=== PATIENT | male | born 1945 | race Caucasian/White ===

== ENCOUNTER 2017-03-06 18:10 | Emergency (ER) | payer MEDICARE ==
[2017-03-06 18:16] VITALS: BP 144/70; PULSE 73; RESP 16; TEMP 96.9
--- NOTE | 2017-03-06 18:53 | XR ---
EXAMINATION TYPE: XR lumbar spine 2 or 3V DATE OF EXAM: 03/06/2017 6:44 PM COMPARISON: NONE HISTORY: Low back pain TECHNIQUE: 3 views FINDINGS: Vertebra have normal alignment. There is some osteopenia. There is 10% anterior wedging of T12 vertebra. There is some vascular calcification. Sacroiliac joints are intact. IMPRESSION: Mild compression fracture of T12 is probably old. Osteopenia.
[2017-03-06] MEDS ORDERED: TOPICAL SKIN ADHESIVE 1 EACH AMP TOPICAL ONE (18:56)
--- NOTE | 2017-03-06 18:56 | ED ---
General Adult HPI - General Chief complaint: Back Pain/Injury Stated complaint: sore on back bleeding, on dialysis Time Seen by Provider: 03/06/17 18:19 Source: patient, RN notes reviewed Mode of arrival: wheelchair Limitations: no limitations - History of Present Illness Initial comments: Patient is a 71-year-old male who presents emergency room today with chief complaint of lower back pain and also a spot that is bleeding into his back. Patient does admit that he injured his back today when he was lifting up the [place] with a methodist. He does admit that his lower back has been bothering him with certain movements of events or twists. He states he took Tylenol earlier today which did give him some relief. Patient admits that he was also had a hot shower which also helped. Patient admits that he had a growth removed on the right side of his back several years ago. He states that he believes he scratched history positive bleed. Patient states that at that time stopping the bleeding at home. She is not on any blood thinners. He denies any other complaints or symptoms at this time. Patient denies any recent fever, chills, shortness of breath, chest pain, abdominal pain, nausea or vomiting, numbness or tingling, dysuria or hematuria, constipation or diarrhea, headaches or visual changes, or any other complaints. - Related Data Home Medications Medication Instructions Recorded Confirmed Aspirin EC [Ecotrin Low Dose] 81 mg PO DAILY 03/06/17 03/06/17 Atenolol [Tenormin] 25 mg PO DAILY 03/06/17 03/06/17 Atorvastatin [Lipitor] 40 mg PO HS 03/06/17 03/06/17 Calcium Carb-Mag Carb-Folic 1 tab PO TID-W/MEALS 03/06/17 03/06/17 [Magnebind 400 Rx] Furosemide [Lasix] 80 mg PO BID 03/06/17 03/06/17 Gemfibrozil [Lopid] 600 mg PO W/SUPPER 03/06/17 03/06/17 Lanthanum Carbonate [Fosrenol] 1,000 mg PO TID-W/MEALS 03/06/17 03/06/17 Lisinopril 40 mg PO DAILY 03/06/17 03/06/17 Omeprazole [PriLOSEC] 20 mg PO W/SUPPER 03/06/17 03/06/17 Sevelamer [Renvela] 1,600 mg PO TID-W/MEALS 03/06/17 03/06/17 Tamsulosin HCl [Flomax] 0.4 mg PO DAILY 03/06/17 03/06/17 Previous Rx's Medication Instructions Recorded Cyclobenzaprine [Flexeril] 10 mg PO TID #20 tab 03/06/17 Allergies Allergy/AdvReac Type Severity Reaction Status Date / Time garlic AdvReac Diarrhea Verified 03/06/17 18:38 prednisone AdvReac Increased Verified 03/06/17 18:38 Blood Pressure sour cream AdvReac Diarrhea Uncoded 03/06/17 18:38 Review of Systems ROS Statement: Those systems with pertinent positive or pertinent negative responses have been documented in the HPI. ROS Other: All systems not noted in ROS Statement are negative. Past Medical History Past Medical History: Coronary Artery Disease (CAD), Diabetes Mellitus, Hyperlipidemia, Hypertension, Renal Disease Additional Past Medical History / Comment(s): Hx. cataracts removed bilat 2003 Hx. kidney biopsy 2012 History of Any Multi-Drug Resistant Organisms: None Reported Past Surgical History: Heart Catheterization With Stent Additional Past Surgical History / Comment(s): fistula left arm, Hx. carotid artery surgery 2006 Past Anesthesia/Blood Transfusion Reactions: No Reported Reaction Date of Last Stent Placement:: 2011 Past Psychological History: No Psychological Hx Reported Smoking Status: Never smoker Past Alcohol Use History: None Reported Past Drug Use History: None Reported - Past Family History Father Additional Family Medical History / Comment(s): Hx. father "brights disease" age 47 Mom CHF at 81 General Exam - General Exam Comments Initial Comments: General: The patient is awake and alert, in no distress, and does not appear acutely ill. Eye: Pupils are equal, round and reactive to light, extra-ocular movements are intact. No nystagmus. There is normal conjunctiva bilaterally. No signs of icterus. Ears, nose, mouth and throat: There are moist mucous membranes and no oral lesions. Neck: The neck is supple, there is no tenderness or JVD. Cardiovascular: There is a regular rate and rhythm. No murmur, rub or gallop is appreciated. Respiratory: Lungs are clear to auscultation, respirations are non-labored, breath sounds are equal. No wheezes, stridor, rales, or rhonchi. Musculoskeletal: Normal ROM, no tenderness. Pain reproduced certain movements of turning, twisting, bending in the lower back. Strength 5/5. Sensation intact. Pulses equal bilaterally 2+. Neurological: A&O x 3. CN II-XII intact, There are no obvious motor or sensory deficits. Coordination appears grossly intact. Speech is normal. Skin: Psychiatric: Cooperative, appropriate mood & affect, normal judgment. Limitations: no limitations Course Vital Signs 03/06/17 18:12 Temperature 96.9 F L Pulse Rate 73 Respiratory 16 Rate Blood Pressure 144/70 O2 Sat by Pulse 100 Oximetry Medical Decision Making - Medical Decision Making 71-year-old male presenting to emergency room for multiple complaints. Does admit to a growth on the back that it began bleeding today. Please see scratched it. Also admits to increased lower back pain over the last few days since lifting a piano top. Patient reexamined at this time shows no signs of distress. His x-ray reviewed does show a indeterminate age fracture of T12. Patient does admit to a fall several weeks ago. At this time patient is advised to follow-up with orthopedics. Advised patient not to bend at waist. Wound has been dressed cleaned here in the emergency room and closed with Dermabond. Patient is advised follow-up with family doctor. Advised return to emergency room if any symptoms increase or worsen. Patient will be started on Flexeril for his pain. Advised that it may make him drowsy. Advised return for any other concerns. Disposition Clinical Impression: Vertebral compression fracture Disposition: HOME SELF-CARE Condition: Good Instructions: Acute Low Back Pain (ED) Additional Instructions: Please follow-up with family doctor and orthopedic doctor over the next 1-2 days. Please do not bend at the waist as discussed. Please use Tylenol for pain and Flexeril as a muscle relaxer. Please be aware that muscle laxer may make you drowsy. Please return to emergency room if any symptoms increase worsen or for any other concerns. Prescriptions: Cyclobenzaprine [Flexeril] 10 mg PO TID #20 tab Referrals: Gene Girard MD [Primary Care Provider] - 1-2 days Caitlyn Mon DO [Doctor of Osteopathic Medicine] - 1-2 days Time of Disposition: 19:13
[2017-03-06] MEDS ORDERED: CYCLOBENZAPRINE 10MG STARTER 3 TAB BTL PO STA (19:11)
== END 2017-03-06 19:31 | disposition home or self-care (01) ==
LOC: EC 18:10
DX: S22.089A Unspecified fracture of T11-T12 vertebra, initial encounter for closed fracture (principal); S31.000A Unspecified open wound of lower back and pelvis without penetration into retroperitoneum, initial encounter; M85.88 Other specified disorders of bone density and structure, other site; I25.10 Atherosclerotic heart disease of native coronary artery without angina pectoris; E78.5 Hyperlipidemia, unspecified; I10 Essential (primary) hypertension; N28.9 Disorder of kidney and ureter, unspecified; Z95.5 Presence of coronary angioplasty implant and graft; Z99.2 Dependence on renal dialysis; Z88.8 Allergy status to other drugs, medicaments and biological substances; Z91.018 Allergy to other foods; Z79.82 Long term (current) use of aspirin; Z79.899 Other long term (current) drug therapy; X50.0XXA Overexertion from strenuous movement or load, initial encounter
CPT/HCPCS: 12001; 72100; 99283

== ENCOUNTER 2018-06-02 21:57 | Inpatient (IN) | payer MEDICARE ==
--- NOTE | 2018-06-02 22:24 | ED ---
Weakness HPI - General Chief complaint: Weakness Stated complaint: Hypotensive Time Seen by Provider: 06/02/18 22:07 Source: patient Mode of arrival: ambulatory Limitations: no limitations - History of Present Illness Initial comments: This patient is a 72-year-old man who presents to be evaluated for generalized weakness and fatigue. The patient states the symptoms have been going on for a few weeks, although only 1 prominent over the past couple of days. He states that the symptoms are particularly bad if he tries to exert himself or when he goes from lying or sitting to upright. He states that sometimes he feels like he'll pass out. The patient believes that he is dehydrated. He has had previous problems with hypotension, and states that he tried to treat himself by increasing his Midodrine, and that helped a little no he still does not feel like his usual self. The patient denies feeling like he has any infection going on. He has not noted sinus type symptoms. No sore throat, cough, congestion. No fever or chills. No chest pain or dyspnea. No abdominal pain, vomiting or diarrhea. The patient states that he does make a little urine but has not noticed any change in that. MD Complaint: generalized weakness, lack of energy, difficulty walking Onset/Timin -: week(s) Location: generalized Severity: moderate Consistency: constant Improves with: none Worsens with: none Associated Symptoms: denies other symptoms - Related Data Home Medications Medication Instructions Recorded Confirmed Aspirin EC [Ecotrin Low Dose] 81 mg PO DAILY 03/06/17 07/12/17 Atenolol [Tenormin] 12.5 mg PO QAM 03/06/17 07/12/17 Atorvastatin [Lipitor] 40 mg PO HS 03/06/17 07/12/17 Calcium Carb-Mag Carb-Folic 3 tab PO TID-W/MEALS 03/06/17 07/12/17 [Magnebind 400 Rx] Gemfibrozil [Lopid] 600 mg PO W/SUPPER 03/06/17 07/12/17 Lanthanum Carbonate [Fosrenol] 1,000 mg PO TID-W/MEALS 03/06/17 07/12/17 Omeprazole [PriLOSEC] 20 mg PO W/SUPPER 03/06/17 07/12/17 Sevelamer [Renvela] 1,600 mg PO TID-W/MEALS 03/06/17 07/12/17 Tamsulosin HCl [Flomax] 0.4 mg PO DAILY 03/06/17 07/12/17 Ciprofloxacin HCl [Cipro] 500 mg PO Q12HR 07/12/17 07/12/17 Gabapentin [Neurontin] 100 mg PO Q8H PRN 07/12/17 07/12/17 Hydrocortisone Pr Cream 1 applic RECTAL DAILY PRN 07/12/17 07/12/17 [Proctosol-Hc 2.5%] Midodrine [ProAmatine] 5 mg PO DAILY PRN 07/12/17 07/12/17 Polyethylene Glycol 3350 [Miralax] 1 dose PO DAILY PRN 07/12/17 07/12/17 Renaplex 1 tab PO DAILY 07/12/17 Sodium Bicarbonate Tab 650 mg PO BID 07/12/17 07/12/17 Velphoro 500 mg PO QAM 07/12/17 fentaNYL 12MCG/HR PATCH [Duragesic 1 patch TOPICAL Q72H 07/12/17 07/12/17 12MCG/HR] Allergies Allergy/AdvReac Type Severity Reaction Status Date / Time hydromorphone [From Dilaudid] Allergy Hallucinati Verified 06/02/18 22:03 ons garlic AdvReac Diarrhea Verified 06/02/18 22:03 prednisone AdvReac Increased Verified 06/02/18 22:03 Blood Pressure sour cream AdvReac Diarrhea Uncoded 06/02/18 22:03 Review of Systems ROS Statement: Those systems with pertinent positive or pertinent negative responses have been documented in the HPI. ROS Other: All systems not noted in ROS Statement are negative. Constitutional: Reports: weakness (The last). Denies: fever, chills ENT: Denies: throat pain, congestion Respiratory: Denies: cough, dyspnea Cardiovascular: Denies: chest pain, palpitations, orthopnea, edema, syncope Gastrointestinal: Denies: abdominal pain, vomiting, diarrhea, melena, hematochezia Genitourinary: Denies: dysuria Musculoskeletal: Reports: back pain (Chronic back pain, he states due to compression fractures) Skin: Denies: rash Neurological: Denies: headache, weakness, numbness, confusion Past Medical History Past Medical History: Coronary Artery Disease (CAD), Diabetes Mellitus, Hyperlipidemia, Hypertension, Renal Disease Additional Past Medical History / Comment(s): PERITONEAL DIALYSIS (CAPD).Hx. cataracts removed bilat 2003 Hx. kidney biopsy 2012 History of Any Multi-Drug Resistant Organisms: None Reported Past Surgical History: Heart Catheterization With Stent Additional Past Surgical History / Comment(s): FIstula left arm. Hx. carotid artery surgery 2005 Past Anesthesia/Blood Transfusion Reactions: No Reported Reaction Date of Last Stent Placement:: 2011 Past Psychological History: No Psychological Hx Reported Smoking Status: Never smoker Past Alcohol Use History: None Reported Past Drug Use History: None Reported - Past Family History Father Additional Family Medical History / Comment(s): Hx. father "brights disease" age 47 Mom CHF at 81 Brother(s) Family Medical History: Deep Vein Thrombosis (DVT) General Exam Limitations: no limitations General appearance: alert, in no apparent distress Head exam: Present: atraumatic, normocephalic Eye exam: Present: normal appearance, PERRL, EOMI. Absent: scleral icterus, conjunctival injection ENT exam: Present: mucous membranes dry Neck exam: Present: normal inspection Respiratory exam: Present: normal lung sounds bilaterally. Absent: respiratory distress, wheezes, rales, rhonchi, stridor Cardiovascular Exam: Present: regular rate, normal rhythm, normal heart sounds. Absent: systolic murmur, diastolic murmur, rubs, gallop GI/Abdominal exam: Present: soft. Absent: distended, tenderness, guarding, rebound Extremities exam: Present: normal inspection, normal capillary refill. Absent: pedal edema, calf tenderness Back exam: Present: normal inspection Neurological exam: Present: alert, oriented X3. Absent: motor sensory deficit Skin exam: Present: warm, dry, intact, normal color. Absent: rash Course Vital Signs 06/02/18 06/02/18 06/02/18 21:59 23:03 23:48 Temperature 98 F Pulse Rate 85 83 80 Respiratory 20 20 20 Rate Blood Pressure 118/70 113/68 129/73 O2 Sat by Pulse 97 99 99 Oximetry EKG Findings - EKG Results: EKG: interpreted by LISETD, sinus rhythm (With PAC, rate 77 bpm), normal axis, normal QRS, normal ST/T Medical Decision Making - Lab Data Result diagrams: 06/02/18 22:23 06/02/18 22:23 Lab Results 06/02/18 06/02/18 06/02/18 Range/Units 22:23 22:23 22:23 WBC 9.5 (3.8-10.6) k/uL RBC 3.64 L (4.30-5.90) m/uL Hgb 10.7 L (13.0-17.5) gm/dL Hct 33.2 L (39.0-53.0) % MCV 91.1 (80.0-100.0) fL MCH 29.3 (25.0-35.0) pg MCHC 32.1 (31.0-37.0) g/dL RDW 15.7 H (11.5-15.5) % Plt Count 356 (150-450) k/uL Neutrophils % (Manual) 74 % Lymphocytes % (Manual) 14 % Monocytes % (Manual) 10 % Eosinophils % (Manual) 2 % Neutrophils # (Manual) 7.03 (1.3-7.7) k/uL Lymphocytes # (Manual) 1.33 (1.0-4.8) k/uL Monocytes # (Manual) 0.95 (0-1.0) k/uL Eosinophils # (Manual) 0.19 (0-0.7) k/uL Nucleated RBCs 0 (0-0) /100 WBC Manual Slide Review Performed RBC Morphology Normal PT (9.0-12.0) sec INR (<1.2) APTT (22.0-30.0) sec Sodium 135 L (137-145) mmol/L Potassium 5.0 (3.5-5.1) mmol/L Chloride 92 L (98-107) mmol/L Carbon Dioxide 24 (22-30) mmol/L Anion Gap 19 mmol/L BUN 67 H (9-20) mg/dL Creatinine 10.90 H* (0.66-1.25) mg/dL Est GFR (CKD-EPI)AfAm 5 (>60 ml/min/1.73 sqM) Est GFR (CKD-EPI)NonAf 4 (>60 ml/min/1.73 sqM) Glucose 126 H (74-99) mg/dL Plasma Lactic Acid Zhen (0.7-2.0) mmol/L Calcium 10.1 (8.4-10.2) mg/dL Magnesium 2.9 H (1.6-2.3) mg/dL Total Bilirubin 0.5 (0.2-1.3) mg/dL AST 19 (17-59) U/L ALT 28 (21-72) U/L Alkaline Phosphatase 98 (38-126) U/L Total Creatine Kinase 51 L (55-170) U/L CK-MB (CK-2) 1.7 (0.0-2.4) ng/mL CK-MB (CK-2) Rel Index 3.3 Troponin I <0.012 (0.000-0.034) ng/mL NT-Pro-B Natriuret Pep pg/mL Total Protein 6.5 (6.3-8.2) g/dL Albumin 3.8 (3.5-5.0) g/dL TSH 0.317 L (0.465-4.680) mIU/L 06/02/18 06/02/18 06/02/18 Range/Units 22:23 22:23 22:23 WBC (3.8-10.6) k/uL RBC (4.30-5.90) m/uL Hgb (13.0-17.5) gm/dL Hct (39.0-53.0) % MCV (80.0-100.0) fL MCH (25.0-35.0) pg MCHC (31.0-37.0) g/dL RDW (11.5-15.5) % Plt Count (150-450) k/uL Neutrophils % (Manual) % Lymphocytes % (Manual) % Monocytes % (Manual) % Eosinophils % (Manual) % Neutrophils # (Manual) (1.3-7.7) k/uL Lymphocytes # (Manual) (1.0-4.8) k/uL Monocytes # (Manual) (0-1.0) k/uL Eosinophils # (Manual) (0-0.7) k/uL Nucleated RBCs (0-0) /100 WBC Manual Slide Review RBC Morphology PT 9.6 (9.0-12.0) sec INR 1.0 (<1.2) APTT 22.7 (22.0-30.0) sec Sodium (137-145) mmol/L Potassium (3.5-5.1) mmol/L Chloride (98-107) mmol/L Carbon Dioxide (22-30) mmol/L Anion Gap mmol/L BUN (9-20) mg/dL Creatinine (0.66-1.25) mg/dL Est GFR (CKD-EPI)AfAm (>60 ml/min/1.73 sqM) Est GFR (CKD-EPI)NonAf (>60 ml/min/1.73 sqM) Glucose (74-99) mg/dL Plasma Lactic Acid Zhen 1.0 (0.7-2.0) mmol/L Calcium (8.4-10.2) mg/dL Magnesium (1.6-2.3) mg/dL Total Bilirubin (0.2-1.3) mg/dL AST (17-59) U/L ALT (21-72) U/L Alkaline Phosphatase (38-126) U/L Total Creatine Kinase (55-170) U/L CK-MB (CK-2) (0.0-2.4) ng/mL CK-MB (CK-2) Rel Index Troponin I (0.000-0.034) ng/mL NT-Pro-B Natriuret Pep 8570 pg/mL Total Protein (6.3-8.2) g/dL Albumin (3.5-5.0) g/dL TSH (0.465-4.680) mIU/L Disposition Clinical Impression: Hypotension, Acute on chronic renal failure Disposition: ADMITTED IP TO THIS HOSP Condition: Poor Referrals: Gene Girard MD [Primary Care Provider] - 1-2 days
[2018-06-02 22:44] LABS: HCT 33.2 % (39.0-53.0); HGB 10.7 gm/dL (13.0-17.5); MCH 29.3 pg (25.0-35.0); MCHC 32.1 g/dL (31.0-37.0); MCV 91.1 fL (80.0-100.0); Mean Platelet Volume 7.5; Platelet Count 356 k/uL (150-450); RBC 3.64 m/uL (4.30-5.90); RDW 15.7 % (11.5-15.5); WBC 9.5 k/uL (3.8-10.6)
[2018-06-02 22:56] LABS: Albumin 3.8 g/dL (3.5-5.0); Calcium 10.1 mg/dL (8.4-10.2); Magnesium 2.9 mg/dL (1.6-2.3); Total Bilirubin 0.5 mg/dL (0.2-1.3); Total Protein 6.5 g/dL (6.3-8.2)
[2018-06-02 22:57] LABS: Eosinophils # (M) 0.19 k/uL (0-0.7); Lymphocytes # (M) 1.33 k/uL (1.0-4.8); Monocytes # (M) 0.95 k/uL (0-1.0); Neutrophils # (M) 7.03 k/uL (1.3-7.7); Neutrophils % (M) 74 %; Nucleated Red Blood Cells 0 /100 WBC (0-0); Total Cells Counted 100
[2018-06-02 22:59] LABS: Partial Thromboplastin Time 22.7 sec (22.0-30.0); Prothrombin Time 9.6 sec (9.0-12.0)
[2018-06-02 23:03] LABS: Creatine Kinase 51 U/L (55-170)
[2018-06-02] MEDS ORDERED: SODIUM CHLORIDE 0.9% 500 ML IV STA (23:04)
[2018-06-02 23:16] LABS: Creatine Kinase MB 1.7 ng/mL (0.0-2.4); Troponin I <0.012 ng/mL (0.000-0.034)
--- NOTE | 2018-06-03 00:09 | XR ---
EXAMINATION TYPE: XR chest 1V portable DATE OF EXAM: 06/02/2018 COMPARISON: NONE HISTORY: Weakness TECHNIQUE: Single frontal view of the chest is obtained. FINDINGS: There is no heart failure nor confluent pneumonic infiltrate. Thoracic aorta is atheromato us. Costophrenic angles are clear. There are chest leads. IMPRESSION: No active cardiopulmonary disease. Atheromatous aorta. There is probably old healed post erior right rib fracture.
[2018-06-03] MEDS ORDERED: ACETAMINOPHEN TAB 325 MG TAB PO PRN (01:14)
[2018-06-03] MEDS ORDERED: NALOXONE 0.4 MG/ML 1 ML VIAL IV PRN (01:14)
[2018-06-03] MEDS ORDERED: HYDROCORTISONE 2.5% RECTAL CREAM 30 GM TUBE RECTAL PRN (01:16)
[2018-06-03] MEDS ORDERED: MIDODRINE 5 MG TAB PO PRN (01:16)
[2018-06-03] MEDS ORDERED: GABAPENTIN 100 MG CAP PO PRN (01:16)
[2018-06-03] MEDS ORDERED: SEVELAMER 800 MG TAB PO SCH (07:30)
[2018-06-03 07:50] LABS: Glucose,Whole Blood 93 mg/dL (75-99)
[2018-06-03] MEDS: CALCIUM CARB-MAG CARB-FOLIC 1 EACH TAB PO SCH ×3 (08:37→17:35)
[2018-06-03] MEDS: ATENOLOL 12.5 MG TAB PO SCH (08:38)
[2018-06-03] MEDS: SEVELAMER 800 MG TAB PO SCH ×3 (08:38→17:36)
[2018-06-03] MEDS: ASPIRIN 81 MG PO SCH (08:38)
[2018-06-03] MEDS: TAMSULOSIN 0.4 MG CAP.ER.24H PO SCH (08:39)
[2018-06-03] MEDS: SODIUM BICARBONATE TAB 650 MG TAB PO SCH ×2 (08:39→20:45)
[2018-06-03] MEDS: HEPARIN SODIUM,PORCINE 5,000 UNIT/ML 1 ML VIAL SQ SCH ×2 (08:39→20:44)
[2018-06-03] MEDS: DIALYSIS (PERIT 1.5%) 2,500 ML 37.5 G/2,500 ML BAG INTRAPERIT SCH ×3 (10:38→23:33)
[2018-06-03] MEDS: HYDROcodone/APAP 7.5-325MG 1 EACH TAB PO PRN (11:36)
[2018-06-03 11:55] LABS: Glucose,Whole Blood 117 mg/dL (75-99)
[2018-06-03] MEDS: FOLIC ACID-VIT B COMPLEX-VIT C 1 CAP PO SCH (13:11)
[2018-06-03] MEDS ORDERED: HYDROcodone/APAP 7.5-325MG 1 EACH TAB PO PRN (13:34)
[2018-06-03] MEDS ORDERED: POLYETHYLENE GLYCOL 3350 17 GM POWD.PACK PO PRN (13:34)
[2018-06-03] MEDS ORDERED: DARBEPOETIN ALFA 40 MCG/0.4 ML SYRINGE SQ SCH (14:30)
--- NOTE | 2018-06-03 15:07 | CONS ---
CONSULTATION REASON FOR CONSULT: End-stage renal disease. HISTORY OF PRESENT ILLNESS: The patient is a 72-year-old male with end-stage renal disease, on peritoneal dialysis. He was admitted to the hospital with complaints of increasing weakness over the past few days. The patient stated he had been feeling dizzy as well. He denied any chest pains. He did have some nausea. He did not have any abdominal pain. His fluid has been clear. Blood pressure was low, but his systolic was above 100. The patient was 113/68 when he came in. The patient states blood pressure had been running much lower as outpatient. His hemoglobin was at 10.7. Cardiac enzymes were negative. PAST MEDICAL HISTORY: End-stage renal disease, CKD mineral bone disorder, hypertension, anemia of chronic disease, gastroesophageal reflux disease, dyslipidemia, hypertension. ALLERGIES: INCLUDE PREDNISONE, GARLIC, DILAUDID. REVIEW OF SYSTEMS: As per HPI. Other systems negative. PAST SURGICAL HISTORY: CAPD catheter placement, cataract surgery, kidney biopsy, cardiac catheterization with coronary stent placement, left arm AV fistula. Carotid endarterectomy. SOCIAL HISTORY: Negative for smoking, drug abuse or alcohol abuse. EXAMINATION: Patient is comfortable, awake, alert, oriented x3. He is not in any acute distress. Blood pressure was 133/70, heart rate 88 per minute. Patient is afebrile. Examination of the heart S1, S2. Examination lungs bilateral breath sounds are heard. Abdomen is soft, nontender. Examination lower extremities shows no evidence of edema. G[employer] O[employer]ATOR exam is grossly intact. LAB: Show sodium 135, potassium 5.0, phosphorus was 8.0, hemoglobin 10.7 g/dL. ASSESSMENT: 1. End-stage renal disease, on peritoneal dialysis. We will continue to maintain patient on PD. We will maintain him on 1.5% exchanges. Blood pressure is not significantly low in the hospital. I do not see an obvious source of infection. We will continue to monitor for now. 2. 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 The patient is advised to continue his home phosphate binders. 3. Anemia of chronic disease. We will maintain patient on Aranesp. 4. History of hypertension, maintained on small dose of Tenormin and Norvasc. PLAN: Maintain 1.5% solution q.6 hours for now. Repeat labs in a.m. Maintain patient on Aranesp. Thank you for this consultation. We will continue to follow the patient with you during his hospitalization. OTTO / WIL[place]: [id number] /
[2018-06-03] MEDS: PANTOPRAZOLE 40 MG TABLET PO SCH (15:31)
[2018-06-03 15:48] LABS: Amorphous Sediment,Urine Rare /hpf; Appearance,Urine Clear (Clear); Bilirubin,Urine Negative (Negative); Blood,Urine Negative (Negative); Color,Urine Light Yellow; Glucose,Urine (UA) 2+ (Negative); Hyaline Casts,Urine 1 /lpf (0-2); Ketones,Urine Negative (Negative); Leukocyte Esterase,Urine Negative (Negative); Mucus,Urine Rare /hpf; Nitrite,Urine Negative (Negative); PH, Urine 8.5 (5.0-8.0); Protein,Urine 2+ (Negative); RBC,Urine 1 /hpf (0-5); Specific Gravity,Urine 1.007 (1.001-1.035); Urobilinogen,Urine <2.0 mg/dL (<2.0); WBC,Urine 15 /hpf (0-5)
[2018-06-03] MEDS: MAGNEBIND PO SCH ×2 (17:15→20:41)
[2018-06-03 17:24] LABS: Glucose,Whole Blood 114 mg/dL (75-99)
[2018-06-03] MEDS ORDERED: PANTOPRAZOLE 40 MG TABLET PO SCH (17:30)
[2018-06-03] MEDS: CALCIUM ACETATE 667 MG CAP PO SCH (17:35)
--- NOTE | 2018-06-03 19:58 | HP ---
HISTORY AND PHYSICAL DATE OF SERVICE: June 03, 2018 PRESENTING COMPLAINT: Weak and tired. HISTORY OF PRESENTING COMPLAINT: This is a very pleasant 72-year-old patient of Dr. Gene Girard. Chronic stable medical conditions include coronary artery disease with history of stent, diabetes, hypertension, hyperlipidemia. The patient has end-stage renal failure on peritoneal dialysis. The patient does nocturnal dialysis, does not make any urine. The patient has been followed by a per diem rn Dr. Chun. The patient presents with a few days of feeling weak and tired. Denies any edema. No fever, chills. No cough. Appetite is okay. He has been having bowel movements. Just feels very run down. The patient in the ER was found to have a creatinine of 10.9 and a phosphorus of 8, magnesium of 2.9. REVIEW OF SYSTEMS: CONSTITUTIONAL: Weak and tired. HEENT none. RESPIRATORY: None. CARDIOVASCULAR: No chest pain. No short of breath. GASTROINTESTINAL: None. GENITOURINARY: Does not make any urine. MUSCULOSKELETAL: Chronic low back pain. DERMATOLOGICAL, HEMATOLOGIC, LYMPHATIC: none. PSYCHIATRY none. NEUROLOGICAL none. PAST MEDICAL HISTORY: Coronary artery disease, diabetes, hyperlipidemia, hypertension, end-stage kidney disease on peritoneal dialysis, cataracts. PAST SURGICAL HISTORY: Cardiac cath with stent, fistula, left arm, carotid artery surgery. SOCIAL HISTORY: No smoking. No alcohol. Lives by himself. FAMILY HISTORY: DVT. Father had Bright's disease age 47. Mother had congestive heart failure. HOME MEDICATIONS: 1. Norvasc 2.5 mg p.o. daily. 2. Sodium bicarb 650 mg p.o. daily. 3. [place] Plex 1 tablet p.o. daily. 4. MiraLAX 17 g p.o. daily p.r.n. 5. Protonix 40 mg p.o. daily. 6. Midodrine 5 mg p.o. daily p.r.n. 7. MagneBind 3 tablets p.o. t.i.d. 8. [place] 7.5 one tab p.o. q.6h p.r.n. 9. Lopid 600 mg p.o. daily. 10.Neurontin 100 mg p.o. t.i.d. 11.Lasix 80 mg p.o. daily. 12.PhosLo 30/34 mg p.o. t.i.d. 13.Calcitriol 0.5 mcg Monday, Monday, Monday, , Monday. 14.Lipitor 40 mg p.o. daily. 15.Tenormin 12.5 p.o. daily. 16.Aspirin 81 mg p.o. daily. ALLERGY: TO DILAUDID, GARLIC, PREDNISONE, SOUR CREAM. PHYSICAL EXAMINATION: VITAL SIGNS: Vital signs on presentation, temperature 98, pulse 85, respiratory rate 20, blood pressure 108/74, pulse ox 97% on room air. GENERAL APPEARANCE: Average built, sitting up, tired appearing. EYES: Pupils are equal. Conjunctivae normal. HEENT: External appearance of nose and ears normal. Oral cavity normal. NECK: JVD not raised. Mass not palpable. RESPIRATORY: Effort normal. Lungs fair entry. CARDIOVASCULAR: 1st and 2nd sounds normal. No edema. ABDOMEN: Soft, nontender. Liver and spleen not palpable. Dialysis catheter in place. LYMPHATICS: No lymph nodes palpable in the neck and axilla. PSYCHIATRY: Alert and oriented x3. Mood and affect normal. NEUROLOGICAL: Pupils equal. Cranial nerves grossly intact. Power and sensation grossly intact. INVESTIGATIONS: White count 9.5, hemoglobin 10.7, potassium 5, BUN 16, creatinine 10.9, phosphorus 8, magnesium 2.9, 0.3 UA negative for leukoesterase or nitrite. Chest x-ray film interpreted by me shows questionable is a portable film. Lungs carnes apparently clear. EKG tracing interpreted by me shows normal sinus rhythm, poor R-wave progression. ASSESSMENT: 1. This is a patient presents with weak, tired, run down. The symptoms could be from incomplete peritoneal dialysis given that creatinine significantly elevated. At the same time, cannot rule out silent cardiac ischemia. The patient has not had a stress test for a while. 2. Coronary artery disease with prior history of stent. 3. Hyperlipidemia. 4. Essential hypertension. 5. Chronic low back pain, cause undetermined. 6. 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 7. Normocytic anemia secondary to chronic kidney disease. 8. Hyperphosphatemia secondary to mineral bone disease and renal failure. PLAN: Nephrology was consulted. They will adjust patient's peritoneal dialysate. At the same time, we will get a cardiology opinion to get a stress test to make sure there is no underlying silent ischemia. The patient is already on aspirin and beta lamont. Care was discussed with the patient. Questions were answered. Copy to Dr. Girard. MMJUANL / IJN: [id number] /
[2018-06-03 20:36] LABS: Glucose,Whole Blood 128 mg/dL (75-99)
[2018-06-03] MEDS: ATORVASTATIN 40 MG TAB PO SCH (20:45)
[2018-06-04] MEDS: DIALYSIS (PERIT 1.5%) 2,500 ML 37.5 G/2,500 ML BAG INTRAPERIT SCH ×3 (05:50→18:31)
[2018-06-04 07:08] LABS: Glucose,Whole Blood 115 mg/dL (75-99)
[2018-06-04] MEDS: MAGNEBIND PO SCH ×3 (08:41→20:28)
[2018-06-04] MEDS: PANTOPRAZOLE 40 MG TABLET PO SCH (08:41)
[2018-06-04] MEDS: CALCIUM CARB-MAG CARB-FOLIC 1 EACH TAB PO SCH ×3 (08:41→17:54)
[2018-06-04] MEDS: CALCIUM ACETATE 667 MG CAP PO SCH ×3 (08:41→17:40)
[2018-06-04] MEDS: SEVELAMER 800 MG TAB PO SCH ×3 (08:42→17:41)
[2018-06-04] MEDS: FUROSEMIDE 80 MG TAB PO SCH (08:42)
[2018-06-04] MEDS: ASPIRIN 81 MG PO SCH (08:42)
[2018-06-04] MEDS: amLODIPine 2.5 MG TAB PO SCH (08:42)
[2018-06-04] MEDS: GEMFIBROZIL 600 MG TAB PO SCH (08:43)
[2018-06-04] MEDS: ATENOLOL 12.5 MG TAB PO SCH (08:43)
[2018-06-04] MEDS: SODIUM BICARBONATE TAB 650 MG TAB PO SCH ×2 (08:44→20:31)
[2018-06-04] MEDS: TAMSULOSIN 0.4 MG CAP.ER.24H PO SCH (08:44)
[2018-06-04] MEDS: HEPARIN SODIUM,PORCINE 5,000 UNIT/ML 1 ML VIAL SQ SCH ×2 (08:44→20:31)
[2018-06-04] MEDS: HYDROcodone/APAP 7.5-325MG 1 EACH TAB PO PRN ×2 (08:53→20:36)
[2018-06-04 09:48] LABS: Anisocytosis Slight; HCT 34.7 % (39.0-53.0); HGB 11.3 gm/dL (13.0-17.5); MCH 30.2 pg (25.0-35.0); MCHC 32.6 g/dL (31.0-37.0); MCV 92.6 fL (80.0-100.0); Mean Platelet Volume 7.1; Platelet Count 355 k/uL (150-450); RBC 3.75 m/uL (4.30-5.90); WBC 11.7 k/uL (3.8-10.6)
[2018-06-04 09:55] LABS: Calcium 9.6 mg/dL (8.4-10.2)
--- NOTE | 2018-06-04 10:15 | P.CRDCN ---
History of Present Illness Consult date: 06/04/18 Chief complaint: Fatigue and weakness History of present illness: This is a pleasant 72-year-old gentleman with a past medical history significant for coronary artery disease and prior stenting with unknown details at this point, the patient stated that he does follow with Dr. Goldman in the office as an outpatient, as well as history of end-stage renal disease on peritoneal dialysis, presented to the hospital because he was not feeling well. The patient denies any specific symptoms of chest pain or chest discomfort or any shortness of breath or dizziness or lightheadedness but he states overall he was feeling weak and tired. No dizziness or lightheadedness and no syncope. He has been checking the blood pressure at home and it has been low according to what he is saying. The blood pressure in the hospital has been reasonably within normal limits. He underwent one set of enzymes that came in to be unremarkable as well. I am in process of obtaining 2 more sets of serial cardiac enzymes. The EKG did show sinus rhythm with nonspecific changes only. No ischemic ST or T-wave abnormalities noted. The patient currently is on aspirin, statin, and he is also on beta lamont with atenolol. I am going to obtain 2 more sets of serial cardiac enzymes to rule out any acute coronary event. Obtain an echocardiogram was Doppler to evaluate left ventricular systolic function. We'll continue following up with him. Past Medical History Past Medical History: Coronary Artery Disease (CAD), Diabetes Mellitus, Hyperlipidemia, Hypertension, Renal Disease Additional Past Medical History / Comment(s): PERITONEAL DIALYSIS (CAPD).Hx. cataracts removed bilat 2003 Hx. kidney biopsy 2012 History of Any Multi-Drug Resistant Organisms: None Reported Past Surgical History: Heart Catheterization With Stent Additional Past Surgical History / Comment(s): FIstula left arm. Hx. carotid artery surgery 2005 Past Anesthesia/Blood Transfusion Reactions: No Reported Reaction Date of Last Stent Placement:: 2011 Past Psychological History: No Psychological Hx Reported Smoking Status: Never smoker Past Alcohol Use History: None Reported Past Drug Use History: None Reported - Past Family History Father Additional Family Medical History / Comment(s): Hx. father "brights disease" age 47 Mom CHF at 81 Brother(s) Family Medical History: Deep Vein Thrombosis (DVT) Medications and Allergies Home Medications Medication Instructions Recorded Confirmed Type Aspirin EC [Ecotrin Low Dose] 81 mg PO DAILY 03/06/17 06/03/18 History Atenolol [Tenormin] 12.5 mg PO QAM 03/06/17 06/03/18 History Atorvastatin [Lipitor] 40 mg PO DAILY 03/06/17 06/03/18 History Gemfibrozil [Lopid] 600 mg PO DAILY 03/06/17 06/03/18 History Gabapentin [Neurontin] 100 mg PO TID 07/12/17 06/03/18 History Midodrine [ProAmatine] 5 mg PO DAILY PRN 07/12/17 06/03/18 History Polyethylene Glycol 3350 [Miralax] 17 gm PO DAILY PRN 07/12/17 06/03/18 History Renaplex 1 tab PO DAILY 07/12/17 06/03/18 History Sodium Bicarbonate Tab 650 mg PO DAILY 07/12/17 06/03/18 History Calcitriol 0.5 mcg PO MOTUWETHFR 06/03/18 06/03/18 History Calcium Acetate [Phoslo] 1,334 mg PO TID 06/03/18 06/03/18 History Furosemide [Lasix] 80 mg PO DAILY 06/03/18 06/03/18 History HYDROcodone/APAP 7.5-325MG [[place] 1 tab PO Q6HR PRN 06/03/18 06/03/18 History 7.5-325] Magnebind 300mg 3 tab PO TID 06/03/18 06/03/18 History Pantoprazole Sodium [Protonix] 40 mg PO DAILY 06/03/18 06/03/18 History amLODIPine [Norvasc] 2.5 mg PO DAILY 06/03/18 06/03/18 History Allergies Allergy/AdvReac Type Severity Reaction Status Date / Time hydromorphone [From Dilaudid] Allergy Hallucinati Verified 06/03/18 13:06 ons garlic AdvReac Diarrhea Verified 06/03/18 13:06 prednisone AdvReac Increased Verified 06/03/18 13:06 Blood Pressure sour cream AdvReac Diarrhea Uncoded 06/02/18 22:03 Physical Exam Vitals: Vital Signs Temp Pulse Pulse Resp BP BP Pulse Ox 06/04/18 07:00 97.5 F L 76 18 130/69 94 L 06/03/18 23:00 98.6 F 79 18 148/80 94 L 06/03/18 15:00 97.5 F L 84 20 101/62 94 L 06/03/18 10:39 97.9 F 83 20 151/75 94 L Intake and Output 06/03/18 06/04/18 06/04/18 22:59 06:59 14:59 Intake Total 300 350 Balance 300 350 Intake: Oral 300 350 Other: Voiding Method CAPD # Voids 0 # Bowel Movements 1 - Constitutional General appearance: no acute distress - Respiratory Respiratory: bilateral: CTA - Cardiovascular Rhythm: regular Heart sounds: normal: S1, S2 Results 06/04/18 09:20 06/04/18 09:20 CBC 06/04/18 Range/Units 09:20 WBC 11.7 H (3.8-10.6) k/uL RBC 3.75 L (4.30-5.90) m/uL Hgb 11.3 L (13.0-17.5) gm/dL Hct 34.7 L (39.0-53.0) % Plt Count 355 (150-450) k/uL Comprehensive Metabolic Panel 06/04/18 Range/Units 09:20 Sodium 135 L (137-145) mmol/L Potassium 5.0 (3.5-5.1) mmol/L Chloride 91 L (98-107) mmol/L Carbon Dioxide 29 (22-30) mmol/L BUN 69 H (9-20) mg/dL Creatinine 11.47 H* (0.66-1.25) mg/dL Glucose 101 H (74-99) mg/dL Calcium 9.6 (8.4-10.2) mg/dL Current Medications Generic Name Dose Route Start Last Admin Trade Name Freq PRN Reason Stop Dose Admin Acetaminophen 650 mg 06/03/18 01:14 Tylenol Tab PO Q6HR PRN Mild Pain or Fever > 100.5 Hydrocodone Bitart/Acetaminophen 1 each 06/03/18 11:19 06/04/18 08:53 [place] 7.5-325 PO 1 each Q6H PRN Administration Pain Hydrocodone Bitart/Acetaminophen 1 each 06/03/18 13:34 [place] 7.5-325 PO Q6HR PRN Pain Amlodipine Besylate 2.5 mg 06/04/18 09:00 06/04/18 08:42 Norvasc PO 2.5 mg DAILY LULA Administration Aspirin 81 mg 06/03/18 09:00 06/04/18 08:42 Aspirin PO 81 mg DAILY LULA Administration Atenolol 12.5 mg 06/03/18 09:00 06/04/18 08:43 Tenormin PO 12.5 mg QAM LULA Administration Atorvastatin Calcium 40 mg 06/03/18 21:00 06/03/18 20:45 Lipitor PO 40 mg HS LULA Administration Ca Carbonate/Folic Ac/Mg Carbonate 3 each 06/03/18 07:30 06/04/18 08:41 Magnebind 400 PO 3 each TID-W/MEALS LULA Administration Calcitriol 0.5 mcg 06/04/18 12:00 Rocaltrol PO MOTUWETHFR LULA Calcium Acetate 1,334 mg 06/03/18 17:30 06/04/18 08:41 Phoslo PO 1,334 mg TID-W/MEALS LULA Administration Darbepoetin Kenan 40 mcg 06/03/18 14:30 06/03/18 17:34 Aranesp SQ 40 mcg Q7D LULA Administration Furosemide 80 mg 06/04/18 09:00 06/04/18 08:42 Lasix PO 80 mg DAILY LULA Administration Gabapentin 100 mg 06/03/18 01:16 Neurontin PO Q8H PRN Itching Gemfibrozil 600 mg 06/04/18 07:30 06/04/18 08:43 Lopid PO 600 mg AC-BRKFST LULA Administration Heparin Sodium (Porcine) 5,000 unit 06/03/18 09:00 06/04/18 08:44 Heparin SQ 5,000 unit Q12HR LULA Administration Hydrocortisone 1 applic 06/03/18 01:16 Proctosol-Hc 2.5% RECTAL DAILY PRN Hemorrhoids Peritoneal Dialysis Solution 37.5 g in 2,500 mls @ 0 mls/hr 06/03/18 12:00 05:50 Delflex With 1.5% Dextrose (2,500 Ml) INTRAPERIT 2,000 mls/hr Q6HR LULA Administration Protocol As Directed Midodrine 5 mg 06/03/18 01:16 Proamatine PO DAILY PRN BP BELOW 120/60 Multivit/Ca Carb/B Cmplx/FA/Prenat 1 each 06/03/18 12:00 06/03/18 13:11 Nephrocaps PO 1 each DAILY@1200 LULA Administration Naloxone HCl 0.2 mg 06/03/18 01:14 Narcan IV Q2M PRN Opioid Reversal Magnebind 300 3 tab 06/03/18 16:00 06/04/18 08:41 PO Not Given TID LULA Pantoprazole Sodium 40 mg 06/03/18 13:45 06/04/18 08:41 Protonix PO 40 mg AC-BRKFST LULA Administration Polyethylene Glycol 17 gm 06/03/18 13:34 Miralax PO DAILY PRN Constipation Sevelamer Carbonate 1,600 mg 06/03/18 07:30 06/04/18 08:42 Renvela PO 1,600 mg TID-W/MEALS LULA Administration Sodium Bicarbonate 650 mg 06/03/18 09:00 06/04/18 08:44 Sodium Bicarbonate Tab PO 650 mg BID LULA Administration Tamsulosin HCl 0.4 mg 06/03/18 09:00 06/04/18 08:44 Flomax PO 0.4 mg DAILY LULA Administration Intake and Output 06/03/18 06/04/18 06/04/18 22:59 06:59 14:59 Intake Total 300 350 Balance 300 350 Intake: Oral 300 350 Other: Voiding Method CAPD # Voids 0 # Bowel Movements 1 06/04/18 09:20 06/04/18 09:20 Assessment and Plan Assessment: Assessment #1 fatigue and weakness #2 end stage renal disease on peritoneal dialysis #3 coronary artery disease and status post PCI #4 dyslipidemia Plan #1 acute coronary event to be ruled out. #2 follow-up with the serial cardiac enzymes #3 the EKG did not show any significant ST or T-wave abnormalities #4 follow-up with the echo as well. Thank you for allowing us participate in his care and we will continue following up with the patient
[2018-06-04 10:44] LABS: Hemoglobin A1C 5.7 % (4.0-6.0)
[2018-06-04 10:44] LABS: Band Neutrophils % 2 %; Basophils # (M) 0.12 k/uL (0-0.2); Eosinophils # (M) 0.82 k/uL (0-0.7); Lymphocytes # (M) 1.76 k/uL (1.0-4.8); Metamyelocytes # (M) 0.12 k/uL (0); Metamyelocytes % 1 %; Monocytes # (M) 1.05 k/uL (0-1.0); Myelocytes # (M) 0.35 k/uL (0); Myelocytes % 3 %; Neutrophils % (M) 65 %; Nucleated Red Blood Cells 0 /100 WBC (0-0); Total Cells Counted 200
[2018-06-04 12:12] LABS: Glucose,Whole Blood 109 mg/dL (75-99)
[2018-06-04] MEDS: CALCITRIOL 0.25 MCG CAP PO SCH ×2 (12:30→13:05)
[2018-06-04] MEDS: FOLIC ACID-VIT B COMPLEX-VIT C 1 CAP PO SCH (12:31)
--- NOTE | 2018-06-04 12:49 | ECHOF ---
Referral Reason:cad MEASUREMENTS -------- HEIGHT: 172.7 cm WEIGHT: 66.7 kg BP: 148/80 IVSd: 1.1 cm (0.6 - 1.1) LVIDd: 4.3 cm (3.9 - 5.3) LVPWd: 1.3 cm (0.6 - 1.1) IVSs: 1.1 cm LVIDs: 3.8 cm LVPWs: 1.6 cm LAESV Index (A-L): 27.47 ml/m Ao Diam: 3.1 cm (2.0 - 3.7) AV Cusp: 1.8 cm (1.5 - 2.6) LA Diam: 2.9 cm (2.7 - 3.8) MV EXCURSION: 10.065 mm (> 18.000) MV EF SLOPE: 45 mm/s (70 - 150) EPSS: 1.2 cm MV E Michael: 0.88 m/s MV DecT: 180 ms MV A Michael: 1.39 m/s MV E/A Ratio: 0.63 RAP: 5.00 mmHg RVSP: 25.51 mmHg FINDINGS -------- This was a technically good study. The left ventricular size is normal. There is mild concentric left ventricular hypertrophy. Overa ll left ventricular systolic function is mildly impaired with, an EF between 45 - 50 %. Basal infer oseptal LV wall motion is hypokinetic. Mid inferoseptal LV wall motion is hypokinetic. The right ventricle is normal in size and function. The left atrial size is normal. The right atrium is normal in size. Aortic valve is trileaflet and is mildly thickened. The mitral valve leaflets are mildly thickened. Mild mitral annular calcification present. Mild m itral regurgitation is present. Mild tricuspid regurgitation present. The right ventricular systolic pressure, as measured by Doppl er, is 25.51mmHg. Pulmonic valve appears structurally normal. The aortic root size is normal. Normal inferior vena cava with normal inspiratory collapse consistent with estimated right atrial pre ssure of 5 mmHg. There is a trivial pericardial effusion present. CONCLUSIONS -------- 1. This was a technically good study. 2. The left ventricular size is normal. 3. There is mild concentric left ventricular hypertrophy. 4. Overall left ventricular systolic function is mildly impaired with, an EF between 45 - 50 %. 5. Basal inferoseptal LV wall motion is hypokinetic. 6. Mid inferoseptal LV wall motion is hypokinetic. 7. The right ventricle is normal in size and function. 8. The left atrial size is normal. 9. The right atrium is normal in size. 10. Aortic valve is trileaflet and is mildly thickened. 11. The mitral valve leaflets are mildly thickened. 12. Mild mitral annular calcification present. 13. Mild mitral regurgitation is present. 14. Mild tricuspid regurgitation present. 15. The right ventricular systolic pressure, as measured by Doppler, is 25.51mmHg. 16. Pulmonic valve appears structurally normal. 17. The aortic root size is normal. 18. Normal inferior vena cava with normal inspiratory collapse consistent with estimated right atrial pressure of 5 mmHg. 19. There is a trivial pericardial effusion present. [employer] SUPERVISOR: Edita James RDCS
[2018-06-04 17:25] LABS: Glucose,Whole Blood 110 mg/dL (75-99)
[2018-06-04] MEDS ORDERED: CALCIUM CARB-MAG CARB-FOLIC 1 EACH TAB PO ONE (18:00)
--- NOTE | 2018-06-04 18:02 | PN ---
PROGRESS NOTE DATE OF SERVICE: 06/04/2018 PRESENTING COMPLAINT: Blood in stool. INTERVAL HISTORY: This patient presented weak and tired. Informed me today he is having some blood clots in the stool, feeling weak and tired. Also on hemodialysis. Seen by Cardiology; not for any further testing. Two-D echocardiogram did show wall motion abnormalities. The patient denies any abdominal pain. No dizziness. No lightheadedness. No fever or chills. REVIEW OF SYSTEMS: Done for constitutional, cardiovascular, GI, pulmonary; relevant findings as above. CURRENT MEDICATIONS: Reviewed. PHYSICAL EXAMINATION: Temperature 97.1, pulse 75, respiration 18, blood pressure 130/75, pulse ox 97% on room air. GENERAL APPEARANCE: Sitting up on bed, tired-appearing. EYES: Pupils equal. Conjunctivae normal. HEENT: External appearance of nose and ears normal. Oral cavity normal. NECK: JVD not raised. Mass not palpable. RESPIRATORY: Effort normal. Lungs are clear. CARDIOVASCULAR: First and second sounds normal. No edema. ABDOMEN: Soft, non-tender. Liver and spleen not palpable. PSYCHIATRY: Alert and oriented x3. Mood and affect normal. INVESTIGATIONS: White count 11.7, hemoglobin 11.3, potassium 5, BUN 69, creatinine 11.47. ASSESSMENT: 1. Acute gastrointestinal bleed. The patient has been noticing blood clots; it looks like for over 2 days. 2. Coronary artery disease with prior history of stent. Two-D echocardiogram showing wall motion abnormalities. No further intervention per Cardiology at the present time. 3. Hyperlipidemia. 4. Essential hypertension. 5. Chronic low back pain. 6. 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 7. Normocytic anemia secondary to chronic kidney disease. 8. Hyperphosphatemia secondary to mineral bone disease and renal failure. 9. Hypercalcemia per calcium reported from Dr. Wilkinson's office. PLAN: Spoke to Dr. Wilkinson. Will stop patient's Calcitriol for right now. GI has been consulted. Will speak to Dr. Wilkinson to see which oral capsule calcium supplementations can be taken on for right now. Patient will be switched over to a clear liquid diet. MMODL / IJN: [id number] /
[2018-06-04] MEDS: ATORVASTATIN 40 MG TAB PO SCH (20:31)
[2018-06-04 22:09] LABS: Glucose,Whole Blood 117 mg/dL (75-99)
--- NOTE | 2018-06-04 22:17 | PN ---
PROGRESS NOTE Patient is seen for followup for end-stage renal disease. He is currently sitting up in bed. The patient states she is feeling better. He is not as weak. PHYSICAL EXAMINATION: On examination, the blood pressure was 130/69, heart rate of 75 per minute. He is afebrile. Examination of the heart S1, S2. Examination of the lungs bilateral breath sounds are heard. Abdomen is soft, nontender. Examination of lower extremity shows no evidence of edema. TYPISTS SUPERVISOR exam is grossly intact. LAB: Show sodium of 135, potassium 5.0, serum creatinine 11.4, calcium was 9.6, stool for occult blood was positive and hemoglobin was 11.3 g/dL. ASSESSMENT: 1. End-stage renal disease, on peritoneal dialysis, maintained on 1.5% solution exchanges. I will increase the dialysis to q.4 hours given the elevated creatinine. We will continue with the 1.4% solution. 2. Possible gastroenteritis. The patient has been having diarrhea, however, he states it is better. 3. Hypertension, currently controlled. 4. CKD mineral bone disorder. PTH was low as outpatient and calcitriol will be held. His calcium is currently not elevated. Patient is maintained on non calcium binders. Continue with the MagneBind and Renvela. PLAN: Increase CAPD exchanges to q.4 hours. Continue with the 1.5% solutions and hold off on Rocaltrol for now. MMODL / IJN: [id number] /
[2018-06-05] MEDS: DIALYSIS (PERIT 1.5%) 2,500 ML 37.5 G/2,500 ML BAG INTRAPERIT SCH ×5 (00:15→20:54)
[2018-06-05] MEDS: HYDROcodone/APAP 7.5-325MG 1 EACH TAB PO PRN ×2 (06:18→17:32)
[2018-06-05 07:15] LABS: Glucose,Whole Blood 99 mg/dL (75-99)
[2018-06-05] MEDS: SEVELAMER 800 MG TAB PO SCH ×3 (08:35→17:34)
[2018-06-05] MEDS: PANTOPRAZOLE 40 MG TABLET PO SCH (08:35)
[2018-06-05] MEDS: CALCIUM ACETATE 667 MG CAP PO SCH ×3 (08:35→17:34)
[2018-06-05] MEDS: FUROSEMIDE 80 MG TAB PO SCH (08:36)
[2018-06-05] MEDS: amLODIPine 2.5 MG TAB PO SCH (08:36)
[2018-06-05] MEDS: GEMFIBROZIL 600 MG TAB PO SCH (08:36)
[2018-06-05] MEDS: ATENOLOL 12.5 MG TAB PO SCH (08:36)
[2018-06-05] MEDS: ASPIRIN 81 MG PO SCH (08:37)
[2018-06-05] MEDS: HEPARIN SODIUM,PORCINE 5,000 UNIT/ML 1 ML VIAL SQ SCH ×2 (08:37→22:11)
[2018-06-05] MEDS: TAMSULOSIN 0.4 MG CAP.ER.24H PO SCH (08:38)
[2018-06-05] MEDS: MAGNEBIND PO SCH ×3 (08:38→22:17)
[2018-06-05 09:36] VITALS: BMI 21.6
--- NOTE | 2018-06-05 10:10 | P.CONS ---
History of Present Illness - Reason for Consult Consult date: 06/05/18 Rectal bleeding Requesting physician: Arsen Feng - History of Present Illness 72-year-old gentleman with a past medical history of end-stage renal disease peritoneal dialysis, chronic back pain, CAD prior stenting, admitted with multiple complaints of fatigue weakness "not feeling well". Patient states prior to admission for about a week he was having increased loose bowel movements as well as nausea vomiting thought he was dehydrated. He did notice some blood tinged bowel movements at that time. Presently he is passing nonbloody bowel movements reports slight constipation. Last colonoscopy was in September 2013 evidence of scattered sigmoid diverticulosis. No history of peptic ulcer disease. Normal EGD 2015 [facility] for evaluation of iron deficiency anemia. Denies fever chills or weight loss. Abdominal pain was diffuse across the midabdomen when he was experiencing the loose bowel movements however presently he is without abdominal pain. Requesting discharge. Stool occult blood positive. Denies excessive usage of aspirin or NSAIDs. Admission hemoglobin 10.4 currently 11.3. INR 1.0. Admission BUN 67. Creatinine 10.9 presently BUN is 69. Creatinine 11.4. Review of Systems Constitutional: Denies fever, chills, sweats, weight gain, or loss. Fatigue weakness. HEENT: Negative for migraines, blurred vision or loss, earaches, drainage, tinnitus, oral mucosal lesions, dysphagia, or odynophagia. Cardiac: Negative for chest pain, arrhythmias, or palpitation. Respiratory: Negative for shortness of breath, hemoptysis, cough, or sputum production. Gastrointestinal: See HPI for pertinent findings. Genitourinary: Negative for hematuria, urgency, frequency, polyuria, dysuria, or penile discharge. Musculoskeletal: Negative for muscle aches, swelling, arthritis, and arthralgias. Neurologic: Negative for stroke or TIA. Endocrine: Negative for thyroid problems. Skin: Negative for rash or itching. Psychiatric: Negative history for depression and anxiety Past Medical History Past Medical History: Coronary Artery Disease (CAD), Diabetes Mellitus, Hyperlipidemia, Hypertension, Renal Disease Additional Past Medical History / Comment(s): PERITONEAL DIALYSIS (CAPD).Hx. cataracts removed bilat 2003 Hx. kidney biopsy 2012 History of Any Multi-Drug Resistant Organisms: None Reported Past Surgical History: Heart Catheterization With Stent Additional Past Surgical History / Comment(s): FIstula left arm. Hx. carotid artery surgery 2005 Past Anesthesia/Blood Transfusion Reactions: No Reported Reaction Date of Last Stent Placement:: 2011 Past Psychological History: No Psychological Hx Reported Smoking Status: Never smoker Past Alcohol Use History: None Reported Past Drug Use History: None Reported - Past Family History Father Additional Family Medical History / Comment(s): Hx. father "brights disease" age 47 Mom CHF at 81 Brother(s) Family Medical History: Deep Vein Thrombosis (DVT) Medications and Allergies Home Medications Medication Instructions Recorded Confirmed Type Aspirin EC [Ecotrin Low Dose] 81 mg PO DAILY 03/06/17 06/03/18 History Atenolol [Tenormin] 12.5 mg PO QAM 03/06/17 06/03/18 History Atorvastatin [Lipitor] 40 mg PO DAILY 03/06/17 06/03/18 History Gemfibrozil [Lopid] 600 mg PO DAILY 03/06/17 06/03/18 History Gabapentin [Neurontin] 100 mg PO TID 07/12/17 06/03/18 History Midodrine [ProAmatine] 5 mg PO DAILY PRN 07/12/17 06/03/18 History Polyethylene Glycol 3350 [Miralax] 17 gm PO DAILY PRN 07/12/17 06/03/18 History Renaplex 1 tab PO DAILY 07/12/17 06/03/18 History Sodium Bicarbonate Tab 650 mg PO DAILY 07/12/17 06/03/18 History Calcitriol 0.5 mcg PO MOTUWETHFR 06/03/18 06/03/18 History Calcium Acetate [Phoslo] 1,334 mg PO TID 06/03/18 06/03/18 History Furosemide [Lasix] 80 mg PO DAILY 06/03/18 06/03/18 History HYDROcodone/APAP 7.5-325MG [[place] 1 tab PO Q6HR PRN 06/03/18 06/03/18 History 7.5-325] Magnebind 300mg 3 tab PO TID 06/03/18 06/03/18 History Pantoprazole Sodium [Protonix] 40 mg PO DAILY 06/03/18 06/03/18 History amLODIPine [Norvasc] 2.5 mg PO DAILY 06/03/18 06/03/18 History Allergies Allergy/AdvReac Type Severity Reaction Status Date / Time hydromorphone [From Dilaudid] Allergy Hallucinati Verified 06/03/18 13:06 ons garlic AdvReac Diarrhea Verified 06/03/18 13:06 prednisone AdvReac Increased Verified 06/03/18 13:06 Blood Pressure sour cream AdvReac Diarrhea Uncoded 06/02/18 22:03 Physical Exam Vitals: Vital Signs Temp Pulse Pulse Resp BP BP Pulse Ox 06/05/18 06:00 98.0 F 80 80 16 155/86 155/86 95 06/05/18 00:00 98.0 F 84 20 147/83 95 06/04/18 23:50 98 F 84 20 147/83 95 06/04/18 18:41 97.1 F L 75 18 130/75 97 06/04/18 15:00 97.1 F L 75 18 130/75 97 06/04/18 12:15 97.5 F L 76 18 130/69 95 Intake and Output 06/04/18 06/05/18 06/05/18 22:59 06:59 14:59 Intake Total 100 100 Balance 100 100 Intake: Oral 100 100 Other: Voiding Method CAPD # Voids 0 Weight 67 kg 64.5 kg General appearance: The patient is alert, oriented, in no acute distress. HET: Head is normocephalic and atraumatic. Pupils are equal and reactive. Oropharynx is clear without lesions. Neck: Supple without lymphadenopathy. Trachea midline. Heart: S1 S2. Regular rate and rhythm. Lungs: No crackles or wheezes are heard. Abdomen: Soft, nontender, nondistended with bowel sounds. Peritoneal catheter without erythema or drainage. No peritoneal signs. No palpable organomegaly or masses. Extremities: Normal skin color and turgor. No cyanosis, rash, ulceration, clubbing, or edema. Radial and pedal pulses are 2/4 bilaterally. Neurological: No focal deficits. Strength and sensation are grossly intact. Results CBC & Chem 7: 06/04/18 09:20 06/04/18 09:20 Labs: Abnormal Lab Results - Last 24 Hours (Table) 06/04/18 06/04/18 06/04/18 Range/Units 09:20 09:20 12:10 WBC 11.7 H (3.8-10.6) k/uL RBC 3.75 L (4.30-5.90) m/uL Hgb 11.3 L (13.0-17.5) gm/dL Hct 34.7 L (39.0-53.0) % RDW 16.0 H (11.5-15.5) % Neutrophils # (Manual) 7.80 H (1.3-7.7) k/uL Monocytes # (Manual) 1.05 H (0-1.0) k/uL Eosinophils # (Manual) 0.82 H (0-0.7) k/uL Metamyelocytes # (Man) 0.12 H (0) k/uL Myelocytes # (Manual) 0.35 H (0) k/uL Sodium 135 L (137-145) mmol/L Chloride 91 L (98-107) mmol/L BUN 69 H (9-20) mg/dL Creatinine 11.47 H* (0.66-1.25) mg/dL Glucose 101 H (74-99) mg/dL POC Glucose (mg/dL) 109 H (75-99) mg/dL Ionized Calcium Jared (4.5-5.3) mg/dL 06/04/18 06/04/18 06/05/18 Range/Units 17:18 22:02 07:23 WBC (3.8-10.6) k/uL RBC (4.30-5.90) m/uL Hgb (13.0-17.5) gm/dL Hct (39.0-53.0) % RDW (11.5-15.5) % Neutrophils # (Manual) (1.3-7.7) k/uL Monocytes # (Manual) (0-1.0) k/uL Eosinophils # (Manual) (0-0.7) k/uL Metamyelocytes # (Man) (0) k/uL Myelocytes # (Manual) (0) k/uL Sodium (137-145) mmol/L Chloride (98-107) mmol/L BUN (9-20) mg/dL Creatinine (0.66-1.25) mg/dL Glucose (74-99) mg/dL POC Glucose (mg/dL) 110 H 117 H (75-99) mg/dL Ionized Calcium Jared 4.4 L (4.5-5.3) mg/dL Microbiology - Last 24 Hours (Table) 06/02/18 22:23 Blood Culture - Preliminary Blood No Growth after 48 hours Assessment and Plan (1) Rectal bleeding Narrative/Plan: Suspect colonic diverticular in origin however other pathology cannot be excluded. Current Visit: Yes Status: Acute Code(s): K62.5 - HEMORRHAGE OF ANUS AND RECTUM SNOMED Code(s): 92933422 (2) Fatigue Current Visit: Yes Status: Acute Code(s): R53.83 - OTHER FATIGUE SNOMED Code(s): 86320525 (3) End stage renal disease Current Visit: Yes Status: Acute Code(s): N18.6 - END STAGE RENAL DISEASE SNOMED Code(s): 52036696 (4) Dependence on peritoneal dialysis Current Visit: Yes Status: Acute Code(s): Z99.2 - DEPENDENCE ON RENAL DIALYSIS SNOMED Code(s): 452204402 (5) Colon, diverticulosis Current Visit: Yes Status: Acute Code(s): K57.30 - DVRTCLOS OF LG INT W/O PERFORATION OR ABSCESS W/O BLEEDING SNOMED Code(s): 002885702 (6) CAD (coronary artery disease) Current Visit: Yes Status: Acute Code(s): I25.10 - ATHSCL HEART DISEASE OF [place] CORONARY ARTERY W/O ANG PCTRS SNOMED Code(s): 33561391 (7) Chronic back pain Current Visit: Yes Status: Acute Code(s): M54.9 - DORSALGIA, UNSPECIFIED; G89.29 - OTHER CHRONIC PAIN SNOMED Code(s): 565349748 Plan: 1. Inpatient endoscopy was discussed however patient would like to proceed with endoscopy as an outpatient. Presently he has passing nonbloody bowel movements without abdominal pain. Advised patient to follow up in the [place] office next week with Dr. Huerta 06/13 for reevaluation and discussion of outpatient endoscopy. Patient is agreeable with this plan a care. If patient has recurrent bleeding inpatient endoscopy will be advised. Discharge per medicine. 2. Stool softeners avoid constipation. Senokot-S 2 tabs BID. Thank you for this kind referral and the opportunity to participate in the care of your patient. This consultation was discussed with Dr. Sanchez. The impression and plan of care have been directed as dictated.
[2018-06-05] MEDS: SENNOSIDES-DOCUSATE SODIUM 1 EACH TAB PO SCH ×2 (11:43→22:13)
[2018-06-05] MEDS: FOLIC ACID-VIT B COMPLEX-VIT C 1 CAP PO SCH (11:44)
[2018-06-05 11:55] LABS: HCT 31.3 % (39.0-53.0); HGB 10.3 gm/dL (13.0-17.5); MCH 30.7 pg (25.0-35.0); MCHC 32.9 g/dL (31.0-37.0); MCV 93.2 fL (80.0-100.0); Mean Platelet Volume 8.1; Platelet Count 300 k/uL (150-450); RBC 3.36 m/uL (4.30-5.90); RDW 15.9 % (11.5-15.5); WBC 7.7 k/uL (3.8-10.6)
--- NOTE | 2018-06-05 12:00 | P.PN ---
Subjective Mr. Quintanilla is seen and examined resting comfortably in bed in no acute distress. HEENT denies symptoms of chest pain, shortness of breath, dizziness, palpitations or diaphoresis. Echocardiogram obtained reveals mildly impaired left ventricular systolic function with ejection fraction 45-50%. This is consistent with previous echocardiogram obtained in the office. Cardiac enzymes negative 3. Blood pressure 155/86 heart rate 80 afebrile maintaining oxygen saturation on room air. Objective - Vital Signs Vital signs: Vital Signs Temp 98.0 F 06/05/18 06:00 Pulse 80 06/05/18 06:00 Resp 16 06/05/18 06:00 BP 155/86 06/05/18 06:00 Pulse Ox 95 06/05/18 06:00 Intake & Output 06/04/18 06/05/18 06/05/18 18:59 06:59 18:59 Intake Total 200 Balance 200 Weight 67 kg 64.5 kg 64.5 kg Intake: Oral 200 Other: Voiding Method CAPD CAPD # Voids 2 0 # Bowel Movements 1 - Exam GENERAL: Well-appearing, well-nourished and in no acute distress. NECK: Supple without JVD or thyromegaly. LUNGS: Breath sounds clear to auscultation bilaterally. Respiration equal and unlabored. No wheezes, rales or rhonchi. HEART: Regular rate and rhythm without murmurs, rubs or gallops. S1 and S2 heard. EXTREMITIES: Normal range of motion, no edema. No clubbing or cyanosis. Peripheral pulses intact. - Labs CBC & Chem 7: 06/04/18 09:20 06/04/18 09:20 Labs: Abnormal Lab Results - Last 24 Hours (Table) 06/04/18 06/04/18 06/04/18 Range/Units 12:10 17:18 22:02 POC Glucose (mg/dL) 109 H 110 H 117 H (75-99) mg/dL Ionized Calcium Jared (4.5-5.3) mg/dL 06/05/18 Range/Units 07:23 POC Glucose (mg/dL) (75-99) mg/dL Ionized Calcium Jared 4.4 L (4.5-5.3) mg/dL Microbiology - Last 24 Hours (Table) 06/02/18 22:23 Blood Culture - Preliminary Blood No Growth after 48 hours Assessment and Plan Assessment: ASSESSMENT Weakness and fatigue End-stage renal disease on peritoneal dialysis Coronary artery disease status post angioplasty Dyslipidemia PLAN An acute coronary event has been ruled out. Echocardiogram has been obtained and reviewed and reveals no evidence of acute changes. Stable from a cardiac perspective. Ongoing medical management. Follow-up with Dr. Huerta upon discharge. Nurse Practitioner note has been reviewed, I agree with a documented findings and plan of care. Patient was seen and examined.
[2018-06-05 12:02] LABS: Calcium 8.5 mg/dL (8.4-10.2); Potassium 4.7 mmol/L (3.5-5.1)
[2018-06-05 12:18] LABS: Band Neutrophils % 1 %; Basophils # (M) 0.08 k/uL (0-0.2); Eosinophils # (M) 1.23 k/uL (0-0.7); Lymphocytes # (M) 1.16 k/uL (1.0-4.8); Metamyelocytes # (M) 0.08 k/uL (0); Metamyelocytes % 1 %; Monocytes # (M) 1.08 k/uL (0-1.0); Myelocytes # (M) 0.31 k/uL (0); Myelocytes % 4 %; Neutrophils % (M) 51 %; Nucleated Red Blood Cells 0 /100 WBC (0-0); Total Cells Counted 200
[2018-06-05 12:55] LABS: Glucose,Whole Blood 126 mg/dL (75-99)
[2018-06-05 15:19] LABS: Appearance,BF Clear; Color,BF Colorless; Nucleated Cells, Body Fluid 0 /uL; RBC, Body Fluid 0 /uL
[2018-06-05 17:01] LABS: Glucose,Whole Blood 122 mg/dL (75-99)
[2018-06-05] MEDS: ATORVASTATIN 40 MG TAB PO SCH (22:11)
[2018-06-05 22:17] LABS: Glucose,Whole Blood 126 mg/dL (75-99)
--- NOTE | 2018-06-05 23:06 | PN ---
PROGRESS NOTE Patient is seen for followup for end-stage renal disease. He was admitted to the hospital with weakness. He also had a positive stool for occult blood and was evaluated by GI. Hemoglobin has been fairly stable. The patient was being considered for colonoscopy down the road as outpatient. His creatinine was elevated at 11.3; therefore, his PD fluid exchanges were increased to q.4 hours this morning. EXAMINATION: Blood pressure was 155/86, heart rate of 80 per minute. Patient is afebrile. HEART: S1, S2. LUNGS: Bilateral breath sounds are heard. Abdomen is soft, nontender. Lower extremities show no evidence of edema. SCALE CLERK is grossly intact. LABS: Show sodium 132, potassium 4.7. Hemoglobin 10.3. ASSESSMENT: 1. End-stage renal disease, on hemodialysis on a Monday, , Monday schedule. 2. Gastrointestinal bleed with stool for occult blood being positive. Plan is for possible colonoscopy down the road. 3. Anemia of chronic disease. 4. Chronic kidney disease mineral bone disorder. Continue current phosphate binders. Patient was on calcitriol. His PTH had dropped significantly as outpatient and therefore the calcitriol is currently on hold. PLAN: Maintain frequent peritoneal dialysis exchanges. Follow up with GI as outpatient. MMODL / IJN: [id number] /
[2018-06-06] MEDS: DIALYSIS (PERIT 1.5%) 2,500 ML 37.5 G/2,500 ML BAG INTRAPERIT SCH ×6 (00:49→20:40)
[2018-06-06] MEDS: HYDROcodone/APAP 7.5-325MG 1 EACH TAB PO PRN (05:38)
--- NOTE | 2018-06-06 06:58 | PN ---
PROGRESS NOTE DATE OF SERVICE: June 05, 2018. PRESENTING COMPLAINT: Tired. INTERVAL HISTORY: This patient presented weak and tired. No further bleeding. Getting peritoneal dialysis. Did tolerate some diet. Abdomen feels a little bit bloated. REVIEW OF SYSTEMS: Done for constitutional, cardiovascular, GI, pulmonary; relevant findings as above. CURRENT MEDICATIONS: Reviewed. PHYSICAL EXAMINATION: VITAL SIGNS: Temperature 97.3, pulse 80, respiratory 18, blood pressure 169/73, pulse ox 94%. GENERAL APPEARANCE: Sitting on bed, awake, tired. EYES: Pupils equal. Conjunctivae normal. HEENT: External appearance of nose and ears normal. Oral cavity normal. NECK: JVD not raised. Mass not palpable. RESPIRATORY: Effort normal. LUNGS: Clear. CARDIOVASCULAR: 1st and 2nd sounds normal. No edema. ABDOMEN: Soft, nontender. Liver and spleen not palpable. PSYCHIATRY: Alert and oriented x3. Mood and affect normal. INVESTIGATIONS: Hemoglobin 10.3, potassium 4.7. Accu-Cheks are noted. ASSESSMENT: 1. Acute gastrointestinal bleed. The patient noted blood clots for now over 3-4 days intermittent. 2. Coronary artery disease with prior history of stent. 3. Hyperlipidemia. 4. Essential hypertension. 5. Chronic low back pain. 6. 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 7. Normocytic anemia secondary to chronic kidney disease. 8. Hyperphosphatemia secondary to mineral bone disease and renal failure. 9. Hypercalcemia from Dr. Wilkinson's office. PLAN: Discussed with Dr. Wilkinson, from her standpoint, patient is stable. Did speak to the patient. He will like to get endoscopy while he is still hear. Did tell the nurse to get hold of Gastroenterology service and schedule colonoscopy for tomorrow. MMODL / IJN: [id number] /
[2018-06-06 07:46] LABS: Glucose,Whole Blood 89 mg/dL (75-99)
[2018-06-06] MEDS: SEVELAMER 800 MG TAB PO SCH ×3 (08:39→17:53)
[2018-06-06] MEDS: CALCIUM ACETATE 667 MG CAP PO SCH ×3 (08:39→17:53)
[2018-06-06] MEDS: ASPIRIN 81 MG PO SCH (08:40)
[2018-06-06] MEDS: amLODIPine 2.5 MG TAB PO SCH (08:40)
[2018-06-06] MEDS: ATENOLOL 12.5 MG TAB PO SCH (08:40)
[2018-06-06] MEDS: FUROSEMIDE 80 MG TAB PO SCH (08:40)
[2018-06-06] MEDS: HEPARIN SODIUM,PORCINE 5,000 UNIT/ML 1 ML VIAL SQ SCH ×2 (08:40→21:11)
[2018-06-06] MEDS: PANTOPRAZOLE 40 MG TABLET PO SCH (08:40)
[2018-06-06] MEDS: GEMFIBROZIL 600 MG TAB PO SCH (08:40)
[2018-06-06] MEDS: SENNOSIDES-DOCUSATE SODIUM 1 EACH TAB PO SCH ×2 (08:41→21:11)
[2018-06-06] MEDS: TAMSULOSIN 0.4 MG CAP.ER.24H PO SCH (08:41)
[2018-06-06] MEDS: MAGNEBIND PO SCH ×3 (08:50→21:12)
--- NOTE | 2018-06-06 09:44 | P.PN ---
Subjective Progress Note Date: 06/06/18 Principal diagnosis: Rectal bleeding No bleeding. Reports constipation. Patient decided to proceed with inpatient endoscopy. Objective - Vital Signs Vital signs: Vital Signs Temp 97.6 F 06/06/18 08:21 Pulse 85 06/06/18 08:21 Resp 18 06/06/18 08:21 BP 146/89 06/06/18 08:21 Pulse Ox 95 06/06/18 08:21 Intake & Output 06/05/18 06/06/18 06/06/18 18:59 06:59 18:59 Intake Total 120 100 Output Total 10 Balance 110 100 Weight 64.5 kg 64.5 kg 64.5 kg Intake: Oral 120 100 Output: Urine 10 Other: Voiding Method CAPD CAPD CAPD # Voids 0 1 - Exam General appearance: The patient is alert, oriented, in no acute distress. HET: Head is normocephalic and atraumatic. Pupils are equal and reactive. Oropharynx is clear without lesions. Neck: Supple without lymphadenopathy. Trachea midline. Heart: S1 S2. Regular rate and rhythm. Lungs: No crackles or wheezes are heard. Abdomen: Soft, nontender, nondistended with bowel sounds. Dialysis catheter without erythema or drainage. No peritoneal signs. No palpable organomegaly or masses. Extremities: Normal skin color and turgor. No cyanosis, rash, ulceration, clubbing, or edema. Radial and pedal pulses are 2/4 bilaterally. Neurological: No focal deficits. Strength and sensation are grossly intact. - Labs CBC & Chem 7: 06/05/18 07:23 06/05/18 07:23 Labs: Abnormal Lab Results - Last 24 Hours (Table) 06/05/18 06/05/18 06/05/18 Range/Units 07:23 07:23 12:49 RBC 3.36 L (4.30-5.90) m/uL Hgb 10.3 L (13.0-17.5) gm/dL Hct 31.3 L (39.0-53.0) % RDW 15.9 H (11.5-15.5) % Monocytes # (Manual) 1.08 H (0-1.0) k/uL Eosinophils # (Manual) 1.23 H (0-0.7) k/uL Metamyelocytes # (Man) 0.08 H (0) k/uL Myelocytes # (Manual) 0.31 H (0) k/uL Sodium 132 L (137-145) mmol/L Chloride 91 L (98-107) mmol/L BUN 70 H (9-20) mg/dL Creatinine 11.30 H* (0.66-1.25) mg/dL POC Glucose (mg/dL) 126 H (75-99) mg/dL 06/05/18 06/05/18 Range/Units 16:59 21:57 RBC (4.30-5.90) m/uL Hgb (13.0-17.5) gm/dL Hct (39.0-53.0) % RDW (11.5-15.5) % Monocytes # (Manual) (0-1.0) k/uL Eosinophils # (Manual) (0-0.7) k/uL Metamyelocytes # (Man) (0) k/uL Myelocytes # (Manual) (0) k/uL Sodium (137-145) mmol/L Chloride (98-107) mmol/L BUN (9-20) mg/dL Creatinine (0.66-1.25) mg/dL POC Glucose (mg/dL) 122 H 126 H (75-99) mg/dL Microbiology - Last 24 Hours (Table) 06/02/18 22:23 Blood Culture - Preliminary Blood No Growth after 72 hours Assessment and Plan (1) Rectal bleeding Narrative/Plan: Suspect colonic diverticular in origin however other pathology cannot be excluded. Current Visit: Yes Status: Acute Code(s): K62.5 - HEMORRHAGE OF ANUS AND RECTUM SNOMED Code(s): 72114217 (2) Fatigue Current Visit: Yes Status: Acute Code(s): R53.83 - OTHER FATIGUE SNOMED Code(s): 90255313 (3) End stage renal disease Current Visit: Yes Status: Acute Code(s): N18.6 - END STAGE RENAL DISEASE SNOMED Code(s): 44973258 (4) Dependence on peritoneal dialysis Current Visit: Yes Status: Acute Code(s): Z99.2 - DEPENDENCE ON RENAL DIALYSIS SNOMED Code(s): 429168930 (5) Colon, diverticulosis Current Visit: Yes Status: Acute Code(s): K57.30 - DVRTCLOS OF LG INT W/O PERFORATION OR ABSCESS W/O BLEEDING SNOMED Code(s): 274357411 (6) CAD (coronary artery disease) Current Visit: Yes Status: Acute Code(s): I25.10 - ATHSCL HEART DISEASE OF [place] CORONARY ARTERY W/O ANG PCTRS SNOMED Code(s): 23752070 (7) Chronic back pain Current Visit: Yes Status: Acute Code(s): M54.9 - DORSALGIA, UNSPECIFIED; G89.29 - OTHER CHRONIC PAIN SNOMED Code(s): 227710800 Plan: 1. Clear liquid diet. Nothing by mouth after midnight. 2. GoLYTELY started 1500 today. 3. CBC monitoring. Continue GI prophylaxis. The data warehouse architect has discussed the risks, benefits and alternative therapies for the above-mentioned procedure and for both sedation/analgesia as well as necessary blood product administration, if indicated, as they pertain to this patient. The patient has indicated understanding and acceptance of the risks and procedures discussed. Assessment and plan a care discussed with Dr. Sanchez
[2018-06-06] MEDS: FOLIC ACID-VIT B COMPLEX-VIT C 1 CAP PO SCH (12:16)
[2018-06-06 12:18] LABS: HCT 29.8 % (39.0-53.0); HGB 10.1 gm/dL (13.0-17.5); MCH 31.2 pg (25.0-35.0); MCV 91.7 fL (80.0-100.0); Mean Platelet Volume 6.7; Platelet Count 268 k/uL (150-450); RBC 3.25 m/uL (4.30-5.90); RDW 15.8 % (11.5-15.5); WBC 8.2 k/uL (3.8-10.6)
[2018-06-06 12:29] LABS: Calcium 8.4 mg/dL (8.4-10.2); Potassium 4.7 mmol/L (3.5-5.1)
[2018-06-06 12:52] LABS: Glucose,Whole Blood 104 mg/dL (75-99)
[2018-06-06 13:01] LABS: Band Neutrophils % 1 %; Eosinophils # (M) 0.66 k/uL (0-0.7); Lymphocytes # (M) 1.07 k/uL (1.0-4.8); Metamyelocytes # (M) 0.16 k/uL (0); Metamyelocytes % 2 %; Monocytes # (M) 1.15 k/uL (0-1.0); Myelocytes # (M) 0.25 k/uL (0); Myelocytes % 3 %; Neutrophils % (M) 61 %; Nucleated Red Blood Cells 0 /100 WBC (0-0); Promyelocytes # (M) 0.08 k/uL (0); Promyelocytes % 1 %; Total Cells Counted 200
[2018-06-06 13:02] LABS: Anisocytosis (M) Present; Poikilocytosis (M) Present; Toxic Granulation Present
[2018-06-06] MEDS ORDERED: PEG 3350-NA SULF,BICARB,CL/KCL 4,000 ML BOTTLE PO ONE (15:00)
[2018-06-06 16:57] LABS: Glucose,Whole Blood 94 mg/dL (75-99)
[2018-06-06] MEDS: ATORVASTATIN 40 MG TAB PO SCH (21:12)
[2018-06-06 21:25] LABS: Glucose,Whole Blood 96 mg/dL (75-99)
--- NOTE | 2018-06-06 23:22 | PN ---
PROGRESS NOTE DATE OF SERVICE: 06/06/2018 PRESENTING COMPLAINT: Tired. INTERVAL HISTORY: This patient presented feeling weak and tired. He has been having GI bleed. Pending endoscopy. Getting peritoneal dialysis. No new issues. Family is present. REVIEW OF SYSTEMS: Done for constitutional, cardiovascular, GI, pulmonary; relevant findings as above. Did have small amount of bleeding earlier. CURRENT MEDICATIONS: Reviewed. PHYSICAL EXAMINATION: Temperature 97.4, pulse 78, respiration 18, blood pressure 141/73, pulse ox 99% on room air. GENERAL APPEARANCE: Lying in bed, awake. EYES: Pupils equal. Conjunctivae normal. HEENT: External appearance of nose and ears normal. Oral cavity normal. NECK: JVD not raised. Mass not palpable. RESPIRATORY: Effort normal. Lungs are clear. CARDIOVASCULAR: First and second sounds normal. No edema. ABDOMEN: Distended, soft. Liver and spleen not palpable. PSYCHIATRY: Alert and oriented x3. Mood and affect normal. INVESTIGATIONS: White count 8.2, hemoglobin 10.1, potassium 4.7. BUN 65, creatinine 11. ASSESSMENT: 1. Acute gastrointestinal bleed for the last 3 to 4 days, pending endoscopy. 2. Coronary artery disease with prior history of stent. 3. Hyperlipidemia. 4. Essential hypertension. 5. Chronic low back pain. 6. 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 7. Normocytic anemia secondary to chronic kidney disease. 8. Hyperphosphatemia secondary to mineral bone disease and renal failure. 9. Hypercalcemia from Dr. Wilkinson's office. PLAN: Continue current medication and treatment plan. Awaiting endoscopy. Care was discussed with the patient. MMODL / IJN: [id number] /
[2018-06-07] MEDS: HYDROcodone/APAP 7.5-325MG 1 EACH TAB PO PRN ×3 (00:13→13:45)
[2018-06-07] MEDS: DIALYSIS (PERIT 1.5%) 2,500 ML 37.5 G/2,500 ML BAG INTRAPERIT SCH ×5 (00:55→16:48)
[2018-06-07 07:24] LABS: Glucose,Whole Blood 93 mg/dL (75-99)
[2018-06-07] MEDS: GEMFIBROZIL 600 MG TAB PO SCH (07:50)
[2018-06-07] MEDS: SEVELAMER 800 MG TAB PO SCH ×3 (07:50→17:38)
[2018-06-07] MEDS: CALCIUM ACETATE 667 MG CAP PO SCH ×3 (07:50→17:37)
[2018-06-07] MEDS: PANTOPRAZOLE 40 MG TABLET PO SCH (07:52)
[2018-06-07] MEDS: amLODIPine 2.5 MG TAB PO SCH (07:52)
[2018-06-07] MEDS: ASPIRIN 81 MG PO SCH (07:53)
[2018-06-07] MEDS: ATENOLOL 12.5 MG TAB PO SCH (07:53)
[2018-06-07] MEDS: FUROSEMIDE 80 MG TAB PO SCH (07:53)
[2018-06-07] MEDS: HEPARIN SODIUM,PORCINE 5,000 UNIT/ML 1 ML VIAL SQ SCH (07:53)
[2018-06-07] MEDS: TAMSULOSIN 0.4 MG CAP.ER.24H PO SCH (07:54)
[2018-06-07] MEDS: MAGNEBIND PO SCH ×2 (07:54→17:37)
[2018-06-07] MEDS: SENNOSIDES-DOCUSATE SODIUM 1 EACH TAB PO SCH (07:54)
[2018-06-07 11:12] LABS: HCT 32.6 % (39.0-53.0); HGB 11.1 gm/dL (13.0-17.5); MCH 30.9 pg (25.0-35.0); MCHC 34.1 g/dL (31.0-37.0); MCV 90.5 fL (80.0-100.0); Platelet Count 313 k/uL (150-450); RDW 15.5 % (11.5-15.5); WBC 10.4 k/uL (3.8-10.6)
[2018-06-07 11:26] LABS: Calcium 8.5 mg/dL (8.4-10.2); Potassium 4.4 mmol/L (3.5-5.1)
[2018-06-07 12:17] LABS: Glucose,Whole Blood 91 mg/dL (75-99)
[2018-06-07] MEDS: FOLIC ACID-VIT B COMPLEX-VIT C 1 CAP PO SCH (12:18)
[2018-06-07] MEDS ORDERED: PROPOFOL 10 MG/ML 20 ML VIAL IV ONE (15:25)
[2018-06-07] MEDS ORDERED: SODIUM CHLORIDE 0.9% 500 ML IV ONE (15:35)
--- NOTE | 2018-06-07 16:09 | P.PCN ---
Date of Procedure: 06/07/18 Procedure(s) Performed: Procedures: 1. Esophagogastroduodenoscopy. 2. Total colonoscopy. Preoperative diagnosis: Anemia and GI bleeding. Postoperative diagnosis: 1. Very small sliding hiatal hernia with no obvious esophagitis or complicated reflux disease. 2. No obvious abnormalities in the stomach and duodenum. 3. Sigmoid diverticulosis with no evidence of acute diverticulitis or strictures. 4. No polyps, tumors or evidence of colitis or active bleeding at the time of this exam. Preparation: GoLYTELY prep. Sedation: Was provided by anesthesia. Brief clinical history: The patient is a 72-year-old male with a past medical history of end-stage renal disease on peritoneal dialysis, chronic back pain, CAD prior stenting, admitted with multiple complaints of fatigue, weakness and "not feeling well". Patient states that for about a week prior to admission he was having increased loose bowel movements as well as nausea, vomiting and he thought he was dehydrated. He did notice some blood tinged bowel movements at that time. Presently he is passing nonbloody bowel movements reports slight constipation. Last colonoscopy was in September 2013 evidence of scattered sigmoid diverticulosis. No history of peptic ulcer disease. Normal EGD 2016 [facility] for evaluation of iron deficiency anemia. Other details are summarized in the history and physical and dictated consultations and progress notes. This evaluation is to assess for a source of GI bleeding and anemia. Procedure: With the patient on his left lateral decubitus position and after informed consent and adequate sedation, I passed the Olympus-GIF 160 video upper endoscope through the cricopharyngeus down the esophagus. GE junction was around 40-41 cm from the incisors and there was a very small sliding hiatal hernia. The esophagus did not show any obvious esophagitis or complicated reflux disease. The endoscope was then passed into the stomach which was insufflated with air and inspected in detail including the retroflex view in the cardia. No obvious abnormalities were noted in the stomach. Pyloric channel, duodenal bulb, post bulbar area and descending duodenum appeared within normal limits. No biopsies were indicated then the endoscope was withdrawn and I proceeded with the colonoscopy. Perianal area did not show any fissures or fistulas. There were no masses felt on digital rectal examination. The Olympus CFQ 160L video colonoscope was then inserted in the rectum in the usual fashion and advanced to the cecum. There were several diverticular orifices seen scattered in the sigmoid but I saw no evidence of acute diverticulitis or strictures. No polyps or tumors were seen or any angiodysplasia or spontaneous bleeding. I retroflexed the endoscope in the rectum before the endoscope was withdrawn. Low-grade internal hemorrhoids were noted but there was no bleeding. The patient tolerated the procedure well. Plan: The patient was reassured. Will allow diet as tolerated. Further plans based on his course. I will discuss with you and follow with you with interest.
[2018-06-07 16:43] VITALS: BP 141/78; PULSE 74; RESP 18; TEMP 98.8
--- NOTE | 2018-06-07 18:29 | PN ---
PROGRESS NOTE Patient is seen for followup for end-stage renal disease. He is maintained on peritoneal dialysis q.4 hours. The patient is scheduled for colonoscopy today. He denies any significant complaints except for loose bowel movements secondary to prep. PHYSICAL EXAMINATION: Blood pressure this morning was 141/78, heart rate 74 per minute. Patient is afebrile. Examination of the heart: S1, S2. Examination of the lungs: Bilateral breath sounds are heard. Abdomen is soft, nontender. Examination lower extremities shows no evidence of edema. SCREENING UNIT REGISTERED NURSE exam is grossly intact. LAB: Show sodium 133, potassium 4.4, BUN 58, serum creatinine 10.2, hemoglobin 11.1 g/dL. ASSESSMENT: 1. End-stage renal disease, on hemodialysis on peritoneal dialysis. Currently receiving q.4 hours exchanges secondary to elevated creatinine, which has improved. 2. GI bleed with positive stool for occult blood scheduled for colonoscopy today. There has not been any significant drop in his hemoglobin. No active bleeding has been noted during the hospitalization. 3. CKD mineral bone disorder, currently off of Rocaltrol secondary to elevated calcium and significantly decreased PTH as outpatient. PLAN: Continue with current exchanges. Patient should go empty for colonoscopy. MMODL / IJN: [id number] /
--- NOTE | 2018-06-07 23:41 | DS ---
DISCHARGE SUMMARY DATE OF ADMISSION: 06/03/2018 DATE OF DISCHARGE: 06/07/2018 FINAL DIAGNOSES: 1. Acute gastrointestinal bleed felt to be colonic diverticulosis. 2. Coronary artery disease prior history of stent. 3. Hyperlipidemia. 4. Essential hypertension. 5. Chronic low back pain from arthritis. 6. 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 7. Normocytic anemia secondary to chronic kidney disease and gastrointestinal bleed. 8. Hyperphosphatemia secondary to renal bone disease and renal failure. 9. Hypercalcemia. HOSPITAL COURSE: This patient presented weak, tired, run down, the patient having blood in his stools for the last 3-4 days. The patient did undergo colonoscopy earlier today, found to have diverticulosis. The patient's peritoneal dialysis was also adjusted and did come back from Dr. Wilkinson office the calcium was elevated, but ionized calcium done here actually was a bit on the lower side. Hence a Calcitriol has been resumed. Per Cardiology. No further intervention. EXAMINATION: Afebrile, pulse 74, respirations 18, blood pressure 141/78, pulse ox 97% on room air. The patient's potassium 4.7, BUN 65, creatinine 11.0. ABDOMEN: Distended, soft. LUNGS: Fair air entry. CONSULTATIONS: Dr. Sanchez from GI, Dr. Wilkinson from nephrology, Dr. Stephens from cardiology. Additionally, patient did have a 2D echocardiogram, showed an EF of 45%-50% and some wall motion abnormality. DISCHARGE MEDICATIONS: 1. Aspirin 81 mg a day. 2. Tenormin 12.5 p.o. daily. 3. Lipitor 40 mg daily. 4. Lopid 600 mg p.o. daily. 5. Neurontin 100 mg t.i.d. 6. Midodrine 5 mg p.o. daily p.r.n. 7. MiraLAX 17 g p.o. daily p.r.n. 8. Zanaflex 1 tablet p.o. daily. 9. Sodium bicarb 60 mg p.o. daily. 10.Calcitriol 0.5 mcg Monday, Monday, , Monday. 11.PhosLo 1334 mg p.o. t.i.d. 12.Lasix 80 mg p.o. daily. 13.[facility] 7.5 one tab every 6 hours p.r.n. 14. 300 mg 3 tablets p.o. t.i.d. 15.Protonix 40 mg a day. 16.Norvasc 2.5 mg a day. 17.Ancef 40 mcg subcu every 7 days. 18.Senokot-S 2 tablets p.o. b.i.d. 19.Renvela 1600 mg p.o. t.i.d. with meals. FOLLOWUP: With Dr. Gene Girard on 06/11/2018, Dr. Peggy Huerta on 06/12/2018, Dr. Dominick Huerta in 2 weeks. Renal diet. EXAM: LUNGS: Decreased breath sounds. CARDIOVASCULAR: First and second sounds normal. ABDOMEN: Slightly distended, soft. DISCUSSION AND DISCHARGE PLANNING: More than 35 minutes. MMODL / IJN: [id number] /
== END 2018-06-07 18:20 | disposition home or self-care (01) | DRG 377 ==
LOC: EC 21:57 → 4MS4W 06-03 01:16
PROVIDERS: ADMIT Hospitalist; ATTEND Hospitalist
PROC: 0DJD8ZZ Inspection of Lower Intestinal Tract, Via Natural or Artificial Opening Endoscopic (ICD-10-PCS; principal; 2018-06-07 14:10)
PROC: 0DJ08ZZ Inspection of Upper Intestinal Tract, Via Natural or Artificial Opening Endoscopic (ICD-10-PCS; principal; 2018-06-07 14:10)
DX: K57.31 Diverticulosis of large intestine without perforation or abscess with bleeding (principal); N18.6 End stage renal disease; I12.0 Hypertensive chronic kidney disease with stage 5 chronic kidney disease or end stage renal disease; N17.9 Acute kidney failure, unspecified; D63.1 Anemia in chronic kidney disease; E11.22 Type 2 diabetes mellitus with diabetic chronic kidney disease; E78.5 Hyperlipidemia, unspecified; E83.39 Other disorders of phosphorus metabolism; E83.52 Hypercalcemia; G89.29 Other chronic pain; I25.10 Atherosclerotic heart disease of native coronary artery without angina pectoris; K21.9 Gastro-esophageal reflux disease without esophagitis; K44.9 Diaphragmatic hernia without obstruction or gangrene; K59.00 Constipation, unspecified; K64.8 Other hemorrhoids; M19.90 Unspecified osteoarthritis, unspecified site; M89.9 Disorder of bone, unspecified; Z79.82 Long term (current) use of aspirin; Z79.899 Other long term (current) drug therapy; Z82.49 Family history of ischemic heart disease and other diseases of the circulatory system; Z95.5 Presence of coronary angioplasty implant and graft; Z99.2 Dependence on renal dialysis; Z79.891 Long term (current) use of opiate analgesic; Z88.5 Allergy status to narcotic agent; Z88.8 Allergy status to other drugs, medicaments and biological substances; Z91.018 Allergy to other foods
CPT/HCPCS: 36415; 43235; 45378; 71045; 80048; 80053; 81001; 82272; 82330; 82550; 82553; 83036; 83605; 83735; 83880; 84100; 84443; 84484; 85025; 85027; 85610; 85730; 87040; 89050; 93005; 93306; 96360; 99285

== ENCOUNTER 2018-11-18 17:23 | Inpatient (IN) | payer MEDICARE ==
[2018-11-18] MEDS ORDERED: MORPHINE SULFATE 4 MG/ML SYRINGE IVP PRN (17:51)
[2018-11-18 18:13] LABS: Anisocytosis Slight; Basophils % (A) 0 %; Eosinophils # (A) 0.2 k/uL (0-0.7); Eosinophils % (A) 2 %; HCT 30.7 % (39.0-53.0); Lymphocytes # (A) 0.5 k/uL (1.0-4.8); Lymphocytes % (A) 4 %; MCH 31.6 pg (25.0-35.0); MCHC 32.4 g/dL (31.0-37.0); MCV 97.6 fL (80.0-100.0); Macrocytosis Slight; Mean Platelet Volume 7.3; Monocytes # (A) 0.8 k/uL (0-1.0); Monocytes % (A) 6 %; Neutrophils # (A) 11.1 k/uL (1.3-7.7); Neutrophils % (A) 86 %; Platelet Count 277 k/uL (150-450); RBC 3.15 m/uL (4.30-5.90); RDW 17.4 % (11.5-15.5)
[2018-11-18 18:22] LABS: Albumin 3.4 g/dL (3.5-5.0); Calcium 8.9 mg/dL (8.4-10.2); Potassium 4.2 mmol/L (3.5-5.1); Total Bilirubin 0.5 mg/dL (0.2-1.3)
[2018-11-18 18:25] LABS: INR 0.9 (<1.2); Partial Thromboplastin Time 23.5 sec (22.0-30.0); Prothrombin Time 9.9 sec (9.0-12.0)
--- NOTE | 2018-11-18 18:54 | ED ---
Lower Extremity Injury HPI - General Chief Complaint: Extremity Injury, Lower Stated Complaint: Hip Fracture Source: patient, RN/MD, EMS Limitations: no limitations - History of Present Illness Initial Comments: 72-year-old male past medical history of renal failure on peritoneal dialysis, HTN, CAD, HLD, and DMII presenting as transfer from [facility] for right-sided intertrochanter femur fracture. Patient states that at 12:30 PM this afternoon he went to his mailbox to grab the male with a letter fell to the ground, he states he bent over on forward onto his right knee and side. He denies head injury, loss of consciousness. Pt denies chest pain dizziness or any other symptoms prior to falling, he states he simply lost his balance. Patient was not able to ambulate following the fall, nursing pain in the right hip. Patient denies any neck pain, low back pain, headache visual changes diplopia, left lower extremity pain, pain in the upper extremities. Pt was brought to [facility] for evaluation, where xrays obtained revealed a intertrochanter fracture of the right femur. He was then transported to [facility] for further Orthopedic evaluation. Upon arrival pt right hip externally rotated and shortened. VS within acceptable limits. Remaining ROS (-) , patient denies any recent fever, chills, shortness of breath, chest pain, back pain, abdominal pain, nausea or vomiting, numbness or tingling, dysuria or hematuria, constipation or diarrhea, or any other complaints. - Related Data Home Medications Medication Instructions Recorded Confirmed Aspirin EC [Ecotrin Low Dose] 81 mg PO DAILY 03/06/17 11/18/18 Atenolol [Tenormin] 12.5 mg PO QAM 03/06/17 11/18/18 Atorvastatin [Lipitor] 40 mg PO DAILY 03/06/17 11/18/18 Gemfibrozil [Lopid] 600 mg PO DAILY 03/06/17 11/18/18 Gabapentin [Neurontin] 100 mg PO TID 07/12/17 11/18/18 Midodrine [ProAmatine] 5 mg PO TID 07/12/17 11/18/18 Polyethylene Glycol 3350 [Miralax] 17 gm PO DAILY PRN 07/12/17 11/18/18 Sodium Bicarbonate Tab 650 mg PO BID 07/12/17 11/18/18 HYDROcodone/APAP 7.5-325MG [Chidester 1 tab PO BID 06/03/18 11/18/18 7.5-325] Lanthanum Carbonate 1,000 mg PO TID-W/MEALS 11/18/18 11/18/18 Methocarbamol [Robaxin] 750 mg PO TID PRN 11/18/18 11/18/18 Multivitamins, Thera [Multivitamin 1 tab PO DAILY 11/18/18 11/18/18 (formulary)] Omeprazole [PriLOSEC] 20 mg PO DAILY 11/18/18 11/18/18 Sertraline [Zoloft] 25 mg PO DAILY 11/18/18 11/18/18 Sevelamer [Renvela] 800 mg PO BID 11/18/18 11/18/18 Tamsulosin [Flomax] 0.4 mg PO DAILY 11/18/18 11/18/18 Velphpro 2500mg (500mg Elemental 1 tab PO DAILY 11/18/18 11/18/18 Iron) Tablet Allergies Allergy/AdvReac Type Severity Reaction Status Date / Time hydromorphone [From Dilaudid] Allergy Hallucinati Verified 11/18/18 18:24 ons garlic AdvReac Diarrhea Verified 11/18/18 18:24 prednisone AdvReac Increased Verified 11/18/18 18:24 Blood Pressure sour cream AdvReac Diarrhea Uncoded 11/18/18 17:35 Review of Systems ROS Statement: Those systems with pertinent positive or pertinent negative responses have been documented in the HPI. ROS Other: All systems not noted in ROS Statement are negative. Past Medical History Past Medical History: Coronary Artery Disease (CAD), Diabetes Mellitus, Hyperlipidemia, Hypertension, Renal Disease Additional Past Medical History / Comment(s): PERITONEAL DIALYSIS (CAPD).Hx. cataracts removed bilat 2003 Hx. kidney biopsy 2012 History of Any Multi-Drug Resistant Organisms: None Reported Past Surgical History: Heart Catheterization With Stent Additional Past Surgical History / Comment(s): FIstula left arm. Hx. carotid artery surgery 2005 Past Anesthesia/Blood Transfusion Reactions: No Reported Reaction Date of Last Stent Placement:: 2011 Past Psychological History: No Psychological Hx Reported Smoking Status: Never smoker Past Alcohol Use History: None Reported Past Drug Use History: None Reported - Past Family History Father Additional Family Medical History / Comment(s): Hx. father "brights disease" age 47 Mom CHF at 81 Brother(s) Family Medical History: Deep Vein Thrombosis (DVT) General Exam - General Exam Comments Initial Comments: General: The patient is awake and alert, in no distress, and does not appear acutely ill. Eye: +2 mm pupils are equal, round and reactive to light, extra-ocular movements are intact. No nystagmus. There is normal conjunctiva bilaterally. No signs of icterus. Ears, nose, mouth and throat: There are moist mucous membranes and no oral lesions. Neck: The neck is supple, there is no tenderness or JVD. Cardiovascular: There is a regular rate and rhythm. No murmur, rub or gallop is appreciated. Respiratory: Lungs are clear to auscultation, respirations are non-labored, breath sounds are equal. No wheezes, stridor, rales, or rhonchi. Gastrointestinal: Soft, non-distended, non-tender abdomen without masses or organomegaly noted. There is no rebound or guarding present. Bowel sounds are unremarkable. Musculoskeletal: Patient is unable to range the right hip, full range of motion of the left hip. Patient has externally rotated and shortened right leg. Compartments are soft and compressible. Patient tender to palpation over femur no tenderness to palpation over any or ankle of the right lower extremity. Strength 5/5 of the left LE and UE. Sensation intact both proximal and distal to the injury equal and comparison with unaffected extremity. DP pulses equal bilaterally 2+. Patient has no midline tenderness to palpation of the cervical spine, patient able to fully range the cervical spine without any complaints of pain including rotation, lateral flexion, forward flexion, extension. No pain to palpation of the UE joints. Capillary refill < 2 seconds of LE. Neurological: A&O x 3. CN II-XII intact, There are no obvious motor or sensory deficits. Coordination appears grossly intact. Speech is normal. Skin: Skin is warm and dry and no rashes or lesions are noted. Psychiatric: Cooperative, appropriate mood & affect, normal judgment. Limitations: no limitations Course Vital Signs 11/18/18 11/18/18 17:33 18:05 Temperature 97.0 F L Pulse Rate 70 78 Respiratory 20 15 Rate Blood Pressure 136/70 132/77 O2 Sat by Pulse 93 L 93 L Oximetry Medical Decision Making - Medical Decision Making 72-year-old male intertrochanter right femur fracture. Patient neurovascularly intact. Physical exam revealed a shortened and externally rotated right leg. + 2 dorsalis pedis pulses with full sensation, no pallor. Patient denies any head or neck injury. Patient denies any back pain. I contacted orthopedic surgery, I spoke directly with physician learning support assistant Han cruz covering for attending physician Dr. Girard. He accepted admission with medicine on consult for surgical clearance. I did put nephrology on consult as patient does nightly peritoneal dialysis. Pt labs revealed anemia (mild, and chronic upon chart review), as well as expected Cr and BUN with renal failure. Pt electrolytes within acceptable limits. Pt given morphine for pain mgmt, although he denies pain unless there is movement in the leg. Dr. Feng accepted medicine consult, aware of patient and need for surgical clearance. Dr. Hayward attending provider agreed with impression and plan today. Pt will be admitted NPO to medical surgical floor, with surgery scheduled for tmrw pending surgical clearance. - Lab Data Result diagrams: 11/18/18 17:53 11/18/18 17:53 Lab Results 11/18/18 11/18/18 11/18/18 Range/Units 17:53 17:53 17:53 WBC 13.0 H (3.8-10.6) k/uL RBC 3.15 L (4.30-5.90) m/uL Hgb 10.0 L (13.0-17.5) gm/dL Hct 30.7 L (39.0-53.0) % MCV 97.6 (80.0-100.0) fL MCH 31.6 (25.0-35.0) pg MCHC 32.4 (31.0-37.0) g/dL RDW 17.4 H (11.5-15.5) % Plt Count 277 (150-450) k/uL Neutrophils % 86 % Lymphocytes % 4 % Monocytes % 6 % Eosinophils % 2 % Basophils % 0 % Neutrophils # 11.1 H (1.3-7.7) k/uL Lymphocytes # 0.5 L (1.0-4.8) k/uL Monocytes # 0.8 (0-1.0) k/uL Eosinophils # 0.2 (0-0.7) k/uL Basophils # 0.0 (0-0.2) k/uL Anisocytosis Slight Macrocytosis Slight PT (9.0-12.0) sec INR (<1.2) APTT (22.0-30.0) sec Sodium 139 (137-145) mmol/L Potassium 4.2 (3.5-5.1) mmol/L Chloride 99 (98-107) mmol/L Carbon Dioxide 25 (22-30) mmol/L Anion Gap 15 mmol/L BUN 75 H (9-20) mg/dL Creatinine 9.78 H* (0.66-1.25) mg/dL Est GFR (CKD-EPI)AfAm 5 (>60 ml/min/1.73 sqM) Est GFR (CKD-EPI)NonAf 5 (>60 ml/min/1.73 sqM) Glucose 98 (74-99) mg/dL Calcium 8.9 (8.4-10.2) mg/dL Total Bilirubin 0.5 (0.2-1.3) mg/dL AST 17 (17-59) U/L ALT 34 (21-72) U/L Alkaline Phosphatase 92 (38-126) U/L Total Protein 6.0 L (6.3-8.2) g/dL Albumin 3.4 L (3.5-5.0) g/dL Blood Type A Negative Blood Type Recheck CABO Indicated Antibody Screen NEGATIVE Spec Expiration Date 11/21/2018 - 235211/18/18 Range/Units 17:53 WBC (3.8-10.6) k/uL RBC (4.30-5.90) m/uL Hgb (13.0-17.5) gm/dL Hct (39.0-53.0) % MCV (80.0-100.0) fL MCH (25.0-35.0) pg MCHC (31.0-37.0) g/dL RDW (11.5-15.5) % Plt Count (150-450) k/uL Neutrophils % % Lymphocytes % % Monocytes % % Eosinophils % % Basophils % % Neutrophils # (1.3-7.7) k/uL Lymphocytes # (1.0-4.8) k/uL Monocytes # (0-1.0) k/uL Eosinophils # (0-0.7) k/uL Basophils # (0-0.2) k/uL Anisocytosis Macrocytosis PT 9.9 (9.0-12.0) sec INR 0.9 (<1.2) APTT 23.5 (22.0-30.0) sec Sodium (137-145) mmol/L Potassium (3.5-5.1) mmol/L Chloride (98-107) mmol/L Carbon Dioxide (22-30) mmol/L Anion Gap mmol/L BUN (9-20) mg/dL Creatinine (0.66-1.25) mg/dL Est GFR (CKD-EPI)AfAm (>60 ml/min/1.73 sqM) Est GFR (CKD-EPI)NonAf (>60 ml/min/1.73 sqM) Glucose (74-99) mg/dL Calcium (8.4-10.2) mg/dL Total Bilirubin (0.2-1.3) mg/dL AST (17-59) U/L ALT (21-72) U/L Alkaline Phosphatase (38-126) U/L Total Protein (6.3-8.2) g/dL Albumin (3.5-5.0) g/dL Blood Type Blood Type Recheck Antibody Screen Spec Expiration Date Disposition Clinical Impression: Fracture, intertrochanteric, right femur Disposition: ADMITTED IP TO THIS [facility] Condition: Stable Is patient prescribed a controlled substance at d/c from ED?: No Referrals: Gene Girard MD [Primary Care Provider] - 1-2 days Time of Disposition: 18:54
[2018-11-18] MEDS ORDERED: METHOCARBAMOL 750 MG TAB PO PRN (21:49)
[2018-11-18] MEDS ORDERED: POLYETHYLENE GLYCOL 3350 17 GM POWD.PACK PO PRN (21:49)
[2018-11-18] MEDS ORDERED: HYDROcodone/APAP 7.5-325MG 1 EACH TAB PO PRN (22:00)
--- NOTE | 2018-11-19 00:25 | CONS ---
CONSULTATION DATE OF CONSULTATION: 11/18/2018 REASON FOR CONSULTATION: Medical management requested by Dr. Girard. CONSULTATION: This is a pleasant 72-year-old patient of Dr. Erik Girard. History is obtained by the nephew and the brother at the bedside as patient is rather sedated after getting IV pain medication. The patient went to take his mail today and coming back he fell, fracturing the right femur. The patient was transferred to [facility] from where he was transferred here. Chronic stable medical conditions include coronary artery disease with stent, close to 8-10 years ago, diabetes, hypertension, hyperlipidemia, and also was on peritoneal dialysis, anxiety. According to the nephew, the patient recently just walked about half an hour, has had not any symptoms of chest pain or shortness of breath. The patient gets peritoneal dialysis twice a day, once in the afternoon and once at night. Because of the fall, patient missed his afternoon dialysis and also did not get his dialysis tonight. Unable to obtain other history at this point because the patient is rather sedated. REVIEW OF SYSTEMS: Cannot be obtained as patient is rather sedated. Otherwise, relevant findings as above. PAST MEDICAL HISTORY: Coronary artery disease with stent, diabetes, hypertension, hyperlipidemia, CAPD, anxiety, mineral bone disease. PAST SURGICAL HISTORY: Cardiac cath with stent, fistula left arm, carotid artery surgery 2005. SOCIAL HISTORY: No smoking. No alcohol. Lives by himself. FAMILY HISTORY: DVT, congestive heart failure. Father had disease. HOME MEDICATIONS: 1. Zoloft 25 mg a day. 2. Robaxin 750 mg p.o. t.i.d. p.r.n. 3. Montrose 7.5 one tab p.o. b.i.d. 4. Sodium bicarb 650 mg b.i.d. 5. MiraLAX 17 grams p.o. daily p.r.n. 6. Midodrine 5 mg p.o. t.i.d. 7. Neurontin 100 mg p.o. t.i.d. 8. Elemental iron 1 tablet p.o. daily. 9. Renvela 800 mg p.o. b.i.d. 10.Prilosec 20 mg p.o. daily. 11.Lanthanum 1000 mg p.o. t.i.d. with meals. 12.Multivitamin 1 tablet p.o. daily. 13.Lipitor 40 mg p.o. daily. 14.Aspirin 81 mg p.o. daily. 15.Flomax 0.4 mg p.o. daily. 16.Lopid 600 mg p.o. daily. 17.Tenormin 12.5 p.o. daily. ALLERGIES: To DILAUDID, GARLIC, PREDNISONE and SOUR CREAM. PHYSICAL EXAMINATION: VITAL SIGNS: Temperature 96.8, pulse 96, respirations 15, blood pressure 120/89, pulse ox 93 percent on room air. GENERAL APPEARANCE: Average build, lying in bed, somnolent. EYES: Pupils equal. Conjunctivae normal. HEENT: External appearance of nose and ears normal. Oral cavity appears dry. NECK: JVD unable to assess. Mass not palpable. RESPIRATORY: Effort normal. LUNGS: Fair air entry. CARDIOVASCULAR: First and second sounds normal. No edema. ABDOMEN: Soft, nontender. Liver and spleen not palpable. PD catheter in place. LYMPHATICS: No lymph nodes palpable in the neck and axilla. PSYCHIATRY: Unable to assess. NEUROLOGICAL: Unable to assess. Patient is sedated. INVESTIGATIONS: White count 13, hemoglobin 10, platelets 277. Potassium 4.2, BUN 75, creatinine 9.78. ASSESSMENT: 1. Right femur intertrochanteric fracture secondary to fall. 2. Coronary artery disease with prior history of stent many years ago with currently no cardiac symptoms as reported. 3. Hyperlipidemia. 4. Hypertension. 5. 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 6. End stage kidney disease on CAPD. 7. Benign prostatic hypertrophy. 8. Anxiety not otherwise specified. 9. Primary osteoarthritis. PLAN: Patient has missed two dialysis today. We will want the surgical intervention to be postponed for at least 24 hours so that we can get the patient back on dialysis schedule. Also, will get an EKG and get a cardiology opinion. The patient may have seen Dr. Huerta. It is unclear when he did last see the patient. From a medical standpoint otherwise, given his comorbidities, patient is a [id number] risk for surgery. Care was discussed with the family members at the bedside. We will re- evaluate tomorrow when patient is more awake. In the meantime, patient's surgery should be at least postponed for 24 hours pending cardiology and Nephrology evaluation. Thank you Dr. Girard. Copy to Dr. Huerta. Copy to Dr. Gene Girard. MMODL / IJN: [id number] /
[2018-11-19] MEDS: SODIUM BICARBONATE TAB 650 MG TAB PO SCH ×3 (01:01→22:45)
[2018-11-19] MEDS: GABAPENTIN 100 MG CAP PO SCH ×5 (01:01→23:37)
[2018-11-19] MEDS ORDERED: LANTHANUM CARBONATE 1000 MG PO SCH (07:30)
[2018-11-19] MEDS: SODIUM CHLORIDE 0.9% 1,000 ML IV SCH ×3 (08:15→22:45)
[2018-11-19] MEDS ORDERED: SEVELAMER 800 MG TAB PO SCH (09:00)
[2018-11-19] MEDS ORDERED: DIALYSIS (PERIT 1.5%) 2,000 ML 30 G/2,000 ML BAG INTRAPERIT ONE (10:00)
[2018-11-19] MEDS: MULTIVITAMINS, THERA 1 EACH TAB PO SCH (10:13)
--- NOTE | 2018-11-19 10:37 | P.HPOR ---
History of Present Illness H&P Date: 11/19/18 Chief Complaint: Right intertrochanteric femur fracture Patient is a 72-year-old male who was transferred from [facility] to [facility] yesterday late afternoon. Patient was out getting is male, he slipped and fell on his right hip. He was unable weight- bear, he was brought to the hospital by emergency room services. It was determined after imaging studies patient had a right intertrochanteric hip fracture. He was transferred to [facility] for orthopedic care. I discussed the case with the emergency room physician staff physical therapy assistant, I also discussed the case in my attending physician Dr. Girard. Patient was admitted under our care with likely plan for surgical intervention. Patient evaluated today at bedside, his family with him. He is resting comfortably, pain with movement involving the right hip. He denies any previous orthopedic surgery involving the bilateral lower extremities. Patient is a history of a compression fracture in the lumbar spine about 2 years ago. Patient has chronic kidney disease, he is a dialysis patient. Currently patient denies any other orthopedic problems. Review of Systems Constitutional: Reports as per HPI Past Medical History Past Medical History: Atrial Fibrillation, Coronary Artery Disease (CAD), Diabetes Mellitus, Dialysis, Hyperlipidemia, Hypertension, Renal Disease, Thyroid Disorder Additional Past Medical History / Comment(s): PERITONEAL DIALYSIS (CAPD).Hx. cataracts removed bilat 2003 Hx. kidney biopsy 2012 History of Any Multi-Drug Resistant Organisms: None Reported Past Surgical History: Heart Catheterization With Stent Additional Past Surgical History / Comment(s): FIstula left arm. Hx. carotid artery surgery 2005; left carotid endarterectomy Past Anesthesia/Blood Transfusion Reactions: No Reported Reaction Date of Last Stent Placement:: 2011 Past Psychological History: No Psychological Hx Reported Smoking Status: Never smoker Past Alcohol Use History: None Reported Past Drug Use History: None Reported - Past Family History Father Additional Family Medical History / Comment(s): Hx. father "brights disease" age 47 Mom CHF at 81 Brother(s) Family Medical History: Deep Vein Thrombosis (DVT) Medications and Allergies Home Medications Medication Instructions Recorded Confirmed Type Aspirin EC [Ecotrin Low Dose] 81 mg PO DAILY 03/06/17 11/18/18 History Atenolol [Tenormin] 12.5 mg PO QAM 03/06/17 11/18/18 History Atorvastatin [Lipitor] 40 mg PO DAILY 03/06/17 11/18/18 History Gemfibrozil [Lopid] 600 mg PO DAILY 03/06/17 11/18/18 History Gabapentin [Neurontin] 100 mg PO TID 07/12/17 11/18/18 History Midodrine [ProAmatine] 5 mg PO TID 07/12/17 11/18/18 History Polyethylene Glycol 3350 [Miralax] 17 gm PO DAILY PRN 07/12/17 11/18/18 History Sodium Bicarbonate Tab 650 mg PO BID 07/12/17 11/18/18 History HYDROcodone/APAP 7.5-325MG [Vincent 1 tab PO BID 06/03/18 11/18/18 History 7.5-325] Lanthanum Carbonate 1,000 mg PO TID-W/MEALS 11/18/18 11/18/18 History Methocarbamol [Robaxin] 750 mg PO TID PRN 11/18/18 11/18/18 History Multivitamins, Thera [Multivitamin 1 tab PO DAILY 11/18/18 11/18/18 History (formulary)] Omeprazole [PriLOSEC] 20 mg PO DAILY 11/18/18 11/18/18 History Sertraline [Zoloft] 25 mg PO DAILY 11/18/18 11/18/18 History Sevelamer [Renvela] 800 mg PO BID 11/18/18 11/18/18 History Tamsulosin [Flomax] 0.4 mg PO DAILY 11/18/18 11/18/18 History Velphpro 2500mg (500mg Elemental 1 tab PO DAILY 11/18/18 11/18/18 History Iron) Tablet Allergies Allergy/AdvReac Type Severity Reaction Status Date / Time hydromorphone [From Dilaudid] Allergy Hallucinati Verified 11/18/18 18:24 ons garlic AdvReac Diarrhea Verified 11/18/18 18:24 prednisone AdvReac Increased Verified 11/18/18 18:24 Blood Pressure sour cream AdvReac Diarrhea Uncoded 11/18/18 17:35 Physical Examination Right lower extremity: No open lesions or sores visualized throughout the lower extremity, obvious shortening and external rotation of the leg is noted compared to contralateral side. Range of motion of the hip reproduces significant pain, he is unable to straight leg raise. No tenderness with palpation surrounding the foot or ankle or knee Calf is soft, no tenderness with palpation. Plantar flexion, dorsiflexion, EHL, FHL are intact. Dorsal pedis pulses 2+ Sensory deficit to light touch noted throughout the bilateral lower extremities from the knee down, patient has history of neuropathy Results - Labs Labs: Abnormal Lab Results - Last 24 Hours (Table) 11/18/18 11/18/18 Range/Units 17:53 17:53 WBC 13.0 H (3.8-10.6) k/uL RBC 3.15 L (4.30-5.90) m/uL Hgb 10.0 L (13.0-17.5) gm/dL Hct 30.7 L (39.0-53.0) % RDW 17.4 H (11.5-15.5) % Neutrophils # 11.1 H (1.3-7.7) k/uL Lymphocytes # 0.5 L (1.0-4.8) k/uL BUN 75 H (9-20) mg/dL Creatinine 9.78 H* (0.66-1.25) mg/dL Total Protein 6.0 L (6.3-8.2) g/dL Albumin 3.4 L (3.5-5.0) g/dL H & H 11/18/18 Range/Units 17:53 Hgb 10.0 L (13.0-17.5) gm/dL Hct 30.7 L (39.0-53.0) % Coagulation 11/18/18 Range/Units 17:53 INR 0.9 (<1.2) Result Diagrams: 11/18/18 17:53 11/18/18 17:53 - Diagnostic results Hip x-ray: report reviewed, image reviewed Assessment and Plan Plan: Imaging: Multiple views were obtained on the CRAZE system. Images demonstrated a right intertrochanteric hip fracture Assessment: 1. Right intertrochanteric femur fracture 2. Status post fall from standing 3. Multiple medical comorbidities Plan: After discussion with attending Dr. Girard, we plan for surgical intervention on 11/19/2018. We will to proceed with an intramedullary nailing of the right femur. Patient was made nothing by mouth last night Patient is being followed by internal medicine, they recommended cardiac and nephrology consultations Nonweightbearing right lower extremity at this time Nothing by mouth diet Pain control GI and DVT prophylaxis, subcu medication after surgery Further recommendations to follow Time with Patient: Less than 30
[2018-11-19] MEDS: PANTOPRAZOLE 40 MG TABLET PO SCH (10:51)
[2018-11-19] MEDS: FENOFIBRATE 160 MG TAB PO SCH (10:51)
[2018-11-19] MEDS: ATORVASTATIN 40 MG TAB PO SCH ×3 (10:51→23:37)
[2018-11-19] MEDS: TAMSULOSIN 0.4 MG CAP.ER.24H PO SCH (10:51)
[2018-11-19] MEDS: ATENOLOL 25 MG TAB PO SCH (10:51)
[2018-11-19] MEDS: MIDODRINE 5 MG TAB PO SCH ×3 (10:51→23:37)
[2018-11-19] MEDS: SERTRALINE 25 MG TAB PO SCH (10:51)
--- NOTE | 2018-11-19 10:59 | P.NPCON ---
History of Present Illness - Reason for Consult end stage renal disease - History of Present Illness Reason for consultation: End-stage renal disease History of present illness: Patient is a 72-year-old male seen in renal consultation for end-stage renal disease. He is maintained on peritoneal dialysis. Patient denies any problems with peritoneal dialysis. Dialysate has been clear. Patient presented to the hospital after he sustained a fall. Patient states he was getting his mail and slipped and fell on his right leg. He was noted to have a right intertrochanteric hip fracture. He scheduled for surgical correction later this afternoon. Hemodynamically stable. Denies any active pain. No vomiting or diarrhea. No fever or chills. Vital signs are stable. General: The patient appeared well nourished and normally developed. HEENT: Head exam is unremarkable. Neck is without jugular venous distension. LUNGS: Lungs are clear to auscultation and percussion. Breath sounds decreased. HEART: Rate and Rhythm are regular. First and second heart sounds normal. No murmurs, rubs or gallops. ABDOMEN: Abdominal exam reveals normal bowel sounds. Non-tender and non- distended. No evidence of peritonitis. EXTREMITITES: No clubbing, cyanosis, or edema. Past Medical History Past Medical History: Atrial Fibrillation, Coronary Artery Disease (CAD), Diabetes Mellitus, Dialysis, Hyperlipidemia, Hypertension, Renal Disease, Thyroid Disorder Additional Past Medical History / Comment(s): PERITONEAL DIALYSIS (CAPD).Hx. cataracts removed bilat 2003 Hx. kidney biopsy 2012 History of Any Multi-Drug Resistant Organisms: None Reported Past Surgical History: Heart Catheterization With Stent Additional Past Surgical History / Comment(s): FIstula left arm. Hx. carotid artery surgery 2005; left carotid endarterectomy Past Anesthesia/Blood Transfusion Reactions: No Reported Reaction Date of Last Stent Placement:: 2011 Past Psychological History: No Psychological Hx Reported Smoking Status: Never smoker Past Alcohol Use History: None Reported Past Drug Use History: None Reported - Past Family History Father Additional Family Medical History / Comment(s): Hx. father "brights disease" age 47 Mom CHF at 81 Brother(s) Family Medical History: Deep Vein Thrombosis (DVT) Medications and Allergies Home Medications Medication Instructions Recorded Confirmed Type Aspirin EC [Ecotrin Low Dose] 81 mg PO DAILY 03/06/17 11/18/18 History Atenolol [Tenormin] 12.5 mg PO QAM 03/06/17 11/18/18 History Atorvastatin [Lipitor] 40 mg PO DAILY 03/06/17 11/18/18 History Gemfibrozil [Lopid] 600 mg PO DAILY 03/06/17 11/18/18 History Gabapentin [Neurontin] 100 mg PO TID 07/12/17 11/18/18 History Midodrine [ProAmatine] 5 mg PO TID 07/12/17 11/18/18 History Polyethylene Glycol 3350 [Miralax] 17 gm PO DAILY PRN 07/12/17 11/18/18 History Sodium Bicarbonate Tab 650 mg PO BID 07/12/17 11/18/18 History HYDROcodone/APAP 7.5-325MG [[place] 1 tab PO BID 06/03/18 11/18/18 History 7.5-325] Lanthanum Carbonate 1,000 mg PO TID-W/MEALS 11/18/18 11/18/18 History Methocarbamol [Robaxin] 750 mg PO TID PRN 11/18/18 11/18/18 History Multivitamins, Thera [Multivitamin 1 tab PO DAILY 11/18/18 11/18/18 History (formulary)] Omeprazole [PriLOSEC] 20 mg PO DAILY 11/18/18 11/18/18 History Sertraline [Zoloft] 25 mg PO DAILY 11/18/18 11/18/18 History Sevelamer [Renvela] 800 mg PO BID 11/18/18 11/18/18 History Tamsulosin [Flomax] 0.4 mg PO DAILY 11/18/18 11/18/18 History Velphpro 2500mg (500mg Elemental 1 tab PO DAILY 11/18/18 11/18/18 History Iron) Tablet Allergies Allergy/AdvReac Type Severity Reaction Status Date / Time hydromorphone [From Dilaudid] Allergy Hallucinati Verified 11/18/18 18:24 ons garlic AdvReac Diarrhea Verified 11/18/18 18:24 prednisone AdvReac Increased Verified 11/18/18 18:24 Blood Pressure sour cream AdvReac Diarrhea Uncoded 11/18/18 17:35 Physical Exam Vitals: Vital Signs Temp Pulse Pulse Resp BP BP Pulse Ox 11/19/18 08:10 98.7 F 81 18 103/65 94 L 11/19/18 07:46 94 L 11/19/18 01:10 96 11/19/18 00:50 97.9 F 83 16 124/76 92 L 11/19/18 00:00 83 11/18/18 20:30 96.7 F L 81 16 147/77 95 11/18/18 20:04 96.8 F L 76 15 128/89 93 L 11/18/18 18:05 78 15 132/77 93 L 11/18/18 17:33 97.0 F L 70 20 136/70 93 L Intake and Output 11/18/18 11/19/18 11/19/18 22:59 06:59 14:59 Other: Voiding Method CAPD Weight 66.224 kg Results - Lab Results Most recent lab results Calcium 8.9 mg/dL (8.4-10.2) 11/18/18 17:53 11/18/18 17:53 11/18/18 17:53 Assessment and Plan Plan: Assessment: 1. End-stage renal disease maintained on peritoneal dialysis. 2. Right intertrochanteric hip fracture secondary to fall. 3. Chronic hypotension maintained on midodrine. 4. Chronic kidney disease mineral bone disease maintained on Renvela. 5. Anemia of chronic kidney disease. Plan: Resume PD - 2 L exchanges every 6 hours with 1.5% solution. Add Aranesp. Cleared for intramedullary nailing of the right femur today from nephrology standpoint. Thank you for the consultation. I will continue to follow the patient with you during his hospital stay.
--- NOTE | 2018-11-19 11:52 | P.CRDCN ---
History of Present Illness History of present illness: This is a pleasant 72-year-old male past medical history significant for chronic kidney disease on peritoneal dialysis, coronary artery disease status post stent placement, hypertension, dyslipidemia, carotid stenosis status post left endarterectomy and mitral insufficiency. He follows with Dr. Huerta in the office. We have been asked to see him in consultation secondary to cardiac evaluation prior to hip surgery. He presented to the hospital last evening after suffering a fall while getting his male. He states he was bending over to pear picker his mail and simply fell forward. He denies symptoms of chest pain, dizziness, shortness of breath or palpitations prior to falling. Imaging studies revealed right intertrochanteric hip fracture. He is scheduled for surgical intervention for intermittent biliary nailing of right femur with Dr. Girard this afternoon. He is seen and examined resting comfortably in bed in no acute distress. He denies symptoms of chest discomfort , shortness of breath, dizziness, palpitations, PND or orthopnea. Cardiac catheterization performed in 2011 is been reviewed and reveals significant stenosis in the mid RCA and first diagonal branch. At that time he underwent successful stenting of the mid RCA as well as diagonal branch. Most recent echocardiogram obtained May 2018 reveals mildly impaired left ventricular systolic function with ejection fraction 45-50%, basal inferior septal and mid inferoseptal wall motion hypokinesia, mild MR and mild TR. Most recent stress test performed in the office with a Lexiscan stress test in 2015 which revealed a fixed inferior wall defect with mild LV dysfunction and ejection fraction 45% with no evidence of reversible cardiac ischemia. When compared to most recent echocardiogram obtained in the office April 2017 this is consistent. EKG obtained reveals sinus mechanism heart rate 84 with evidence of anterior infarct in the past with poor R-wave progression. This is consistent with previous EKG. Laboratory data reviewed, WBC 13, hemoglobin 10, platelets 277, sodium 139, potassium 4.2, creatinine 9.78, GFR 5. Current cardiac medications include atenolol 12.5 mg daily, Lopid 600 mg daily, aspirin 81 mg daily, atorvastatin 40 mg daily, Midodrine 5 mg 3 times a day. At the time of my exam: CONSTITUTIONAL: Denies fever. Denies chills. EYES: Denies blurred vision. Denies vision changes. Denies eye pain. EARS, NOSE, MOUTH & THROAT: Denies headache. Denies sore throat. Denies ear pain. CARDIOVASCULAR: Denies chest pain. Denies shortness of breath. Denies orthopnea. Denies PND. Denies palpitations. RESPIRATORY: Denies cough. GASTROINTESTINAL: Denies abdominal pain. Denies diarrhea. Denies constipation. Denies nausea. Denies vomiting. MUSCULOSKELETAL: Complains of right hip discomfort. INTEGUMENTARY: Denies pruitis. Denies rash. NEUROLOGIC: Denies numbness. Denies tingling. Denies weakness. PSYCHIATRIC: Denies anxiety. Denies depression. ENDOCRINE: Denies fatigue. Denies weight change. Denies polydipsia. Denies polyurina. GENITOURINARY: Denies burning, hematuria or urgency with micturation. HEMATOLOGIC: Denies history of anemia. Denies bleeding. Blood pressure 103/65 heart rate 81 afebrile maintaining oxygen saturation on room air. GENERAL: This is a 72-year-old male in no apparent distress at the time of my examination. HEENT: Head is atraumatic, normocephalic. Pupils are equal, round. Sclerae anicteric. Conjunctivae are clear. Mucous membranes of the mouth are moist. Neck is supple. There is no jugular venous distention. No carotid bruit is heard. LUNGS: Clear to auscultation no wheezes, rales or rhonchi. No chest wall tenderness is noted on palpation or with deep breathing. HEART: Regular rate and rhythm without murmurs, rubs or gallops. S1 and S2 heard. ABDOMEN: Soft, nontender. Bowel sounds are heard. No organomegaly noted. EXTREMITIES: No evidence of peripheral edema and no calf tenderness noted. VASCULAR: Radial and dorsalis pedis pulses palpated, no evidence of clubbing. NEUROLOGIC: Patient is awake, alert and oriented x3. ASSESSMENT Mechanical fall causing right interotrochanteric femur fracture History of coronary artery disease s/p stent placement 2011 Hypertension Dyslipidemia Chronic kidney disease on peritoneal dialysis History of carotid artery disease s/p left endartectomy PLAN EKG requested this morning and echocardiogram from May have been reviewed. He has no symptoms suggestive of angina or heart failure. No acute contraindications to surgical intervention. Recommend optimal blood pressure control and cautious fluid administration intra -operatively. Continue atorvastatin and atenolol throughout hospital stay. Follow up with Dr. Huerta upon discharge. Nurse Practitioner note has been reviewed, I agree with a documented findings and plan of care. Patient was seen and examined. Past Medical History Past Medical History: Atrial Fibrillation, Coronary Artery Disease (CAD), Diabetes Mellitus, Dialysis, Hyperlipidemia, Hypertension, Renal Disease, Thyroid Disorder Additional Past Medical History / Comment(s): PERITONEAL DIALYSIS (CAPD).Hx. cataracts removed bilat 2003 Hx. kidney biopsy 2012 History of Any Multi-Drug Resistant Organisms: None Reported Past Surgical History: Heart Catheterization With Stent Additional Past Surgical History / Comment(s): FIstula left arm. Hx. carotid artery surgery 2005; left carotid endarterectomy Past Anesthesia/Blood Transfusion Reactions: No Reported Reaction Date of Last Stent Placement:: 2011 Past Psychological History: No Psychological Hx Reported Smoking Status: Never smoker Past Alcohol Use History: None Reported Past Drug Use History: None Reported - Past Family History Father Additional Family Medical History / Comment(s): Hx. father "brights disease" age 47 Mom CHF at 81 Brother(s) Family Medical History: Deep Vein Thrombosis (DVT) Medications and Allergies Home Medications Medication Instructions Recorded Confirmed Type Aspirin EC [Ecotrin Low Dose] 81 mg PO DAILY 03/06/17 11/18/18 History Atenolol [Tenormin] 12.5 mg PO QAM 03/06/17 11/18/18 History Atorvastatin [Lipitor] 40 mg PO DAILY 03/06/17 11/18/18 History Gemfibrozil [Lopid] 600 mg PO DAILY 03/06/17 11/18/18 History Gabapentin [Neurontin] 100 mg PO TID 07/12/17 11/18/18 History Midodrine [ProAmatine] 5 mg PO TID 07/12/17 11/18/18 History Polyethylene Glycol 3350 [Miralax] 17 gm PO DAILY PRN 07/12/17 11/18/18 History Sodium Bicarbonate Tab 650 mg PO BID 07/12/17 11/18/18 History HYDROcodone/APAP 7.5-325MG [[place] 1 tab PO BID 06/03/18 11/18/18 History 7.5-325] Lanthanum Carbonate 1,000 mg PO TID-W/MEALS 11/18/18 11/18/18 History Methocarbamol [Robaxin] 750 mg PO TID PRN 11/18/18 11/18/18 History Multivitamins, Thera [Multivitamin 1 tab PO DAILY 11/18/18 11/18/18 History (formulary)] Omeprazole [PriLOSEC] 20 mg PO DAILY 11/18/18 11/18/18 History Sertraline [Zoloft] 25 mg PO DAILY 11/18/18 11/18/18 History Sevelamer [Renvela] 800 mg PO BID 11/18/18 11/18/18 History Tamsulosin [Flomax] 0.4 mg PO DAILY 11/18/18 11/18/18 History Velphpro 2500mg (500mg Elemental 1 tab PO DAILY 11/18/18 11/18/18 History Iron) Tablet Allergies Allergy/AdvReac Type Severity Reaction Status Date / Time hydromorphone [From Dilaudid] Allergy Hallucinati Verified 11/18/18 18:24 ons garlic AdvReac Diarrhea Verified 11/18/18 18:24 prednisone AdvReac Increased Verified 11/18/18 18:24 Blood Pressure sour cream AdvReac Diarrhea Uncoded 11/18/18 17:35 Physical Exam Vitals: Vital Signs Temp Pulse Pulse Resp BP BP Pulse Ox 11/19/18 08:10 98.7 F 81 18 103/65 94 L 11/19/18 07:46 94 L 11/19/18 01:10 96 11/19/18 00:50 97.9 F 83 16 124/76 92 L 11/19/18 00:00 83 11/18/18 20:30 96.7 F L 81 16 147/77 95 11/18/18 20:04 96.8 F L 76 15 128/89 93 L 11/18/18 18:05 78 15 132/77 93 L 11/18/18 17:33 97.0 F L 70 20 136/70 93 L Intake and Output 11/18/18 11/19/18 11/19/18 22:59 06:59 14:59 Other: Voiding Method CAPD Weight 66.224 kg Results 11/18/18 17:53 11/18/18 17:53 Cardiac Enzymes 11/18/18 Range/Units 17:53 AST 17 (17-59) U/L Coagulation 11/18/18 Range/Units 17:53 PT 9.9 (9.0-12.0) sec APTT 23.5 (22.0-30.0) sec CBC 11/18/18 Range/Units 17:53 WBC 13.0 H (3.8-10.6) k/uL RBC 3.15 L (4.30-5.90) m/uL Hgb 10.0 L (13.0-17.5) gm/dL Hct 30.7 L (39.0-53.0) % Plt Count 277 (150-450) k/uL Comprehensive Metabolic Panel 11/18/18 Range/Units 17:53 Sodium 139 (137-145) mmol/L Potassium 4.2 (3.5-5.1) mmol/L Chloride 99 (98-107) mmol/L Carbon Dioxide 25 (22-30) mmol/L BUN 75 H (9-20) mg/dL Creatinine 9.78 H* (0.66-1.25) mg/dL Glucose 98 (74-99) mg/dL Calcium 8.9 (8.4-10.2) mg/dL AST 17 (17-59) U/L ALT 34 (21-72) U/L Alkaline Phosphatase 92 (38-126) U/L Total Protein 6.0 L (6.3-8.2) g/dL Albumin 3.4 L (3.5-5.0) g/dL Current Medications Generic Name Dose Route Start Last Admin Trade Name Freq PRN Reason Stop Dose Admin Hydrocodone Bitart/Acetaminophen 1 each 11/18/18 22:00 [place] 7.5-325 PO BID PRN Pain Atenolol 12.5 mg 11/19/18 09:00 11/19/18 10:51 Tenormin PO 12.5 mg QAM LULA Administration Atorvastatin Calcium 40 mg 11/19/18 11:12 Lipitor PO HS LULA Darbepoetin Kenan 40 mcg 11/19/18 12:00 Aranesp SQ Q7D [facility] Enoxaparin Sodium 40 mg 11/19/18 09:00 Lovenox SQ DAILY L[facility]A Fenofibrate 160 mg 11/19/18 09:00 11/19/18 10:51 Lofibra PO 160 mg DAILY LULA Administration Gabapentin 100 mg 11/18/18 22:00 11/19/18 10:58 Neurontin PO Not Given TID LULA Sodium Chloride 1,000 mls @ 75 mls/hr 11/18/18 18:45 11/19/18 08:15 Saline 0.9% IV Not Given .[id number] [facility] Peritoneal Dialysis Solution 30 g in 2,000 mls @ 0 mls/hr 11/19/18 21:00 Delflex With 1.5% Dextrose (2,000 Ml) INTRAPERIT Q6H [facility] Protocol As Directed Methocarbamol 750 mg 11/18/18 21:49 Robaxin PO TID PRN Pain Midodrine 5 mg 11/19/18 09:00 11/19/18 10:51 Proamatine PO 5 mg TID LULA Administration Morphine Sulfate 4 mg 11/18/18 17:51 11/18/18 20:52 Morphine Sulfate (Inj) IVP 4 mg Q4HR PRN Administration Pain Multivitamins 1 each 11/19/18 12:00 11/19/18 10:13 Theragran PO Not Given DAILY@1200 [facility] Naloxone HCl 0.2 mg 11/18/18 18:45 Narcan IV Q2M PRN Opioid Reversal Non-Formulary Medication 1,000 mg 11/19/18 07:30 Lanthanum Carbonate [Lanthanum Carbonate] PO TID-W/MEALS [facility] Pantoprazole Sodium 40 mg 11/19/18 07:30 11/19/18 10:51 Protonix PO 40 mg DAILY@0730 [facility] Administration Polyethylene Glycol 17 gm 11/18/18 21:49 Miralax PO DAILY PRN Constipation Sertraline HCl 25 mg 11/19/18 09:00 11/19/18 10:51 Zoloft PO 25 mg DAILY [facility] Administration Sevelamer Carbonate 1,600 mg 11/19/18 12:30 Renvela PO TID-W/MEALS [facility] Sodium Bicarbonate 650 mg 11/18/18 22:00 11/19/18 10:50 Sodium Bicarbonate Tab PO 650 mg BID [facility] Administration Tamsulosin HCl 0.4 mg 11/19/18 09:00 11/19/18 10:51 Flomax PO 0.4 mg DAILY [facility] Administration Intake and Output 11/18/18 11/19/18 11/19/18 22:59 06:59 14:59 Other: Voiding Method CAPD Weight 66.224 kg 11/18/18 17:53 11/18/18 17:53
[2018-11-19] MEDS: SEVELAMER 800 MG TAB PO SCH ×2 (14:10→22:21)
[2018-11-19] MEDS: DARBEPOETIN ALFA 40 MCG/0.4 ML SYRINGE SQ SCH (17:14)
[2018-11-19] MEDS ORDERED: SODIUM CHLORIDE 0.9% 500 ML 500 ML IV ONE (19:01)
[2018-11-19] MEDS ORDERED: PHENYLEPHRINE-0.9% NACL SYG 1 MG/10 ML SYRINGE ONE (19:05)
[2018-11-19] MEDS ORDERED: KETAMINE 10 MG/ML 20 ML VIAL ONE (19:05)
[2018-11-19] MEDS ORDERED: MIDAZOLAM 2 MG/2 ML VIAL ONE (19:05)
[2018-11-19] MEDS ORDERED: SODIUM CHLORIDE 0.9% 50 ML with ceFAZolin 2,000 MG IV ONE ×2 (19:06)
[2018-11-19] MEDS ORDERED: ONDANSETRON 4 MG/2 ML VIAL IVP PRN (20:24)
[2018-11-19] MEDS ORDERED: MAGNESIUM HYDROXIDE 2,400 MG/10 ML CUP PO PRN (20:24)
[2018-11-19] MEDS ORDERED: HYDROcodone/APAP 7.5-325MG 1 EACH TAB PO PRN (20:26)
--- NOTE | 2018-11-19 20:26 | P.OP ---
Date of Procedure: 11/19/18 Preoperative Diagnosis: Displaced right intertrochanteric femur fracture Postoperative Diagnosis: Same Procedure(s) Performed: Trochanteric intramedullary nailing right intertrochanteric femur fracture Implants: Carley 13 mm short trochanteric [id number], 95 mm compression screw Anesthesia: spinal Surgeon: Vitor Girard Asset Protection Assistant #1: Scottie Zuniga Estimated Blood Loss (ml): 30 Pathology: none sent Condition: stable Disposition: PACU Indications for Procedure: The patient is a 72-year-old community ambulator presents after falling injuring his right hip. Upon evaluation he was noted of evidence of a displaced right intertrochanteric femur fracture. A discussion of the risks and benefits of operative intervention was made with patient and his family. He opted to proceed. Operative risks to include infection, neurovascular injury , development of blood clots, possible development nonunion/malunion, and possible need for subsequent procedures was discussed. Informed consent was obtained. Operative Findings: As below Description of Procedure: The patient was brought to the operating room, and after induction of spinal anesthesia was placed supine on the fracture table. The fracture was reduced with longitudinal traction and internal rotation of the right lower external he. This is verified on AP and lateral views of fluoroscopy. The right lower extremity was prepped and draped in normal fashion. A 10 cm incision was then made proximal to greater trochanter. Skin and subcutaneous tissues were divided sharply. Electrocautery was used for hemostasis. The gluteus roberth fascia was split in line with skin incision. Blunt dissection was then made down to the tip of the greater trochanter. A starting awl was then utilized in the tip of the greater trochanter and this was verified with fluoroscopy. A ball-tipped guidewire was inserted. The proximal portion was reamed with the trochanteric reamer to the level of the lesser trochanter. The distal shaft was reamed up to 14 mm. A 13 mm short trochanteric nail was then gently inserted over the guidewire. The guidewire was then removed. The appropriate guide was used for placement of the compression screw. A triple reamer was used to a 95 mm depth. A 95 mm compression screw was inserted to within 5 mm of the articular surface on the AP and lateral views. Good purchase was obtained. The set screw was placed. The static distal locking screw was placed utilizing the appropriate guide. Final fluoroscopic view showed adequate reduction of the fracture and placement of the implant. This was verified on the AP and lateral views. The wounds were irrigated with normal saline. The fascia was closed with running 0 Vicryl suture. The subcu tissues were reapproximated interrupted 2-0 Vicryl sutures. The skin was reapproximated with ana. A sterile dressing was applied. The patient was awoken from sedation and transferred to recovery room in fair condition. Blood loss was estimated 30 mL. No complications were incurred. Sponge and needle counts were correct in the case.
[2018-11-19 21:57] LABS: Anisocytosis Slight; HCT 32.6 % (39.0-53.0); HGB 10.2 gm/dL (13.0-17.5); Hypochromasia Moderate; MCHC 31.4 g/dL (31.0-37.0); Macrocytosis Moderate; Mean Platelet Volume 7.3; Platelet Count 260 k/uL (150-450); RBC 3.19 m/uL (4.30-5.90); RDW 17.4 % (11.5-15.5); WBC 15.7 k/uL (3.8-10.6)
[2018-11-19] MEDS: DIALYSIS (PERIT 1.5%) 2,000 ML 30 G/2,000 ML BAG INTRAPERIT SCH (22:18)
[2018-11-19 22:20] LABS: Eosinophils # (M) 0.31 k/uL (0-0.7); Lymphocytes # (M) 2.04 k/uL (1.0-4.8); Monocytes # (M) 0.94 k/uL (0-1.0); Neutrophils % (M) 79 %; Nucleated Red Blood Cells 0 /100 WBC (0-0); Total Cells Counted 100
--- NOTE | 2018-11-19 22:59 | FL ---
EXAMINATION TYPE: FL guidance operating room, XR Hip Complete RT DATE OF EXAM: 11/19/2018 CLINICAL HISTORY: Right hip fracture. TECHNIQUE: Fluoroscopy. Intraoperative 2 views right hip. COMPARISON: Outside right hip x-ray from yesterday. FINDINGS: Fluoroscopic guidance was provided during open reduction internal fixation procedure perfo rmed by Dr. Girard. A total of 1.27 minutes of fluoroscopic time was utilized during the procedure an d 4 spot fluoroscopic intraoperative images are acquired. Images acquired show placement of intramedullary jean-paul with distal transverse fixating screw in larger femoral neck fixating screw through subcapital fracture right proximal femur. Alignment appears satis factory on the intraoperative images provided. IMPRESSION: As Above.
[2018-11-19] MEDS: SENNOSIDES-DOCUSATE SODIUM 1 EACH TAB PO SCH (23:37)
[2018-11-20] MEDS: ceFAZolin IN SWFI 2 GM/20 ML SYRINGE IVP SCH ×2 (03:08→11:44)
[2018-11-20] MEDS: DIALYSIS (PERIT 1.5%) 2,000 ML 30 G/2,000 ML BAG INTRAPERIT SCH ×4 (03:36→21:46)
[2018-11-20] MEDS: TAMSULOSIN 0.4 MG CAP.ER.24H PO SCH (07:06)
[2018-11-20] MEDS: MIDODRINE 5 MG TAB PO SCH ×3 (07:06→21:58)
[2018-11-20] MEDS: FENOFIBRATE 160 MG TAB PO SCH (07:06)
[2018-11-20] MEDS: SODIUM BICARBONATE TAB 650 MG TAB PO SCH ×2 (07:06→21:59)
[2018-11-20] MEDS: ATENOLOL 25 MG TAB PO SCH (07:07)
[2018-11-20] MEDS: PANTOPRAZOLE 40 MG TABLET PO SCH (07:07)
[2018-11-20] MEDS: GABAPENTIN 100 MG CAP PO SCH ×3 (07:07→21:59)
[2018-11-20] MEDS: SEVELAMER 800 MG TAB PO SCH ×3 (07:08→16:43)
[2018-11-20] MEDS: SERTRALINE 25 MG TAB PO SCH (07:08)
--- NOTE | 2018-11-20 07:15 | PN ---
PROGRESS NOTE DATE OF SERVICE: 11/19/2018 PRESENTING COMPLAINT: Right femur intertrochanteric fracture. INTERVAL HISTORY: This patient is seen by me yesterday. Just prior to going down for surgery, patient had a full session of peritoneal dialysis. Patient is lying in bed, comfortable. Patient was cleared by Cardiology, otherwise stable. Patient's family at the bedside including his nephew and brother. REVIEW OF SYSTEMS: Done for constitutional, cardiovascular, GI, pulmonary; relevant findings as above. CURRENT MEDICATIONS: Reviewed. PHYSICAL EXAMINATION: Temperature 98, pulse 85, respiration 16, blood pressure 147/77, pulse ox 94% on room air. GENERAL APPEARANCE: Lying in bed, awake. EYES: Pupils, equal, conjunctivae normal. NECK: JVD not raised. Mass not palpable. RESPIRATORY: Effort normal. Lungs are clear. CARDIOVASCULAR: First and second sounds are noted, no edema. ABDOMEN: Soft, nontender. Liver and spleen not palpable. PD catheter in place. PSYCHIATRY: Alert and orient x3. Mood and affect was normal. INVESTIGATIONS: White count 15.7, hemoglobin 10.2. ASSESSMENT: 1. Right femur intertrochanteric fracture secondary to fall. Later in the day, patient did have a IM nailing placed. 2. Coronary artery, prior history of stent, stable. 3. Hyperlipidemia. 4. Essential hypertension. 5. 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 6. End-stage kidney disease on CAPD. 7. Benign prostatic hypertrophy. 8. Anxiety, not otherwise specified. 9. Primary osteoarthritis. PLAN: Continue current medication and treatment plan. Later in the day, patient did undergo surgery, otherwise had been stable. MMODL / IJN: [id number] /
[2018-11-20] MEDS: ENOXAPARIN 30 MG/0.3 ML SYRINGE SQ SCH ×2 (09:49→09:50)
[2018-11-20] MEDS: SODIUM CHLORIDE 0.9% 1,000 ML IV SCH (09:50)
--- NOTE | 2018-11-20 10:32 | P.PN ---
Subjective Patient is seen in follow-up for end-stage renal disease. He is maintained on peritoneal dialysis. He underwent intramedullary nailing of right intertrochanteric femur fracture on November 19. Currently resting in bed. Denies chest pain or shortness of breath. No problems with peritoneal dialysis. Vital signs are stable. General: The patient appeared well nourished and normally developed. HEENT: Head exam is unremarkable. Neck is without jugular venous distension. LUNGS: Lungs are clear to auscultation and percussion. Breath sounds decreased. HEART: Rate and Rhythm are regular. First and second heart sounds normal. No murmurs, rubs or gallops. ABDOMEN: Abdominal exam reveals normal bowel sounds. Non-tender and non- distended. No evidence of peritonitis. EXTREMITITES: No clubbing, cyanosis, or edema. Objective - Vital Signs Vital signs: Vital Signs Temp 98.8 F 11/20/18 07:01 Pulse 72 11/20/18 07:01 Resp 16 11/20/18 07:01 BP 90/54 11/20/18 07:01 Pulse Ox 85 L 11/20/18 08:48 Intake & Output 11/19/18 11/20/18 11/20/18 18:59 06:59 18:59 Intake Total 0 1162.5 Output Total 20 Balance 0 1142.5 Intake: IV 450 Intake, IV Titration 712.5 Amount Sodium Chloride 0.9% 1, 712.5 000 ml @ 75 mls/hr IV . [id number] LULA Rx#:[id number] Oral 0 Output: Estimated Blood Loss 20 Other: Voiding Method CAPD CAPD - Labs CBC & Chem 7: 11/19/18 21:24 11/18/18 17:53 Labs: Abnormal Lab Results - Last 24 Hours (Table) 11/19/18 Range/Units 21:24 WBC 15.7 H (3.8-10.6) k/uL RBC 3.19 L (4.30-5.90) m/uL Hgb 10.2 L (13.0-17.5) gm/dL Hct 32.6 L (39.0-53.0) % MCV 102.0 H (80.0-100.0) fL RDW 17.4 H (11.5-15.5) % Neutrophils # (Manual) 12.40 H (1.3-7.7) k/uL Assessment and Plan Plan: Assessment: 1. End-stage renal disease maintained on peritoneal dialysis. 2. Right intertrochanteric hip fracture secondary to fall status post intramedullary nailing on November 19. 3. Chronic hypotension maintained on midodrine. 4. Chronic kidney disease mineral bone disease maintained on Renvela. 5. Anemia of chronic kidney disease Maintained on Aranesp. Plan: Maintain PD - 2 L exchanges every 6 hours with 1.5% solution.
[2018-11-20] MEDS: MULTIVITAMINS, THERA 1 EACH TAB PO SCH (11:39)
[2018-11-20] MEDS: NALOXONE 0.4 MG/ML 1 ML VIAL IV PRN (11:46)
[2018-11-20] MEDS: ACETAMINOPHEN TAB 325 MG TAB PO PRN ×2 (12:11→17:46)
--- NOTE | 2018-11-20 14:06 | P.PN ---
Subjective This is a pleasant 72-year-old male past medical history significant for chronic kidney disease on peritoneal dialysis, coronary artery disease status post stent placement, hypertension, dyslipidemia, carotid stenosis status post left endarterectomy and mitral insufficiency. He follows with Dr. Huerta in the office. He is postoperative day #1 for trochanteric IM nailing of the right intertrochanteric femur fracture. He is seen and examined resting comfortably in bed in no acute distress. He has been quite lethargic all day per nursing staff and family members. He has undergone peritoneal dialysis twice since surgery. He does wake up to painful stimuli. She denies symptoms of chest discomfort, shortness of breath, dizziness or palpitations. Blood pressure 117/73 heart rate 67 afebrile maintaining oxygen saturation on nasal cannula. Earlier this morning around 845 he was found to be hypoxic with an O2 saturation of 85%. GENERAL: This is a 72-year-old male in no apparent distress at the time of my examination. HEENT: Head is atraumatic, normocephalic. Pupils are equal, round. Sclerae anicteric. Conjunctivae are clear. Mucous membranes of the mouth are moist. Neck is supple. There is no jugular venous distention. No carotid bruit is heard. LUNGS: Clear to auscultation no wheezes, rales or rhonchi. No chest wall tenderness is noted on palpation or with deep breathing. HEART: Regular rate and rhythm without murmurs, rubs or gallops. S1 and S2 heard. EXTREMITIES: No evidence of peripheral edema and no calf tenderness noted. ASSESSMENT Mechanical fall causing right interotrochanteric femur fracture Postoperative day #1 IM nailing of the right femur Hypoxia History of coronary artery disease s/p stent placement 2011 Hypertension Dyslipidemia Chronic kidney disease on peritoneal dialysis History of carotid artery disease s/p left endartectomy PLAN No evidence of angina or heart failure. Ongoing medical management. Follow-up with Dr. Huerta upon discharge. Nurse Practitioner note has been reviewed, I agree with a documented findings and plan of care. Patient was seen and examined. Objective - Vital Signs Vital signs: Vital Signs Temp 98.8 F 11/20/18 07:01 Pulse 67 11/20/18 11:38 Resp 16 11/20/18 11:46 BP 117/73 11/20/18 11:38 Pulse Ox 97 11/20/18 11:38 Intake & Output 11/19/18 11/20/18 11/20/18 18:59 06:59 18:59 Intake Total 0 1162.5 Output Total 20 Balance 0 1142.5 Intake: IV 450 Intake, IV Titration 712.5 Amount Sodium Chloride 0.9% 1, 712.5 000 ml @ 75 mls/hr IV . [id number] [facility] Rx#:[id number] Oral 0 Output: Estimated Blood Loss 20 Other: Voiding Method CAPD CAPD - Labs CBC & Chem 7: 11/19/18 21:24 11/18/18 17:53 Labs: Abnormal Lab Results - Last 24 Hours (Table) 11/19/18 Range/Units 21:24 WBC 15.7 H (3.8-10.6) k/uL RBC 3.19 L (4.30-5.90) m/uL Hgb 10.2 L (13.0-17.5) gm/dL Hct 32.6 L (39.0-53.0) % MCV 102.0 H (80.0-100.0) fL RDW 17.4 H (11.5-15.5) % Neutrophils # (Manual) 12.40 H (1.3-7.7) k/uL
[2018-11-20] MEDS: ATORVASTATIN 40 MG TAB PO SCH (21:59)
[2018-11-20] MEDS: SENNOSIDES-DOCUSATE SODIUM 1 EACH TAB PO SCH (21:59)
--- NOTE | 2018-11-20 23:30 | CT ---
EXAMINATION TYPE: CT brain wo con DATE OF EXAM: 11/20/2018 COMPARISON: None HISTORY: LETHARGIC CT DLP: 1176.4 mGycm Automated exposure control for dose reduction was used. FINDINGS: There is cerebral cortical atrophy. There is some hypodensity in the periventricular white matter. Ca lvarium is intact. There is mucosal thickening in the right maxillary sinus which is deformed. There is no midline shift. There is no sign of intracranial hemorrhage. IMPRESSION: CEREBRAL ATROPHY AND CHRONIC SMALL VESSEL ISCHEMIA. HYPOPLASTIC RIGHT MAXILLARY SINUS.
--- NOTE | 2018-11-21 00:01 | PN ---
PROGRESS NOTE DATE OF SERVICE: November 20, 2018. PRESENTING COMPLAINT: Right femur fracture. INTERVAL HISTORY: Patient is status post surgery for the right femur. I saw this patient this afternoon. Patient is rather lethargic. I ordered Narcan to which he did respond. I think the presentation is metabolic. The patient is able to answer some questions. The patient did get a Hayti in the early hours of the morning. Family is present at the bedside. The patient is moving limbs. REVIEW OF SYSTEMS: Attempted for constitutional, cardiovascular, GI, pulmonary and relevant findings as above. CURRENT MEDICATIONS: Reviewed that include: 1. Neurontin 100 mg 3 times a day. 2. Hayti p.r.n. 3. Morphine. 4. Zoloft. 5. IV fluids. PHYSICAL EXAMINATION: VITAL SIGNS: Temperature 97.8, pulse 57, respirations 16, blood pressure 83/51, pulse ox 95 percent on 3 L. GENERAL APPEARANCE: Lying in bed, lethargic but arousable. EYES: Pupils equal. Conjunctivae normal. NECK: JVD not raised. Mass not palpable. RESPIRATORY: Effort. LUNGS are clear. CARDIOVASCULAR: 1st and 2nd sounds normal. No edema. ABDOMEN: Soft, nontender. Liver and spleen not palpable. PD catheter in place. PSYCHIATRY: Lethargic but arousable. INVESTIGATIONS: White count 15.7, hemoglobin 10.2. ASSESSMENT: 1. Acute metabolic encephalopathy could be from pain medications including Hayti. Also patient is on Neurontin and that could have accumulated in the setting of renal failure. The patient will need to get a partial dialysis yesterday. 2. Right femur IT fracture secondary to fall. 3. Coronary artery disease, prior history of stent. 4. Hyperlipidemia. 5. Essential hypertension. 6. 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 7. End-stage kidney disease on CAPD. 8. Benign prostatic hypertrophy. 9. Anxiety not otherwise specified. 10.Primary osteoarthritis. PLAN: I saw the patient in the evening. He is still lethargic. We will stop patient's Neurontin now. We will also get a CT scan without contrast, though extremely highly unlikely since there are no other focal symptoms. Follow closely. MMODL / IJN: [id number] /
[2018-11-21] MEDS: SODIUM CHLORIDE 0.9% 1,000 ML IV SCH ×2 (01:37→10:25)
[2018-11-21] MEDS: DIALYSIS (PERIT 1.5%) 2,000 ML 30 G/2,000 ML BAG INTRAPERIT SCH ×4 (03:54→17:21)
[2018-11-21 08:02] LABS: Calcium 8.1 mg/dL (8.4-10.2); Potassium 4.7 mmol/L (3.5-5.1)
[2018-11-21 08:26] LABS: Anisocytosis Slight; Basophils % (A) 0 %; Eosinophils # (A) 0.4 k/uL (0-0.7); Eosinophils % (A) 3 %; HCT 25.2 % (39.0-53.0); Hypochromasia Slight; Lymphocytes # (A) 0.6 k/uL (1.0-4.8); Lymphocytes % (A) 5 %; MCHC 31.3 g/dL (31.0-37.0); MCV 99.1 fL (80.0-100.0); Macrocytosis Slight; Mean Platelet Volume 7.6; Monocytes # (A) 1.2 k/uL (0-1.0); Monocytes % (A) 9 %; Neutrophils # (A) 10.5 k/uL (1.3-7.7); Neutrophils % (A) 80 %; Platelet Count 213 k/uL (150-450); RBC 2.55 m/uL (4.30-5.90); RDW 17.3 % (11.5-15.5); WBC 13.2 k/uL (3.8-10.6)
[2018-11-21] MEDS: ENOXAPARIN 30 MG/0.3 ML SYRINGE SQ SCH (08:30)
[2018-11-21] MEDS: SODIUM BICARBONATE TAB 650 MG TAB PO SCH ×2 (08:31→21:22)
[2018-11-21] MEDS: MIDODRINE 5 MG TAB PO SCH ×2 (08:31→17:09)
[2018-11-21] MEDS: TAMSULOSIN 0.4 MG CAP.ER.24H PO SCH (08:32)
[2018-11-21] MEDS: ATENOLOL 25 MG TAB PO SCH (08:32)
[2018-11-21] MEDS: FENOFIBRATE 160 MG TAB PO SCH (08:32)
[2018-11-21] MEDS: PANTOPRAZOLE 40 MG TABLET PO SCH (08:32)
[2018-11-21] MEDS: SERTRALINE 25 MG TAB PO SCH (08:33)
[2018-11-21] MEDS: SEVELAMER 800 MG TAB PO SCH ×3 (08:33→18:33)
[2018-11-21 08:34] LABS: HGB 7.9 gm/dL (13.0-17.5)
[2018-11-21] MEDS: ACETAMINOPHEN TAB 325 MG TAB PO PRN (08:46)
[2018-11-21] MEDS ORDERED: NALOXONE 0.4 MG/ML 1 ML VIAL IV STA (09:27)
[2018-11-21] MEDS ORDERED: NALOXONE 0.4 MG/ML 1 ML VIAL ONE (10:18)
[2018-11-21] MEDS: KETOROLAC 30 MG/ML 1 ML VIAL IVP SCH ×2 (10:36→17:09)
--- NOTE | 2018-11-21 10:47 | P.PN ---
Subjective Patient is seen in follow-up for end-stage renal disease. He is maintained on peritoneal dialysis. He underwent intramedullary nailing of right intertrochanteric femur fracture on November 19. Currently resting in bed. Patient is more lethargic today. He's been receiving for pain. No problems with peritoneal dialysis. Vital signs are stable. General: The patient appeared well nourished and normally developed. HEENT: Head exam is unremarkable. Neck is without jugular venous distension. LUNGS: Lungs are clear to auscultation and percussion. Breath sounds decreased. HEART: Rate and Rhythm are regular. First and second heart sounds normal. No murmurs, rubs or gallops. ABDOMEN: Abdominal exam reveals normal bowel sounds. Non-tender and non- distended. No evidence of peritonitis. EXTREMITITES: No clubbing, cyanosis, or edema. Objective - Vital Signs Vital signs: Vital Signs Temp 97.6 F 11/21/18 06:56 Pulse 83 11/21/18 10:32 Resp 16 11/21/18 10:32 BP 117/62 11/21/18 10:32 Pulse Ox 100 11/21/18 10:32 Intake & Output 11/20/18 11/21/18 11/21/18 18:59 06:59 18:59 Intake Total 1300 Output Total 4600 Balance -3300 Intake: Intake, IV Titration 1200 Amount Sodium Chloride 0.9% 1, 1200 000 ml @ 75 mls/hr IV . [id number] [facility] Rx#:[id number] Oral 100 Output: Drainage 4600 Abdomen 4600 Other: Voiding Method CAPD CAPD # Voids 0 - Labs CBC & Chem 7: 11/21/18 06:31 11/21/18 06:31 Labs: Abnormal Lab Results - Last 24 Hours (Table) 11/21/18 11/21/18 Range/Units 06:31 06:31 WBC 13.2 H (3.8-10.6) k/uL RBC 2.55 L (4.30-5.90) m/uL Hgb 7.9 L D (13.0-17.5) gm/dL Hct 25.2 L (39.0-53.0) % RDW 17.3 H (11.5-15.5) % Neutrophils # 10.5 H (1.3-7.7) k/uL Lymphocytes # 0.6 L (1.0-4.8) k/uL Monocytes # 1.2 H (0-1.0) k/uL BUN 88 H (9-20) mg/dL Creatinine 10.89 H* (0.66-1.25) mg/dL Glucose 145 H (74-99) mg/dL Calcium 8.1 L (8.4-10.2) mg/dL Assessment and Plan Plan: Assessment: 1. End-stage renal disease maintained on peritoneal dialysis. 2. Right intertrochanteric hip fracture secondary to fall status post intramedullary nailing on November 19. 3. Chronic hypotension maintained on midodrine. 4. Chronic kidney disease mineral bone disease maintained on Renvela. 5. Anemia of chronic kidney disease Maintained on Aranesp. 6. Lethargy related to opioids and hypotension. Plan: Maintain PD - 2 L exchanges every 6 hours with 1.5% solution. Increase midodrine to 10 mg 3 times daily. Discontinue opioids. Okay to use Toradol and Tylenol for pain. Decrease rate of normal saline at 50 mL an hour.
[2018-11-21] MEDS: MULTIVITAMINS, THERA 1 EACH TAB PO SCH (11:16)
[2018-11-21] MEDS ORDERED: METHOCARBAMOL 500 MG TAB PO PRN (11:36)
[2018-11-21] MEDS ORDERED: ACETAMINOPHEN TAB 325 MG TAB PO SCH (12:00)
[2018-11-21] MEDS ORDERED: traMADol 50 MG TAB PO PRN (12:12)
--- NOTE | 2018-11-21 12:32 | P.PN ---
Subjective Progress Note Date: 11/21/18 Principal diagnosis: Status post IM nail right hip Patient evaluated to bedside today. Patient is more with her today, that he is Narcan on him a few different times. Narcotic medication has been halted. Objective - Vital Signs Vital signs: Vital Signs Temp 97.7 F 11/21/18 10:55 Pulse 81 11/21/18 10:55 Resp 17 11/21/18 10:55 BP 115/59 11/21/18 10:55 Pulse Ox 100 11/21/18 10:55 Intake & Output 11/20/18 11/21/18 11/21/18 18:59 06:59 18:59 Intake Total 1300 Output Total 4600 Balance -3300 Intake: Intake, IV Titration 1200 Amount Sodium Chloride 0.9% 1, 1200 000 ml @ 75 mls/hr IV . [id number] [facility] Rx#:[id number] Oral 100 Output: Drainage 4600 Abdomen 4600 Other: Voiding Method CAPD CAPD # Voids 0 - Exam Right lower extremity: Incisions are clean, dry and intact. Minimal soft tissue swelling present. Distal neurovascular exam is intact. - Labs CBC & Chem 7: 11/21/18 06:31 11/21/18 06:31 Labs: Abnormal Lab Results - Last 24 Hours (Table) 11/21/18 11/21/18 Range/Units 06:31 06:31 WBC 13.2 H (3.8-10.6) k/uL RBC 2.55 L (4.30-5.90) m/uL Hgb 7.9 L D (13.0-17.5) gm/dL Hct 25.2 L (39.0-53.0) % RDW 17.3 H (11.5-15.5) % Neutrophils # 10.5 H (1.3-7.7) k/uL Lymphocytes # 0.6 L (1.0-4.8) k/uL Monocytes # 1.2 H (0-1.0) k/uL BUN 88 H (9-20) mg/dL Creatinine 10.89 H* (0.66-1.25) mg/dL Glucose 145 H (74-99) mg/dL Calcium 8.1 L (8.4-10.2) mg/dL Assessment and Plan Plan: Assessment: Status post right intramedullary nail intertrochanteric femur fracture Plan: Continue weight-bear as tolerated with a history Pain control, hold narcotics GI and DVT prophylaxis Other medical specialty recommendations Discharge planning: Plan for discharge to rehab when stable Time with Patient: Less than 30
[2018-11-21] MEDS: NALOXONE 0.4 MG/ML 1 ML VIAL IV PRN ×2 (14:30→19:48)
[2018-11-21 14:31] LABS: ABG Base Excess -1.5 mmol/L; ABG HCO3 24 mmol/L (21-25); ABG PCO2 45 mmHg (35-45); ABG PH 7.34 (7.35-7.45); ABG PO2 85 mmHg (83-108); ABG TCO2 26 mmol/L (19-24)
[2018-11-21] MEDS: ACETAMINOPHEN TAB 325 MG TAB PO SCH ×2 (15:04→22:04)
[2018-11-21] MEDS: LACTATED RINGERS 500 ML IV SCH ×3 (15:07→17:21)
[2018-11-21] MEDS ORDERED: SODIUM CHLORIDE 0.9% 500 ML 500 ML IV ONE (19:51)
[2018-11-21 19:53] LABS: Glucose,Whole Blood 176 mg/dL (75-99)
[2018-11-21 20:11] LABS: Anisocytosis Slight; Basophils % (A) 0 %; Eosinophils # (A) 0.3 k/uL (0-0.7); Eosinophils % (A) 2 %; HCT 24.6 % (39.0-53.0); HGB 8.1 gm/dL (13.0-17.5); Hypochromasia Moderate; Lymphocytes # (A) 0.5 k/uL (1.0-4.8); Lymphocytes % (A) 4 %; MCH 32.6 pg (25.0-35.0); MCV 98.8 fL (80.0-100.0); Macrocytosis Slight; Mean Platelet Volume 7.6; Monocytes # (A) 0.9 k/uL (0-1.0); Monocytes % (A) 8 %; Neutrophils # (A) 10.1 k/uL (1.3-7.7); Neutrophils % (A) 84 %; Platelet Count 185 k/uL (150-450); RBC 2.49 m/uL (4.30-5.90); RDW 17.6 % (11.5-15.5); WBC 12.1 k/uL (3.8-10.6)
[2018-11-21 20:31] LABS: Albumin 2.5 g/dL (3.5-5.0); Calcium 7.8 mg/dL (8.4-10.2); Magnesium 2.2 mg/dL (1.6-2.3); Potassium 4.1 mmol/L (3.5-5.1); Total Bilirubin 0.5 mg/dL (0.2-1.3); Total Protein 4.8 g/dL (6.3-8.2)
[2018-11-21] MEDS: ATORVASTATIN 40 MG TAB PO SCH (21:22)
[2018-11-21] MEDS: SENNOSIDES-DOCUSATE SODIUM 1 EACH TAB PO SCH (21:22)
[2018-11-21 23:11] LABS: Glucose,Whole Blood 133 mg/dL (75-99)
[2018-11-22] MEDS: DIALYSIS (PERIT 1.5%) 2,000 ML 30 G/2,000 ML BAG INTRAPERIT SCH ×5 (01:10→23:31)
--- NOTE | 2018-11-22 01:44 | PN ---
PROGRESS NOTE DATE OF SERVICE: November 21, 2018. PRESENTING COMPLAINT: Low blood pressure. INTERVAL HISTORY: Patient is status post right femur. The patient is more awake from yesterday. Earlier did get a dose of Robaxin for muscle spasms. The patient's blood pressure dropped down to the 70s. Patient was not tachycardic. I gave a fluid bolus over the course of the evening. The patient kept having episodes of hypotension. Give the patient no further bolus. Increased IV fluids. The patient also got had peritoneal dialysis today. Later towards the evening, the patient again dropped his blood pressure. Assess the situation and the patient and decided to transfer the patient to the ICU with critical care. Patient may need Levophed support. Earlier spoke to the family at the bedside. REVIEW OF SYSTEMS: Done for constitutional, cardiovascular, GI, pulmonary, musculoskeletal and relevant findings as above. CURRENT MEDICATIONS: Reviewed. PHYSICAL EXAMINATION: VITAL SIGNS: Vital signs this evening: Temperature 97.5, pulse 65 and respiratory rate 16, blood pressure down to 72/47. GENERAL APPEARANCE: Lying in bed, tired-appearing. EYES: Conjunctivae pale. NECK: JVD unable to assess. Mass not palpable. RESPIRATORY: Effort normal. LUNGS are clear. CARDIOVASCULAR: 1st and 2nd sounds normal. No edema. Peritoneal catheter in place. PSYCHIATRY: Lethargic, but does answer questions more arousable than yesterday. INVESTIGATIONS: White count 12.1, hemoglobin 8.1. The patient's hemoglobin earlier was 7.9, potassium 4.1, BUN 84, creatinine 10.18. ASSESSMENT: 1. Acute hypotension. The patient's hemoglobin was 7.9. Given the acute hypertension, I did order a unit of blood to be given quicker. Still even after given the unit of blood, patient's blood pressure was low. Hence gave the patient two fluid boluses. Hence patient did not respond. Decided the patient be transferred to the ICU with critical care seasoning mixer with consultation. 2. Right femur IT fracture secondary to fall. 3. Coronary artery disease prior history of stent. 4. Hyperlipidemia. 5. Essential hypertension. 6. 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 7. End-stage kidney disease on CAPD. 8. Benign prostatic hypertrophy. 9. Anxiety not otherwise specified. 10.Primary osteoarthritis. 11.Acute metabolic encephalopathy, likely from patient being on Neurontin that was discontinued yesterday. PLAN: The patient transferred to the ICU, multiple boluses given a unit of blood given. Total critical care time and flow times today 60 minutes. YVONNEL / WILBERTON: [id number] /
[2018-11-22] MEDS: KETOROLAC 30 MG/ML 1 ML VIAL IVP SCH ×4 (02:14→17:33)
[2018-11-22 04:30] LABS: Hemoglobin A1C 5.4 % (4.0-6.0)
[2018-11-22] MEDS: ACETAMINOPHEN TAB 325 MG TAB PO SCH ×4 (04:45→20:36)
[2018-11-22 05:13] LABS: Anisocytosis Slight; Basophils % (A) 0 %; Eosinophils # (A) 0.5 k/uL (0-0.7); Eosinophils % (A) 5 %; HCT 27.6 % (39.0-53.0); HGB 8.8 gm/dL (13.0-17.5); Lymphocytes # (A) 0.5 k/uL (1.0-4.8); Lymphocytes % (A) 5 %; MCH 30.6 pg (25.0-35.0); MCHC 31.8 g/dL (31.0-37.0); MCV 96.4 fL (80.0-100.0); Macrocytosis Slight; Mean Platelet Volume 7.5; Monocytes % (A) 9 %; Neutrophils # (A) 8.8 k/uL (1.3-7.7); Neutrophils % (A) 79 %; Platelet Count 191 k/uL (150-450); RBC 2.86 m/uL (4.30-5.90); RDW 17.8 % (11.5-15.5); WBC 11.2 k/uL (3.8-10.6)
[2018-11-22 05:27] LABS: Calcium 8.2 mg/dL (8.4-10.2); Magnesium 2.3 mg/dL (1.6-2.3); Potassium 4.6 mmol/L (3.5-5.1)
[2018-11-22 06:17] LABS: Phosphorus 9.4 mg/dL (2.5-4.5)
[2018-11-22 08:29] LABS: Glucose,Whole Blood 113 mg/dL (75-99)
[2018-11-22] MEDS: INSULIN ASPART 100 UNIT/ML 1 ML 10 ML VIAL SQ SCH ×4 (08:31→20:32)
--- NOTE | 2018-11-22 08:34 | XR ---
EXAMINATION TYPE: XR chest 1V portable DATE OF EXAM: 11/22/2018 COMPARISON: 06/02/2018 INDICATION: Short of breath TECHNIQUE: Single frontal view of the chest is obtained. Patient is rotated to the right. FINDINGS: The heart size is normal. The pulmonary vasculature is prominent. The lungs are clear. IMPRESSION: 1. Some prominence of pulmonary vascular markings. Mild volume overload could be considered. Follow-u p as clinically indicated.
[2018-11-22] MEDS: PANTOPRAZOLE 40 MG TABLET PO SCH (08:38)
[2018-11-22] MEDS: SEVELAMER 800 MG TAB PO SCH ×3 (08:38→17:33)
[2018-11-22] MEDS: MIDODRINE 5 MG TAB PO SCH ×3 (08:38→17:33)
[2018-11-22] MEDS: MULTIVITAMINS, THERA 1 EACH TAB PO SCH (08:39)
[2018-11-22] MEDS: SODIUM BICARBONATE TAB 650 MG TAB PO SCH ×2 (08:39→20:23)
[2018-11-22] MEDS: TAMSULOSIN 0.4 MG CAP.ER.24H PO SCH (08:39)
[2018-11-22] MEDS: ENOXAPARIN 30 MG/0.3 ML SYRINGE SQ SCH (08:40)
[2018-11-22] MEDS: SERTRALINE 25 MG TAB PO SCH (08:42)
[2018-11-22] MEDS: ATENOLOL 25 MG TAB PO SCH (08:50)
--- NOTE | 2018-11-22 10:14 | P.PN ---
Subjective Patient is seen in follow-up for end-stage renal disease. He is maintained on peritoneal dialysis. He underwent intramedullary nailing of right intertrochanteric femur fracture on November 19. Currently resting in bed. He was transferred to the ICU yesterday due to hypotension. Blood pressure better today. He is more awake and alert. No issues with peritoneal dialysis. Vital signs are stable. General: The patient appeared well nourished and normally developed. HEENT: Head exam is unremarkable. Neck is without jugular venous distension. LUNGS: Lungs are clear to auscultation and percussion. Breath sounds decreased. HEART: Rate and Rhythm are regular. First and second heart sounds normal. No murmurs, rubs or gallops. ABDOMEN: Abdominal exam reveals normal bowel sounds. Non-tender and non- distended. No evidence of peritonitis. EXTREMITITES: No clubbing, cyanosis, or edema. Objective - Vital Signs Vital signs: Vital Signs Temp 97.4 F L 11/22/18 08:00 Pulse 56 L 11/22/18 08:00 Resp 10 L 11/22/18 08:00 BP 89/49 11/22/18 08:00 Pulse Ox 97 11/22/18 08:00 Intake & Output 11/21/18 11/22/18 11/22/18 18:59 06:59 18:59 Intake Total 1620 660 100 Output Total 0 2100 Balance 1620 660 -2000 Intake: IV 20 450 100 Invasive Line 4 20 Sodium Chloride 0.9% 1, 450 100 000 ml @ 50 mls/hr IV . Q20H [facility] Rx#:[id number] Intake, IV Titration 1000 200 Amount Lactated Ringers 500 ml @ 500 999 mls/hr IV .Q31M [facility] Rx#:[id number] Sodium Chloride 0.9% 1, 500 200 000 ml @ 50 mls/hr IV . Q20H [facility] Rx#:[id number] Oral 240 10 Blood Product 310 Rc As-1 Unit 310 [id number] Other 50 Rc As-1 Unit 50 [id number] Output: Drainage 2100 Abdomen 2100 Urine 0 0 Other: Voiding Method CAPD CAPD CAPD - Labs CBC & Chem 7: 11/22/18 04:35 11/22/18 04:35 Labs: Abnormal Lab Results - Last 24 Hours (Table) 01/11/21/18 11/21/18 Range/Units 17:53 14:28 19:42 WBC 12.1 H (3.8-10.6) k/uL RBC 2.49 L (4.30-5.90) m/uL Hgb 8.1 L (13.0-17.5) gm/dL Hct 24.6 L (39.0-53.0) % RDW 17.6 H (11.5-15.5) % Neutrophils # 10.1 H (1.3-7.7) k/uL Lymphocytes # 0.5 L (1.0-4.8) k/uL ABG pH 7.34 L (7.35-7.45) ABG Total CO2 26 H (19-24) mmol/L Sodium (137-145) mmol/L Chloride (98-107) mmol/L Carbon Dioxide (22-30) mmol/L BUN (9-20) mg/dL Creatinine (0.66-1.25) mg/dL Glucose (74-99) mg/dL POC Glucose (mg/dL) (75-99) mg/dL Calcium (8.4-10.2) mg/dL Phosphorus (2.5-4.5) mg/dL ALT (21-72) U/L Total Protein (6.3-8.2) g/dL Albumin (3.5-5.0) g/dL Crossmatch See Detail 11/21/18 11/21/18 11/21/18 Range/Units 19:42 19:51 23:08 WBC (3.8-10.6) k/uL RBC (4.30-5.90) m/uL Hgb (13.0-17.5) gm/dL Hct (39.0-53.0) % RDW (11.5-15.5) % Neutrophils # (1.3-7.7) k/uL Lymphocytes # (1.0-4.8) k/uL ABG pH (7.35-7.45) ABG Total CO2 (19-24) mmol/L Sodium 133 L (137-145) mmol/L Chloride 97 L (98-107) mmol/L Carbon Dioxide 21 L (22-30) mmol/L BUN 84 H (9-20) mg/dL Creatinine 10.18 H* (0.66-1.25) mg/dL Glucose 154 H (74-99) mg/dL POC Glucose (mg/dL) 176 H 133 H (75-99) mg/dL Calcium 7.8 L (8.4-10.2) mg/dL Phosphorus (2.5-4.5) mg/dL ALT 20 L (21-72) U/L Total Protein 4.8 L (6.3-8.2) g/dL Albumin 2.5 L (3.5-5.0) g/dL Crossmatch 11/22/18 11/22/18 11/22/18 Range/Units 04:35 04:35 08:28 WBC 11.2 H (3.8-10.6) k/uL RBC 2.86 L (4.30-5.90) m/uL Hgb 8.8 L (13.0-17.5) gm/dL Hct 27.6 L (39.0-53.0) % RDW 17.8 H (11.5-15.5) % Neutrophils # 8.8 H (1.3-7.7) k/uL Lymphocytes # 0.5 L (1.0-4.8) k/uL ABG pH (7.35-7.45) ABG Total CO2 (19-24) mmol/L Sodium 135 L (137-145) mmol/L Chloride 96 L (98-107) mmol/L Carbon Dioxide (22-30) mmol/L BUN 86 H (9-20) mg/dL Creatinine 10.18 H* (0.66-1.25) mg/dL Glucose 104 H (74-99) mg/dL POC Glucose (mg/dL) 113 H (75-99) mg/dL Calcium 8.2 L (8.4-10.2) mg/dL Phosphorus 9.4 H* (2.5-4.5) mg/dL ALT (21-72) U/L Total Protein (6.3-8.2) g/dL Albumin (3.5-5.0) g/dL Crossmatch Assessment and Plan Plan: Assessment: 1. End-stage renal disease maintained on peritoneal dialysis. 2. Right intertrochanteric hip fracture secondary to fall status post intramedullary nailing on November 19. 3. Chronic hypotension maintained on midodrine. Better. 4. Chronic kidney disease mineral bone disease maintained on Renvela. 5. Anemia of chronic kidney disease Maintained on Aranesp. 6. Lethargy related to opioids and hypotension. Better. Plan: Maintain PD - 2 L exchanges every 6 hours with 1.5% solution. Avoid opioids. Okay to use Toradol and Tylenol for pain. Maintain normal saline at 50 mL an hour. I will increase the dose of Renvela.
--- NOTE | 2018-11-22 10:24 | P.CNPUL ---
History of Present Illness Consult date: 11/22/18 Requesting physician: Arsen Feng Reason for consult: other Chief complaint: Hypotension, blood loss anemia History of present illness: This is a 72-year-old white male patient of Dr. Girard, who was transferred from [facility] on 11/18/2018 after sustaining a fall in his driveway going out for mail, and patient sustained right hip fracture. On 11/19/2018 patient underwent trochanteric intramedullary nailing of the right intratrochanteric femur fracture. Past medical history is positive for hypertension, hyperlipidemia, coronary artery disease with previous stenting, mild ischemic cardiomyopathy, end-stage renal disease on peritoneal dialysis, carotid artery stenosis status post left endarterectomy, and mitral insufficiency. He did not lose consciousness, did not have dizziness or lightheadedness prior to the fall, and this was a mechanical fall. Postoperative. Patient was noted to be lethargic, and hypoxemic with a pulse ox of 85% on room air. Brain CT showed cerebral atrophy and chronic small vessel ischemia, no acute process. Last night on 11/21/2018 patient was also noted to be hypotensive, she was given IV fluid bolus of 0.9 normal saline of 500 mL, and a unit of blood for a hemoglobin of 7.9. Stat blood gas was done, and hypercapnic respiratory failure was ruled out. Patient did receive a dose of Narcan, narcotic pain medications were discontinued. This morning he seen in the intensive care unit, still somnolent, but more arousable, and he is starting to respond verbally, he denies any distress, she did not require vasopressor support overnight. This morning's labs were reviewed, showed WBC of 11.2, hemoglobin of 8.8, sodium of 135, potassium is 4.6, chloride is 96, B1 of 86 and creatinine of 10.18. Patient is receiving his peritoneal dialysis, 4 times a day. No fever or chills, lactic acid was normal limits at 1.0. Chest x -ray this morning showed some prominence of pulmonary vascular markings, however this was a rotated film, and patient takes shallow breaths. He is in no distress, he is on 2 L of oxygen per nasal cannula with a pulse ox of 97%, afebrile, in sinus mechanism at a rate of 56 BPM. He was started on Midrin at 10 mg 3 times a day per nephrology. Stat blood culture was sent, will obtain a urine and peritoneal fluid culture as well. Her pulmonary symptoms, no cough or congestion, no shortness of breath, no chest pain, no abdominal pain, no nausea or vomiting. Review of Systems All systems: negative Constitutional: Reports lethargy, Reports weakness, Denies chills, Denies fever Eyes: denies blurred vision, denies pain Ears, nose, mouth and throat: Denies headache, Denies sore throat Cardiovascular: Denies chest pain, Denies shortness of breath Respiratory: Denies cough Gastrointestinal: Denies abdominal pain, Denies diarrhea, Denies nausea, Denies vomiting Musculoskeletal: Denies myalgias Integumentary: Denies pruritus, Denies rash Neurological: Denies numbness, Denies weakness Psychiatric: Denies anxiety, Denies depression Endocrine: Denies fatigue, Denies weight change Past Medical History Past Medical History: Atrial Fibrillation, Coronary Artery Disease (CAD), Diabetes Mellitus, Dialysis, Hyperlipidemia, Hypertension, Renal Disease, Thyroid Disorder Additional Past Medical History / Comment(s): PERITONEAL DIALYSIS (CAPD).Hx. cataracts removed bilat 2003 Hx. kidney biopsy 2012 History of Any Multi-Drug Resistant Organisms: None Reported Past Surgical History: Heart Catheterization With Stent Additional Past Surgical History / Comment(s): FIstula left arm. Hx. carotid artery surgery 2005; left carotid endarterectomy Past Anesthesia/Blood Transfusion Reactions: No Reported Reaction Date of Last Stent Placement:: 2011 Past Psychological History: No Psychological Hx Reported Smoking Status: Never smoker Past Alcohol Use History: None Reported Past Drug Use History: None Reported - Past Family History Father Additional Family Medical History / Comment(s): Hx. father "brights disease" age 47 Mom CHF at 81 Brother(s) Family Medical History: Deep Vein Thrombosis (DVT) Medications and Allergies Home Medications Medication Instructions Recorded Confirmed Type Aspirin EC [Ecotrin Low Dose] 81 mg PO DAILY 03/06/17 11/18/18 History Atenolol [Tenormin] 12.5 mg PO QAM 03/06/17 11/18/18 History Atorvastatin [Lipitor] 40 mg PO DAILY 03/06/17 11/18/18 History Gemfibrozil [Lopid] 600 mg PO DAILY 03/06/17 11/18/18 History Gabapentin [Neurontin] 100 mg PO TID 07/12/17 11/18/18 History Midodrine [ProAmatine] 5 mg PO TID 07/12/17 11/18/18 History Polyethylene Glycol 3350 [Miralax] 17 gm PO DAILY PRN 07/12/17 11/18/18 History Sodium Bicarbonate Tab 650 mg PO BID 07/12/17 11/18/18 History HYDROcodone/APAP 7.5-325MG [[place] 1 tab PO BID 06/03/18 11/18/18 History 7.5-325] Lanthanum Carbonate 1,000 mg PO TID-W/MEALS 11/18/18 11/18/18 History Methocarbamol [Robaxin] 750 mg PO TID PRN 11/18/18 11/18/18 History Multivitamins, Thera [Multivitamin 1 tab PO DAILY 11/18/18 11/18/18 History (formulary)] Omeprazole [PriLOSEC] 20 mg PO DAILY 11/18/18 11/18/18 History Sertraline [Zoloft] 25 mg PO DAILY 11/18/18 11/18/18 History Sevelamer [Renvela] 800 mg PO BID 11/18/18 11/18/18 History Tamsulosin [Flomax] 0.4 mg PO DAILY 11/18/18 11/18/18 History Velphpro 2500mg (500mg Elemental 1 tab PO DAILY 11/18/18 11/18/18 History Iron) Tablet Allergies Allergy/AdvReac Type Severity Reaction Status Date / Time hydromorphone [From Dilaudid] Allergy Hallucinati Verified 11/18/18 18:24 ons garlic AdvReac Diarrhea Verified 11/18/18 18:24 prednisone AdvReac Increased Verified 11/18/18 18:24 Blood Pressure sour cream AdvReac Diarrhea Uncoded 11/18/18 17:35 Physical Exam Vitals: Vital Signs Temp Pulse Pulse Resp BP BP Pulse Ox 11/22/18 08:00 97.4 F L 56 L 10 L 89/49 97 11/22/18 07:30 57 L 22 96/56 98 11/22/18 07:00 62 12 98/55 98 11/22/18 06:32 97.8 F 64 17 101/55 97 11/22/18 06:30 61 9 L 101/55 98 11/22/18 06:00 63 14 99/50 97 11/22/18 05:30 61 10 L 105/62 97 11/22/18 05:00 61 7 L 104/60 96 11/22/18 04:30 66 16 101/68 97 11/22/18 04:00 97.0 F L 57 L 14 83/57 94 L 11/22/18 03:53 16 11/22/18 03:30 60 12 84/52 94 L 11/22/18 03:00 57 L 11 L 81/58 97 11/22/18 02:30 58 L 11 L 84/66 96 11/22/18 02:00 61 16 86/53 97 11/22/18 01:30 98.1 F 65 11 L 103/56 100 11/22/18 01:00 66 12 108/64 98 11/22/18 00:00 67 16 108/71 98 11/21/18 23:30 16 11/21/18 23:23 97.6 F 65 10 L 106/67 98 11/21/18 22:47 69/44 11/21/18 22:41 67/42 11/21/18 22:37 75/46 11/21/18 22:27 70/43 11/21/18 22:16 81/48 11/21/18 22:03 96/56 11/21/18 21:33 97.3 F L 68 14 103/66 11/21/18 20:19 116/70 11/21/18 20:16 108/66 11/21/18 20:09 98 11/21/18 19:48 10 L 11/21/18 19:42 72/32 11/21/18 19:33 67/44 11/21/18 19:23 68/43 11/21/18 19:14 72/47 11/21/18 19:03 83/48 11/21/18 18:41 97.5 F L 65 16 92/59 11/21/18 17:43 97.8 F 65 16 89/50 97 11/21/18 17:41 97.8 F 63 16 89/50 98 11/21/18 17:13 97.9 F 14 93/56 11/21/18 17:03 98.0 F 63 12 91/52 100 11/21/18 16:59 98.0 F 65 12 91/52 100 11/21/18 15:07 70 105/52 11/21/18 14:41 69 101/67 11/21/18 14:30 12 11/21/18 14:27 63 91/47 11/21/18 14:16 59 L 79/46 11/21/18 14:11 97.6 F 65 12 85/46 96 11/21/18 14:00 98.2 F 68 17 79/48 98 11/21/18 10:55 97.7 F 81 17 115/59 100 11/21/18 10:51 81 115/59 11/21/18 10:32 83 16 117/62 100 11/21/18 10:26 78 12 96/55 100 11/21/18 10:18 12 Intake and Output 11/21/18 11/22/18 11/22/18 22:59 06:59 14:59 Intake Total 1580 450 100 Output Total 0 0 Balance 1580 450 100 Intake: IV 10 450 100 Invasive Line 4 10 Sodium Chloride 0.9% 1, 450 100 000 ml @ 50 mls/hr IV . Q20H [facility] Rx#:[id number] Intake, IV Titration 1200 Amount Lactated Ringers 500 ml @ 500 999 mls/hr IV .Q31M [facility] Rx#:[id number] Sodium Chloride 0.9% 1, 700 000 ml @ 50 mls/hr IV . Q20H [facility] Rx#:[id number] Oral 10 Blood Product 310 Rc As-1 Unit 310 [id number] Other 50 Rc As-1 Unit 50 [id number] Output: Urine 0 0 Other: Voiding Method CAPD CAPD GENERAL EXAM: Somnolent, but arousable and comfortable 72-year-old white male patient currently on 2 L of oxygen per nasal cannula with a pulse ox of 97%, comfortable in no apparent distress. HEAD: Normocephalic/atraumatic. EYES: Normal reaction of pupils, equal size. Conjunctiva pink, sclera white. NOSE: Clear with pink turbinates. THROAT: No erythema or exudates. NECK: No masses, no JVD, no thyroid enlargement, no adenopathy. CHEST: No chest wall deformity. Symmetrical expansion. LUNGS: Equal air entry with no crackles, wheeze, rhonchi or dullness. CVS: Regular rate and rhythm, normal S1 and S2, no gallops, no murmurs, no rubs ABDOMEN: Soft, nontender. No hepatosplenomegaly, normal bowel sounds, no guarding or rigidity. EXTREMITIES: No clubbing, no edema, no cyanosis, 2+ pulses and upper and lower extremities. Right hip incision is covered with surgical dressing, clean dry and intact, no calf tenderness, no numbness or tingling MUSCULOSKELETAL: Muscle strength and tone normal. SPINE: No scoliosis or deformity SKIN: No rashes CENTRAL NERVOUS SYSTEM: Somnolent, but arousable, oriented 2, to person and place. No focal deficits, tone is normal in all 4 extremities. Results - Laboratory Findings CBC and BMP: 11/22/18 04:35 11/22/18 04:35 ABG ABG pH 7.34 (7.35-7.45) L 11/21/18 14:28 ABG pCO2 45 mmHg (35-45) 11/21/18 14:28 ABG pO2 85 mmHg (83-108) 11/21/18 14:28 ABG O2 Saturation 96.0 % (94-97) 11/21/18 14:28 PT/INR, D-dimer PT 9.9 sec (9.0-12.0) 11/18/18 17:53 INR 0.9 (<1.2) 11/18/18 17:53 Abnormal lab findings: Abnormal Labs 11/18/18 11/18/18 11/18/18 17:53 17:53 17:53 WBC 13.0 H RBC 3.15 L Hgb 10.0 L Hct 30.7 L MCV RDW 17.4 H Neutrophils # 11.1 H Neutrophils # (Manual) Lymphocytes # 0.5 L Monocytes # ABG pH ABG Total CO2 Sodium Chloride Carbon Dioxide BUN 75 H Creatinine 9.78 H* Glucose POC Glucose (mg/dL) Calcium Phosphorus ALT Total Protein 6.0 L Albumin 3.4 L Crossmatch See Detail 11/19/18 11/21/18 11/21/18 21:24 06:31 06:31 WBC 15.7 H 13.2 H RBC 3.19 L 2.55 L Hgb 10.2 L 7.9 L D Hct 32.6 L 25.2 L MCV 102.0 H RDW 17.4 H 17.3 H Neutrophils # 10.5 H Neutrophils # (Manual) 12.40 H Lymphocytes # 0.6 L Monocytes # 1.2 H ABG pH ABG Total CO2 Sodium Chloride Carbon Dioxide BUN 88 H Creatinine 10.89 H* Glucose 145 H POC Glucose (mg/dL) Calcium 8.1 L Phosphorus ALT Total Protein Albumin Crossmatch 11/21/18 11/21/18 11/21/18 14:28 19:42 19:42 WBC 12.1 H RBC 2.49 L Hgb 8.1 L Hct 24.6 L MCV RDW 17.6 H Neutrophils # 10.1 H Neutrophils # (Manual) Lymphocytes # 0.5 L Monocytes # ABG pH 7.34 L ABG Total CO2 26 H Sodium 133 L Chloride 97 L Carbon Dioxide 21 L BUN 84 H Creatinine 10.18 H* Glucose 154 H POC Glucose (mg/dL) Calcium 7.8 L Phosphorus ALT 20 L Total Protein 4.8 L Albumin 2.5 L Crossmatch 11/21/18 11/21/18 11/22/18 19:51 23:08 04:35 WBC RBC Hgb Hct MCV RDW Neutrophils # Neutrophils # (Manual) Lymphocytes # Monocytes # ABG pH ABG Total CO2 Sodium 135 L Chloride 96 L Carbon Dioxide BUN 86 H Creatinine 10.18 H* Glucose 104 H POC Glucose (mg/dL) 176 H 133 H Calcium 8.2 L Phosphorus 9.4 H* ALT Total Protein Albumin Crossmatch 11/22/18 11/22/18 04:35 08:28 WBC 11.2 H RBC 2.86 L Hgb 8.8 L Hct 27.6 L MCV RDW 17.8 H Neutrophils # 8.8 H Neutrophils # (Manual) Lymphocytes # 0.5 L Monocytes # ABG pH ABG Total CO2 Sodium Chloride Carbon Dioxide BUN Creatinine Glucose POC Glucose (mg/dL) 113 H Calcium Phosphorus ALT Total Protein Albumin Crossmatch - Diagnostic Findings Chest x-ray: report reviewed, image reviewed Additional studies: CT brain results reviewed Assessment and Plan Plan: Assessment: #1. Hypotension, possibly related to narcotic analgesics, and hypovolemia, rule out sepsis. Patient was given 500 mL fluid bolus, a dose of Narcan, and a unit of packed red blood cells. Blood cultures were sent to #2. Acute postoperative blood loss anemia, an expected outcome of surgery. Hemoglobin is 7.9, symptomatic, transfused with 1 unit of PRBC #3. Lethargy, likely related to hypotension, and narcotic analgesics, improved #4. Rule out sepsis #5. Right hip intratrochanteric fracture, after a mechanical fall, status post right IT hip repair, postop day 3 #6. End-stage renal disease, on peritoneal dialysis #7. History of coronary artery disease with previous stenting #8. History of mild ischemic cardiomyopathy with the EF of 45-50%, and mitral valve insufficiency #9. History of hypertension, hyperlipidemia #10. Diabetes mellitus type 2 #11. History of carotid artery stenosis status post left endarterectomy Plan: Patient has been fluid resuscitated, was given a unit of packed red blood cells , this morning's hemoglobin is 8.8, patient is more arousable and is starting to verbally respond. No difficulty breathing, no cough or congestion, today's chest x-ray shows mild prominence of pulmonary vascular markings suggestive of mild fluid overload, medically patient is maintaining good oxygenation, denies any pulmonary symptoms, we'll continue to follow, encourage deep breathing and coughing, senna spirometer use, narcotics have been discontinued, pain is reasonably well controlled at this time, we will send blood cultures, peritoneal fluid culture, and urine culture to rule out sepsis, we will place the patient on empiric antibiotics in the form of Zosyn. Continue to monitor in the ICU, we'll possibly transfer the patient out to the floor this afternoon if he continues to do well and becomes more awake. I performed a history & physical examination of the patient and discussed their management with my nurse practitioner, Giovanna Banuelos. I reviewed the nurse practitioner's note and agree with the documented findings and plan of care. Lung sounds are positive for clear breath sounds. The findings and the impression was discussed with the patient. I attest to the documentation by the nurse practitioner. Time with Patient: Greater than 30
[2018-11-22] MEDS: PIPERACILLIN-TAZOBACTAM 3.375 GM in SODIUM CHLORIDE 0.9% 100 ML IVPB SCH ×2 (11:57→20:32)
[2018-11-22] MEDS: FENOFIBRATE 160 MG TAB PO SCH (11:57)
[2018-11-22 12:18] LABS: Glucose,Whole Blood 111 mg/dL (75-99)
[2018-11-22] MEDS: SODIUM CHLORIDE 0.9% 1,000 ML IV SCH (15:57)
--- NOTE | 2018-11-22 16:10 | P.PN ---
Subjective Progress Note Date: 11/22/18 Principal diagnosis: Status post IM nail right hip Patient evaluated to bedside today. Patient continues to be more alert. Narcotic medication has been halted. Objective - Vital Signs Vital signs: Vital Signs Temp 97.7 F 11/22/18 11:30 Pulse 62 11/22/18 14:00 Resp 6 L 11/22/18 14:00 BP 100/67 11/22/18 14:00 Pulse Ox 89 L 11/22/18 14:00 Intake & Output 11/21/18 11/22/18 11/22/18 18:59 06:59 18:59 Intake Total 1620 660 350 Output Total 0 2100 Balance 1620 660 -1750 Intake: IV 20 450 350 Invasive Line 4 20 Sodium Chloride 0.9% 1, 450 350 000 ml @ 50 mls/hr IV . Q20H [facility] Rx#:[id number] Intake, IV Titration 1000 200 Amount Lactated Ringers 500 ml @ 500 999 mls/hr IV .Q31M [facility] Rx#:[id number] Sodium Chloride 0.9% 1, 500 200 000 ml @ 50 mls/hr IV . Q20H [facility] Rx#:[id number] Oral 240 10 Blood Product 310 Rc As-1 Unit 310 [id number] Other 50 Rc As-1 Unit 50 [id number] Output: Drainage 2100 Abdomen 2100 Urine 0 0 Other: Voiding Method CAPD CAPD CAPD - Exam Right lower extremity: Incisions are clean, dry and intact. Minimal soft tissue swelling present. Distal neurovascular exam is intact. - Labs CBC & Chem 7: 11/22/18 04:35 11/22/18 04:35 Labs: Abnormal Lab Results - Last 24 Hours (Table) 11/18/18 11/21/18 11/21/18 Range/Units 17:53 19:42 19:42 WBC 12.1 H (3.8-10.6) k/uL RBC 2.49 L (4.30-5.90) m/uL Hgb 8.1 L (13.0-17.5) gm/dL Hct 24.6 L (39.0-53.0) % RDW 17.6 H (11.5-15.5) % Neutrophils # 10.1 H (1.3-7.7) k/uL Lymphocytes # 0.5 L (1.0-4.8) k/uL Sodium 133 L (137-145) mmol/L Chloride 97 L (98-107) mmol/L Carbon Dioxide 21 L (22-30) mmol/L BUN 84 H (9-20) mg/dL Creatinine 10.18 H* (0.66-1.25) mg/dL Glucose 154 H (74-99) mg/dL POC Glucose (mg/dL) (75-99) mg/dL Calcium 7.8 L (8.4-10.2) mg/dL Phosphorus (2.5-4.5) mg/dL ALT 20 L (21-72) U/L Total Protein 4.8 L (6.3-8.2) g/dL Albumin 2.5 L (3.5-5.0) g/dL Crossmatch See Detail 11/21/18 11/21/18 11/22/18 Range/Units 19:51 23:08 04:35 WBC (3.8-10.6) k/uL RBC (4.30-5.90) m/uL Hgb (13.0-17.5) gm/dL Hct (39.0-53.0) % RDW (11.5-15.5) % Neutrophils # (1.3-7.7) k/uL Lymphocytes # (1.0-4.8) k/uL Sodium 135 L (137-145) mmol/L Chloride 96 L (98-107) mmol/L Carbon Dioxide (22-30) mmol/L BUN 86 H (9-20) mg/dL Creatinine 10.18 H* (0.66-1.25) mg/dL Glucose 104 H (74-99) mg/dL POC Glucose (mg/dL) 176 H 133 H (75-99) mg/dL Calcium 8.2 L (8.4-10.2) mg/dL Phosphorus 9.4 H* (2.5-4.5) mg/dL ALT (21-72) U/L Total Protein (6.3-8.2) g/dL Albumin (3.5-5.0) g/dL Crossmatch 11/22/18 11/22/18 11/22/18 Range/Units 04:35 08:28 12:16 WBC 11.2 H (3.8-10.6) k/uL RBC 2.86 L (4.30-5.90) m/uL Hgb 8.8 L (13.0-17.5) gm/dL Hct 27.6 L (39.0-53.0) % RDW 17.8 H (11.5-15.5) % Neutrophils # 8.8 H (1.3-7.7) k/uL Lymphocytes # 0.5 L (1.0-4.8) k/uL Sodium (137-145) mmol/L Chloride (98-107) mmol/L Carbon Dioxide (22-30) mmol/L BUN (9-20) mg/dL Creatinine (0.66-1.25) mg/dL Glucose (74-99) mg/dL POC Glucose (mg/dL) 113 H 111 H (75-99) mg/dL Calcium (8.4-10.2) mg/dL Phosphorus (2.5-4.5) mg/dL ALT (21-72) U/L Total Protein (6.3-8.2) g/dL Albumin (3.5-5.0) g/dL Crossmatch Assessment and Plan Plan: Assessment: Status post right intramedullary nail intertrochanteric femur fracture Plan: Continue weight-bear as tolerated with a history Pain control, hold narcotics GI and DVT prophylaxis Other medical specialty recommendations Discharge planning: Plan for discharge to rehab when stable Time with Patient: Less than 30
[2018-11-22 17:19] LABS: Glucose,Whole Blood 147 mg/dL (75-99)
[2018-11-22 20:14] LABS: Glucose,Whole Blood 169 mg/dL (75-99)
[2018-11-22] MEDS: SENNOSIDES-DOCUSATE SODIUM 1 EACH TAB PO SCH (20:23)
[2018-11-22] MEDS: ATORVASTATIN 40 MG TAB PO SCH (20:24)
[2018-11-23] MEDS: KETOROLAC 30 MG/ML 1 ML VIAL IVP SCH ×4 (00:36→17:50)
[2018-11-23] MEDS: ACETAMINOPHEN TAB 325 MG TAB PO SCH ×4 (03:06→20:23)
[2018-11-23 05:10] LABS: Anisocytosis Slight; Basophils % (A) 0 %; Eosinophils # (A) 0.5 k/uL (0-0.7); Eosinophils % (A) 4 %; HCT 25.4 % (39.0-53.0); HGB 8.1 gm/dL (13.0-17.5); Hypochromasia Slight; Lymphocytes # (A) 0.3 k/uL (1.0-4.8); Lymphocytes % (A) 3 %; MCH 31.4 pg (25.0-35.0); MCV 97.9 fL (80.0-100.0); Macrocytosis Slight; Mean Platelet Volume 7.7; Monocytes # (A) 0.7 k/uL (0-1.0); Monocytes % (A) 6 %; Neutrophils # (A) 9.9 k/uL (1.3-7.7); Neutrophils % (A) 84 %; Platelet Count 198 k/uL (150-450); RBC 2.59 m/uL (4.30-5.90); WBC 11.8 k/uL (3.8-10.6)
[2018-11-23] MEDS: DIALYSIS (PERIT 1.5%) 2,000 ML 30 G/2,000 ML BAG INTRAPERIT SCH ×4 (05:21→21:21)
[2018-11-23] MEDS: SODIUM CHLORIDE 0.9% 1,000 ML IV SCH (05:21)
[2018-11-23 05:41] LABS: Calcium 7.9 mg/dL (8.4-10.2); Magnesium 2.3 mg/dL (1.6-2.3); Phosphorus 8.7 mg/dL (2.5-4.5); Potassium 4.6 mmol/L (3.5-5.1)
[2018-11-23 07:00] LABS: Glucose,Whole Blood 139 mg/dL (75-99)
[2018-11-23] MEDS: INSULIN ASPART 100 UNIT/ML 1 ML 10 ML VIAL SQ SCH ×4 (07:06→21:05)
[2018-11-23] MEDS: ATENOLOL 25 MG TAB PO SCH (07:47)
--- NOTE | 2018-11-23 07:48 | P.PN ---
Subjective Patient is seen in follow-up for end-stage renal disease. He is maintained on peritoneal dialysis. He underwent intramedullary nailing of right intertrochanteric femur fracture on November 19. Currently resting in bed. He was transferred to the ICU on November 21 due to hypotension. Blood pressure is stable. Patient's blood pressure tends to run low in the systolic 90s to low 100s as outpatient. No issues with peritoneal dialysis. Vital signs are stable. General: The patient appeared well nourished and normally developed. HEENT: Head exam is unremarkable. Neck is without jugular venous distension. LUNGS: Lungs are clear to auscultation and percussion. Breath sounds decreased. HEART: Rate and Rhythm are regular. First and second heart sounds normal. No murmurs, rubs or gallops. ABDOMEN: Abdominal exam reveals normal bowel sounds. Non-tender and non- distended. No evidence of peritonitis. EXTREMITITES: No clubbing, cyanosis, or edema. Objective - Vital Signs Vital signs: Vital Signs Temp 98.4 F 11/23/18 05:37 Pulse 69 11/23/18 07:00 Resp 12 11/23/18 07:00 BP 84/51 11/23/18 07:00 Pulse Ox 93 L 11/23/18 07:03 Intake & Output 11/22/18 11/23/18 11/23/18 18:59 06:59 18:59 Intake Total 600 650 50 Output Total 2100 0 0 Balance -1500 650 50 Weight 78.5 kg Intake: IV 600 650 50 Piperacillin-Tazobactam 3 100 .375 gm In Sodium Chloride 0.9% 100 ml @ 25 mls/hr IVPB Q12HR [facility] Rx #:[id number] Sodium Chloride 0.9% 1, 600 550 50 000 ml @ 50 mls/hr IV . Q20H [facility] Rx#:[id number] Output: Drainage 2100 Abdomen 2100 Urine 0 0 0 Other: Voiding Method CAPD CAPD # Voids 0 0 - Labs CBC & Chem 7: 11/23/18 04:13 11/23/18 04:13 Labs: Abnormal Lab Results - Last 24 Hours (Table) 11/22/18 11/22/18 11/22/18 Range/Units 08:28 12:16 17:17 WBC (3.8-10.6) k/uL RBC (4.30-5.90) m/uL Hgb (13.0-17.5) gm/dL Hct (39.0-53.0) % RDW (11.5-15.5) % Neutrophils # (1.3-7.7) k/uL Lymphocytes # (1.0-4.8) k/uL Sodium (137-145) mmol/L Chloride (98-107) mmol/L BUN (9-20) mg/dL Creatinine (0.66-1.25) mg/dL Glucose (74-99) mg/dL POC Glucose (mg/dL) 113 H 111 H 147 H (75-99) mg/dL Calcium (8.4-10.2) mg/dL Phosphorus (2.5-4.5) mg/dL 11/22/18 11/23/18 11/23/18 Range/Units 20:13 04:13 04:13 WBC 11.8 H (3.8-10.6) k/uL RBC 2.59 L (4.30-5.90) m/uL Hgb 8.1 L (13.0-17.5) gm/dL Hct 25.4 L (39.0-53.0) % RDW 18.0 H (11.5-15.5) % Neutrophils # 9.9 H (1.3-7.7) k/uL Lymphocytes # 0.3 L (1.0-4.8) k/uL Sodium 132 L (137-145) mmol/L Chloride 95 L (98-107) mmol/L BUN 79 H (9-20) mg/dL Creatinine 9.61 H* (0.66-1.25) mg/dL Glucose 112 H (74-99) mg/dL POC Glucose (mg/dL) 169 H (75-99) mg/dL Calcium 7.9 L (8.4-10.2) mg/dL Phosphorus 8.7 H (2.5-4.5) mg/dL 11/23/18 Range/Units 06:59 WBC (3.8-10.6) k/uL RBC (4.30-5.90) m/uL Hgb (13.0-17.5) gm/dL Hct (39.0-53.0) % RDW (11.5-15.5) % Neutrophils # (1.3-7.7) k/uL Lymphocytes # (1.0-4.8) k/uL Sodium (137-145) mmol/L Chloride (98-107) mmol/L BUN (9-20) mg/dL Creatinine (0.66-1.25) mg/dL Glucose (74-99) mg/dL POC Glucose (mg/dL) 139 H (75-99) mg/dL Calcium (8.4-10.2) mg/dL Phosphorus (2.5-4.5) mg/dL Microbiology - Last 24 Hours (Table) 11/22/18 14:00 Gram Stain - Preliminary Peritoneal Fluid Body Fluid Culture - Preliminary Assessment and Plan Plan: Assessment: 1. End-stage renal disease maintained on peritoneal dialysis. 2. Right intertrochanteric hip fracture secondary to fall status post intramedullary nailing on November 19. 3. Chronic hypotension maintained on midodrine. Stable. 4. Chronic kidney disease mineral bone disease maintained on Renvela. 5. Anemia of chronic kidney disease Maintained on Aranesp. 6. Lethargy related to opioids and hypotension. Better. Plan: Maintain PD - 2 L exchanges every 6 hours with 1.5% solution. Avoid opioids. Okay to use Toradol and Tylenol for pain. Maintain normal saline at 50 mL an hour. Dose of Renvela increased on November 22. Phosphorus trending down.
[2018-11-23] MEDS: SODIUM BICARBONATE TAB 650 MG TAB PO SCH ×3 (08:03→20:29)
[2018-11-23] MEDS: PIPERACILLIN-TAZOBACTAM 3.375 GM in SODIUM CHLORIDE 0.9% 100 ML IVPB SCH ×2 (08:03→20:27)
[2018-11-23] MEDS: ENOXAPARIN 30 MG/0.3 ML SYRINGE SQ SCH (08:03)
[2018-11-23] MEDS: SEVELAMER 800 MG TAB PO SCH ×4 (08:04→17:36)
[2018-11-23] MEDS: TAMSULOSIN 0.4 MG CAP.ER.24H PO SCH ×2 (08:04→09:28)
[2018-11-23] MEDS: PANTOPRAZOLE 40 MG TABLET PO SCH ×2 (08:04→09:27)
[2018-11-23] MEDS: MIDODRINE 5 MG TAB PO SCH ×4 (08:04→17:50)
[2018-11-23] MEDS: MULTIVITAMINS, THERA 1 EACH TAB PO SCH ×2 (08:04→13:33)
[2018-11-23] MEDS: SERTRALINE 25 MG TAB PO SCH ×2 (08:07→09:28)
[2018-11-23] MEDS: FENOFIBRATE 160 MG TAB PO SCH ×2 (08:07→09:28)
[2018-11-23 10:08] LABS: ABG Base Excess -0.2 mmol/L; ABG HCO3 26 mmol/L (21-25); ABG Oxygen Saturation 97.8 % (94-97); ABG PCO2 49 mmHg (35-45); ABG PH 7.33 (7.35-7.45); ABG PO2 98 mmHg (83-108); ABG TCO2 27 mmol/L (19-24)
--- NOTE | 2018-11-23 11:31 | CT ---
EXAMINATION TYPE: CT brain wo con DATE OF EXAM: 11/23/2018 COMPARISON: 11/20/2018 INDICATION: altered mental status DLP: 1095.4 mGycm, Automated exposure control for dose reduction was used. CONTRAST: None CT of the brain is performed utilizing 3 mm thick sections through the posterior fossa and 3 mm thick sections through the remaining calvarium. Study is not performed within 24 hours of arrival to the hospital. No abnormal hyperdensity is present to suggest an acute intracranial hemorrhage. No mass lesion is evident. No acute infarcts are evident. Mild periventricular white matter hypodensity is present, likely on th e basis of chronic white matter ischemic change. Ventricles and sulci are slightly prominent for the patient age. Paranasal sinuses and mastoid air cells within the [id number] are clear. IMPRESSIONS: 1. Mild age-related atrophy with chronic appearing periventricular white matter ischemic type pardo es. Exam appears stable from comparison.
[2018-11-23 12:03] LABS: Glucose,Whole Blood 118 mg/dL (75-99)
--- NOTE | 2018-11-23 12:37 | P.PN ---
Subjective Progress Note Date: 11/23/18 Principal diagnosis: Hypotension secondary to narcotics, analgesics, hypovolemia, possible sepsis. This is a 72-year-old white male patient of Dr. Girard, who was transferred from [facility] on 11/18/2018 after sustaining a fall in his driveway going out for mail, and patient sustained right hip fracture. On 11/19 patient underwent trochanteric intramedullary nailing of the right intratrochanteric femur fracture. Past medical history is positive for hypertension, hyperlipidemia, coronary artery disease with previous stenting, mild ischemic cardiomyopathy, end-stage renal disease on peritoneal dialysis, carotid artery stenosis status post left endarterectomy, and mitral insufficiency. He did not lose consciousness, did not have dizziness or lightheadedness prior to the fall, and this was a mechanical fall. Postoperative. Patient was noted to be lethargic, and hypoxemic with a pulse ox of 85% on room air. Brain CT showed cerebral atrophy and chronic small vessel ischemia, no acute process. Last night on 11/21/2018 patient was also noted to be hypotensive, she was given IV fluid bolus of 0.9 normal saline of 500 mL, and a unit of blood for a hemoglobin of 7.9. Stat blood gas was done, and hypercapnic respiratory failure was ruled out. Patient did receive a dose of Narcan, narcotic pain medications were discontinued. This morning he seen in the intensive care unit, still somnolent, but more arousable, and he is starting to respond verbally, he denies any distress, she did not require vasopressor support overnight. This morning's labs were reviewed, showed WBC of 11.2, hemoglobin of 8.8, sodium of 135, potassium is 4.6, chloride is 96, B1 of 86 and creatinine of 10.18. Patient is receiving his peritoneal dialysis, 4 times a day. No fever or chills, lactic acid was normal limits at 1.0. Chest x -ray this morning showed some prominence of pulmonary vascular markings, however this was a rotated film, and patient takes shallow breaths. He is in no distress, he is on 2 L of oxygen per nasal cannula with a pulse ox of 97%, afebrile, in sinus mechanism at a rate of 56 BPM. He was started on Midrin at 10 mg 3 times a day per nephrology. Stat blood culture was sent, will obtain a urine and peritoneal fluid culture as well. Her pulmonary symptoms, no cough or congestion, no shortness of breath, no chest pain, no abdominal pain, no nausea or vomiting. Patient was reevaluated today on 11/23/2018, remains in the ICU, he is hemodynamically stable, not in any form of respiratory distress, however he seems to be quite lethargic, and confused. ABG is nondiagnostic. Ammonia level is relatively within the normal range. Sugars are normal. All his labs are normal except renal profile which is chronic finding. CT of the brain was ordered. It showed no evidence of CVA, mostly atrophy changes, and nothing acute. ABG showed a pO2 of 98 pCO2 of 49 pH of 7.33. His basic metabolic profile is relatively normal. CBC showed a WBC count of 11.8 hemoglobin of 8.1. Peritoneal fluid Gram stain is negative. Cultures are pending. Considering the lethargy noted, and considering the patient is encephalopathic, hence I will keep the patient in the ICU today, no clear-cut explanation to his mental status change except for the fact that the patient have what looks like a metabolic encephalopathy. Some of the medications will be discontinued including narcotics, and I will discontinue his Zoloft. Objective - Vital Signs Vital signs: Vital Signs Temp 98 F 11/23/18 08:00 Pulse 64 11/23/18 11:30 Resp 17 11/23/18 11:30 BP 85/56 11/23/18 11:30 Pulse Ox 95 11/23/18 11:30 Intake & Output 11/22/18 11/23/18 11/23/18 18:59 06:59 18:59 Intake Total 600 650 150 Output Total 2100 0 0 Balance -1500 650 150 Weight 78.5 kg Intake: IV 600 650 150 Piperacillin-Tazobactam 3 100 100 .375 gm In Sodium Chloride 0.9% 100 ml @ 25 mls/hr IVPB Q12HR [facility] Rx #:[id number] Sodium Chloride 0.9% 1, 600 550 50 000 ml @ 50 mls/hr IV . Q20H [facility] Rx#:[id number] Output: Drainage 2100 Abdomen 2100 Urine 0 0 0 Other: Voiding Method CAPD CAPD CAPD # Voids 0 0 - Exam Physical Exam: Revealed a 72-year-old white male, frail looking, chronically ill , weak, in no form of respiratory distress. Head: Atraumatic, normocephalic. HEENT:[Neck is supple.] [No neck masses.] [No thyromegaly.] [No JVD.] Chest: [Clear throughout, no crackles, no rhonchi, no wheezes.] Cardiac Exam: [Normal S1 and S2, no S3 gallop, no murmur.] Abdomen: [Soft, nontender, no megaly, no rebound, no guarding, normal bowel sounds.] Extremities: [No clubbing, no edema, no cyanosis.] Right hip incision is covered with surgical dressing, clean and dry. No tenderness. Neurological Exam: Lethargic, arousable, follows simple instructions, but confused. Generally weak. - Labs CBC & Chem 7: 11/23/18 04:13 11/23/18 04:13 Labs: Abnormal Lab Results - Last 24 Hours (Table) 11/22/18 11/22/18 11/23/18 Range/Units 17:17 20:13 04:13 WBC (3.8-10.6) k/uL RBC (4.30-5.90) m/uL Hgb (13.0-17.5) gm/dL Hct (39.0-53.0) % RDW (11.5-15.5) % Neutrophils # (1.3-7.7) k/uL Lymphocytes # (1.0-4.8) k/uL ABG pH (7.35-7.45) ABG pCO2 (35-45) mmHg ABG HCO3 (21-25) mmol/L ABG Total CO2 (19-24) mmol/L ABG O2 Saturation (94-97) % Sodium 132 L (137-145) mmol/L Chloride 95 L (98-107) mmol/L BUN 79 H (9-20) mg/dL Creatinine 9.61 H* (0.66-1.25) mg/dL Glucose 112 H (74-99) mg/dL POC Glucose (mg/dL) 147 H 169 H (75-99) mg/dL Calcium 7.9 L (8.4-10.2) mg/dL Phosphorus 8.7 H (2.5-4.5) mg/dL Ammonia (<30) umol/L 11/23/18 11/23/18 11/23/18 Range/Units 04:13 06:59 10:05 WBC 11.8 H (3.8-10.6) k/uL RBC 2.59 L (4.30-5.90) m/uL Hgb 8.1 L (13.0-17.5) gm/dL Hct 25.4 L (39.0-53.0) % RDW 18.0 H (11.5-15.5) % Neutrophils # 9.9 H (1.3-7.7) k/uL Lymphocytes # 0.3 L (1.0-4.8) k/uL ABG pH 7.33 L (7.35-7.45) ABG pCO2 49 H (35-45) mmHg ABG HCO3 26 H (21-25) mmol/L ABG Total CO2 27 H (19-24) mmol/L ABG O2 Saturation 97.8 H (94-97) % Sodium (137-145) mmol/L Chloride (98-107) mmol/L BUN (9-20) mg/dL Creatinine (0.66-1.25) mg/dL Glucose (74-99) mg/dL POC Glucose (mg/dL) 139 H (75-99) mg/dL Calcium (8.4-10.2) mg/dL Phosphorus (2.5-4.5) mg/dL Ammonia (<30) umol/L 11/23/18 11/23/18 Range/Units 10:06 11:52 WBC (3.8-10.6) k/uL RBC (4.30-5.90) m/uL Hgb (13.0-17.5) gm/dL Hct (39.0-53.0) % RDW (11.5-15.5) % Neutrophils # (1.3-7.7) k/uL Lymphocytes # (1.0-4.8) k/uL ABG pH (7.35-7.45) ABG pCO2 (35-45) mmHg ABG HCO3 (21-25) mmol/L ABG Total CO2 (19-24) mmol/L ABG O2 Saturation (94-97) % Sodium (137-145) mmol/L Chloride (98-107) mmol/L BUN (9-20) mg/dL Creatinine (0.66-1.25) mg/dL Glucose (74-99) mg/dL POC Glucose (mg/dL) 118 H (75-99) mg/dL Calcium (8.4-10.2) mg/dL Phosphorus (2.5-4.5) mg/dL Ammonia 33 H (<30) umol/L Microbiology - Last 24 Hours (Table) 11/22/18 14:00 Gram Stain - Preliminary Peritoneal Fluid Body Fluid Culture - Preliminary Assessment and Plan Assessment: #1. Hypotension, possibly related to narcotic analgesics, and hypovolemia, rule out sepsis. Responded fairly well to fluids and Narcan. Presently the patient's blood pressure is stable. However his mental status is abnormal today. And the patient seems to be lethargic, encephalopathic, hence I recommended workup to address his encephalopathy and confusion. #2. Acute postoperative blood loss anemia, an expected outcome of surgery. Hemoglobin is 7.9, symptomatic, transfused with 1 unit of PRBC #3. Lethargy, likely related to hypotension, and narcotic analgesics, will discontinue his Ultram, we'll discontinue the Zoloft, and CT of the brain is nondiagnostic. #4. Rule out sepsis, cultures are pending, however the Gram stain from the peritoneal fluid is negative so far. #5. Right hip intratrochanteric fracture, after a mechanical fall, status post right IT hip repair, postop day 4 #6. End-stage renal disease, on peritoneal dialysis #7. History of coronary artery disease with previous stenting #8. History of mild ischemic cardiomyopathy with the EF of 45-50%, and mitral valve insufficiency #9. History of hypertension, hyperlipidemia #10. Diabetes mellitus type 2 #11. History of carotid artery stenosis status post left endarterectomy Plan: Continue to monitor the patient in the ICU, reviewed the ABG, ammonia level, CT of the brain, reviewed all the metabolic workup that he had so far, cannot pinpoint the exact clear-cut etiology of his lethargy and mental status change, patient will lead to be closely monitored, discussed his condition with his son at bedside, serum cortisol level was ordered today, continue peritoneal dialysis, await the final culture from the peritoneal fluid. Prognosis remains guarded, we'll continue to follow. Time with Patient: Less than 30
[2018-11-23] MEDS ORDERED: ARTIFICIAL TEARS-HYPROMELLOSE DROPS 15 ML BTL BOTH EYES PRN (16:56)
[2018-11-23 17:06] LABS: Glucose,Whole Blood 128 mg/dL (75-99)
--- NOTE | 2018-11-23 19:28 | PN ---
PROGRESS NOTE DATE OF SERVICE: 11/22/2018 PRESENTING COMPLAINT: Tired. INTERVAL HISTORY: This patient was seen by me yesterday afternoon in the ICU. Patient is status post right femur fracture and repair. Patient was transferred to the ICU because of hypotension. Blood pressure after fluid bolus has remained stable, close to 100s; did not require any pressors. Patient was somewhat tired earlier in the day, but late by afternoon patient actually ate some food. Pretty much in bed. Family at the bedside. He has pain at the operative site. REVIEW OF SYSTEMS: Done for constitutional, cardiovascular, GI, pulmonary, musculoskeletal; relevant findings as above. No focal weakness. Getting peritoneal dialysis. CURRENT MEDICATIONS: Reviewed. PHYSICAL EXAMINATION: Temperature 97.8, pulse 68, respiration 14, blood pressure 96/57, pulse ox 96% on 2 L. GENERAL APPEARANCE: Lying in bed, tired. Awake. EYES: Pupils equal. Conjunctivae pale. NECK: JVD not raised. Mass not palpable. RESPIRATORY: Effort normal. Lungs are clear. CARDIOVASCULAR: First and second sounds normal. No edema. ABDOMEN: Soft, non-tender. Liver and spleen not palpable. Peritoneal catheter in place. PSYCHIATRY: Able to answer simple questions. Arousable. INVESTIGATIONS: White count 11.2, hemoglobin 8.8, potassium 4.6, BUN 86, creatinine 10.18, phosphorus 9.4. ASSESSMENT: 1. Acute hypotension. Patient has been given fluids and a unit of blood. 2. Right femur intertrochanteric fracture secondary to fall followed by surgical intervention. 3. Coronary artery disease with prior history of stent. 4. Hyperlipidemia. 5. Essential hypertension. 6. 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 7. End-stage kidney disease, on CAPD. 8. Benign prostatic hypertrophy. 9. Anxiety not otherwise specified. 10.Primary osteoarthritis. 11.Acute metabolic encephalopathy. Patient's Neurontin was discontinued. Pain medications have been scaled back. PLAN: Continue with IV fluids, other medication and treatment plan. I expect the patient to perk up. Blood pressure is more respectable. MMODL / IJN: [id number] /
--- NOTE | 2018-11-23 19:55 | PN ---
PROGRESS NOTE DATE OF SERVICE: 11/23/2018 PRESENTING COMPLAINT: Lethargic. INTERVAL HISTORY: Patient is status post right femur fracture followed by repair. Subsequently patient became hypotensive and lethargic/encephalopathic. Patient remains in the ICU. I spoke to patient's nephew and brother at the bedside. The patient had a fairly decent lunch yesterday and fairly decent supper yesterday. Again patient has been lethargic. The patient has not really received any sedative pain medications and is off any motor or muscle relaxants, too. I did speak at length with the patient's grandson. 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 REVIEW OF SYSTEMS: Review of systems could not be done, as patient is rather lethargic but just about arousable. CURRENT MEDICATIONS: Reviewed. They include: 1. Aranesp. 2. Lovenox. 3. NovoLog. 4. Toradol. 5. Midodrine. 6. Protonix. 7. IV Zosyn. 8. Renvela. PHYSICAL EXAMINATION: Temperature 97.6, pulse 68, respiration 9, blood pressure 102/57, pulse ox 98% on 2 L. GENERAL APPEARANCE: Lying in bed, somewhat lethargic. EYES: Pupils equal. Conjunctivae pale. NECK: JVD unable to assess. Mass not palpable. RESPIRATORY: Effort normal. Lungs are clear. CARDIOVASCULAR: First and second sounds normal. No edema. ABDOMEN: Soft, non-tender. Liver and spleen not palpable. Peritoneal catheter in place. PSYCHIATRY: Lethargic. Just about arousable. INVESTIGATIONS: White count 11.8, hemoglobin 8.1, potassium 4.6, BUN 79, creatinine 9.61, phosphorus 8.7, cortisol 20. CT scan of the brain shows some age-related atrophy, mild. ASSESSMENT: 1. Acute metabolic encephalopathy. At this point patient is not on any sedatives. Neurontin also was held. No Robaxin. Barely any pain medications. It is possible that the patient is not being hemodialyzed enough through peritoneal dialysis. We will discuss with Dr. Chun to see if we can be more aggressive about the same. That may be the other cause. Patient did have a CT scan of the brain that was negative. Patient has no focal features. 2. Right femur intertrochanteric fracture secondary to fall followed by surgery. 3. Coronary artery disease with prior history of stent. 4. Hyperlipidemia. 5. Essential hypertension. 6. 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 7. End-stage kidney disease, on CAPD. 8. Benign prostatic hypertrophy. 9. Anxiety not otherwise specified. 10.Primary osteoarthritis. PLAN: I spoke at length to the patient's brother and son at the bedside. Later I spoke to Dr. Chun from Nephrology, wondering if the patient was not getting adequately dialyzed with the peritoneal and maybe should be more aggressive with the same if that is the reason for his metabolic encephalopathy not improving. He will make some changes to the peritoneal dialysis starting today, and we will see if that makes a change in patient's mental status in the next 24 hours and go from there. MMODL / IJN: [id number] /
[2018-11-23] MEDS: ATORVASTATIN 40 MG TAB PO SCH (20:26)
[2018-11-23] MEDS: SENNOSIDES-DOCUSATE SODIUM 1 EACH TAB PO SCH (20:28)
[2018-11-23 21:02] LABS: Glucose,Whole Blood 142 mg/dL (75-99)
[2018-11-24] MEDS: KETOROLAC 30 MG/ML 1 ML VIAL IVP SCH ×4 (00:07→23:23)
[2018-11-24] MEDS: DIALYSIS (PERIT 1.5%) 2,000 ML 30 G/2,000 ML BAG INTRAPERIT SCH ×5 (00:09→21:16)
[2018-11-24] MEDS: SODIUM CHLORIDE 0.9% 1,000 ML IV SCH ×2 (01:00→21:19)
[2018-11-24] MEDS: ACETAMINOPHEN TAB 325 MG TAB PO SCH ×3 (02:40→21:13)
[2018-11-24 05:34] LABS: Anisocytosis Slight; Basophils % (A) 0 %; Eosinophils # (A) 0.7 k/uL (0-0.7); Eosinophils % (A) 5 %; HCT 25.1 % (39.0-53.0); HGB 8.1 gm/dL (13.0-17.5); Lymphocytes # (A) 0.7 k/uL (1.0-4.8); Lymphocytes % (A) 5 %; MCH 31.1 pg (25.0-35.0); MCHC 32.1 g/dL (31.0-37.0); MCV 96.7 fL (80.0-100.0); Macrocytosis Slight; Monocytes % (A) 7 %; Neutrophils # (A) 11.6 k/uL (1.3-7.7); Neutrophils % (A) 79 %; Platelet Count 225 k/uL (150-450); RDW 18.4 % (11.5-15.5); WBC 14.6 k/uL (3.8-10.6)
[2018-11-24 07:03] LABS: Glucose,Whole Blood 107 mg/dL (75-99)
[2018-11-24 07:45] LABS: Calcium 8.5 mg/dL (8.4-10.2)
[2018-11-24 07:52] LABS: Phosphorus 8.3 mg/dL (2.5-4.5); Potassium 4.7 mmol/L (3.5-5.1)
[2018-11-24 07:53] LABS: Magnesium 2.4 mg/dL (1.6-2.3)
[2018-11-24] MEDS: INSULIN ASPART 100 UNIT/ML 1 ML 10 ML VIAL SQ SCH ×4 (08:12→21:17)
[2018-11-24] MEDS: ATENOLOL 25 MG TAB PO SCH (08:16)
[2018-11-24] MEDS: SEVELAMER 800 MG TAB PO SCH ×2 (08:16→21:12)
[2018-11-24] MEDS: PIPERACILLIN-TAZOBACTAM 3.375 GM in SODIUM CHLORIDE 0.9% 100 ML IVPB SCH ×2 (08:20→21:19)
[2018-11-24] MEDS: ENOXAPARIN 30 MG/0.3 ML SYRINGE SQ SCH (08:21)
[2018-11-24] MEDS: MIDODRINE 5 MG TAB PO SCH ×2 (08:21→21:12)
[2018-11-24] MEDS: PANTOPRAZOLE 40 MG TABLET PO SCH (08:31)
[2018-11-24] MEDS: SODIUM BICARBONATE TAB 650 MG TAB PO SCH ×2 (08:31→21:19)
[2018-11-24] MEDS: TAMSULOSIN 0.4 MG CAP.ER.24H PO SCH (08:31)
[2018-11-24] MEDS: FENOFIBRATE 160 MG TAB PO SCH (09:28)
[2018-11-24 11:28] LABS: Glucose,Whole Blood 129 mg/dL (75-99)
--- NOTE | 2018-11-24 11:53 | P.PN ---
Subjective Progress Note Date: 11/24/18 Seen and examined for the follow-up of ESRD. Still foggy very slow to react. Tolerating dialysis well. Currently on 1.5% dialysate 2 L every 4 hourly. Objective - Vital Signs Vital signs: Vital Signs Temp 97.6 F 11/24/18 08:00 Pulse 78 11/24/18 09:00 Resp 20 11/24/18 09:00 BP 96/55 11/24/18 09:00 Pulse Ox 97 11/24/18 09:00 Intake & Output 11/23/18 11/24/18 11/24/18 18:59 06:59 18:59 Intake Total 500 700 318 Output Total 0 4500 0 Balance 500 -3800 318 Weight 78.5 kg 72.9 kg Intake: IV 350 700 200 Piperacillin-Tazobactam 3 100 100 50 .375 gm In Sodium Chloride 0.9% 100 ml @ 25 mls/hr IVPB Q12HR [facility] Rx #:[id number] Sodium Chloride 0.9% 1, 250 600 150 000 ml @ 50 mls/hr IV . Q20H [facility] Rx#:[id number] Intake, IV Titration 150 Amount Sodium Chloride 0.9% 50 150 ml @ 0 mls/hr IV .STK-MED ONE with ceFAZolin 2,000 mg Rx#:[id number] Oral 118 Output: Drainage 4500 Abdomen 4500 Urine 0 0 0 Other: Voiding Method CAPD CAPD # Voids 0 - Exam Lying in bed no acute distress S1-S2 heard Lungs clear No edema PD catheter - Labs CBC & Chem 7: 11/24/18 04:33 11/24/18 04:33 Labs: Abnormal Lab Results - Last 24 Hours (Table) 11/23/18 11/23/18 11/23/18 Range/Units 10:05 10:06 11:52 WBC (3.8-10.6) k/uL RBC (4.30-5.90) m/uL Hgb (13.0-17.5) gm/dL Hct (39.0-53.0) % RDW (11.5-15.5) % Neutrophils # (1.3-7.7) k/uL Lymphocytes # (1.0-4.8) k/uL ABG pH 7.33 L (7.35-7.45) ABG pCO2 49 H (35-45) mmHg ABG HCO3 26 H (21-25) mmol/L ABG Total CO2 27 H (19-24) mmol/L ABG O2 Saturation 97.8 H (94-97) % Sodium (137-145) mmol/L Carbon Dioxide (22-30) mmol/L BUN (9-20) mg/dL Creatinine (0.66-1.25) mg/dL Glucose (74-99) mg/dL POC Glucose (mg/dL) 118 H (75-99) mg/dL Phosphorus (2.5-4.5) mg/dL Magnesium (1.6-2.3) mg/dL Ammonia 33 H (<30) umol/L 11/23/18 11/23/18 11/24/18 Range/Units 17:04 21:01 04:33 WBC (3.8-10.6) k/uL RBC (4.30-5.90) m/uL Hgb (13.0-17.5) gm/dL Hct (39.0-53.0) % RDW (11.5-15.5) % Neutrophils # (1.3-7.7) k/uL Lymphocytes # (1.0-4.8) k/uL ABG pH (7.35-7.45) ABG pCO2 (35-45) mmHg ABG HCO3 (21-25) mmol/L ABG Total CO2 (19-24) mmol/L ABG O2 Saturation (94-97) % Sodium 132 L (137-145) mmol/L Carbon Dioxide 19 L (22-30) mmol/L BUN 77 H (9-20) mg/dL Creatinine 9.22 H* (0.66-1.25) mg/dL Glucose 102 H (74-99) mg/dL POC Glucose (mg/dL) 128 H 142 H (75-99) mg/dL Phosphorus 8.3 H (2.5-4.5) mg/dL Magnesium 2.4 H (1.6-2.3) mg/dL Ammonia (<30) umol/L 11/24/18 11/24/18 Range/Units 04:33 07:01 WBC 14.6 H (3.8-10.6) k/uL RBC 2.60 L (4.30-5.90) m/uL Hgb 8.1 L (13.0-17.5) gm/dL Hct 25.1 L (39.0-53.0) % RDW 18.4 H (11.5-15.5) % Neutrophils # 11.6 H (1.3-7.7) k/uL Lymphocytes # 0.7 L (1.0-4.8) k/uL ABG pH (7.35-7.45) ABG pCO2 (35-45) mmHg ABG HCO3 (21-25) mmol/L ABG Total CO2 (19-24) mmol/L ABG O2 Saturation (94-97) % Sodium (137-145) mmol/L Carbon Dioxide (22-30) mmol/L BUN (9-20) mg/dL Creatinine (0.66-1.25) mg/dL Glucose (74-99) mg/dL POC Glucose (mg/dL) 107 H (75-99) mg/dL Phosphorus (2.5-4.5) mg/dL Magnesium (1.6-2.3) mg/dL Ammonia (<30) umol/L Microbiology - Last 24 Hours (Table) 11/22/18 14:00 Gram Stain - Preliminary Peritoneal Fluid Body Fluid Culture - Preliminary 11/22/18 11:10 Blood Culture - Preliminary Blood No Growth after 24 hours Assessment and Plan Assessment: #1 fracture secondary to fall status post intramedullary nailing. #2 mild encephalopathy suspect pain medications. Doubt secondary to under dialysis. #3 ESRD on peritoneal dialysis under the care of Dr. Chun #4 hypotension on midodrine. #5 anemia multifactorial #6 metabolic bone disease. #7 metabolic acidosis Plan: #1 continue with peritoneal dialysis. #2 continue with Toradol for pain control avoid narcotics. #3 continue with sodium bicarbonate for metabolic acidosis.
--- NOTE | 2018-11-24 11:54 | P.PN ---
Subjective Progress Note Date: 11/24/18 Principal diagnosis: Hypotension secondary to narcotics, analgesics, hypovolemia, possible sepsis. This is a 72-year-old white male patient of Dr. Girard, who was transferred from [facility] on 11/18/2018 after sustaining a fall in his driveway going out for mail, and patient sustained right hip fracture. On 11/19 patient underwent trochanteric intramedullary nailing of the right intratrochanteric femur fracture. Past medical history is positive for hypertension, hyperlipidemia, coronary artery disease with previous stenting, mild ischemic cardiomyopathy, end-stage renal disease on peritoneal dialysis, carotid artery stenosis status post left endarterectomy, and mitral insufficiency. He did not lose consciousness, did not have dizziness or lightheadedness prior to the fall, and this was a mechanical fall. Postoperative. Patient was noted to be lethargic, and hypoxemic with a pulse ox of 85% on room air. Brain CT showed cerebral atrophy and chronic small vessel ischemia, no acute process. Last night on 11/21/2018 patient was also noted to be hypotensive, she was given IV fluid bolus of 0.9 normal saline of 500 mL, and a unit of blood for a hemoglobin of 7.9. Stat blood gas was done, and hypercapnic respiratory failure was ruled out. Patient did receive a dose of Narcan, narcotic pain medications were discontinued. This morning he seen in the intensive care unit, still somnolent, but more arousable, and he is starting to respond verbally, he denies any distress, she did not require vasopressor support overnight. This morning's labs were reviewed, showed WBC of 11.2, hemoglobin of 8.8, sodium of 135, potassium is 4.6, chloride is 96, B1 of 86 and creatinine of 10.18. Patient is receiving his peritoneal dialysis, 4 times a day. No fever or chills, lactic acid was normal limits at 1.0. Chest x -ray this morning showed some prominence of pulmonary vascular markings, however this was a rotated film, and patient takes shallow breaths. He is in no distress, he is on 2 L of oxygen per nasal cannula with a pulse ox of 97%, afebrile, in sinus mechanism at a rate of 56 BPM. He was started on Midrin at 10 mg 3 times a day per nephrology. Stat blood culture was sent, will obtain a urine and peritoneal fluid culture as well. Her pulmonary symptoms, no cough or congestion, no shortness of breath, no chest pain, no abdominal pain, no nausea or vomiting. Patient was reevaluated today on 11/23/2018, remains in the ICU, he is hemodynamically stable, not in any form of respiratory distress, however he seems to be quite lethargic, and confused. ABG is nondiagnostic. Ammonia level is relatively within the normal range. Sugars are normal. All his labs are normal except renal profile which is chronic finding. CT of the brain was ordered. It showed no evidence of CVA, mostly atrophy changes, and nothing acute. ABG showed a pO2 of 98 pCO2 of 49 pH of 7.33. His basic metabolic profile is relatively normal. CBC showed a WBC count of 11.8 hemoglobin of 8.1. Peritoneal fluid Gram stain is negative. Cultures are pending. Considering the lethargy noted, and considering the patient is encephalopathic, hence I will keep the patient in the ICU today, no clear-cut explanation to his mental status change except for the fact that the patient have what looks like a metabolic encephalopathy. Some of the medications will be discontinued including narcotics, and I will discontinue his Zoloft. Patient was reevaluated today on 11/24/2018, he seems to be improving, his mental status is much better compared to yesterday. Patient is alert, oriented to person and place. Denies any shortness of breath, no cough no wheezing, according to the nurses has been intermittently lethargic overnight, but this morning he seems to be much better, and definitely less lethargic. All labs were reviewed, WBC count is 14.6 and global was 8.1. Electrodes are normal BUN is 77 creatinine is 9.22. Patient is a peritoneal dialysis patient Objective - Vital Signs Vital signs: Vital Signs Temp 97.6 F 11/24/18 08:00 Pulse 78 11/24/18 09:00 Resp 20 11/24/18 09:00 BP 96/55 11/24/18 09:00 Pulse Ox 97 11/24/18 09:00 Intake & Output 11/23/18 11/24/18 11/24/18 18:59 06:59 18:59 Intake Total 500 700 318 Output Total 0 4500 0 Balance 500 -3800 318 Weight 78.5 kg 72.9 kg Intake: IV 350 700 200 Piperacillin-Tazobactam 3 100 100 50 .375 gm In Sodium Chloride 0.9% 100 ml @ 25 mls/hr IVPB Q12HR [facility] Rx #:[id number] Sodium Chloride 0.9% 1, 250 600 150 000 ml @ 50 mls/hr IV . Q20H [facility] Rx#:[id number] Intake, IV Titration 150 Amount Sodium Chloride 0.9% 50 150 ml @ 0 mls/hr IV .STK-MED ONE with ceFAZolin 2,000 mg Rx#:[id number] Oral 118 Output: Drainage 4500 Abdomen 4500 Urine 0 0 0 Other: Voiding Method CAPD CAPD CAPD # Voids 0 - Exam Physical Exam: Revealed a 72-year-old white male, frail looking, chronically ill , more awake, less lethargic, in no distress. Head: Atraumatic, normocephalic. HEENT:[Neck is supple.] [No neck masses.] [No thyromegaly.] [No JVD.] Chest: [Clear throughout, no crackles, no rhonchi, no wheezes.] Cardiac Exam: [Normal S1 and S2, no S3 gallop, no murmur.] Abdomen: [Soft, nontender, no megaly, no rebound, no guarding, normal bowel sounds.] Extremities: [No clubbing, no edema, no cyanosis.] Right hip incision is covered with surgical dressing, clean and dry. No tenderness. Neurological Exam: Less Lethargic, arousable, follows simple instructions, Skin: No rashes. Lymphatic: No lymphadenopathy. - Labs CBC & Chem 7: 11/24/18 04:33 11/24/18 04:33 Labs: Abnormal Lab Results - Last 24 Hours (Table) 11/23/18 11/23/18 11/23/18 Range/Units 10:05 10:06 11:52 WBC (3.8-10.6) k/uL RBC (4.30-5.90) m/uL Hgb (13.0-17.5) gm/dL Hct (39.0-53.0) % RDW (11.5-15.5) % Neutrophils # (1.3-7.7) k/uL Lymphocytes # (1.0-4.8) k/uL ABG pH 7.33 L (7.35-7.45) ABG pCO2 49 H (35-45) mmHg ABG HCO3 26 H (21-25) mmol/L ABG Total CO2 27 H (19-24) mmol/L ABG O2 Saturation 97.8 H (94-97) % Sodium (137-145) mmol/L Carbon Dioxide (22-30) mmol/L BUN (9-20) mg/dL Creatinine (0.66-1.25) mg/dL Glucose (74-99) mg/dL POC Glucose (mg/dL) 118 H (75-99) mg/dL Phosphorus (2.5-4.5) mg/dL Magnesium (1.6-2.3) mg/dL Ammonia 33 H (<30) umol/L 11/23/18 11/23/18 11/24/18 Range/Units 17:04 21:01 04:33 WBC (3.8-10.6) k/uL RBC (4.30-5.90) m/uL Hgb (13.0-17.5) gm/dL Hct (39.0-53.0) % RDW (11.5-15.5) % Neutrophils # (1.3-7.7) k/uL Lymphocytes # (1.0-4.8) k/uL ABG pH (7.35-7.45) ABG pCO2 (35-45) mmHg ABG HCO3 (21-25) mmol/L ABG Total CO2 (19-24) mmol/L ABG O2 Saturation (94-97) % Sodium 132 L (137-145) mmol/L Carbon Dioxide 19 L (22-30) mmol/L BUN 77 H (9-20) mg/dL Creatinine 9.22 H* (0.66-1.25) mg/dL Glucose 102 H (74-99) mg/dL POC Glucose (mg/dL) 128 H 142 H (75-99) mg/dL Phosphorus 8.3 H (2.5-4.5) mg/dL Magnesium 2.4 H (1.6-2.3) mg/dL Ammonia (<30) umol/L 11/24/18 11/24/18 Range/Units 04:33 07:01 WBC 14.6 H (3.8-10.6) k/uL RBC 2.60 L (4.30-5.90) m/uL Hgb 8.1 L (13.0-17.5) gm/dL Hct 25.1 L (39.0-53.0) % RDW 18.4 H (11.5-15.5) % Neutrophils # 11.6 H (1.3-7.7) k/uL Lymphocytes # 0.7 L (1.0-4.8) k/uL ABG pH (7.35-7.45) ABG pCO2 (35-45) mmHg ABG HCO3 (21-25) mmol/L ABG Total CO2 (19-24) mmol/L ABG O2 Saturation (94-97) % Sodium (137-145) mmol/L Carbon Dioxide (22-30) mmol/L BUN (9-20) mg/dL Creatinine (0.66-1.25) mg/dL Glucose (74-99) mg/dL POC Glucose (mg/dL) 107 H (75-99) mg/dL Phosphorus (2.5-4.5) mg/dL Magnesium (1.6-2.3) mg/dL Ammonia (<30) umol/L Microbiology - Last 24 Hours (Table) 11/22/18 14:00 Gram Stain - Preliminary Peritoneal Fluid Body Fluid Culture - Preliminary 11/22/18 11:10 Blood Culture - Preliminary Blood No Growth after 24 hours Assessment and Plan Assessment: #1. Hypotension, possibly related to narcotic analgesics, and hypovolemia, rule out sepsis. Responded fairly well to fluids and Narcan. Mental status seems to wax and waning, but seems to be much better today. #2. Acute postoperative blood loss anemia, an expected outcome of surgery. Hemoglobin is 8.1 today. #3. Lethargy, likely related to hypotension, and narcotic analgesics, will discontinue his Ultram, we'll discontinue the Zoloft, and CT of the brain is nondiagnostic. Continue to hold analgesics and narcotics. As well as Zoloft. #4. Rule out sepsis, cultures are pending, however the Gram stain from the peritoneal fluid is negative so far. #5. Right hip intratrochanteric fracture, after a mechanical fall, status post right IT hip repair, postop day 5 #6. End-stage renal disease, on peritoneal dialysis #7. History of coronary artery disease with previous stenting #8. History of mild ischemic cardiomyopathy with the EF of 45-50%, and mitral valve insufficiency #9. History of hypertension, hyperlipidemia #10. Diabetes mellitus type 2 #11. History of carotid artery stenosis status post left endarterectomy Plan: Continue present supportive care measures, continue to monitor in the ICU , patient mental status is improving but not back to baseline completely yet. All his labs were reviewed, all his medications were reviewed, discussed his condition with his family members at bedside. We will continue to follow. Prognosis remains guarded considering all the issues listed above. Time with Patient: Less than 30
[2018-11-24 18:46] LABS: Glucose,Whole Blood 161 mg/dL (75-99)
--- NOTE | 2018-11-24 19:56 | PN ---
PROGRESS NOTE DATE OF SERVICE: November 24, 2018. PRESENTING COMPLAINT: Tired. INTERVAL HISTORY: The patient with right femur fracture followed by repair subsequently became hypertensive, lethargic, and encephalopathy. All pain medications were discontinued including the patient's Neurontin. I spoke to Dr. Chun last night to change the dialysate and do some extra most likely his mental status changes are from his being uremic at this point. The patient is a bit more awake today, did actually eat a bit. Answering questions though still lethargic but definitely more awake. I spoke to patient's nephew and brother. REVIEW OF SYSTEMS: Done for constitutional, cardiovascular, GI, pulmonary relevant findings as above. The patient remains in bed. CURRENT MEDICATIONS: Reviewed that include IV Zosyn. PHYSICAL EXAMINATION: VITAL SIGNS: Temperature 97.6, pulse 67, respiration 14, blood pressure 78/53, pulse ox 98% on 2 L. GENERAL APPEARANCE: Lying in bed, more awake, though still a bit lethargic. EYES: Pupils equal. Conjunctivae pale. NECK: JVD unable to assess. Mass not palpable. RESPIRATORY: Effort normal. LUNGS are clear. CARDIOVASCULAR: 1st and 2nd sounds normal. No edema. ABDOMEN: Soft, nontender. Liver and spleen not palpable. PD catheter in place. PSYCHIATRY: Answering questions though still a bit lethargic. INVESTIGATIONS: White count 14.6, hemoglobin 8.1, potassium 4.7. BUN 77, creatinine 9.22, phosphorus 8.3. ASSESSMENT: 1. Acute metabolic encephalopathy could be from uremia. We will see more aggressive peripheral dialysis, helps to wake him up a bit more. 2. Right femur, right knee fracture secondary to fall followed by surgery. 3. Coronary artery disease, prior history of stent. 4. Hyperlipidemia. 5. Essential hypertension. 6. 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 7. End-stage kidney disease on CAPD. 8. Benign prostatic hypertrophy. 9. Anxiety not otherwise specified. 10.Primary osteoarthritis. Continue current medication and treatment plan. I do not see any obvious source of infections. I spoke to the patient's family. Follow. MMODL / IJN: [id number] /
[2018-11-24 21:00] LABS: Glucose,Whole Blood 149 mg/dL (75-99)
[2018-11-24] MEDS: MULTIVITAMINS, THERA 1 EACH TAB PO SCH (21:11)
[2018-11-24] MEDS: ATORVASTATIN 40 MG TAB PO SCH (21:19)
[2018-11-24] MEDS: SENNOSIDES-DOCUSATE SODIUM 1 EACH TAB PO SCH (21:19)
[2018-11-25] MEDS: DIALYSIS (PERIT 1.5%) 2,000 ML 30 G/2,000 ML BAG INTRAPERIT SCH ×6 (01:35→21:20)
[2018-11-25] MEDS: ACETAMINOPHEN TAB 325 MG TAB PO SCH ×5 (02:15→21:18)
[2018-11-25 05:25] LABS: Anisocytosis Slight; Basophils % (A) 0 %; Eosinophils # (A) 0.8 k/uL (0-0.7); Eosinophils % (A) 4 %; HCT 24.1 % (39.0-53.0); HGB 7.7 gm/dL (13.0-17.5); Lymphocytes # (A) 0.4 k/uL (1.0-4.8); Lymphocytes % (A) 2 %; MCH 30.8 pg (25.0-35.0); MCHC 31.9 g/dL (31.0-37.0); MCV 96.4 fL (80.0-100.0); Macrocytosis Slight; Mean Platelet Volume 6.8; Monocytes # (A) 0.9 k/uL (0-1.0); Monocytes % (A) 5 %; Neutrophils # (A) 17.7 k/uL (1.3-7.7); Neutrophils % (A) 87 %; Platelet Count 223 k/uL (150-450); RDW 18.2 % (11.5-15.5); WBC 20.2 k/uL (3.8-10.6)
[2018-11-25 05:50] LABS: Calcium 8.2 mg/dL (8.4-10.2); Magnesium 2.2 mg/dL (1.6-2.3); Phosphorus 7.7 mg/dL (2.5-4.5); Potassium 3.9 mmol/L (3.5-5.1)
[2018-11-25] MEDS: SODIUM CHLORIDE 0.9% 1,000 ML IV SCH (06:28)
[2018-11-25] MEDS: KETOROLAC 30 MG/ML 1 ML VIAL IVP SCH (06:29)
[2018-11-25 07:12] LABS: Glucose,Whole Blood 130 mg/dL (75-99)
[2018-11-25] MEDS: INSULIN ASPART 100 UNIT/ML 1 ML 10 ML VIAL SQ SCH ×4 (07:37→21:19)
[2018-11-25] MEDS: SEVELAMER 800 MG TAB PO SCH ×3 (07:45→17:49)
[2018-11-25] MEDS: MIDODRINE 5 MG TAB PO SCH ×3 (07:45→17:47)
[2018-11-25] MEDS: PANTOPRAZOLE 40 MG TABLET PO SCH (07:46)
[2018-11-25] MEDS: PIPERACILLIN-TAZOBACTAM 3.375 GM in SODIUM CHLORIDE 0.9% 100 ML IVPB SCH ×2 (08:03→21:39)
[2018-11-25] MEDS: ENOXAPARIN 30 MG/0.3 ML SYRINGE SQ SCH (08:03)
[2018-11-25] MEDS: SODIUM BICARBONATE TAB 650 MG TAB PO SCH ×2 (08:03→21:39)
[2018-11-25] MEDS: ATENOLOL 25 MG TAB PO SCH (08:04)
[2018-11-25] MEDS: FENOFIBRATE 160 MG TAB PO SCH (08:04)
[2018-11-25] MEDS: TAMSULOSIN 0.4 MG CAP.ER.24H PO SCH (08:27)
--- NOTE | 2018-11-25 09:40 | P.PN ---
Subjective Progress Note Date: 11/25/18 Principal diagnosis: Hypotension secondary to narcotics, analgesics, hypovolemia, possible sepsis. This is a 72-year-old white male patient of Dr. Girard, who was transferred from [facility] on 11/18/2018 after sustaining a fall in his driveway going out for mail, and patient sustained right hip fracture. On 11/19 patient underwent trochanteric intramedullary nailing of the right intratrochanteric femur fracture. Past medical history is positive for hypertension, hyperlipidemia, coronary artery disease with previous stenting, mild ischemic cardiomyopathy, end-stage renal disease on peritoneal dialysis, carotid artery stenosis status post left endarterectomy, and mitral insufficiency. He did not lose consciousness, did not have dizziness or lightheadedness prior to the fall, and this was a mechanical fall. Postoperative. Patient was noted to be lethargic, and hypoxemic with a pulse ox of 85% on room air. Brain CT showed cerebral atrophy and chronic small vessel ischemia, no acute process. Last night on 11/21/2018 patient was also noted to be hypotensive, she was given IV fluid bolus of 0.9 normal saline of 500 mL, and a unit of blood for a hemoglobin of 7.9. Stat blood gas was done, and hypercapnic respiratory failure was ruled out. Patient did receive a dose of Narcan, narcotic pain medications were discontinued. This morning he seen in the intensive care unit, still somnolent, but more arousable, and he is starting to respond verbally, he denies any distress, she did not require vasopressor support overnight. This morning's labs were reviewed, showed WBC of 11.2, hemoglobin of 8.8, sodium of 135, potassium is 4.6, chloride is 96, B1 of 86 and creatinine of 10.18. Patient is receiving his peritoneal dialysis, 4 times a day. No fever or chills, lactic acid was normal limits at 1.0. Chest x -ray this morning showed some prominence of pulmonary vascular markings, however this was a rotated film, and patient takes shallow breaths. He is in no distress, he is on 2 L of oxygen per nasal cannula with a pulse ox of 97%, afebrile, in sinus mechanism at a rate of 56 BPM. He was started on Midrin at 10 mg 3 times a day per nephrology. Stat blood culture was sent, will obtain a urine and peritoneal fluid culture as well. Her pulmonary symptoms, no cough or congestion, no shortness of breath, no chest pain, no abdominal pain, no nausea or vomiting. Patient was reevaluated today on 11/23/2018, remains in the ICU, he is hemodynamically stable, not in any form of respiratory distress, however he seems to be quite lethargic, and confused. ABG is nondiagnostic. Ammonia level is relatively within the normal range. Sugars are normal. All his labs are normal except renal profile which is chronic finding. CT of the brain was ordered. It showed no evidence of CVA, mostly atrophy changes, and nothing acute. ABG showed a pO2 of 98 pCO2 of 49 pH of 7.33. His basic metabolic profile is relatively normal. CBC showed a WBC count of 11.8 hemoglobin of 8.1. Peritoneal fluid Gram stain is negative. Cultures are pending. Considering the lethargy noted, and considering the patient is encephalopathic, hence I will keep the patient in the ICU today, no clear-cut explanation to his mental status change except for the fact that the patient have what looks like a metabolic encephalopathy. Some of the medications will be discontinued including narcotics, and I will discontinue his Zoloft. Patient was reevaluated today on 11/24/2018, he seems to be improving, his mental status is much better compared to yesterday. Patient is alert, oriented to person and place. Denies any shortness of breath, no cough no wheezing, according to the nurses has been intermittently lethargic overnight, but this morning he seems to be much better, and definitely less lethargic. All labs were reviewed, WBC count is 14.6 and global was 8.1. Electrodes are normal BUN is 77 creatinine is 9.22. Patient is a peritoneal dialysis patient Patient was reevaluated today on 11/25/2018, his mental status seems to be waxing and waning, today he is awake, but a bit more lethargic compared to yesterday. Does not seem to be oriented as much as he was yesterday. Patient is frail, weak, ill looking, but in no form of respiratory distress. Again according to the nurse taking care of him, his mental status seems to improve at times, and sometimes he is quite confused. His labs were reviewed, and his WBC count is 20.2, hemoglobin is 7.7. There has been a definite rise in his WBC count, however his cultures are negative, his urine cultures are negative, blood cultures are negative, and there is now a concern about some serous drainage from the surgical site, and I instructed the nurses to culture that area of the wound, and we'll address accordingly. In the meantime, the patient is on Zosyn empirically. Hemodynamically, the patient is relatively stable, and he is not on any narcotics. His Zoloft and his Ultram have been discontinued. Objective - Vital Signs Vital signs: Vital Signs Temp 97.8 F 11/25/18 08:00 Pulse 81 11/25/18 08:00 Resp 16 11/25/18 08:00 BP 85/50 11/25/18 08:00 Pulse Ox 98 11/25/18 08:02 Intake & Output 11/24/18 11/25/18 11/25/18 18:59 06:59 18:59 Intake Total 818 700 125 Output Total 0 2300 Balance 818 -1600 125 Weight 72.7 kg Intake: IV 700 700 125 Piperacillin-Tazobactam 3 100 100 25 .375 gm In Sodium Chloride 0.9% 100 ml @ 25 mls/hr IVPB Q12HR [facility] Rx #:[id number] Sodium Chloride 0.9% 1, 600 600 100 000 ml @ 50 mls/hr IV . Q20H [facility] Rx#:[id number] Oral 118 Output: Drainage 2300 Abdomen 2300 Urine 0 0 Other: Voiding Method CAPD CAPD CAPD # Voids 0 - Exam Physical Exam: Revealed a 72-year-old white male, frail looking, chronically ill , more awake, and bit more lethargic today compared to yesterday.. Head: Atraumatic, normocephalic. HEENT:[Neck is supple.] [No neck masses.] [No thyromegaly.] [No JVD.] Chest: [Clear throughout, no crackles, no rhonchi, no wheezes.] Cardiac Exam: [Normal S1 and S2, no S3 gallop, no murmur.] Abdomen: [Soft, nontender, no megaly, no rebound, no guarding, normal bowel sounds.] Extremities: [No clubbing, no edema, no cyanosis.] Right hip incision is covered with surgical dressing, nurse has been noticing some serous drainage, but looks clean and dry to me today. Neurological Exam: Less Lethargic, arousable, follows simple instructions, Skin: No rashes. Lymphatic: No lymphadenopathy. - Labs CBC & Chem 7: 11/25/18 04:36 11/25/18 04:36 Labs: Abnormal Lab Results - Last 24 Hours (Table) 11/24/18 11/24/18 11/24/18 Range/Units 11:26 16:39 20:58 WBC (3.8-10.6) k/uL RBC (4.30-5.90) m/uL Hgb (13.0-17.5) gm/dL Hct (39.0-53.0) % RDW (11.5-15.5) % Neutrophils # (1.3-7.7) k/uL Lymphocytes # (1.0-4.8) k/uL Eosinophils # (0-0.7) k/uL Sodium (137-145) mmol/L Chloride (98-107) mmol/L BUN (9-20) mg/dL Creatinine (0.66-1.25) mg/dL Glucose (74-99) mg/dL POC Glucose (mg/dL) 129 H 161 H 149 H (75-99) mg/dL Calcium (8.4-10.2) mg/dL Phosphorus (2.5-4.5) mg/dL 11/25/18 11/25/18 11/25/18 Range/Units 04:36 04:36 07:10 WBC 20.2 H (3.8-10.6) k/uL RBC 2.50 L (4.30-5.90) m/uL Hgb 7.7 L (13.0-17.5) gm/dL Hct 24.1 L (39.0-53.0) % RDW 18.2 H (11.5-15.5) % Neutrophils # 17.7 H (1.3-7.7) k/uL Lymphocytes # 0.4 L (1.0-4.8) k/uL Eosinophils # 0.8 H (0-0.7) k/uL Sodium 134 L (137-145) mmol/L Chloride 95 L (98-107) mmol/L BUN 72 H (9-20) mg/dL Creatinine 8.75 H* (0.66-1.25) mg/dL Glucose 123 H (74-99) mg/dL POC Glucose (mg/dL) 130 H (75-99) mg/dL Calcium 8.2 L (8.4-10.2) mg/dL Phosphorus 7.7 H (2.5-4.5) mg/dL Microbiology - Last 24 Hours (Table) 11/22/18 11:10 Blood Culture - Preliminary Blood No Growth after 48 hours Assessment and Plan Assessment: #1. Hypotension, possibly related to narcotic analgesics, and hypovolemia, rule out sepsis. Responded fairly well to fluids and Narcan. Mental status seems to wax and waning, this is felt to be metabolic encephalopathy. #2. Acute postoperative blood loss anemia, an expected outcome of surgery. Hemoglobin is 8.1 today. #3. Lethargy, likely related to hypotension, and narcotic analgesics, /have been discontinued. #4. Rule out sepsis, cultures are pending, however the Gram stain from the peritoneal fluid is negative so far. We'll go ahead and culture the citrus drainage from the right surgical site.. #5. Right hip intratrochanteric fracture, after a mechanical fall, status post right IT hip repair, postop day 6 #6. End-stage renal disease, on peritoneal dialysis #7. History of coronary artery disease with previous stenting #8. History of mild ischemic cardiomyopathy with the EF of 45-50%, and mitral valve insufficiency #9. History of hypertension, hyperlipidemia #10. Diabetes mellitus type 2 #11. History of carotid artery stenosis status post left endarterectomy Plan: Still concerned about his mental status, still concerned about his encephalopathy picture, hence I plan to keep the patient in the ICU today. We' ll culture the surgical site on the right hip, will continue Zosyn empirically, all his meds were reviewed, all his labs were reviewed, we'll discuss his condition with his son later on today. Patient remains quite ill, but relatively stable. And he continues to have multiple complex medical problems as noted above. Prognosis is definitely guarded. Time with Patient: Less than 30
--- NOTE | 2018-11-25 10:09 | P.PN ---
Subjective Progress Note Date: 11/25/18 Seen and examined for the follow-up of ESRD. Still foggy very slow to react but answering questions appropriately. Tolerating dialysis well. Currently on 1.5% dialysate 2 L every 4 hourly. No diarrhea. Right hip surgical scar has some drainage. Peritoneal Dialysis fluid looks clear. Objective - Vital Signs Vital signs: Vital Signs Temp 97.8 F 11/25/18 09:00 Pulse 81 11/25/18 09:00 Resp 18 11/25/18 09:00 BP 104/55 11/25/18 09:00 Pulse Ox 97 11/25/18 09:00 Intake & Output 11/24/18 11/25/18 11/25/18 18:59 06:59 18:59 Intake Total 818 700 200 Output Total 0 2300 Balance 818 -1600 200 Weight 72.7 kg Intake: IV 700 700 200 Piperacillin-Tazobactam 3 100 100 50 .375 gm In Sodium Chloride 0.9% 100 ml @ 25 mls/hr IVPB Q12HR [facility] Rx #:[id number] Sodium Chloride 0.9% 1, 600 600 150 000 ml @ 50 mls/hr IV . Q20H [facility] Rx#:[id number] Oral 118 Output: Drainage 2300 Abdomen 2300 Urine 0 0 Other: Voiding Method CAPD CAPD CAPD # Voids 0 - Exam Lying in bed no acute distress S1-S2 heard Lungs clear No edema PD catheter - Labs CBC & Chem 7: 11/25/18 04:36 11/25/18 04:36 Labs: Abnormal Lab Results - Last 24 Hours (Table) 11/24/18 11/24/18 11/24/18 Range/Units 11:26 16:39 20:58 WBC (3.8-10.6) k/uL RBC (4.30-5.90) m/uL Hgb (13.0-17.5) gm/dL Hct (39.0-53.0) % RDW (11.5-15.5) % Neutrophils # (1.3-7.7) k/uL Lymphocytes # (1.0-4.8) k/uL Eosinophils # (0-0.7) k/uL Sodium (137-145) mmol/L Chloride (98-107) mmol/L BUN (9-20) mg/dL Creatinine (0.66-1.25) mg/dL Glucose (74-99) mg/dL POC Glucose (mg/dL) 129 H 161 H 149 H (75-99) mg/dL Calcium (8.4-10.2) mg/dL Phosphorus (2.5-4.5) mg/dL 11/25/18 11/25/18 11/25/18 Range/Units 04:36 04:36 07:10 WBC 20.2 H (3.8-10.6) k/uL RBC 2.50 L (4.30-5.90) m/uL Hgb 7.7 L (13.0-17.5) gm/dL Hct 24.1 L (39.0-53.0) % RDW 18.2 H (11.5-15.5) % Neutrophils # 17.7 H (1.3-7.7) k/uL Lymphocytes # 0.4 L (1.0-4.8) k/uL Eosinophils # 0.8 H (0-0.7) k/uL Sodium 134 L (137-145) mmol/L Chloride 95 L (98-107) mmol/L BUN 72 H (9-20) mg/dL Creatinine 8.75 H* (0.66-1.25) mg/dL Glucose 123 H (74-99) mg/dL POC Glucose (mg/dL) 130 H (75-99) mg/dL Calcium 8.2 L (8.4-10.2) mg/dL Phosphorus 7.7 H (2.5-4.5) mg/dL Microbiology - Last 24 Hours (Table) 11/22/18 11:10 Blood Culture - Preliminary Blood No Growth after 48 hours Assessment and Plan Assessment: #1 fracture secondary to fall status post intramedullary nailing. #2 mild encephalopathy suspect pain medications and suspected infection. Doubt secondary to under dialysis. #3 ESRD on peritoneal dialysis under the care of Dr. Chun #4 hypotension on midodrine. #5 anemia multifactorial #6 metabolic bone disease. #7 metabolic acidosis Plan: #1 continue with peritoneal dialysis. No clinical signs and symptoms of peritonitis. #2 on Toradol for pain control avoid narcotics. #3 continue with sodium bicarbonate for metabolic acidosis. #4 cultures from the surgical site being sent by the nursing staff. Currently on Zosyn.
[2018-11-25 11:35] LABS: Glucose,Whole Blood 159 mg/dL (75-99)
[2018-11-25] MEDS: MULTIVITAMINS, THERA 1 EACH TAB PO SCH (12:29)
[2018-11-25 16:56] LABS: Glucose,Whole Blood 123 mg/dL (75-99)
[2018-11-25 21:01] LABS: Glucose,Whole Blood 137 mg/dL (75-99)
[2018-11-25] MEDS: ATORVASTATIN 40 MG TAB PO SCH (21:39)
[2018-11-25] MEDS: SENNOSIDES-DOCUSATE SODIUM 1 EACH TAB PO SCH (21:45)
--- NOTE | 2018-11-26 00:51 | PN ---
PROGRESS NOTE DATE OF SERVICE: November 25, 2018. PRESENTING COMPLAINT: Tired. INTERVAL HISTORY: This patient with right femur fracture followed by repair, subsequently became hypotensive, lethargic, encephalopathic. All pain medications were discontinued including Neurontin and the patient's dialysate was changed. The patient's nephew said the patient ate well lunch yesterday and supper. Again patient today is lethargic. CT scan has also been negative. The patient does not have any central acting drugs. REVIEW OF SYSTEMS: Difficult to assess. As patient is lethargic again. CURRENT MEDICATIONS: Reviewed that include IV Zosyn. PHYSICAL EXAMINATION: VITAL SIGNS: Temperature 98.3, pulse 86, respiration 17, blood pressure 109/61, pulse ox 99 percent on 2 L. GENERAL APPEARANCE: Lethargic, just about arousable. EYES: Pupils equal. Conjunctivae pale. NECK: JVD not raised. Mass not palpable. RESPIRATORY: Effort normal. LUNGS: Clear. CARDIOVASCULAR: 1st and 2nd sounds normal. No edema. ABDOMEN: Soft, nontender. Liver and spleen palpable. PD catheter in place. PSYCHIATRY: Lethargic, just barely arousable. INVESTIGATIONS: White count 20.2, hemoglobin 7.7, potassium 3.9, BUN 32, creatinine 8.75, phosphorus 7.7. ASSESSMENT: 1. Acute metabolic encephalopathy, fluctuating. Could be from uremia otherwise unclear. 2. Right femur fracture secondary to fall followed by IM screw. 3. Coronary artery disease with prior history of stent. 4. Hyperlipidemia. 5. Essential hypertension. 6. 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 7. End-stage kidney disease on CAPD. 8. Benign prostatic hypertrophy. 9. Anxiety not otherwise specified. 10.Primary osteoarthritis. PLAN: We will order EEG in the morning. Talked to the family at the bedside. The patient is off all sedative drugs. Empirically, he is on antibiotics. MMODL / IJN: [id number] /
[2018-11-26] MEDS: DIALYSIS (PERIT 1.5%) 2,000 ML 30 G/2,000 ML BAG INTRAPERIT SCH ×5 (00:53→17:53)
[2018-11-26] MEDS: ACETAMINOPHEN TAB 325 MG TAB PO SCH ×3 (04:29→16:27)
[2018-11-26 04:54] LABS: Anisocytosis Slight; Basophils # (A) 0.1 k/uL (0-0.2); Basophils % (A) 0 %; Eosinophils # (A) 0.3 k/uL (0-0.7); Eosinophils % (A) 1 %; HCT 23.8 % (39.0-53.0); HGB 7.6 gm/dL (13.0-17.5); Hypochromasia Slight; Lymphocytes # (A) 0.7 k/uL (1.0-4.8); Lymphocytes % (A) 3 %; MCHC 31.8 g/dL (31.0-37.0); MCV 97.6 fL (80.0-100.0); Macrocytosis Slight; Mean Platelet Volume 7.1; Monocytes % (A) 4 %; Neutrophils # (A) 21.1 k/uL (1.3-7.7); Neutrophils % (A) 88 %; Platelet Count 218 k/uL (150-450); RBC 2.44 m/uL (4.30-5.90); RDW 18.2 % (11.5-15.5); WBC 24.1 k/uL (3.8-10.6)
[2018-11-26 05:10] LABS: Calcium 8.6 mg/dL (8.4-10.2); Magnesium 2.2 mg/dL (1.6-2.3); Phosphorus 6.9 mg/dL (2.5-4.5)
[2018-11-26 07:04] LABS: Glucose,Whole Blood 160 mg/dL (75-99)
--- NOTE | 2018-11-26 09:08 | P.PN ---
Subjective Progress Note Date: 11/26/18 Principal diagnosis: Hypotension, hypovolemia, metabolic encephalopathy, possible sepsis This is a 72-year-old white male patient of Dr. Girard, who was transferred from [facility] on 11/18/2018 after sustaining a fall in his driveway going out for mail, and patient sustained right hip fracture. On 11/19 patient underwent trochanteric intramedullary nailing of the right intratrochanteric femur fracture. Past medical history is positive for hypertension, hyperlipidemia, coronary artery disease with previous stenting, mild ischemic cardiomyopathy, end-stage renal disease on peritoneal dialysis, carotid artery stenosis status post left endarterectomy, and mitral insufficiency. He did not lose consciousness, did not have dizziness or lightheadedness prior to the fall, and this was a mechanical fall. Postoperative. Patient was noted to be lethargic, and hypoxemic with a pulse ox of 85% on room air. Brain CT showed cerebral atrophy and chronic small vessel ischemia, no acute process. Last night on 11/21/2018 patient was also noted to be hypotensive, she was given IV fluid bolus of 0.9 normal saline of 500 mL, and a unit of blood for a hemoglobin of 7.9. Stat blood gas was done, and hypercapnic respiratory failure was ruled out. Patient did receive a dose of Narcan, narcotic pain medications were discontinued. This morning he seen in the intensive care unit, still somnolent, but more arousable, and he is starting to respond verbally, he denies any distress, she did not require vasopressor support overnight. This morning's labs were reviewed, showed WBC of 11.2, hemoglobin of 8.8, sodium of 135, potassium is 4.6, chloride is 96, B1 of 86 and creatinine of 10.18. Patient is receiving his peritoneal dialysis, 4 times a day. No fever or chills, lactic acid was normal limits at 1.0. Chest x -ray this morning showed some prominence of pulmonary vascular markings, however this was a rotated film, and patient takes shallow breaths. He is in no distress, he is on 2 L of oxygen per nasal cannula with a pulse ox of 97%, afebrile, in sinus mechanism at a rate of 56 BPM. He was started on Midrin at 10 mg 3 times a day per nephrology. Stat blood culture was sent, will obtain a urine and peritoneal fluid culture as well. Her pulmonary symptoms, no cough or congestion, no shortness of breath, no chest pain, no abdominal pain, no nausea or vomiting. Patient was reevaluated today on 11/23/2018, remains in the ICU, he is hemodynamically stable, not in any form of respiratory distress, however he seems to be quite lethargic, and confused. ABG is nondiagnostic. Ammonia level is relatively within the normal range. Sugars are normal. All his labs are normal except renal profile which is chronic finding. CT of the brain was ordered. It showed no evidence of CVA, mostly atrophy changes, and nothing acute. ABG showed a pO2 of 98 pCO2 of 49 pH of 7.33. His basic metabolic profile is relatively normal. CBC showed a WBC count of 11.8 hemoglobin of 8.1. Peritoneal fluid Gram stain is negative. Cultures are pending. Considering the lethargy noted, and considering the patient is encephalopathic, hence I will keep the patient in the ICU today, no clear-cut explanation to his mental status change except for the fact that the patient have what looks like a metabolic encephalopathy. Some of the medications will be discontinued including narcotics, and I will discontinue his Zoloft. Patient was reevaluated today on 11/24/2018, he seems to be improving, his mental status is much better compared to yesterday. Patient is alert, oriented to person and place. Denies any shortness of breath, no cough no wheezing, according to the nurses has been intermittently lethargic overnight, but this morning he seems to be much better, and definitely less lethargic. All labs were reviewed, WBC count is 14.6 and global was 8.1. Electrodes are normal BUN is 77 creatinine is 9.22. Patient is a peritoneal dialysis patient Patient was reevaluated today on 11/25/2018, his mental status seems to be waxing and waning, today he is awake, but a bit more lethargic compared to yesterday. Does not seem to be oriented as much as he was yesterday. Patient is frail, weak, ill looking, but in no form of respiratory distress. Again according to the nurse taking care of him, his mental status seems to improve at times, and sometimes he is quite confused. His labs were reviewed, and his WBC count is 20.2, hemoglobin is 7.7. There has been a definite rise in his WBC count, however his cultures are negative, his urine cultures are negative, blood cultures are negative, and there is now a concern about some serous drainage from the surgical site, and I instructed the nurses to culture that area of the wound, and we'll address accordingly. In the meantime, the patient is on Zosyn empirically. Hemodynamically, the patient is relatively stable, and he is not on any narcotics. His Zoloft and his Ultram have been discontinued. On a 11/26/2018 patient seen in follow-up in the intensive care unit. Patient moans, but does not respond verbally, he follows command, and his lethargic. Room air pulse ox is 93%, patient is afebrile, hemodynamically stable, 0.9 normal saline at a rate of 50 ML per hour. Patient had 2 CTs of the brain and both were negative for any acute findings. His lab work has been reviewed, and white blood cell count is 24.1, hemoglobin is 7.6, sodium is 133, potassium is 4.0, chloride was 95, B1 was 70 and creatinine was 8.24. Patient gets peritoneal dialysis exchanges 4 times daily. He is in -782 mL fluid balance in the last 24 hours. His mentation really has not improved since his admission to the intensive care unit. Peritoneal fluid cultures were negative, blood cultures were negative. No fever or chills. Last chest x-ray on 11/22/2018 shows some prominence of pulmonary vascular markings. Clinically patient does not have any signs of respiratory distress, no use of accessory muscles of breathing. She is maintaining good oxygenation on room air. Lung sounds are clear to auscultation. all narcotics have been discontinued. Patient remains on empiric antibiotics in the form of Zosyn. His Zoloft and Ultram have been discontinued. Objective - Vital Signs Vital signs: Vital Signs Temp 98.6 F 11/26/18 08:00 Pulse 93 11/26/18 08:00 Resp 18 11/26/18 08:00 BP 119/68 11/26/18 08:00 Pulse Ox 93 L 11/26/18 08:00 Intake & Output 11/25/18 11/26/18 11/26/18 18:59 06:59 18:59 Intake Total 750 450 100 Balance 750 450 100 Weight 73.1 kg Intake: IV 750 425 100 Piperacillin-Tazobactam 3 100 75 .375 gm In Sodium Chloride 0.9% 100 ml @ 25 mls/hr IVPB Q12HR [facility] Rx #:[id number] Sodium Chloride 0.9% 1, 650 350 100 000 ml @ 50 mls/hr IV . Q20H [facility] Rx#:[id number] Lipid 25 Piperacillin-Tazobactam 3 25 .375 gm In Sodium Chloride 0.9% 100 ml @ 25 mls/hr IVPB Q12HR [facility] Rx #:[id number] Other: Voiding Method CAPD CAPD - Exam GENERAL EXAM: Somnolent, but arousable and comfortable 72-year-old white male patient currently on room air with a pulse ox of 97%, comfortable in no apparent distress. HEAD: Normocephalic/atraumatic. EYES: Normal reaction of pupils, equal size. Conjunctiva pink, sclera white. NOSE: Clear with pink turbinates. THROAT: No erythema or exudates. NECK: No masses, no JVD, no thyroid enlargement, no adenopathy. CHEST: No chest wall deformity. Symmetrical expansion. LUNGS: Equal air entry with no crackles, wheeze, rhonchi or dullness. CVS: Regular rate and rhythm, normal S1 and S2, no gallops, no murmurs, no rubs ABDOMEN: Soft, nontender. No hepatosplenomegaly, normal bowel sounds, no guarding or rigidity. EXTREMITIES: No clubbing, no edema, no cyanosis, 2+ pulses and upper and lower extremities. Right hip incision is covered with surgical dressing, clean dry and intact, no calf tenderness, no numbness or tingling MUSCULOSKELETAL: Muscle strength and tone normal. SPINE: No scoliosis or deformity SKIN: No rashes CENTRAL NERVOUS SYSTEM: Somnolent, but arousable, follows some simple commands but not consistently, orientation is difficult to assess, patient moans, but does not verbally respond. No focal deficits, tone is normal in all 4 extremities. - Labs CBC & Chem 7: 11/26/18 04:13 11/26/18 04:13 Labs: Abnormal Lab Results - Last 24 Hours (Table) 11/25/18 11/25/18 11/25/18 Range/Units 11:34 16:54 20:59 WBC (3.8-10.6) k/uL RBC (4.30-5.90) m/uL Hgb (13.0-17.5) gm/dL Hct (39.0-53.0) % RDW (11.5-15.5) % Neutrophils # (1.3-7.7) k/uL Lymphocytes # (1.0-4.8) k/uL Sodium (137-145) mmol/L Chloride (98-107) mmol/L BUN (9-20) mg/dL Creatinine (0.66-1.25) mg/dL Glucose (74-99) mg/dL POC Glucose (mg/dL) 159 H 123 H 137 H (75-99) mg/dL Phosphorus (2.5-4.5) mg/dL 11/26/18 11/26/18 11/26/18 Range/Units 04:13 04:13 07:03 WBC 24.1 H (3.8-10.6) k/uL RBC 2.44 L (4.30-5.90) m/uL Hgb 7.6 L (13.0-17.5) gm/dL Hct 23.8 L (39.0-53.0) % RDW 18.2 H (11.5-15.5) % Neutrophils # 21.1 H (1.3-7.7) k/uL Lymphocytes # 0.7 L (1.0-4.8) k/uL Sodium 133 L (137-145) mmol/L Chloride 95 L (98-107) mmol/L BUN 70 H (9-20) mg/dL Creatinine 8.24 H* (0.66-1.25) mg/dL Glucose 117 H (74-99) mg/dL POC Glucose (mg/dL) 160 H (75-99) mg/dL Phosphorus 6.9 H (2.5-4.5) mg/dL Microbiology - Last 24 Hours (Table) 11/25/18 12:15 Gram Stain - Preliminary Hip - Right Wound Culture - Preliminary 11/25/18 12:15 Anaerobic Culture - Preliminary Hip - Right 11/22/18 14:00 Gram Stain - Preliminary Peritoneal Fluid Body Fluid Culture - Preliminary 11/22/18 11:10 Blood Culture - Preliminary Blood No Growth after 72 hours Assessment and Plan Plan: Assessment: #1. Hypotension, possibly related to narcotic analgesics, and hypovolemia, rule out sepsis. Responded fairly well to fluids and Narcan. Mental status seems to wax and waning, this is felt to be metabolic encephalopathy. #2. Acute postoperative blood loss anemia, an expected outcome of surgery. Hemoglobin is 8.1 today. #3. Lethargy, likely related to hypotension, and narcotic analgesics, /have been discontinued. #4. Rule out sepsis, cultures are pending, however the Gram stain from the peritoneal fluid is negative so far. We'll go ahead and culture the citrus drainage from the right surgical site.. #5. Right hip intratrochanteric fracture, after a mechanical fall, status post right IT hip repair, postop day 6 #6. End-stage renal disease, on peritoneal dialysis #7. History of coronary artery disease with previous stenting #8. History of mild ischemic cardiomyopathy with the EF of 45-50%, and mitral valve insufficiency #9. History of hypertension, hyperlipidemia #10. Diabetes mellitus type 2 #11. History of carotid artery stenosis status post left endarterectomy Plan: Patient is hemodynamically stable, no difficulty breathing, no use of accessory muscles of breathing, he is maintaining good saturations on room air, however his mentation continues to be of concern, patient is somnolent, follows command inconsistently, moans, but does not verbally respond. 2 CTs of the brain were negative, patient did have increase in his white blood cell count, blood cultures remain negative thus far, he remains on empiric coverage in the form of Zosyn. Afebrile. Lung Sounds are clear. Renal profile seems to be stable, he is getting his peritoneal exchanges 4 times a day. The plan is to arrange a transfer to [facility] for neurologic evaluation today. I performed a history & physical examination of the patient and discussed their management with my nurse practitioner, Giovanna Banuelos. I reviewed the nurse practitioner's note and agree with the documented findings and plan of care. Lung sounds are positive for clear breath sounds. The findings and the impression was discussed with the patient. I attest to the documentation by the nurse practitioner. Time with Patient: Less than 30
[2018-11-26] MEDS: INSULIN ASPART 100 UNIT/ML 1 ML 10 ML VIAL SQ SCH ×3 (09:55→17:54)
[2018-11-26] MEDS: ENOXAPARIN 30 MG/0.3 ML SYRINGE SQ SCH (09:56)
[2018-11-26] MEDS: PIPERACILLIN-TAZOBACTAM 3.375 GM in SODIUM CHLORIDE 0.9% 100 ML IVPB SCH (09:56)
[2018-11-26] MEDS: PANTOPRAZOLE 40 MG TABLET PO SCH (09:58)
[2018-11-26] MEDS: FENOFIBRATE 160 MG TAB PO SCH (09:58)
[2018-11-26] MEDS: MIDODRINE 5 MG TAB PO SCH ×3 (09:58→17:54)
[2018-11-26] MEDS: SEVELAMER 800 MG TAB PO SCH ×3 (09:58→17:54)
[2018-11-26] MEDS: ATENOLOL 25 MG TAB PO SCH (09:59)
[2018-11-26] MEDS: SODIUM BICARBONATE TAB 650 MG TAB PO SCH (09:59)
[2018-11-26] MEDS: TAMSULOSIN 0.4 MG CAP.ER.24H PO SCH (09:59)
--- NOTE | 2018-11-26 10:23 | P.PN ---
Subjective Patient is seen in follow-up for end-stage renal disease. He is maintained on peritoneal dialysis. He underwent intramedullary nailing of right intertrochanteric femur fracture on November 19. Currently resting in bed. He was transferred to the ICU on November 21 due to hypotension. Blood pressure is stable. Patient's blood pressure tends to run low in the systolic 90s to low 100s as outpatient. No issues with peritoneal dialysis. He is currently receiving exchanges every 4 hours. Yesterday he was more awake and alert. Today a little bit more lethargic. Vital signs are stable. General: The patient appeared well nourished and normally developed. HEENT: Head exam is unremarkable. Neck is without jugular venous distension. LUNGS: Lungs are clear to auscultation and percussion. Breath sounds decreased. HEART: Rate and Rhythm are regular. First and second heart sounds normal. No murmurs, rubs or gallops. ABDOMEN: Abdominal exam reveals normal bowel sounds. Non-tender and non- distended. No evidence of peritonitis. EXTREMITITES: No clubbing, cyanosis, or edema. Objective - Vital Signs Vital signs: Vital Signs Temp 98.6 F 11/26/18 08:00 Pulse 92 11/26/18 10:00 Resp 34 H 11/26/18 10:00 BP 126/66 11/26/18 10:00 Pulse Ox 93 L 11/26/18 08:00 Intake & Output 11/25/18 11/26/18 11/26/18 18:59 06:59 18:59 Intake Total 750 450 300 Balance 750 450 300 Weight 73.1 kg Intake: IV 750 425 200 Piperacillin-Tazobactam 3 100 75 .375 gm In Sodium Chloride 0.9% 100 ml @ 25 mls/hr IVPB Q12HR [facility] Rx #:[id number] Sodium Chloride 0.9% 1, 650 350 200 000 ml @ 50 mls/hr IV . Q20H [facility] Rx#:[id number] Intake, IV Titration 100 Amount Piperacillin-Tazobactam 3 100 .375 gm In Sodium Chloride 0.9% 100 ml @ 25 mls/hr IVPB Q12HR [facility] Rx #:[id number] Lipid 25 Piperacillin-Tazobactam 3 25 .375 gm In Sodium Chloride 0.9% 100 ml @ 25 mls/hr IVPB Q12HR [facility] Rx #:[id number] Other: Voiding Method CAPD CAPD - Labs CBC & Chem 7: 11/26/18 04:13 11/26/18 04:13 Labs: Abnormal Lab Results - Last 24 Hours (Table) 11/25/18 11/25/18 11/25/18 Range/Units 11:34 16:54 20:59 WBC (3.8-10.6) k/uL RBC (4.30-5.90) m/uL Hgb (13.0-17.5) gm/dL Hct (39.0-53.0) % RDW (11.5-15.5) % Neutrophils # (1.3-7.7) k/uL Lymphocytes # (1.0-4.8) k/uL Sodium (137-145) mmol/L Chloride (98-107) mmol/L BUN (9-20) mg/dL Creatinine (0.66-1.25) mg/dL Glucose (74-99) mg/dL POC Glucose (mg/dL) 159 H 123 H 137 H (75-99) mg/dL Phosphorus (2.5-4.5) mg/dL 11/26/18 11/26/18 11/26/18 Range/Units 04:13 04:13 07:03 WBC 24.1 H (3.8-10.6) k/uL RBC 2.44 L (4.30-5.90) m/uL Hgb 7.6 L (13.0-17.5) gm/dL Hct 23.8 L (39.0-53.0) % RDW 18.2 H (11.5-15.5) % Neutrophils # 21.1 H (1.3-7.7) k/uL Lymphocytes # 0.7 L (1.0-4.8) k/uL Sodium 133 L (137-145) mmol/L Chloride 95 L (98-107) mmol/L BUN 70 H (9-20) mg/dL Creatinine 8.24 H* (0.66-1.25) mg/dL Glucose 117 H (74-99) mg/dL POC Glucose (mg/dL) 160 H (75-99) mg/dL Phosphorus 6.9 H (2.5-4.5) mg/dL Microbiology - Last 24 Hours (Table) 11/25/18 12:15 Gram Stain - Preliminary Hip - Right Wound Culture - Preliminary 11/25/18 12:15 Anaerobic Culture - Preliminary Hip - Right 11/22/18 14:00 Gram Stain - Preliminary Peritoneal Fluid Body Fluid Culture - Preliminary 11/22/18 11:10 Blood Culture - Preliminary Blood No Growth after 72 hours Assessment and Plan Plan: Assessment: 1. End-stage renal disease maintained on peritoneal dialysis. 2. Right intertrochanteric hip fracture secondary to fall status post intramedullary nailing on November 19. 3. Chronic hypotension maintained on midodrine. Stable. 4. Chronic kidney disease mineral bone disease maintained on Renvela. Phosphorus level trending down. 5. Anemia of chronic kidney disease Maintained on Aranesp. 6. Lethargy related to opioids and hypotension. Better. Plan: Maintain PD - 2 L exchanges every 4 hours with 1.5% solution. Avoid opioids. Okay to use Toradol and Tylenol for pain. Maintain normal saline at 50 mL an hour. Potential transfer to another facility for neurologic workup.
[2018-11-26 11:45] LABS: Glucose,Whole Blood 109 mg/dL (75-99)
[2018-11-26 12:02] VITALS: BMI 24.5
[2018-11-26] MEDS: MULTIVITAMINS, THERA 1 EACH TAB PO SCH (12:11)
[2018-11-26] MEDS: DARBEPOETIN ALFA 40 MCG/0.4 ML SYRINGE SQ SCH (12:14)
[2018-11-26] MEDS: SODIUM CHLORIDE 0.9% 1,000 ML IV SCH (16:35)
[2018-11-26 16:42] VITALS: RESP 24; TEMP 97.8
[2018-11-26 17:27] LABS: Glucose,Whole Blood 136 mg/dL (75-99)
[2018-11-26 17:41] VITALS: BP 119/81; PULSE 90
--- NOTE | 2018-11-28 13:22 | DS ---
DISCHARGE SUMMARY DATE OF ADMISSION: 11/18/2018 DATE OF TRANSFER: 11/26/2018 FINAL DIAGNOSES: 1. Right femur IT fracture secondary to fall, POA. 2. Coronary artery disease, prior history of stent. 3. Hyperlipidemia. 4. Essential hypertension. 5. 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 6. End-stage kidney disease on CAPD. 7. Benign prostatic hypertrophy. 8. Anxiety, not otherwise specified. 9. Primary osteoarthritis. PROCEDURE: Right femur fracture with intramedullary nailing. CONSULTATIONS: Dr. Chun from Nephrology; Dr. Smallwood/Dr. Cunha from Critical Care; Dr. Girard from General Surgery. HOSPITAL COURSE: This patient was initially admitted to Dr. Girard then service was changed over to me. Patient presented with right femur fracture. Intramedullary nail was done. Post procedure, patient remained rather lethargic and patient's pain medications were discontinued. Neurontin was discontinued. Zoloft was discontinued. Patient remained to be rather lethargic, but his mentation fluctuated. CT scan of the brain was done x2. No evidence of stroke was found. There were no clinical focal symptoms were present, even the peritoneal dialysate was changed. The patient would wake up for some meals, other times he would remain lethargic. EEG was done that showed metabolic encephalopathy. No seizure activity was reported. On the day of transfer, I discussed with the patient's brother and nephew that we will send the patient down to a higher level of care because we do not have continuous EEG monitoring. There was also some serous leakage from the incision wound that was seen by the orthopedic team on the day of transfer. They did not feel it was infected. The patient had been empirically given Zosyn before. I did give a dose of vancomycin just to make sure as patient's white count had climbed up. I did give a report to the ICU fellow at [facility]. I did tell her why I had given the vancomycin and Zosyn and also did have a neurological workup done there, including a continuous EEG monitoring. Discussion and discharge planning more than 35 minutes. PHYSICAL EXAMINATION: Temperature 98, pulse 83, respiration 24, blood pressure 130/73, pulse ox 93% on 2 L. The patient is lethargic but arousable. Does answer some questions. INVESTIGATIONS: White count 24.1, hemoglobin 7.6, potassium 4, BUN 70, creatinine 8.24. The patient's phosphorus us 6.9. Patient's EEG report is formally not in the chart, but this was read from [facility]ardo Heredia neurologist. CURRENT MEDICATIONS: 1. Dilaudid 12.5 p.o. daily. 2. Lipitor 40 mg p.o. daily. 3. Lopid 600 mg p.o. daily. 4. Midodrine 5 mg p.o. t.i.d. 5. MiraLAX 17 g p.o. daily p.r.n. 6. Sodium bicarb 60 mg p.o. b.i.d. 7. Multivitamin 1 tablet p.o. daily. 8. Prilosec 20 mg p.o. daily. 9. Flomax 0.4 mg p.o. daily. 10.Elemental iron 1 tablet p.o. daily. 11.Tylenol 650 mg q.6. 12.Artificial Tears 1 drop both eyes q.i.d. p.r.n. 13.Aranesp 40 mcg every 7 days. 14.Lovenox 30 mg subcu daily. 15.IV Zosyn 3.375 g IV piggyback q.12. 16.Renvela 24 mg p.o. b.i.d. 17.1 dose of vancomycin given today. DISPOSITION: [facility] Heredia, accepting physician Dr. Murray, telephone #[phone]. [place] / [place]: [id number] /
== END 2018-11-26 18:24 | disposition short-term general hospital (02) | DRG 480 ==
LOC: EC 17:23 → 4SSUR 18:54 → 2SICU 11-21 23:34
PROVIDERS: ADMIT Hospitalist; ATTEND Hospitalist
PROC: 0QH606Z Insertion of Intramedullary Internal Fixation Device into Right Upper Femur, Open Approach (ICD-10-PCS; 2018-11-19)
PROC: 0QS6XZZ Reposition Right Upper Femur, External Approach (ICD-10-PCS; principal; 2018-11-19 18:55)
DX: S72.141A Displaced intertrochanteric fracture of right femur, initial encounter for closed fracture (principal); N18.6 End stage renal disease; G92 Toxic encephalopathy; D62 Acute posthemorrhagic anemia; E87.2 Acidosis; I12.0 Hypertensive chronic kidney disease with stage 5 chronic kidney disease or end stage renal disease; W01.0XXA Fall on same level from slipping, tripping and stumbling without subsequent striking against object, initial encounter; D63.1 Anemia in chronic kidney disease; E11.22 Type 2 diabetes mellitus with diabetic chronic kidney disease; E78.5 Hyperlipidemia, unspecified; E86.1 Hypovolemia; F41.9 Anxiety disorder, unspecified; T40.605A Adverse effect of unspecified narcotics, initial encounter; I25.10 Atherosclerotic heart disease of native coronary artery without angina pectoris; I25.5 Ischemic cardiomyopathy; I34.0 Nonrheumatic mitral (valve) insufficiency; I48.91 Unspecified atrial fibrillation; I95.89 Other hypotension; M19.90 Unspecified osteoarthritis, unspecified site; N40.0 Benign prostatic hyperplasia without lower urinary tract symptoms; R09.02 Hypoxemia; Z79.82 Long term (current) use of aspirin; Z79.899 Other long term (current) drug therapy; Z82.49 Family history of ischemic heart disease and other diseases of the circulatory system; Z95.5 Presence of coronary angioplasty implant and graft; Z99.2 Dependence on renal dialysis; E83.9 Disorder of mineral metabolism, unspecified; Z83.2 Family history of diseases of the blood and blood-forming organs and certain disorders involving the immune mechanism; Z88.5 Allergy status to narcotic agent
CPT/HCPCS: 36415; 36600; 70450; 71045; 73502; 80048; 80053; 82140; 82533; 82805; 83036; 83605; 83735; 84100; 85025; 85610; 85730; 86850; 86900; 86901; 86920; 87040; 87070; 87075; 87205; 93005; 94660; 94760; 99285

== ENCOUNTER 2018-12-18 01:26 | Inpatient (IN) | payer MEDICARE ==
[2018-12-18] MEDS ORDERED: ALBUTEROL NEBULIZED 2.5 MG/3 ML INHALATION STA (02:01)
[2018-12-18] MEDS ORDERED: IPRATROPIUM 0.5 MG/2.5 ML NEBU INHALATION STA (02:01)
[2018-12-18] MEDS ORDERED: methylPREDNISolone SOD SUCCI 125 MG/2 ML VIAL IV STA (02:01)
[2018-12-18] MEDS ORDERED: ONDANSETRON 4 MG/2 ML VIAL IVP STA (02:02)
[2018-12-18 02:21] LABS: Anisocytosis Slight; Basophils % (A) 0 %; Eosinophils % (A) 0 %; HGB 11.4 gm/dL (13.0-17.5); Hypochromasia Moderate; Lymphocytes # (A) 0.8 k/uL (1.0-4.8); Lymphocytes % (A) 4 %; MCH 28.6 pg (25.0-35.0); MCHC 30.7 g/dL (31.0-37.0); MCV 93.2 fL (80.0-100.0); Mean Platelet Volume 6.3; Monocytes # (A) 0.8 k/uL (0-1.0); Monocytes % (A) 4 %; Neutrophils # (A) 16.2 k/uL (1.3-7.7); Neutrophils % (A) 90 %; Platelet Count 313 k/uL (150-450); RBC 3.97 m/uL (4.30-5.90); WBC 17.9 k/uL (3.8-10.6)
[2018-12-18 02:30] LABS: INR 0.8 (<1.2); Partial Thromboplastin Time 23.3 sec (22.0-30.0); Prothrombin Time 9.3 sec (9.0-12.0)
[2018-12-18 02:32] LABS: Albumin 3.1 g/dL (3.5-5.0); Calcium 8.5 mg/dL (8.4-10.2); Potassium 5.2 mmol/L (3.5-5.1); Total Bilirubin 0.8 mg/dL (0.2-1.3); Total Protein 6.1 g/dL (6.3-8.2)
--- NOTE | 2018-12-18 02:38 | XR ---
EXAM: XR Chest, 2 Views CLINICAL HISTORY: ITS.REASON XR Reason: difficulty breathing TECHNIQUE: Frontal and lateral views of the chest. COMPARISON: 11/22/18. FINDINGS: Lungs: Low lung volumes with prominent interstitial and airspace opacities. Pleural space: Trace pleural effusions not excluded. No pneumothorax. Heart: Enlarged cardiomediastinal silhouette. Mediastinum: See above. Bones/joints: Age-indeterminate spinal compression deformities. IMPRESSION: 1. Low lung volumes with prominent interstitial and airspace opacities. Correlate clinically for edema or infection. 2. Trace pleural effusions not excluded. 3. Enlarged cardiomediastinal silhouette.
[2018-12-18 02:47] LABS: Creatine Kinase MB 2.6 ng/mL (0.0-2.4)
[2018-12-18 03:10] LABS: Troponin I 0.068 ng/mL (0.000-0.034)
--- NOTE | 2018-12-18 03:30 | ED ---
SOB HPI - General Source: EMS Mode of arrival: EMS Limitations: no limitations <Misty Florence - Last Filed: 12/18/18 18:55> <Nasir Pressley - Last Filed: 12/20/18 08:59> - General Chief Complaint: Shortness of Breath Stated Complaint: DARRIN Time Seen by Provider: 12/18/18 01:44 - History of Present Illness Initial Comments: 73-year-old male patient with multiple complex medical issues, presents to the emergency department today for evaluation of cough and shortness of breath. Patient states his been having symptoms since last Monday. This is a symptoms have been worsening progressively since. Patient states he was initially coughing up sputum however states that has resolved. He denies any fevers or chills with this. States he does have sore throat and mild ear pain. States he is having nasal congestion. Patient denies any recent rash, shortness breath, chest pain, abdominal pain, nausea, vomiting, diarrhea, constipation, back pain, numbness, tingling, dizziness, weakness, headache, visual changes, or any other complaints. (Misty Florence) - Related Data Home Medications Medication Instructions Recorded Confirmed Gemfibrozil [Lopid] 600 mg PO DAILY 03/06/17 12/18/18 Polyethylene Glycol 3350 [Miralax] 17 gm PO DAILY 07/12/17 12/18/18 Acetaminophen [Tylenol] 975 mg PO Q6H PRN 12/18/18 12/18/18 Acetaminophen-Codeine 300-30mg 1 tab PO Q4H PRN 12/18/18 12/18/18 [Tylenol w/codeine #3] Acetaminophen-Codeine 300-30mg 1 tab PO Q6H PRN 12/18/18 12/18/18 [Tylenol w/codeine #3] Amiodarone [Cordarone] 200 mg PO BID 12/18/18 12/18/18 Biotene Dry Mouth Liquid 15 ml PO DAILY 12/18/18 12/18/18 Bisacodyl [Dulcolax] 10 mg RECTAL DAILY PRN 12/18/18 12/18/18 Calcium Carb-Mag Carb-Folic 1 tab PO AC-TID 12/18/18 12/18/18 [Magnebind 400 Rx] Darbepoetin Kenan [Aranesp] 40 mcg SQ FR@1700 12/18/18 12/18/18 Gentamicin 0.1% Cream 1 applic TOPICAL DAILY 12/18/18 12/18/18 Louann-Tussin 10 ml PO Q4H PRN 12/18/18 12/18/18 INSULIN ASPART (NovoLOG) [NovoLOG See Protocol SQ AC-TID 12/18/18 12/18/18 (formulary)] Insulin Aspart [NovoLOG] See Protocol SQ HS 12/18/18 12/18/18 Lanthanum Carbonate 1,000 mg PO AC-TID 12/18/18 12/18/18 Lidocaine 5% Patch [Lidoderm] 1 patch TOPICAL DAILY 12/18/18 12/18/18 Na Phos,M-B/Na Phos,Di-Ba [Fleet 133 ml RECTAL DAILY PRN 12/18/18 12/18/18 Adult] Nepho Supplement 240 ml PO HS 12/18/18 12/18/18 Ondansetron HCl [Zofran] 4 mg PO Q6H PRN 12/18/18 12/18/18 Pantoprazole Sodium [Protonix] 40 mg PO DAILY@0600 12/18/18 12/18/18 Sevelamer [Renvela] 800 mg PO AC-TID 12/18/18 12/18/18 Velphoro Tablet 500 Mg 500 mg PO DAILY 12/18/18 12/18/18 Vit B Complx C/Folic Acid/Zinc 1 tab PO DAILY@1700 12/18/18 12/18/18 [Renaplex Tablet] predniSONE 20 mg PO DAILY 12/18/18 12/18/18 traMADol HCl [Ultram] 50 mg PO Q6HR PRN 12/18/18 12/18/18 Allergies Allergy/AdvReac Type Severity Reaction Status Date / Time hydromorphone [From Dilaudid] Allergy Hallucinati Verified 12/18/18 09:14 ons garlic AdvReac Diarrhea Verified 12/18/18 09:14 prednisone AdvReac Increased Verified 12/18/18 09:14 Blood Pressure sour cream AdvReac Diarrhea Uncoded 11/18/18 17:35 Review of Systems ROS Other: All systems not noted in ROS Statement are negative. <Misty Florence M - Last Filed: 12/18/18 18:55> ROS Other: All systems not noted in ROS Statement are negative. <LeonilajovanNasir - Last Filed: 12/20/18 08:59> ROS Statement: Those systems with pertinent positive or pertinent negative responses have been documented in the HPI. Past Medical History Past Medical History: Atrial Fibrillation, Coronary Artery Disease (CAD), Diabetes Mellitus, Dialysis, Hyperlipidemia, Hypertension, Renal Disease, Thyroid Disorder Additional Past Medical History / Comment(s): PERITONEAL DIALYSIS (CAPD).Hx. cataracts removed bilat 2003 Hx. kidney biopsy 2012 History of Any Multi-Drug Resistant Organisms: None Reported Past Surgical History: Heart Catheterization With Stent Additional Past Surgical History / Comment(s): FIstula left arm. Hx. carotid artery surgery 2005; left carotid endarterectomy Past Anesthesia/Blood Transfusion Reactions: No Reported Reaction Date of Last Stent Placement:: 2011 Past Psychological History: No Psychological Hx Reported Smoking Status: Never smoker Past Alcohol Use History: None Reported Past Drug Use History: None Reported - Past Family History Father Additional Family Medical History / Comment(s): Hx. father "brights disease" age 47 Mom CHF at 81 Brother(s) Family Medical History: Deep Vein Thrombosis (DVT) Mother Family Medical History: Congestive Heart Failure (CHF) Additional Family Medical History / Comment(s): Mother of CHF at the age of 81yrs. <Misty Florence - Last Filed: 12/18/18 18:55> General Exam Limitations: no limitations General appearance: alert, in no apparent distress, other (This is a well- developed, well-nourished elderly male patient in mild respiratory distress. Vital signs upon presentation are temperature 98.8F, pulse 98, respirations 24 , blood pressure 172/100, pulse ox 100% on room air.) Eye exam: Present: normal appearance, PERRL, EOMI. Absent: scleral icterus, conjunctival injection, periorbital swelling ENT exam: Present: normal exam, normal oropharynx, mucous membranes moist Respiratory exam: Present: respiratory distress (mild), wheezes (inspiratory and expiratory wheezing throughout all lung carnes.), other (Pursed lip breathing). Absent: normal lung sounds bilaterally, rales, rhonchi, stridor Cardiovascular Exam: Present: regular rate, normal rhythm, normal heart sounds. Absent: systolic murmur, diastolic murmur, rubs, gallop, clicks GI/Abdominal exam: Present: soft, normal bowel sounds. Absent: distended, tenderness, guarding, rebound, rigid Neurological exam: Present: alert, oriented X3, CN II-XII intact Psychiatric exam: Present: normal affect, normal mood Skin exam: Present: warm, dry, intact, normal color. Absent: rash <Bantle,Misty M - Last Filed: 12/18/18 18:55> Vital Signs 12/18/18 12/18/18 12/18/18 01:44 02:31 02:40 Temperature 98.8 F Pulse Rate 98 97 97 Pulse Rate [ Pulse Oximetery ] Respiratory 24 22 Rate Blood Pressure 172/100 139/85 Blood Pressure [Right Arm] O2 Sat by Pulse 100 92 L Oximetry 12/18/18 12/18/18 12/18/18 02:50 02:59 03:00 Temperature Pulse Rate 100 101 H 90 Pulse Rate [ Pulse Oximetery ] Respiratory 23 20 Rate Blood Pressure 139/85 137/74 Blood Pressure [Right Arm] O2 Sat by Pulse 100 99 Oximetry 12/18/18 12/18/18 12/18/18 03:10 03:20 03:30 Temperature Pulse Rate 100 98 97 Pulse Rate [ Pulse Oximetery ] Respiratory 24 22 20 Rate Blood Pressure 146/82 146/82 119/78 Blood Pressure [Right Arm] O2 Sat by Pulse 100 98 Oximetry 12/18/18 12/18/18 12/18/18 03:40 04:00 04:20 Temperature Pulse Rate 100 91 97 Pulse Rate [ Pulse Oximetery ] Respiratory 20 20 20 Rate Blood Pressure 130/66 140/80 131/68 Blood Pressure [Right Arm] O2 Sat by Pulse 98 99 99 Oximetry 12/18/18 12/18/18 12/18/18 05:00 05:50 06:30 Temperature Pulse Rate 89 93 87 Pulse Rate [ Pulse Oximetery ] Respiratory 20 18 16 Rate Blood Pressure 99/59 100/55 94/59 Blood Pressure [Right Arm] O2 Sat by Pulse 100 100 Oximetry 12/18/18 12/18/18 12/18/18 08:00 11:56 15:15 Temperature 98.4 F Pulse Rate Pulse Rate [ 85 88 Pulse Oximetery ] Respiratory 16 16 Rate Blood Pressure Blood Pressure 115/64 121/73 [Right Arm] O2 Sat by Pulse 98 98 98 Oximetry Medical Decision Making - Lab Data Result diagrams: 12/18/18 02:12 12/18/18 02:12 - Radiology Data Radiology results: report reviewed, image reviewed <Misty Florence - Last Filed: 12/18/18 18:55> - Lab Data Result diagrams: 12/19/18 05:50 12/19/18 01:20 <Nasir Pressley - Last Filed: 12/20/18 08:59> - Medical Decision Making 73-year-old male patient presented to the emergency department today for evaluation of cough and shortness of breath. Upon arrival patient was quite tachypneic and labored. Exhibited inspiratory and expiratory wheezing and coarse lung sounds in the posterior lung carnes. Labs reviewed and did reveal elevated white blood cell count at 17.9, hemoglobin 11.4, potassium 5.2, BUN 73 , creatinine 9.44, lactic acid 2.4, troponin 0.068, BNP 85,300. He was positive for influenza A. Patient was given breathing treatment and IV steroids , this did not seem to improve his symptoms. We did apply Nitropaste and started patient on BiPAP. Care is handed over to my attending Dr. Pressley at 0430 to follow until disposition per (Misty Florence) I saw this patient in conjunction with the physician physical therapy assistant. I performed independent history and physical exam. Agree with case management. (Nasir Pressley) - Lab Data Lab Results 12/18/18 12/18/18 12/18/18 Range/Units 02:12 02:12 02:12 WBC 17.9 H (3.8-10.6) k/uL RBC 3.97 L (4.30-5.90) m/uL Hgb 11.4 L (13.0-17.5) gm/dL Hct 37.0 L (39.0-53.0) % MCV 93.2 (80.0-100.0) fL MCH 28.6 (25.0-35.0) pg MCHC 30.7 L (31.0-37.0) g/dL RDW 19.0 H (11.5-15.5) % Plt Count 313 (150-450) k/uL Neutrophils % 90 % Lymphocytes % 4 % Monocytes % 4 % Eosinophils % 0 % Basophils % 0 % Neutrophils # 16.2 H (1.3-7.7) k/uL Lymphocytes # 0.8 L (1.0-4.8) k/uL Monocytes # 0.8 (0-1.0) k/uL Eosinophils # 0.0 (0-0.7) k/uL Basophils # 0.0 (0-0.2) k/uL Hypochromasia Moderate Anisocytosis Slight PT (9.0-12.0) sec INR (<1.2) APTT (22.0-30.0) sec Sodium 131 L (137-145) mmol/L Potassium 5.2 H (3.5-5.1) mmol/L Chloride 87 L (98-107) mmol/L Carbon Dioxide 26 (22-30) mmol/L Anion Gap 18 mmol/L BUN 73 H (9-20) mg/dL Creatinine 9.44 H* (0.66-1.25) mg/dL Est GFR (CKD-EPI)AfAm 6 (>60 ml/min/1.73 sqM) Est GFR (CKD-EPI)NonAf 5 (>60 ml/min/1.73 sqM) Glucose 159 H (74-99) mg/dL Lactic Ac Sepsis Rflx Plasma Lactic Acid Zhen (0.7-2.0) mmol/L Calcium 8.5 (8.4-10.2) mg/dL Total Bilirubin 0.8 (0.2-1.3) mg/dL AST 29 (17-59) U/L ALT 33 (21-72) U/L Alkaline Phosphatase 154 H (38-126) U/L Total Creatine Kinase 25 L (55-170) U/L CK-MB (CK-2) 2.6 H (0.0-2.4) ng/mL CK-MB (CK-2) Rel Index 10.4 Troponin I 0.068 H* (0.000-0.034) ng/mL NT-Pro-B Natriuret Pep pg/mL Total Protein 6.1 L (6.3-8.2) g/dL Albumin 3.1 L (3.5-5.0) g/dL Influenza Type A RNA (Not Detectd) Influenza Type B (PCR) (Not Detectd) Group A Strep Rapid (Negative) 12/18/18 12/18/1819 Range/Units 02:12 02:12 02:12 WBC (3.8-10.6) k/uL RBC (4.30-5.90) m/uL Hgb (13.0-17.5) gm/dL Hct (39.0-53.0) % MCV (80.0-100.0) fL MCH (25.0-35.0) pg MCHC (31.0-37.0) g/dL RDW (11.5-15.5) % Plt Count (150-450) k/uL Neutrophils % % Lymphocytes % % Monocytes % % Eosinophils % % Basophils % % Neutrophils # (1.3-7.7) k/uL Lymphocytes # (1.0-4.8) k/uL Monocytes # (0-1.0) k/uL Eosinophils # (0-0.7) k/uL Basophils # (0-0.2) k/uL Hypochromasia Anisocytosis PT 9.3 (9.0-12.0) sec INR 0.8 (<1.2) APTT 23.3 (22.0-30.0) sec Sodium (137-145) mmol/L Potassium (3.5-5.1) mmol/L Chloride (98-107) mmol/L Carbon Dioxide (22-30) mmol/L Anion Gap mmol/L BUN (9-20) mg/dL Creatinine (0.66-1.25) mg/dL Est GFR (CKD-EPI)AfAm (>60 ml/min/1.73 sqM) Est GFR (CKD-EPI)NonAf (>60 ml/min/1.73 sqM) Glucose (74-99) mg/dL Lactic Ac Sepsis Rflx Plasma Lactic Acid Zhen (0.7-2.0) mmol/L Calcium (8.4-10.2) mg/dL Total Bilirubin (0.2-1.3) mg/dL AST (17-59) U/L ALT (21-72) U/L Alkaline Phosphatase (38-126) U/L Total Creatine Kinase (55-170) U/L CK-MB (CK-2) (0.0-2.4) ng/mL CK-MB (CK-2) Rel Index Troponin I (0.000-0.034) ng/mL NT-Pro-B Natriuret Pep pg/mL Total Protein (6.3-8.2) g/dL Albumin (3.5-5.0) g/dL Influenza Type A RNA Detected H (Not Detectd) Influenza Type B (PCR) Not Detected (Not Detectd) Group A Strep Rapid Negative (Negative) 12/18/18 12/18/18 12/18/18 Range/Units 02:12 02:12 03:12 WBC (3.8-10.6) k/uL RBC (4.30-5.90) m/uL Hgb (13.0-17.5) gm/dL Hct (39.0-53.0) % MCV (80.0-100.0) fL MCH (25.0-35.0) pg MCHC (31.0-37.0) g/dL RDW (11.5-15.5) % Plt Count (150-450) k/uL Neutrophils % % Lymphocytes % % Monocytes % % Eosinophils % % Basophils % % Neutrophils # (1.3-7.7) k/uL Lymphocytes # (1.0-4.8) k/uL Monocytes # (0-1.0) k/uL Eosinophils # (0-0.7) k/uL Basophils # (0-0.2) k/uL Hypochromasia Anisocytosis PT (9.0-12.0) sec INR (<1.2) APTT (22.0-30.0) sec Sodium (137-145) mmol/L Potassium (3.5-5.1) mmol/L Chloride (98-107) mmol/L Carbon Dioxide (22-30) mmol/L Anion Gap mmol/L BUN (9-20) mg/dL Creatinine (0.66-1.25) mg/dL Est GFR (CKD-EPI)AfAm (>60 ml/min/1.73 sqM) Est GFR (CKD-EPI)NonAf (>60 ml/min/1.73 sqM) Glucose (74-99) mg/dL Lactic Ac Sepsis Rflx Y Plasma Lactic Acid Zhen 2.4 H* (0.7-2.0) mmol/L Calcium (8.4-10.2) mg/dL Total Bilirubin (0.2-1.3) mg/dL AST (17-59) U/L ALT (21-72) U/L Alkaline Phosphatase (38-126) U/L Total Creatine Kinase (55-170) U/L CK-MB (CK-2) (0.0-2.4) ng/mL CK-MB (CK-2) Rel Index Troponin I (0.000-0.034) ng/mL NT-Pro-B Natriuret Pep 05034 pg/mL Total Protein (6.3-8.2) g/dL Albumin (3.5-5.0) g/dL Influenza Type A RNA (Not Detectd) Influenza Type B (PCR) (Not Detectd) Group A Strep Rapid (Negative) - Radiology Data Two-view x-ray of the chest is obtained. Report was reviewed in its entirety. Impression by Dr. Kenny shows low lung volumes with prominent interstitial and airspace opacities. Correlate clinically for edema or infection. Trace pleural effusions not excluded. Enlarged cardiomediastinal silhouette. (Misty Florence) Disposition <Misty Florence - Last Filed: 12/18/18 18:55> <Nasir Pressley - Last Filed: 12/20/18 08:59> Clinical Impression: End stage renal disease, Dyspnea Disposition: ADMITTED IP TO THIS HOSP Condition: Serious
[2018-12-18] MEDS ORDERED: HYDROcodone/APAP 5-325MG 1 EACH TAB PO STA (04:10)
[2018-12-18] MEDS ORDERED: MORPHINE SULFATE 2 MG/ML SYRINGE IVP STA (04:15)
[2018-12-18] MEDS ORDERED: NITROGLYCERIN OINT 1 INCH/GM PACKET TOPICAL STA (04:15)
[2018-12-18] MEDS ORDERED: ENOXAPARIN 60 MG/0.6 ML SYRINGE SQ STA (04:17)
[2018-12-18] MEDS ORDERED: LEVOFLOXACIN 750MG-D5W PMX 750 MG in DEXTROSE/WATER 1 150ML.BAG IVPB STA (04:20)
[2018-12-18] MEDS ORDERED: PIPERACILLIN-TAZOBACTAM 3.375 GM in SODIUM CHLORIDE 0.9% 100 ML IVPB STA (04:20)
[2018-12-18] MEDS ORDERED: LEVOFLOXACIN 750MG-D5W PMX 750 MG in DEXTROSE/WATER 1 150ML.BAG IVPB SCH (05:00)
[2018-12-18] MEDS ORDERED: ARTIFICIAL TEARS-HYPROMELLOSE DROPS 15 ML BTL BOTH EYES PRN (06:00)
[2018-12-18] MEDS ORDERED: PIPERACILLIN-TAZOBACTAM 3.375 GM in SODIUM CHLORIDE 0.9% 100 ML IVPB SCH (06:00)
[2018-12-18] MEDS ORDERED: ACETAMINOPHEN TAB 325 MG TAB PO SCH (06:00)
[2018-12-18 08:43] LABS: Creatine Kinase MB 2.4 ng/mL (0.0-2.4)
[2018-12-18 08:47] LABS: Troponin I 0.075 ng/mL (0.000-0.034)
[2018-12-18] MEDS ORDERED: SODIUM BICARBONATE TAB 650 MG TAB PO SCH (09:00)
[2018-12-18] MEDS ORDERED: TAMSULOSIN 0.4 MG CAP.ER.24H PO SCH (09:00)
[2018-12-18] MEDS ORDERED: POLYETHYLENE GLYCOL 3350 17 GM POWD.PACK PO PRN (09:00)
[2018-12-18] MEDS ORDERED: SUCROFERRIC OXYHYDROXIDE PO SCH (09:00)
[2018-12-18] MEDS: DIALYSIS (PERIT 4.25%) 2500 ML 106.25 G/2,500 ML BAG INTRAPERIT SCH ×3 (09:49→18:44)
[2018-12-18] MEDS ORDERED: OSELTAMIVIR 60 MG/10 ML ORAL SYRINGE PO STA (10:10)
[2018-12-18] MEDS: ATORVASTATIN 40 MG TAB PO SCH (10:44)
[2018-12-18] MEDS: SEVELAMER 800 MG TAB PO SCH ×2 (10:44→22:29)
[2018-12-18] MEDS: ATENOLOL 12.5 MG TAB PO SCH (10:45)
[2018-12-18] MEDS: ENOXAPARIN 30 MG/0.3 ML SYRINGE SQ SCH (10:45)
[2018-12-18] MEDS: FENOFIBRATE 160 MG TAB PO SCH (10:45)
[2018-12-18] MEDS: MIDODRINE 5 MG TAB PO SCH ×3 (10:45→22:19)
[2018-12-18] MEDS: PANTOPRAZOLE 40 MG TABLET PO SCH (10:45)
[2018-12-18] MEDS: MULTIVITAMINS, THERA 1 EACH TAB PO SCH (12:08)
[2018-12-18 14:44] LABS: Creatine Kinase MB 2.4 ng/mL (0.0-2.4)
[2018-12-18 14:46] LABS: Troponin I 0.075 ng/mL (0.000-0.034)
--- NOTE | 2018-12-18 15:17 | P.CNPUL ---
History of Present Illness Consult date: 12/18/18 Requesting physician: Mary Chavez Reason for consult: dyspnea Chief complaint: Shortness of breath, sore throat, headache, mild abdominal discomfort. History of present illness: This is a 73-year-old white male patient of Dr. Girard, with past medical history of hypertension, hyperlipidemia, CAD with previous stenting, ischemic cardiomyopathy, end-stage renal disease on peritoneal dialysis, carotid artery stenosis status post left endarterectomy, mitral insufficiency. Patient was recently hospitalized after a fall in his driveway going on for mail, and sustaining a right hip fracture. Patient had surgery on his right hip, and was discharged tomorrow with nursing and rehab for therapy. Patient was brought in by EMS on 12/18/2018 for evaluation of shortness of breath, sore throat, headache, mild abdominal discomfort, patient denied any fever, denied any muscle aches. Patient has been having symptoms since last Monday and the are becoming progressively worse. he was initially coughing up some sputum, but not anymore. Have some mild ear pain. No nasal congestion. Denied any recent rash, denied any chest pain, no nausea, vomiting or diarrhea. No back pain, no lightheadedness or dizziness. Chest x-ray showed low lung volumes with prominent interstitial and airspace opacities, trace pleural effusions. Lab work showed a white blood cell count of 17.9, hemoglobin of 11.4, correlation profile was within normal limits, sodium was 131, potassium is 5.2, chloride was 87, CO2 is 26, anion gap was 18, BUN 73, creatinine is 9.4, lactic acid is elevated at 2.4 3.6, troponin is were positive at 0.068, 0.075, 0.075, proBNP was 85,003 100, influenza screen was positive for influenza a. Group A strep was negative. Patient has been afebrile, vitals have been stable, he was started on Tamiflu, and Zosyn and Levaquin for empiric antibiotic coverage. Review of Systems All systems: negative Constitutional: Reports weakness, Denies chills, Denies fever Eyes: denies blurred vision, denies pain Ears, nose, mouth and throat: Denies headache, Denies sore throat Cardiovascular: Denies chest pain, Denies shortness of breath Respiratory: Reports congestion, Reports dyspnea, Denies cough Gastrointestinal: Denies abdominal pain, Denies diarrhea, Denies nausea, Denies vomiting Musculoskeletal: Denies myalgias Integumentary: Denies pruritus, Denies rash Neurological: Denies numbness, Denies weakness Psychiatric: Denies anxiety, Denies depression Endocrine: Denies fatigue, Denies weight change Past Medical History Past Medical History: Atrial Fibrillation, Coronary Artery Disease (CAD), Diabetes Mellitus, Dialysis, GERD/Reflux, Hyperlipidemia, Hypertension, Renal Disease, Thyroid Disorder Additional Past Medical History / Comment(s): R femur fracture with surgery 11/18-post op lethargy, ESRD with CAPD, mineral bone disease, anemia d/t kidney disease, NIDDM type II-diet controlled, neuropathy bilateral feet, compression fractures low back/chronic low back pain, losses balance with bending, constipation. History of Any Multi-Drug Resistant Organisms: None Reported Past Surgical History: Heart Catheterization With Stent, Orthopedic Surgery Additional Past Surgical History / Comment(s): R femur IM nail, L caratid endartectomy, L arm fistula, kidney biopsy, PCI with stent 2011, colonoscopy, bilateral cataract removal/lens implants. Past Anesthesia/Blood Transfusion Reactions: No Reported Reaction Date of Last Stent Placement:: 2011 Smoking Status: Never smoker - Past Family History Father Additional Family Medical History / Comment(s): Hx. father "brights disease" of at age 47 Brother(s) Family Medical History: Deep Vein Thrombosis (DVT) Mother Family Medical History: Congestive Heart Failure (CHF) Additional Family Medical History / Comment(s): Mother of CHF at the age of 81yrs. Medications and Allergies Home Medications Medication Instructions Recorded Confirmed Type Gemfibrozil [Lopid] 600 mg PO DAILY 03/06/17 12/18/18 History Polyethylene Glycol 3350 [Miralax] 17 gm PO DAILY 07/12/17 12/18/18 History Acetaminophen [Tylenol] 975 mg PO Q6H PRN 12/18/18 12/18/18 History Acetaminophen-Codeine 300-30mg 1 tab PO Q4H PRN 12/18/18 12/18/18 History [Tylenol w/codeine #3] Acetaminophen-Codeine 300-30mg 1 tab PO Q6H PRN 12/18/18 12/18/18 History [Tylenol w/codeine #3] Amiodarone [Cordarone] 200 mg PO BID 12/18/18 12/18/18 History Biotene Dry Mouth Liquid 15 ml PO DAILY 12/18/18 12/18/18 History Bisacodyl [Dulcolax] 10 mg RECTAL DAILY PRN 12/18/18 12/18/18 History Calcium Carb-Mag Carb-Folic 1 tab PO AC-TID 12/18/18 12/18/18 History [Magnebind 400 Rx] Darbepoetin Kenan [Aranesp] 40 mcg SQ FR@1700 12/18/18 12/18/18 History Gentamicin 0.1% Cream 1 applic TOPICAL DAILY 12/18/18 12/18/18 History Louann-Tussin 10 ml PO Q4H PRN 12/18/18 12/18/18 History INSULIN ASPART (NovoLOG) [NovoLOG See Protocol SQ AC-TID 12/18/18 12/18/18 History (formulary)] Insulin Aspart [NovoLOG] See Protocol SQ HS 12/18/18 12/18/18 History Lanthanum Carbonate 1,000 mg PO AC-TID 12/18/18 12/18/18 History Lidocaine 5% Patch [Lidoderm] 1 patch TOPICAL DAILY 12/18/18 12/18/18 History Na Phos,M-B/Na Phos,Di-Ba [Fleet 133 ml RECTAL DAILY PRN 12/18/18 12/18/18 History Adult] Nepho Supplement 240 ml PO HS 12/18/18 12/18/18 History Ondansetron HCl [Zofran] 4 mg PO Q6H PRN 12/18/18 12/18/18 History Pantoprazole Sodium [Protonix] 40 mg PO DAILY@0600 12/18/18 12/18/18 History Sevelamer [Renvela] 800 mg PO AC-TID 12/18/18 12/18/18 History Velphoro Tablet 500 Mg 500 mg PO DAILY 12/18/18 12/18/18 History Vit B Complx C/Folic Acid/Zinc 1 tab PO DAILY@1700 12/18/18 12/18/18 History [Renaplex Tablet] predniSONE 20 mg PO DAILY 12/18/18 12/18/18 History traMADol HCl [Ultram] 50 mg PO Q6HR PRN 12/18/18 12/18/18 History Allergies Allergy/AdvReac Type Severity Reaction Status Date / Time hydromorphone [From Dilaudid] Allergy Hallucinati Verified 12/18/18 09:14 ons garlic AdvReac Diarrhea Verified 12/18/18 09:14 prednisone AdvReac Increased Verified 12/18/18 09:14 Blood Pressure sour cream AdvReac Diarrhea Uncoded 11/18/18 17:35 Physical Exam Vitals: Vital Signs Temp Pulse Pulse Resp BP BP Pulse Ox 12/18/18 11:56 88 16 121/73 98 12/18/18 08:00 98.4 F 85 16 115/64 98 12/18/18 06:30 87 16 94/59 100 12/18/18 05:50 93 18 100/55 100 12/18/18 05:00 89 20 99/59 12/18/18 04:20 97 20 131/68 99 12/18/18 04:00 91 20 140/80 99 12/18/18 03:40 100 20 130/66 98 12/18/18 03:30 97 20 119/78 98 12/18/18 03:20 98 22 146/82 12/18/18 03:10 100 24 146/82 100 12/18/18 03:00 90 20 137/74 99 12/18/18 02:59 101 H 12/18/18 02:50 100 23 139/85 100 12/18/18 02:40 97 22 139/85 92 L 12/18/18 02:31 97 12/18/18 01:44 98.8 F 98 24 172/100 100 Intake and Output 12/17/18 12/18/18 12/18/18 22:59 06:59 14:59 Intake Total 100 Balance 100 Intake: Intake, IV Titration 100 Amount Piperacillin-Tazobactam 3 100 .375 gm In Sodium Chloride 0.9% 100 ml @ 25 mls/hr IVPB Q12H [facility] Rx# :[id number] Other: Voiding Method CAPD Weight 59.421 kg GENERAL EXAM: Alert, pleasant, 73-year-old white male comfortable in no apparent distress. HEAD: Normocephalic/atraumatic. EYES: Normal reaction of pupils, equal size. Conjunctiva pink, sclera white. NOSE: Clear with pink turbinates. THROAT: No erythema or exudates. NECK: No masses, no JVD, no thyroid enlargement, no adenopathy. CHEST: No chest wall deformity. Symmetrical expansion. LUNGS: Equal air entry with diminished breath sounds, scattered wheezes, and rhonchi CVS: Regular rate and rhythm, normal S1 and S2, no gallops, no murmurs, no rubs ABDOMEN: Soft, nontender. No hepatosplenomegaly, normal bowel sounds, no guarding or rigidity. EXTREMITIES: No clubbing, no edema, no cyanosis, 2+ pulses and upper and lower extremities. MUSCULOSKELETAL: Muscle strength and tone normal. SPINE: No scoliosis or deformity SKIN: No rashes CENTRAL NERVOUS SYSTEM: Alert and oriented -3. No focal deficits, tone is normal in all 4 extremities. PSYCHIATRIC: Alert and oriented -3. Appropriate affect. Intact judgment and insight. Results - Laboratory Findings CBC and BMP: 12/18/18 02:12 12/18/18 02:12 PT/INR, D-dimer PT 9.3 sec (9.0-12.0) 12/18/18 02:12 INR 0.8 (<1.2) 12/18/18 02:12 Abnormal lab findings: Abnormal Labs 12/18/18 12/18/18 12/18/18 02:12 02:12 02:12 WBC 17.9 H RBC 3.97 L Hgb 11.4 L Hct 37.0 L MCHC 30.7 L RDW 19.0 H Neutrophils # 16.2 H Lymphocytes # 0.8 L Sodium 131 L Potassium 5.2 H Chloride 87 L BUN 73 H Creatinine 9.44 H* Glucose 159 H Plasma Lactic Acid Zhen Alkaline Phosphatase 154 H Total Creatine Kinase 25 L CK-MB (CK-2) 2.6 H Troponin I 0.068 H* Total Protein 6.1 L Albumin 3.1 L Influenza Type A RNA 12/18/18 12/18/18 12/18/18 02:12 02:12 07:31 WBC RBC Hgb Hct MCHC RDW Neutrophils # Lymphocytes # Sodium Potassium Chloride BUN Creatinine Glucose Plasma Lactic Acid Zhen 2.4 H* Alkaline Phosphatase Total Creatine Kinase CK-MB (CK-2) Troponin I 0.075 H* Total Protein Albumin Influenza Type A RNA Detected H 12/18/18 12/18/18 07:31 14:00 WBC RBC Hgb Hct MCHC RDW Neutrophils # Lymphocytes # Sodium Potassium Chloride BUN Creatinine Glucose Plasma Lactic Acid Zhen 3.6 H* Alkaline Phosphatase Total Creatine Kinase CK-MB (CK-2) Troponin I 0.075 H* Total Protein Albumin Influenza Type A RNA - Diagnostic Findings Chest x-ray: report reviewed, image reviewed Additional studies: EKG reviewed Assessment and Plan Plan: Assessment: #1. Dyspnea, multifactorial, related to influenza A infection, acute exacerbation of congestive heart failure, chest x-ray shows prominent interstitial and airspace opacities, trace pleural effusions. Doubt pneumonia #2. Anion gap metabolic acidosis, related to lactic acidosis, rule out sepsis #3. Acute exacerbation of congestive heart failure with mildly impaired left ventricular systolic function #4. Mild hyponatremia #5. Elevated troponins #6. End-stage renal disease, on peritoneal dialysis, patient gets a continuous exchange through the night, and one exchange during the daytime at 1:00 #7. Recent hospitalization related to right hip fracture due to a mechanical fall, patient underwent surgical repair, and was discharged tomorrow nursing and rehab for rehabilitation on 11/28/2018 #8. History of CAD with previous stenting #9. History of mild ischemic cardiomyopathy with EF of 45-50% and mitral valve insufficiency #10. She of hypertension, hyperlipidemia, diabetes mellitus type 2, history of carotid artery stenosis status post left endarterectomy Plan: Continue with current antibiotic coverage, chest x-ray has been reviewed with Dr. Cunha, and she was mostly changes consistent with mild fluid overload, congestive heart failure, doubt pneumonia, but in view of leukocytosis, continue the antibiotics, Tamiflu. Blood culture is pending, group A strep culture was negative. No fever or chills, no cough, or chest congestion, no chest tenderness, no hemoptysis. Patient is fairly comfortable at rest. Denies any chest pain. Continue nebulized bronchodilators. Obtain sputum culture, send peritoneal fluid for culture. We'll continue to follow I performed a history & physical examination of the patient and discussed their management with my nurse practitioner, Giovanna Banuelos. I reviewed the nurse practitioner's note and agree with the documented findings and plan of care. Lung sounds are positive for some scattered rhonchi. The findings and the impression was discussed with the patient. I attest to the documentation by the nurse practitioner. Time with Patient: Greater than 30
[2018-12-18 17:00] LABS: Glucose,Whole Blood 160 mg/dL (75-99)
[2018-12-18] MEDS: AMIODARONE 200 MG TAB PO SCH (18:44)
--- NOTE | 2018-12-18 20:14 | P.HPIM ---
History of Present Illness H&P Date: 12/18/18 Chief Complaint: Severe dyspnea and shortness of breath, severe congestion, influenza, fluid 73-year-old male who is known from [facility] was hospitalized last week with hip fracture post-ORIF who had severe lethargy and change in mental status after surgery was transferred to [facility] where was seen by neurology and evaluated and found to have severe encephalopathy mostly medication related medication were adjusted patient started to feel much better still have no weight bearing on the hip area was transferred to [facility] for rehab. Patient is doing CAPD 4 end-stage renal disease and has been doing well with it continue to decline over ROM the last 12 hours. 2 calling EMS with found to have significant hypoxia with the worsening congestion and cough productive dark phlegm along with significant weight gain and fluid retention. Ended up coming via EMS to demurs department at [facility] where was seen and evaluated his influenza A was positive ration found to be in quite bed fluid overload with pro-BNP was 85,000 patient chest x-ray showed sign of pneumonia as well he was started on Zosyn and Levaquin along with Tamiflu patient will be seen pulmonary and admitted to the hospital with above problem. Review of Systems CONSTITUTIONAL: Well-developed in mild respiratory distress. EYES: No icterus sclerae, no conjunctivitis. EARS, NOSE, MOUTH, THROAT, and FACE: No sore throat, lymphadenopathy, carotid bruits or deformity. RESPIRATORY: Positive dyspnea and shortness of breath. CARDIOVASCULAR: Positive PND orthopnea palpitation. GASTROINTESTINAL: Abdominal distention and ascites from his CAPD. GENITOURINARY: Negative for Hematuria or UTI, no kidney stones. INTEGUMENT/BREAST: Possible right hip pain. HEMATOLOGIC/LYMPHATIC: Negative for bleed or purpura. MUSCULOSKELTAL: Negative for Myalgia or arthralgia. NEURLOGICAL: No LOC, Sz or syncope, blurred vision dizziness or abnormality.. BEHAVIORAL/PSYCH: Negative. ENDOCRINE: Negative. Past Medical History Past Medical History: Atrial Fibrillation, Coronary Artery Disease (CAD), Diabetes Mellitus, Dialysis, Hyperlipidemia, Hypertension, Renal Disease, Thyroid Disorder Additional Past Medical History / Comment(s): PERITONEAL DIALYSIS (CAPD).Hx. cataracts removed bilat 2003 Hx. kidney biopsy 2012 History of Any Multi-Drug Resistant Organisms: None Reported Past Surgical History: Heart Catheterization With Stent Additional Past Surgical History / Comment(s): FIstula left arm. Hx. carotid artery surgery 2005; left carotid endarterectomy Past Anesthesia/Blood Transfusion Reactions: No Reported Reaction Date of Last Stent Placement:: 2011 Past Psychological History: No Psychological Hx Reported Smoking Status: Never smoker Past Alcohol Use History: None Reported Past Drug Use History: None Reported - Past Family History Father Additional Family Medical History / Comment(s): Hx. father "brights disease" age 47 Mom CHF at 81 Brother(s) Family Medical History: Deep Vein Thrombosis (DVT) Mother Family Medical History: Congestive Heart Failure (CHF) Additional Family Medical History / Comment(s): Mother of CHF at the age of 81yrs. Medications and Allergies Home Medications Medication Instructions Recorded Confirmed Type Gemfibrozil [Lopid] 600 mg PO DAILY 03/06/17 12/18/18 History Polyethylene Glycol 3350 [Miralax] 17 gm PO DAILY 07/12/17 12/18/18 History Acetaminophen [Tylenol] 975 mg PO Q6H PRN 12/18/18 12/18/18 History Acetaminophen-Codeine 300-30mg 1 tab PO Q4H PRN 12/18/18 12/18/18 History [Tylenol w/codeine #3] Acetaminophen-Codeine 300-30mg 1 tab PO Q6H PRN 12/18/18 12/18/18 History [Tylenol w/codeine #3] Amiodarone [Cordarone] 200 mg PO BID 12/18/18 12/18/18 History Biotene Dry Mouth Liquid 15 ml PO DAILY 12/18/18 12/18/18 History Bisacodyl [Dulcolax] 10 mg RECTAL DAILY PRN 12/18/18 12/18/18 History Calcium Carb-Mag Carb-Folic 1 tab PO AC-TID 12/18/18 12/18/18 History [Magnebind 400 Rx] Darbepoetin Kenan [Aranesp] 40 mcg SQ FR@1700 12/18/18 12/18/18 History Gentamicin 0.1% Cream 1 applic TOPICAL DAILY 12/18/18 12/18/18 History Louann-Tussin 10 ml PO Q4H PRN 12/18/18 12/18/18 History INSULIN ASPART (NovoLOG) [NovoLOG See Protocol SQ AC-TID 12/18/18 12/18/18 Histo ry (formulary)] Insulin Aspart [NovoLOG] See Protocol SQ HS 12/18/18 12/18/18 History Lanthanum Carbonate 1,000 mg PO AC-TID 12/18/18 12/18/18 History Lidocaine 5% Patch [Lidoderm] 1 patch TOPICAL DAILY 12/18/18 12/18/18 History Na Phos,M-B/Na Phos,Di-Ba [Fleet 133 ml RECTAL DAILY PRN 12/18/18 12/18/18 History Adult] Nepho Supplement 240 ml PO HS 12/18/18 12/18/18 History Ondansetron HCl [Zofran] 4 mg PO Q6H PRN 12/18/18 12/18/18 History Pantoprazole Sodium [Protonix] 40 mg PO DAILY@0600 12/18/18 12/18/18 History Sevelamer [Renvela] 800 mg PO AC-TID 12/18/18 12/18/18 History Velphoro Tablet 500 Mg 500 mg PO DAILY 12/18/18 12/18/18 History Vit B Complx C/Folic Acid/Zinc 1 tab PO DAILY@1700 12/18/18 12/18/18 History [Renaplex Tablet] predniSONE 20 mg PO DAILY 12/18/18 12/18/18 History traMADol HCl [Ultram] 50 mg PO Q6HR PRN 12/18/18 12/18/18 History Allergies Allergy/AdvReac Type Severity Reaction Status Date / Time hydromorphone [From Dilaudid] Allergy Hallucinati Verified 12/18/18 09:14 ons garlic AdvReac Diarrhea Verified 12/18/18 09:14 prednisone AdvReac Increased Verified 12/18/18 09:14 Blood Pressure sour cream AdvReac Diarrhea Uncoded 11/18/18 17:35 Physical Exam Vitals: Vital Signs Temp Pulse Resp BP Pulse Ox 12/18/18 06:30 87 16 94/59 100 12/18/18 05:50 93 18 100/55 100 12/18/18 05:00 89 20 99/59 12/18/18 04:20 97 20 131/68 99 12/18/18 04:00 91 20 140/80 99 12/18/18 03:40 100 20 130/66 98 12/18/18 03:30 97 20 119/78 98 12/18/18 03:20 98 22 146/82 12/18/18 03:10 100 24 146/82 100 12/18/18 03:00 90 20 137/74 99 12/18/18 02:59 101 H 12/18/18 02:50 100 23 139/85 100 12/18/18 02:40 97 22 139/85 92 L 12/18/18 02:31 97 12/18/18 01:44 98.8 F 98 24 172/100 100 Intake and Output 12/17/18 12/18/18 12/18/18 22:59 06:59 14:59 Other: Weight 59.421 kg General Appearance: Alert, cooperative, mild dyspnea he seems older than his age. Neck HEENT: Supple, no lymphadenopathy, no thyroid enlargement, no carotid bruits. Lungs: Decreased breath some bilateral fine rhonchi positive mild crackles in the bases specially the right side with mild inspiratory expiratory wheezes as well. Chest Wall: Chest wall normal expansion with deep inspiration no tenderness and no deformity was found on exam, no costochondral pain or discomfort. Heart: Irregular rhythm and rate S1,S2 +S3, +5 cm JVD. Back: Symmetric, no curvature, ROM normal, no CVA tenderness. Abdomen: Soft positive bowel sound patient had quite Ascites from his CAPD fluid with mild discomfort in the right upper quadrant area. Extremities: Right side incision looks fine with slight edema around it trace edema on the lower side of his neck as well. Pulses: 2+ and symmetric. Skin: Skin color, texture, tugor normal, no rashes or lesions. Neurologic: Alert oriented x3 cranial nerves II through XII intact, no motor deficit, no abnormal balance or gait. Results CBC & Chem 7: 12/18/18 02:12 12/18/18 02:12 Labs: Abnormal Lab Results - Last 24 Hours (Table) 12/18/18 12/18/18 12/18/18 Range/Units 02:12 02:12 02:12 WBC 17.9 H (3.8-10.6) k/uL RBC 3.97 L (4.30-5.90) m/uL Hgb 11.4 L (13.0-17.5) gm/dL Hct 37.0 L (39.0-53.0) % MCHC 30.7 L (31.0-37.0) g/dL RDW 19.0 H (11.5-15.5) % Neutrophils # 16.2 H (1.3-7.7) k/uL Lymphocytes # 0.8 L (1.0-4.8) k/uL Sodium 131 L (137-145) mmol/L Potassium 5.2 H (3.5-5.1) mmol/L Chloride 87 L (98-107) mmol/L BUN 73 H (9-20) mg/dL Creatinine 9.44 H* (0.66-1.25) mg/dL Glucose 159 H (74-99) mg/dL Plasma Lactic Acid Zhen (0.7-2.0) mmol/L Alkaline Phosphatase 154 H (38-126) U/L Total Creatine Kinase 25 L (55-170) U/L CK-MB (CK-2) 2.6 H (0.0-2.4) ng/mL Troponin I 0.068 H* (0.000-0.034) ng/mL Total Protein 6.1 L (6.3-8.2) g/dL Albumin 3.1 L (3.5-5.0) g/dL Influenza Type A RNA (Not Detectd) 12/18/18 12/18/18 12/18/18 Range/Units 02:12 02:12 07:31 WBC (3.8-10.6) k/uL RBC (4.30-5.90) m/uL Hgb (13.0-17.5) gm/dL Hct (39.0-53.0) % MCHC (31.0-37.0) g/dL RDW (11.5-15.5) % Neutrophils # (1.3-7.7) k/uL Lymphocytes # (1.0-4.8) k/uL Sodium (137-145) mmol/L Potassium (3.5-5.1) mmol/L Chloride (98-107) mmol/L BUN (9-20) mg/dL Creatinine (0.66-1.25) mg/dL Glucose (74-99) mg/dL Plasma Lactic Acid Zhen 2.4 H* (0.7-2.0) mmol/L Alkaline Phosphatase (38-126) U/L Total Creatine Kinase (55-170) U/L CK-MB (CK-2) (0.0-2.4) ng/mL Troponin I 0.075 H* (0.000-0.034) ng/mL Total Protein (6.3-8.2) g/dL Albumin (3.5-5.0) g/dL Influenza Type A RNA Detected H (Not Detectd) 12/18/18 Range/Units 07:31 WBC (3.8-10.6) k/uL RBC (4.30-5.90) m/uL Hgb (13.0-17.5) gm/dL Hct (39.0-53.0) % MCHC (31.0-37.0) g/dL RDW (11.5-15.5) % Neutrophils # (1.3-7.7) k/uL Lymphocytes # (1.0-4.8) k/uL Sodium (137-145) mmol/L Potassium (3.5-5.1) mmol/L Chloride (98-107) mmol/L BUN (9-20) mg/dL Creatinine (0.66-1.25) mg/dL Glucose (74-99) mg/dL Plasma Lactic Acid Zhen 3.6 H* (0.7-2.0) mmol/L Alkaline Phosphatase (38-126) U/L Total Creatine Kinase (55-170) U/L CK-MB (CK-2) (0.0-2.4) ng/mL Troponin I (0.000-0.034) ng/mL Total Protein (6.3-8.2) g/dL Albumin (3.5-5.0) g/dL Influenza Type A RNA (Not Detectd) Microbiology - Last 24 Hours (Table) 12/18/18 02:12 Group A Strep Throat Culture - Preliminary Throat Thrombosis Risk Factor Assmnt - DVT/VTE Prophylaxis DVT/VTE Prophylaxis: Pharmacologic Prophylaxis ordered, Mechanical Prophylaxis ordered Assessment and Plan Plan: 1 acute respiratory failure: Combination of pneumonia, influenza, COPD and CHF also patient had metabolic abnormality contributing factor to his respiratory failure. 2 fluid overload: Most likely from systolic congestive heart failure acute on chronic with severe impaired left ventricular function patient has been on medical management with his chronic kidney disease this is a Diana contributing factor this point. Continue CAPD we'll consult nephrology and if patient continued to decline might require hemodialysis in the meanwhile continue medic al management. 3 COPD with mild exacerbation: With see pulmonary and if needed smaller dose of steroids along with updraft treatment and O2. 4 influenza A: Patient was started on Tamiflu for the next 5 days. 5 interstitial pneumonitis: Patient was started on Zosyn and Levaquin awaiting for the final culture. 6 CHF exacerbation: Mostly systolic dysfunction with acute on a chronic heart failure continue diuretics continue current management. 7 elevated troponin: We will consult cardiology repeat CK with troponin 3 and review recent echocardiogram. 8 recent hip fracture: Post ORIF still in rehab at [facility]. 9 end-stage renal disease: On CAPD has been seen nephrology for long time we'll consult nephrology at this point. 10 A. fib with RVR: Patient remain on amiodarone 200 mg twice a day we'll continue on amiodarone his not on any anticoagulation currently. 11 type 2 diabetes: Continue NovoLog per sliding scales. 12 hyperlipidemia: On Lopid 6 in the milligrams daily. 13 chronic anemia: On multivitamins and iron also still on Aranesp on weekly basis. 14 severe GERD/GI prophylaxis: Patient remain on Protonix 40 mg daily. 15 chronic pain syndrome: On pain management patient is on a on tramadol 50 mg 4 times a day as needed. CODE STATUS: Full code. Admit patient to inpatient status for more than 2 nights.
[2018-12-18 20:27] LABS: Glucose,Whole Blood 223 mg/dL (75-99)
[2018-12-18] MEDS: PIPERACILLIN-TAZOBACTAM 3.375 GM in SODIUM CHLORIDE 0.9% 100 ML IVPB SCH (22:54)
[2018-12-18] MEDS: IPRATROPIUM-ALBUTEROL 3 ML NEB INHALATION PRN (23:49)
[2018-12-19 02:25] LABS: Calcium 8.1 mg/dL (8.4-10.2); Potassium 5.5 mmol/L (3.5-5.1)
--- NOTE | 2018-12-19 03:22 | CONS ---
CONSULTATION This patient's medical records reviewed. Old charts reviewed. The history was primarily obtained from the patient's sons as well as old charts. This patient recently underwent surgery for hip fracture and subsequently he was in [facility]. Patient started having fever with chills and sore throat and shortness of breath and also was having mild discomfort. Patient did not had any chest pain. The patient was brought by EMS to the emergency room. The patient was found to have positive influenza A. Chest x-ray also showed bilateral airspace disease and trace pleural effusion. Patient's white count is elevated. The patient's proBNP level is 85,000 and patient's lactic acid level is elevated. The patient's troponin is minimally elevated 0.068, 0.075 and 0.075. The patient has a known history of coronary artery disease with a prior history of stenting and a mild to moderately impaired left ventricular systolic function. PAST MEDICAL HISTORY: Includes a history of a recent right hip fracture, prior history of coronary artery disease, history of atrial fibrillation, history of diabetes, patient is on peritoneal dialysis and end-stage renal disease. HOME MEDICATIONS: Home medications include gemfibrozil, MiraLAX, Tylenol, Cordarone 200 mg b.i.d., insulin, Zofran, Protonix, Renvela and Ultram. PHYSICAL EXAMINATION: At present reveals a 73-year-old gentleman who is appears to be ill-looking. The patient is afebrile. The patient's respiratory rate was 24 in the emergency room, respiratory rate now is 16-18, and blood pressure is 100/60 mmHg. Oxygen saturation is 98%. HEENT examination is negative. Neck is supple. Jugular venous pressure is difficult to assess. Chest is symmetrical. Heart, the PMI is not felt. First and second heart sounds are normal. Lungs examination reveal bilateral basal rales with scattered wheezes noted. Abdomen is soft. Liver and spleen are not enlarged. Extremities, there is a 1+ pedal edema. EKG shows normal sinus rhythm with left ventricular hypertrophy and strain pattern. Patient's creatinine is 9.44, BUN is 73, potassium is 5.2. Chest x-ray is suggestive of bilateral airspace disease which is congestive heart failure. Influenza type A is positive and patient's proBNP level is 85,000. FINAL IMPRESSION: 1. This patient was brought to the emergency room with the complaint of shortness of breath as well as fever and chills. The patient's symptoms are multifactorial. The patient has evidence of positive flu and some fluid overload with a congestive cardiac failure. The patient's proBNP level is significantly increased as compared to in May of 2018. It is 85,000 and it was 8500 before. 2. Known coronary artery disease with a prior history of a stent. 3. The patient has a mild elevation in the troponin which is not suggestive of acute coronary syndrome. RECOMMENDATIONS: I will resume the patient's amiodarone to 200 mg daily. Echo and Doppler study will be obtained and we will discuss with the patient's primary care doctor as well as the family members regarding the long-term anticoagulation. It may be a good idea to treat the patient with Eliquis 5 mg b.i.d. OTTO / LEXIE: [id number] /
[2018-12-19] MEDS: DIALYSIS (PERIT 4.25%) 2500 ML 106.25 G/2,500 ML BAG INTRAPERIT SCH ×4 (03:25→19:46)
[2018-12-19] MEDS ORDERED: LEVOFLOXACIN 750MG-D5W PMX 750 MG in DEXTROSE/WATER 1 150ML.BAG IVPB SCH (05:00)
--- NOTE | 2018-12-19 05:30 | CONS ---
CONSULTATION REASON FOR CONSULT: End-stage renal disease. HISTORY OF PRESENT ILLNESS: The patient is a 73-year-old male with history of end-stage renal disease, on peritoneal dialysis. He was admitted to the hospital with complaints of shortness of breath. The patient was recently discharged from [facility] where he was admitted for confusion. His pain medications and other medications were adjusted. The patient denies any fevers or chills. He has had decreased appetite. His influenza screen was positive for influenza A. The patient has been started on Tamiflu. PAST MEDICAL: Past medical history of atrial fibrillation, coronary artery disease, type 2 diabetes, gastroesophageal reflux disease, hyperlipidemia, hypertension, hypothyroidism, history of right femur fracture with status post surgery on 11/18/2018, PD catheter placement, chronic back pain. Compression fractures, low back, type 2 diabetes with neuropathy. PAST SURGICAL HISTORY: PD catheter placement, cardiac catheterization, coronary stent placement, right femur nail, right carotid artery endarterectomy, left arm AV fistula, colonoscopy, cataract surgery, lens implants. SOCIAL HISTORY: Negative for smoking, drug abuse or alcohol abuse. MEDICATIONS: Medications at home prior to admission included insulin, Aranesp, MagneBind, Dulcolax, Cordarone, Zofran, Protonix, Renvela, [place], prednisone, Ultram, Nepro, MiraLAX, Lopid. ALLERGIES: Include Dilaudid, which causes hallucinations, cardiac causes diarrhea, prednisone causes increased blood pressure. PHYSICAL EXAMINATION: Patient is currently comfortable, awake. He is alert and oriented. He is not in any acute distress. Blood pressure this morning was 115/64, heart rate 85 per minute. He is afebrile. Examination of the heart S1, S2. Examination of lungs bilateral breath sounds are heard. Decreased breath sounds at bases. Abdomen is soft, nontender. Minimal basal crackles are heard. [facility] exam is grossly intact. LABS: Show sodium of 131, potassium 5.2, chloride 87, BUN 73, serum creatinine 9.4. Lactic acid was elevated at 2.4 and then 3.6. Influenza A was positive. X-RAY: Chest x-ray shows evidence of pulmonary vascular congestion. ASSESSMENT: 1. End-stage renal disease on peritoneal dialysis. We will continue with current PD exchanges. He is currently using 4.25% exchanges q.3 hours. I will switch that tomorrow to 4.25% solutions alternating with 2.5% solutions. 2. Volume overload. Expect improvement with current PD exchanges. Decrease UF by tomorrow. 3. Influenza A, maintained on Tamiflu with possible pneumonia. 4. Lactic acidosis related to ongoing infection. 5. Anemia of chronic disease. 6. Chronic kidney disease mineral bone disorder maintained on and Renvela as an outpatient. PLAN: Continue current PD exchanges to help increase UF. Continue antibiotics. Continue with Tamiflu. Repeat labs in a.m. Monitor potassium levels. Maintain patient on midodrine as well. Thank you for this consultation. We will continue to follow the patient with you during his hospitalization. MMODL / IJN: [id number] /
[2018-12-19 06:13] LABS: Glucose,Whole Blood 180 mg/dL (75-99)
[2018-12-19 06:26] LABS: Anisocytosis Slight; Basophils % (A) 0 %; Eosinophils % (A) 0 %; HCT 34.5 % (39.0-53.0); HGB 10.5 gm/dL (13.0-17.5); Hypochromasia Moderate; Lymphocytes # (A) 0.4 k/uL (1.0-4.8); Lymphocytes % (A) 3 %; MCH 28.7 pg (25.0-35.0); MCHC 30.3 g/dL (31.0-37.0); MCV 94.5 fL (80.0-100.0); Macrocytosis Slight; Mean Platelet Volume 7.1; Monocytes # (A) 0.6 k/uL (0-1.0); Monocytes % (A) 4 %; Neutrophils # (A) 13.9 k/uL (1.3-7.7); Neutrophils % (A) 93 %; Platelet Count 262 k/uL (150-450); RBC 3.65 m/uL (4.30-5.90); RDW 18.5 % (11.5-15.5)
[2018-12-19] MEDS: INSULIN ASPART (NovoLOG) 100 UNIT/ML VIAL SQ SCH ×4 (07:03→20:34)
[2018-12-19] MEDS: IPRATROPIUM-ALBUTEROL 3 ML NEB INHALATION PRN ×4 (07:23→20:49)
[2018-12-19] MEDS: ATORVASTATIN 40 MG TAB PO SCH (10:01)
[2018-12-19] MEDS: MIDODRINE 5 MG TAB PO SCH ×2 (10:01→18:46)
[2018-12-19] MEDS: FENOFIBRATE 160 MG TAB PO SCH (10:01)
[2018-12-19] MEDS: ATENOLOL 12.5 MG TAB PO SCH (10:01)
[2018-12-19] MEDS: ENOXAPARIN 30 MG/0.3 ML SYRINGE SQ SCH (10:01)
[2018-12-19] MEDS: SEVELAMER 800 MG TAB PO SCH ×2 (10:01→20:17)
[2018-12-19] MEDS: AMIODARONE 200 MG TAB PO SCH (10:01)
[2018-12-19] MEDS: PANTOPRAZOLE 40 MG TABLET PO SCH (10:03)
[2018-12-19] MEDS: PIPERACILLIN-TAZOBACTAM 3.375 GM in SODIUM CHLORIDE 0.9% 100 ML IVPB SCH ×2 (10:07→18:46)
--- NOTE | 2018-12-19 11:31 | ECHOF ---
Referral Reason:chf MEASUREMENTS -------- HEIGHT: 170.2 cm WEIGHT: 59.4 kg BP: 121/73 RVIDd: 2.5 cm (< 3.3) IVSd: 1.1 cm (0.6 - 1.1) LVIDd: 5.0 cm (3.9 - 5.3) LVPWd: 1.0 cm (0.6 - 1.1) IVSs: 1.1 cm LVIDs: 4.0 cm LVPWs: 1.2 cm LAESV Index (A-L): 40.66 ml/m Ao Diam: 3.0 cm (2.0 - 3.7) AV Cusp: 1.3 cm (1.5 - 2.6) LA Diam: 4.1 cm (2.7 - 3.8) MV EXCURSION: 15.618 mm (> 18.000) MV EF SLOPE: 88 mm/s (70 - 150) EPSS: 2.1 cm MV E Michael: 0.72 m/s MV DecT: 243 ms MV A Michael: 1.15 m/s MV E/A Ratio: 0.62 RAP: 5.00 mmHg RVSP: 33.38 mmHg FINDINGS -------- Sinus rhythm. This was a technically good study. The left ventricular size is normal. Left ventricular wall thickness is normal. Overall left vent ricular systolic function is severely impaired with, an EF between 25 - 30 %. Inferior Hypokinesis Septal Hypokinesis The right ventricle is normal in size and function. LA is severely dilated >40 ml/m2 RA appears enlarged. Aortic valve is trileaflet and is mildly thickened. There is no evidence of aortic regurgitation. There is no evidence of aortic stenosis. The mitral valve leaflets are mildly thickened. Mild mitral annular calcification present. Mild m itral regurgitation is present. Mild tricuspid regurgitation present. There is borderline pulmonary hypertension. The right ventr icular systolic pressure, as measured by Doppler, is 33.38mmHg. Trace/mild (physiologic) pulmonic regurgitation. The aortic root size is normal. Normal inferior vena cava with normal inspiratory collapse consistent with estimated right atrial pre ssure of 5 mmHg. There is no pericardial effusion. CONCLUSIONS -------- 1. Sinus rhythm. 2. This was a technically good study. 3. The left ventricular size is normal. 4. Left ventricular wall thickness is normal. 5. Overall left ventricular systolic function is severely impaired with, an EF between 25 - 30 %. 6. Inferior Hypokinesis 7. Septal Hypokinesis 8. LA is severely dilated >40 ml/m2 9. RA appears enlarged. 10. Aortic valve is trileaflet and is mildly thickened. 11. The mitral valve leaflets are mildly thickened. 12. Mild mitral annular calcification present. 13. Mild mitral regurgitation is present. 14. Mild tricuspid regurgitation present. 15. There is borderline pulmonary hypertension. 16. The right ventricular systolic pressure, as measured by Doppler, is 33.38mmHg. 17. Trace/mild (physiologic) pulmonic regurgitation. 18. The aortic root size is normal. 19. There is no pericardial effusion. [place] RECORDER: Malcolm Mcgowan RDCS
[2018-12-19] MEDS ORDERED: BISACODYL 10 MG SUPP RECTAL PRN (11:43)
[2018-12-19 11:53] LABS: Glucose,Whole Blood 137 mg/dL (75-99)
--- NOTE | 2018-12-19 12:04 | P.PN ---
Subjective Progress Note Date: 12/19/18 73-year-old male who is known from [facility] was hospitalized last week with hip fracture post-ORIF who had severe lethargy and change in mental status after surgery was transferred to [facility] where was seen by neurology and evaluated and found to have severe encephalopathy mostly medication related medication were adjusted patient started to feel much better still have no weight bearing on the hip area was transferred to [facility] for rehab. Patient is doing CAPD 4 end-stage renal disease and has been doing well with it continue to decline over ROM the last 12 hours. 2 calling EMS with found to have significant hypoxia with the worsening congestion and cough pro ductive dark phlegm along with significant weight gain and fluid retention. Ended up coming via EMS to demurs department at [facility] where was seen and evaluated his influenza A was positive ration found to be in quite bed fluid overload with pro-BNP was 85,000 patient chest x-ray showed sign of pneumonia as well he was started on Zosyn and Levaquin along with Tamiflu patient will be seen pulmonary and admitted to the hospital with above problem. 12/19: Patient is receiving CAPD managed by Dr. Wilkinson. The removed significant fluid last night. Chest x-ray was ordered this morning. The patient has been seen by pulmonary medicine for multifactorial dyspnea but doubt pneumonia but we'll plan to continue antibiotics. Cardiology is following for heart failure and fluid overload. They have decreased amiodarone to 200 mg daily and also recommend starting eliquis 5 mg twice daily. Acute coronary syndrome ruled out. Echocardiogram reveals EF 25-30% with LA severely dilated, mild mitral regurgitation, mild tricuspid regurgitation, borderline pulmonary hypertension. Review of Systems CONSTITUTIONAL: No fever no chills EYES: No icterus sclerae, no conjunctivitis. EARS, NOSE, MOUTH, THROAT, and FACE: No sore throat, lymphadenopathy, carotid bruits or deformity. RESPIRATORY: Positive dyspnea and shortness of breath. CARDIOVASCULAR: Positive PND orthopnea palpitation. GASTROINTESTINAL: Abdominal distention and ascites from his CAPD. GENITOURINARY: Negative for Hematuria or UTI, no kidney stones. INTEGUMENT/BREAST: Possible right hip pain. HEMATOLOGIC/LYMPHATIC: Negative for bleed or purpura. MUSCULOSKELTAL: Negative for Myalgia or arthralgia. NEURLOGICAL: No LOC, Sz or syncope, blurred vision dizziness or abnormality.. BEHAVIORAL/PSYCH: Negative. ENDOCRINE: Negative. Objective - Vital Signs Vital signs: Vital Signs Temp 97.5 F L 12/19/18 04:00 Pulse 88 12/19/18 07:39 Resp 23 12/19/18 04:00 BP 118/69 12/19/18 04:00 Pulse Ox 96 12/19/18 07:25 Intake & Output 12/18/18 12/19/18 12/19/18 18:59 06:59 18:59 Intake Total 100 190 Balance 100 190 Weight 56 kg Intake: IV 30 Invasive Line 1 30 Intake, IV Titration 100 100 Amount Piperacillin-Tazobactam 3 100 100 .375 gm In Sodium Chloride 0.9% 100 ml @ 25 mls/hr IVPB Q12H [facility] Rx# :[id number] Oral 60 Other: Voiding Method CAPD CAPD # Voids 1 - Exam General Appearance: Alert, cooperative, he seems older than his age. Neck HEENT: Supple, no lymphadenopathy, no thyroid enlargement, no carotid bruits. Lungs: Decreased breath some bilateral fine rhonchi positive mild crackles in the bases specially the right side with mild inspiratory expiratory wheezes as well. Chest Wall: Chest wall normal expansion with deep inspiration no tenderness and no deformity was found on exam, no costochondral pain or discomfort. Heart: Irregular rhythm and rate S1,S2 +S3, +5 cm JVD. Back: Symmetric, no curvature, ROM normal, no CVA tenderness. Abdomen: Soft positive bowel sound patient had quite Ascites from his CAPD fluid with mild discomfort in the right upper quadrant area. Extremities: Right side incision looks fine with slight edema around it trace edema on the lower side of his neck as well. Pulses: 2+ and symmetric. Skin: Skin color, texture, tugor normal, no rashes or lesions. Neurologic: Alert oriented x3 cranial nerves II through XII intact, no motor deficit, gait not assessed. - Labs CBC & Chem 7: 12/19/18 05:50 12/19/18 01:20 Labs: Abnormal Lab Results - Last 24 Hours (Table) 12/18/18 12/18/18 12/18/18 Range/Units 07:31 07:31 14:00 WBC (3.8-10.6) k/uL RBC (4.30-5.90) m/uL Hgb (13.0-17.5) gm/dL Hct (39.0-53.0) % MCHC (31.0-37.0) g/dL RDW (11.5-15.5) % Neutrophils # (1.3-7.7) k/uL Lymphocytes # (1.0-4.8) k/uL Sodium (137-145) mmol/L Potassium (3.5-5.1) mmol/L Chloride (98-107) mmol/L BUN (9-20) mg/dL Creatinine (0.66-1.25) mg/dL Glucose (74-99) mg/dL POC Glucose (mg/dL) (75-99) mg/dL Plasma Lactic Acid Zhen 3.6 H* (0.7-2.0) mmol/L Calcium (8.4-10.2) mg/dL Troponin I 0.075 H* 0.075 H* (0.000-0.034) ng/mL 12/18/18 12/18/18 12/19/18 Range/Units 16:55 20:25 01:20 WBC (3.8-10.6) k/uL RBC (4.30-5.90) m/uL Hgb (13.0-17.5) gm/dL Hct (39.0-53.0) % MCHC (31.0-37.0) g/dL RDW (11.5-15.5) % Neutrophils # (1.3-7.7) k/uL Lymphocytes # (1.0-4.8) k/uL Sodium 130 L (137-145) mmol/L Potassium 5.5 H (3.5-5.1) mmol/L Chloride 90 L (98-107) mmol/L BUN 78 H (9-20) mg/dL Creatinine 9.22 H* (0.66-1.25) mg/dL Glucose 118 H (74-99) mg/dL POC Glucose (mg/dL) 160 H 223 H (75-99) mg/dL Plasma Lactic Acid Zhen (0.7-2.0) mmol/L Calcium 8.1 L (8.4-10.2) mg/dL Troponin I (0.000-0.034) ng/mL 12/19/18 12/19/18 Range/Units 05:50 06:11 WBC 15.0 H (3.8-10.6) k/uL RBC 3.65 L (4.30-5.90) m/uL Hgb 10.5 L (13.0-17.5) gm/dL Hct 34.5 L (39.0-53.0) % MCHC 30.3 L (31.0-37.0) g/dL RDW 18.5 H (11.5-15.5) % Neutrophils # 13.9 H (1.3-7.7) k/uL Lymphocytes # 0.4 L (1.0-4.8) k/uL Sodium (137-145) mmol/L Potassium (3.5-5.1) mmol/L Chloride (98-107) mmol/L BUN (9-20) mg/dL Creatinine (0.66-1.25) mg/dL Glucose (74-99) mg/dL POC Glucose (mg/dL) 180 H (75-99) mg/dL Plasma Lactic Acid Zhen (0.7-2.0) mmol/L Calcium (8.4-10.2) mg/dL Troponin I (0.000-0.034) ng/mL Microbiology - Last 24 Hours (Table) 12/18/18 02:12 Blood Culture - Preliminary Blood No Growth after 24 hours 12/18/18 20:38 Gram Stain - Preliminary Peritoneal Fluid Body Fluid Culture - Preliminary 12/18/18 02:12 Group A Strep Throat Culture - Preliminary Throat Assessment and Plan Plan: 1 acute respiratory failure: Combination of possible pneumonia not ruled out, influenza A, and acute on chronic heart failure. Patient to continue CAPD, Du oNeb treatments, Levaquin, Zosyn. acute coronary syndrome ruled out by cardiology. 2 fluid overload: acute on chronic systolic heart failure with severe impaired left ventricular function patient has been on medical management with his chronic kidney disease this is a contributing factor this point. Continue CAPD we'll consult nephrology and if patient continued to decline might require hemodialysis in the meanwhile continue medical management. 3 COPD: With see pulmonary and if needed smaller dose of steroids along with updraft treatment and O2. 4 influenza A: Patient was started on Tamiflu completed. 5 interstitial pneumonitis: Patient was started on Zosyn and Levaquin awaiting for the final culture. 6 CHF exacerbation: Mostly systolic dysfunction with acute on a chronic heart failure continue diuretics continue current management. 7 elevated troponin: Cardiology consult appreciated. Acute coronary syndrome ruled out. 8 recent hip fracture: Post ORIF still in rehab at [facility]. 9 end-stage renal disease: On CAPD has been seen nephrology for long time we'll consult nephrology at this point. 10 A. fib with RVR: Amiodarone adjusted by cardiology to 200 mg daily. Patient may need eliquis 5 mg twice daily. 11 type 2 diabetes: Continue NovoLog per sliding scales. 12 hyperlipidemia: On Lopid 6 in the milligrams daily. 13 chronic anemia: On multivitamins and iron also still on Aranesp on weekly basis. 14 severe GERD/GI prophylaxis: Patient remain on Protonix 40 mg daily. 15 chronic pain syndrome: On pain management patient is on a on tramadol 50 mg 4 times a day as needed. CODE STATUS: Full code. Discharge plan: Return to [facility] Impression and plan of care have been directed as dictated by the signing physician. Margot Dorado nurse practitioner acting as scribe for signing physician.
[2018-12-19 17:00] LABS: Glucose,Whole Blood 151 mg/dL (75-99)
--- NOTE | 2018-12-19 17:11 | P.PN ---
Subjective Progress Note Date: 12/19/18 A 73-year-old male patient with multiple medical problems and comorbidities including ischemic cardiomyopathy, end-stage renal disease currently on peritoneal dialysis in addition to hypertension and hyperlipidemia, Dr. disease with previous endarterectomy, and mitral insufficiency. The patient came in with increased shortness of breath cough chest congestion wheezing and hypoxemia. Apparently his brother was also sick. The patient was diagnosed having an influenza A tracheobronchitis. He was started on Tamiflu. He was given 1 dose. He was also placed on oxygen therapy and currently is on 3 L of oxygen nasal cannula. He hasn't defervesced and he doesn't have any temperature for the time being. He is undergoing peritoneal dialysis 3 exchanges a day and the dialysate is being altered and modified by nephrology. The patient is producing adequate amount of output during this exchanges. No chest pain. As mentioned he has ischemic cardiomyopathy with an echocardiogram showing impaired LV function of around 20%. No significant signs of fluid overload. No leg edema. The chest x-ray showed cardiomegaly with some mild four-vessel congestion. Still lethargic and weak although improved compared to yesterday. No other significant events overnight. Objective - Vital Signs Vital signs: Vital Signs Temp 97.8 F 12/19/18 12:15 Pulse 80 12/19/18 15:03 Resp 20 12/19/18 12:15 BP 97/50 12/19/18 12:15 Pulse Ox 98 12/19/18 12:15 Intake & Output 12/18/18 12/19/18 12/19/18 18:59 06:59 18:59 Intake Total 100 190 980 Balance 100 190 980 Weight 56 kg 56 kg Intake: IV 30 20 Invasive Line 1 30 20 Intake, IV Titration 100 100 Amount Piperacillin-Tazobactam 3 100 100 .375 gm In Sodium Chloride 0.9% 100 ml @ 25 mls/hr IVPB Q12H [facility] Rx# :[id number] Oral 60 960 Other: Voiding Method CAPD CAPD # Voids 1 # Bowel Movements 1 - Exam General Appearance: Alert, cooperative, he seems older than his age. The patient is on oxygen at 3 L per minute nasal cannula Neck HEENT: Supple, no lymphadenopathy, no thyroid enlargement, no carotid bruits. Lungs: Decreased breath some bilateral fine rhonchi positive mild crackles in the bases specially the right side with mild inspiratory expiratory wheezes as well. Chest Wall: Chest wall normal expansion with deep inspiration no tenderness and no deformity was found on exam, no costochondral pain or discomfort. Heart: Irregular rhythm and rate S1,S2 +S3, +2 cm JVD. Back: Symmetric, no curvature, ROM normal, no CVA tenderness. Abdomen: Soft positive bowel sound patient had quite Ascites from his CAPD fluid with mild discomfort in the right upper quadrant area.The patient has a PD catheter and a PD site is clean and dry and intact. No direct tenderness or rebound tensile guarding at this point in time. Extremities: Right side incision looks fine with slight edema around it trace edema on the lower side of his neck as well. Pulses: 1+ and symmetric. Skin: Skin color, texture, tugor normal, no rashes or lesions. Neurologic: Alert oriented x3 cranial nerves II through XII intact, no motor deficit, gait not assessed. - Labs CBC & Chem 7: 12/19/18 05:50 12/19/18 01:20 Labs: Abnormal Lab Results - Last 24 Hours (Table) 12/18/18 12/18/18 12/19/18 Range/Units 16:55 20:25 01:20 WBC (3.8-10.6) k/uL RBC (4.30-5.90) m/uL Hgb (13.0-17.5) gm/dL Hct (39.0-53.0) % MCHC (31.0-37.0) g/dL RDW (11.5-15.5) % Neutrophils # (1.3-7.7) k/uL Lymphocytes # (1.0-4.8) k/uL Sodium 130 L (137-145) mmol/L Potassium 5.5 H (3.5-5.1) mmol/L Chloride 90 L (98-107) mmol/L BUN 78 H (9-20) mg/dL Creatinine 9.22 H* (0.66-1.25) mg/dL Glucose 118 H (74-99) mg/dL POC Glucose (mg/dL) 160 H 223 H (75-99) mg/dL Calcium 8.1 L (8.4-10.2) mg/dL 12/19/18 12/19/18 12/19/18 Range/Units 05:50 06:11 11:50 WBC 15.0 H (3.8-10.6) k/uL RBC 3.65 L (4.30-5.90) m/uL Hgb 10.5 L (13.0-17.5) gm/dL Hct 34.5 L (39.0-53.0) % MCHC 30.3 L (31.0-37.0) g/dL RDW 18.5 H (11.5-15.5) % Neutrophils # 13.9 H (1.3-7.7) k/uL Lymphocytes # 0.4 L (1.0-4.8) k/uL Sodium (137-145) mmol/L Potassium (3.5-5.1) mmol/L Chloride (98-107) mmol/L BUN (9-20) mg/dL Creatinine (0.66-1.25) mg/dL Glucose (74-99) mg/dL POC Glucose (mg/dL) 180 H 137 H (75-99) mg/dL Calcium (8.4-10.2) mg/dL Microbiology - Last 24 Hours (Table) 12/18/18 02:12 Blood Culture - Preliminary Blood No Growth after 24 hours 12/18/18 20:38 Gram Stain - Preliminary Peritoneal Fluid Body Fluid Culture - Preliminary Assessment and Plan Plan: Assessment 1 acute hypoxic respiratory failure secondary to an acute influenza pulmonary infection/check a bronchitis. Pneumonia is doubtful 2 acute CHF exacerbation. The patient has systolic dysfunction with an ejection fraction of around 25% based on the most recent echocardiogram 3 end-stage renal disease on peritoneal dialysis 4 troponin leak 5 recent ORIF for right hip fracture 6 chronic atrial fibrillation maintained on amiodarone and oral Eliquis 7 diabetes mellitus type 2 8 hyperlipidemia 9 chronic anemia 10 debilitation and impaired performance and functional status secondary to above-mentioned comorbidities Plan Continue treatment of influenza A infection. The patient received Tamiflu. The patient will be continued on DuoNeb neb treatments around the clock. Wean off FiO2 as tolerated. Management of renal failure and peritoneal dialysis per nephrology. The patient was receiving 4.25% dextrose solution exchanges. Echo results were noted. We'll continue to follow make further recommendations based on her progress.
[2018-12-19] MEDS: CALCIUM CARB-MAG CARB-FOLIC 1 EACH TAB PO SCH ×2 (18:32→18:46)
[2018-12-19] MEDS: Acetaminophen-Codeine 300-30mg TAB PO PRN (18:44)
[2018-12-19] MEDS: SERTRALINE 25 MG TAB PO SCH (18:46)
[2018-12-19] MEDS: MULTIVITAMINS, THERA 1 EACH TAB PO SCH (18:46)
--- NOTE | 2018-12-19 19:23 | XR ---
EXAMINATION TYPE: XR chest 2V DATE OF EXAM: 12/19/2018 COMPARISON: NONE HISTORY: Heart failure TECHNIQUE: Frontal and lateral views of the chest are obtained. FINDINGS: There is patchy infiltrate and atelectasis in the lower lung carnes. Heart is enlarged. Th oracic aorta is atheromatous. There are chest leads. Heart appears slightly enlarged. There is mild p ulmonary interstitial edema. IMPRESSION: There are increasing interstitial infiltrates and edema compared to last exam yesterday. This could be worsening congestive heart failure.
[2018-12-19] MEDS: DIALYSIS (PERIT 2.5%) 2,500 ML 62.5 G/2,500 ML BAG INTRAPERIT SCH (19:55)
[2018-12-19 20:25] LABS: Glucose,Whole Blood 151 mg/dL (75-99)
[2018-12-19] MEDS ORDERED: [UNRECOGNIZED DRUG - OTHER] PO SCH (21:00)
--- NOTE | 2018-12-19 23:50 | PN ---
PROGRESS NOTE The patient is seen for followup for end-stage renal disease. He was admitted to the hospital for shortness of breath. He did have evidence of volume overload and tested positive for influenza A. This morning, patient was seen and he remains short of breath and he has had good ultrafiltration with peritoneal dialysis overnight. OTTO / WILBERTON: [id number] /
--- NOTE | 2018-12-19 23:59 | PN ---
PROGRESS NOTE Patient is seen for followup for end-stage renal disease. He was admitted to the hospital with complaints of shortness of breath. He was found to be in volume overload and he tested positive for influenza A. Patient has had good ultrafiltration with peritoneal dialysis since yesterday. He, however, remained short of breath and required BiPAP last night. On examination this morning, blood pressure was 97/50, heart rate of 80 per minute. Patient was afebrile. EXAMINATION OF THE HEART: S1 and S2. EXAMINATION OF LUNGS: Decreased breath sounds at the bases. Minimal basal crackles are heard. ABDOMEN: Soft, non-tender. Examination of lower extremities shows no significant edema. Labs show sodium 130, potassium 5.5, BUN 78, serum creatinine 9.2, hemoglobin 10.5 g/dL. ASSESSMENT: 1. End-stage renal disease, on peritoneal dialysis, maintained on 4.25% solutions. Patient has had good ultrafiltrations. I will start alternating the 4.25% solution with 2.5% solutions, given his slightly low blood pressure and high UF. I will also repeat a chest x-ray. Continue with the Tamiflu for the influenza. 2. Volume overload, slowly improving. 3. Hyperkalemia. Expect improvement with continued dialysis. Avoid constipation. 4. Influenza A, currently maintained on Tamiflu. 5. Chronic kidney disease mineral bone disorder. 6. Cardiomyopathy; ejection fraction 20%. 7. Acute hypoxic respiratory failure secondary to influenza as well as volume overload. 8. Type 2 diabetes. 9. Recent open reduction internal fixation of right hip. PLAN: Change dialysis to 2.5% solutions. Continue current volumes and repeat labs in a.m. Avoid constipation. MMODL / IJN: [id number] /
[2018-12-20] MEDS: DIALYSIS (PERIT 2.5%) 2,500 ML 62.5 G/2,500 ML BAG INTRAPERIT SCH ×4 (01:07→18:52)
[2018-12-20] MEDS: MIDODRINE 5 MG TAB PO SCH ×4 (01:08→20:46)
[2018-12-20] MEDS: PIPERACILLIN-TAZOBACTAM 3.375 GM in SODIUM CHLORIDE 0.9% 100 ML IVPB SCH ×2 (05:36→20:46)
[2018-12-20] MEDS: INSULIN ASPART (NovoLOG) 100 UNIT/ML VIAL SQ SCH ×4 (06:12→20:47)
[2018-12-20 06:14] LABS: Glucose,Whole Blood 127 mg/dL (75-99)
[2018-12-20] MEDS: CALCIUM CARB-MAG CARB-FOLIC 1 EACH TAB PO SCH ×3 (07:04→17:49)
[2018-12-20] MEDS ORDERED: BIOTENE DRY MOUTH PO SCH (09:00)
[2018-12-20] MEDS: IPRATROPIUM-ALBUTEROL 3 ML NEB INHALATION PRN ×4 (09:01→20:09)
[2018-12-20] MEDS: SEVELAMER 800 MG TAB PO SCH ×2 (09:56→20:46)
[2018-12-20] MEDS: FENOFIBRATE 160 MG TAB PO SCH (09:56)
[2018-12-20] MEDS: GENTAMICIN 0.1% CREAM 15 GM TUBE TOPICAL SCH (09:56)
[2018-12-20] MEDS: ATORVASTATIN 40 MG TAB PO SCH (09:56)
[2018-12-20] MEDS: AMIODARONE 200 MG TAB PO SCH (09:56)
[2018-12-20] MEDS: ATENOLOL 12.5 MG TAB PO SCH (09:56)
[2018-12-20] MEDS: PANTOPRAZOLE 40 MG TABLET PO SCH (09:56)
[2018-12-20] MEDS: SERTRALINE 25 MG TAB PO SCH (09:56)
[2018-12-20] MEDS: ENOXAPARIN 30 MG/0.3 ML SYRINGE SQ SCH (09:56)
[2018-12-20] MEDS: LIDOCAINE 5% PATCH TOPICAL SCH (09:57)
[2018-12-20] MEDS: VELPHORO 500 MG PO SCH (09:59)
[2018-12-20 11:43] LABS: Glucose,Whole Blood 138 mg/dL (75-99)
--- NOTE | 2018-12-20 11:46 | P.PN ---
Subjective Progress Note Date: 12/20/18 73-year-old male who is known from [facility] was hospitalized last week with hip fracture post-ORIF who had severe lethargy and change in mental status after surgery was transferred to [facility] where was seen by neurology and evaluated and found to have severe encephalopathy mostly medication related medication were adjusted patient started to feel much better still have no weight bearing on the hip area was transferred to [facility] for rehab. Patient is doing CAPD 4 end-stage renal disease and has been doing well with it continue to decline over ROM the last 12 hours. 2 calling EMS with found to have significant hypoxia with the worsening congestion and cough pro ductive dark phlegm along with significant weight gain and fluid retention. Ended up coming via EMS to demurs department at [facility] where was seen and evaluated his influenza A was positive ration found to be in quite bed fluid overload with pro-BNP was 85,000 patient chest x-ray showed sign of pneumonia as well he was started on Zosyn and Levaquin along with Tamiflu patient will be seen pulmonary and admitted to the hospital with above problem. 12/19: Patient is receiving CAPD managed by Dr. Wilkinson. The removed significant fluid last night. Chest x-ray was ordered this morning. The patient has been seen by pulmonary medicine for multifactorial dyspnea but doubt pneumonia but we'll plan to continue antibiotics. Cardiology is following for heart failure and fluid overload. They have decreased amiodarone to 200 mg daily and also recommend starting eliquis 5 mg twice daily. Acute coronary syndrome ruled out. Echocardiogram reveals EF 25-30% with LA severely dilated, mild mitral regurgitation, mild tricuspid regurgitation, borderline pulmonary hypertension. 12/20: Patient states he is feeling better today with decreased shortness of breath. He remains in influenza isolation. [place] removed moved from his previous hip surgery done yesterday. He is continued on CAPD managed by Dr. Wilkinson. He has been afebrile, blood pressure 93/55, heart rate in the 70s and 80s, pulse ox 99% on 3 L nasal cannula. The chest x-ray from yesterday reveals increasing interstitial infiltrates and edema compared to last exam. This could be worsening heart failure. Review of Systems CONSTITUTIONAL: No fever no chills. EYES: No icterus sclerae, no conjunctivitis. EARS, NOSE, MOUTH, THROAT, and FACE: No sore throat, lymphadenopathy, carotid bruits or deformity. RESPIRATORY: Positive dyspnea and shortness of breath. CARDIOVASCULAR: Positive PND orthopnea palpitation. GASTROINTESTINAL: Abdominal distention and ascites from his CAPD. GENITOURINARY: Negative for Hematuria or UTI, no kidney stones. INTEGUMENT/BREAST: Possible right hip pain. HEMATOLOGIC/LYMPHATIC: Negative for bleed or purpura. MUSCULOSKELTAL: Negative for Myalgia or arthralgia. NEURLOGICAL: No LOC, Sz or syncope, blurred vision dizziness or abnormality. BEHAVIORAL/PSYCH: Negative. ENDOCRINE: Negative. Objective - Vital Signs Vital signs: Vital Signs Temp 97.6 F 12/20/18 08:00 Pulse 88 12/20/18 09:19 Resp 16 12/20/18 08:00 BP 93/55 12/20/18 08:00 Pulse Ox 99 12/20/18 08:00 Intake & Output 12/19/18 12/20/18 12/20/18 18:59 06:59 18:59 Intake Total 990 230 118 Balance 990 230 118 Weight 56 kg 56 kg Intake: IV 30 30 Invasive Line 1 30 30 Intake, IV Titration 100 Amount Piperacillin-Tazobactam 3 100 .375 gm In Sodium Chloride 0.9% 100 ml @ 25 mls/hr IVPB Q12H [facility] Rx# :[id number] Oral 960 100 118 Other: Voiding Method CAPD CAPD # Voids 1 # Bowel Movements 1 - Exam General Appearance: Alert, cooperative, he seems older than his age. No respiratory distress noted. Neck HEENT: Supple, no lymphadenopathy, no thyroid enlargement, no carotid bruits. Lungs: Decreased breath some bilateral fine rhonchi positive mild crackles in the bases specially the right side with mild inspiratory expiratory wheezes as well. Chest Wall: Chest wall normal expansion with deep inspiration no tenderness and no deformity was found on exam, no costochondral pain or discomfort. Heart: Irregular rhythm and rate S1,S2 +S3, +5 cm JVD. Back: Symmetric, no curvature, ROM normal, no CVA tenderness. Abdomen: Soft positive bowel sound patient had quite Ascites from his CAPD fluid with mild discomfort in the right upper quadrant area. Extremities: Right side incision looks fine with slight edema around it trace edema on the lower side of his neck as well. Pulses: 2+ and symmetric. Skin: Skin color, texture, tugor normal, no rashes or lesions. Neurologic: Alert oriented x3 cranial nerves II through XII intact, no motor deficit, gait not assessed. - Labs CBC & Chem 7: 12/19/18 05:50 12/19/18 01:20 Labs: Abnormal Lab Results - Last 24 Hours (Table) 12/19/18 12/19/18 12/19/18 Range/Units 11:50 16:46 20:22 POC Glucose (mg/dL) 137 H 151 H 151 H (75-99) mg/dL 12/20/18 Range/Units 06:11 POC Glucose (mg/dL) 127 H (75-99) mg/dL Microbiology - Last 24 Hours (Table) 12/18/18 02:12 Group A Strep Throat Culture - Final Throat 12/18/18 02:12 Blood Culture - Preliminary Blood No Growth after 48 hours 12/18/18 20:38 Gram Stain - Preliminary Peritoneal Fluid Body Fluid Culture - Preliminary Assessment and Plan Plan: 1 acute hypoxic respiratory failure: Combination of possible pneumonia not ruled out, influenza A, and acute on chronic heart failure. Patient to continue CAPD, DuoNeb treatments, Levaquin, Zosyn. acute coronary syndrome ruled out by cardiology. 2 fluid overload: acute on chronic systolic heart failure with severe impaired left ventricular function patient has been on medical management with his chronic kidney disease this is a contributing factor this point. Continue CAPD we'll consult nephrology and if patient continued to decline might require hemodialysis in the meanwhile continue medical management. 3 COPD: With see pulmonary and if needed smaller dose of steroids along with updraft treatment and O2. 4 influenza A: Tamiflu completed. 5 interstitial pneumonitis: Patient was started on Zosyn and Levaquin awaiting for the final culture. 6 CHF exacerbation: Mostly systolic dysfunction with acute on a chronic heart failure continue diuretics continue current management. 7 elevated troponin: Cardiology consult appreciated. Acute coronary syndrome ruled out. 8 recent hip fracture: Post ORIF still in rehab at [facility]. 9 end-stage renal disease: On CAPD has been seen nephrology for long time we'll consult nephrology at this point. 10 A. fib with RVR: Amiodarone adjusted by cardiology to 200 mg daily. Patient may need eliquis 5 mg twice daily. 11 type 2 diabetes: Continue NovoLog per sliding scales. 12 hyperlipidemia: On Lopid 6 in the milligrams daily. 13 chronic anemia: On multivitamins and iron also still on Aranesp on weekly basis. 14 severe GERD/GI prophylaxis: Patient remain on Protonix 40 mg daily. 15 chronic pain syndrome: On pain management patient is on a on tramadol 50 mg 4 times a day as needed. CODE STATUS: Full code. Discharge plan: Return to [facility] Impression and plan of care have been directed as dictated by the signing physician. Margot Dorado nurse practitioner acting as scribe for signing physician.
[2018-12-20] MEDS: MULTIVITAMINS, THERA 1 EACH TAB PO SCH (12:55)
[2018-12-20 16:47] LABS: Glucose,Whole Blood 145 mg/dL (75-99)
--- NOTE | 2018-12-20 17:01 | P.PN ---
Subjective Progress Note Date: 12/20/18 A 73-year-old male patient with multiple medical problems and comorbidities including ischemic cardiomyopathy, end-stage renal disease currently on peritoneal dialysis in addition to hypertension and hyperlipidemia, Dr. disease with previous endarterectomy, and mitral insufficiency. The patient came in with increased shortness of breath cough chest congestion wheezing and hypoxemia. Apparently his brother was also sick. The patient was diagnosed having an influenza A tracheobronchitis. He was started on Tamiflu. He was given 1 dose. He was also placed on oxygen therapy and currently is on 3 L of oxygen nasal cannula. He hasn't defervesced and he doesn't have any temperature for the time being. He is undergoing peritoneal dialysis 3 exchanges a day and the dialysate is being altered and modified by nephrology. The patient is producing adequate amount of output during this exchanges. No chest pain. As mentioned he has ischemic cardiomyopathy with an echocardiogram showing impaired LV function of around 20%. No significant signs of fluid overload. No leg edema. The chest x-ray showed cardiomegaly with some mild four-vessel congestion. Still lethargic and weak although improved compared to yesterday. No other significant events overnight. On today's evaluation of 12/20/2018, the patient remains quite lethargic. He is awake and alert and is following commands and answer questions appropriately. He looks very weak and tired and fatigued. No signs of any acute respiratory distress. The patient is still being treated conservatively for an underlying influenza A tracheobronchitis. No significant cough or sputum production. He remains on DuoNeb nebulized treatments around the clock.. . Fluids also was sent from the abdominal cavity and peritoneal cavity and there is also still negative for now. Blood cultures still negative for now. Patient is continuing his peritoneal dialysis under the supervision of nephrology. He is afebrile. He is hemodynamically stable. Pulse oxing 99% oxygen by nasal cannula. The patient did not have a follow-up chest x-ray from today. He remains in droplet isolation. No nausea. No vomiting. No emesis. No other significant events otherwise for now Objective - Vital Signs Vital signs: Vital Signs Temp 97.6 F 12/20/18 12:00 Pulse 92 12/20/18 16:26 Resp 16 12/20/18 16:00 BP 93/58 12/20/18 16:00 Pulse Ox 98 12/20/18 16:12 Intake & Output 12/19/18 12/20/18 12/20/18 18:59 06:59 18:59 Intake Total 990 230 198 Balance 990 230 198 Weight 56 kg 56 kg Intake: IV 30 30 30 Invasive Line 1 30 30 30 Intake, IV Titration 100 Amount Piperacillin-Tazobactam 3 100 .375 gm In Sodium Chloride 0.9% 100 ml @ 25 mls/hr IVPB Q12H [facility] Rx# :[id number] Oral 960 100 168 Other: Voiding Method CAPD CAPD CAPD # Voids 1 # Bowel Movements 1 - Exam General Appearance: Alert, cooperative, he seems older than his age. The patient is on oxygen at 3 L per minute nasal cannula Neck HEENT: Supple, no lymphadenopathy, no thyroid enlargement, no carotid bruits. Lungs: Decreased breath some bilateral fine rhonchi positive mild crackles in the bases specially the right side with mild inspiratory expiratory wheezes as well. Chest Wall: Chest wall normal expansion with deep inspiration no tenderness and no deformity was found on exam, no costochondral pain or discomfort. Heart: Irregular rhythm and rate S1,S2 +S3, +2 cm JVD. Back: Symmetric, no curvature, ROM normal, no CVA tenderness. Abdomen: Soft positive bowel sound patient had quite Ascites from his CAPD fluid with mild discomfort in the right upper quadrant area.The patient has a PD catheter and a PD site is clean and dry and intact. No direct tenderness or rebound tensile guarding at this point in time. Extremities: Right side incision looks fine with slight edema around it trace edema on the lower side of his neck as well. Pulses: 1+ and symmetric. Skin: Skin color, texture, tugor normal, no rashes or lesions. Neurologic: Alert oriented x3 cranial nerves II through XII intact, no motor deficit, gait not assessed. - Labs CBC & Chem 7: 12/19/18 05:50 12/19/18 01:20 Labs: Abnormal Lab Results - Last 24 Hours (Table) 12/19/18 12/19/18 12/20/18 Range/Units 16:46 20:22 06:11 POC Glucose (mg/dL) 151 H 151 H 127 H (75-99) mg/dL 12/20/18 12/20/18 Range/Units 11:38 16:44 POC Glucose (mg/dL) 138 H 145 H (75-99) mg/dL Microbiology - Last 24 Hours (Table) 12/18/18 02:12 Group A Strep Throat Culture - Final Throat 12/18/18 02:12 Blood Culture - Preliminary Blood No Growth after 48 hours 12/18/18 20:38 Gram Stain - Preliminary Peritoneal Fluid Body Fluid Culture - Preliminary Assessment and Plan Plan: Assessment 1 acute hypoxic respiratory failure secondary to an acute influenza pulmonary infection/check a bronchitis. Pneumonia is doubtful 2 acute CHF exacerbation. The patient has systolic dysfunction with an ejection fraction of around 25% based on the most recent echocardiogram 3 end-stage renal disease on peritoneal dialysis 4 troponin leak 5 recent ORIF for right hip fracture 6 chronic atrial fibrillation maintained on amiodarone and oral Eliquis 7 diabetes mellitus type 2 8 hyperlipidemia 9 chronic anemia 10 debilitation and impaired performance and functional status secondary to above-mentioned comorbidities Plan Clinically stable. Still has some post viral generalized weakness and fatigue which should gradually improve. I think the antibiotic coverage is over coverage as the patient is also on a combination of Zosyn and Levaquin. We'll request the primary care team to simplify the antibiotics. He has taken a dose of Tamiflu. He continues his peritoneal dialysis. Continue monitoring the fluid status. Management of cardiomyopathy and atrial fibrillation per cardiology and the patient continues to be on amiodarone and long-term anticoagulation with Eliquis. NovoLog per sliding scale coverage. We'll continue to follow.
[2018-12-20 20:35] LABS: Glucose,Whole Blood 165 mg/dL (75-99)
--- NOTE | 2018-12-21 00:03 | PN ---
PROGRESS NOTE Patient is seen for followup for end-stage renal disease. He is maintained on peritoneal dialysis. Patient has had good ultrafiltrations. Blood pressure is staying on the lower side. PD solutions were changed to 2.5% solutions. His respiratory status has improved significantly today. On examination, blood pressure this morning was 109/62, heart rate of about 90 per minute. Patient is afebrile. EXAMINATION OF THE HEART: S1 and S2. EXAMINATION OF LUNGS: Bilateral breath sounds are heard. Decreased breath sounds at the bases. ABDOMEN: Soft, non-tender. Examination of lower extremities shows no significant edema. Labs are not available from today. Potassium was 5.5 yesterday. ASSESSMENT: 1. End-stage renal disease, maintained on peritoneal dialysis. Continue current PD exchanges. I will decrease the fluid concentration to 2.5% alternating with 1.5% solutions if the blood pressure remains low. 2. Influenza A, maintained on Tamiflu. 3. Chronic kidney disease mineral bone disorder, maintained on Velphoro and. 4. Volume overload, currently improving. 5. History of atrial fibrillation, maintained on Cordarone. 6. Severe cardiomyopathy, ejection fraction 25%. PLAN: Decrease ultrafiltration if blood pressure is further decreased. However, at this time I will continue the 2.5% solutions. Patient has about 200 to 300 mL of ultrafiltration with each exchange. Encourage increased oral intake. MMODL / IJN: [id number] /
[2018-12-21] MEDS: DIALYSIS (PERIT 2.5%) 2,500 ML 62.5 G/2,500 ML BAG INTRAPERIT SCH ×2 (00:27→05:50)
[2018-12-21 07:19] LABS: Anisocytosis Slight; HCT 35.2 % (39.0-53.0); HGB 10.8 gm/dL (13.0-17.5); Hypochromasia Slight; MCH 28.3 pg (25.0-35.0); MCHC 30.7 g/dL (31.0-37.0); MCV 91.9 fL (80.0-100.0); Mean Platelet Volume 6.5; Platelet Count 242 k/uL (150-450); RBC 3.83 m/uL (4.30-5.90); RDW 18.8 % (11.5-15.5); WBC 13.8 k/uL (3.8-10.6)
[2018-12-21] MEDS: CALCIUM CARB-MAG CARB-FOLIC 1 EACH TAB PO SCH ×3 (07:27→19:02)
[2018-12-21] MEDS: LEVOFLOXACIN 500MG-D5W PMX 500 MG in DEXTROSE/WATER 1 100ML.BAG IVPB SCH (07:27)
[2018-12-21] MEDS: INSULIN ASPART (NovoLOG) 100 UNIT/ML VIAL SQ SCH ×4 (07:29→21:32)
[2018-12-21 07:40] LABS: Albumin 2.6 g/dL (3.5-5.0); Calcium 7.9 mg/dL (8.4-10.2); Potassium 4.4 mmol/L (3.5-5.1); Total Bilirubin 0.8 mg/dL (0.2-1.3); Total Protein 5.4 g/dL (6.3-8.2)
[2018-12-21] MEDS: AMIODARONE 200 MG TAB PO SCH (08:05)
[2018-12-21] MEDS: FENOFIBRATE 160 MG TAB PO SCH (08:05)
[2018-12-21] MEDS: PANTOPRAZOLE 40 MG TABLET PO SCH (08:05)
[2018-12-21] MEDS: SERTRALINE 25 MG TAB PO SCH (08:05)
[2018-12-21] MEDS: ATORVASTATIN 40 MG TAB PO SCH (08:05)
[2018-12-21] MEDS: SEVELAMER 800 MG TAB PO SCH ×2 (08:06→21:55)
[2018-12-21] MEDS: Acetaminophen-Codeine 300-30mg TAB PO PRN (08:06)
[2018-12-21] MEDS: MIDODRINE 5 MG TAB PO SCH ×3 (08:07→21:55)
[2018-12-21] MEDS: LIDOCAINE 5% PATCH TOPICAL SCH (08:07)
[2018-12-21] MEDS: ENOXAPARIN 30 MG/0.3 ML SYRINGE SQ SCH (08:07)
[2018-12-21] MEDS: ATENOLOL 12.5 MG TAB PO SCH (08:07)
[2018-12-21] MEDS: IPRATROPIUM-ALBUTEROL 3 ML NEB INHALATION PRN ×4 (08:14→20:15)
[2018-12-21] MEDS: PIPERACILLIN-TAZOBACTAM 3.375 GM in SODIUM CHLORIDE 0.9% 100 ML IVPB SCH ×2 (09:46→19:10)
[2018-12-21 12:00] LABS: Glucose,Whole Blood 107 mg/dL (75-99)
[2018-12-21] MEDS ORDERED: DIALYSIS (PERIT 1.5%) 2,500 ML 37.5 G/2,500 ML BAG INTRAPERIT SCH (12:00)
[2018-12-21 12:01] LABS: Glucose,Whole Blood 129 mg/dL (75-99)
--- NOTE | 2018-12-21 13:50 | P.PN ---
Subjective Progress Note Date: 12/21/18 73-year-old male who is known from [facility] was hospitalized last week with hip fracture post-ORIF who had severe lethargy and change in mental status after surgery was transferred to [facility] where was seen by neurology and evaluated and found to have severe encephalopathy mostly medication related medication were adjusted patient started to feel much better still have no weight bearing on the hip area was transferred to [facility] for rehab. Patient is doing CAPD 4 end-stage renal disease and has been doing well with it continue to decline over ROM the last 12 hours. 2 calling EMS with found to have significant hypoxia with the worsening congestion and cough pro ductive dark phlegm along with significant weight gain and fluid retention. Ended up coming via EMS to demurs department at [facility] where was seen and evaluated his influenza A was positive ration found to be in quite bed fluid overload with pro-BNP was 85,000 patient chest x-ray showed sign of pneumonia as well he was started on Zosyn and Levaquin along with Tamiflu patient will be seen pulmonary and admitted to the hospital with above problem. 12/19: Patient is receiving CAPD managed by Dr. Wilkinson. The removed significant fluid last night. Chest x-ray was ordered this morning. The patient has been seen by pulmonary medicine for multifactorial dyspnea but doubt pneumonia but we'll plan to continue antibiotics. Cardiology is following for heart failure and fluid overload. They have decreased amiodarone to 200 mg daily and also recommend starting eliquis 5 mg twice daily. Acute coronary syndrome ruled out. Echocardiogram reveals EF 25-30% with LA severely dilated, mild mitral regurgitation, mild tricuspid regurgitation, borderline pulmonary hypertension. 12/20: Patient states he is feeling better today with decreased shortness of breath. He remains in influenza isolation. Kingston removed moved from his previous hip surgery done yesterday. He is continued on CAPD managed by Dr. Wilkinson. He has been afebrile, blood pressure 93/55, heart rate in the 70s and 80s, pulse ox 99% on 3 L nasal cannula. The chest x-ray from yesterday reveals increasing interstitial infiltrates and edema compared to last exam. This could be worsening heart failure. 12/21: Patient had low blood pressure this morning and dialysis fluid has been adjusted by nephrology. Atenolol was held this morning. Patient has been eating very little and agrees that he is depressed. Remeron added at bedtime. CODE STATUS clarified for DO NOT RESUSCITATE. PT and OT are following the patient and he is total assist with early fatigue. He remains afebrile, heart rate running in the 80s, pulse ox 97% on 2 L. White count 13.8, hemoglobin 10.8. Sodium 132, potassium 4.4, chloride 90, CO2 27, BUN 77 creatinine 8.29. Blood sugars run between 107 and 165. Albumin is 2.6. Anticipate discharge back to [facility] on Monday. Review of Systems CONSTITUTIONAL: No fever no chills. EYES: No icterus sclerae, no conjunctivitis. EARS, NOSE, MOUTH, THROAT, and FACE: No sore throat, lymphadenopathy, carotid bruits or deformity. RESPIRATORY: Positive dyspnea and shortness of breath. CARDIOVASCULAR: Positive PND orthopnea palpitation. GASTROINTESTINAL: Abdominal distention and ascites from his CAPD. GENITOURINARY: Negative for Hematuria or UTI, no kidney stones. INTEGUMENT/BREAST: Possible right hip pain. HEMATOLOGIC/LYMPHATIC: Negative for bleed or purpura. MUSCULOSKELTAL: Negative for Myalgia or arthralgia. NEURLOGICAL: No LOC, Sz or syncope, blurred vision dizziness or abnormality. BEHAVIORAL/PSYCH: Reports depression reports lack of appetite. ENDOCRINE: Negative. Objective - Vital Signs Vital signs: Vital Signs Temp 97.8 F 12/21/18 07:45 Pulse 80 12/21/18 08:28 Resp 20 12/21/18 07:45 BP 106/60 12/21/18 07:45 Pulse Ox 97 12/21/18 07:45 Intake & Output 12/20/18 12/21/18 12/21/18 18:59 06:59 18:59 Intake Total 198 45 Balance 198 45 Weight 55.4 kg Intake: IV 30 45 .9 15 Invasive Line 1 30 30 Oral 168 Other: Voiding Method CAPD CAPD # Bowel Movements 1 - Exam General Appearance: Alert, thin, cooperative, he seems older than his age. No respiratory distress noted. Neck HEENT: Supple, no lymphadenopathy, no thyroid enlargement, no carotid bruits. Lungs: Decreased breath some bilateral fine rhonchi positive mild crackles in the bases specially the right side with mild inspiratory expiratory wheezes as well. Chest Wall: Chest wall normal expansion with deep inspiration no tenderness and no deformity was found on exam, no costochondral pain or discomfort. Heart: Irregular rhythm and rate S1,S2 +S3, +5 cm JVD. Back: Symmetric, no curvature, ROM normal, no CVA tenderness. Abdomen: Soft positive bowel sound patient had quite Ascites from his CAPD fluid with mild discomfort in the right upper quadrant area. Extremities: Right side incision looks fine with slight edema around it trace edema on the lower side of his neck as well. Pulses: 2+ and symmetric. Skin: Skin color, texture, tugor normal, no rashes or lesions. Neurologic: Alert oriented x3 cranial nerves II through XII intact, no motor deficit, gait not assessed. - Labs CBC & Chem 7: 12/21/18 06:48 12/21/18 06:48 Labs: Abnormal Lab Results - Last 24 Hours (Table) 12/20/18 12/20/18 12/20/18 Range/Units 11:38 16:44 20:28 WBC (3.8-10.6) k/uL RBC (4.30-5.90) m/uL Hgb (13.0-17.5) gm/dL Hct (39.0-53.0) % MCHC (31.0-37.0) g/dL RDW (11.5-15.5) % Sodium (137-145) mmol/L Chloride (98-107) mmol/L BUN (9-20) mg/dL Creatinine (0.66-1.25) mg/dL Glucose (74-99) mg/dL POC Glucose (mg/dL) 138 H 145 H 165 H (75-99) mg/dL Calcium (8.4-10.2) mg/dL Total Protein (6.3-8.2) g/dL Albumin (3.5-5.0) g/dL 12/21/18 12/21/18 Range/Units 06:48 06:48 WBC 13.8 H (3.8-10.6) k/uL RBC 3.83 L (4.30-5.90) m/uL Hgb 10.8 L (13.0-17.5) gm/dL Hct 35.2 L (39.0-53.0) % MCHC 30.7 L (31.0-37.0) g/dL RDW 18.8 H (11.5-15.5) % Sodium 132 L (137-145) mmol/L Chloride 90 L (98-107) mmol/L BUN 77 H (9-20) mg/dL Creatinine 8.29 H* (0.66-1.25) mg/dL Glucose 122 H (74-99) mg/dL POC Glucose (mg/dL) (75-99) mg/dL Calcium 7.9 L (8.4-10.2) mg/dL Total Protein 5.4 L (6.3-8.2) g/dL Albumin 2.6 L (3.5-5.0) g/dL Microbiology - Last 24 Hours (Table) 12/18/18 02:12 Blood Culture - Preliminary Blood No Growth after 72 hours 12/18/18 20:38 Gram Stain - Preliminary Peritoneal Fluid Body Fluid Culture - Preliminary 12/18/18 02:12 Group A Strep Throat Culture - Final Throat Assessment and Plan Plan: 1 acute hypoxic respiratory failure: Combination of possible pneumonia not ruled out, influenza A, and acute on chronic heart failure. Patient to continue CAPD, DuoNeb treatments, Levaquin, Zosyn. acute coronary syndrome ruled out by cardiology. 2 fluid overload: acute on chronic systolic heart failure with severe impaired left ventricular function patient has been on medical management with his chronic kidney disease this is a contributing factor this point. Continue CAPD we'll consult nephrology and if patient continued to decline might require hemodialysis in the meanwhile continue medical management. 3 COPD: Consult with pulmonary medicine appreciated. Continue nebulizer treatments and oxygen. 4 influenza A: Tamiflu completed. 5 interstitial pneumonitis: Patient was started on Zosyn and Levaquin awaiting for the final culture. 6 CHF exacerbation: Mostly systolic dysfunction with acute on a chronic heart failure continue diuretics continue current management. 7 elevated troponin: Cardiology consult appreciated. Acute coronary syndrome ruled out. 8 recent hip fracture: Post ORIF still in rehab at [facility]. [place] have been removed. 9 end-stage renal disease: On CAPD has been seen nephrology for long time we'll consult nephrology at this point. 10 A. fib with RVR, paroxysmal atrial fibrillation: Amiodarone adjusted by cardiology to 200 mg daily. Patient may need eliquis 5 mg twice daily. 11 type 2 diabetes: Continue NovoLog per sliding scales. 12 hyperlipidemia: On Lopid 6 in the milligrams daily. 13 chronic anemia: On multivitamins and iron also still on Aranesp on weekly basis. 14 severe GERD/GI prophylaxis: Patient remain on Protonix 40 mg daily. 15 chronic pain syndrome: On pain management patient is on a on tramadol 50 mg 4 times a day as needed. 16. Recurrent depression with loss of appetite. Remeron added at bedtime, continue Zoloft. CODE STATUNO CODE PER PATIENT WISHES. Discharge plan: Return to [facility] Impression and plan of care have been directed as dictated by the signing physician. Margot Dorado nurse practitioner acting as scribe for signing physician.
[2018-12-21] MEDS: MULTIVITAMINS, THERA 1 EACH TAB PO SCH (13:56)
--- NOTE | 2018-12-21 15:54 | P.PN ---
Subjective Progress Note Date: 12/21/18 Principal diagnosis: Acute hypoxic rest or a failure secondary to an acute influenza pulmonary infection/tracheobronchitis A 73-year-old male patient with multiple medical problems and comorbidities including ischemic cardiomyopathy, end-stage renal disease currently on peritoneal dialysis in addition to hypertension and hyperlipidemia, Dr. disease with previous endarterectomy, and mitral insufficiency. The patient came in with increased shortness of breath cough chest congestion wheezing and hypoxemia. Apparently his brother was also sick. The patient was diagnosed having an influenza A tracheobronchitis. He was started on Tamiflu. He was given 1 dose. He was also placed on oxygen therapy and currently is on 3 L of oxygen nasal cannula. He hasn't defervesced and he doesn't have any temperature for the time being. He is undergoing peritoneal dialysis 3 exchanges a day and the dialysate is being altered and modified by nephrology. The patient is producing adequate amount of output during this exchanges. No chest pain. As mentioned he has ischemic cardiomyopathy with an echocardiogram showing impaired LV function of around 20%. No significant signs of fluid overload. No leg edema. The chest x-ray showed cardiomegaly with some mild four-vessel congestion. Still lethargic and weak although improved compared to yesterday. No other significant events overnight. On today's evaluation of 12/20/2018, the patient remains quite lethargic. He is awake and alert and is following commands and answer questions appropriately. He looks very weak and tired and fatigued. No signs of any acute respiratory distress. The patient is still being treated conservatively for an underlying influenza A tracheobronchitis. No significant cough or sputum production. He remains on DuoNeb nebulized treatments around the clock.. . Fluids also was sent from the abdominal cavity and peritoneal cavity and there is also still negative for now. Blood cultures still negative for now. Patient is continuing his peritoneal dialysis under the supervision of nephrology. He is afebrile. He is hemodynamically stable. Pulse oxing 99% oxygen by nasal cannula. The patient did not have a follow-up chest x-ray from today. He remains in droplet isolation. No nausea. No vomiting. No emesis. No other significant events otherwise for now On 12/21/2016 patient seen in follow-up on [facility]. he is somnolent, but easily arousable to stimuli, appears to be fatigued, denies any acute complaints, denies any shortness of breath, denies any chest pain, sounds are positive for a few scattered rhonchi, no wheezing. Pulse ox on 2 L per nasal cannula was 96%, patient is afebrile, did receive 1 dose of oral Tamiflu for influenza A infection, continues on IV Zosyn and Levaquin. Group A strep throat culture was negative, blood cultures and peritoneal fluid cultures are negative thus far. She is slightly hypotensive, with a blood pressure 85/49 with a mean of 61. Nephrology is following, patient is getting peritoneal dialysis exchanges. Objective - Vital Signs Vital signs: Vital Signs Temp 97.8 F 12/21/18 12:00 Pulse 82 12/21/18 12:06 Resp 17 12/21/18 12:00 BP 85/49 12/21/18 12:00 Pulse Ox 96 12/21/18 12:00 Intake & Output 12/20/18 12/21/18 12/21/18 18:59 06:59 18:59 Intake Total 198 45 370 Balance 198 45 370 Weight 55.4 kg 55.4 kg Intake: IV 30 45 10 .9 15 Invasive Line 1 30 30 10 Oral 168 360 Other: Voiding Method CAPD CAPD CAPD # Voids 0 # Bowel Movements 1 0 - Exam GENERAL EXAM: Alert, pleasant, 73-year-old white male fatigued, resting comfortably in bed, comfortable in no apparent distress. HEAD: Normocephalic/atraumatic. EYES: Normal reaction of pupils, equal size. Conjunctiva pink, sclera white. NOSE: Clear with pink turbinates. THROAT: No erythema or exudates. NECK: No masses, no JVD, no thyroid enlargement, no adenopathy. CHEST: No chest wall deformity. Symmetrical expansion. LUNGS: Equal air entry with a few scattered rhonchi, no wheezing evidence of respiratory distress, no use of accessory muscles of breathing, patient is maintaining good oxygenation on 2 L per nasal cannula. CVS: Regular rate and rhythm, normal S1 and S2, no gallops, no murmurs, no rubs ABDOMEN: Soft, nontender. No hepatosplenomegaly, normal bowel sounds, no guarding or rigidity. EXTREMITIES: No clubbing, no edema, no cyanosis, 2+ pulses and upper and lower extremities. MUSCULOSKELETAL: Muscle strength and tone normal. SPINE: No scoliosis or deformity SKIN: No rashes CENTRAL NERVOUS SYSTEM: Alert and oriented -3. No focal deficits, tone is normal in all 4 extremities. PSYCHIATRIC: Alert and oriented -3. Appropriate affect. Intact judgment and insight. - Labs CBC & Chem 7: 12/21/18 06:48 12/21/18 06:48 Labs: Abnormal Lab Results - Last 24 Hours (Table) 12/20/18 12/20/18 12/21/18 Range/Units 16:44 20:28 05:53 WBC (3.8-10.6) k/uL RBC (4.30-5.90) m/uL Hgb (13.0-17.5) gm/dL Hct (39.0-53.0) % MCHC (31.0-37.0) g/dL RDW (11.5-15.5) % Sodium (137-145) mmol/L Chloride (98-107) mmol/L BUN (9-20) mg/dL Creatinine (0.66-1.25) mg/dL Glucose (74-99) mg/dL POC Glucose (mg/dL) 145 H 165 H 107 H (75-99) mg/dL Calcium (8.4-10.2) mg/dL Total Protein (6.3-8.2) g/dL Albumin (3.5-5.0) g/dL 12/21/18 12/21/18 12/21/18 Range/Units 06:48 06:48 11:32 WBC 13.8 H (3.8-10.6) k/uL RBC 3.83 L (4.30-5.90) m/uL Hgb 10.8 L (13.0-17.5) gm/dL Hct 35.2 L (39.0-53.0) % MCHC 30.7 L (31.0-37.0) g/dL RDW 18.8 H (11.5-15.5) % Sodium 132 L (137-145) mmol/L Chloride 90 L (98-107) mmol/L BUN 77 H (9-20) mg/dL Creatinine 8.29 H* (0.66-1.25) mg/dL Glucose 122 H (74-99) mg/dL POC Glucose (mg/dL) 129 H (75-99) mg/dL Calcium 7.9 L (8.4-10.2) mg/dL Total Protein 5.4 L (6.3-8.2) g/dL Albumin 2.6 L (3.5-5.0) g/dL Microbiology - Last 24 Hours (Table) 12/18/18 02:12 Blood Culture - Preliminary Blood No Growth after 72 hours 12/18/18 20:38 Gram Stain - Preliminary Peritoneal Fluid Body Fluid Culture - Preliminary Assessment and Plan Plan: Assessment: 1 acute hypoxic respiratory failure secondary to an acute influenza pulmonary infection/check a bronchitis. Pneumonia is doubtful 2 acute CHF exacerbation. The patient has systolic dysfunction with an ejection fraction of around 25% based on the most recent echocardiogram 3 end-stage renal disease on peritoneal dialysis 4 troponin leak 5 recent ORIF for right hip fracture 6 chronic atrial fibrillation maintained on amiodarone and oral Eliquis 7 diabetes mellitus type 2 8 hyperlipidemia 9 chronic anemia 10 debilitation and impaired performance and functional status secondary to above-mentioned comorbidities Plan: Continue with current medical treatment, continue current antibiotic coverage, nebulized bronchodilators as needed, cultures remain negative thus far, patient received Tamiflu. No worsening dyspnea, no chest congestion, no use of accessory muscles of breathing. From pulmonary perspective patient's pulmonary status is stable, and we'll follow him on as-needed basis. I performed a history & physical examination of the patient and discussed their management with my nurse practitioner, Giovanna Banuelos. I reviewed the nurse practitioner's note and agree with the documented findings and plan of care. Lung sounds are positive for some scattered rhonchi. The findings and the impression was discussed with the patient. I attest to the documentation by the nurse practitioner. Time with Patient: Less than 30
[2018-12-21 16:34] LABS: Glucose,Whole Blood 132 mg/dL (75-99)
[2018-12-21] MEDS ORDERED: DIALYSIS (PERIT 2.5%) 2,500 ML 62.5 G/2,500 ML BAG INTRAPERIT SCH (18:00)
--- NOTE | 2018-12-21 18:01 | XR ---
EXAMINATION TYPE: XR chest 1V DATE OF EXAM: 12/21/2018 COMPARISON: 12/19/2018 HISTORY: Short of breath TECHNIQUE: Single frontal view of the chest is obtained. FINDINGS: There is coarsening of interstitial markings. There is poor inspiration. There are chest l addie. Heart size is fairly normal. Thoracic aorta is atheromatous. IMPRESSION: Interstitial pulmonary infiltrates. There is improved aeration of the lungs overall comp ared to recent exam. No gross heart failure.
--- NOTE | 2018-12-21 18:43 | PN ---
PROGRESS NOTE Patient is seen for followup for end-stage renal disease. He is maintained on peritoneal dialysis. Patient was admitted with fever, weakness, shortness of breath. He did test positive for influenza A. He was also volume-overloaded. Volume status seems to have improved. Patient has had good ultrafiltration with peritoneal dialysis. His blood pressure has been running low, and I have changed the PD fluid exchanges to 1.5% solutions now. Patient has been getting about 300 to 400 mL of ultrafiltration with the 2.5% solutions. He is also maintained on midodrine for chronic hypotension. Respiratory status has improved. However, patient is quite weak and has not been eating much. On examination this morning, blood pressure was 106/60, heart rate 80 per minute. He is afebrile. EXAMINATION OF THE HEART: S1 and S2. EXAMINATION OF LUNGS: Decreased breath sounds at the bases. There is bilateral wheezing heard as well. ABDOMEN: Soft, non-tender. Examination of lower extremities shows no evidence of edema. Labs show sodium 132, potassium 4.4, BUN 77, serum creatinine 8.29, hemoglobin 10.8 g/dL. ASSESSMENT: 1. End-stage renal disease, on peritoneal dialysis. PD fluid changed to 1.5% solutions. Blood pressure is staying low. Midodrine has been increased and I will repeat another chest x-ray. Patient's respiratory status seems to have improved, although the x-ray on 12/19/2018 showed worsening CHF. 2. Volume overload, currently improved. 3. Influenza A, maintained on Tamiflu. 4. Chronic kidney disease mineral bone disorder, maintained on Renvela as phosphate binder. PLAN: Check chest x-ray. Change fluids to 1.5% solutions and increase midodrine. MMODL / IJN: [id number] /
[2018-12-21] MEDS: GENTAMICIN 0.1% CREAM 15 GM TUBE TOPICAL SCH (19:00)
[2018-12-21] MEDS: VELPHORO 500 MG PO SCH (19:00)
[2018-12-21] MEDS: DARBEPOETIN ALFA 40 MCG/0.4 ML SYRINGE SQ SCH (20:05)
[2018-12-21 21:24] LABS: Glucose,Whole Blood 93 mg/dL (75-99)
[2018-12-21] MEDS: ONDANSETRON 4 MG/2 ML VIAL IVP PRN (21:56)
[2018-12-21] MEDS: MIRTAZAPINE 15 MG TAB PO SCH (21:56)
[2018-12-21] MEDS: DIALYSIS (PERIT 1.5%) 2,500 ML 37.5 G/2,500 ML BAG INTRAPERIT SCH (22:31)
[2018-12-22] MEDS: ACETAMINOPHEN TAB 325 MG TAB PO PRN ×2 (03:42→09:50)
[2018-12-22] MEDS ORDERED: ACETAMINOPHEN IV (For NPO) 1,000 MG in EMPTY BAG 1 BAG IVPB STA (03:45)
[2018-12-22 03:55] LABS: Glucose,Whole Blood 78 mg/dL (75-99)
[2018-12-22 04:08] LABS: Anisocytosis Slight; Basophils % (A) 0 %; Eosinophils % (A) 0 %; HCT 37.2 % (39.0-53.0); HGB 11.3 gm/dL (13.0-17.5); Hypochromasia Marked; Lymphocytes # (A) 0.7 k/uL (1.0-4.8); Lymphocytes % (A) 4 %; MCH 28.7 pg (25.0-35.0); MCHC 30.3 g/dL (31.0-37.0); MCV 94.6 fL (80.0-100.0); Macrocytosis Slight; Mean Platelet Volume 7.1; Monocytes # (A) 0.5 k/uL (0-1.0); Monocytes % (A) 3 %; Neutrophils # (A) 18.4 k/uL (1.3-7.7); Neutrophils % (A) 93 %; Platelet Count 240 k/uL (150-450); Poikilocytosis Slight; RBC 3.94 m/uL (4.30-5.90); RDW 18.7 % (11.5-15.5); WBC 19.8 k/uL (3.8-10.6)
[2018-12-22] MEDS: PIPERACILLIN-TAZOBACTAM 3.375 GM in SODIUM CHLORIDE 0.9% 100 ML IVPB SCH ×2 (05:15→19:27)
[2018-12-22 06:11] LABS: Glucose,Whole Blood 82 mg/dL (75-99)
[2018-12-22] MEDS ORDERED: SODIUM CHLORIDE 0.9% 500 ML 500 ML IV ONE (06:56)
--- NOTE | 2018-12-22 07:52 | XR ---
EXAMINATION TYPE: XR chest 1V portable DATE OF EXAM: 12/22/2018 COMPARISON: 12/21/2018 HISTORY: Shortness of breath TECHNIQUE: Single frontal view of the chest is obtained. FINDINGS: Diffuse interstitial pattern with small bilateral effusions and basilar consolidation. No pneumothorax. Atherosclerotic change aorta. Arthropathy of the shoulders. IMPRESSION: 1. Interstitial pattern persists correlate for CHF versus pneumonia.
[2018-12-22] MEDS: DIALYSIS (PERIT 1.5%) 2,500 ML 37.5 G/2,500 ML BAG INTRAPERIT SCH ×3 (07:56→16:21)
[2018-12-22] MEDS: INSULIN ASPART (NovoLOG) 100 UNIT/ML VIAL SQ SCH ×4 (08:16→21:27)
[2018-12-22] MEDS: ATENOLOL 12.5 MG TAB PO SCH (08:16)
[2018-12-22 08:21] LABS: Calcium 8.1 mg/dL (8.4-10.2); Magnesium 3.5 mg/dL (1.6-2.3); Phosphorus 4.3 mg/dL (2.5-4.5); Potassium 4.6 mmol/L (3.5-5.1)
[2018-12-22] MEDS: ONDANSETRON 4 MG/2 ML VIAL IVP PRN (08:44)
[2018-12-22] MEDS: SODIUM CHLORIDE 0.9% 1,000 ML IV SCH (08:51)
[2018-12-22] MEDS: AMIODARONE 200 MG TAB PO SCH (09:38)
[2018-12-22] MEDS: MIDODRINE 5 MG TAB PO SCH ×3 (09:38→21:42)
[2018-12-22] MEDS: PANTOPRAZOLE 40 MG TABLET PO SCH (09:39)
[2018-12-22] MEDS: ENOXAPARIN 30 MG/0.3 ML SYRINGE SQ SCH (09:39)
[2018-12-22] MEDS: ATORVASTATIN 40 MG TAB PO SCH (09:39)
[2018-12-22] MEDS: VELPHORO 500 MG PO SCH (09:55)
--- NOTE | 2018-12-22 10:42 | P.PN ---
Subjective Progress Note Date: 12/22/18 Principal diagnosis: 73-year-old male who is known from [facility] was hospitalized last week with hip fracture post-ORIF who had severe lethargy and change in mental status after surgery was transferred to [facility] where was seen by neurology and evaluated and found to have severe encephalopathy mostly medication related medication were adjusted patient started to feel much better still have no weight bearing on the hip area was transferred to [facility] for rehab. Patient is doing CAPD 4 end-stage renal disease and has been doing well with it continue to decline over ROM the last 12 hours. 2 calling EMS with found to have significant hypoxia with the worsening congestion and cough productive dark phlegm along with significant weight gain and fluid retention. Ended up coming via EMS to demurs department at [facility] where was seen and evaluated his influenza A was positive ration found to be in quite bed fluid overload with pro-BNP was 85,000 patient chest x-ray showed sign of pneumonia as well he was started on Zosyn and Levaquin along with Tamiflu patient will be seen pulmonary and admitted to the hospital with above problem. He is currently on nasal cannula oxygen stable with normal vital signs she is in normal sinus rhythm on the he has history of atrial fibrillation His appetite is poor. He is currently on 1.5% peritoneal fluid exchanges but the last 2 exchanges are held because of low blood pressure in the 80s. Objective - Vital Signs Vital signs: Vital Signs Temp 100.0 F H 12/22/18 04:00 Pulse 96 12/22/18 04:00 Resp 20 12/22/18 04:00 BP 87/49 12/22/18 05:55 Pulse Ox 96 12/22/18 08:26 Intake & Output 12/21/18 12/22/18 12/22/18 18:59 06:59 18:59 Intake Total 606 Output Total 500 Balance 606 -500 Weight 55.4 kg Intake: IV 10 Invasive Line 1 10 Oral 596 Output: Emesis 500 Other: Voiding Method CAPD Urinal Diaper Incontinent # Voids 0 0 # Bowel Movements 0 1 On examination is somewhat lethargic arousable but does not answer much to questions. He does follow commands HEENT exam no JVP neck is supple no facial asymmetry Lungs are clear with an occasional coarse crackle bilaterally. Good air entry bilaterally Heart sounds are unremarkable normal sinus rhythm on the monitor Abdomen soft nontender exit site of the PD catheter is clean Extremity exam was no edema Neurologically arousable follows command but does not speak. No focal motor deficit. Seems to be having generalized weakness - Labs CBC & Chem 7: 12/22/18 03:55 12/22/18 03:55 Labs: Abnormal Lab Results - Last 24 Hours (Table) 12/21/18 12/21/18 12/21/18 Range/Units 05:53 11:32 16:31 WBC (3.8-10.6) k/uL RBC (4.30-5.90) m/uL Hgb (13.0-17.5) gm/dL Hct (39.0-53.0) % MCHC (31.0-37.0) g/dL RDW (11.5-15.5) % Neutrophils # (1.3-7.7) k/uL Lymphocytes # (1.0-4.8) k/uL Sodium (137-145) mmol/L Chloride (98-107) mmol/L BUN (9-20) mg/dL Creatinine (0.66-1.25) mg/dL POC Glucose (mg/dL) 107 H 129 H 132 H (75-99) mg/dL Calcium (8.4-10.2) mg/dL Magnesium (1.6-2.3) mg/dL 12/22/18 12/22/18 Range/Units 03:55 03:55 WBC 19.8 H (3.8-10.6) k/uL RBC 3.94 L (4.30-5.90) m/uL Hgb 11.3 L (13.0-17.5) gm/dL Hct 37.2 L (39.0-53.0) % MCHC 30.3 L (31.0-37.0) g/dL RDW 18.7 H (11.5-15.5) % Neutrophils # 18.4 H (1.3-7.7) k/uL Lymphocytes # 0.7 L (1.0-4.8) k/uL Sodium 132 L (137-145) mmol/L Chloride 90 L (98-107) mmol/L BUN 77 H (9-20) mg/dL Creatinine 8.21 H* (0.66-1.25) mg/dL POC Glucose (mg/dL) (75-99) mg/dL Calcium 8.1 L (8.4-10.2) mg/dL Magnesium 3.5 H (1.6-2.3) mg/dL Microbiology - Last 24 Hours (Table) 12/18/18 02:12 Blood Culture - Preliminary Blood No Growth after 96 hours Assessment and Plan Assessment: Impression 1. ESRD on peritoneal dialysis. On 1.5% because of low blood pressure 2. admitted with pneumonia and influenza A, stable 3. Depression chronic 4. History of atrial fibrillation currently in normal sinus rhythm 5. Low blood pressure, on TX drawn as well as given IV 500 mL of saline bolus this morning Recommendation 1. Agree with boluses as needed for low blood pressure. 2. Continue 1.5% exchanges and if necessary give IV fluid. There is large amount of ultrafiltration. 3. Anemia with hemoglobin 11.3 at target. 4. MBD calcium and normal phosphorus is normal. 5. An sure adequate nutritional support with supplemental
--- NOTE | 2018-12-22 10:54 | P.PN ---
Subjective Progress Note Date: 12/22/18 73-year-old male who is known from [facility] was hospitalized last week with hip fracture post-ORIF who had severe lethargy and change in mental status after surgery was transferred to [facility] where was seen by neurology and evaluated and found to have severe encephalopathy mostly medication related medication were adjusted patient started to feel much better still have no weight bearing on the hip area was transferred to [facility] for rehab. Patient is doing CAPD 4 end-stage renal disease and has been doing well with it continue to decline over ROM the last 12 hours. 2 calling EMS with found to have significant hypoxia with the worsening congestion and cough prod uctive dark phlegm along with significant weight gain and fluid retention. Ended up coming via EMS to demurs department at [facility] where was seen and evaluated his influenza A was positive ration found to be in quite bed fluid overload with pro-BNP was 85,000 patient chest x-ray showed sign of pneumonia as well he was started on Zosyn and Levaquin along with Tamiflu patient will be seen pulmonary and admitted to the hospital with above problem. 12/19: Patient is receiving CAPD managed by Dr. Wilkinson. The removed significant fluid last night. Chest x-ray was ordered this morning. The patient has been seen by pulmonary medicine for multifactorial dyspnea but doubt pneumonia but w e'll plan to continue antibiotics. Cardiology is following for heart failure and fluid overload. They have decreased amiodarone to 200 mg daily and also recommend starting eliquis 5 mg twice daily. Acute coronary syndrome ruled out. Echocardiogram reveals EF 25-30% with LA severely dilated, mild mitral regurgitation, mild tricuspid regurgitation, borderline pulmonary hypertension. 12/20: Patient states he is feeling better today with decreased shortness of breath. He remains in influenza isolation. Paul removed moved from his previous hip surgery done yesterday. He is continued on CAPD managed by Dr. Wilkinson. He has been afebrile, blood pressure 93/55, heart rate in the 70s and 80s, pulse ox 99% on 3 L nasal cannula. The chest x-ray from yesterday reveals increasing interstitial infiltrates and edema compared to last exam. This could be worsening heart failure. 12/21: Patient had low blood pressure this morning and dialysis fluid has been adjusted by nephrology. Atenolol was held this morning. Patient has been eating very little and agrees that he is depressed. Remeron added at bedtime. CODE STATUS clarified for DO NOT RESUSCITATE. PT and OT are following the patient and he is total assist with early fatigue. He remains afebrile, heart rate running in the 80s, pulse ox 97% on 2 L. White count 13.8, hemoglobin 10.8. Sodium 132, potassium 4.4, chloride 90, CO2 27, BUN 77 creatinine 8.29. Blood sugars run between 107 and 165. Albumin is 2.6. Anticipate discharge back to [facility] on Monday. 12/22: Patient continues to have low blood pressure this morning. Patient has not had CAPD at this time due to the low blood pressure. Dr. Wilkinson has CAPD on hold until systolic is greater than 100. Patient's appetite continues to be poor. Affect continues to be depressed. Remeron was added. Patient remained afebrile, heart rate running in the 80s, pulse ox around 96-97% on 2 L. WAC 19.8, hemoglobin 11.3, sodium 132 potassium 4.6, chloride 90, BUN 77 creatinine 8.21. Lactic acid 1.8 Review of Systems CONSTITUTIONAL: No fever no chills. EYES: No icterus sclerae, no conjunctivitis. EARS, NOSE, MOUTH, THROAT, and FACE: No sore throat, lymphadenopathy, carotid bruits or deformity. RESPIRATORY: Positive dyspnea and shortness of breath. CARDIOVASCULAR: Positive PND orthopnea palpitation. GASTROINTESTINAL: Abdominal distention and ascites from his CAPD. GENITOURINARY: Negative for Hematuria or UTI, no kidney stones. INTEGUMENT/BREAST: Possible right hip pain. HEMATOLOGIC/LYMPHATIC: Negative for bleed or purpura. MUSCULOSKELTAL: Negative for Myalgia or arthralgia. NEURLOGICAL: No LOC, Sz or syncope, blurred vision dizziness or abnormality. BEHAVIORAL/PSYCH: Reports depression reports lack of appetite. ENDOCRINE: Negative. Objective - Vital Signs Vital signs: Vital Signs Temp 100.0 F H 12/22/18 04:00 Pulse 96 12/22/18 04:00 Resp 20 12/22/18 04:00 BP 87/49 12/22/18 05:55 Pulse Ox 96 12/22/18 08:26 Intake & Output 12/21/18 12/22/18 12/22/18 18:59 06:59 18:59 Intake Total 606 Output Total 500 Balance 606 -500 Weight 55.4 kg Intake: IV 10 Invasive Line 1 10 Oral 596 Output: Emesis 500 Other: Voiding Method CAPD Urinal Urinal Diaper Diaper Incontinent Incontinent # Voids 0 0 # Bowel Movements 0 1 - Exam General Appearance: Alert, thin, cooperative, he seems older than his age. No respiratory distress noted. Neck HEENT: Supple, no lymphadenopathy, no thyroid enlargement, no carotid bruits. Lungs: Decreased breath some bilateral fine rhonchi positive mild crackles in the bases specially the right side with mild inspiratory expiratory wheezes as well. Chest Wall: Chest wall normal expansion with deep inspiration no tenderness and no deformity was found on exam, no costochondral pain or discomfort. Heart: Irregular rhythm and rate S1,S2 +S3, +5 cm JVD. Back: Symmetric, no curvature, ROM normal, no CVA tenderness. Abdomen: Soft positive bowel sound patient had quite Ascites from his CAPD fluid with mild discomfort Extremities: Right side incision looks fine with slight edema around it trace edema on the lower side of his neck as well. Pulses: 2+ and symmetric. Skin: Skin color, texture, tugor normal, no rashes or lesions. Neurologic: Alert oriented x3 cranial nerves II through XII intact, no motor deficit, gait not assessed. - Labs CBC & Chem 7: 12/22/18 03:55 12/22/18 03:55 Labs: Abnormal Lab Results - Last 24 Hours (Table) 12/21/18 12/21/18 12/21/18 Range/Units 05:53 11:32 16:31 WBC (3.8-10.6) k/uL RBC (4.30-5.90) m/uL Hgb (13.0-17.5) gm/dL Hct (39.0-53.0) % MCHC (31.0-37.0) g/dL RDW (11.5-15.5) % Neutrophils # (1.3-7.7) k/uL Lymphocytes # (1.0-4.8) k/uL Sodium (137-145) mmol/L Chloride (98-107) mmol/L BUN (9-20) mg/dL Creatinine (0.66-1.25) mg/dL POC Glucose (mg/dL) 107 H 129 H 132 H (75-99) mg/dL Calcium (8.4-10.2) mg/dL Magnesium (1.6-2.3) mg/dL 12/22/18 12/22/18 Range/Units 03:55 03:55 WBC 19.8 H (3.8-10.6) k/uL RBC 3.94 L (4.30-5.90) m/uL Hgb 11.3 L (13.0-17.5) gm/dL Hct 37.2 L (39.0-53.0) % MCHC 30.3 L (31.0-37.0) g/dL RDW 18.7 H (11.5-15.5) % Neutrophils # 18.4 H (1.3-7.7) k/uL Lymphocytes # 0.7 L (1.0-4.8) k/uL Sodium 132 L (137-145) mmol/L Chloride 90 L (98-107) mmol/L BUN 77 H (9-20) mg/dL Creatinine 8.21 H* (0.66-1.25) mg/dL POC Glucose (mg/dL) (75-99) mg/dL Calcium 8.1 L (8.4-10.2) mg/dL Magnesium 3.5 H (1.6-2.3) mg/dL Microbiology - Last 24 Hours (Table) 12/18/18 02:12 Blood Culture - Preliminary Blood No Growth after 96 hours Assessment and Plan Plan: 1 acute hypoxic respiratory failure: Combination of possible pneumonia not ruled out, influenza A, and acute on chronic heart failure. Patient to continue CAPD, DuoNeb treatments, Levaquin, Zosyn. acute coronary syndrome ruled out by cardiology. 2 fluid overload: acute on chronic systolic heart failure with severe impaired left ventricular function patient has been on medical management with his chronic kidney disease this is a contributing factor this point. Continue CAPD we'll consult nephrology and if patient continued to decline might require hemodialysis in the meanwhile continue medical management. 3 COPD: Consult with pulmonary medicine appreciated. Continue nebulizer treatments and oxygen. 4 influenza A: Tamiflu completed. 5 interstitial pneumonitis: Patient was started on Zosyn and Levaquin awaiting for the final culture. 6 CHF exacerbation: Mostly systolic dysfunction with acute on a chronic heart failure continue diuretics continue current management. 7 elevated troponin: Cardiology consult appreciated. Acute coronary syndrome ruled out. 8 recent hip fracture: Post ORIF still in rehab at [facility]. Paul have been removed. 9 end-stage renal disease: On CAPD has been seen nephrology for long time we'll consult nephrology at this point. CAPD on hold for Dr. Wilkinson until systolic blood pressure greater than 100 10 A. fib with RVR, paroxysmal atrial fibrillation: Amiodarone adjusted by cardiology to 200 mg daily. Patient may need eliquis 5 mg twice daily. 11 type 2 diabetes: Continue NovoLog per sliding scales. 12 hyperlipidemia: On Lopid 6 in the milligrams daily. 13 chronic anemia: On multivitamins and iron also still on Aranesp on weekly basis. 14 severe GERD/GI prophylaxis: Patient remain on Protonix 40 mg daily. 15 chronic pain syndrome: On pain management patient is on a on tramadol 50 mg 4 times a day as needed. 16. Recurrent depression with loss of appetite. Remeron added at bedtime, continue Zoloft. CODE STATUs: NO CODE PER PATIENT WISHES. Discharge plan: Return to [facility] Impression and plan of care have been directed as dictated by the signing janes campbell. Eli Murdock nurse practitioner acting as scribe for signing physician.
[2018-12-22] MEDS: SEVELAMER 800 MG TAB PO SCH ×2 (11:11→21:41)
[2018-12-22] MEDS: IPRATROPIUM-ALBUTEROL 3 ML NEB INHALATION PRN (11:41)
[2018-12-22] MEDS: CALCIUM CARB-MAG CARB-FOLIC 1 EACH TAB PO SCH ×2 (12:16→13:53)
[2018-12-22 12:37] LABS: Glucose,Whole Blood 89 mg/dL (75-99)
[2018-12-22] MEDS: SERTRALINE 25 MG TAB PO SCH (13:52)
[2018-12-22] MEDS: FENOFIBRATE 160 MG TAB PO SCH (13:52)
[2018-12-22] MEDS: GENTAMICIN 0.1% CREAM 15 GM TUBE TOPICAL SCH (14:00)
--- NOTE | 2018-12-22 14:22 | P.PN ---
Subjective Progress Note Date: 12/22/18 A 73-year-old male patient with multiple medical problems and comorbidities including ischemic cardiomyopathy, end-stage renal disease currently on peritoneal dialysis in addition to hypertension and hyperlipidemia, Dr. disease with previous endarterectomy, and mitral insufficiency. The patient came in with increased shortness of breath cough chest congestion wheezing and hypoxemia. Apparently his brother was also sick. The patient was diagnosed having an influenza A tracheobronchitis. He was started on Tamiflu. He was given 1 dose. He was also placed on oxygen therapy and currently is on 3 L of oxygen nasal cannula. He hasn't defervesced and he doesn't have any temperature for the time being. He is undergoing peritoneal dialysis 3 exchanges a day and the dialysate is being altered and modified by nephrology. The patient is producing adequate amount of output during this exchanges. No chest pain. As mentioned he has ischemic cardiomyopathy with an echocardiogram showing impaired LV function of around 20%. No significant signs of fluid overload. No leg edema. The chest x-ray showed cardiomegaly with some mild four-vessel congestion. Still lethargic and weak although improved compared to yesterday. No other significant events overnight. On today's evaluation of 12/20/2018, the patient remains quite lethargic. He is awake and alert and is following commands and answer questions appropriately. He looks very weak and tired and fatigued. No signs of any acute respiratory distress. The patient is still being treated conservatively for an underlying influenza A tracheobronchitis. No significant cough or sputum production. He remains on DuoNeb nebulized treatments around the clock.. . Fluids also was sent from the abdominal cavity and peritoneal cavity and there is also still negative for now. Blood cultures still negative for now. Patient is continuing his peritoneal dialysis under the supervision of nephrology. He is afebrile. He is hemodynamically stable. Pulse oxing 99% oxygen by nasal cannula. The patient did not have a follow-up chest x-ray from today. He remains in droplet isolation. No nausea. No vomiting. No emesis. No other significant events otherwise for now On 12/21/2018 patient seen in follow-up on [facility]. he is somnolent, but easily arousable to stimuli, appears to be fatigued, denies any acute complaints, denies any shortness of breath, denies any chest pain, sounds are positive for a few scattered rhonchi, no wheezing. Pulse ox on 2 L per nasal cannula was 96%, patient is afebrile, did receive 1 dose of oral Tamiflu for influenza A infection, continues on IV Zosyn and Levaquin. Group A strep throat culture was negative, blood cultures and peritoneal fluid cultures are negative thus far. She is slightly hypotensive, with a blood pressure 85/49 with a mean of 61. Nephrology is following, patient is getting peritoneal dialysis exchanges. On 12/22/2018, and seeing this patient for a follow-up. Note that the patient had few episodes of bright red blood per rectum on the medical floor and the patient became hypotensive. For that reason the patient got transferred to the intensive care unit. I gave him a 500 mL of normal saline bolus. He did not require any pressors. Upon further questioning, the family members tell me that the patient had a colonoscopy that was done and [facility] and apparently the colonoscopy was negative and the patient had some hemorrhoids problems. In any rate, the hemoglobin did not drop. The patient is not bleeding and he had brown bowel moments subsequently. However, and that concerned of his underlying mentation. The patient looks encephalopathic. There is a component of metabolic encephalopathy. He would arouse and he was follow simple commands. If left unstimulated, he would go to sleep. He is not having any focal neurological deficits. No seizure activity. A CAT scan of the head that was done during his last admission showed chronic white matter changes without any acute abnormalities. Apparently, post his hip surgery the patient was also slow to recover and remained sleepy and fatigued and lethargic for an extended period of time. He is still undergoing his peritoneal dialysis. He was treated for an influenza a pulmonary infection. His cough is congested. No significant sputum production. His chest x-ray shows interstitial pattern consistent with CHF. He is eating although in my opinion is not reaching his caloric requirements. Objective - Vital Signs Vital signs: Vital Signs Temp 97.9 F 12/22/18 08:00 Pulse 69 12/22/18 11:54 Resp 20 12/22/18 11:00 BP 95/50 12/22/18 11:00 Pulse Ox 94 L 12/22/18 11:00 Intake & Output 12/21/18 12/22/18 12/22/18 18:59 06:59 18:59 Intake Total 606 520 Output Total 500 Balance 606 -500 520 Weight 55.4 kg Intake: IV 10 Invasive Line 1 10 Intake, IV Titration 520 Amount Sodium Chloride 0.9% 1, 20 000 ml @ 20 mls/hr IV . Q24H [facility], [facility]–1983 Rx#:[id number] Sodium Chloride 0.9% 500 500 ml 500 ml @ 999 mls/hr IV .Q31M ONE Rx#:[id number] Oral 596 Output: Emesis 500 Other: Voiding Method CAPD Urinal Urinal Diaper Diaper Incontinent Incontinent # Voids 0 0 # Bowel Movements 0 1 1 - Exam General Appearance: Alert, cooperative, he seems older than his age. The patient is on oxygen at 3 L per minute nasal cannula Neck HEENT: Supple, no lymphadenopathy, no thyroid enlargement, no carotid bruits. Lungs: Decreased breath some bilateral fine rhonchi positive mild crackles in the bases specially the right side with mild inspiratory expiratory wheezes as well. Chest Wall: Chest wall normal expansion with deep inspiration no tenderness and no deformity was found on exam, no costochondral pain or discomfort. Heart: Irregular rhythm and rate S1,S2 +S3, +2 cm JVD. Back: Symmetric, no curvature, ROM normal, no CVA tenderness. Abdomen: Soft positive bowel sound patient had quite Ascites from his CAPD fluid with mild discomfort in the right upper quadrant area.The patient has a PD catheter and a PD site is clean and dry and intact. No direct tenderness or rebound tensile guarding at this point in time. Extremities: Right side incision looks fine with slight edema around it trace edema on the lower side of his neck as well. Pulses: 1+ and symmetric. Skin: Skin color, texture, tugor normal, no rashes or lesions. Neurologic: Lethargic, sleepy, arousable, follows simple commands and responds to questions appropriately. No focal neurological deficits. - Labs CBC & Chem 7: 12/22/18 03:55 12/22/18 03:55 Labs: Abnormal Lab Results - Last 24 Hours (Table) 12/21/18 12/22/18 12/22/18 Range/Units 16:31 03:55 03:55 WBC 19.8 H (3.8-10.6) k/uL RBC 3.94 L (4.30-5.90) m/uL Hgb 11.3 L (13.0-17.5) gm/dL Hct 37.2 L (39.0-53.0) % MCHC 30.3 L (31.0-37.0) g/dL RDW 18.7 H (11.5-15.5) % Neutrophils # 18.4 H (1.3-7.7) k/uL Lymphocytes # 0.7 L (1.0-4.8) k/uL Sodium 132 L (137-145) mmol/L Chloride 90 L (98-107) mmol/L BUN 77 H (9-20) mg/dL Creatinine 8.21 H* (0.66-1.25) mg/dL POC Glucose (mg/dL) 132 H (75-99) mg/dL Calcium 8.1 L (8.4-10.2) mg/dL Magnesium 3.5 H (1.6-2.3) mg/dL Microbiology - Last 24 Hours (Table) 12/18/18 02:12 Blood Culture - Preliminary Blood No Growth after 96 hours Assessment and Plan Plan: Assessment 1 acute hypoxic respiratory failure secondary to an acute influenza pulmonary infection/bronchitis. Pneumonia is doubtful 2 acute CHF exacerbation. The patient has systolic dysfunction with an ejection fraction of around 25% based on the most recent echocardiogram 3 end-stage renal disease on peritoneal dialysis 4 troponin leak 5 recent ORIF for right hip fracture 6 chronic atrial fibrillation maintained on amiodarone and oral Eliquis 7 diabetes mellitus type 2 8 hyperlipidemia 9 chronic anemia 10 diminished level of consciousness most likely consistent with metabolic encephalopathy. Rule out uremic encephalopathy. 11 brief hypotension recovered with IV fluids 12 lower GI bleed, most likely hemorrhoidal bleed. 13 debilitation and impaired performance and functional status secondary to above-mentioned comorbidities Plan The patient is being monitored in the intensive care unit. We'll continue our supportive care. I had a discussion with nephrology regarding his diminished level of consciousness and lethargy and metabolic encephalopathy. He may to be considered for hemodialysis if the peritoneal dialysis itself is felt to be insufficient and improving his metabolic encephalopathy. I've discussed this issue with nephrology. His white cell count is at 19.8. His hemoglobin is stable. He is on broad-spectrum antibiotic coverage. No signs of fluid overload. Potassium level is well-controlled at 4.6. Check a serum ammonia level. We'll continue to follow. The CAT scan of the head that was done during his last admission showed chronic white matter changes. I do not see the need to repeat a CAT scan this point time unless his condition remains unchanged. We'll continue to follow. Keep the patient ICU. Watch for his blood pressure. Watch for any further bouts of GI bleed.
[2018-12-22 17:15] LABS: Glucose,Whole Blood 97 mg/dL (75-99)
[2018-12-22] MEDS: LIDOCAINE 5% PATCH TOPICAL SCH ×2 (17:23→19:28)
[2018-12-22] MEDS: MULTIVITAMINS, THERA 1 EACH TAB PO SCH (17:23)
[2018-12-22 20:50] LABS: Glucose,Whole Blood 94 mg/dL (75-99)
[2018-12-22] MEDS: MIRTAZAPINE 15 MG TAB PO SCH (21:41)
[2018-12-23] MEDS: DIALYSIS (PERIT 1.5%) 2,500 ML 37.5 G/2,500 ML BAG INTRAPERIT SCH ×6 (00:15→20:53)
[2018-12-23 05:26] LABS: Anisocytosis Slight; Basophils % (A) 0 %; Eosinophils # (A) 0.1 k/uL (0-0.7); Eosinophils % (A) 1 %; HCT 33.6 % (39.0-53.0); HGB 10.7 gm/dL (13.0-17.5); Hypochromasia Moderate; Lymphocytes # (A) 0.6 k/uL (1.0-4.8); Lymphocytes % (A) 5 %; MCH 30.1 pg (25.0-35.0); MCHC 31.8 g/dL (31.0-37.0); MCV 94.6 fL (80.0-100.0); Macrocytosis Slight; Mean Platelet Volume 7.3; Monocytes # (A) 0.3 k/uL (0-1.0); Monocytes % (A) 3 %; Neutrophils # (A) 11.7 k/uL (1.3-7.7); Neutrophils % (A) 91 %; Platelet Count 188 k/uL (150-450); Poikilocytosis Slight; RBC 3.55 m/uL (4.30-5.90); RDW 18.7 % (11.5-15.5); WBC 12.9 k/uL (3.8-10.6)
[2018-12-23 05:44] LABS: Calcium 7.7 mg/dL (8.4-10.2); Magnesium 3.4 mg/dL (1.6-2.3); Phosphorus 5.4 mg/dL (2.5-4.5)
[2018-12-23] MEDS: LEVOFLOXACIN 500MG-D5W PMX 500 MG in DEXTROSE/WATER 1 100ML.BAG IVPB SCH (06:00)
[2018-12-23 06:10] LABS: Potassium 4.5 mmol/L (3.5-5.1)
[2018-12-23 07:04] LABS: Glucose,Whole Blood 110 mg/dL (75-99)
--- NOTE | 2018-12-23 07:30 | XR ---
EXAMINATION TYPE: XR chest 1V DATE OF EXAM: 12/23/2018 COMPARISON: 12/22/2018 INDICATION: CHF TECHNIQUE: Single frontal view of the chest is obtained. FINDINGS: The heart size is borderline in size. The pulmonary vasculature is from. Is diffuse increased lung markings. This may be more focal in the left midlung. Correlate for pulmona ry edema. IMPRESSION: 1. Diffuse scattered infiltrates. Correlate for pulmonary edema. Some atypical pulmonary edema may be within the left midlung. Underlying infection such as pneumonia could be considered. Follow-up exams are recommended.
[2018-12-23] MEDS: INSULIN ASPART (NovoLOG) 100 UNIT/ML VIAL SQ SCH ×4 (08:14→21:07)
[2018-12-23] MEDS: FENOFIBRATE 160 MG TAB PO SCH (08:16)
[2018-12-23] MEDS: ATORVASTATIN 40 MG TAB PO SCH (08:17)
[2018-12-23] MEDS: LIDOCAINE 5% PATCH TOPICAL SCH (08:24)
[2018-12-23] MEDS: ENOXAPARIN 30 MG/0.3 ML SYRINGE SQ SCH (08:24)
[2018-12-23] MEDS: SODIUM CHLORIDE 0.9% 1,000 ML IV SCH (08:25)
[2018-12-23] MEDS: SEVELAMER 800 MG TAB PO SCH ×2 (08:29→21:09)
[2018-12-23] MEDS: GENTAMICIN 0.1% CREAM 15 GM TUBE TOPICAL SCH (08:29)
[2018-12-23] MEDS: PIPERACILLIN-TAZOBACTAM 3.375 GM in SODIUM CHLORIDE 0.9% 100 ML IVPB SCH ×2 (08:36→18:58)
[2018-12-23] MEDS: ATENOLOL 12.5 MG TAB PO SCH (09:24)
[2018-12-23] MEDS: VELPHORO 500 MG PO SCH (09:24)
[2018-12-23] MEDS: CALCIUM CARB-MAG CARB-FOLIC 1 EACH TAB PO SCH ×3 (10:04→19:55)
[2018-12-23] MEDS: AMIODARONE 200 MG TAB PO SCH (10:04)
[2018-12-23] MEDS: MIDODRINE 5 MG TAB PO SCH ×3 (10:04→18:58)
[2018-12-23] MEDS: PANTOPRAZOLE 40 MG TABLET PO SCH (10:05)
--- NOTE | 2018-12-23 10:16 | P.PN ---
Subjective Progress Note Date: 12/23/18 Principal diagnosis: 73-year-old male who is known ESRD and on peritoneal dialysis. He was was hospitalized with hip fracture post-ORIF in October 2018 a month ago and was transferred on 11/26/2018 to [facility]: Because of severe lethargy and change in mental status after surgery. At [facility], was seen by neurology and evaluated and found to have severe encephalopathy mostly medication related medication were adjusted patient started to feel much better still have no weight bearing on the hip area was transferred to [facility] for rehab. Patient is doing CAPD 4 end- stage renal disease and has been doing well with it continue to decline over ROM the last 12 hours. calling EMS with found to have significant hypoxia with the worsening congestion and cough productive dark phlegm along with significant weight gain and fluid retention. Ended up coming via EMS to demurs department at [facility] where was seen and evaluated his influenza A was positive ration found to be in quite bed fluid overload with pro-BNP was 85, 000 patient chest x-ray showed sign of pneumonia as well he was started on Zosyn and Levaquin along with Tamiflu patient will be seen pulmonary and admitted to the hospital with above problem. He continues to have hypotension, has been given IV fluids boluses in an attempt to keep his PD exchanges control as far as fluid balance is concerned. In spite of this blood. Sometimes in the 70s. He is lethargic. His BUN and creatinine is somewhat high and concern about uremia is raised. He is on 2500 mL 4 exchanges a day. And he is is currently on nasal cannula oxygen This morning he has severe thrush of his mouth. Blood pressure in the 70s as mentioned. A chest x-ray shows possible congestive heart failure. His serum sodium is down to 127. His creatinine is 8 and BNS 89. Calcium is 7.7 phosphorus 5.4 bicarb is 21. Objective - Vital Signs Vital signs: Vital Signs Temp 98.2 F 12/23/18 08:00 Pulse 71 12/23/18 09:00 Resp 25 H 12/23/18 09:00 BP 90/52 12/23/18 09:00 Pulse Ox 93 L 12/23/18 09:00 Intake & Output 12/22/18 12/23/18 12/23/18 18:59 06:59 18:59 Intake Total 570 296 15 Balance 570 296 15 Weight 59 kg Intake: IV 50 60 15 .9 50 60 15 Intake, IV Titration 520 Amount Sodium Chloride 0.9% 1, 20 000 ml @ 20 mls/hr IV . Q24H [facility] Rx#:[id number] Sodium Chloride 0.9% 500 500 ml 500 ml @ 999 mls/hr IV .Q31M ONE Rx#:[id number] Oral 236 Other: Voiding Method Diaper Urinal Diaper Incontinent Diaper Incontinent Incontinent # Voids 0 0 # Bowel Movements 2 1 On examination he is lethargic blood pressure in the 70s is in normal sinus rhythm but has history of atrial fibrillation A chin exam no JVP neck is supple no facial asymmetry Lungs are clear to auscultation fair air entry bilaterally He is on 3 L nasal cannula Heart sounds are unremarkable for any murmur rub gallop Abdomen soft nontender. Extremities site is clear Extremity exam was no edema Neurologically lethargic - Labs CBC & Chem 7: 12/23/18 04:52 12/23/18 05:07 Labs: Abnormal Lab Results - Last 24 Hours (Table) 12/23/18 12/23/18 12/23/18 Range/Units 04:52 05:07 06:52 WBC 12.9 H (3.8-10.6) k/uL RBC 3.55 L (4.30-5.90) m/uL Hgb 10.7 L (13.0-17.5) gm/dL Hct 33.6 L (39.0-53.0) % RDW 18.7 H (11.5-15.5) % Neutrophils # 11.7 H (1.3-7.7) k/uL Lymphocytes # 0.6 L (1.0-4.8) k/uL Sodium 127 L (137-145) mmol/L Chloride 91 L (98-107) mmol/L Carbon Dioxide 21 L (22-30) mmol/L BUN 89 H (9-20) mg/dL Creatinine 8.04 H* (0.66-1.25) mg/dL POC Glucose (mg/dL) 110 H (75-99) mg/dL Calcium 7.7 L (8.4-10.2) mg/dL Phosphorus 5.4 H (2.5-4.5) mg/dL Magnesium 3.4 H (1.6-2.3) mg/dL Microbiology - Last 24 Hours (Table) 12/18/18 02:12 Blood Culture - Preliminary Blood No Growth after 120 hours 12/18/18 20:38 Gram Stain - Final Peritoneal Fluid Body Fluid Culture - Final Assessment and Plan Assessment: Impression 1. ESRD on peritoneal dialysis. On 1.5% 2500 mL 4 exchanges a day 2. admitted with pneumonia and influenza A, 3. Depression chronic 4. History of atrial fibrillation currently in normal sinus rhythm 5. Low blood pressure, echocardiogram done this admission rules out any pericardial effusion, but his ejection fraction 20-25% which is a decrease compared to 2018 echocardiogram when it was 40%. Rule out TN. Rule out hypothyroidism and adrenal insufficiency. Recommendation 1. Agree with boluses as needed for low blood pressure. 2. Continue 1.5% exchanges, 2500 mL but increase the exchanges from 4-to 5 exchanges as at home he is doing cycler exchange F 10 L and a midday exchange of 2000 mL/h caregiver who helps him. I discussed this with her. 3. Anemia with hemoglobin 11.3 at target. 4. MBD calcium and normal phosphorus is normal. 5. ensure adequate nutritional support with supplemental. 6. Check TSH, cortisol level, troponin. 7. Discussed with caregiver 8. Discussed with Dr. Willis merchandising specialist. 9. Check urea nitrogen in the dialysate to calculate adequacy of dialysis/KT/V
--- NOTE | 2018-12-23 10:47 | P.PN ---
Subjective Progress Note Date: 12/23/18 73-year-old male who is known from [facility] was hospitalized last week with hip fracture post-ORIF who had severe lethargy and change in mental status after surgery was transferred to [facility] where was seen by neurology and evaluated and found to have severe encephalopathy mostly medication related medication were adjusted patient started to feel much better still have no weight bearing on the hip area was transferred to [facility] for rehab. Patient is doing CAPD 4 end-stage renal disease and has been doing well with it continue to decline over ROM the last 12 hours. 2 calling EMS with found to have significant hypoxia with the worsening congestion and cough prod uctive dark phlegm along with significant weight gain and fluid retention. Ended up coming via EMS to demurs department at [facility] where was seen and evaluated his influenza A was positive ration found to be in quite bed fluid overload with pro-BNP was 85,000 patient chest x-ray showed sign of pneumonia as well he was started on Zosyn and Levaquin along with Tamiflu patient will be seen pulmonary and admitted to the hospital with above problem. 12/19: Patient is receiving CAPD managed by Dr. Wilkinson. The removed significant fluid last night. Chest x-ray was ordered this morning. The patient has been seen by pulmonary medicine for multifactorial dyspnea but doubt pneumonia but w e'll plan to continue antibiotics. Cardiology is following for heart failure and fluid overload. They have decreased amiodarone to 200 mg daily and also recommend starting eliquis 5 mg twice daily. Acute coronary syndrome ruled out. Echocardiogram reveals EF 25-30% with LA severely dilated, mild mitral regurgitation, mild tricuspid regurgitation, borderline pulmonary hypertension. 12/20: Patient states he is feeling better today with decreased shortness of breath. He remains in influenza isolation. Paul removed moved from his previous hip surgery done yesterday. He is continued on CAPD managed by Dr. Wilkinson. He has been afebrile, blood pressure 93/55, heart rate in the 70s and 80s, pulse ox 99% on 3 L nasal cannula. The chest x-ray from yesterday reveals increasing interstitial infiltrates and edema compared to last exam. This could be worsening heart failure. 12/21: Patient had low blood pressure this morning and dialysis fluid has been adjusted by nephrology. Atenolol was held this morning. Patient has been eating very little and agrees that he is depressed. Remeron added at bedtime. CODE STATUS clarified for DO NOT RESUSCITATE. PT and OT are following the patient and he is total assist with early fatigue. He remains afebrile, heart rate running in the 80s, pulse ox 97% on 2 L. White count 13.8, hemoglobin 10.8. Sodium 132, potassium 4.4, chloride 90, CO2 27, BUN 77 creatinine 8.29. Blood sugars run between 107 and 165. Albumin is 2.6. Anticipate discharge back to [facility] on Monday. 12/22: Patient continues to have low blood pressure this morning. Patient has not had CAPD at this time due to the low blood pressure. Dr. Wilkinson has CAPD on hold until systolic is greater than 100. Patient's appetite continues to be poor. Affect continues to be depressed. Remeron was added. Patient remained afebrile, heart rate running in the 80s, pulse ox around 96-97% on 2 L. WAC 19.8, hemoglobin 11.3, sodium 132 potassium 4.6, chloride 90, BUN 77 creatinine 8.21. Lactic acid 1.8 12/23: Patient still has poor appetite complaining of sores in mouth. Upon examination thrush is present. Patient continues to be hypotensive blood pressure today 90/52 with a heart rate of 71. Affect continues to be depressed. Patient remains afebrile. Pulse ox 93% on room air. Blood sugar is running between 94 and 110. Family is at the bedside. Review of Systems CONSTITUTIONAL: No fever no chills. EYES: No icterus sclerae, no conjunctivitis. EARS, NOSE, MOUTH, THROAT, and FACE: Reports sores in mouth No sore throat, lymphadenopathy, carotid bruits or deformity. RESPIRATORY: Positive dyspnea and shortness of breath. CARDIOVASCULAR: Positive PND orthopnea palpitation. GASTROINTESTINAL: Abdominal distention and ascites from his CAPD. GENITOURINARY: Negative for Hematuria or UTI, no kidney stones. INTEGUMENT/BREAST: Possible right hip pain. HEMATOLOGIC/LYMPHATIC: Negative for bleed or purpura. MUSCULOSKELTAL: Negative for Myalgia or arthralgia. NEURLOGICAL: No LOC, Sz or syncope, blurred vision dizziness or abnormality. BEHAVIORAL/PSYCH: Reports depression reports lack of appetite. ENDOCRINE: Negative. Objective - Vital Signs Vital signs: Vital Signs Temp 98.2 F 12/23/18 08:00 Pulse 71 12/23/18 09:00 Resp 25 H 12/23/18 09:00 BP 90/52 12/23/18 09:00 Pulse Ox 93 L 12/23/18 09:00 Intake & Output 12/22/18 12/23/18 12/23/18 18:59 06:59 18:59 Intake Total 570 296 15 Balance 570 296 15 Weight 59 kg Intake: IV 50 60 15 .9 50 60 15 Intake, IV Titration 520 Amount Sodium Chloride 0.9% 1, 20 000 ml @ 20 mls/hr IV . Q24H [facility] Rx#:[id number] Sodium Chloride 0.9% 500 500 ml 500 ml @ 999 mls/hr IV .Q31M [facility] Rx#:[id number] Oral 236 Other: Voiding Method Diaper Urinal Diaper Incontinent Diaper Incontinent Incontinent # Voids 0 0 # Bowel Movements 2 1 - Exam General Appearance: Alert, thin, cooperative, he seems older than his age. No respiratory distress noted. Neck HEENT: Supple, positive thrush, no lymphadenopathy, no thyroid enlargement, no carotid bruits. Lungs: Decreased breath some bilateral fine rhonchi positive mild crackles in the bases specially the right side with mild inspiratory expiratory wheezes as well. Chest Wall: Chest wall normal expansion with deep inspiration no tenderness and no deformity was found on exam, no costochondral pain or discomfort. Heart: Irregular rhythm and rate S1,S2 +S3, +5 cm JVD. Back: Symmetric, no curvature, ROM normal, no CVA tenderness. Abdomen: Soft positive bowel sound patient had quite Ascites from his CAPD fluid with mild discomfort Extremities: Right side incision looks fine with slight edema around it trace edema on the lower side of his neck as well. Pulses: 2+ and symmetric. Skin: Skin color, texture, tugor normal, no rashes or lesions. Neurologic: Alert oriented x3 cranial nerves II through XII intact, no motor deficit, gait not assessed. Affect flat and depressed - Labs CBC & Chem 7: 12/23/18 04:52 12/23/18 05:07 Labs: Abnormal Lab Results - Last 24 Hours (Table) 12/23/18 12/23/18 12/23/18 Range/Units 04:52 05:07 06:52 WBC 12.9 H (3.8-10.6) k/uL RBC 3.55 L (4.30-5.90) m/uL Hgb 10.7 L (13.0-17.5) gm/dL Hct 33.6 L (39.0-53.0) % RDW 18.7 H (11.5-15.5) % Neutrophils # 11.7 H (1.3-7.7) k/uL Lymphocytes # 0.6 L (1.0-4.8) k/uL Sodium 127 L (137-145) mmol/L Chloride 91 L (98-107) mmol/L Carbon Dioxide 21 L (22-30) mmol/L BUN 89 H (9-20) mg/dL Creatinine 8.04 H* (0.66-1.25) mg/dL POC Glucose (mg/dL) 110 H (75-99) mg/dL Calcium 7.7 L (8.4-10.2) mg/dL Phosphorus 5.4 H (2.5-4.5) mg/dL Magnesium 3.4 H (1.6-2.3) mg/dL Microbiology - Last 24 Hours (Table) 12/18/18 02:12 Blood Culture - Preliminary Blood No Growth after 120 hours 12/18/18 20:38 Gram Stain - Final Peritoneal Fluid Body Fluid Culture - Final Assessment and Plan Plan: 1 acute hypoxic respiratory failure: Combination of possible pneumonia not ruled out, influenza A, and acute on chronic heart failure. Patient to continue CAPD, DuoNeb treatments, Levaquin, Zosyn. acute coronary syndrome ruled out by cardiology. 2 fluid overload: acute on chronic systolic heart failure with severe impaired left ventricular function patient has been on medical management with his chronic kidney disease this is a contributing factor this point. Continue CAPD we'll consult nephrology and if patient continued to decline might require hemodialysis in the meanwhile continue medical management. 3 COPD: Consult with pulmonary medicine appreciated. Continue nebulizer treatments and oxygen. 4 influenza A: Tamiflu completed. 5 interstitial pneumonitis: Patient was started on Zosyn and Levaquin awaiting for the final culture. 6 CHF exacerbation: Mostly systolic dysfunction with acute on a chronic heart failure continue diuretics continue current management. 7 elevated troponin: Cardiology consult appreciated. Acute coronary syndrome ruled out. 8 recent hip fracture: Post ORIF still in rehab at [facility]. [place] have been removed. 9 end-stage renal disease: On CAPD has been seen nephrology for long time we'll consult nephrology at this point. CAPD on hold for Dr. Wilkinson until systolic blood pressure greater than 100 10 A. fib with RVR, paroxysmal atrial fibrillation: Amiodarone adjusted by cardiology to 200 mg daily. Patient may need eliquis 5 mg twice daily. 11 type 2 diabetes: Continue NovoLog per sliding scales. 12 hyperlipidemia: On Lopid 6 in the milligrams daily. 13 chronic anemia: On multivitamins and iron also still on Aranesp on weekly basis. 14 severe GERD/GI prophylaxis: Patient remain on Protonix 40 mg daily. 15 chronic pain syndrome: On pain management patient is on a on tramadol 50 mg 4 times a day as needed. 16. Recurrent depression with loss of appetite. Remeron added at bedtime, continue Zoloft. Increase midodrine 10 mg before meals 3 times a day 17. Jane stomatitis. Starts clotrimazole [id number] mg swish and spit CODE STATUs: NO CODE PER PATIENT WISHES. Discharge plan: Return to [facility] Impression and plan of care have been directed as dictated by the signing physician. Eli Murdock nurse practitioner acting as scribe for signing physician.
[2018-12-23 11:50] LABS: Glucose,Whole Blood 85 mg/dL (75-99)
[2018-12-23] MEDS ORDERED: MIDODRINE 5 MG TAB PO SCH (12:30)
--- NOTE | 2018-12-23 12:50 | P.PN ---
Subjective Progress Note Date: 12/23/18 A 73-year-old male patient with multiple medical problems and comorbidities including ischemic cardiomyopathy, end-stage renal disease currently on peritoneal dialysis in addition to hypertension and hyperlipidemia, Dr. disease with previous endarterectomy, and mitral insufficiency. The patient came in with increased shortness of breath cough chest congestion wheezing and hypoxemia. Apparently his brother was also sick. The patient was diagnosed having an influenza A tracheobronchitis. He was started on Tamiflu. He was given 1 dose. He was also placed on oxygen therapy and currently is on 3 L of oxygen nasal cannula. He hasn't defervesced and he doesn't have any temperature for the time being. He is undergoing peritoneal dialysis 3 exchanges a day and the dialysate is being altered and modified by nephrology. The patient is producing adequate amount of output during this exchanges. No chest pain. As mentioned he has ischemic cardiomyopathy with an echocardiogram showing impaired LV function of around 20%. No significant signs of fluid overload. No leg edema. The chest x-ray showed cardiomegaly with some mild four-vessel congestion. Still lethargic and weak although improved compared to yesterday. No other significant events overnight. On today's evaluation of 12/20/2018, the patient remains quite lethargic. He is awake and alert and is following commands and answer questions appropriately. He looks very weak and tired and fatigued. No signs of any acute respiratory distress. The patient is still being treated conservatively for an underlying influenza A tracheobronchitis. No significant cough or sputum production. He remains on DuoNeb nebulized treatments around the clock.. . Fluids also was sent from the abdominal cavity and peritoneal cavity and there is also still negative for now. Blood cultures still negative for now. Patient is continuing his peritoneal dialysis under the supervision of nephrology. He is afebrile. He is hemodynamically stable. Pulse oxing 99% oxygen by nasal cannula. The patient did not have a follow-up chest x-ray from today. He remains in droplet isolation. No nausea. No vomiting. No emesis. No other significant events otherwise for now On 12/21/2018 patient seen in follow-up on [facility]. he is somnolent, but easily arousable to stimuli, appears to be fatigued, denies any acute complaints, denies any shortness of breath, denies any chest pain, sounds are positive for a few scattered rhonchi, no wheezing. Pulse ox on 2 L per nasal cannula was 96%, patient is afebrile, did receive 1 dose of oral Tamiflu for influenza A infection, continues on IV Zosyn and Levaquin. Group A strep throat culture was negative, blood cultures and peritoneal fluid cultures are negative thus far. She is slightly hypotensive, with a blood pressure 85/49 with a mean of 61. Nephrology is following, patient is getting peritoneal dialysis exchanges. On 12/22/2018, and seeing this patient for a follow-up. Note that the patient had few episodes of bright red blood per rectum on the medical floor and the patient became hypotensive. For that reason the patient got transferred to the intensive care unit. I gave him a 500 mL of normal saline bolus. He did not require any pressors. Upon further questioning, the family members tell me that the patient had a colonoscopy that was done and [facility] and apparently the colonoscopy was negative and the patient had some hemorrhoids problems. In any rate, the hemoglobin did not drop. The patient is not bleeding and he had brown bowel moments subsequently. However, and that concerned of his underlying mentation. The patient looks encephalopathic. There is a component of metabolic encephalopathy. He would arouse and he was follow simple commands. If left unstimulated, he would go to sleep. He is not having any focal neurological deficits. No seizure activity. A CAT scan of the head that was done during his last admission showed chronic white matter changes without any acute abnormalities. Apparently, post his hip surgery the patient was also slow to recover and remained sleepy and fatigued and lethargic for an extended period of time. He is still undergoing his peritoneal dialysis. He was treated for an influenza a pulmonary infection. His cough is congested. No significant sputum production. His chest x-ray shows interstitial pattern consistent with CHF. He is eating although in my opinion is not reaching his caloric requirements. Today's evaluation of 12/23/2018, the patient remains essentially the same as yesterday. His lethargic. Sleepy. Arousable him a not much conversing. He is resting in bed comfortably. I still insisted the patient has a component of metabolic encephalopathy. I discussed this with the tester rocket engine and will going to change his PD regimen. He is doing 4 exchanges a day. Chest x-ray shows some mild pulmonary vascular congestion. No S4 distress. No cough or sputum production. His sodium is at 127. No signs of any significant fluid overload. Serum bicarb is 21 and there is no significant acidosis. His oral intake is diminished. We noticed that the patient has extensive oropharyngeal thrush and for that reason the patient will be be started on Diflucan orally. I am still raising the concern for uremia knowing that the patient is quite lethargic and somnolent for now. Blood pressures also fluctuating. Earlier during my evaluation he was noted to have a systolic blood pressure in the 70s. He was started on midodrine. He'll be given a 250 mL of normal saline bolus also. Objective - Vital Signs Vital signs: Vital Signs Temp 98.2 F 12/23/18 08:00 Pulse 71 12/23/18 09:00 Resp 25 H 12/23/18 09:00 BP 90/52 12/23/18 09:00 Pulse Ox 93 L 12/23/18 09:00 Intake & Output 12/22/18 12/23/18 12/23/18 18:59 06:59 18:59 Intake Total 570 296 15 Balance 570 296 15 Weight 59 kg Intake: IV 50 60 15 .9 50 60 15 Intake, IV Titration 520 Amount Sodium Chloride 0.9% 1, 20 000 ml @ 20 mls/hr IV . Q24H [facility] Rx#:[id number] Sodium Chloride 0.9% 500 500 ml 500 ml @ 999 mls/hr IV .Q31M ONE Rx#:[id number] Oral 236 Other: Voiding Method Diaper Urinal Diaper Incontinent Diaper Incontinent Incontinent # Voids 0 0 # Bowel Movements 2 1 - Exam General Appearance: Alert, cooperative, he seems older than his age. The patient is on oxygen at 3 L per minute nasal cannula Neck HEENT: Supple, no lymphadenopathy, no thyroid enlargement, no carotid bruits. Lungs: Decreased breath some bilateral fine rhonchi positive mild crackles in the bases specially the right side with mild inspiratory expiratory wheezes as well. Chest Wall: Chest wall normal expansion with deep inspiration no tenderness and no deformity was found on exam, no costochondral pain or discomfort. Heart: Irregular rhythm and rate S1,S2 +S3, +2 cm JVD. Back: Symmetric, no curvature, ROM normal, no CVA tenderness. Abdomen: Soft positive bowel sound patient had quite Ascites from his CAPD fluid with mild discomfort in the right upper quadrant area.The patient has a PD catheter and a PD site is clean and dry and intact. No direct tenderness or rebound tensile guarding at this point in time. Extremities: Right side incision looks fine with slight edema around it trace edema on the lower side of his neck as well. Pulses: 1+ and symmetric. Skin: Skin color, texture, tugor normal, no rashes or lesions. Neurologic: Lethargic, sleepy, arousable, follows simple commands and responds to questions appropriately. No focal neurological deficits. - Labs CBC & Chem 7: 12/23/18 04:52 12/23/18 05:07 Labs: Abnormal Lab Results - Last 24 Hours (Table) 12/23/18 12/23/18 12/23/18 Range/Units 04:52 05:07 06:52 WBC 12.9 H (3.8-10.6) k/uL RBC 3.55 L (4.30-5.90) m/uL Hgb 10.7 L (13.0-17.5) gm/dL Hct 33.6 L (39.0-53.0) % RDW 18.7 H (11.5-15.5) % Neutrophils # 11.7 H (1.3-7.7) k/uL Lymphocytes # 0.6 L (1.0-4.8) k/uL Sodium 127 L (137-145) mmol/L Chloride 91 L (98-107) mmol/L Carbon Dioxide 21 L (22-30) mmol/L BUN 89 H (9-20) mg/dL Creatinine 8.04 H* (0.66-1.25) mg/dL POC Glucose (mg/dL) 110 H (75-99) mg/dL Calcium 7.7 L (8.4-10.2) mg/dL Phosphorus 5.4 H (2.5-4.5) mg/dL Magnesium 3.4 H (1.6-2.3) mg/dL Troponin I (0.000-0.034) ng/mL 12/23/18 Range/Units 10:42 WBC (3.8-10.6) k/uL RBC (4.30-5.90) m/uL Hgb (13.0-17.5) gm/dL Hct (39.0-53.0) % RDW (11.5-15.5) % Neutrophils # (1.3-7.7) k/uL Lymphocytes # (1.0-4.8) k/uL Sodium (137-145) mmol/L Chloride (98-107) mmol/L Carbon Dioxide (22-30) mmol/L BUN (9-20) mg/dL Creatinine (0.66-1.25) mg/dL POC Glucose (mg/dL) (75-99) mg/dL Calcium (8.4-10.2) mg/dL Phosphorus (2.5-4.5) mg/dL Magnesium (1.6-2.3) mg/dL Troponin I 0.072 H* (0.000-0.034) ng/mL Microbiology - Last 24 Hours (Table) 12/18/18 02:12 Blood Culture - Preliminary Blood No Growth after 120 hours 12/18/18 20:38 Gram Stain - Final Peritoneal Fluid Body Fluid Culture - Final Assessment and Plan Plan: Assessment 1 acute hypoxic respiratory failure secondary to an acute influenza pulmonary infection/bronchitis. Pneumonia is doubtful, and the chest x-ray findings are stable for now 2 acute CHF exacerbation. The patient has systolic dysfunction with an ejection fraction of around 25% based on the most recent echocardiogram, and there is an interval drop in his echocardiogram with an ejection fraction back in 2018 being in the 40% range. Consider an ischemic cardiomyopathy. Patient did have a troponin leak at time of admission. 3 end-stage renal disease on peritoneal dialysis 4 hypotension, loss likely cardiac in nature in addition to the fact that the patient is having peritoneal dialysis. Possibility of adrenal insufficiency is considered to be less likely. 5 recent ORIF for right hip fracture 6 chronic atrial fibrillation maintained on amiodarone and oral Eliquis 7 diabetes mellitus type 2 8 hyperlipidemia 9 chronic anemia 10 diminished level of consciousness most likely consistent with metabolic encephalopathy. Rule out uremic encephalopathy. 11 brief hypotension recovered with IV fluids 12 lower GI bleed, most likely hemorrhoidal bleed. 13 debilitation and impaired performance and functional status secondary to above-mentioned comorbidities 14 oropharyngeal candidiasis Plan TR the supportive care. Agree on additional mitogen. Give the patient to 50 mL of normal saline bolus. Continue the 1.5% exchanges 2500 mL and will increase the exchanges to 5 times a day and the patient is doing cycler exchange. I raised the possibility of doing hemodialysis with a tester rocket engine and this will be reevaluated later stage. Check serum cortisol level. Check TSH levels. Monitor the blood pressure. Monitor mental status. Overall pulmonary status is stable. There is obviously a component of metabolic encephalopathy. For that reason, further investigation will be done including checking a nitrogen in the dialysate to calculate the efficacy of peritoneal dialysis. We'll continue to follow. Keep the patient in ICU. He has developed oropharyngeal thrush and was started on oral Diflucan.
[2018-12-23] MEDS: CLOTRIMAZOLE TROCHE 10 MG TROCHE MUCOUS MEM SCH ×3 (12:52→21:08)
[2018-12-23] MEDS: SERTRALINE 25 MG TAB PO SCH (13:56)
[2018-12-23] MEDS: MULTIVITAMINS, THERA 1 EACH TAB PO SCH (13:56)
[2018-12-23] MEDS: FLUCONAZOLE 100 MG TAB PO SCH (14:00)
--- NOTE | 2018-12-23 16:15 | OP ---
OPERATIVE REPORT PREOP DIAGNOSIS: Hypotension. POSTOP DIAGNOSIS: Hypotension. PROCEDURE PERFORMED: Insertion of triple-lumen catheter. SITE OF INSERTION: Right IJ. TRIPLE LUMEN CATHETER PLACEMENT: Indication Hemodynamic monitoring/Intravenous access. A time-out was completed verifying correct patient, procedure, site, positioning, and implant(s) or special equipment if applicable. The patient was placed in a dependent position appropriate for triple lumen catheter placement based on the vein to be cannulated. The patient's right neck was prepped and draped in sterile fashion. 1% Lidocaine was used to anesthetize the surrounding skin area. A triple lumen 9F Cordis catheter was introduced into the internal jugular vein using Seldinger technique. The catheter was threaded smoothly over the guide wire and appropriate blood return was obtained. Each lumen of the catheter was evacuated of air and flushed with sterile saline. The catheter was then sutured in place to the skin and a sterile dressing applied. Perfusion to the extremity distal to the point of catheter insertion was checked and found to be adequate. Clay dictating on a Lex Quintanilla procedure note insertion of a triple-lumen catheter site of insertion right IJ preop diagnosis hypotension postop diagnosis the same. No bedside complication or bleeding. Chest x-rays to follow use my standard form for procedure. MMODL / IJN: [id number] /
--- NOTE | 2018-12-23 16:31 | XR ---
EXAMINATION TYPE: XR chest 1V confirm line [facility] DATE OF EXAM: 12/23/2018 COMPARISON: 12/23/2018 INDICATION: Line placement TECHNIQUE: Single frontal view of the chest is obtained. FINDINGS: The heart size is normal. The pulmonary vasculature is normal. Mild infiltrates to the left perihilar and right perihilar regions. This has slight improvement over the interval. There appears to be placement of a right central venous catheter, tip appears to be through the right atrium and may be within the proximal inferior vena cava. This could be pulled back at least 8 cm. IMPRESSION: 1. No pneumothorax post right central venous catheter placement. Tip however is deep within the right atrium and could be pulled back minimally 8 cm. 2. Perihilar infiltrates slightly greater on the left extending periphery are stable to slightly impr anotnia from comparison
[2018-12-23] MEDS ORDERED: SODIUM CHLORIDE 0.9% 500 ML 500 ML IV ONE (17:00)
[2018-12-23 17:11] LABS: Glucose,Whole Blood 98 mg/dL (75-99)
[2018-12-23 21:02] LABS: Glucose,Whole Blood 115 mg/dL (75-99)
[2018-12-23] MEDS: MIRTAZAPINE 15 MG TAB PO SCH (21:09)
[2018-12-24] MEDS: CLOTRIMAZOLE TROCHE 10 MG TROCHE MUCOUS MEM SCH ×5 (00:34→20:33)
[2018-12-24] MEDS: DIALYSIS (PERIT 1.5%) 2,500 ML 37.5 G/2,500 ML BAG INTRAPERIT SCH ×5 (00:45→20:26)
[2018-12-24 05:02] LABS: Anisocytosis Slight; Basophils % (A) 0 %; Eosinophils # (A) 0.1 k/uL (0-0.7); Eosinophils % (A) 1 %; HCT 30.4 % (39.0-53.0); HGB 9.5 gm/dL (13.0-17.5); Hypochromasia Slight; Lymphocytes # (A) 0.6 k/uL (1.0-4.8); Lymphocytes % (A) 5 %; MCH 28.3 pg (25.0-35.0); MCHC 31.4 g/dL (31.0-37.0); MCV 90.2 fL (80.0-100.0); Mean Platelet Volume 7.2; Monocytes # (A) 0.2 k/uL (0-1.0); Monocytes % (A) 2 %; Neutrophils # (A) 10.2 k/uL (1.3-7.7); Neutrophils % (A) 91 %; Platelet Count 194 k/uL (150-450); Poikilocytosis Slight; RBC 3.37 m/uL (4.30-5.90); RDW 18.9 % (11.5-15.5); WBC 11.3 k/uL (3.8-10.6)
[2018-12-24] MEDS: PIPERACILLIN-TAZOBACTAM 3.375 GM in SODIUM CHLORIDE 0.9% 100 ML IVPB SCH ×2 (05:13→18:10)
[2018-12-24 05:16] LABS: Calcium 7.9 mg/dL (8.4-10.2); Potassium 3.5 mmol/L (3.5-5.1)
[2018-12-24 07:18] LABS: Glucose,Whole Blood 97 mg/dL (75-99)
--- NOTE | 2018-12-24 07:45 | XR ---
EXAMINATION TYPE: XR chest 1V DATE OF EXAM: 12/24/2018 COMPARISON: 12/23/2018 INDICATION: CHF TECHNIQUE: Single frontal view of the chest is obtained. FINDINGS: The heart size is upper limits of normal. The pulmonary vasculature is prominent. There is increasing diffuse infiltrate throughout the bilateral lungs. Correlate for congestive heart failure Right central venous catheter tip deep within the right atrium is unchanged in position. IMPRESSION: 1. Congestive heart failure. 2. Right central venous catheter is deep within the right atrium or within the proximal inferior vena cava.
[2018-12-24] MEDS: ENOXAPARIN 30 MG/0.3 ML SYRINGE SQ SCH (08:54)
[2018-12-24] MEDS: MIDODRINE 5 MG TAB PO SCH ×3 (08:54→19:00)
[2018-12-24] MEDS: AMIODARONE 200 MG TAB PO SCH (08:54)
[2018-12-24] MEDS: PANTOPRAZOLE 40 MG TABLET PO SCH ×2 (08:54→09:44)
[2018-12-24] MEDS: SEVELAMER 800 MG TAB PO SCH ×2 (08:54→20:33)
[2018-12-24] MEDS: ATORVASTATIN 40 MG TAB PO SCH ×2 (08:54→09:44)
[2018-12-24] MEDS: MULTIVITAMINS, THERA 1 EACH TAB PO SCH ×2 (08:54→11:07)
[2018-12-24] MEDS: ATENOLOL 12.5 MG TAB PO SCH (08:55)
[2018-12-24] MEDS: INSULIN ASPART (NovoLOG) 100 UNIT/ML VIAL SQ SCH ×4 (08:55→21:32)
[2018-12-24] MEDS: LIDOCAINE 5% PATCH TOPICAL SCH ×2 (09:14→13:59)
[2018-12-24] MEDS: FENOFIBRATE 160 MG TAB PO SCH ×2 (09:15→09:44)
[2018-12-24] MEDS: FLUCONAZOLE 100 MG TAB PO SCH (09:15)
[2018-12-24] MEDS: CALCIUM CARB-MAG CARB-FOLIC 1 EACH TAB PO SCH ×4 (09:15→19:00)
[2018-12-24] MEDS: GENTAMICIN 0.1% CREAM 15 GM TUBE TOPICAL SCH (09:16)
[2018-12-24] MEDS: SERTRALINE 25 MG TAB PO SCH (09:45)
[2018-12-24] MEDS: VELPHORO 500 MG PO SCH (09:45)
--- NOTE | 2018-12-24 11:17 | P.PN ---
Subjective Patient is seen in follow-up for end-stage renal disease. He is maintained on peritoneal dialysis. He is receiving 5 exchanges daily with 1.5% solution. He is maintaining a net negative fluid balance. Creatinine is trending down. BUN trending down as well. He is currently being treated for influenza A virus. Remains quite lethargic. He does have history of systolic CHF with ejection fraction of 25-30%. Vital signs are stable. General: The patient appeared well nourished and normally developed. HEENT: Head exam is unremarkable. Neck is without jugular venous distension. LUNGS: Lungs are clear to auscultation and percussion. Breath sounds decreased. HEART: Rate and Rhythm are regular. First and second heart sounds normal. No murmurs, rubs or gallops. ABDOMEN: Abdominal exam reveals normal bowel sounds. Non-tender and non- distended. No evidence of peritonitis. EXTREMITITES: No clubbing, cyanosis, or edema. Objective - Vital Signs Vital signs: Vital Signs Temp 98.5 F 12/24/18 08:00 Pulse 66 12/24/18 10:00 Resp 15 12/24/18 10:00 BP 108/56 12/24/18 10:00 Pulse Ox 98 12/24/18 10:00 Intake & Output 12/23/18 12/24/18 12/24/18 18:59 06:59 18:59 Intake Total 60 160 20 Output Total 0 0 Balance 60 160 20 Weight 58.4 kg 58.4 kg Intake: IV 60 160 20 .9 60 60 20 Piperacillin-Tazobactam 3 100 .375 gm In Sodium Chloride 0.9% 100 ml @ 25 mls/hr IVPB Q12H [facility] Rx# :[id number] Output: Urine 0 0 Other: Voiding Method Diaper CAPD CAPD Incontinent # Voids 0 0 # Bowel Movements 1 1 - Labs CBC & Chem 7: 12/24/18 04:55 12/24/18 04:55 Labs: Abnormal Lab Results - Last 24 Hours (Table) 12/23/18 12/23/18 12/24/18 Range/Units 10:42 20:50 04:55 WBC 11.3 H (3.8-10.6) k/uL RBC 3.37 L (4.30-5.90) m/uL Hgb 9.5 L (13.0-17.5) gm/dL Hct 30.4 L (39.0-53.0) % RDW 18.9 H (11.5-15.5) % Neutrophils # 10.2 H (1.3-7.7) k/uL Lymphocytes # 0.6 L (1.0-4.8) k/uL Sodium (137-145) mmol/L Chloride (98-107) mmol/L BUN (9-20) mg/dL Creatinine (0.66-1.25) mg/dL POC Glucose (mg/dL) 115 H (75-99) mg/dL Calcium (8.4-10.2) mg/dL Troponin I 0.072 H* (0.000-0.034) ng/mL 12/24/18 Range/Units 04:55 WBC (3.8-10.6) k/uL RBC (4.30-5.90) m/uL Hgb (13.0-17.5) gm/dL Hct (39.0-53.0) % RDW (11.5-15.5) % Neutrophils # (1.3-7.7) k/uL Lymphocytes # (1.0-4.8) k/uL Sodium 133 L (137-145) mmol/L Chloride 93 L (98-107) mmol/L BUN 75 H (9-20) mg/dL Creatinine 7.15 H* (0.66-1.25) mg/dL POC Glucose (mg/dL) (75-99) mg/dL Calcium 7.9 L (8.4-10.2) mg/dL Troponin I (0.000-0.034) ng/mL Microbiology - Last 24 Hours (Table) 12/18/18 02:12 Blood Culture - Final Blood No Growth after 144 hours Assessment and Plan Plan: Assessment: 1. End-stage renal disease maintained on peritoneal dialysis. 2. Influenza A virus. 3. Systolic CHF ejection fraction of 25-30%. 4. Chronic hypotension related to underlying cardiac status maintained on midodrine. Cortisol and TSH level normal. 5. Chronic kidney disease mineral bone disease maintained on phosphate binders. 6. Anemia of chronic kidney disease maintained on Aranesp. Plan: Maintain current PD exchanges. Check urea nitrogen from the dialysate to assess for clearance. Due to patient's underlying hypotension and cardiac status, he will not be a good long-term candidate for hemodialysis.
[2018-12-24 12:05] LABS: Glucose,Whole Blood 100 mg/dL (75-99)
[2018-12-24] MEDS: SODIUM CHLORIDE 0.9% 1,000 ML IV SCH (13:59)
--- NOTE | 2018-12-24 14:48 | P.PN ---
Subjective Progress Note Date: 12/24/18 73-year-old male who is known from [facility] was hospitalized last week with hip fracture post-ORIF who had severe lethargy and change in mental status after surgery was transferred to [facility] where was seen by neurology and evaluated and found to have severe encephalopathy mostly medication related medication were adjusted patient started to feel much better still have no weight bearing on the hip area was transferred to [facility] for rehab. Patient is doing CAPD 4 end-stage renal disease and has been doing well with it continue to decline over ROM the last 12 hours. 2 calling EMS with found to have significant hypoxia with the worsening congestion and cough pro ductive dark phlegm along with significant weight gain and fluid retention. Ended up coming via EMS to demurs department at [facility] where was seen and evaluated his influenza A was positive ration found to be in quite bed fluid overload with pro-BNP was 85,000 patient chest x-ray showed sign of pneumonia as well he was started on Zosyn and Levaquin along with Tamiflu patient will be seen pulmonary and admitted to the hospital with above problem. 12/19: Patient is receiving CAPD managed by Dr. Wilkinson. The removed significant fluid last night. Chest x-ray was ordered this morning. The patient has been seen by pulmonary medicine for multifactorial dyspnea but doubt pneumonia but we'll plan to continue antibiotics. Cardiology is following for heart failure and fluid overload. They have decreased amiodarone to 200 mg daily and also recommend starting eliquis 5 mg twice daily. Acute coronary syndrome ruled out. Echocardiogram reveals EF 25-30% with LA severely dilated, mild mitral regurgitation, mild tricuspid regurgitation, borderline pulmonary hypertension. 12/20: Patient states he is feeling better today with decreased shortness of breath. He remains in influenza isolation. [place] removed moved from his previous hip surgery done yesterday. He is continued on CAPD managed by Dr. Wilkinson. He has been afebrile, blood pressure 93/55, heart rate in the 70s and 80s, pulse ox 99% on 3 L nasal cannula. The chest x-ray from yesterday reveals increasing interstitial infiltrates and edema compared to last exam. This could be worsening heart failure. 12/21: Patient had low blood pressure this morning and dialysis fluid has been adjusted by nephrology. Atenolol was held this morning. Patient has been eating very little and agrees that he is depressed. Remeron added at bedtime. CODE STATUS clarified for DO NOT RESUSCITATE. PT and OT are following the patient and he is total assist with early fatigue. He remains afebrile, heart rate running in the 80s, pulse ox 97% on 2 L. White count 13.8, hemoglobin 10.8. Sodium 132, potassium 4.4, chloride 90, CO2 27, BUN 77 creatinine 8.29. Blood sugars run between 107 and 165. Albumin is 2.6. Anticipate discharge back to [facility] on Monday. 12/22: Patient continues to have low blood pressure this morning. Patient has not had CAPD at this time due to the low blood pressure. Dr. Wilkinson has CAPD on hold until systolic is greater than 100. Patient's appetite continues to be poor. Affect continues to be depressed. Remeron was added. Patient remained afebrile, heart rate running in the 80s, pulse ox around 96-97% on 2 L. WAC 19.8, hemoglobin 11.3, sodium 132 potassium 4.6, chloride 90, BUN 77 creatinine 8.21. Lactic acid 1.8 12/23: Patient still has poor appetite complaining of sores in mouth. Upon examination thrush is present. Patient continues to be hypotensive blood pressure today 90/52 with a heart rate of 71. Affect continues to be depressed. Patient remains afebrile. Pulse ox 93% on room air. Blood sugar is running between 94 and 110. Family is at the bedside. 12/24: There was an A=Team : The patient over the weekend for acute bleeding with few episodes of bright red blood per rectum and altered mental status, temp greater than 100 and patient was subsequently transferred to the intensive care unit. He received a fluid bolus but has not been on vasopressors. Blood pressu re this morning is 97/58, temperature 99.3, pulse ox 97% on 3 L nasal cannula, heart rate running in the 60s and 70s. White count is 11.3, hemoglobin 9.5. Sodium is improved to 133, potassium 3.5, chloride 93, CO2 27. BUN 75 and creatinine 7.15. Peritoneal fluid Gram stain hasn't finalized with no growth. Blood culture showing no growth and group A strep culture is finalized with no growth. Triple lumen was placed by Dr. Willis yesterday. Chest x-ray this morning reveals congestive heart failure. Right central line within the right atrium or within the proximal inferior vena cava. He is continued on CAPD. Patient remains very lethargic. He did have a bowel movement last night and this morning. Review of Systems CONSTITUTIONAL: No fever no chills. Generalized weakness, malaise EYES: No icterus sclerae, no conjunctivitis. EARS, NOSE, MOUTH, THROAT, and FACE: No sore throat, lymphadenopathy, carotid bruits or deformity. RESPIRATORY: Positive dyspnea and shortness of breath. CARDIOVASCULAR: Positive PND orthopnea palpitation. GASTROINTESTINAL: Abdominal distention and ascites from his CAPD. GENITOURINARY: Negative for Hematuria or UTI, no kidney stones. INTEGUMENT/BREAST: Possible right hip pain. HEMATOLOGIC/LYMPHATIC: Negative for bleed or purpura. MUSCULOSKELTAL: Negative for Myalgia or arthralgia. NEURLOGICAL: No LOC, Sz or syncope, blurred vision dizziness or abnormality. BEHAVIORAL/PSYCH: Reports depression reports lack of appetite. ENDOCRINE: Negative. Objective - Vital Signs Vital signs: Vital Signs Temp 99.3 F 12/24/18 06:12 Pulse 69 12/24/18 07:00 Resp 14 12/24/18 07:00 BP 97/58 12/24/18 07:00 Pulse Ox 97 12/24/18 07:00 Intake & Output 12/23/18 12/24/18 12/24/18 18:59 06:59 18:59 Intake Total 60 160 5 Output Total 0 Balance 60 160 5 Weight 58.4 kg Intake: IV 60 160 5 .9 60 60 5 Piperacillin-Tazobactam 3 100 .375 gm In Sodium Chloride 0.9% 100 ml @ 25 mls/hr IVPB Q12H [facility] Rx# :[id number] Output: Urine 0 Other: Voiding Method Diaper CAPD Incontinent # Voids 0 0 # Bowel Movements 1 1 - Exam General Appearance: Alert, thin, cooperative, he seems older than his age. No respiratory distress noted. Neck HEENT: Supple, no lymphadenopathy, no thyroid enlargement, no carotid brui ts. Lungs: Decreased breath some bilateral fine rhonchi positive mild crackles in the bases specially the right side with mild inspiratory expiratory wheezes as well. Chest Wall: Chest wall normal expansion with deep inspiration no tenderness and no deformity was found on exam, no costochondral pain or discomfort. Heart: Irregular rhythm and rate S1,S2 +S3, +5 cm JVD. Back: Symmetric, no curvature, ROM normal, no CVA tenderness. Abdomen: Soft, positive bowel sounds, CAPD fluid Extremities: Right side incision looks fine with slight edema around it trace edema on the lower side of his neck as well. Pulses: 2+ and symmetric. Skin: Skin color, texture, tugor normal, no rashes or lesions. Neurologic: Lethargic, oriented 1, no focal neuro deficit. - Labs CBC & Chem 7: 12/24/18 04:55 12/24/18 04:55 Labs: Abnormal Lab Results - Last 24 Hours (Table) 12/23/18 12/23/18 12/24/18 Range/Units 10:42 20:50 04:55 WBC 11.3 H (3.8-10.6) k/uL RBC 3.37 L (4.30-5.90) m/uL Hgb 9.5 L (13.0-17.5) gm/dL Hct 30.4 L (39.0-53.0) % RDW 18.9 H (11.5-15.5) % Neutrophils # 10.2 H (1.3-7.7) k/uL Lymphocytes # 0.6 L (1.0-4.8) k/uL Sodium (137-145) mmol/L Chloride (98-107) mmol/L BUN (9-20) mg/dL Creatinine (0.66-1.25) mg/dL POC Glucose (mg/dL) 115 H (75-99) mg/dL Calcium (8.4-10.2) mg/dL Troponin I 0.072 H* (0.000-0.034) ng/mL 12/24/18 Range/Units 04:55 WBC (3.8-10.6) k/uL RBC (4.30-5.90) m/uL Hgb (13.0-17.5) gm/dL Hct (39.0-53.0) % RDW (11.5-15.5) % Neutrophils # (1.3-7.7) k/uL Lymphocytes # (1.0-4.8) k/uL Sodium 133 L (137-145) mmol/L Chloride 93 L (98-107) mmol/L BUN 75 H (9-20) mg/dL Creatinine 7.15 H* (0.66-1.25) mg/dL POC Glucose (mg/dL) (75-99) mg/dL Calcium 7.9 L (8.4-10.2) mg/dL Troponin I (0.000-0.034) ng/mL Microbiology - Last 24 Hours (Table) 12/18/18 02:12 Blood Culture - Final Blood No Growth after 144 hours Assessment and Plan Plan: 1 acute hypoxic respiratory failure: Combination of possible pneumonia not ruled out, influenza A, and acute on chronic heart failure. Patient to continue CAPD, DuoNeb treatments, Levaquin, Zosyn. acute coronary syndrome ruled out by cardiology. 2 fluid overload: acute on chronic systolic heart failure with severe impaired left ventricular function patient has been on medical management with his chronic kidney disease this is a contributing factor this point. Continue CAPD we'll consult nephrology and if patient continued to decline might require hemodialysis in the meanwhile continue medical management. 3 COPD: Consult with pulmonary medicine appreciated. Continue nebulizer treatments and oxygen. 4 influenza A: Tamiflu completed. 5 interstitial pneumonitis: Patient was started on Zosyn and Levaquin awaiting for the final culture. 6 CHF exacerbation: Mostly systolic dysfunction with acute on a chronic heart failure continue diuretics continue current management. 7 elevated troponin: Cardiology consult appreciated. Acute coronary syndrome ruled out. 8 recent hip fracture: Post ORIF still in rehab at [facility]. [place] have been removed. 9 end-stage renal disease: On CAPD has been seen nephrology for long time we'll consult nephrology at this point. 10 A. fib with RVR, paroxysmal atrial fibrillation: Amiodarone adjusted by cardiology to 200 mg daily. Continue eliquis 5 mg twice daily. 11 type 2 diabetes: Continue NovoLog per sliding scales. 12 hyperlipidemia: On Lopid 6 in the milligrams daily. 13 chronic anemia: On multivitamins and iron also still on Aranesp on weekly basis. 14 severe GERD/GI prophylaxis: Patient remain on Protonix 40 mg daily. 15 chronic pain syndrome: On pain management patient is on a on tramadol 50 mg 4 times a day as needed. 16. Recurrent depression with loss of appetite. Remeron added at bedtime, continue Zoloft. 17. Acute lower GI bleeding most likely hemorrhoidal bleed. 18. Oropharyngeal candidiasis 19. Metabolic encephalopathy possibly related to uremia CODE STATUs: NO CODE PER PATIENT WISHES. Discharge plan: Return to [facility] Impression and plan of care have been directed as dictated by the signing physic ian. Margot Dorado nurse practitioner acting as scribe for signing physician.
--- NOTE | 2018-12-24 14:58 | P.PN ---
Subjective Progress Note Date: 12/24/18 A 73-year-old male patient with multiple medical problems and comorbidities including ischemic cardiomyopathy, end-stage renal disease currently on peritoneal dialysis in addition to hypertension and hyperlipidemia, Dr. disease with previous endarterectomy, and mitral insufficiency. The patient came in with increased shortness of breath cough chest congestion wheezing and hypoxemia. Apparently his brother was also sick. The patient was diagnosed having an influenza A tracheobronchitis. He was started on Tamiflu. He was given 1 dose. He was also placed on oxygen therapy and currently is on 3 L of oxygen nasal cannula. He hasn't defervesced and he doesn't have any temperature for the time being. He is undergoing peritoneal dialysis 3 exchanges a day and the dialysate is being altered and modified by nephrology. The patient is producing adequate amount of output during this exchanges. No chest pain. As mentioned he has ischemic cardiomyopathy with an echocardiogram showing impaired LV function of around 20%. No significant signs of fluid overload. No leg edema. The chest x-ray showed cardiomegaly with some mild four-vessel congestion. Still lethargic and weak although improved compared to yesterday. No other significant events overnight. On today's evaluation of 12/20/2018, the patient remains quite lethargic. He is awake and alert and is following commands and answer questions appropriately. He looks very weak and tired and fatigued. No signs of any acute respiratory distress. The patient is still being treated conservatively for an underlying influenza A tracheobronchitis. No significant cough or sputum production. He remains on DuoNeb nebulized treatments around the clock.. . Fluids also was sent from the abdominal cavity and peritoneal cavity and there is also still negative for now. Blood cultures still negative for now. Patient is continuing his peritoneal dialysis under the supervision of nephrology. He is afebrile. He is hemodynamically stable. Pulse oxing 99% oxygen by nasal cannula. The patient did not have a follow-up chest x-ray from today. He remains in droplet isolation. No nausea. No vomiting. No emesis. No other significant events otherwise for now On 12/21/2018 patient seen in follow-up on [facility]. he is somnolent, but easily arousable to stimuli, appears to be fatigued, denies any acute complaints, denies any shortness of breath, denies any chest pain, sounds are positive for a few scattered rhonchi, no wheezing. Pulse ox on 2 L per nasal cannula was 96%, patient is afebrile, did receive 1 dose of oral Tamiflu for influenza A infection, continues on IV Zosyn and Levaquin. Group A strep throat culture was negative, blood cultures and peritoneal fluid cultures are negative thus far. She is slightly hypotensive, with a blood pressure 85/49 with a mean of 61. Nephrology is following, patient is getting peritoneal dialysis exchanges. On 12/22/2018, and seeing this patient for a follow-up. Note that the patient had few episodes of bright red blood per rectum on the medical floor and the patient became hypotensive. For that reason the patient got transferred to the intensive care unit. I gave him a 500 mL of normal saline bolus. He did not require any pressors. Upon further questioning, the family members tell me that the patient had a colonoscopy that was done and [facility] and apparently the colonoscopy was negative and the patient had some hemorrhoids problems. In any rate, the hemoglobin did not drop. The patient is not bleeding and he had brown bowel moments subsequently. However, and that concerned of his underlying mentation. The patient looks encephalopathic. There is a component of metabolic encephalopathy. He would arouse and he was follow simple commands. If left unstimulated, he would go to sleep. He is not having any focal neurological deficits. No seizure activity. A CAT scan of the head that was done during his last admission showed chronic white matter changes without any acute abnormalities. Apparently, post his hip surgery the patient was also slow to recover and remained sleepy and fatigued and lethargic for an extended period of time. He is still undergoing his peritoneal dialysis. He was treated for an influenza a pulmonary infection. His cough is congested. No significant sputum production. His chest x-ray shows interstitial pattern consistent with CHF. He is eating although in my opinion is not reaching his caloric requirements. Today's evaluation of 12/23/2018, the patient remains essentially the same as yesterday. His lethargic. Sleepy. Arousable him a not much conversing. He is resting in bed comfortably. I still insisted the patient has a component of metabolic encephalopathy. I discussed this with the real estate internship and will going to change his PD regimen. He is doing 4 exchanges a day. Chest x-ray shows some mild pulmonary vascular congestion. No S4 distress. No cough or sputum production. His sodium is at 127. No signs of any significant fluid overload. Serum bicarb is 21 and there is no significant acidosis. His oral intake is diminished. We noticed that the patient has extensive oropharyngeal thrush and for that reason the patient will be be started on Diflucan orally. I am still raising the concern for uremia knowing that the patient is quite lethargic and somnolent for now. Blood pressures also fluctuating. Earlier during my evaluation he was noted to have a systolic blood pressure in the 70s. He was started on midodrine. He'll be given a 250 mL of normal saline bolus also. On 12/24/2018 I'm seeing this patient for a follow-up. He is neurologic status is still the same. I will say he is very much lethargic and somnolent and probably encephalopathic. He is arousable. He follows simple commands. He is weak. He is unable to swallow a lot of the food material with pulling in the back of his throat. He was found to have oropharyngeal candidiasis and the patient was started on Diflucan. He is undergoing peritoneal dialysis. No fever or chills. I inserted a triple lumen catheter on him. I give him a bolus of IV fluids. His blood pressures under better control for now. He is on no pressors. He is afebrile. Pulse ox is 97% on 3 L of oxygen by nasal cannula. Tach on is 11.3. His creatinine is at 7.15. Sodium level is improved is up to 133 with a potassium level of 3.5. No other significant events otherwise for now. Denies having any headaches. He is moving all 4 extremities. No seizure activity has been noted. No signs of any fluid overload. The chest x-ray post-line insertion showed some CHF and the line was inserted. Being within the right atrium. Objective - Vital Signs Vital signs: Vital Signs Temp 98.5 F 12/24/18 12:00 Pulse 69 12/24/18 13:00 Resp 18 12/24/18 13:00 BP 116/65 12/24/18 13:00 Pulse Ox 97 12/24/18 13:00 Intake & Output 12/23/18 12/24/18 12/24/18 18:59 06:59 18:59 Intake Total 60 160 40 Output Total 0 100 Balance 60 160 -60 Weight 58.4 kg 58.4 kg Intake: IV 60 160 40 .9 60 60 40 Piperacillin-Tazobactam 3 100 .375 gm In Sodium Chloride 0.9% 100 ml @ 25 mls/hr IVPB Q12H [facility] Rx# :[id number] Output: Urine 0 0 Other 100 Other: Voiding Method Diaper CAPD CAPD Incontinent # Voids 0 0 # Bowel Movements 1 1 - Exam General Appearance: Alert, cooperative, he seems older than his age. The patient is on oxygen at 3 L per minute nasal cannula Neck HEENT: Supple, no lymphadenopathy, no thyroid enlargement, no carotid bruits. The patient has a right IJ triple-lumen catheter in place. Lungs: Decreased breath some bilateral fine rhonchi positive mild crackles in the bases specially the right side with mild inspiratory expiratory wheezes as well. Chest Wall: Chest wall normal expansion with deep inspiration no tenderness and no deformity was found on exam, no costochondral pain or discomfort. Heart: Irregular rhythm and rate S1,S2 +S3, +2 cm JVD. Back: Symmetric, no curvature, ROM normal, no CVA tenderness. Abdomen: Soft positive bowel sound patient had quite Ascites from his CAPD fluid with mild discomfort in the right upper quadrant area.The patient has a PD catheter and a PD site is clean and dry and intact. No direct tenderness or rebound tensile guarding at this point in time. Extremities: Right side incision looks fine with slight edema around it trace edema on the lower side of his neck as well. Pulses: 1+ and symmetric. Skin: Skin color, texture, tugor normal, no rashes or lesions. Neurologic: Lethargic, sleepy, arousable, follows simple commands and responds to questions appropriately. No focal neurological deficits. - Labs CBC & Chem 7: 12/24/18 04:55 12/24/18 04:55 Labs: Abnormal Lab Results - Last 24 Hours (Table) 12/23/18 12/24/18 12/24/18 Range/Units 20:50 04:55 04:55 WBC 11.3 H (3.8-10.6) k/uL RBC 3.37 L (4.30-5.90) m/uL Hgb 9.5 L (13.0-17.5) gm/dL Hct 30.4 L (39.0-53.0) % RDW 18.9 H (11.5-15.5) % Neutrophils # 10.2 H (1.3-7.7) k/uL Lymphocytes # 0.6 L (1.0-4.8) k/uL Sodium 133 L (137-145) mmol/L Chloride 93 L (98-107) mmol/L BUN 75 H (9-20) mg/dL Creatinine 7.15 H* (0.66-1.25) mg/dL POC Glucose (mg/dL) 115 H (75-99) mg/dL Calcium 7.9 L (8.4-10.2) mg/dL 12/24/18 Range/Units 11:53 WBC (3.8-10.6) k/uL RBC (4.30-5.90) m/uL Hgb (13.0-17.5) gm/dL Hct (39.0-53.0) % RDW (11.5-15.5) % Neutrophils # (1.3-7.7) k/uL Lymphocytes # (1.0-4.8) k/uL Sodium (137-145) mmol/L Chloride (98-107) mmol/L BUN (9-20) mg/dL Creatinine (0.66-1.25) mg/dL POC Glucose (mg/dL) 100 H (75-99) mg/dL Calcium (8.4-10.2) mg/dL Microbiology - Last 24 Hours (Table) 12/18/18 02:12 Blood Culture - Final Blood No Growth after 144 hours Assessment and Plan Plan: Assessment 1 acute hypoxic respiratory failure secondary to an acute influenza pulmonary infection/bronchitis. Pneumonia is doubtful, and the chest x-ray findings are stable for now. The patient is currently off liters of oxygen nasal cannula per no signs of any significant rest or distress. 2 acute CHF exacerbation. The patient has systolic dysfunction with an ejection fraction of around 25% based on the most recent echocardiogram, and there is an interval drop in his echocardiogram with an ejection fraction back in 2018 being in the 40% range. Consider an ischemic cardiomyopathy. Patient did have a troponin leak at time of admission. 3 end-stage renal disease on peritoneal dialysis, the patient continues to undergo his PD exchanges. We are awaiting the urea nitrogen from the dialysate to assess for the clearance. 4 hypotension, loss likely cardiac in nature in addition to the fact that the patient is having peritoneal dialysis. The patient's serum cortisol is at 44. He TSH is at 0.49. 5 recent ORIF for right hip fracture 6 chronic atrial fibrillation maintained on amiodarone and oral Eliquis 7 diabetes mellitus type 2 8 hyperlipidemia 9 chronic anemia 10 diminished level of consciousness most likely consistent with metabolic encephalopathy. Rule out uremic encephalopathy. 11 brief hypotension recovered with IV fluids 12 lower GI bleed, most likely hemorrhoidal bleed. 13 debilitation and impaired performance and functional status secondary to above-mentioned comorbidities 14 oropharyngeal candidiasis, currently on Diflucan Plan I'm still concerned about this patient's diminished level of consciousness and lethargy. Obviously there is an issue with his swallow. Will need a Dobbhoff for enteral feeding and nutritional support. Continue Diflucan. We will also discussed with nephrology regarding his adequacy of dialysis with peritoneal exchanges. The urea nitrogen from the dialysis and is being tach related to assess his clearance. Meanwhile, we'll supplement him with enteral feeding for nutritional support. Serum cortisol is elevated and there is no indication for any adrenal insufficiency. Remained on IV Zosyn. He remains on Diflucan. He' ll be kept in ICU for the rest of the supportive care. We'll continue to follow make further recommendations based on his progress. His prognosis poor baseline above-mentioned comorbidities. There is a significant drop in his left ventricle ejection fraction probably related to an underlying ischemic cardiomyopathy.
[2018-12-24 17:06] LABS: Glucose,Whole Blood 111 mg/dL (75-99)
--- NOTE | 2018-12-24 18:50 | XR ---
EXAMINATION TYPE: XR chest 1V portable DATE OF EXAM: 12/24/2018 COMPARISON: 12/24/2018 HISTORY: Check tube placement TECHNIQUE: Single frontal view of the chest is obtained. FINDINGS: There is coarse pulmonary infiltrates. Heart appears enlarged. There is nasogastric tube w ith the tip over the body of the stomach. There are chest leads. IMPRESSION: Nasogastric tube appears in good position. Coarse pulmonary infiltrates consistent with congestive heart failure and pulmonary fibrosis. Heart and lungs unchanged.
[2018-12-24 21:01] LABS: Glucose,Whole Blood 97 mg/dL (75-99)
[2018-12-25] MEDS: CLOTRIMAZOLE TROCHE 10 MG TROCHE MUCOUS MEM SCH ×6 (00:31→20:09)
[2018-12-25] MEDS: DIALYSIS (PERIT 1.5%) 2,500 ML 37.5 G/2,500 ML BAG INTRAPERIT SCH ×5 (01:00→20:07)
[2018-12-25 05:31] LABS: Anisocytosis Slight; Basophils % (A) 0 %; Eosinophils # (A) 0.2 k/uL (0-0.7); Eosinophils % (A) 2 %; HCT 32.5 % (39.0-53.0); HGB 10.2 gm/dL (13.0-17.5); Hypochromasia Slight; Lymphocytes # (A) 0.8 k/uL (1.0-4.8); Lymphocytes % (A) 8 %; MCH 28.4 pg (25.0-35.0); MCHC 31.5 g/dL (31.0-37.0); MCV 90.2 fL (80.0-100.0); Mean Platelet Volume 7.3; Monocytes # (A) 0.3 k/uL (0-1.0); Monocytes % (A) 3 %; Neutrophils # (A) 8.6 k/uL (1.3-7.7); Neutrophils % (A) 87 %; Platelet Count 227 k/uL (150-450); Poikilocytosis Slight; RBC 3.61 m/uL (4.30-5.90); RDW 18.9 % (11.5-15.5); WBC 9.9 k/uL (3.8-10.6)
[2018-12-25] MEDS: LEVOFLOXACIN 500MG-D5W PMX 500 MG in DEXTROSE/WATER 1 100ML.BAG IVPB SCH (05:44)
[2018-12-25] MEDS: PIPERACILLIN-TAZOBACTAM 3.375 GM in SODIUM CHLORIDE 0.9% 100 ML IVPB SCH (05:53)
[2018-12-25 06:01] LABS: Calcium 8.2 mg/dL (8.4-10.2); Potassium 3.5 mmol/L (3.5-5.1)
[2018-12-25 06:59] LABS: Glucose,Whole Blood 116 mg/dL (75-99)
[2018-12-25] MEDS: INSULIN ASPART (NovoLOG) 100 UNIT/ML VIAL SQ SCH ×4 (06:59→20:35)
[2018-12-25] MEDS: SODIUM CHLORIDE 0.9% 1,000 ML IV SCH (06:59)
[2018-12-25] MEDS: MIDODRINE 5 MG TAB PO SCH ×3 (07:02→17:18)
[2018-12-25] MEDS: CALCIUM CARB-MAG CARB-FOLIC 1 EACH TAB PO SCH ×3 (07:03→17:18)
[2018-12-25] MEDS ORDERED: SODIUM CHLORIDE 0.9% 500 ML 500 ML IV ONE (08:26)
[2018-12-25] MEDS: IPRATROPIUM-ALBUTEROL 3 ML NEB INHALATION PRN (08:43)
[2018-12-25] MEDS: VELPHORO 500 MG PO SCH (09:06)
[2018-12-25] MEDS: AMIODARONE 200 MG TAB PO SCH (09:16)
[2018-12-25] MEDS: ATENOLOL 12.5 MG TAB PO SCH (09:16)
[2018-12-25] MEDS: ENOXAPARIN 30 MG/0.3 ML SYRINGE SQ SCH (09:21)
[2018-12-25] MEDS: ATORVASTATIN 40 MG TAB PO SCH (09:21)
[2018-12-25] MEDS: FENOFIBRATE 160 MG TAB PO SCH (09:22)
[2018-12-25] MEDS: SERTRALINE 25 MG TAB PO SCH (09:22)
[2018-12-25] MEDS: FLUCONAZOLE 100 MG TAB PO SCH (09:22)
[2018-12-25] MEDS: SEVELAMER 800 MG TAB PO SCH ×2 (09:24→20:09)
[2018-12-25] MEDS: PANTOPRAZOLE 40 MG TABLET PO SCH (09:24)
--- NOTE | 2018-12-25 09:28 | XR ---
EXAMINATION TYPE: XR chest 1V DATE OF EXAM: 12/25/2018 CLINICAL HISTORY: NG tube placement. TECHNIQUE: Single AP portable semiupright view of the chest is obtained. COMPARISON: Chest x-ray from one day earlier and older studies. FINDINGS: Nasogastric feeding tube is stable projecting below diaphragm. Overlying EKG leads are red emonstrated. There is suspected right internal jugular central venous catheter terminating in right a trium near IVC junction felt stable. Cardiac silhouette size is stable and upper limits of normal. Ob structing thoracic aorta. There is chronic parenchymal change with persistent lateral left mid lung o pacity. No pleural effusion or pneumothorax is seen bilaterally. Osseous structures are intact. IMPRESSION: Stable satisfactory positioning of nasogastric tube. Chronic parenchymal changes with per sistent left midlung atelectasis and/or infiltrate.
[2018-12-25] MEDS ORDERED: POTASSIUM CHLORIDE 20 MEQ in WATER FOR INJECTION 1 100ML.BAG IVPB STA (10:02)
[2018-12-25] MEDS: LIDOCAINE 5% PATCH TOPICAL SCH (10:19)
--- NOTE | 2018-12-25 10:26 | P.PN ---
Subjective Patient is seen in follow-up for end-stage renal disease. He is maintained on peritoneal dialysis. He is receiving 5 exchanges daily with 1.5% solution. He is maintaining a net negative fluid balance. Creatinine is trending down. BUN trending down as well. He is currently being treated for influenza A virus. Remains quite lethargic but more awake compared to yesterday. He does have history of systolic CHF with ejection fraction of 25-30%. Receiving tube feeding. Vital signs are stable. General: The patient appeared well nourished and normally developed. HEENT: Head exam is unremarkable. Neck is without jugular venous distension. LUNGS: Lungs are clear to auscultation and percussion. Breath sounds decreased. HEART: Rate and Rhythm are regular. First and second heart sounds normal. No murmurs, rubs or gallops. ABDOMEN: Abdominal exam reveals normal bowel sounds. Non-tender and non- distended. No evidence of peritonitis. EXTREMITITES: No clubbing, cyanosis, or edema. Objective - Vital Signs Vital signs: Vital Signs Temp 97.8 F 12/25/18 04:00 Pulse 72 12/25/18 08:51 Resp 20 12/25/18 08:51 BP 87/62 12/25/18 07:00 Pulse Ox 96 12/25/18 07:00 Intake & Output 12/24/18 12/25/18 12/25/18 18:59 06:59 18:59 Intake Total 60 490 Output Total 100 0 Balance -40 490 Weight 58.4 kg 58.4 kg Intake: IV 60 360 .9 60 60 Levofloxacin 500Mg-D5w 100 Pmx 500 mg In Dextrose/ Water 1 100ml.bag @ 100 mls/hr IVPB Q48H [facility] Rx#: [id number] Piperacillin-Tazobactam 3 200 .375 gm In Sodium Chloride 0.9% 100 ml @ 25 mls/hr IVPB Q12H [facility] Rx# :[id number] Tube Feeding 130 Output: Urine 0 0 Other 100 Other: Voiding Method CAPD CAPD - Labs CBC & Chem 7: 12/25/18 05:20 12/25/18 05:20 Labs: Abnormal Lab Results - Last 24 Hours (Table) 12/24/18 12/24/18 12/25/18 Range/Units 11:53 16:54 05:20 RBC 3.61 L (4.30-5.90) m/uL Hgb 10.2 L (13.0-17.5) gm/dL Hct 32.5 L (39.0-53.0) % RDW 18.9 H (11.5-15.5) % Neutrophils # 8.6 H (1.3-7.7) k/uL Lymphocytes # 0.8 L (1.0-4.8) k/uL Sodium (137-145) mmol/L Chloride (98-107) mmol/L BUN (9-20) mg/dL Creatinine (0.66-1.25) mg/dL Glucose (74-99) mg/dL POC Glucose (mg/dL) 100 H 111 H (75-99) mg/dL Calcium (8.4-10.2) mg/dL 12/25/18 12/25/18 Range/Units 05:20 06:47 RBC (4.30-5.90) m/uL Hgb (13.0-17.5) gm/dL Hct (39.0-53.0) % RDW (11.5-15.5) % Neutrophils # (1.3-7.7) k/uL Lymphocytes # (1.0-4.8) k/uL Sodium 135 L (137-145) mmol/L Chloride 93 L (98-107) mmol/L BUN 67 H (9-20) mg/dL Creatinine 7.07 H* (0.66-1.25) mg/dL Glucose 120 H (74-99) mg/dL POC Glucose (mg/dL) 116 H (75-99) mg/dL Calcium 8.2 L (8.4-10.2) mg/dL Assessment and Plan Plan: Assessment: 1. End-stage renal disease maintained on peritoneal dialysis. 2. Influenza A virus. 3. Systolic CHF ejection fraction of 25-30%. 4. Chronic hypotension related to underlying cardiac status maintained on midodrine. Cortisol and TSH level normal. 5. Chronic kidney disease mineral bone disease maintained on phosphate binders. 6. Anemia of chronic kidney disease maintained on Aranesp. Plan: Maintain current PD exchanges. Await urea nitrogen from the dialysate to assess for clearance. Due to patient's underlying hypotension and cardiac status, he will not be a good long-term candidate for hemodialysis. Will do trial of hydrocortisone to see if helps with BP. Discussed with primary team. Replace potassium. 40 mEq today.
--- NOTE | 2018-12-25 11:36 | P.PN ---
Subjective Progress Note Date: 12/25/18 A 73-year-old male patient with multiple medical problems and comorbidities including ischemic cardiomyopathy, end-stage renal disease currently on peritoneal dialysis in addition to hypertension and hyperlipidemia, Dr. disease with previous endarterectomy, and mitral insufficiency. The patient came in with increased shortness of breath cough chest congestion wheezing and hypoxemia. Apparently his brother was also sick. The patient was diagnosed having an influenza A tracheobronchitis. He was started on Tamiflu. He was given 1 dose. He was also placed on oxygen therapy and currently is on 3 L of oxygen nasal cannula. He hasn't defervesced and he doesn't have any temperature for the time being. He is undergoing peritoneal dialysis 3 exchanges a day and the dialysate is being altered and modified by nephrology. The patient is producing adequate amount of output during this exchanges. No chest pain. As mentioned he has ischemic cardiomyopathy with an echocardiogram showing impaired LV function of around 20%. No significant signs of fluid overload. No leg edema. The chest x-ray showed cardiomegaly with some mild four-vessel congestion. Still lethargic and weak although improved compared to yesterday. No other significant events overnight. On today's evaluation of 12/20/2018, the patient remains quite lethargic. He is awake and alert and is following commands and answer questions appropriately. He looks very weak and tired and fatigued. No signs of any acute respiratory distress. The patient is still being treated conservatively for an underlying influenza A tracheobronchitis. No significant cough or sputum production. He remains on DuoNeb nebulized treatments around the clock.. . Fluids also was sent from the abdominal cavity and peritoneal cavity and there is also still negative for now. Blood cultures still negative for now. Patient is continuing his peritoneal dialysis under the supervision of nephrology. He is afebrile. He is hemodynamically stable. Pulse oxing 99% oxygen by nasal cannula. The patient did not have a follow-up chest x-ray from today. He remains in droplet isolation. No nausea. No vomiting. No emesis. No other significant events otherwise for now On 12/21/2018 patient seen in follow-up on [facility]. he is somnolent, but easily arousable to stimuli, appears to be fatigued, denies any acute complaints, denies any shortness of breath, denies any chest pain, sounds are positive for a few scattered rhonchi, no wheezing. Pulse ox on 2 L per nasal cannula was 96%, patient is afebrile, did receive 1 dose of oral Tamiflu for influenza A infection, continues on IV Zosyn and Levaquin. Group A strep throat culture was negative, blood cultures and peritoneal fluid cultures are negative thus far. She is slightly hypotensive, with a blood pressure 85/49 with a mean of 61. Nephrology is following, patient is getting peritoneal dialysis exchanges. On 12/22/2018, and seeing this patient for a follow-up. Note that the patient had few episodes of bright red blood per rectum on the medical floor and the patient became hypotensive. For that reason the patient got transferred to the intensive care unit. I gave him a 500 mL of normal saline bolus. He did not require any pressors. Upon further questioning, the family members tell me that the patient had a colonoscopy that was done and [facility] and apparently the colonoscopy was negative and the patient had some hemorrhoids problems. In any rate, the hemoglobin did not drop. The patient is not bleeding and he had brown bowel moments subsequently. However, and that concerned of his underlying mentation. The patient looks encephalopathic. There is a component of metabolic encephalopathy. He would arouse and he was follow simple commands. If left unstimulated, he would go to sleep. He is not having any focal neurological deficits. No seizure activity. A CAT scan of the head that was done during his last admission showed chronic white matter changes without any acute abnormalities. Apparently, post his hip surgery the patient was also slow to recover and remained sleepy and fatigued and lethargic for an extended period of time. He is still undergoing his peritoneal dialysis. He was treated for an influenza a pulmonary infection. His cough is congested. No significant sputum production. His chest x-ray shows interstitial pattern consistent with CHF. He is eating although in my opinion is not reaching his caloric requirements. Today's evaluation of 12/23/2018, the patient remains essentially the same as yesterday. His lethargic. Sleepy. Arousable him a not much conversing. He is resting in bed comfortably. I still insisted the patient has a component of metabolic encephalopathy. I discussed this with the produce specialist and will going to change his PD regimen. He is doing 4 exchanges a day. Chest x-ray shows some mild pulmonary vascular congestion. No S4 distress. No cough or sputum production. His sodium is at 127. No signs of any significant fluid overload. Serum bicarb is 21 and there is no significant acidosis. His oral intake is diminished. We noticed that the patient has extensive oropharyngeal thrush and for that reason the patient will be be started on Diflucan orally. I am still raising the concern for uremia knowing that the patient is quite lethargic and somnolent for now. Blood pressures also fluctuating. Earlier during my evaluation he was noted to have a systolic blood pressure in the 70s. He was started on midodrine. He'll be given a 250 mL of normal saline bolus also. On 12/24/2018 I'm seeing this patient for a follow-up. He is neurologic status is still the same. I will say he is very much lethargic and somnolent and probably encephalopathic. He is arousable. He follows simple commands. He is weak. He is unable to swallow a lot of the food material with pulling in the back of his throat. He was found to have oropharyngeal candidiasis and the patient was started on Diflucan. He is undergoing peritoneal dialysis. No fever or chills. I inserted a triple lumen catheter on him. I give him a bolus of IV fluids. His blood pressures under better control for now. He is on no pressors. He is afebrile. Pulse ox is 97% on 3 L of oxygen by nasal cannula. Tach on is 11.3. His creatinine is at 7.15. Sodium level is improved is up to 133 with a potassium level of 3.5. No other significant events otherwise for now. Denies having any headaches. He is moving all 4 extremities. No seizure activity has been noted. No signs of any fluid overload. The chest x-ray post-line insertion showed some CHF and the line was inserted. Being within the right atrium. On today's evaluation of 12/25/2018, and seeing this patient for a follow-up. Slightly more awake and interactive compared to yesterday. Note that I found that the patient's swallow mechanism was poor. He also was not meeting his caloric requirements. Based on that, I inserted a Doppler of tube yesterday and he was started on enteral feeding for nutritional support. He is currently on 10 mL of Nepro. He is doing well and is tolerating his diet. No abdominal distention. He was slightly hypotensive earlier this morning. His CVP was low at 3. The patient will be given a bolus of 500 mL of normal saline. He continues to undergo his PD exchanges. He has completed his course of Zosyn. He is also on Levaquin. He was allegedly admitted for an acute influenza pulmonary infection/bronchitis. No abdominal distention. No focal neurological deficits. Despite his lethargy and sleepiness, the patient arouses without any major difficulties. He is oropharyngeal status has been adequately treated with Diflucan. The patient has no other specific complaints. Objective - Vital Signs Vital signs: Vital Signs Temp 97.8 F 12/25/18 04:00 Pulse 72 12/25/18 08:51 Resp 20 12/25/18 08:51 BP 87/62 12/25/18 07:00 Pulse Ox 96 12/25/18 07:00 Intake & Output 12/24/18 12/25/18 12/25/18 18:59 06:59 18:59 Intake Total 60 490 60 Output Total 100 0 0 Balance -40 490 60 Weight 58.4 kg 58.4 kg Intake: IV 60 360 20 .9 60 60 20 Levofloxacin 500Mg-D5w 100 Pmx 500 mg In Dextrose/ Water 1 100ml.bag @ 100 mls/hr IVPB Q48H [facility] Rx#: [id number] Piperacillin-Tazobactam 3 200 .375 gm In Sodium Chloride 0.9% 100 ml @ 25 mls/hr IVPB Q12H [facility] Rx# :[id number] Tube Feeding 130 40 Output: Urine 0 0 0 Other 100 Other: Voiding Method CAPD CAPD CAPD - Exam General Appearance: Alert, cooperative, he seems older than his age. The patient is on oxygen at 3 L per minute nasal cannula, the patient has a Dobbhoff in place Neck HEENT: Supple, no lymphadenopathy, no thyroid enlargement, no carotid bruits. The patient has a right IJ triple-lumen catheter in place. Lungs: Decreased breath some bilateral fine rhonchi positive mild crackles in the bases specially the right side with mild inspiratory expiratory wheezes as well. Chest Wall: Chest wall normal expansion with deep inspiration no tenderness and no deformity was found on exam, no costochondral pain or discomfort. Heart: Irregular rhythm and rate S1,S2 +S3, +2 cm JVD. Back: Symmetric, no curvature, ROM normal, no CVA tenderness. Abdomen: Soft positive bowel sound patient had quite Ascites from his CAPD fluid with mild discomfort in the right upper quadrant area.The patient has a PD catheter and a PD site is clean and dry and intact. No direct tenderness or rebound tensile guarding at this point in time. Extremities: Right side incision looks fine with slight edema around it trace edema on the lower side of his neck as well. Pulses: 1+ and symmetric. Skin: Skin color, texture, tugor normal, no rashes or lesions. Neurologic: Lethargic, sleepy, arousable, follows simple commands and responds to questions appropriately. No focal neurological deficits. Overall, the patient seems to be much more alert compared to yesterday. - Labs CBC & Chem 7: 12/25/18 05:20 12/25/18 05:20 Labs: Abnormal Lab Results - Last 24 Hours (Table) 12/24/18 12/24/18 12/25/18 Range/Units 11:53 16:54 05:20 RBC 3.61 L (4.30-5.90) m/uL Hgb 10.2 L (13.0-17.5) gm/dL Hct 32.5 L (39.0-53.0) % RDW 18.9 H (11.5-15.5) % Neutrophils # 8.6 H (1.3-7.7) k/uL Lymphocytes # 0.8 L (1.0-4.8) k/uL Sodium (137-145) mmol/L Chloride (98-107) mmol/L BUN (9-20) mg/dL Creatinine (0.66-1.25) mg/dL Glucose (74-99) mg/dL POC Glucose (mg/dL) 100 H 111 H (75-99) mg/dL Calcium (8.4-10.2) mg/dL 12/25/18 12/25/18 Range/Units 05:20 06:47 RBC (4.30-5.90) m/uL Hgb (13.0-17.5) gm/dL Hct (39.0-53.0) % RDW (11.5-15.5) % Neutrophils # (1.3-7.7) k/uL Lymphocytes # (1.0-4.8) k/uL Sodium 135 L (137-145) mmol/L Chloride 93 L (98-107) mmol/L BUN 67 H (9-20) mg/dL Creatinine 7.07 H* (0.66-1.25) mg/dL Glucose 120 H (74-99) mg/dL POC Glucose (mg/dL) 116 H (75-99) mg/dL Calcium 8.2 L (8.4-10.2) mg/dL Assessment and Plan Plan: Assessment 1 acute hypoxic respiratory failure secondary to an acute influenza pulmonary infection/bronchitis. Pneumonia is doubtful, and the chest x-ray findings are stable for now. The patient is currently off liters of oxygen nasal cannula per no signs of any significant rest or distress. 2 acute CHF exacerbation. The patient has systolic dysfunction with an ejection fraction of around 25% based on the most recent echocardiogram, and there is an interval drop in his echocardiogram with an ejection fraction back in 2018 being in the 40% range. Consider an ischemic cardiomyopathy. Patient did have a troponin leak at time of admission. 3 end-stage renal disease on peritoneal dialysis, the patient continues to undergo his PD exchanges. We are awaiting the urea nitrogen from the dialysate to assess for the clearance. 4 hypotension, loss likely cardiac in nature in addition to the fact that the patient is having peritoneal dialysis. The patient's serum cortisol is at 44. He TSH is at 0.49. 5 recent ORIF for right hip fracture 6 chronic atrial fibrillation maintained on amiodarone and oral Eliquis 7 diabetes mellitus type 2 8 hyperlipidemia 9 chronic anemia 10 diminished level of consciousness most likely consistent with metabolic encephalopathy. Rule out uremic encephalopathy. 11 brief hypotension recovered with IV fluids 12 lower GI bleed, most likely hemorrhoidal bleed. 13 debilitation and impaired performance and functional status secondary to above-mentioned comorbidities 14 oropharyngeal candidiasis, currently on Diflucan Plan Continue enteral feeding for nutritional support. Keep the Dobbhoff in place. Discontinue the Zosyn as the patient is completed his course of antibiotics. The patient is hypovolemic. CVP is low. He was given a bolus of 500 mL. I do not think there is any component of adrenal insufficiency. His hypotension is multifactorial. His ejection fraction is dropped significantly in addition to that his CVP is on the patient's quite dry as she is having frequent PD exchanges. We'll apply some of the fluids back. Continue enteral feeding and advance diet as tolerated. Continue Diflucan for oropharyngeal thrush. Apparently is not a good candidate for hemodialysis. We'll continue to follow. Prognosis poor baseline above-mentioned comorbidities. He'll awaiting the urea nitrogen from the dialysate to assess for his clearance.
[2018-12-25 12:20] LABS: Glucose,Whole Blood 93 mg/dL (75-99)
[2018-12-25] MEDS: HYDROCORTISONE SUCCINATE 100 MG/2 ML VIAL IV SCH ×2 (12:54→20:08)
[2018-12-25] MEDS: MULTIVITAMINS, THERA 1 EACH TAB PO SCH (12:57)
[2018-12-25] MEDS ORDERED: POTASSIUM CHLORIDE 20 MEQ in WATER FOR INJECTION 1 100ML.BAG IVPB ONE (14:00)
--- NOTE | 2018-12-25 15:41 | P.PN ---
Subjective Progress Note Date: 12/25/18 73-year-old male who is known from [facility] was hospitalized last week with hip fracture post-ORIF who had severe lethargy and change in mental status after surgery was transferred to [facility] where was seen by neurology and evaluated and found to have severe encephalopathy mostly medication related medication were adjusted patient started to feel much better still have no weight bearing on the hip area was transferred to [facility] for rehab. Patient is doing CAPD 4 end-stage renal disease and has been doing well with it continue to decline over ROM the last 12 hours. 2 calling EMS with found to have significant hypoxia with the worsening congestion and cough pro ductive dark phlegm along with significant weight gain and fluid retention. Ended up coming via EMS to demurs department at [facility] where was seen and evaluated his influenza A was positive ration found to be in quite bed fluid overload with pro-BNP was 85,000 patient chest x-ray showed sign of pneumonia as well he was started on Zosyn and Levaquin along with Tamiflu patient will be seen pulmonary and admitted to the hospital with above problem. 12/19: Patient is receiving CAPD managed by Dr. Wilkinson. The removed significant fluid last night. Chest x-ray was ordered this morning. The patient has been seen by pulmonary medicine for multifactorial dyspnea but doubt pneumonia but we'll plan to continue antibiotics. Cardiology is following for heart failure and fluid overload. They have decreased amiodarone to 200 mg daily and also recommend starting eliquis 5 mg twice daily. Acute coronary syndrome ruled out. Echocardiogram reveals EF 25-30% with LA severely dilated, mild mitral regurgitation, mild tricuspid regurgitation, borderline pulmonary hypertension. 12/20: Patient states he is feeling better today with decreased shortness of breath. He remains in influenza isolation. [place] removed moved from his previous hip surgery done yesterday. He is continued on CAPD managed by Dr. Wilkinson. He has been afebrile, blood pressure 93/55, heart rate in the 70s and 80s, pulse ox 99% on 3 L nasal cannula. The chest x-ray from yesterday reveals increasing interstitial infiltrates and edema compared to last exam. This could be worsening heart failure. 12/21: Patient had low blood pressure this morning and dialysis fluid has been adjusted by nephrology. Atenolol was held this morning. Patient has been eating very little and agrees that he is depressed. Remeron added at bedtime. CODE STATUS clarified for DO NOT RESUSCITATE. PT and OT are following the patient and he is total assist with early fatigue. He remains afebrile, heart rate running in the 80s, pulse ox 97% on 2 L. White count 13.8, hemoglobin 10.8. Sodium 132, potassium 4.4, chloride 90, CO2 27, BUN 77 creatinine 8.29. Blood sugars run between 107 and 165. Albumin is 2.6. Anticipate discharge back to [facility] on Monday. 12/22: Patient continues to have low blood pressure this morning. Patient has not had CAPD at this time due to the low blood pressure. Dr. Wilkinson has CAPD on hold until systolic is greater than 100. Patient's appetite continues to be poor. Affect continues to be depressed. Remeron was added. Patient remained afebrile, heart rate running in the 80s, pulse ox around 96-97% on 2 L. WAC 19.8, hemoglobin 11.3, sodium 132 potassium 4.6, chloride 90, BUN 77 creatinine 8.21. Lactic acid 1.8 12/23: Patient still has poor appetite complaining of sores in mouth. Upon examination thrush is present. Patient continues to be hypotensive blood pressure today 90/52 with a heart rate of 71. Affect continues to be depressed. Patient remains afebrile. Pulse ox 93% on room air. Blood sugar is running between 94 and 110. Family is at the bedside. 12/24: There was an A=Team : The patient over the weekend for acute bleeding with few episodes of bright red blood per rectum and altered mental status, temp greater than 100 and patient was subsequently transferred to the intensive care unit. He received a fluid bolus but has not been on vasopressors. Blood pressu re this morning is 97/58, temperature 99.3, pulse ox 97% on 3 L nasal cannula, heart rate running in the 60s and 70s. White count is 11.3, hemoglobin 9.5. Sodium is improved to 133, potassium 3.5, chloride 93, CO2 27. BUN 75 and creatinine 7.15. Peritoneal fluid Gram stain hasn't finalized with no growth. Blood culture showing no growth and group A strep culture is finalized with no growth. Triple lumen was placed by Dr. Willis yesterday. Chest x-ray this morning reveals congestive heart failure. Right central line within the right atrium or within the proximal inferior vena cava. He is continued on CAPD. Patient remains very lethargic. He did have a bowel movement last night and this morning. 12/25: Patient remains lethargic, little oral intake, speech therapy has evaluated and recommended dysphagia diet with nectar thick liquids and aspiration precautions. Patient is also on tube feedings via [facility]. No significant change from yesterday. He continues on CAPD managed by Dr. Chun. Discussed with Dr. Chun and decision made to start hydrocortisone 100 mg every 8 hours for the next 2 days. Zosyn was discontinued by Dr. Willis as he completed course. He was given a fluid bolus of 500 ML's. Review of Systems CONSTITUTIONAL: No fever no chills. Reports generalized weakness, malaise EYES: No icterus sclerae, no conjunctivitis. EARS, NOSE, MOUTH, THROAT, and FACE: No sore throat, lymphadenopathy, carotid bruits or deformity. RESPIRATORY: Positive dyspnea and shortness of breath. CARDIOVASCULAR: Positive PND orthopnea palpitation. GASTROINTESTINAL: Abdominal distention and ascites from his CAPD. GENITOURINARY: Negative for Hematuria or UTI, no kidney stones. INTEGUMENT/BREAST: Possible right hip pain. HEMATOLOGIC/LYMPHATIC: Negative for bleed or purpura. MUSCULOSKELTAL: Negative for Myalgia or arthralgia. NEURLOGICAL: No LOC, Sz or syncope, blurred vision dizziness or abnormality. BEHAVIORAL/PSYCH: Reports depression reports lack of appetite. ENDOCRINE: Negative. Objective - Vital Signs Vital signs: Vital Signs Temp 98 F 12/25/18 12:00 Pulse 72 12/25/18 08:51 Resp 20 12/25/18 08:51 BP 87/62 12/25/18 07:00 Pulse Ox 96 12/25/18 07:00 Intake & Output 12/24/18 12/25/18 12/25/18 18:59 06:59 18:59 Intake Total 60 490 635 Output Total 100 0 0 Balance -40 490 635 Weight 58.4 kg 58.4 kg Intake: IV 60 360 75 .9 60 60 75 Levofloxacin 500Mg-D5w 100 Pmx 500 mg In Dextrose/ Water 1 100ml.bag @ 100 mls/hr IVPB Q48H [facility] Rx#: [id number] Piperacillin-Tazobactam 3 200 .375 gm In Sodium Chloride 0.9% 100 ml @ 25 mls/hr IVPB Q12H [facility] Rx# :[id number] Intake, IV Titration 500 Amount Sodium Chloride 0.9% 500 500 ml 500 ml @ 999 mls/hr IV .Q31M [facility] Rx#:[id number] Tube Feeding 130 60 Output: Urine 0 0 0 Other 100 Other: Voiding Method CAPD CAPD CAPD - Exam General Appearance: Alert, thin, cooperative, he seems older than his age. No respiratory distress noted. Neck HEENT: Supple, no lymphadenopathy, no thyroid enlargement, no carotid bruits. Lungs: Decreased breath some bilateral fine rhonchi positive mild crackles in the bases specially the right side with mild inspiratory expiratory wheezes as well. Chest Wall: Chest wall normal expansion with deep inspiration no tenderness and no deformity was found on exam, no costochondral pain or discomfort. Heart: Irregular rhythm and rate S1,S2 +S3, +5 cm JVD. Back: Symmetric, no curvature, ROM normal, no CVA tenderness. Abdomen: Soft, positive bowel sounds, CAPD fluid Extremities: Right side incision looks fine with slight edema around it trace edema on the lower side of his neck as well. Pulses: 2+ and symmetric. Skin: Skin color, texture, tugor normal, no rashes or lesions. Neurologic: Lethargic, oriented 2, no focal neuro deficit. - Labs CBC & Chem 7: 12/25/18 05:20 12/25/18 05:20 Labs: Abnormal Lab Results - Last 24 Hours (Table) 12/24/18 12/25/18 12/25/18 Range/Units 16:54 05:20 05:20 RBC 3.61 L (4.30-5.90) m/uL Hgb 10.2 L (13.0-17.5) gm/dL Hct 32.5 L (39.0-53.0) % RDW 18.9 H (11.5-15.5) % Neutrophils # 8.6 H (1.3-7.7) k/uL Lymphocytes # 0.8 L (1.0-4.8) k/uL Sodium 135 L (137-145) mmol/L Chloride 93 L (98-107) mmol/L BUN 67 H (9-20) mg/dL Creatinine 7.07 H* (0.66-1.25) mg/dL Glucose 120 H (74-99) mg/dL POC Glucose (mg/dL) 111 H (75-99) mg/dL Calcium 8.2 L (8.4-10.2) mg/dL 12/25/18 Range/Units 06:47 RBC (4.30-5.90) m/uL Hgb (13.0-17.5) gm/dL Hct (39.0-53.0) % RDW (11.5-15.5) % Neutrophils # (1.3-7.7) k/uL Lymphocytes # (1.0-4.8) k/uL Sodium (137-145) mmol/L Chloride (98-107) mmol/L BUN (9-20) mg/dL Creatinine (0.66-1.25) mg/dL Glucose (74-99) mg/dL POC Glucose (mg/dL) 116 H (75-99) mg/dL Calcium (8.4-10.2) mg/dL Assessment and Plan Plan: 1 acute hypoxic respiratory failure: Combination of possible pneumonia not ruled out, influenza A, and acute on chronic heart failure. Patient to continue CAPD, DuoNeb treatments, Levaquin, Zosyn. acute coronary syndrome ruled out by cardiology. 2 fluid overload: acute on chronic systolic heart failure with severe impaired left ventricular function patient has been on medical management with his chronic kidney disease this is a contributing factor this point. Continue CAPD we'll consult nephrology and if patient continued to decline might require hemodialysis in the meanwhile continue medical management. 3 COPD: Consult with pulmonary medicine appreciated. Continue nebulizer treat ments and oxygen. 4 influenza A: Tamiflu completed. 5 interstitial pneumonitis: Antibiotics completed 6 CHF exacerbation: Mostly systolic dysfunction with acute on a chronic heart failure continue diuretics continue current management. 7 elevated troponin: Cardiology consult appreciated. Acute coronary syndrome ruled out. 8 recent hip fracture: Post ORIF still in rehab at [facility]. [place] have been removed. 9 end-stage renal disease: On CAPD has been seen nephrology for long time we'll consult nephrology at this point. 10 A. fib with RVR, paroxysmal atrial fibrillation: Amiodarone adjusted by cardiology to 200 mg daily. Continue eliquis 5 mg twice daily. 11 type 2 diabetes: Continue NovoLog per sliding scales. 12 hyperlipidemia: On Lopid 6 in the milligrams daily. 13 chronic anemia: On multivitamins and iron also still on Aranesp on weekly basis. 14 severe GERD/GI prophylaxis: Patient remain on Protonix 40 mg daily. 15 chronic pain syndrome: On pain management patient is on a on tramadol 50 mg 4 times a day as needed. 16. Recurrent depression with loss of appetite. Remeron added at bedtime, continue Zoloft. 17. Acute lower GI bleeding most likely hemorrhoidal bleed. 18. Oropharyngeal candidiasis 19. Metabolic encephalopathy possibly related to uremia 20. Severe protein calorie malnutrition started on tube feedings through [facility]. Speech therapy is recommended dysphagia diet with nectar thick liquids and aspiration precautions as well. 21. Possible adrenal insufficiency. Hydrocortisone 100 mg IV every 8 hours started. CODE STATUs: NO CODE PER PATIENT WISHES. Discharge plan: Return to [facility] Impression and plan of care have been directed as dictated by the signing physician. Margot Dorado nurse practitioner acting as scribe for signing physician.
[2018-12-25 17:17] LABS: Glucose,Whole Blood 128 mg/dL (75-99)
[2018-12-25] MEDS: GENTAMICIN 0.1% CREAM 15 GM TUBE TOPICAL SCH (19:03)
[2018-12-25 20:19] LABS: Glucose,Whole Blood 183 mg/dL (75-99)
[2018-12-26] MEDS: Acetaminophen-Codeine 300-30mg TAB PO PRN ×2 (00:24→20:53)
[2018-12-26] MEDS: DIALYSIS (PERIT 1.5%) 2,500 ML 37.5 G/2,500 ML BAG INTRAPERIT SCH ×5 (00:25→20:40)
[2018-12-26] MEDS: CLOTRIMAZOLE TROCHE 10 MG TROCHE MUCOUS MEM SCH ×5 (00:35→21:07)
[2018-12-26 04:51] LABS: Anisocytosis Slight; Basophils % (A) 0 %; Eosinophils # (A) 0.1 k/uL (0-0.7); Eosinophils % (A) 2 %; HCT 29.8 % (39.0-53.0); HGB 9.4 gm/dL (13.0-17.5); Hypochromasia Moderate; Lymphocytes # (A) 0.5 k/uL (1.0-4.8); Lymphocytes % (A) 9 %; MCH 28.5 pg (25.0-35.0); MCHC 31.4 g/dL (31.0-37.0); MCV 90.6 fL (80.0-100.0); Mean Platelet Volume 7.4; Monocytes # (A) 0.1 k/uL (0-1.0); Monocytes % (A) 2 %; Neutrophils # (A) 4.6 k/uL (1.3-7.7); Neutrophils % (A) 86 %; Platelet Count 205 k/uL (150-450); Poikilocytosis Slight; RBC 3.29 m/uL (4.30-5.90); RDW 18.5 % (11.5-15.5); WBC 5.3 k/uL (3.8-10.6)
[2018-12-26 05:14] LABS: Calcium 7.9 mg/dL (8.4-10.2); Potassium 3.7 mmol/L (3.5-5.1)
[2018-12-26] MEDS ORDERED: POTASSIUM CHLORIDE ER 20 MEQ TAB.ER PO SCH (06:00)
[2018-12-26] MEDS: HYDROCORTISONE SUCCINATE 100 MG/2 ML VIAL IV SCH ×2 (06:02→15:19)
[2018-12-26] MEDS: SODIUM CHLORIDE 0.9% 1,000 ML IV SCH (06:03)
[2018-12-26 07:04] LABS: Glucose,Whole Blood 199 mg/dL (75-99)
--- NOTE | 2018-12-26 07:40 | XR ---
EXAMINATION TYPE: XR chest 1V DATE OF EXAM: 12/26/2018 COMPARISON: 12/25/2018 HISTORY: Tube placement FINDINGS: There are bilateral pleural effusions with cardiomegaly and bibasilar infiltrate. There is a diffuse interstitial pattern. Feeding tube is seen extending in the abdomen. Right-sided central line stable . Tip overlies the right atrium. Atherosclerotic change aorta. IMPRESSION: 1. Bilateral consolidation and pleural effusion correlate for pneumonia versus CHF.
[2018-12-26] MEDS: ATENOLOL 12.5 MG TAB PO SCH (08:56)
[2018-12-26] MEDS: PANTOPRAZOLE 40 MG TABLET PO SCH (08:56)
[2018-12-26] MEDS: FENOFIBRATE 160 MG TAB PO SCH (08:56)
[2018-12-26] MEDS: AMIODARONE 200 MG TAB PO SCH (08:56)
[2018-12-26] MEDS: FLUCONAZOLE 100 MG TAB PO SCH (08:56)
[2018-12-26] MEDS: MIDODRINE 5 MG TAB PO SCH (08:56)
[2018-12-26] MEDS: ATORVASTATIN 40 MG TAB PO SCH (08:56)
[2018-12-26] MEDS: CALCIUM CARB-MAG CARB-FOLIC 1 EACH TAB PO SCH ×3 (08:56→17:31)
[2018-12-26] MEDS: SERTRALINE 25 MG TAB PO SCH (08:56)
[2018-12-26] MEDS: ENOXAPARIN 30 MG/0.3 ML SYRINGE SQ SCH (08:56)
[2018-12-26] MEDS: VELPHORO 500 MG PO SCH (08:58)
[2018-12-26] MEDS: LIDOCAINE 5% PATCH TOPICAL SCH (08:59)
[2018-12-26] MEDS: SEVELAMER 800 MG TAB PO SCH ×2 (09:00→21:01)
[2018-12-26] MEDS: GENTAMICIN 0.1% CREAM 15 GM TUBE TOPICAL SCH (09:00)
[2018-12-26 09:33] LABS: Glucose,Whole Blood 197 mg/dL (75-99)
[2018-12-26] MEDS: INSULIN ASPART (NovoLOG) 100 UNIT/ML VIAL SQ SCH ×4 (09:33→21:05)
--- NOTE | 2018-12-26 10:49 | P.PN ---
Subjective Patient is seen in follow-up for end-stage renal disease. He is maintained on peritoneal dialysis. He is receiving 5 exchanges daily with 1.5% solution. He is maintaining a net negative fluid balance. Creatinine is trending down. BUN trending down as well. He is currently being treated for influenza A virus. Remains quite lethargic but does nod his head to answer questions. He does have history of systolic CHF with ejection fraction of 25-30%. Receiving tube feeding. Vital signs are stable. General: The patient appeared well nourished and normally developed. HEENT: Head exam is unremarkable. Neck is without jugular venous distension. LUNGS: Lungs are clear to auscultation and percussion. Breath sounds decreased. HEART: Rate and Rhythm are regular. First and second heart sounds normal. No murmurs, rubs or gallops. ABDOMEN: Abdominal exam reveals normal bowel sounds. Non-tender and non- distended. No evidence of peritonitis. EXTREMITITES: No clubbing, cyanosis, or edema. Objective - Vital Signs Vital signs: Vital Signs Temp 97.3 F L 12/26/18 06:26 Pulse 70 12/26/18 10:00 Resp 19 12/26/18 10:00 BP 151/81 12/26/18 10:00 Pulse Ox 98 12/26/18 10:00 Intake & Output 12/25/18 12/26/18 12/26/18 18:59 06:59 18:59 Intake Total 950 510 260 Output Total 0 0 0 Balance 950 510 260 Intake: IV 100 60 20 .9 100 60 20 Intake, IV Titration 700 Amount Potassium Chloride 20 meq 200 In Water For Injection 1 100ml.bag @ 50 mls/hr IVPB [facility] Rx#: [id number] Sodium Chloride 0.9% 500 500 ml 500 ml @ 999 mls/hr IV .Q31M [facility] Rx#:[id number] Tube Feeding 150 360 240 Other 90 Output: Urine 0 0 0 Other: Voiding Method CAPD CAPD # Voids 0 # Bowel Movements 1 - Labs CBC & Chem 7: 12/26/18 04:35 12/26/18 04:35 Labs: Abnormal Lab Results - Last 24 Hours (Table) 12/25/18 12/25/18 12/26/18 Range/Units 17:05 20:08 04:35 RBC 3.29 L (4.30-5.90) m/uL Hgb 9.4 L (13.0-17.5) gm/dL Hct 29.8 L (39.0-53.0) % RDW 18.5 H (11.5-15.5) % Lymphocytes # 0.5 L (1.0-4.8) k/uL Sodium (137-145) mmol/L Chloride (98-107) mmol/L BUN (9-20) mg/dL Creatinine (0.66-1.25) mg/dL Glucose (74-99) mg/dL POC Glucose (mg/dL) 128 H 183 H (75-99) mg/dL Calcium (8.4-10.2) mg/dL 12/26/18 12/26/18 12/26/18 Range/Units 04:35 06:53 09:22 RBC (4.30-5.90) m/uL Hgb (13.0-17.5) gm/dL Hct (39.0-53.0) % RDW (11.5-15.5) % Lymphocytes # (1.0-4.8) k/uL Sodium 133 L (137-145) mmol/L Chloride 95 L (98-107) mmol/L BUN 65 H (9-20) mg/dL Creatinine 6.71 H (0.66-1.25) mg/dL Glucose 178 H (74-99) mg/dL POC Glucose (mg/dL) 199 H 197 H (75-99) mg/dL Calcium 7.9 L (8.4-10.2) mg/dL Assessment and Plan Plan: Assessment: 1. End-stage renal disease maintained on peritoneal dialysis. 2. Influenza A virus. 3. Systolic CHF ejection fraction of 25-30%. 4. Chronic hypotension related to underlying cardiac status maintained on midodrine. Cortisol and TSH level normal. Blood pressure much improved with IV steroids. 5. Chronic kidney disease mineral bone disease maintained on phosphate binders. 6. Anemia of chronic kidney disease maintained on Aranesp. Plan: Maintain current PD exchanges. Await urea nitrogen from the dialysate to assess for clearance. Due to patient's underlying hypotension and cardiac status, he will not be a good long-term candidate for hemodialysis. Maintain Midodrine. Blood pressure is improved with IV steroids. Recommend decreasing the dose of steroids to 50 mg every 8 hours and gradually taper over the next few days. If becomes hypotensive, he may benefit from oral Florinef. Replace potassium. 20 mEq today.
[2018-12-26] MEDS ORDERED: MIDODRINE 5 MG TAB PO PRN (11:42)
[2018-12-26 12:02] LABS: Glucose,Whole Blood 144 mg/dL (75-99)
[2018-12-26] MEDS ORDERED: MIDODRINE 5 MG TAB PO SCH (12:30)
[2018-12-26] MEDS: MULTIVITAMINS, THERA 1 EACH TAB PO SCH (12:41)
--- NOTE | 2018-12-26 13:03 | P.PN ---
Subjective Progress Note Date: 12/26/18 73-year-old male who is known from [facility] was hospitalized last week with hip fracture post-ORIF who had severe lethargy and change in mental status after surgery was transferred to [facility] where was seen by neurology and evaluated and found to have severe encephalopathy mostly medication related medication were adjusted patient started to feel much better still have no weight bearing on the hip area was transferred to [facility] for rehab. Patient is doing CAPD 4 end-stage renal disease and has been doing well with it continue to decline over ROM the last 12 hours. 2 calling EMS with found to have significant hypoxia with the worsening congestion and cough pro ductive dark phlegm along with significant weight gain and fluid retention. Ended up coming via EMS to demurs department at [facility] where was seen and evaluated his influenza A was positive ration found to be in quite bed fluid overload with pro-BNP was 85,000 patient chest x-ray showed sign of pneumonia as well he was started on Zosyn and Levaquin along with Tamiflu patient will be seen pulmonary and admitted to the hospital with above problem. 12/19: Patient is receiving CAPD managed by Dr. Wilkinson. The removed significant fluid last night. Chest x-ray was ordered this morning. The patient has been seen by pulmonary medicine for multifactorial dyspnea but doubt pneumonia but we'll plan to continue antibiotics. Cardiology is following for heart failure and fluid overload. They have decreased amiodarone to 200 mg daily and also recommend starting eliquis 5 mg twice daily. Acute coronary syndrome ruled out. Echocardiogram reveals EF 25-30% with LA severely dilated, mild mitral regurgitation, mild tricuspid regurgitation, borderline pulmonary hypertension. 12/20: Patient states he is feeling better today with decreased shortness of breath. He remains in influenza isolation. [place] removed moved from his previous hip surgery done yesterday. He is continued on CAPD managed by Dr. Wilkinson. He has been afebrile, blood pressure 93/55, heart rate in the 70s and 80s, pulse ox 99% on 3 L nasal cannula. The chest x-ray from yesterday reveals increasing interstitial infiltrates and edema compared to last exam. This could be worsening heart failure. 12/21: Patient had low blood pressure this morning and dialysis fluid has been adjusted by nephrology. Atenolol was held this morning. Patient has been eating very little and agrees that he is depressed. Remeron added at bedtime. CODE STATUS clarified for DO NOT RESUSCITATE. PT and OT are following the patient and he is total assist with early fatigue. He remains afebrile, heart rate running in the 80s, pulse ox 97% on 2 L. White count 13.8, hemoglobin 10.8. Sodium 132, potassium 4.4, chloride 90, CO2 27, BUN 77 creatinine 8.29. Blood sugars run between 107 and 165. Albumin is 2.6. Anticipate discharge back to [facility] on Monday. 12/22: Patient continues to have low blood pressure this morning. Patient has not had CAPD at this time due to the low blood pressure. Dr. Wilkinson has CAPD on hold until systolic is greater than 100. Patient's appetite continues to be poor. Affect continues to be depressed. Remeron was added. Patient remained afebrile, heart rate running in the 80s, pulse ox around 96-97% on 2 L. WAC 19.8, hemoglobin 11.3, sodium 132 potassium 4.6, chloride 90, BUN 77 creatinine 8.21. Lactic acid 1.8 12/23: Patient still has poor appetite complaining of sores in mouth. Upon examination thrush is present. Patient continues to be hypotensive blood pressure today 90/52 with a heart rate of 71. Affect continues to be depressed. Patient remains afebrile. Pulse ox 93% on room air. Blood sugar is running between 94 and 110. Family is at the bedside. 12/24: There was an A=Team : The patient over the weekend for acute bleeding with few episodes of bright red blood per rectum and altered mental status, temp greater than 100 and patient was subsequently transferred to the intensive care unit. He received a fluid bolus but has not been on vasopressors. Blood pressu re this morning is 97/58, temperature 99.3, pulse ox 97% on 3 L nasal cannula, heart rate running in the 60s and 70s. White count is 11.3, hemoglobin 9.5. Sodium is improved to 133, potassium 3.5, chloride 93, CO2 27. BUN 75 and creatinine 7.15. Peritoneal fluid Gram stain hasn't finalized with no growth. Blood culture showing no growth and group A strep culture is finalized with no growth. Triple lumen was placed by Dr. Willis yesterday. Chest x-ray this morning reveals congestive heart failure. Right central line within the right atrium or within the proximal inferior vena cava. He is continued on CAPD. Patient remains very lethargic. He did have a bowel movement last night and this morning. 12/25: Patient remains lethargic, little oral intake, speech therapy has evaluated and recommended dysphagia diet with nectar thick liquids and aspiration precautions. Patient is also on tube feedings via [facility]. No significant change from yesterday. He continues on CAPD managed by Dr. Chun. Discussed with Dr. Chun and decision made to start hydrocortisone 100 mg every 8 hours for the next 2 days. Zosyn was discontinued by Dr. Willis as he completed course. He was given a fluid bolus of 500 ML's. 12/26: Patient remains in the intensive care unit. He is on tube feedings but apparently did not get any oral feeding last night. He seems to be improving with Solu-Cortef and this will be decreased to 50 mg IV every 8 hours. We will change managing that was ordered by pulmonary medicine to when necessary for blood pressure. He has been afebrile, blood pressure 133/77, pulse 79, pulse ox 97% on 3 L nasal cannula. White count is normal at 5.3, hemoglobin 9.4, BUN 65 creatinine 6.71. Capillary blood glucose running between 144-199. Levemir will be added daily. He is also on NovoLog scale. Review of Systems CONSTITUTIONAL: No fever no chills. Reports generalized weakness, reports malaise EYES: No icterus sclerae, no conjunctivitis. EARS, NOSE, MOUTH, THROAT, and FACE: No sore throat, lymphadenopathy, carotid bruits or deformity. RESPIRATORY: Positive dyspnea and shortness of breath. CARDIOVASCULAR: Positive PND orthopnea palpitation. GASTROINTESTINAL: Abdominal distention and ascites from his CAPD. GENITOURINARY: Negative for Hematuria or UTI, no kidney stones. INTEGUMENT/BREAST: Possible right hip pain. HEMATOLOGIC/LYMPHATIC: Negative for bleed or purpura. MUSCULOSKELTAL: Negative for Myalgia or arthralgia. NEURLOGICAL: No LOC, Sz or syncope, blurred vision dizziness or abnormality. BEHAVIORAL/PSYCH: Reports depression reports lack of appetite. ENDOCRINE: Negative. Objective - Vital Signs Vital signs: Vital Signs Temp 97.3 F L 12/26/18 06:26 Pulse 66 12/26/18 07:00 Resp 12 12/26/18 07:00 BP 151/86 12/26/18 07:00 Pulse Ox 95 12/26/18 07:00 Intake & Output 12/25/18 12/26/18 12/26/18 18:59 06:59 18:59 Intake Total 950 510 45 Output Total 0 0 Balance 950 510 45 Intake: IV 100 60 5 .9 100 60 5 Intake, IV Titration 700 Amount Potassium Chloride 20 meq 200 In Water For Injection 1 100ml.bag @ 50 mls/hr IVPB ONCE STA Rx#: [id number] Sodium Chloride 0.9% 500 500 ml 500 ml @ 999 mls/hr IV .Q31M ONE Rx#:[id number] Tube Feeding 150 360 40 Other 90 Output: Urine 0 0 Other: Voiding Method CAPD CAPD # Bowel Movements 1 - Exam General Appearance: Alert, thin, cooperative, he seems older than his age. No respiratory distress noted. Tube feeding in place Neck HEENT: Supple, no lymphadenopathy, no thyroid enlargement, no carotid bruits. Lungs: Decreased breath some bilateral fine rhonchi positive mild crackles in the bases specially the right side with mild inspiratory expiratory wheezes as well. Chest Wall: Chest wall normal expansion with deep inspiration no tenderness and no deformity was found on exam, no costochondral pain or discomfort. Heart: Irregular rhythm and rate S1,S2 +S3, +5 cm JVD. Back: Symmetric, no curvature, ROM normal, no CVA tenderness. Abdomen: Soft, positive bowel sounds, CAPD fluid Extremities: Right side incision looks fine with slight edema around it trace edema on the lower side of his neck as well. Pulses: 2+ and symmetric. Skin: Skin color, texture, tugor normal, no rashes or lesions. Neurologic: Lethargic, oriented 2, no focal neuro deficit. - Labs CBC & Chem 7: 12/26/18 04:35 12/26/18 04:35 Labs: Abnormal Lab Results - Last 24 Hours (Table) 12/25/18 12/25/18 12/26/18 Range/Units 17:05 20:08 04:35 RBC 3.29 L (4.30-5.90) m/uL Hgb 9.4 L (13.0-17.5) gm/dL Hct 29.8 L (39.0-53.0) % RDW 18.5 H (11.5-15.5) % Lymphocytes # 0.5 L (1.0-4.8) k/uL Sodium (137-145) mmol/L Chloride (98-107) mmol/L BUN (9-20) mg/dL Creatinine (0.66-1.25) mg/dL Glucose (74-99) mg/dL POC Glucose (mg/dL) 128 H 183 H (75-99) mg/dL Calcium (8.4-10.2) mg/dL 12/26/18 12/26/18 12/26/18 Range/Units 04:35 06:53 09:22 RBC (4.30-5.90) m/uL Hgb (13.0-17.5) gm/dL Hct (39.0-53.0) % RDW (11.5-15.5) % Lymphocytes # (1.0-4.8) k/uL Sodium 133 L (137-145) mmol/L Chloride 95 L (98-107) mmol/L BUN 65 H (9-20) mg/dL Creatinine 6.71 H (0.66-1.25) mg/dL Glucose 178 H (74-99) mg/dL POC Glucose (mg/dL) 199 H 197 H (75-99) mg/dL Calcium 7.9 L (8.4-10.2) mg/dL Assessment and Plan Plan: 1 acute hypoxic respiratory failure: Combination of possible pneumonia not ruled out, influenza A, and acute on chronic heart failure. Patient to continue CAPD, DuoNeb treatments, Levaquin, Zosyn. acute coronary syndrome ruled out by cardiology. 2 fluid overload: acute on chronic systolic heart failure with severe impaired left ventricular function patient has been on medical management with his chronic kidney disease this is a contributing factor this point. Continue CAPD we'll consult nephrology and if patient continued to decline might require hemodialysis in the meanwhile continue medical management. 3 COPD: Consult with pulmonary medicine appreciated. Continue nebulizer treatments and oxygen. 4 influenza A: Tamiflu completed. 5 interstitial pneumonitis: Antibiotics completed 6 CHF exacerbation: Mostly systolic dysfunction with acute on a chronic heart failure continue diuretics continue current management. 7 elevated troponin: Cardiology consult appreciated. Acute coronary syndrome ruled out. 8 recent hip fracture: Post ORIF still in rehab at [facility]. [facility] have been removed. 9 end-stage renal disease: On CAPD has been seen nephrology for long time we'll consult nephrology at this point. 10 A. fib with RVR, paroxysmal atrial fibrillation: Amiodarone adjusted by cardiology to 200 mg daily. Continue eliquis 5 mg twice daily. 11 type 2 diabetes: Continue NovoLog per sliding scales. 12 hyperlipidemia: On Lopid 6 in the milligrams daily. 13 chronic anemia: On multivitamins and iron also still on Aranesp on weekly basis. 14 severe GERD/GI prophylaxis: Patient remain on Protonix 40 mg daily. 15 chronic pain syndrome: On pain management patient is on a on tramadol 50 mg 4 times a day as needed. 16. Recurrent depression with loss of appetite. Remeron added at bedtime, continue Zoloft. 17. Acute lower GI bleeding most likely hemorrhoidal bleed. 18. Oropharyngeal candidiasis 19. Metabolic encephalopathy possibly related to uremia 20. Severe protein calorie malnutrition started on tube feedings through [facility]. Speech therapy is recommended dysphagia diet with nectar thick liquids and aspiration precautions as well. 21. Adrenal insufficiency. Hydrocortisone decreased to 50 mg IV every 8 hours started. CODE STATUs: NO CODE PER PATIENT WISHES. Discharge plan: Return to [facility] once stabilized Impression and plan of care have been directed as dictated by the signing physician. Margot Dorado nurse practitioner acting as scribe for signing physician.
[2018-12-26] MEDS: INSULIN DETEMIR (LEVEMIR) 100 UNIT/ML SYR SQ SCH (15:26)
--- NOTE | 2018-12-26 16:31 | P.PN ---
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 The patient came in with increased shortness of breath cough chest congestion wheezing and hypoxemia. Apparently his brother was also sick. The patient was diagnosed having an influenza A tracheobronchitis. He was started on Tamiflu. He was given 1 dose. He was also placed on oxygen therapy and currently is on 3 L of oxygen nasal cannula. He hasn't defervesced and he doesn't have any temperature for the time being. He is undergoing peritoneal dialysis 3 exchanges a day and the dialysate is being altered and modified by nephrology. The patient is producing adequate amount of output during this exchanges. No chest pain. As mentioned he has ischemic cardiomyopathy with an echocardiogram showing impaired LV function of around 20%. No significant signs of fluid overload. No leg edema. The chest x-ray showed cardiomegaly with some mild four-vessel congestion. Still lethargic and weak although improved compared to yesterday. No other significant events overnight. On today's evaluation of 12/20/2018, the patient remains quite lethargic. He is awake and alert and is following commands and answer questions appropriately. He looks very weak and tired and fatigued. No signs of any acute respiratory distress. The patient is still being treated conservatively for an underlying influenza A tracheobronchitis. No significant cough or sputum production. He remains on DuoNeb nebulized treatments around the clock.. . Fluids also was sent from the abdominal cavity and peritoneal cavity and there is also still negative for now. Blood cultures still negative for now. Patient is continuing his peritoneal dialysis under the supervision of nephrology. He is afebrile. He is hemodynamically stable. Pulse oxing 99% oxygen by nasal cannula. The patient did not have a follow-up chest x-ray from today. He remains in droplet isolation. No nausea. No vomiting. No emesis. No other significant events otherwise for now On 12/21/2018 patient seen in follow-up on [facility]. he is somnolent, but easily arousable to stimuli, appears to be fatigued, denies any acute complaints, denies any shortness of breath, denies any chest pain, sounds are positive for a few scattered rhonchi, no wheezing. Pulse ox on 2 L per nasal cannula was 96%, patient is afebrile, did receive 1 dose of oral Tamiflu for influenza A infection, continues on IV Zosyn and Levaquin. Group A strep throat culture was negative, blood cultures and peritoneal fluid cultures are negative thus far. She is slightly hypotensive, with a blood pressure 85/49 with a mean of 61. Nephrology is following, patient is getting peritoneal dialysis exchanges. On 12/22/2018, and seeing this patient for a follow-up. Note that the patient had few episodes of bright red blood per rectum on the medical floor and the patient became hypotensive. For that reason the patient got transferred to the intensive care unit. I gave him a 500 mL of normal saline bolus. He did not require any pressors. Upon further questioning, the family members tell me that the patient had a colonoscopy that was done and [facility] and apparently the colonoscopy was negative and the patient had some hemorrhoids problems. In any rate, the hemoglobin did not drop. The patient is not bleeding and he had brown bowel moments subsequently. However, and that concerned of his underlying mentation. The patient looks encephalopathic. There is a component of metabolic encephalopathy. He would arouse and he was follow simple commands. If left unstimulated, he would go to sleep. He is not having any focal neurological deficits. No seizure activity. A CAT scan of the head that was done during his last admission showed chronic white matter changes without any acute abnormalities. Apparently, post his hip surgery the patient was also slow to recover and remained sleepy and fatigued and lethargic for an extended period of time. He is still undergoing his peritoneal dialysis. He was treated for an influenza a pulmonary infection. His cough is congested. No significant sputum production. His chest x-ray shows interstitial pattern consistent with CHF. He is eating although in my opinion is not reaching his caloric requirements. Today's evaluation of 12/23/2018, the patient remains essentially the same as yesterday. His lethargic. Sleepy. Arousable him a not much conversing. He is resting in bed comfortably. I still insisted the patient has a component of metabolic encephalopathy. I discussed this with the automatic silk screen printer and will going to change his PD regimen. He is doing 4 exchanges a day. Chest x-ray shows some mild pulmonary vascular congestion. No S4 distress. No cough or sputum production. His sodium is at 127. No signs of any significant fluid overload. Serum bicarb is 21 and there is no significant acidosis. His oral intake is diminished. We noticed that the patient has extensive oropharyngeal thrush and for that reason the patient will be be started on Diflucan orally. I am still raising the concern for uremia knowing that the patient is quite lethargic and somnolent for now. Blood pressures also fluctuating. Earlier during my evaluation he was noted to have a systolic blood pressure in the 70s. He was started on midodrine. He'll be given a 250 mL of normal saline bolus also. On 12/24/2018 I'm seeing this patient for a follow-up. He is neurologic status is still the same. I will say he is very much lethargic and somnolent and probably encephalopathic. He is arousable. He follows simple commands. He is weak. He is unable to swallow a lot of the food material with pulling in the back of his throat. He was found to have oropharyngeal candidiasis and the patient was started on Diflucan. He is undergoing peritoneal dialysis. No fever or chills. I inserted a triple lumen catheter on him. I give him a bolus of IV fluids. His blood pressures under better control for now. He is on no pressors. He is afebrile. Pulse ox is 97% on 3 L of oxygen by nasal cannula. Tach on is 11.3. His creatinine is at 7.15. Sodium level is improved is up to 133 with a potassium level of 3.5. No other significant events otherwise for now. Denies having any headaches. He is moving all 4 extremities. No seizure activity has been noted. No signs of any fluid overload. The chest x-ray post-line insertion showed some CHF and the line was inserted. Being within the right atrium. On today's evaluation of 12/25/2018, and seeing this patient for a follow-up. Slightly more awake and interactive compared to yesterday. Note that I found that the patient's swallow mechanism was poor. He also was not meeting his caloric requirements. Based on that, I inserted a Doppler of tube yesterday and he was started on enteral feeding for nutritional support. He is currently on 10 mL of Nepro. He is doing well and is tolerating his diet. No abdominal distention. He was slightly hypotensive earlier this morning. His CVP was low at 3. The patient will be given a bolus of 500 mL of normal saline. He continues to undergo his PD exchanges. He has completed his course of Zosyn. He is also on Levaquin. He was allegedly admitted for an acute influenza pulmonary infection/bronchitis. No abdominal distention. No focal neurological deficits. Despite his lethargy and sleepiness, the patient arouses without any major difficulties. He is oropharyngeal status has been adequately treated with Diflucan. The patient has no other specific complaints. On today's evaluation of 12/26/2018, I'm seeing this patient for a follow-up. The patient has been receiving enteral feeding for nutritional support via Dobbhoff. He is doing well. He is more awake and interactive. No fever. No chills. His blood pressures improved significantly and I do not see the need for IV hydrocortisone and this will be discontinued. I would also discontinue the midodrine. The patient will have his Dobbhoff removed today. He is undergoing his dialysis exchanges on a daily basis. Minimal congested copy no sputum production. His oropharyngeal thrush has improved. No focal neurological deficit. He was able to get up on a chair and eat 25% of his meal. Objective - Vital Signs Vital signs: Vital Signs Temp 97.4 F L 12/26/18 12:31 Pulse 79 12/26/18 15:00 Resp 19 12/26/18 15:00 BP 102/67 12/26/18 15:00 Pulse Ox 97 12/26/18 15:00 Intake & Output 12/25/18 12/26/18 12/26/18 18:59 06:59 18:59 Intake Total 950 510 285 Output Total 0 0 0 Balance 950 510 285 Intake: IV 100 60 45 0.9% Normal Saline 100 60 45 Intake, IV Titration 700 Amount Potassium Chloride 20 meq 200 In Water For Injection 1 100ml.bag @ 50 mls/hr IVPB ONCE STA Rx#: [id number] Sodium Chloride 0.9% 500 500 ml 500 ml @ 999 mls/hr IV .Q31M ONE Rx#:[id number] Tube Feeding 150 360 240 Other 90 Output: Urine 0 0 0 Other: Voiding Method CAPD CAPD # Voids 0 # Bowel Movements 1 - Exam General Appearance: Alert, cooperative, he seems older than his age. The patient is on oxygen at 3 L per minute nasal cannula, the patient has a Dobbhoff is removed Neck HEENT: Supple, no lymphadenopathy, no thyroid enlargement, no carotid bruits. The patient has a right IJ triple-lumen catheter in place. Lungs: Decreased breath some bilateral fine rhonchi positive mild crackles in the bases specially the right side with mild inspiratory expiratory wheezes as well. Chest Wall: Chest wall normal expansion with deep inspiration no tenderness and no deformity was found on exam, no costochondral pain or discomfort. Heart: Irregular rhythm and rate S1,S2 +S3, +2 cm JVD. Back: Symmetric, no curvature, ROM normal, no CVA tenderness. Abdomen: Soft positive bowel sound patient had quite Ascites from his CAPD fluid with mild discomfort in the right upper quadrant area.The patient has a PD catheter and a PD site is clean and dry and intact. No direct tenderness or rebound tensile guarding at this point in time. Extremities: Right side incision looks fine with slight edema around it trace edema on the lower side of his neck as well. Pulses: 1+ and symmetric. Skin: Skin color, texture, tugor normal, no rashes or lesions. Neurologic: Lethargic, sleepy, arousable, follows simple commands and responds to questions appropriately. No focal neurological deficits. Overall, the patient seems to be much more alert compared to yesterday. - Labs CBC & Chem 7: 12/26/18 04:35 12/26/18 04:35 Labs: Abnormal Lab Results - Last 24 Hours (Table) 12/25/18 12/25/18 12/26/18 Range/Units 17:05 20:08 04:35 RBC 3.29 L (4.30-5.90) m/uL Hgb 9.4 L (13.0-17.5) gm/dL Hct 29.8 L (39.0-53.0) % RDW 18.5 H (11.5-15.5) % Lymphocytes # 0.5 L (1.0-4.8) k/uL Sodium (137-145) mmol/L Chloride (98-107) mmol/L BUN (9-20) mg/dL Creatinine (0.66-1.25) mg/dL Glucose (74-99) mg/dL POC Glucose (mg/dL) 128 H 183 H (75-99) mg/dL Calcium (8.4-10.2) mg/dL 12/26/18 12/26/18 12/26/18 Range/Units 04:35 06:53 09:22 RBC (4.30-5.90) m/uL Hgb (13.0-17.5) gm/dL Hct (39.0-53.0) % RDW (11.5-15.5) % Lymphocytes # (1.0-4.8) k/uL Sodium 133 L (137-145) mmol/L Chloride 95 L (98-107) mmol/L BUN 65 H (9-20) mg/dL Creatinine 6.71 H (0.66-1.25) mg/dL Glucose 178 H (74-99) mg/dL POC Glucose (mg/dL) 199 H 197 H (75-99) mg/dL Calcium 7.9 L (8.4-10.2) mg/dL 12/26/18 Range/Units 11:50 RBC (4.30-5.90) m/uL Hgb (13.0-17.5) gm/dL Hct (39.0-53.0) % RDW (11.5-15.5) % Lymphocytes # (1.0-4.8) k/uL Sodium (137-145) mmol/L Chloride (98-107) mmol/L BUN (9-20) mg/dL Creatinine (0.66-1.25) mg/dL Glucose (74-99) mg/dL POC Glucose (mg/dL) 144 H (75-99) mg/dL Calcium (8.4-10.2) mg/dL Assessment and Plan Plan: Assessment 1 acute hypoxic respiratory failure secondary to an acute influenza pulmonary infection/bronchitis. Pneumonia is doubtful, and the chest x-ray findings are stable for now. The patient is currently off liters of oxygen nasal cannula per no signs of any significant rest or distress. 2 acute CHF exacerbation. The patient has systolic dysfunction with an ejection fraction of around 25% based on the most recent echocardiogram, and there is an interval drop in his echocardiogram with an ejection fraction back in 2018 being in the 40% range. Consider an ischemic cardiomyopathy. Patient did have a troponin leak at time of admission. 3 end-stage renal disease on peritoneal dialysis, the patient continues to undergo his PD exchanges. We are awaiting the urea nitrogen from the dialysate to assess for the clearance. 4 hypotension, loss likely cardiac in nature in addition to the fact that the patient is having peritoneal dialysis. The patient's serum cortisol is at 44. He TSH is at 0.49. 5 recent ORIF for right hip fracture 6 chronic atrial fibrillation maintained on amiodarone and oral Eliquis 7 diabetes mellitus type 2 8 hyperlipidemia 9 chronic anemia 10 diminished level of consciousness most likely consistent with metabolic encephalopathy. Rule out uremic encephalopathy. 11 brief hypotension recovered with IV fluids 12 lower GI bleed, most likely hemorrhoidal bleed. 13 debilitation and impaired performance and functional status secondary to above-mentioned comorbidities 14 oropharyngeal candidiasis, currently on Diflucan Plan Discontinue the midodrine. Discontinue the hydrocortisone. Transfer this patient to a medical floor to be under the care of the internal medicine. Doppler was discontinued. The patient is having increased oral intake. Continue hemodialysis per nephrology. Stable enough to be transferred out of the intensive care unit.
[2018-12-26 17:10] LABS: Glucose,Whole Blood 191 mg/dL (75-99)
[2018-12-26 21:15] LABS: Glucose,Whole Blood 116 mg/dL (75-99)
[2018-12-27] MEDS: HYDROCORTISONE SUCCINATE 100 MG/2 ML VIAL IV SCH ×3 (00:38→20:56)
[2018-12-27] MEDS: CLOTRIMAZOLE TROCHE 10 MG TROCHE MUCOUS MEM SCH ×5 (00:39→21:10)
[2018-12-27] MEDS: DIALYSIS (PERIT 1.5%) 2,500 ML 37.5 G/2,500 ML BAG INTRAPERIT SCH ×5 (00:39→21:06)
[2018-12-27 04:54] LABS: Anisocytosis Slight; Basophils % (A) 0 %; Eosinophils # (A) 0.1 k/uL (0-0.7); Eosinophils % (A) 1 %; HCT 31.7 % (39.0-53.0); HGB 9.7 gm/dL (13.0-17.5); Hypochromasia Moderate; Lymphocytes # (A) 0.5 k/uL (1.0-4.8); Lymphocytes % (A) 7 %; MCH 27.6 pg (25.0-35.0); MCHC 30.6 g/dL (31.0-37.0); Mean Platelet Volume 7.5; Monocytes # (A) 0.3 k/uL (0-1.0); Monocytes % (A) 4 %; Neutrophils # (A) 6.4 k/uL (1.3-7.7); Neutrophils % (A) 87 %; Platelet Count 233 k/uL (150-450); Poikilocytosis Slight; RBC 3.53 m/uL (4.30-5.90); RDW 18.6 % (11.5-15.5); WBC 7.4 k/uL (3.8-10.6)
[2018-12-27 05:20] LABS: Calcium 8.2 mg/dL (8.4-10.2); Potassium 3.4 mmol/L (3.5-5.1)
[2018-12-27] MEDS: LEVOFLOXACIN 500MG-D5W PMX 500 MG in DEXTROSE/WATER 1 100ML.BAG IVPB SCH (06:03)
--- NOTE | 2018-12-27 06:44 | XR ---
EXAMINATION TYPE: XR chest 1V DATE OF EXAM: 12/27/2018 CLINICAL HISTORY: Difficulty breathing and CHF progress study. TECHNIQUE: Single AP portable upright view of the chest is obtained. COMPARISON: Chest x-ray from one day earlier and older studies. FINDINGS: Low lung volumes redemonstrated. There is stable right internal jugular central venous cat heter terminating in right atrium. There is persistent cardiomegaly with atherosclerotic thoracic aor ta. There is background chronic parenchymal change with increasing central vascular congestion and in terstitial edema with Manda B lines extending to left lung periphery. No large pleural effusion or p neumothorax is seen bilaterally. Old lower left lateral rib fracture is noted. IMPRESSION: Redemonstration of CHF exacerbation as there is cardiomegaly with suspected small bilater al pleural effusions and interstitial edema as well as central vascular congestion all redemonstrated , some worsening of latter findings felt present since most recent chest x-ray. Correlate clinically.
[2018-12-27] MEDS ORDERED: POTASSIUM CHLORIDE ER 20 MEQ TAB.ER PO STA (08:57)
[2018-12-27] MEDS: CALCIUM CARB-MAG CARB-FOLIC 1 EACH TAB PO SCH ×3 (09:00→18:18)
[2018-12-27] MEDS: GENTAMICIN 0.1% CREAM 15 GM TUBE TOPICAL SCH (09:01)
[2018-12-27 09:06] LABS: Glucose,Whole Blood 133 mg/dL (75-99)
[2018-12-27] MEDS: ENOXAPARIN 30 MG/0.3 ML SYRINGE SQ SCH (09:14)
[2018-12-27] MEDS: INSULIN ASPART (NovoLOG) 100 UNIT/ML VIAL SQ SCH ×4 (09:14→21:19)
[2018-12-27] MEDS: SEVELAMER 800 MG TAB PO SCH ×2 (09:15→21:15)
[2018-12-27] MEDS: ATORVASTATIN 40 MG TAB PO SCH (09:16)
[2018-12-27] MEDS: PANTOPRAZOLE 40 MG TABLET PO SCH (09:16)
[2018-12-27] MEDS: AMIODARONE 200 MG TAB PO SCH (09:16)
[2018-12-27] MEDS: LIDOCAINE 5% PATCH TOPICAL SCH (09:17)
[2018-12-27] MEDS: FLUCONAZOLE 100 MG TAB PO SCH (09:18)
[2018-12-27] MEDS: SERTRALINE 25 MG TAB PO SCH (09:19)
[2018-12-27] MEDS: FENOFIBRATE 160 MG TAB PO SCH (09:19)
[2018-12-27] MEDS: ATENOLOL 12.5 MG TAB PO SCH (09:19)
[2018-12-27] MEDS: SODIUM CHLORIDE 0.9% 1,000 ML IV SCH (09:43)
[2018-12-27] MEDS: INSULIN DETEMIR (LEVEMIR) 100 UNIT/ML SYR SQ SCH (09:43)
--- NOTE | 2018-12-27 09:43 | P.PN ---
Subjective Patient is seen in follow-up for end-stage renal disease. He is maintained on peritoneal dialysis. He is receiving 5 exchanges daily with 1.5% solution. He is maintaining a net negative fluid balance. Creatinine is trending down. BUN trending down as well. He is currently being treated for influenza A virus. He is more awake and alert today. He completed his breakfast this morning. He does have history of systolic CHF with ejection fraction of 25-30%. Tube feeding has been discontinued. Vital signs are stable. General: The patient appeared well nourished and normally developed. HEENT: Head exam is unremarkable. Neck is without jugular venous distension. LUNGS: Lungs are clear to auscultation and percussion. Breath sounds decreased. HEART: Rate and Rhythm are regular. First and second heart sounds normal. No murmurs, rubs or gallops. ABDOMEN: Abdominal exam reveals normal bowel sounds. Non-tender and non- distended. No evidence of peritonitis. EXTREMITITES: No clubbing, cyanosis, or edema. Objective - Vital Signs Vital signs: Vital Signs Temp 97.9 F 12/27/18 06:00 Pulse 65 12/27/18 06:00 Resp 12 12/27/18 04:00 BP 125/67 12/27/18 04:00 Pulse Ox 98 12/27/18 06:00 Intake & Output 12/26/18 12/27/18 12/27/18 18:59 06:59 18:59 Intake Total 295 10 Output Total 0 0 Balance 295 10 Weight 56.8 kg Intake: IV 55 10 0.9% Normal Saline 55 10 Tube Feeding 240 0 Output: Urine 0 0 Other: Voiding Method CAPD CAPD # Voids 0 0 # Bowel Movements 1 - Labs CBC & Chem 7: 12/27/18 04:35 12/27/18 04:35 Labs: Abnormal Lab Results - Last 24 Hours (Table) 12/26/18 12/26/18 12/26/18 Range/Units 11:50 16:58 21:04 RBC (4.30-5.90) m/uL Hgb (13.0-17.5) gm/dL Hct (39.0-53.0) % MCHC (31.0-37.0) g/dL RDW (11.5-15.5) % Lymphocytes # (1.0-4.8) k/uL Sodium (137-145) mmol/L Potassium (3.5-5.1) mmol/L Chloride (98-107) mmol/L BUN (9-20) mg/dL Creatinine (0.66-1.25) mg/dL Glucose (74-99) mg/dL POC Glucose (mg/dL) 144 H 191 H 116 H (75-99) mg/dL Calcium (8.4-10.2) mg/dL 12/27/18 12/27/18 12/27/18 Range/Units 04:35 04:35 08:54 RBC 3.53 L (4.30-5.90) m/uL Hgb 9.7 L (13.0-17.5) gm/dL Hct 31.7 L (39.0-53.0) % MCHC 30.6 L (31.0-37.0) g/dL RDW 18.6 H (11.5-15.5) % Lymphocytes # 0.5 L (1.0-4.8) k/uL Sodium 132 L (137-145) mmol/L Potassium 3.4 L (3.5-5.1) mmol/L Chloride 94 L (98-107) mmol/L BUN 63 H (9-20) mg/dL Creatinine 6.26 H (0.66-1.25) mg/dL Glucose 119 H (74-99) mg/dL POC Glucose (mg/dL) 133 H (75-99) mg/dL Calcium 8.2 L (8.4-10.2) mg/dL Assessment and Plan Plan: Assessment: 1. End-stage renal disease maintained on peritoneal dialysis. 2. Influenza A virus. 3. Systolic CHF ejection fraction of 25-30%. 4. Chronic hypotension related to underlying cardiac status maintained on midodrine. Cortisol and TSH level normal. Blood pressure much improved with IV steroids. 5. Chronic kidney disease mineral bone disease maintained on phosphate binders. 6. Anemia of chronic kidney disease maintained on Aranesp. 7. Hyponatremia secondary to chronic kidney disease. Plan: Maintain current PD exchanges. Due to patient's underlying hypotension and cardiac status, he will not be a good long-term candidate for hemodialysis. Maintain Midodrine as needed. Blood pressure is improved with IV steroids. Recommend decreasing the dose of steroids to 50 mg every 12 hours and gradually taper over the next few days. If becomes hypotensive, he may benefit from oral Florinef. Replace potassium. 60 mEq today.
[2018-12-27] MEDS: VELPHORO 500 MG PO SCH (11:27)
[2018-12-27] MEDS: MULTIVITAMINS, THERA 1 EACH TAB PO SCH (12:14)
[2018-12-27 12:19] LABS: Glucose,Whole Blood 161 mg/dL (75-99)
[2018-12-27] MEDS: Acetaminophen-Codeine 300-30mg TAB PO PRN (13:49)
--- NOTE | 2018-12-27 15:04 | P.PN ---
Subjective Progress Note Date: 12/27/18 73-year-old male who is known from [facility] was hospitalized last week with hip fracture post-ORIF who had severe lethargy and change in mental status after surgery was transferred to [facility] where was seen by neurology and evaluated and found to have severe encephalopathy mostly medication related medication were adjusted patient started to feel much better still have no weight bearing on the hip area was transferred to [facility] for rehab. Patient is doing CAPD 4 end-stage renal disease and has been doing well with it continue to decline over ROM the last 12 hours. 2 calling EMS with found to have significant hypoxia with the worsening congestion and cough pro ductive dark phlegm along with significant weight gain and fluid retention. Ended up coming via EMS to demurs department at [facility] where was seen and evaluated his influenza A was positive ration found to be in quite bed fluid overload with pro-BNP was 85,000 patient chest x-ray showed sign of pneumonia as well he was started on Zosyn and Levaquin along with Tamiflu patient will be seen pulmonary and admitted to the hospital with above problem. 12/19: Patient is receiving CAPD managed by Dr. Wilkinson. The removed significant fluid last night. Chest x-ray was ordered this morning. The patient has been seen by pulmonary medicine for multifactorial dyspnea but doubt pneumonia but we'll plan to continue antibiotics. Cardiology is following for heart failure and fluid overload. They have decreased amiodarone to 200 mg daily and also recommend starting eliquis 5 mg twice daily. Acute coronary syndrome ruled out. Echocardiogram reveals EF 25-30% with LA severely dilated, mild mitral regurgitation, mild tricuspid regurgitation, borderline pulmonary hypertension. 12/20: Patient states he is feeling better today with decreased shortness of breath. He remains in influenza isolation. [place] removed moved from his previous hip surgery done yesterday. He is continued on CAPD managed by Dr. Wilkinson. He has been afebrile, blood pressure 93/55, heart rate in the 70s and 80s, pulse ox 99% on 3 L nasal cannula. The chest x-ray from yesterday reveals increasing interstitial infiltrates and edema compared to last exam. This could be worsening heart failure. 12/21: Patient had low blood pressure this morning and dialysis fluid has been adjusted by nephrology. Atenolol was held this morning. Patient has been eating very little and agrees that he is depressed. Remeron added at bedtime. CODE STATUS clarified for DO NOT RESUSCITATE. PT and OT are following the patient and he is total assist with early fatigue. He remains afebrile, heart rate running in the 80s, pulse ox 97% on 2 L. White count 13.8, hemoglobin 10.8. Sodium 132, potassium 4.4, chloride 90, CO2 27, BUN 77 creatinine 8.29. Blood sugars run between 107 and 165. Albumin is 2.6. Anticipate discharge back to [facility] on Monday. 12/22: Patient continues to have low blood pressure this morning. Patient has not had CAPD at this time due to the low blood pressure. Dr. Wilkinson has CAPD on hold until systolic is greater than 100. Patient's appetite continues to be poor. Affect continues to be depressed. Remeron was added. Patient remained afebrile, heart rate running in the 80s, pulse ox around 96-97% on 2 L. WAC 19.8, hemoglobin 11.3, sodium 132 potassium 4.6, chloride 90, BUN 77 creatinine 8.21. Lactic acid 1.8 12/23: Patient still has poor appetite complaining of sores in mouth. Upon examination thrush is present. Patient continues to be hypotensive blood pressure today 90/52 with a heart rate of 71. Affect continues to be depressed. Patient remains afebrile. Pulse ox 93% on room air. Blood sugar is running between 94 and 110. Family is at the bedside. 12/24: There was an A=Team : The patient over the weekend for acute bleeding with few episodes of bright red blood per rectum and altered mental status, temp greater than 100 and patient was subsequently transferred to the intensive care unit. He received a fluid bolus but has not been on vasopressors. Blood pressu re this morning is 97/58, temperature 99.3, pulse ox 97% on 3 L nasal cannula, heart rate running in the 60s and 70s. White count is 11.3, hemoglobin 9.5. Sodium is improved to 133, potassium 3.5, chloride 93, CO2 27. BUN 75 and creatinine 7.15. Peritoneal fluid Gram stain hasn't finalized with no growth. Blood culture showing no growth and group A strep culture is finalized with no growth. Triple lumen was placed by Dr. Willis yesterday. Chest x-ray this morning reveals congestive heart failure. Right central line within the right atrium or within the proximal inferior vena cava. He is continued on CAPD. Patient remains very lethargic. He did have a bowel movement last night and this morning. 12/25: Patient remains lethargic, little oral intake, speech therapy has evaluated and recommended dysphagia diet with nectar thick liquids and aspiration precautions. Patient is also on tube feedings via [facility]. No significant change from yesterday. He continues on CAPD managed by Dr. Chun. Discussed with Dr. Chun and decision made to start hydrocortisone 100 mg every 8 hours for the next 2 days. Zosyn was discontinued by Dr. Willis as he completed course. He was given a fluid bolus of 500 ML's. 12/26: Patient remains in the intensive care unit. He is on tube feedings but apparently did not get any oral feeding last night. He seems to be improving with Solu-Cortef and this will be decreased to 50 mg IV every 8 hours. We will change managing that was ordered by pulmonary medicine to when necessary for blood pressure. He has been afebrile, blood pressure 133/77, pulse 79, pulse ox 97% on 3 L nasal cannula. White count is normal at 5.3, hemoglobin 9.4, BUN 65 creatinine 6.71. Capillary blood glucose running between 144-199. Levemir will be added daily. He is also on NovoLog scale. 12/27: The patient remains in intensive care unit and waning for [facility] since yesterday. Patient is found sitting up in a recliner and appears to be comfortable. He is more interactive today. He ate is breakfast this morning. He has friends and family at the bedside. Repeat lab work shows a white count of 7.4, hemoglobin 9.7, platelet count 233. Sodium 132, potassium 3.4, chloride 94, CO2 26, BUN 63 and creatinine 6.26. Capillary blood glucose running between 116 and 161. Patient is plan for return to [facility] most likely this will occur on Monday. Review of Systems CONSTITUTIONAL: No fever no chills. Reports generalized weakness, reports malaise EYES: No icterus sclerae, no conjunctivitis. EARS, NOSE, MOUTH, THROAT, and FACE: No sore throat, lymphadenopathy, carotid bruits or deformity. RESPIRATORY: Positive dyspnea and shortness of breath. CARDIOVASCULAR: Positive PND orthopnea palpitation. GASTROINTESTINAL: Abdominal distention and ascites from his CAPD. GENITOURINARY: Negative for Hematuria or UTI, no kidney stones. INTEGUMENT/BREAST: Possible right hip pain. HEMATOLOGIC/LYMPHATIC: Negative for bleed or purpura. MUSCULOSKELTAL: Negative for Myalgia or arthralgia. NEURLOGICAL: No LOC, Sz or syncope, blurred vision dizziness or abnormality. BEHAVIORAL/PSYCH: Reports depression reports lack of appetite. ENDOCRINE: Negative. Objective - Vital Signs Vital signs: Vital Signs Temp 97.9 F 12/27/18 08:00 Pulse 75 12/27/18 10:00 Resp 15 12/27/18 10:00 BP 100/69 12/27/18 10:00 Pulse Ox 97 12/27/18 10:00 Intake & Output 12/26/18 12/27/18 12/27/18 18:59 06:59 18:59 Intake Total 295 10 Output Total 0 0 Balance 295 10 Weight 56.8 kg Intake: IV 55 10 0.9% Normal Saline 55 10 Tube Feeding 240 0 Output: Urine 0 0 Other: Voiding Method CAPD CAPD CAPD # Voids 0 0 # Bowel Movements 1 - Exam General Appearance: Alert, thin, cooperative, he seems older than his age. No respiratory distress noted. Patient is sitting up in a recliner. Neck HEENT: Supple, no lymphadenopathy, no thyroid enlargement, no carotid bruits. Lungs: Decreased breath some bilateral fine rhonchi positive mild crackles in the bases specially the right side with mild inspiratory expiratory wheezes as well. Chest Wall: Chest wall normal expansion with deep inspiration no tenderness and no deformity was found on exam, no costochondral pain or discomfort. Heart: Irregular rhythm and rate S1,S2 +S3, +5 cm JVD. Back: Symmetric, no curvature, ROM normal, no CVA tenderness. Abdomen: Soft, positive bowel sounds, CAPD fluid Extremities: Right side incision looks fine with slight edema around it trace edema on the lower side of his neck as well. Pulses: 2+ and symmetric. Skin: Skin color, texture, tugor normal, no rashes or lesions. Neurologic: Lethargic, oriented 2, no focal neuro deficit. - Labs CBC & Chem 7: 12/27/18 04:35 12/27/18 04:35 Labs: Abnormal Lab Results - Last 24 Hours (Table) 12/26/18 12/26/18 12/27/18 Range/Units 16:58 21:04 04:35 RBC 3.53 L (4.30-5.90) m/uL Hgb 9.7 L (13.0-17.5) gm/dL Hct 31.7 L (39.0-53.0) % MCHC 30.6 L (31.0-37.0) g/dL RDW 18.6 H (11.5-15.5) % Lymphocytes # 0.5 L (1.0-4.8) k/uL Sodium (137-145) mmol/L Potassium (3.5-5.1) mmol/L Chloride (98-107) mmol/L BUN (9-20) mg/dL Creatinine (0.66-1.25) mg/dL Glucose (74-99) mg/dL POC Glucose (mg/dL) 191 H 116 H (75-99) mg/dL Calcium (8.4-10.2) mg/dL 12/27/18 12/27/18 12/27/18 Range/Units 04:35 08:54 12:07 RBC (4.30-5.90) m/uL Hgb (13.0-17.5) gm/dL Hct (39.0-53.0) % MCHC (31.0-37.0) g/dL RDW (11.5-15.5) % Lymphocytes # (1.0-4.8) k/uL Sodium 132 L (137-145) mmol/L Potassium 3.4 L (3.5-5.1) mmol/L Chloride 94 L (98-107) mmol/L BUN 63 H (9-20) mg/dL Creatinine 6.26 H (0.66-1.25) mg/dL Glucose 119 H (74-99) mg/dL POC Glucose (mg/dL) 133 H 161 H (75-99) mg/dL Calcium 8.2 L (8.4-10.2) mg/dL Assessment and Plan Plan: 1 acute hypoxic respiratory failure: Combination of possible pneumonia not ruled out, influenza A, and acute on chronic heart failure. Patient to continue CAPD, DuoNeb treatments, Levaquin, Zosyn. acute coronary syndrome ruled out by cardiology. 2 fluid overload: acute on chronic systolic heart failure with severe impaired left ventricular function patient has been on medical management with his chronic kidney disease this is a contributing factor this point. Continue CAPD we'll consult nephrology and if patient continued to decline might require hemodialysis in the meanwhile continue medical management. 3 COPD: Consult with pulmonary medicine appreciated. Continue nebulizer treatments and oxygen. 4 influenza A: Tamiflu completed. 5 interstitial pneumonitis: Antibiotics completed 6 CHF exacerbation: Mostly systolic dysfunction with acute on a chronic heart failure continue diuretics continue current management. 7 elevated troponin: Cardiology consult appreciated. Acute coronary syndrome ruled out. 8 recent hip fracture: Post ORIF still in rehab at [facility]. Paul have been removed. 9 end-stage renal disease: On CAPD has been seen nephrology for long time we'll consult nephrology at this point. 10 A. fib with RVR, paroxysmal atrial fibrillation: Amiodarone adjusted by cardiology to 200 mg daily. Continue eliquis 5 mg twice daily. 11 type 2 diabetes: Continue NovoLog per sliding scales. 12 hyperlipidemia: On Lopid 6 in the milligrams daily. 13 chronic anemia: On multivitamins and iron also still on Aranesp on weekly basis. 14 severe GERD/GI prophylaxis: Patient remain on Protonix 40 mg daily. 15 chronic pain syndrome: On pain management patient is on a on tramadol 50 mg 4 times a day as needed. 16. Recurrent depression with loss of appetite. Remeron added at bedtime, continue Zoloft. 17. Acute lower GI bleeding most likely hemorrhoidal bleed. 18. Oropharyngeal candidiasis 19. Metabolic encephalopathy possibly related to uremia 20. Severe protein calorie malnutrition started on tube feedings through [facility]. Speech therapy is recommended dysphagia diet with nectar thick liquids and aspiration precautions as well. 21. Adrenal insufficiency. Hydrocortisone decreased to 50 mg IV every 8 hours started. CODE STATUs: NO CODE PER PATIENT WISHES. Discharge plan: Return to [facility] most likely on Monday Impression and plan of care have been directed as dictated by the signing physician. Margot Dorado nurse practitioner acting as scribe for signing physician.
--- NOTE | 2018-12-27 16:31 | P.PN ---
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 The patient came in with increased shortness of breath cough chest congestion wheezing and hypoxemia. Apparently his brother was also sick. The patient was diagnosed having an influenza A tracheobronchitis. He was started on Tamiflu. He was given 1 dose. He was also placed on oxygen therapy and currently is on 3 L of oxygen nasal cannula. He hasn't defervesced and he doesn't have any temperature for the time being. He is undergoing peritoneal dialysis 3 exchanges a day and the dialysate is being altered and modified by nephrology. The patient is producing adequate amount of output during this exchanges. No chest pain. As mentioned he has ischemic cardiomyopathy with an echocardiogram showing impaired LV function of around 20%. No significant signs of fluid overload. No leg edema. The chest x-ray showed cardiomegaly with some mild four-vessel congestion. Still lethargic and weak although improved compared to yesterday. No other significant events overnight. On today's evaluation of 12/20/2018, the patient remains quite lethargic. He is awake and alert and is following commands and answer questions appropriately. He looks very weak and tired and fatigued. No signs of any acute respiratory distress. The patient is still being treated conservatively for an underlying influenza A tracheobronchitis. No significant cough or sputum production. He remains on DuoNeb nebulized treatments around the clock.. . Fluids also was sent from the abdominal cavity and peritoneal cavity and there is also still negative for now. Blood cultures still negative for now. Patient is continuing his peritoneal dialysis under the supervision of nephrology. He is afebrile. He is hemodynamically stable. Pulse oxing 99% oxygen by nasal cannula. The patient did not have a follow-up chest x-ray from today. He remains in droplet isolation. No nausea. No vomiting. No emesis. No other significant events otherwise for now On 12/21/2018 patient seen in follow-up on [facility]. he is somnolent, but easily arousable to stimuli, appears to be fatigued, denies any acute complaints, denies any shortness of breath, denies any chest pain, sounds are positive for a few scattered rhonchi, no wheezing. Pulse ox on 2 L per nasal cannula was 96%, patient is afebrile, did receive 1 dose of oral Tamiflu for influenza A infection, continues on IV Zosyn and Levaquin. Group A strep throat culture was negative, blood cultures and peritoneal fluid cultures are negative thus far. She is slightly hypotensive, with a blood pressure 85/49 with a mean of 61. Nephrology is following, patient is getting peritoneal dialysis exchanges. On 12/22/2018, and seeing this patient for a follow-up. Note that the patient had few episodes of bright red blood per rectum on the medical floor and the patient became hypotensive. For that reason the patient got transferred to the intensive care unit. I gave him a 500 mL of normal saline bolus. He did not require any pressors. Upon further questioning, the family members tell me that the patient had a colonoscopy that was done and [facility] and apparently the colonoscopy was negative and the patient had some hemorrhoids problems. In any rate, the hemoglobin did not drop. The patient is not bleeding and he had brown bowel moments subsequently. However, and that concerned of his underlying mentation. The patient looks encephalopathic. There is a component of metabolic encephalopathy. He would arouse and he was follow simple commands. If left unstimulated, he would go to sleep. He is not having any focal neurological deficits. No seizure activity. A CAT scan of the head that was done during his last admission showed chronic white matter changes without any acute abnormalities. Apparently, post his hip surgery the patient was also slow to recover and remained sleepy and fatigued and lethargic for an extended period of time. He is still undergoing his peritoneal dialysis. He was treated for an influenza a pulmonary infection. His cough is congested. No significant sputum production. His chest x-ray shows interstitial pattern consistent with CHF. He is eating although in my opinion is not reaching his caloric requirements. Today's evaluation of 12/23/2018, the patient remains essentially the same as yesterday. His lethargic. Sleepy. Arousable him a not much conversing. He is resting in bed comfortably. I still insisted the patient has a component of metabolic encephalopathy. I discussed this with the process control programmer and will going to change his PD regimen. He is doing 4 exchanges a day. Chest x-ray shows some mild pulmonary vascular congestion. No S4 distress. No cough or sputum production. His sodium is at 127. No signs of any significant fluid overload. Serum bicarb is 21 and there is no significant acidosis. His oral intake is diminished. We noticed that the patient has extensive oropharyngeal thrush and for that reason the patient will be be started on Diflucan orally. I am still raising the concern for uremia knowing that the patient is quite lethargic and somnolent for now. Blood pressures also fluctuating. Earlier during my evaluation he was noted to have a systolic blood pressure in the 70s. He was started on midodrine. He'll be given a 250 mL of normal saline bolus also. On 12/24/2018 I'm seeing this patient for a follow-up. He is neurologic status is still the same. I will say he is very much lethargic and somnolent and probably encephalopathic. He is arousable. He follows simple commands. He is weak. He is unable to swallow a lot of the food material with pulling in the back of his throat. He was found to have oropharyngeal candidiasis and the patient was started on Diflucan. He is undergoing peritoneal dialysis. No fever or chills. I inserted a triple lumen catheter on him. I give him a bolus of IV fluids. His blood pressures under better control for now. He is on no pressors. He is afebrile. Pulse ox is 97% on 3 L of oxygen by nasal cannula. Tach on is 11.3. His creatinine is at 7.15. Sodium level is improved is up to 133 with a potassium level of 3.5. No other significant events otherwise for now. Denies having any headaches. He is moving all 4 extremities. No seizure activity has been noted. No signs of any fluid overload. The chest x-ray post-line insertion showed some CHF and the line was inserted. Being within the right atrium. On today's evaluation of 12/25/2018, and seeing this patient for a follow-up. Slightly more awake and interactive compared to yesterday. Note that I found that the patient's swallow mechanism was poor. He also was not meeting his caloric requirements. Based on that, I inserted a Doppler of tube yesterday and he was started on enteral feeding for nutritional support. He is currently on 10 mL of Nepro. He is doing well and is tolerating his diet. No abdominal distention. He was slightly hypotensive earlier this morning. His CVP was low at 3. The patient will be given a bolus of 500 mL of normal saline. He continues to undergo his PD exchanges. He has completed his course of Zosyn. He is also on Levaquin. He was allegedly admitted for an acute influenza pulmonary infection/bronchitis. No abdominal distention. No focal neurological deficits. Despite his lethargy and sleepiness, the patient arouses without any major difficulties. He is oropharyngeal status has been adequately treated with Diflucan. The patient has no other specific complaints. On today's evaluation of 12/26/2018, I'm seeing this patient for a follow-up. The patient has been receiving enteral feeding for nutritional support via Dobbhoff. He is doing well. He is more awake and interactive. No fever. No chills. His blood pressures improved significantly and I do not see the need for IV hydrocortisone and this will be discontinued. I would also discontinue the midodrine. The patient will have his Dobbhoff removed today. He is undergoing his dialysis exchanges on a daily basis. Minimal congested copy no sputum production. His oropharyngeal thrush has improved. No focal neurological deficit. He was able to get up on a chair and eat 25% of his meal. On 12/27/2018 the patient is awake and alert. He is following commands. He is eating. No aspiration. The thrush has subsided. Hemodynamically stable. No fever or chills no significant sputum production. He is alert. We are going to transfer this patient out of the intensive care unit. He'll be likely going to monitor with at a later stage. Otherwise, the patient is resting comfortably in bed. No other specific events or any concerns. He is waiting for her room at medical surgical floor. Objective - Vital Signs Vital signs: Vital Signs Temp 97.9 F 12/27/18 11:00 Pulse 75 12/27/18 11:00 Resp 21 12/27/18 11:00 BP 94/55 12/27/18 11:00 Pulse Ox 88 L 12/27/18 11:00 Intake & Output 12/26/18 12/27/18 12/27/18 18:59 06:59 18:59 Intake Total 295 10 305 Output Total 0 0 0 Balance 295 10 305 Weight 56.8 kg 56.8 kg Intake: IV 55 10 5 0.9% Normal Saline 55 10 5 Oral 300 Tube Feeding 240 0 Output: Urine 0 0 0 Other: Voiding Method CAPD CAPD CAPD # Voids 0 0 # Bowel Movements 1 - Exam General Appearance: Alert, cooperative, he seems older than his age. The patient is on oxygen at 3 L per minute nasal cannula, the patient has a Dobbhoff is removed Neck HEENT: Supple, no lymphadenopathy, no thyroid enlargement, no carotid bruits. The patient has a right IJ triple-lumen catheter in place. Lungs: Decreased breath some bilateral fine rhonchi positive mild crackles in the bases specially the right side with mild inspiratory expiratory wheezes as well. Chest Wall: Chest wall normal expansion with deep inspiration no tenderness and no deformity was found on exam, no costochondral pain or discomfort. Heart: Irregular rhythm and rate S1,S2 +S3, +2 cm JVD. Back: Symmetric, no curvature, ROM normal, no CVA tenderness. Abdomen: Soft positive bowel sound patient had quite Ascites from his CAPD fluid with mild discomfort in the right upper quadrant area.The patient has a PD catheter and a PD site is clean and dry and intact. No direct tenderness or rebound tensile guarding at this point in time. Extremities: Right side incision looks fine with slight edema around it trace edema on the lower side of his neck as well. Pulses: 1+ and symmetric. Skin: Skin color, texture, tugor normal, no rashes or lesions. Neurologic: Lethargic, sleepy, arousable, follows simple commands and responds to questions appropriately. No focal neurological deficits. Overall, the patient seems to be much more alert compared to yesterday. - Labs CBC & Chem 7: 12/27/18 04:35 12/27/18 04:35 Labs: Abnormal Lab Results - Last 24 Hours (Table) 12/26/18 12/26/18 12/27/18 Range/Units 16:58 21:04 04:35 RBC 3.53 L (4.30-5.90) m/uL Hgb 9.7 L (13.0-17.5) gm/dL Hct 31.7 L (39.0-53.0) % MCHC 30.6 L (31.0-37.0) g/dL RDW 18.6 H (11.5-15.5) % Lymphocytes # 0.5 L (1.0-4.8) k/uL Sodium (137-145) mmol/L Potassium (3.5-5.1) mmol/L Chloride (98-107) mmol/L BUN (9-20) mg/dL Creatinine (0.66-1.25) mg/dL Glucose (74-99) mg/dL POC Glucose (mg/dL) 191 H 116 H (75-99) mg/dL Calcium (8.4-10.2) mg/dL 12/27/18 12/27/18 12/27/18 Range/Units 04:35 08:54 12:07 RBC (4.30-5.90) m/uL Hgb (13.0-17.5) gm/dL Hct (39.0-53.0) % MCHC (31.0-37.0) g/dL RDW (11.5-15.5) % Lymphocytes # (1.0-4.8) k/uL Sodium 132 L (137-145) mmol/L Potassium 3.4 L (3.5-5.1) mmol/L Chloride 94 L (98-107) mmol/L BUN 63 H (9-20) mg/dL Creatinine 6.26 H (0.66-1.25) mg/dL Glucose 119 H (74-99) mg/dL POC Glucose (mg/dL) 133 H 161 H (75-99) mg/dL Calcium 8.2 L (8.4-10.2) mg/dL Assessment and Plan Plan: Assessment 1 acute hypoxic respiratory failure secondary to an acute influenza pulmonary infection/bronchitis. Pneumonia is doubtful, and the chest x-ray findings are stable for now. The patient is currently off liters of oxygen nasal cannula per no signs of any significant rest or distress. 2 acute CHF exacerbation. The patient has systolic dysfunction with an ejection fraction of around 25% based on the most recent echocardiogram, and there is an interval drop in his echocardiogram with an ejection fraction back in 2018 being in the 40% range. Consider an ischemic cardiomyopathy. Patient did have a troponin leak at time of admission. 3 end-stage renal disease on peritoneal dialysis, the patient continues to undergo his PD exchanges. We are awaiting the urea nitrogen from the dialysate to assess for the clearance. 4 hypotension, loss likely cardiac in nature in addition to the fact that the patient is having peritoneal dialysis. The patient's serum cortisol is at 44. He TSH is at 0.49. 5 recent ORIF for right hip fracture 6 chronic atrial fibrillation maintained on amiodarone and oral Eliquis 7 diabetes mellitus type 2 8 hyperlipidemia 9 chronic anemia 10 diminished level of consciousness most likely consistent with metabolic encephalopathy. Rule out uremic encephalopathy. 11 brief hypotension recovered with IV fluids 12 lower GI bleed, most likely hemorrhoidal bleed. 13 debilitation and impaired performance and functional status secondary to above-mentioned comorbidities 14 oropharyngeal candidiasis, currently on Diflucan Plan Condition is stable. I would suggest advancing diet. Complete 7 day course of Diflucan. Hemodynamically stable continue with the PD exchanges. Discharge to a medical surgical floor and later on tomorrow with [place]. Family is at the bedside.
[2018-12-27 17:39] LABS: Glucose,Whole Blood 178 mg/dL (75-99)
[2018-12-27 21:26] LABS: Glucose,Whole Blood 148 mg/dL (75-99)
[2018-12-28] MEDS: DIALYSIS (PERIT 1.5%) 2,500 ML 37.5 G/2,500 ML BAG INTRAPERIT SCH ×5 (01:29→20:04)
[2018-12-28] MEDS: CLOTRIMAZOLE TROCHE 10 MG TROCHE MUCOUS MEM SCH ×6 (01:32→22:30)
[2018-12-28 06:04] LABS: Calcium 8.3 mg/dL (8.4-10.2); Phosphorus 4.3 mg/dL (2.5-4.5)
[2018-12-28 06:05] LABS: Anisocytosis Slight; HCT 32.1 % (39.0-53.0); HGB 10.1 gm/dL (13.0-17.5); Hypochromasia Moderate; MCH 28.7 pg (25.0-35.0); MCHC 31.6 g/dL (31.0-37.0); MCV 90.8 fL (80.0-100.0); Mean Platelet Volume 7.5; Platelet Count 276 k/uL (150-450); Poikilocytosis Slight; RBC 3.54 m/uL (4.30-5.90); RDW 18.5 % (11.5-15.5); WBC 8.2 k/uL (3.8-10.6)
--- NOTE | 2018-12-28 08:36 | P.PN ---
Subjective Patient is seen in follow-up for end-stage renal disease. He is maintained on peritoneal dialysis. He is receiving 5 exchanges daily with 1.5% solution. He is maintaining a net negative fluid balance. Creatinine is trending down. He is currently being treated for influenza A virus. He is more awake and alert today. He has been transferred out of the intensive care unit. He does have history of systolic CHF with ejection fraction of 25-30%. Vital signs are stable. General: The patient appeared well nourished and normally developed. HEENT: Head exam is unremarkable. Neck is without jugular venous distension. LUNGS: Lungs are clear to auscultation and percussion. Breath sounds decreased. HEART: Rate and Rhythm are regular. First and second heart sounds normal. No murmurs, rubs or gallops. ABDOMEN: Abdominal exam reveals normal bowel sounds. Non-tender and non- distended. No evidence of peritonitis. EXTREMITITES: No clubbing, cyanosis, or edema. Objective - Vital Signs Vital signs: Vital Signs Temp 97.5 F L 12/28/18 05:00 Pulse 78 12/28/18 05:00 Resp 16 12/28/18 05:00 BP 143/71 12/28/18 05:00 Pulse Ox 95 12/28/18 05:00 Intake & Output 12/27/18 12/28/18 12/28/18 18:59 06:59 18:59 Intake Total 305 40 Output Total 0 0 Balance 305 40 Weight 56.8 kg 60 kg Intake: IV 5 40 0.9% Normal Saline 5 40 Oral 300 Output: Urine 0 0 Other: Voiding Method CAPD CAPD # Voids 0 # Bowel Movements 1 2 - Labs CBC & Chem 7: 12/28/18 05:16 12/28/18 05:16 Labs: Abnormal Lab Results - Last 24 Hours (Table) 12/27/18 12/27/18 12/27/18 Range/Units 08:54 12:07 17:17 RBC (4.30-5.90) m/uL Hgb (13.0-17.5) gm/dL Hct (39.0-53.0) % RDW (11.5-15.5) % Sodium (137-145) mmol/L Chloride (98-107) mmol/L BUN (9-20) mg/dL Creatinine (0.66-1.25) mg/dL Glucose (74-99) mg/dL POC Glucose (mg/dL) 133 H 161 H 178 H (75-99) mg/dL Calcium (8.4-10.2) mg/dL 12/27/18 12/28/18 12/28/18 Range/Units 21:15 05:16 05:16 RBC 3.54 L (4.30-5.90) m/uL Hgb 10.1 L (13.0-17.5) gm/dL Hct 32.1 L (39.0-53.0) % RDW 18.5 H (11.5-15.5) % Sodium 134 L (137-145) mmol/L Chloride 95 L (98-107) mmol/L BUN 69 H (9-20) mg/dL Creatinine 5.88 H (0.66-1.25) mg/dL Glucose 147 H (74-99) mg/dL POC Glucose (mg/dL) 148 H (75-99) mg/dL Calcium 8.3 L (8.4-10.2) mg/dL Assessment and Plan Plan: Assessment: 1. End-stage renal disease maintained on peritoneal dialysis. 2. Influenza A virus. 3. Systolic CHF ejection fraction of 25-30%. 4. Chronic hypotension related to underlying cardiac status maintained on midodrine. Cortisol and TSH level normal. Blood pressure much improved with IV steroids. 5. Chronic kidney disease mineral bone disease maintained on phosphate binders. 6. Anemia of chronic kidney disease maintained on Aranesp. 7. Hyponatremia secondary to chronic kidney disease. Plan: Maintain current PD exchanges. Due to patient's underlying hypotension and cardiac status, he will not be a good long-term candidate for hemodialysis. Maintain Midodrine as needed. Blood pressure is improved with IV steroids. Recommend decreasing the dose of steroids to 50 mg once daily and can likely be discontinued tomorrow. If becomes hypotensive, he may benefit from oral Florinef and scheduled midodrine.
[2018-12-28] MEDS: AMIODARONE 200 MG TAB PO SCH (09:56)
[2018-12-28] MEDS: ENOXAPARIN 30 MG/0.3 ML SYRINGE SQ SCH (09:56)
[2018-12-28] MEDS: ATORVASTATIN 40 MG TAB PO SCH (09:56)
[2018-12-28] MEDS: INSULIN DETEMIR (LEVEMIR) 100 UNIT/ML SYR SQ SCH (09:58)
[2018-12-28] MEDS: PANTOPRAZOLE 40 MG TABLET PO SCH (10:00)
[2018-12-28 11:04] LABS: Glucose,Whole Blood 147 mg/dL (75-99)
[2018-12-28] MEDS: SERTRALINE 25 MG TAB PO SCH (12:09)
[2018-12-28] MEDS: GENTAMICIN 0.1% CREAM 15 GM TUBE TOPICAL SCH (12:17)
[2018-12-28] MEDS: INSULIN ASPART (NovoLOG) 100 UNIT/ML VIAL SQ SCH ×4 (12:17→22:23)
[2018-12-28] MEDS: HYDROCORTISONE SUCCINATE 100 MG/2 ML VIAL IV SCH ×2 (12:22→22:37)
[2018-12-28] MEDS: SEVELAMER 800 MG TAB PO SCH ×2 (12:24→22:31)
[2018-12-28] MEDS: VELPHORO 500 MG PO SCH (12:25)
[2018-12-28] MEDS: SODIUM CHLORIDE 0.9% 1,000 ML IV SCH (12:28)
[2018-12-28] MEDS: CALCIUM CARB-MAG CARB-FOLIC 1 EACH TAB PO SCH ×3 (13:18→19:29)
[2018-12-28] MEDS: MAG HYDROX/AL HYDROX/SIMETH 30 ML, LIDOCAINE VISCOUS 30 ML, diphenhydrAMINE ELIXIR 75 M... PO SCH ×12 (13:29→22:31)
[2018-12-28] MEDS: LIDOCAINE 5% PATCH TOPICAL SCH (13:30)
[2018-12-28] MEDS: ATENOLOL 12.5 MG TAB PO SCH (13:31)
[2018-12-28] MEDS: MULTIVITAMINS, THERA 1 EACH TAB PO SCH (13:32)
[2018-12-28] MEDS: FLUCONAZOLE IN NACL,ISO-OSM 100 MG in SALINE 1 50ML.BAG IVPB SCH (13:35)
--- NOTE | 2018-12-28 13:54 | P.PN ---
Subjective Progress Note Date: 12/28/18 Principal diagnosis: Acute hypoxic respiratory failure secondary to acute influenza pulmonary infection/bronchitis A 73-year-old male patient with multiple medical problems and comorbidities including ischemic cardiomyopathy, end-stage renal disease currently on peritoneal dialysis in addition to hypertension and hyperlipidemia, Dr. disease with previous endarterectomy, and mitral insufficiency. The patient came in with increased shortness of breath cough chest congestion wheezing and hypoxemia. Apparently his brother was also sick. The patient was diagnosed having an influenza A tracheobronchitis. He was started on Tamiflu. He was given 1 dose. He was also placed on oxygen therapy and currently is on 3 L of oxygen nasal cannula. He hasn't defervesced and he doesn't have any temperature for the time being. He is undergoing peritoneal dialysis 3 exchanges a day and the dialysate is being altered and modified by nephrology. The patient is producing adequate amount of output during this exchanges. No chest pain. As mentioned he has ischemic cardiomyopathy with an echocardiogram showing impaired LV function of around 20%. No significant signs of fluid overload. No leg edema. The chest x-ray showed cardiomegaly with some mild four-vessel congestion. Still lethargic and weak although improved compared to yesterday. No other significant events overnight. On today's evaluation of 12/20/2018, the patient remains quite lethargic. He is awake and alert and is following commands and answer questions appropriately. He looks very weak and tired and fatigued. No signs of any acute respiratory distress. The patient is still being treated conservatively for an underlying influenza A tracheobronchitis. No significant cough or sputum production. He remains on DuoNeb nebulized treatments around the clock.. . Fluids also was sent from the abdominal cavity and peritoneal cavity and there is also still negative for now. Blood cultures still negative for now. Patient is continuing his peritoneal dialysis under the supervision of nephrology. He is afebrile. He is hemodynamically stable. Pulse oxing 99% oxygen by nasal cannula. The patient did not have a follow-up chest x-ray from today. He remains in droplet isolation. No nausea. No vomiting. No emesis. No other significant events otherwise for now On 12/21/2018 patient seen in follow-up on [facility]. he is somnolent, but easily arousable to stimuli, appears to be fatigued, denies any acute complaints, denies any shortness of breath, denies any chest pain, sounds are positive for a few scattered rhonchi, no wheezing. Pulse ox on 2 L per nasal cannula was 96%, patient is afebrile, did receive 1 dose of oral Tamiflu for influenza A infection, continues on IV Zosyn and Levaquin. Group A strep throat culture was negative, blood cultures and peritoneal fluid cultures are negative thus far. She is slightly hypotensive, with a blood pressure 85/49 with a mean of 61. Nephrology is following, patient is getting peritoneal dialysis exchanges. On 12/22/2018, and seeing this patient for a follow-up. Note that the patient had few episodes of bright red blood per rectum on the medical floor and the patient became hypotensive. For that reason the patient got transferred to the intensive care unit. I gave him a 500 mL of normal saline bolus. He did not require any pressors. Upon further questioning, the family members tell me that the patient had a colonoscopy that was done and [facility] and apparently the colonoscopy was negative and the patient had some hemorrhoids problems. In any rate, the hemoglobin did not drop. The patient is not bleeding and he had brown bowel moments subsequently. However, and that concerned of his underlying mentation. The patient looks encephalopathic. There is a component of metabolic encephalopathy. He would arouse and he was follow simple commands. If left unstimulated, he would go to sleep. He is not having any focal neurological deficits. No seizure activity. A CAT scan of the head that was done during his last admission showed chronic white matter changes without any acute abnormalities. Apparently, post his hip surgery the patient was also slow to recover and remained sleepy and fatigued and lethargic for an extended period of time. He is still undergoing his peritoneal dialysis. He was treated for an influenza a pulmonary infection. His cough is congested. No significant sputum production. His chest x-ray shows interstitial pattern consistent with CHF. He is eating although in my opinion is not reaching his caloric requirements. Today's evaluation of 12/23/2018, the patient remains essentially the same as yesterday. His lethargic. Sleepy. Arousable him a not much conversing. He is resting in bed comfortably. I still insisted the patient has a component of metabolic encephalopathy. I discussed this with the public works supervisor and will going to change his PD regimen. He is doing 4 exchanges a day. Chest x-ray shows some mild pulmonary vascular congestion. No S4 distress. No cough or sputum production. His sodium is at 127. No signs of any significant fluid overload. Serum bicarb is 21 and there is no significant acidosis. His oral intake is diminished. We noticed that the patient has extensive oropharyngeal thrush and for that reason the patient will be be started on Diflucan orally. I am still raising the concern for uremia knowing that the patient is quite lethargic and somnolent for now. Blood pressures also fluctuating. Earlier during my evaluation he was noted to have a systolic blood pressure in the 70s. He was started on midodrine. He'll be given a 250 mL of normal saline bolus also. On 12/24/2018 I'm seeing this patient for a follow-up. He is neurologic status is still the same. I will say he is very much lethargic and somnolent and probably encephalopathic. He is arousable. He follows simple commands. He is weak. He is unable to swallow a lot of the food material with pulling in the back of his throat. He was found to have oropharyngeal candidiasis and the patient was started on Diflucan. He is undergoing peritoneal dialysis. No fever or chills. I inserted a triple lumen catheter on him. I give him a bolus of IV fluids. His blood pressures under better control for now. He is on no pressors. He is afebrile. Pulse ox is 97% on 3 L of oxygen by nasal cannula. Tach on is 11.3. His creatinine is at 7.15. Sodium level is improved is up to 133 with a potassium level of 3.5. No other significant events otherwise for now. Denies having any headaches. He is moving all 4 extremities. No seizure activity has been noted. No signs of any fluid overload. The chest x-ray post-line insertion showed some CHF and the line was inserted. Being within the right atrium. On today's evaluation of 12/25/2018, and seeing this patient for a follow-up. Slightly more awake and interactive compared to yesterday. Note that I found that the patient's swallow mechanism was poor. He also was not meeting his caloric requirements. Based on that, I inserted a Doppler of tube yesterday and he was started on enteral feeding for nutritional support. He is currently on 10 mL of Nepro. He is doing well and is tolerating his diet. No abdominal distention. He was slightly hypotensive earlier this morning. His CVP was low at 3. The patient will be given a bolus of 500 mL of normal saline. He continues to undergo his PD exchanges. He has completed his course of Zosyn. He is also on Levaquin. He was allegedly admitted for an acute influenza pulmonary infection/bronchitis. No abdominal distention. No focal neurological deficits. Despite his lethargy and sleepiness, the patient arouses without any major difficulties. He is oropharyngeal status has been adequately treated with Diflucan. The patient has no other specific complaints. On today's evaluation of 12/26/2018, I'm seeing this patient for a follow-up. The patient has been receiving enteral feeding for nutritional support via Dobbhoff. He is doing well. He is more awake and interactive. No fever. No chills. His blood pressures improved significantly and I do not see the need for IV hydrocortisone and this will be discontinued. I would also discontinue the midodrine. The patient will have his Dobbhoff removed today. He is undergoing his dialysis exchanges on a daily basis. Minimal congested copy no sputum production. His oropharyngeal thrush has improved. No focal neurological deficit. He was able to get up on a chair and eat 25% of his meal. On 12/27/2018 the patient is awake and alert. He is following commands. He is eating. No aspiration. The thrush has subsided. Hemodynamically stable. No fever or chills no significant sputum production. He is alert. We are going to transfer this patient out of the intensive care unit. He'll be likely going to monitor with at a later stage. Otherwise, the patient is resting comfortably in bed. No other specific events or any concerns. He is waiting for her room at medical surgical floor. The patient is seen today 12/28/2017 in follow-up on the regular medical floor. He is awake and alert in no acute distress. He is maintaining good O2 saturations in the mid 90s on room air. He's been afebrile. Hemodynamically stable. Blood cultures reveal no growth. Peritoneal fluid reveals no growth. Throat culture reveals no growth. White count 8.2. Hemoglobin 10.1. Creatinine 5.88. He is receiving CAPD exchanges. Objective - Vital Signs Vital signs: Vital Signs Temp 97.7 F 12/28/18 12:34 Pulse 84 12/28/18 12:34 Resp 16 12/28/18 12:34 BP 122/64 12/28/18 12:34 Pulse Ox 96 12/28/18 12:34 Intake & Output 12/27/18 12/28/18 12/28/18 18:59 06:59 18:59 Intake Total 305 40 Output Total 0 0 0 Balance 305 40 0 Weight 56.8 kg 60 kg Intake: IV 5 40 0.9% Normal Saline 5 40 Oral 300 Output: Urine 0 0 0 Other: Voiding Method CAPD CAPD # Voids 0 0 # Bowel Movements 1 2 1 - Exam GENERAL EXAM: Alert, active, comfortable in no apparent distress. On room air. HEAD: Normocephalic. EYES: Normal reaction of pupils, equal size. NOSE: Clear with pink turbinates. THROAT: No erythema or exudates. NECK: No masses, no JVD. CHEST: No chest wall deformity. LUNGS: Equal air entry with faint crackles in the posterior bases CVS: S1 and S2 normal with no audible murmur, regular rhythm. ABDOMEN: No hepatosplenomegaly, normal bowel sounds, no guarding or rigidity. Receiving CAPD. Catheter site clean dry. SPINE: No scoliosis or deformity SKIN: No rashes CENTRAL NERVOUS SYSTEM: No focal deficits, tone is normal in all 4 extremities. EXTREMITIES: There is no peripheral edema. No clubbing, no cyanosis. Peripheral pulses are intact. - Labs CBC & Chem 7: 12/28/18 05:16 12/28/18 05:16 Labs: Abnormal Lab Results - Last 24 Hours (Table) 12/27/18 12/27/18 12/28/18 Range/Units 17:17 21:15 05:16 RBC 3.54 L (4.30-5.90) m/uL Hgb 10.1 L (13.0-17.5) gm/dL Hct 32.1 L (39.0-53.0) % RDW 18.5 H (11.5-15.5) % Sodium (137-145) mmol/L Chloride (98-107) mmol/L BUN (9-20) mg/dL Creatinine (0.66-1.25) mg/dL Glucose (74-99) mg/dL POC Glucose (mg/dL) 178 H 148 H (75-99) mg/dL Calcium (8.4-10.2) mg/dL 12/28/18 12/28/18 Range/Units 05:16 11:02 RBC (4.30-5.90) m/uL Hgb (13.0-17.5) gm/dL Hct (39.0-53.0) % RDW (11.5-15.5) % Sodium 134 L (137-145) mmol/L Chloride 95 L (98-107) mmol/L BUN 69 H (9-20) mg/dL Creatinine 5.88 H (0.66-1.25) mg/dL Glucose 147 H (74-99) mg/dL POC Glucose (mg/dL) 147 H (75-99) mg/dL Calcium 8.3 L (8.4-10.2) mg/dL Assessment and Plan Assessment: Assessment 1 acute hypoxic respiratory failure secondary to an acute influenza pulmonary infection/bronchitis. Pneumonia is doubtful, and the chest x-ray findings are stable for now. The patient is currently off liters of oxygen nasal cannula per no signs of any significant rest or distress. 2 acute CHF exacerbation. The patient has systolic dysfunction with an ejection fraction of around 25% based on the most recent echocardiogram, and there is an interval drop in his echocardiogram with an ejection fraction back in 2018 being in the 40% range. Consider an ischemic cardiomyopathy. Patient did have a troponin leak at time of admission. 3 end-stage renal disease on peritoneal dialysis, the patient continues to undergo his PD exchanges. We are awaiting the urea nitrogen from the dialysate to assess for the clearance. 4 hypotension, loss likely cardiac in nature in addition to the fact that the patient is having peritoneal dialysis. The patient's serum cortisol is at 44. He TSH is at 0.49. 5 recent ORIF for right hip fracture 6 chronic atrial fibrillation maintained on amiodarone and oral Eliquis 7 diabetes mellitus type 2 8 hyperlipidemia 9 chronic anemia 10 diminished level of consciousness most likely consistent with metabolic encephalopathy. Rule out uremic encephalopathy. 11 brief hypotension recovered with IV fluids 12 lower GI bleed, most likely hemorrhoidal bleed. 13 debilitation and impaired performance and functional status secondary to above-mentioned comorbidities 14 oropharyngeal candidiasis, currently on Diflucan Plan The patient was seen and evaluated by Dr. Willis. He is stable from the pulmonary standpoint. Maintaining good O2 saturations in the 90s on room air now. Continue bronchodilators. We will see the patient on as-needed basis. I, the cosigning physician, performed a history & physical examination of the patient. Lungs sounds with faint crackles. Maintaining good O2 saturations in the 90s on room air. I discussed the assessment and plan of care with my nurse practitioner, Marilin Ricks. I attest to the above note as dictated by her.
[2018-12-28] MEDS: FENOFIBRATE 160 MG TAB PO SCH (14:13)
--- NOTE | 2018-12-28 14:50 | P.PN ---
Subjective Progress Note Date: 12/28/18 73-year-old male who is known from [facility] was hospitalized last week with hip fracture post-ORIF who had severe lethargy and change in mental status after surgery was transferred to [facility] where was seen by neurology and evaluated and found to have severe encephalopathy mostly medication related medication were adjusted patient started to feel much better still have no weight bearing on the hip area was transferred to [facility] for rehab. Patient is doing CAPD 4 end-stage renal disease and has been doing well with it continue to decline over ROM the last 12 hours. 2 calling EMS with found to have significant hypoxia with the worsening congestion and cough pro ductive dark phlegm along with significant weight gain and fluid retention. Ended up coming via EMS to demurs department at [facility] where was seen and evaluated his influenza A was positive ration found to be in quite bed fluid overload with pro-BNP was 85,000 patient chest x-ray showed sign of pneumonia as well he was started on Zosyn and Levaquin along with Tamiflu patient will be seen pulmonary and admitted to the hospital with above problem. 12/19: Patient is receiving CAPD managed by Dr. Wilkinson. The removed significant fluid last night. Chest x-ray was ordered this morning. The patient has been seen by pulmonary medicine for multifactorial dyspnea but doubt pneumonia but we'll plan to continue antibiotics. Cardiology is following for heart failure and fluid overload. They have decreased amiodarone to 200 mg daily and also recommend starting eliquis 5 mg twice daily. Acute coronary syndrome ruled out. Echocardiogram reveals EF 25-30% with LA severely dilated, mild mitral regurgitation, mild tricuspid regurgitation, borderline pulmonary hypertension. 12/20: Patient states he is feeling better today with decreased shortness of breath. He remains in influenza isolation. [place] removed moved from his previous hip surgery done yesterday. He is continued on CAPD managed by Dr. Wilkinson. He has been afebrile, blood pressure 93/55, heart rate in the 70s and 80s, pulse ox 99% on 3 L nasal cannula. The chest x-ray from yesterday reveals increasing interstitial infiltrates and edema compared to last exam. This could be worsening heart failure. 12/21: Patient had low blood pressure this morning and dialysis fluid has been adjusted by nephrology. Atenolol was held this morning. Patient has been eating very little and agrees that he is depressed. Remeron added at bedtime. CODE STATUS clarified for DO NOT RESUSCITATE. PT and OT are following the patient and he is total assist with early fatigue. He remains afebrile, heart rate running in the 80s, pulse ox 97% on 2 L. White count 13.8, hemoglobin 10.8. Sodium 132, potassium 4.4, chloride 90, CO2 27, BUN 77 creatinine 8.29. Blood sugars run between 107 and 165. Albumin is 2.6. Anticipate discharge back to [facility] on Monday. 12/22: Patient continues to have low blood pressure this morning. Patient has not had CAPD at this time due to the low blood pressure. Dr. Wilkinson has CAPD on hold until systolic is greater than 100. Patient's appetite continues to be poor. Affect continues to be depressed. Remeron was added. Patient remained afebrile, heart rate running in the 80s, pulse ox around 96-97% on 2 L. WAC 19.8, hemoglobin 11.3, sodium 132 potassium 4.6, chloride 90, BUN 77 creatinine 8.21. Lactic acid 1.8 12/23: Patient still has poor appetite complaining of sores in mouth. Upon examination thrush is present. Patient continues to be hypotensive blood pressure today 90/52 with a heart rate of 71. Affect continues to be depressed. Patient remains afebrile. Pulse ox 93% on room air. Blood sugar is running between 94 and 110. Family is at the bedside. 12/24: There was an A=Team : The patient over the weekend for acute bleeding with few episodes of bright red blood per rectum and altered mental status, temp greater than 100 and patient was subsequently transferred to the intensive care unit. He received a fluid bolus but has not been on vasopressors. Blood pressu re this morning is 97/58, temperature 99.3, pulse ox 97% on 3 L nasal cannula, heart rate running in the 60s and 70s. White count is 11.3, hemoglobin 9.5. Sodium is improved to 133, potassium 3.5, chloride 93, CO2 27. BUN 75 and creatinine 7.15. Peritoneal fluid Gram stain hasn't finalized with no growth. Blood culture showing no growth and group A strep culture is finalized with no growth. Triple lumen was placed by Dr. Willis yesterday. Chest x-ray this morning reveals congestive heart failure. Right central line within the right atrium or within the proximal inferior vena cava. He is continued on CAPD. Patient remains very lethargic. He did have a bowel movement last night and this morning. 12/25: Patient remains lethargic, little oral intake, speech therapy has evaluated and recommended dysphagia diet with nectar thick liquids and aspiration precautions. Patient is also on tube feedings via [facility]. No significant change from yesterday. He continues on CAPD managed by Dr. Chun. Discussed with Dr. Chun and decision made to start hydrocortisone 100 mg every 8 hours for the next 2 days. Zosyn was discontinued by Dr. Willis as he completed course. He was given a fluid bolus of 500 ML's. 12/26: Patient remains in the intensive care unit. He is on tube feedings but apparently did not get any oral feeding last night. He seems to be improving with Solu-Cortef and this will be decreased to 50 mg IV every 8 hours. We will change managing that was ordered by pulmonary medicine to when necessary for blood pressure. He has been afebrile, blood pressure 133/77, pulse 79, pulse ox 97% on 3 L nasal cannula. White count is normal at 5.3, hemoglobin 9.4, BUN 65 creatinine 6.71. Capillary blood glucose running between 144-199. Levemir will be added daily. He is also on NovoLog scale. 12/27: The patient remains in intensive care unit and waning for [facility] since yesterday. Patient is found sitting up in a recliner and appears to be comfortable. He is more interactive today. He ate is breakfast this morning. He has friends and family at the bedside. Repeat lab work shows a white count of 7.4, hemoglobin 9.7, platelet count 233. Sodium 132, potassium 3.4, chloride 94, CO2 26, BUN 63 and creatinine 6.26. Capillary blood glucose running between 116 and 161. Patient is plan for return to [facility] most likely this will occur on Monday. 12/28: Patient has been transferred to the [facility] floor. He has been afebrile. Heart rate in the 60s and 70s, blood pressure 143/71, pulse ox 95% on room air. Repeat lab work shows a white count of 8.2, hemoglobin 10.1, platelet count 276. Sodium 134, potassium 4.0, chloride 95, CO2 27, BUN 69 creatinine 5.88. Blood sugars are running 147 through 178. The patient is continued on CAPD. Patient is not eating much today. Nurse states the patient had 5 bowel movements this morning and stool will be sent for C. difficile toxin. Patient is noted to have a stage II decubitus on coccyx. [facility] Review of Systems CONSTITUTIONAL: No fever no chills. Reports generalized weakness, reports malaise EYES: No icterus sclerae, no conjunctivitis. EARS, NOSE, MOUTH, THROAT, and FACE: No sore throat, lymphadenopathy, carotid bruits or deformity. RESPIRATORY: Positive dyspnea and shortness of breath. CARDIOVASCULAR: Positive PND orthopnea palpitation. GASTROINTESTINAL: Abdominal distention and ascites from his CAPD. Reports diarrhea GENITOURINARY: Negative for Hematuria or UTI, no kidney stones. INTEGUMENT/BREAST: Possible right hip pain. HEMATOLOGIC/LYMPHATIC: Negative for bleed or purpura. MUSCULOSKELTAL: Negative for Myalgia or arthralgia. NEURLOGICAL: No LOC, Sz or syncope, blurred vision dizziness or abnormality. BEHAVIORAL/PSYCH: Reports depression reports lack of appetite. ENDOCRINE: Negative. Objective - Vital Signs Vital signs: Vital Signs Temp 97.5 F L 12/28/18 05:00 Pulse 78 12/28/18 05:00 Resp 16 12/28/18 05:00 BP 143/71 12/28/18 05:00 Pulse Ox 95 12/28/18 05:00 Intake & Output 12/27/18 12/28/18 12/28/18 18:59 06:59 18:59 Intake Total 305 40 Output Total 0 0 Balance 305 40 Weight 56.8 kg 60 kg Intake: IV 5 40 0.9% Normal Saline 5 40 Oral 300 Output: Urine 0 0 Other: Voiding Method CAPD CAPD # Voids 0 # Bowel Movements 1 2 - Exam General Appearance: Alert, thin, cooperative, he seems older than his age. No respiratory distress noted. Patient in bed. Neck HEENT: Supple, no lymphadenopathy, no thyroid enlargement, no carotid bruits. Lungs: Decreased breath some bilateral fine rhonchi positive mild crackles in the bases specially the right side with mild inspiratory expiratory wheezes as well. Chest Wall: Chest wall normal expansion with deep inspiration no tenderness and no deformity was found on exam, no costochondral pain or discomfort. Heart: Irregular rhythm and rate S1,S2 +S3, +5 cm JVD. Back: Symmetric, no curvature, ROM normal, no CVA tenderness. Abdomen: Soft, positive bowel sounds, CAPD fluid Extremities: Right side incision looks fine. Pulses: 2+ and symmetric. Skin: Skin color, texture, tugor normal, no rashes or lesions. Neurologic: Lethargic, oriented 2, no focal neuro deficit. - Labs CBC & Chem 7: 12/28/18 05:16 12/28/18 05:16 Labs: Abnormal Lab Results - Last 24 Hours (Table) 12/27/18 12/27/18 12/27/18 Range/Units 08:54 12:07 17:17 RBC (4.30-5.90) m/uL Hgb (13.0-17.5) gm/dL Hct (39.0-53.0) % RDW (11.5-15.5) % Sodium (137-145) mmol/L Chloride (98-107) mmol/L BUN (9-20) mg/dL Creatinine (0.66-1.25) mg/dL Glucose (74-99) mg/dL POC Glucose (mg/dL) 133 H 161 H 178 H (75-99) mg/dL Calcium (8.4-10.2) mg/dL 12/27/18 12/28/18 12/28/18 Range/Units 21:15 05:16 05:16 RBC 3.54 L (4.30-5.90) m/uL Hgb 10.1 L (13.0-17.5) gm/dL Hct 32.1 L (39.0-53.0) % RDW 18.5 H (11.5-15.5) % Sodium 134 L (137-145) mmol/L Chloride 95 L (98-107) mmol/L BUN 69 H (9-20) mg/dL Creatinine 5.88 H (0.66-1.25) mg/dL Glucose 147 H (74-99) mg/dL POC Glucose (mg/dL) 148 H (75-99) mg/dL Calcium 8.3 L (8.4-10.2) mg/dL Assessment and Plan Plan: 1 acute hypoxic respiratory failure: Combination of possible pneumonia not ruled out, influenza A, and acute on chronic heart failure. Patient to continue CAPD, DuoNeb treatments, Levaquin, Zosyn. acute coronary syndrome ruled out by cardiology. 2 fluid overload: acute on chronic systolic heart failure with severe impaired left ventricular function patient has been on medical management with his chronic kidney disease this is a contributing factor this point. Continue CAPD we'll consult nephrology and if patient continued to decline might require hemodialysis in the meanwhile continue medical management. 3 COPD: Consult with pulmonary medicine appreciated. Continue nebulizer treatments and oxygen. 4 influenza A: Tamiflu completed. 5 interstitial pneumonitis: Antibiotics completed 6 CHF exacerbation: Mostly systolic dysfunction with acute on a chronic heart failure continue diuretics continue current management. 7 elevated troponin: Cardiology consult appreciated. Acute coronary syndrome ruled out. 8 recent hip fracture: Post ORIF still in rehab at [facility]. [place] have been removed. 9 end-stage renal disease: On CAPD has been seen nephrology for long time we'll consult nephrology at this point. 10 A. fib with RVR, paroxysmal atrial fibrillation: Amiodarone adjusted by cardiology to 200 mg daily. Continue eliquis 5 mg twice daily. 11 type 2 diabetes: Continue NovoLog per sliding scales. 12 hyperlipidemia: On Lopid 6 in the milligrams daily. 13 chronic anemia: On multivitamins and iron also still on Aranesp on weekly basis. 14 severe GERD/GI prophylaxis: Patient remain on Protonix 40 mg daily. 15 chronic pain syndrome: On pain management patient is on a on tramadol 50 mg 4 times a day as needed. 16. Recurrent depression with loss of appetite. Remeron added at bedtime, continue Zoloft. 17. Acute lower GI bleeding most likely hemorrhoidal bleed. 18. Oropharyngeal candidiasis 19. Metabolic encephalopathy possibly related to uremia 20. Severe protein calorie malnutrition started on tube feedings through [facility]. Speech therapy is recommended dysphagia diet with nectar thick liquids and aspiration precautions as well. 21. Adrenal insufficiency. Hydrocortisone decreased to 50 mg IV every 8 hours started. 22. Diarrhea. Rule out C. difficile colitis. CODE STATUs: NO CODE PER PATIENT WISHES. Discharge plan: Return to [facility] most likely on Monday Impression and plan of care have been directed as dictated by the signing physician. Margot Dorado nurse practitioner acting as scribe for signing physician.
[2018-12-28 17:29] LABS: Glucose,Whole Blood 160 mg/dL (75-99)
[2018-12-28] MEDS: DARBEPOETIN ALFA 40 MCG/0.4 ML SYRINGE SQ SCH (18:17)
[2018-12-28 20:16] LABS: Glucose,Whole Blood 108 mg/dL (75-99)
[2018-12-29] MEDS: DIALYSIS (PERIT 1.5%) 2,500 ML 37.5 G/2,500 ML BAG INTRAPERIT SCH ×5 (00:05→19:57)
[2018-12-29] MEDS: CLOTRIMAZOLE TROCHE 10 MG TROCHE MUCOUS MEM SCH ×5 (00:07→22:27)
[2018-12-29 07:00] LABS: Glucose,Whole Blood 87 mg/dL (75-99)
[2018-12-29] MEDS: SODIUM CHLORIDE 0.9% 1,000 ML IV SCH (10:17)
[2018-12-29] MEDS: INSULIN ASPART (NovoLOG) 100 UNIT/ML VIAL SQ SCH ×4 (10:18→22:27)
[2018-12-29] MEDS: MULTIVITAMINS, THERA 1 EACH TAB PO SCH (10:28)
[2018-12-29] MEDS: AMIODARONE 200 MG TAB PO SCH (10:28)
[2018-12-29] MEDS: VELPHORO 500 MG PO SCH (10:28)
[2018-12-29] MEDS: ATORVASTATIN 40 MG TAB PO SCH (10:29)
[2018-12-29] MEDS: PANTOPRAZOLE 40 MG TABLET PO SCH (10:29)
[2018-12-29] MEDS: ENOXAPARIN 30 MG/0.3 ML SYRINGE SQ SCH (10:29)
[2018-12-29] MEDS: ATENOLOL 12.5 MG TAB PO SCH (10:30)
[2018-12-29] MEDS: FENOFIBRATE 160 MG TAB PO SCH (10:30)
[2018-12-29] MEDS: CALCIUM CARB-MAG CARB-FOLIC 1 EACH TAB PO SCH ×3 (10:30→18:40)
[2018-12-29] MEDS: INSULIN DETEMIR (LEVEMIR) 100 UNIT/ML SYR SQ SCH (10:31)
[2018-12-29] MEDS: HYDROCORTISONE SUCCINATE 100 MG/2 ML VIAL IV SCH (10:31)
[2018-12-29] MEDS: LIDOCAINE 5% PATCH TOPICAL SCH (10:33)
[2018-12-29] MEDS: SERTRALINE 25 MG TAB PO SCH (10:38)
[2018-12-29] MEDS: SEVELAMER 800 MG TAB PO SCH ×2 (10:38→21:34)
[2018-12-29] MEDS: MAG HYDROX/AL HYDROX/SIMETH 30 ML, LIDOCAINE VISCOUS 30 ML, diphenhydrAMINE ELIXIR 75 M... PO SCH ×12 (10:45→22:27)
--- NOTE | 2018-12-29 10:50 | P.PN ---
Subjective Progress Note Date: 12/29/18 73-year-old male who is known from [facility] was hospitalized last week with hip fracture post-ORIF who had severe lethargy and change in mental status after surgery was transferred to [facility] where was seen by neurology and evaluated and found to have severe encephalopathy mostly medication related medication were adjusted patient started to feel much better still have no weight bearing on the hip area was transferred to [facility] for rehab. Patient is doing CAPD 4 end-stage renal disease and has been doing well with it continue to decline over ROM the last 12 hours. 2 calling EMS with found to have significant hypoxia with the worsening congestion and cough productive dark phlegm along with significant weight gain and fluid retention. Ended up coming via EMS to demurs department at [facility] where was seen and evaluated his influenza A was positive ration found to be in quite bed fluid overload with pro-BNP was 85,000 patient chest x-ray showed sign of pneumonia as well he was started on Zosyn and Levaquin along with Tamiflu patient will be seen pulmonary and admitted to the hospital with above problem. 12/19: Patient is receiving CAPD managed by Dr. Wilkinson. The removed significant fluid last night. Chest x-ray was ordered this morning. The patient has been seen by pulmonary medicine for multifactorial dyspnea but doubt pneumonia but we 'll plan to continue antibiotics. Cardiology is following for heart failure and fluid overload. They have decreased amiodarone to 200 mg daily and also recommend starting eliquis 5 mg twice daily. Acute coronary syndrome ruled out. Echocardiogram reveals EF 25-30% with LA severely dilated, mild mitral regurgitation, mild tricuspid regurgitation, borderline pulmonary hypertension. 12/20: Patient states he is feeling better today with decreased shortness of breath. He remains in influenza isolation. Paul removed moved from his previous hip surgery done yesterday. He is continued on CAPD managed by Dr. Wilkinson. He has been afebrile, blood pressure 93/55, heart rate in the 70s and 80s, pulse ox 99% on 3 L nasal cannula. The chest x-ray from yesterday reveals increasing interstitial infiltrates and edema compared to last exam. This could be worsening heart failure. 12/21: Patient had low blood pressure this morning and dialysis fluid has been adjusted by nephrology. Atenolol was held this morning. Patient has been eating very little and agrees that he is depressed. Remeron added at bedtime. CODE STATUS clarified for DO NOT RESUSCITATE. PT and OT are following the patient and he is total assist with early fatigue. He remains afebrile, heart rate running in the 80s, pulse ox 97% on 2 L. White count 13.8, hemoglobin 10.8. Sodium 132, potassium 4.4, chloride 90, CO2 27, BUN 77 creatinine 8.29. Blood sugars run between 107 and 165. Albumin is 2.6. Anticipate discharge back to [facility] on Monday. 12/22: Patient continues to have low blood pressure this morning. Patient has not had CAPD at this time due to the low blood pressure. Dr. Wilkinson has CAPD on hold until systolic is greater than 100. Patient's appetite continues to be poor. Affect continues to be depressed. Remeron was added. Patient remained afebrile, heart rate running in the 80s, pulse ox around 96-97% on 2 L. WAC 19.8, hemoglobin 11.3, sodium 132 potassium 4.6, chloride 90, BUN 77 creatinine 8.21. Lactic acid 1.8 12/23: Patient still has poor appetite complaining of sores in mouth. Upon examination thrush is present. Patient continues to be hypotensive blood pressure today 90/52 with a heart rate of 71. Affect continues to be depressed. Patient remains afebrile. Pulse ox 93% on room air. Blood sugar is running between 94 and 110. Family is at the bedside. 12/24: There was an A=Team : The patient over the weekend for acute bleeding with few episodes of bright red blood per rectum and altered mental status, temp greater than 100 and patient was subsequently transferred to the intensive care unit. He received a fluid bolus but has not been on vasopressors. Blood pressure this morning is 97/58, temperature 99.3, pulse ox 97% on 3 L nasal cannula, heart rate running in the 60s and 70s. White count is 11.3, hemoglobin 9.5. Sodium is improved to 133, potassium 3.5, chloride 93, CO2 27. BUN 75 and creatinine 7.15. Peritoneal fluid Gram stain hasn't finalized with no growth. Blood culture showing no growth and group A strep culture is finalized with no growth. Triple lumen was placed by Dr. Willis yesterday. Chest x-ray this morning reveals congestive heart failure. Right central line within the right atrium or within the proximal inferior vena cava. He is continued on CAPD. Patient remains very lethargic. He did have a bowel movement last night and this morning. 12/25: Patient remains lethargic, little oral intake, speech therapy has evaluated and recommended dysphagia diet with nectar thick liquids and aspiration precautions. Patient is also on tube feedings via [employer]. No significant change from yesterday. He continues on CAPD managed by Dr. Chun. Discussed with Dr. Chun and decision made to start hydrocortisone 100 mg every 8 hours for the next 2 days. Zosyn was discontinued by Dr. Willis as he completed course. He was given a fluid bolus of 500 ML's. 12/26: Patient remains in the intensive care unit. He is on tube feedings but apparently did not get any oral feeding last night. He seems to be improving with Solu-Cortef and this will be decreased to 50 mg IV every 8 hours. We will change managing that was ordered by pulmonary medicine to when necessary for blood pressure. He has been afebrile, blood pressure 133/77, pulse 79, pulse ox 97% on 3 L nasal cannula. White count is normal at 5.3, hemoglobin 9.4, BUN 65 creatinine 6.71. Capillary blood glucose running between 144-199. Levemir will be added daily. He is also on NovoLog scale. 12/27: The patient remains in intensive care unit and waning for [facility] since yesterday. Patient is found sitting up in a recliner and appears to be comfortable. He is more interactive today. He ate is breakfast this morning. He has friends and family at the bedside. Repeat lab work shows a white count of 7.4, hemoglobin 9.7, platelet count 233. Sodium 132, potassium 3.4, chloride 94, CO2 26, BUN 63 and creatinine 6.26. Capillary blood glucose running between 116 and 161. Patient is plan for return to [facility] most likely this will occur on Monday. 12/28: Patient has been transferred to the [facility] floor. He has been afebrile. Heart rate in the 60s and 70s, blood pressure 143/71, pulse ox 95% on room air. Repeat lab work shows a white count of 8.2, hemoglobin 10.1, platelet count 276. Sodium 134, potassium 4.0, chloride 95, CO2 27, BUN 69 creatinine 5.88. Blood sugars are running 147 through 178. The patient is continued on CAPD. Patient is not eating much today. Nurse states the patient had 5 bowel movements this morning and stool will be sent for C. difficile toxin. Patient is noted to have a stage II decubitus on coccyx. Anticipate return to [facility] on Monday. 12/29: C. difficile toxin came back negative. He states that he is still having a lot of stools. Nursing states that he is having smaller amounts and is starting to form. He has been afebrile, blood pressure 116/59, pulse ox 93% on room air, heart rate running in the 70s and 80s. He is continued on Solu- Cortef 50 mg IV daily and manage drain is as needed.. Patient is continued on CAPD. Review of Systems CONSTITUTIONAL: No fever no chills. Reports generalized weakness, reports malaise EYES: No icterus sclerae, no conjunctivitis. EARS, NOSE, MOUTH, THROAT, and FACE: No sore throat, lymphadenopathy, carotid bruits or deformity. RESPIRATORY: Positive dyspnea and shortness of breath. CARDIOVASCULAR: Positive PND orthopnea palpitation. GASTROINTESTINAL: Abdominal distention and ascites from his CAPD. Reports continued diarrhea GENITOURINARY: Negative for Hematuria or UTI, no kidney stones. INTEGUMENT/BREAST: Possible right hip pain. HEMATOLOGIC/LYMPHATIC: Negative for bleed or purpura. MUSCULOSKELTAL: Negative for Myalgia or arthralgia. NEURLOGICAL: No LOC, Sz or syncope, blurred vision dizziness or abnormality. BEHAVIORAL/PSYCH: Reports depression reports lack of appetite. ENDOCRINE: Negative. Objective - Vital Signs Vital signs: Vital Signs Temp 98.7 F 12/29/18 06:00 Pulse 79 12/29/18 06:00 Resp 18 12/29/18 06:00 BP 116/59 12/29/18 06:00 Pulse Ox 93 L 12/29/18 06:00 Intake & Output 12/28/18 12/29/18 12/29/18 18:59 06:59 18:59 Intake Total 230 Output Total 0 3 Balance 230 -3 Weight 59.8 kg Intake: IV 80 0.9% Normal Saline 80 Oral 150 Output: Urine 0 Stool 3 Other: Voiding Method Diaper CAPD # Voids 0 2 # Bowel Movements 1 1 - Exam General Appearance: Alert, thin, cooperative, he seems older than his age. No respiratory distress noted. Patient in bed. Neck HEENT: Supple, no lymphadenopathy, no thyroid enlargement, no carotid bruits. Lungs: Decreased breath some bilateral fine rhonchi positive mild crackles in the bases specially the right side with mild inspiratory expiratory wheezes as well. Chest Wall: Chest wall normal expansion with deep inspiration no tenderness and no deformity was found on exam, no costochondral pain or discomfort. Heart: Irregular rhythm and rate S1,S2 +S3, +5 cm JVD. Back: Symmetric, no curvature, ROM normal, no CVA tenderness. Abdomen: Soft, positive bowel sounds, CAPD fluid Extremities: Right side incision looks fine. Pulses: 2+ and symmetric. Skin: Skin color, texture, tugor normal, no rashes or lesions. Neurologic: Lethargic, oriented 3, no focal neuro deficit. - Labs CBC & Chem 7: 12/28/18 05:16 12/28/18 05:16 Labs: Abnormal Lab Results - Last 24 Hours (Table) 12/28/18 12/28/18 12/28/18 Range/Units 11:02 17:26 20:14 POC Glucose (mg/dL) 147 H 160 H 108 H (75-99) mg/dL Assessment and Plan Plan: 1 acute hypoxic respiratory failure: Combination of possible pneumonia not ruled out, influenza A, and acute on chronic heart failure. Patient to continue CAPD, DuoNeb treatments, Levaquin, Zosyn. acute coronary syndrome ruled out by cardiology. 2 fluid overload: acute on chronic systolic heart failure with severe impaired left ventricular function patient has been on medical management with his chronic kidney disease this is a contributing factor this point. Continue CAPD we'll consult nephrology and if patient continued to decline might require hemodialysis in the meanwhile continue medical management. 3 COPD: Consult with pulmonary medicine appreciated. Continue nebulizer treatments and oxygen. 4 influenza A: Tamiflu completed. 5 interstitial pneumonitis: Antibiotics completed 6 CHF exacerbation: Mostly systolic dysfunction with acute on a chronic heart failure continue diuretics continue current management. 7 elevated troponin: Cardiology consult appreciated. Acute coronary syndrome ruled out. 8 recent hip fracture: Post ORIF still in rehab at [facility]. [place] have been removed. 9 end-stage renal disease: On CAPD has been seen nephrology for long time we'll consult nephrology at this point. 10 A. fib with RVR, paroxysmal atrial fibrillation: Amiodarone adjusted by cardiology to 200 mg daily. Continue eliquis 5 mg twice daily. 11 type 2 diabetes: Continue NovoLog per sliding scales. 12 hyperlipidemia: On Lopid 6 in the milligrams daily. 13 chronic anemia: On multivitamins and iron also still on Aranesp on weekly basis. 14 severe GERD/GI prophylaxis: Patient remain on Protonix 40 mg daily. 15 chronic pain syndrome: On pain management patient is on a on tramadol 50 mg 4 times a day as needed. 16. Recurrent depression with loss of appetite. Remeron added at bedtime, continue Zoloft. 17. Acute lower GI bleeding most likely hemorrhoidal bleed. 18. Oropharyngeal candidiasis 19. Metabolic encephalopathy possibly related to uremia 20. Severe protein calorie malnutrition started on tube feedings through [employer], discontinued. Speech therapy is recommended dysphagia diet with nectar thick liquids and aspiration precautions as well. 21. Adrenal insufficiency. Hydrocortisone decreased to 50 mg IV daily. 22. Diarrhea. Rule out C. difficile colitis. CODE STATUs: NO CODE PER PATIENT WISHES. Discharge plan: Return to [facility] most likely on Monday Impression and plan of care have been directed as dictated by the signing physician. Margot Dorado nurse practitioner acting as scribe for signing physician.
[2018-12-29] MEDS: GENTAMICIN 0.1% CREAM 15 GM TUBE TOPICAL SCH (10:56)
[2018-12-29 11:40] LABS: Glucose,Whole Blood 119 mg/dL (75-99)
--- NOTE | 2018-12-29 13:33 | P.PN ---
Subjective Progress Note Date: 12/29/18 Seen and examined for the follow-up of ESRD on peritoneal dialysis. Objective - Vital Signs Vital signs: Vital Signs Temp 98.9 F 12/29/18 12:09 Pulse 80 12/29/18 12:09 Resp 17 12/29/18 12:09 BP 118/62 12/29/18 12:09 Pulse Ox 94 L 12/29/18 12:09 Intake & Output 12/28/18 12/29/18 12/29/18 18:59 06:59 18:59 Intake Total 230 Output Total 0 3 3 Balance 230 -3 -3 Weight 59.8 kg Intake: IV 80 0.9% Normal Saline 80 Oral 150 Output: Urine 0 Stool 3 3 Other: Voiding Method Diaper Diaper CAPD CAPD # Voids 0 2 # Bowel Movements 1 1 - Exam No acute distress S1-S2 heard PD catheter No edema - Labs CBC & Chem 7: 12/28/18 05:16 12/28/18 05:16 Labs: Abnormal Lab Results - Last 24 Hours (Table) 12/28/18 12/28/18 12/29/18 Range/Units 17:26 20:14 11:38 POC Glucose (mg/dL) 160 H 108 H 119 H (75-99) mg/dL Assessment and Plan Assessment: #1 ESRD on peritoneal dialysis. #2 influenza A virus infection #3 CHF with systolic dysfunction EF of 25% #4 chronic hypotension related to cardiomyopathy on midodrine #5 metabolic bone disease with ESRD #6 anemia with ESRD Plan: #1 continue with peritoneal dialysis. #2 supportive care.
[2018-12-29] MEDS: FLUCONAZOLE IN NACL,ISO-OSM 100 MG in SALINE 1 50ML.BAG IVPB SCH (14:41)
[2018-12-29 17:14] LABS: Glucose,Whole Blood 120 mg/dL (75-99)
[2018-12-29] MEDS: MIDODRINE 5 MG TAB PO SCH (19:06)
[2018-12-29 20:28] LABS: Glucose,Whole Blood 221 mg/dL (75-99)
[2018-12-29 22:17] LABS: Glucose,Whole Blood 178 mg/dL (75-99)
[2018-12-30] MEDS: DIALYSIS (PERIT 1.5%) 2,500 ML 37.5 G/2,500 ML BAG INTRAPERIT SCH ×5 (00:05→20:51)
[2018-12-30] MEDS: CLOTRIMAZOLE TROCHE 10 MG TROCHE MUCOUS MEM SCH ×5 (00:05→20:51)
[2018-12-30 06:53] LABS: Anisocytosis Slight; HCT 33.6 % (39.0-53.0); HGB 10.5 gm/dL (13.0-17.5); Hypochromasia Moderate; MCH 28.1 pg (25.0-35.0); MCHC 31.4 g/dL (31.0-37.0); MCV 89.5 fL (80.0-100.0); Mean Platelet Volume 6.9; Platelet Count 256 k/uL (150-450); Poikilocytosis Slight; RBC 3.76 m/uL (4.30-5.90); RDW 18.3 % (11.5-15.5); WBC 6.5 k/uL (3.8-10.6)
[2018-12-30 07:04] LABS: Albumin 2.4 g/dL (3.5-5.0); Calcium 8.3 mg/dL (8.4-10.2); Potassium 3.5 mmol/L (3.5-5.1); Total Bilirubin 0.6 mg/dL (0.2-1.3); Total Protein 5.1 g/dL (6.3-8.2)
[2018-12-30 07:12] LABS: Glucose,Whole Blood 82 mg/dL (75-99)
[2018-12-30] MEDS: INSULIN ASPART (NovoLOG) 100 UNIT/ML VIAL SQ SCH ×4 (09:24→21:02)
[2018-12-30] MEDS: LIDOCAINE 5% PATCH TOPICAL SCH (09:29)
[2018-12-30] MEDS: MAG HYDROX/AL HYDROX/SIMETH 30 ML, LIDOCAINE VISCOUS 30 ML, diphenhydrAMINE ELIXIR 75 M... PO SCH ×12 (09:29→21:02)
[2018-12-30] MEDS: ATORVASTATIN 40 MG TAB PO SCH (09:29)
[2018-12-30] MEDS: PANTOPRAZOLE 40 MG TABLET PO SCH (09:29)
[2018-12-30] MEDS: AMIODARONE 200 MG TAB PO SCH (09:29)
[2018-12-30] MEDS: MULTIVITAMINS, THERA 1 EACH TAB PO SCH (09:29)
[2018-12-30] MEDS: ENOXAPARIN 30 MG/0.3 ML SYRINGE SQ SCH (09:30)
[2018-12-30] MEDS: SEVELAMER 800 MG TAB PO SCH ×3 (09:31→21:02)
[2018-12-30] MEDS: HYDROCORTISONE SUCCINATE 100 MG/2 ML VIAL IV SCH (09:31)
[2018-12-30] MEDS: ATENOLOL 12.5 MG TAB PO SCH (09:32)
[2018-12-30] MEDS: SERTRALINE 25 MG TAB PO SCH (09:32)
[2018-12-30] MEDS: FENOFIBRATE 160 MG TAB PO SCH (09:33)
[2018-12-30] MEDS: CALCIUM CARB-MAG CARB-FOLIC 1 EACH TAB PO SCH ×3 (09:33→16:31)
[2018-12-30] MEDS: INSULIN DETEMIR (LEVEMIR) 100 UNIT/ML SYR SQ SCH (09:33)
[2018-12-30] MEDS: VELPHORO 500 MG PO SCH (09:33)
[2018-12-30] MEDS: SODIUM CHLORIDE 0.9% 1,000 ML IV SCH (09:34)
[2018-12-30] MEDS: GENTAMICIN 0.1% CREAM 15 GM TUBE TOPICAL SCH (09:49)
--- NOTE | 2018-12-30 11:20 | P.PN ---
Subjective Progress Note Date: 12/30/18 73-year-old male who is known from [facility] was hospitalized last week with hip fracture post-ORIF who had severe lethargy and change in mental status after surgery was transferred to [facility] where was seen by neurology and evaluated and found to have severe encephalopathy mostly medication related medication were adjusted patient started to feel much better still have no weight bearing on the hip area was transferred to [facility] for rehab. Patient is doing CAPD 4 end-stage renal disease and has been doing well with it continue to decline over ROM the last 12 hours. 2 calling EMS with found to have significant hypoxia with the worsening congestion and cough productive dark phlegm along with significant weight gain and fluid retention. Ended up coming via EMS to demurs department at [facility] where was seen and evaluated his influenza A was positive ration found to be in quite bed fluid overload with pro-BNP was 85,000 patient chest x-ray showed sign of pneumonia as well he was started on Zosyn and Levaquin along with Tamiflu patient will be seen pulmonary and admitted to the hospital with above problem. 12/19: Patient is receiving CAPD managed by Dr. Wilkinson. The removed significant fluid last night. Chest x-ray was ordered this morning. The patient has been seen by pulmonary medicine for multifactorial dyspnea but doubt pneumonia but we 'll plan to continue antibiotics. Cardiology is following for heart failure and fluid overload. They have decreased amiodarone to 200 mg daily and also recommend starting eliquis 5 mg twice daily. Acute coronary syndrome ruled out. Echocardiogram reveals EF 25-30% with LA severely dilated, mild mitral regurgitation, mild tricuspid regurgitation, borderline pulmonary hypertension. 12/20: Patient states he is feeling better today with decreased shortness of breath. He remains in influenza isolation. Canby removed moved from his previous hip surgery done yesterday. He is continued on CAPD managed by Dr. Wilkinson. He has been afebrile, blood pressure 93/55, heart rate in the 70s and 80s, pulse ox 99% on 3 L nasal cannula. The chest x-ray from yesterday reveals increasing interstitial infiltrates and edema compared to last exam. This could be worsening heart failure. 12/21: Patient had low blood pressure this morning and dialysis fluid has been adjusted by nephrology. Atenolol was held this morning. Patient has been eating very little and agrees that he is depressed. Remeron added at bedtime. CODE STATUS clarified for DO NOT RESUSCITATE. PT and OT are following the patient and he is total assist with early fatigue. He remains afebrile, heart rate running in the 80s, pulse ox 97% on 2 L. White count 13.8, hemoglobin 10.8. Sodium 132, potassium 4.4, chloride 90, CO2 27, BUN 77 creatinine 8.29. Blood sugars run between 107 and 165. Albumin is 2.6. Anticipate discharge back to [facility] on Monday. 12/22: Patient continues to have low blood pressure this morning. Patient has not had CAPD at this time due to the low blood pressure. Dr. Wilkinson has CAPD on hold until systolic is greater than 100. Patient's appetite continues to be poor. Affect continues to be depressed. Remeron was added. Patient remained afebrile, heart rate running in the 80s, pulse ox around 96-97% on 2 L. WAC 19.8, hemoglobin 11.3, sodium 132 potassium 4.6, chloride 90, BUN 77 creatinine 8.21. Lactic acid 1.8 12/23: Patient still has poor appetite complaining of sores in mouth. Upon examination thrush is present. Patient continues to be hypotensive blood pressure today 90/52 with a heart rate of 71. Affect continues to be depressed. Patient remains afebrile. Pulse ox 93% on room air. Blood sugar is running between 94 and 110. Family is at the bedside. 12/24: There was an A=Team : The patient over the weekend for acute bleeding with few episodes of bright red blood per rectum and altered mental status, temp greater than 100 and patient was subsequently transferred to the intensive care unit. He received a fluid bolus but has not been on vasopressors. Blood pressure this morning is 97/58, temperature 99.3, pulse ox 97% on 3 L nasal cannula, heart rate running in the 60s and 70s. White count is 11.3, hemoglobin 9.5. Sodium is improved to 133, potassium 3.5, chloride 93, CO2 27. BUN 75 and creatinine 7.15. Peritoneal fluid Gram stain hasn't finalized with no growth. Blood culture showing no growth and group A strep culture is finalized with no growth. Triple lumen was placed by Dr. Willis yesterday. Chest x-ray this morning reveals congestive heart failure. Right central line within the right atrium or within the proximal inferior vena cava. He is continued on CAPD. Patient remains very lethargic. He did have a bowel movement last night and this morning. 12/25: Patient remains lethargic, little oral intake, speech therapy has evaluated and recommended dysphagia diet with nectar thick liquids and aspiration precautions. Patient is also on tube feedings via [facility]. No significant change from yesterday. He continues on CAPD managed by Dr. Chun. Discussed with Dr. Chun and decision made to start hydrocortisone 100 mg every 8 hours for the next 2 days. Zosyn was discontinued by Dr. Willis as he completed course. He was given a fluid bolus of 500 ML's. 12/26: Patient remains in the intensive care unit. He is on tube feedings but apparently did not get any oral feeding last night. He seems to be improving with Solu-Cortef and this will be decreased to 50 mg IV every 8 hours. We will change managing that was ordered by pulmonary medicine to when necessary for blood pressure. He has been afebrile, blood pressure 133/77, pulse 79, pulse ox 97% on 3 L nasal cannula. White count is normal at 5.3, hemoglobin 9.4, BUN 65 creatinine 6.71. Capillary blood glucose running between 144-199. Levemir will be added daily. He is also on NovoLog scale. 12/27: The patient remains in intensive care unit and waning for [facility] since yesterday. Patient is found sitting up in a recliner and appears to be comfortable. He is more interactive today. He ate is breakfast this morning. He has friends and family at the bedside. Repeat lab work shows a white count of 7.4, hemoglobin 9.7, platelet count 233. Sodium 132, potassium 3.4, chloride 94, CO2 26, BUN 63 and creatinine 6.26. Capillary blood glucose running between 116 and 161. Patient is plan for return to [facility] most likely this will occur on Monday. 12/28: Patient has been transferred to the [facility] floor. He has been afebrile. Heart rate in the 60s and 70s, blood pressure 143/71, pulse ox 95% on room air. Repeat lab work shows a white count of 8.2, hemoglobin 10.1, platelet count 276. Sodium 134, potassium 4.0, chloride 95, CO2 27, BUN 69 creatinine 5.88. Blood sugars are running 147 through 178. The patient is continued on CAPD. Patient is not eating much today. Nurse states the patient had 5 bowel movements this morning and stool will be sent for C. difficile toxin. Patient is noted to have a stage II decubitus on coccyx. [facility] 12/29: C. difficile toxin came back negative. He states that he is still having a lot of stools. Nursing states that he is having smaller amounts and is starting to form. He has been afebrile, blood pressure 116/59, pulse ox 93% on room air, heart rate running in the 70s and 80s. He is continued on Solu- Cortef 50 mg IV daily and manage drain is as needed.. Patient is continued on CAPD. 12/30: Patient remains afebrile, pulse 6670s, blood pressure 124/61, pulse ox 94% on room air. White count is normal 6.5, hemoglobin 10.5, BUN 17 creatinine 6.24. Sodium 135, potassium 3.5, chloride 95, CO2 31. Calcium 8.3. Patient is continued on CAPD. He's had no further diarrhea and stools are formed. Patient continues to have sores in his mouth despite use of Isordil extra O' Hernandez and IV Diflucan. We will add in Xylocaine gel. Patient continues to be quite lethargic and sleeping all the time. Patient does not have much energy. Review of Systems CONSTITUTIONAL: No fever no chills. Reports generalized weakness, reports malaise EYES: No icterus sclerae, no conjunctivitis. EARS, NOSE, MOUTH, THROAT, and FACE: No sore throat, lymphadenopathy, carotid bruits or deformity. RESPIRATORY: Positive dyspnea and shortness of breath. CARDIOVASCULAR: Positive PND orthopnea palpitation. GASTROINTESTINAL: Abdominal distention and ascites from his CAPD. Denies diarrhea GENITOURINARY: Negative for Hematuria or UTI, no kidney stones. INTEGUMENT/BREAST: Possible right hip pain. HEMATOLOGIC/LYMPHATIC: Negative for bleed or purpura. MUSCULOSKELTAL: Negative for Myalgia or arthralgia. NEURLOGICAL: No LOC, Sz or syncope, blurred vision dizziness or abnormality. BEHAVIORAL/PSYCH: Reports depression reports lack of appetite. ENDOCRINE: Negative. Objective - Vital Signs Vital signs: Vital Signs Temp 98.9 F 12/30/18 06:00 Pulse 73 12/30/18 06:00 Resp 16 12/30/18 06:00 BP 124/61 12/30/18 06:00 Pulse Ox 94 L 12/30/18 06:00 Intake & Output 12/29/18 12/30/18 12/30/18 18:59 06:59 18:59 Intake Total 210 420 Output Total 3 Balance 207 420 Weight 63.5 kg Intake: Intake, IV Titration 210 320 Amount Fluconazole in NaCl,Iso- 50 Osm 100 mg In Saline 1 50ml.bag @ 50 mls/hr IVPB Q24H [facility] Rx#:[id number] Sodium Chloride 0.9% 1, 160 320 000 ml @ 20 mls/hr IV . Q24H [facility] Rx#:[id number] Oral 100 Output: Stool 3 Other: Voiding Method Diaper Diaper CAPD CAPD # Bowel Movements 1 - Exam General Appearance: Alert, thin, cooperative, he seems older than his age. No respiratory distress noted. Patient in bed, resting, generalized weakness noted. Neck HEENT: Supple, no lymphadenopathy, no thyroid enlargement, no carotid bruits. Lungs: Decreased breath some bilateral fine rhonchi positive mild crackles in the bases specially the right side with mild inspiratory expiratory wheezes as well. Chest Wall: Chest wall normal expansion with deep inspiration no tenderness and no deformity was found on exam, no costochondral pain or discomfort. Heart: Irregular rhythm and rate S1,S2 +S3, +5 cm JVD. Back: Symmetric, no curvature, ROM normal, no CVA tenderness. Abdomen: Soft, positive bowel sounds, CAPD fluid Extremities: Right side incision looks fine. Pulses: 2+ and symmetric. Skin: Skin color, texture, tugor normal, no rashes or lesions. Neurologic: Lethargic, oriented 3, no focal neuro deficit. - Labs CBC & Chem 7: 12/30/18 06:29 12/30/18 06:29 Labs: Abnormal Lab Results - Last 24 Hours (Table) 12/29/18 12/29/18 12/29/18 Range/Units 11:38 17:12 20:27 RBC (4.30-5.90) m/uL Hgb (13.0-17.5) gm/dL Hct (39.0-53.0) % RDW (11.5-15.5) % Sodium (137-145) mmol/L Chloride (98-107) mmol/L Carbon Dioxide (22-30) mmol/L BUN (9-20) mg/dL Creatinine (0.66-1.25) mg/dL Glucose (74-99) mg/dL POC Glucose (mg/dL) 119 H 120 H 221 H (75-99) mg/dL Calcium (8.4-10.2) mg/dL Total Protein (6.3-8.2) g/dL Albumin (3.5-5.0) g/dL 12/29/18 12/30/18 12/30/18 Range/Units 22:15 06:29 06:29 RBC 3.76 L (4.30-5.90) m/uL Hgb 10.5 L (13.0-17.5) gm/dL Hct 33.6 L (39.0-53.0) % RDW 18.3 H (11.5-15.5) % Sodium 135 L (137-145) mmol/L Chloride 95 L (98-107) mmol/L Carbon Dioxide 31 H (22-30) mmol/L BUN 70 H (9-20) mg/dL Creatinine 6.24 H (0.66-1.25) mg/dL Glucose 72 L (74-99) mg/dL POC Glucose (mg/dL) 178 H (75-99) mg/dL Calcium 8.3 L (8.4-10.2) mg/dL Total Protein 5.1 L (6.3-8.2) g/dL Albumin 2.4 L (3.5-5.0) g/dL Assessment and Plan Plan: 1 acute hypoxic respiratory failure: Combination of possible pneumonia not ruled out, influenza A, and acute on chronic heart failure. Patient to continue CAPD, DuoNeb treatments, Levaquin, Zosyn. acute coronary syndrome ruled out by cardiology. 2 fluid overload: acute on chronic systolic heart failure with severe impaired left ventricular function patient has been on medical management with his chronic kidney disease this is a contributing factor this point. Continue CAPD we'll consult nephrology and if patient continued to decline might require hemodialysis in the meanwhile continue medical management. 3 COPD: Consult with pulmonary medicine appreciated. Continue nebulizer treatments and oxygen. 4 influenza A: Tamiflu completed. 5 interstitial pneumonitis: Antibiotics completed 6 CHF exacerbation: Mostly systolic dysfunction with acute on a chronic heart failure continue diuretics continue current management. 7 elevated troponin: Cardiology consult appreciated. Acute coronary syndrome ruled out. 8 recent hip fracture: Post ORIF still in rehab at [facility]. Canby have been removed. 9 end-stage renal disease: On CAPD has been seen nephrology for long time we'll consult nephrology at this point. 10 A. fib with RVR, paroxysmal atrial fibrillation: Amiodarone adjusted by cardiology to 200 mg daily. Continue eliquis 5 mg twice daily. 11 type 2 diabetes: Continue NovoLog per sliding scales. 12 hyperlipidemia: On Lopid 6 in the milligrams daily. 13 chronic anemia: On multivitamins and iron also still on Aranesp on weekly basis. 14 severe GERD/GI prophylaxis: Patient remain on Protonix 40 mg daily. 15 chronic pain syndrome: On pain management patient is on a on tramadol 50 mg 4 times a day as needed. 16. Recurrent depression with loss of appetite. Remeron added at bedtime, continue Zoloft. 17. Acute lower GI bleeding most likely hemorrhoidal bleed. 18. Oropharyngeal candidiasis 19. Metabolic encephalopathy possibly related to uremia 20. Severe protein calorie malnutrition started on tube feedings through [facility], discontinued. Speech therapy is recommended dysphagia diet with nectar thick liquids and aspiration precautions as well. 21. Adrenal insufficiency. Hydrocortisone decreased to 50 mg IV daily. 22. Diarrhea. Ruled out C. difficile colitis. CODE STATUs: NO CODE PER PATIENT WISHES. Discharge plan: Return to [facility] most likely on Monday Impression and plan of care have been directed as dictated by the signing physician. Margot Dorado nurse practitioner acting as scribe for signing physician.
[2018-12-30 11:54] LABS: Glucose,Whole Blood 175 mg/dL (75-99)
[2018-12-30] MEDS: FLUCONAZOLE IN NACL,ISO-OSM 100 MG in SALINE 1 50ML.BAG IVPB SCH (12:30)
[2018-12-30] MEDS: LIDOCAINE VISCOUS 2% 15 ML CUP MUCOUS MEM SCH ×2 (12:46→21:03)
--- NOTE | 2018-12-30 14:14 | P.PN ---
Subjective Progress Note Date: 12/30/18 Seen and examined for the follow-up of ESRD on peritoneal dialysis. Objective - Vital Signs Vital signs: Vital Signs Temp 98.9 F 12/30/18 11:58 Pulse 83 12/30/18 11:58 Resp 17 12/30/18 11:58 BP 130/63 12/30/18 11:58 Pulse Ox 94 L 12/30/18 11:58 Intake & Output 12/29/18 12/30/18 12/30/18 18:59 06:59 18:59 Intake Total 210 420 260 Output Total 3 3 Balance 207 420 257 Weight 63.5 kg Intake: IV 160 0.9% Normal Saline 160 Intake, IV Titration 210 320 100 Amount Fluconazole in NaCl,Iso- 50 100 Osm 100 mg In Saline 1 50ml.bag @ 50 mls/hr IVPB Q24H [facility] Rx#:[id number] Sodium Chloride 0.9% 1, 160 320 000 ml @ 20 mls/hr IV . Q24H [facility] Rx#:[id number] Oral 100 Output: Stool 3 3 Other: Voiding Method Diaper Diaper Diaper CAPD CAPD CAPD # Bowel Movements 1 - Exam No acute distress S1-S2 heard PD catheter No edema - Labs CBC & Chem 7: 12/30/18 06:29 12/30/18 06:29 Labs: Abnormal Lab Results - Last 24 Hours (Table) 12/29/18 12/29/18 12/29/18 Range/Units 17:12 20:27 22:15 RBC (4.30-5.90) m/uL Hgb (13.0-17.5) gm/dL Hct (39.0-53.0) % RDW (11.5-15.5) % Sodium (137-145) mmol/L Chloride (98-107) mmol/L Carbon Dioxide (22-30) mmol/L BUN (9-20) mg/dL Creatinine (0.66-1.25) mg/dL Glucose (74-99) mg/dL POC Glucose (mg/dL) 120 H 221 H 178 H (75-99) mg/dL Calcium (8.4-10.2) mg/dL Total Protein (6.3-8.2) g/dL Albumin (3.5-5.0) g/dL 12/30/18 12/30/18 12/30/18 Range/Units 06:29 06:29 11:53 RBC 3.76 L (4.30-5.90) m/uL Hgb 10.5 L (13.0-17.5) gm/dL Hct 33.6 L (39.0-53.0) % RDW 18.3 H (11.5-15.5) % Sodium 135 L (137-145) mmol/L Chloride 95 L (98-107) mmol/L Carbon Dioxide 31 H (22-30) mmol/L BUN 70 H (9-20) mg/dL Creatinine 6.24 H (0.66-1.25) mg/dL Glucose 72 L (74-99) mg/dL POC Glucose (mg/dL) 175 H (75-99) mg/dL Calcium 8.3 L (8.4-10.2) mg/dL Total Protein 5.1 L (6.3-8.2) g/dL Albumin 2.4 L (3.5-5.0) g/dL Assessment and Plan Assessment: #1 ESRD on peritoneal dialysis. #2 influenza A virus infection #3 CHF with systolic dysfunction EF of 25% #4 chronic hypotension related to cardiomyopathy on midodrine #5 metabolic bone disease with ESRD #6 anemia with ESRD Plan: #1 continue with peritoneal dialysis. #2 supportive care.
[2018-12-30 17:26] LABS: Glucose,Whole Blood 189 mg/dL (75-99)
[2018-12-30 20:36] LABS: Glucose,Whole Blood 140 mg/dL (75-99)
[2018-12-30] MEDS: Acetaminophen-Codeine 300-30mg TAB PO PRN (20:50)
[2018-12-31] MEDS: DIALYSIS (PERIT 1.5%) 2,500 ML 37.5 G/2,500 ML BAG INTRAPERIT SCH ×5 (01:17→19:39)
[2018-12-31] MEDS: CLOTRIMAZOLE TROCHE 10 MG TROCHE MUCOUS MEM SCH ×5 (01:18→19:51)
[2018-12-31 07:01] LABS: Glucose,Whole Blood 94 mg/dL (75-99)
[2018-12-31] MEDS: LIDOCAINE VISCOUS 2% 15 ML CUP MUCOUS MEM SCH ×3 (08:11→21:27)
[2018-12-31] MEDS: MAG HYDROX/AL HYDROX/SIMETH 30 ML, LIDOCAINE VISCOUS 30 ML, diphenhydrAMINE ELIXIR 75 M... PO SCH ×12 (08:12→21:27)
[2018-12-31] MEDS: INSULIN ASPART (NovoLOG) 100 UNIT/ML VIAL SQ SCH ×4 (08:15→21:27)
[2018-12-31] MEDS: CALCIUM CARB-MAG CARB-FOLIC 1 EACH TAB PO SCH ×3 (08:15→16:51)
[2018-12-31] MEDS: AMIODARONE 200 MG TAB PO SCH (08:16)
[2018-12-31] MEDS: ATENOLOL 12.5 MG TAB PO SCH (08:16)
[2018-12-31] MEDS: ENOXAPARIN 30 MG/0.3 ML SYRINGE SQ SCH (08:17)
[2018-12-31] MEDS: ATORVASTATIN 40 MG TAB PO SCH (08:17)
[2018-12-31] MEDS: GENTAMICIN 0.1% CREAM 15 GM TUBE TOPICAL SCH (08:17)
[2018-12-31] MEDS: HYDROCORTISONE SUCCINATE 100 MG/2 ML VIAL IV SCH (08:18)
[2018-12-31] MEDS: INSULIN DETEMIR (LEVEMIR) 100 UNIT/ML SYR SQ SCH (08:18)
[2018-12-31] MEDS: LIDOCAINE 5% PATCH TOPICAL SCH (08:18)
[2018-12-31] MEDS: SERTRALINE 25 MG TAB PO SCH (08:19)
[2018-12-31] MEDS: PANTOPRAZOLE 40 MG TABLET PO SCH (08:19)
[2018-12-31] MEDS: SEVELAMER 800 MG TAB PO SCH ×2 (08:19→21:29)
[2018-12-31] MEDS: VELPHORO 500 MG PO SCH (08:20)
[2018-12-31] MEDS: MULTIVITAMINS, THERA 1 EACH TAB PO SCH (08:22)
[2018-12-31 09:13] LABS: Calcium 8.3 mg/dL (8.4-10.2)
[2018-12-31 11:54] LABS: Glucose,Whole Blood 143 mg/dL (75-99)
--- NOTE | 2018-12-31 12:26 | P.PN ---
Subjective Progress Note Date: 12/31/18 73-year-old male who is known from [facility] was hospitalized last week with hip fracture post-ORIF who had severe lethargy and change in mental status after surgery was transferred to [facility] where was seen by neurology and evaluated and found to have severe encephalopathy mostly medication related medication were adjusted patient started to feel much better still have no weight bearing on the hip area was transferred to [facility] for rehab. Patient is doing CAPD 4 end-stage renal disease and has been doing well with it continue to decline over ROM the last 12 hours. 2 calling EMS with found to have significant hypoxia with the worsening congestion and cough productive dark phlegm along with significant weight gain and fluid retention. Ended up coming via EMS to demurs department at [facility] where was seen and evaluated his influenza A was positive ration found to be in quite bed fluid overload with pro-BNP was 85,000 patient chest x-ray showed sign of pneumonia as well he was started on Zosyn and Levaquin along with Tamiflu patient will be seen pulmonary and admitted to the hospital with above problem. 12/19: Patient is receiving CAPD managed by Dr. Wilkinson. The removed significant fluid last night. Chest x-ray was ordered this morning. The patient has been seen by pulmonary medicine for multifactorial dyspnea but doubt pneumonia but we 'll plan to continue antibiotics. Cardiology is following for heart failure and fluid overload. They have decreased amiodarone to 200 mg daily and also recommend starting eliquis 5 mg twice daily. Acute coronary syndrome ruled out. Echocardiogram reveals EF 25-30% with LA severely dilated, mild mitral regurgitation, mild tricuspid regurgitation, borderline pulmonary hypertension. 12/20: Patient states he is feeling better today with decreased shortness of breath. He remains in influenza isolation. [place] removed moved from his previous hip surgery done yesterday. He is continued on CAPD managed by Dr. Wilkinson. He has been afebrile, blood pressure 93/55, heart rate in the 70s and 80s, pulse ox 99% on 3 L nasal cannula. The chest x-ray from yesterday reveals increasing interstitial infiltrates and edema compared to last exam. This could be worsening heart failure. 12/21: Patient had low blood pressure this morning and dialysis fluid has been adjusted by nephrology. Atenolol was held this morning. Patient has been eating very little and agrees that he is depressed. Remeron added at bedtime. CODE STATUS clarified for DO NOT RESUSCITATE. PT and OT are following the patient and he is total assist with early fatigue. He remains afebrile, heart rate running in the 80s, pulse ox 97% on 2 L. White count 13.8, hemoglobin 10.8. Sodium 132, potassium 4.4, chloride 90, CO2 27, BUN 77 creatinine 8.29. Blood sugars run between 107 and 165. Albumin is 2.6. Anticipate discharge back to [facility] on Monday. 12/22: Patient continues to have low blood pressure this morning. Patient has not had CAPD at this time due to the low blood pressure. Dr. Wilkinson has CAPD on hold until systolic is greater than 100. Patient's appetite continues to be poor. Affect continues to be depressed. Remeron was added. Patient remained afebrile, heart rate running in the 80s, pulse ox around 96-97% on 2 L. WAC 19.8, hemoglobin 11.3, sodium 132 potassium 4.6, chloride 90, BUN 77 creatinine 8.21. Lactic acid 1.8 12/23: Patient still has poor appetite complaining of sores in mouth. Upon examination thrush is present. Patient continues to be hypotensive blood pressure today 90/52 with a heart rate of 71. Affect continues to be depressed. Patient remains afebrile. Pulse ox 93% on room air. Blood sugar is running between 94 and 110. Family is at the bedside. 12/24: There was an A=Team : The patient over the weekend for acute bleeding with few episodes of bright red blood per rectum and altered mental status, temp greater than 100 and patient was subsequently transferred to the intensive care unit. He received a fluid bolus but has not been on vasopressors. Blood pressure this morning is 97/58, temperature 99.3, pulse ox 97% on 3 L nasal cannula, heart rate running in the 60s and 70s. White count is 11.3, hemoglobin 9.5. Sodium is improved to 133, potassium 3.5, chloride 93, CO2 27. BUN 75 and creatinine 7.15. Peritoneal fluid Gram stain hasn't finalized with no growth. Blood culture showing no growth and group A strep culture is finalized with no growth. Triple lumen was placed by Dr. Willis yesterday. Chest x-ray this morning reveals congestive heart failure. Right central line within the right atrium or within the proximal inferior vena cava. He is continued on CAPD. Patient remains very lethargic. He did have a bowel movement last night and this morning. 12/25: Patient remains lethargic, little oral intake, speech therapy has evaluated and recommended dysphagia diet with nectar thick liquids and aspiration precautions. Patient is also on tube feedings via Dobbhoff. No significant change from yesterday. He continues on CAPD managed by Dr. Chun. Discussed with Dr. Chun and decision made to start hydrocortisone 100 mg every 8 hours for the next 2 days. Zosyn was discontinued by Dr. Willis as he completed course. He was given a fluid bolus of 500 ML's. 12/26: Patient remains in the intensive care unit. He is on tube feedings but apparently did not get any oral feeding last night. He seems to be improving with Solu-Cortef and this will be decreased to 50 mg IV every 8 hours. We will change managing that was ordered by pulmonary medicine to when necessary for blood pressure. He has been afebrile, blood pressure 133/77, pulse 79, pulse ox 97% on 3 L nasal cannula. White count is normal at 5.3, hemoglobin 9.4, BUN 65 creatinine 6.71. Capillary blood glucose running between 144-199. Levemir will be added daily. He is also on NovoLog scale. 12/27: The patient remains in intensive care unit and waning for [facility] since yesterday. Patient is found sitting up in a recliner and appears to be comfortable. He is more interactive today. He ate is breakfast this morning. He has friends and family at the bedside. Repeat lab work shows a white count of 7.4, hemoglobin 9.7, platelet count 233. Sodium 132, potassium 3.4, chloride 94, CO2 26, BUN 63 and creatinine 6.26. Capillary blood glucose running between 116 and 161. Patient is plan for return to [facility] most likely this will occur on Monday. 12/28: Patient has been transferred to the [facility] floor. He has been afebrile. Heart rate in the 60s and 70s, blood pressure 143/71, pulse ox 95% on room air. Repeat lab work shows a white count of 8.2, hemoglobin 10.1, platelet count 276. Sodium 134, potassium 4.0, chloride 95, CO2 27, BUN 69 creatinine 5.88. Blood sugars are running 147 through 178. The patient is continued on CAPD. Patient is not eating much today. Nurse states the patient had 5 bowel movements this morning and stool will be sent for C. difficile toxin. Patient is noted to have a stage II decubitus on coccyx. Anticipate return to [facility] on Monday. 12/29: C. difficile toxin came back negative. He states that he is still having a lot of stools. Nursing states that he is having smaller amounts and is starting to form. He has been afebrile, blood pressure 116/59, pulse ox 93% on room air, heart rate running in the 70s and 80s. He is continued on Solu- Cortef 50 mg IV daily and manage drain is as needed.. Patient is continued on CAPD. 12/30: Patient remains afebrile, pulse 6670s, blood pressure 124/61, pulse ox 94% on room air. White count is normal 6.5, hemoglobin 10.5, BUN 17 creatinine 6.24. Sodium 135, potassium 3.5, chloride 95, CO2 31. Calcium 8.3. Patient is continued on CAPD. He's had no further diarrhea and stools are formed. Patient continues to have sores in his mouth despite use of Isordil extra O' Hernandez and IV Diflucan. We will add in Xylocaine gel. Patient continues to be quite lethargic and sleeping all the time. Patient does not have much energy. 12/31: Patient is complaining of sore mouth that has not been improved with the current treatment. He is not eating very much. He states he slept okay. He is taking his nephro and have to phoned [place]. Patient's nephew is at the bedside. Plan to continue current treatment. Patient has been afebrile, heart rate in the 70s, blood pressure 117/69, pulse ox 94% on room air. He is currently on Solu-Cortef 50 mg IV daily. Review of Systems CONSTITUTIONAL: No fever no chills. Reports generalized weakness, reports malaise EYES: No icterus sclerae, no conjunctivitis. EARS, NOSE, MOUTH, THROAT, and FACE: No sore throat, lymphadenopathy, carotid bruits or deformity. Complains of sore mouth RESPIRATORY: Positive dyspnea and shortness of breath. CARDIOVASCULAR: Positive PND orthopnea palpitation. GASTROINTESTINAL: Abdominal distention and ascites from his CAPD. Denies diarrhea GENITOURINARY: Negative for Hematuria or UTI, no kidney stones. INTEGUMENT/BREAST: Possible right hip pain. HEMATOLOGIC/LYMPHATIC: Negative for bleed or purpura. MUSCULOSKELTAL: Negative for Myalgia or arthralgia. NEURLOGICAL: No LOC, Sz or syncope, blurred vision dizziness or abnormality. BEHAVIORAL/PSYCH: Reports depression reports lack of appetite. ENDOCRINE: Negative. Objective - Vital Signs Vital signs: Vital Signs Temp 98.0 F 12/31/18 06:00 Pulse 78 12/31/18 08:20 Resp 18 12/31/18 06:00 BP 152/70 12/31/18 08:20 Pulse Ox 95 12/31/18 06:00 Intake & Output 12/30/18 12/31/18 12/31/18 18:59 06:59 18:59 Intake Total 260 420 Output Total 3 Balance 257 420 Weight 62.5 kg Intake: IV 160 0.9% Normal Saline 160 Intake, IV Titration 100 320 Amount Fluconazole in NaCl,Iso- 100 Osm 100 mg In Saline 1 50ml.bag @ 50 mls/hr IVPB Q24H [facility] Rx#:[id number] Sodium Chloride 0.9% 1, 320 000 ml @ 20 mls/hr IV . Q24H [facility] Rx#:[id number] Oral 100 Output: Stool 3 Other: Voiding Method Diaper Diaper CAPD CAPD # Bowel Movements 2 - Exam General Appearance: Alert, thin, cooperative, he seems older than his age. No respiratory distress noted. Patient in bed, resting, generalized weakness noted. Neck HEENT: Supple, no lymphadenopathy, no thyroid enlargement, no carotid bruits. Lungs: Decreased breath some bilateral fine rhonchi positive mild crackles in the bases specially the right side with mild inspiratory expiratory wheezes as well. Chest Wall: Chest wall normal expansion with deep inspiration no tenderness and no deformity was found on exam, no costochondral pain or discomfort. Heart: Irregular rhythm and rate S1,S2 +S3, +5 cm JVD. Back: Symmetric, no curvature, ROM normal, no CVA tenderness. Abdomen: Soft, positive bowel sounds, CAPD fluid Extremities: Right side incision looks fine. Pulses: 2+ and symmetric. Skin: Skin color, texture, tugor normal, no rashes or lesions. Neurologic: Generalized weakness, oriented 3, no focal neuro deficit. - Labs CBC & Chem 7: 12/30/18 06:29 12/31/18 08:45 Labs: Abnormal Lab Results - Last 24 Hours (Table) 12/30/18 12/30/18 12/30/18 Range/Units 11:53 17:22 20:35 Sodium (137-145) mmol/L Potassium (3.5-5.1) mmol/L Chloride (98-107) mmol/L BUN (9-20) mg/dL Creatinine (0.66-1.25) mg/dL Glucose (74-99) mg/dL POC Glucose (mg/dL) 175 H 189 H 140 H (75-99) mg/dL Calcium (8.4-10.2) mg/dL 12/31/18 Range/Units 08:45 Sodium 136 L (137-145) mmol/L Potassium 3.0 L (3.5-5.1) mmol/L Chloride 96 L (98-107) mmol/L BUN 68 H (9-20) mg/dL Creatinine 6.11 H (0.66-1.25) mg/dL Glucose 109 H (74-99) mg/dL POC Glucose (mg/dL) (75-99) mg/dL Calcium 8.3 L (8.4-10.2) mg/dL Assessment and Plan Plan: 1 acute hypoxic respiratory failure: Combination of possible pneumonia not ruled out, influenza A, and acute on chronic heart failure. Patient to continue CAPD, DuoNeb treatments, Levaquin, Zosyn. acute coronary syndrome ruled out by cardiology. 2 fluid overload: acute on chronic systolic heart failure with severe impaired left ventricular function patient has been on medical management with his chronic kidney disease this is a contributing factor this point. Continue CAPD we'll consult nephrology and if patient continued to decline might require hemodialysis in the meanwhile continue medical management. 3 COPD: Consult with pulmonary medicine appreciated. Continue nebulizer treatments and oxygen. 4 influenza A: Tamiflu completed. 5 interstitial pneumonitis: Antibiotics completed 6 CHF exacerbation: Mostly systolic dysfunction with acute on a chronic heart failure continue diuretics continue current management. 7 elevated troponin: Cardiology consult appreciated. Acute coronary syndrome ruled out. 8 recent hip fracture: Post ORIF still in rehab at [facility]. [place] have been removed. 9 end-stage renal disease: On CAPD has been seen nephrology for long time we'll consult nephrology at this point. 10 A. fib with RVR, paroxysmal atrial fibrillation: Amiodarone adjusted by cardiology to 200 mg daily. Continue eliquis 5 mg twice daily. 11 type 2 diabetes: Continue NovoLog per sliding scales. 12 hyperlipidemia: On Lopid 6 in the milligrams daily. 13 chronic anemia: On multivitamins and iron also still on Aranesp on weekly basis. 14 severe GERD/GI prophylaxis: Patient remain on Protonix 40 mg daily. 15 chronic pain syndrome: On pain management patient is on a on tramadol 50 mg 4 times a day as needed. 16. Recurrent depression with loss of appetite. Remeron added at bedtime, continue Zoloft. 17. Acute lower GI bleeding most likely hemorrhoidal bleed. 18. Oropharyngeal candidiasis continue Mycelex Trausch a, Diflucan IV, lidocaine viscus. 19. Metabolic encephalopathy possibly related to uremia 20. Severe protein calorie malnutrition started on tube feedings through Dobbhoff, discontinued. Speech therapy is recommended dysphagia diet with nectar thick liquids and aspiration precautions as well. 21. Adrenal insufficiency. Hydrocortisone decreased to 50 mg IV daily. 22. Diarrhea. Ruled out C. difficile colitis. CODE STATUs: NO CODE PER PATIENT WISHES. Discharge plan: Return to [facility] Impression and plan of care have been directed as dictated by the signing physician. Margot Dorado nurse practitioner acting as scribe for signing physician.
[2018-12-31] MEDS: FLUCONAZOLE IN NACL,ISO-OSM 100 MG in SALINE 1 50ML.BAG IVPB SCH (12:45)
[2018-12-31] MEDS: FENOFIBRATE 160 MG TAB PO SCH (12:45)
[2018-12-31] MEDS: SODIUM CHLORIDE 0.9% 1,000 ML IV SCH (13:35)
[2018-12-31 16:40] LABS: Glucose,Whole Blood 177 mg/dL (75-99)
--- NOTE | 2018-12-31 18:08 | PN ---
PROGRESS NOTE Patient is seen for followup for end-stage renal disease. He is currently comfortable. Patient is quite weak. He has started to increase his oral intake to some degree for peritoneal dialysis. Patient is maintained on 1.5% solution q.6 hours. On examination this morning, blood pressure was 117/69, heart rate 75 per minute. He is afebrile. EXAMINATION OF THE HEART: S1 and S2. EXAMINATION OF LUNGS: Bilateral breath sounds are heard. ABDOMEN: Soft, non-tender. Examination of lower extremities shows no evidence of edema. ROTARY BAR OPERATOR exam is grossly intact. Labs show sodium 136, potassium 3.0, BUN 68, serum creatinine 6.1. ASSESSMENT: 1. End-stage renal disease, on peritoneal dialysis. Continue current PD exchanges. 2. Hypokalemia secondary to peritoneal dialysis as well as decreased intake, being replaced. 3. Influenza A with severe debility. 4. Anemia of chronic disease, maintained on Aranesp. 5. Chronic kidney disease mineral bone disorder, maintained on Velphoro. 6. Hypotension which is chronic, maintained on midodrine, most likely related to the cardiomyopathy. 7. Cardiomyopathy, ejection fraction of 25%. PLAN: Continue current PD exchanges. Continue to encourage increased oral intake. MMODL / IJN: [id number] /
[2018-12-31] MEDS: POTASSIUM CHLORIDE 20 MEQ in WATER FOR INJECTION 1 100ML.BAG IVPB SCH ×2 (19:52→21:32)
[2018-12-31] MEDS: Acetaminophen-Codeine 300-30mg TAB PO PRN (19:52)
[2018-12-31 21:12] LABS: Glucose,Whole Blood 205 mg/dL (75-99)
[2019-01-01] MEDS: CLOTRIMAZOLE TROCHE 10 MG TROCHE MUCOUS MEM SCH ×6 (00:35→23:46)
[2019-01-01] MEDS: DIALYSIS (PERIT 1.5%) 2,500 ML 37.5 G/2,500 ML BAG INTRAPERIT SCH ×7 (00:35→23:46)
[2019-01-01 07:05] LABS: Glucose,Whole Blood 118 mg/dL (75-99)
[2019-01-01] MEDS: INSULIN ASPART (NovoLOG) 100 UNIT/ML VIAL SQ SCH ×4 (07:09→21:28)
[2019-01-01] MEDS: ENOXAPARIN 30 MG/0.3 ML SYRINGE SQ SCH (08:50)
[2019-01-01] MEDS: HYDROCORTISONE SUCCINATE 100 MG/2 ML VIAL IV SCH (08:51)
[2019-01-01] MEDS: INSULIN DETEMIR (LEVEMIR) 100 UNIT/ML SYR SQ SCH (08:53)
[2019-01-01] MEDS: LIDOCAINE 5% PATCH TOPICAL SCH (08:54)
[2019-01-01] MEDS: LIDOCAINE VISCOUS 2% 15 ML CUP MUCOUS MEM SCH ×4 (08:55→21:21)
[2019-01-01] MEDS: VELPHORO 500 MG PO SCH (08:56)
[2019-01-01] MEDS: MAG HYDROX/AL HYDROX/SIMETH 30 ML, LIDOCAINE VISCOUS 30 ML, diphenhydrAMINE ELIXIR 75 M... PO SCH ×16 (08:59→21:23)
[2019-01-01] MEDS: SODIUM CHLORIDE 0.9% 1,000 ML IV SCH (10:44)
[2019-01-01 11:03] LABS: Glucose,Whole Blood 95 mg/dL (75-99)
[2019-01-01] MEDS: SALT AND SODA MOUTHWASH 1,000 ML PO SCH ×3 (11:06→21:24)
[2019-01-01] MEDS: CALCIUM CARB-MAG CARB-FOLIC 1 EACH TAB PO SCH ×3 (11:10→17:09)
[2019-01-01] MEDS: MULTIVITAMINS, THERA 1 EACH TAB PO SCH (11:10)
[2019-01-01] MEDS: Acetaminophen-Codeine 300-30mg TAB PO PRN ×2 (11:29→21:22)
[2019-01-01] MEDS: SEVELAMER 800 MG TAB PO SCH ×2 (11:32→21:22)
--- NOTE | 2019-01-01 11:50 | PN ---
PROGRESS NOTE Patient is seen for followup for end-stage renal disease. He is still complaining of pain and soreness in his mouth, especially when he swallows. Overall, he remains weak. He is trying to at least drink his Ensure/Nepro. PHYSICAL EXAMINATION: On examination today, blood pressure was 135/68, heart rate 78 per minute. He is afebrile. EXAMINATION OF THE HEART: S1 and S2. EXAMINATION OF THE LUNGS: Decreased breath sounds at bases. Abdomen is soft, nontender. Examination of lower extremities shows no evidence of edema. ASSESSMENT: 1. End-stage renal disease, on peritoneal dialysis. Continue current PD exchanges. 2. Anemia of chronic disease, maintained on Aranesp. 3. Chronic kidney disease mineral bone disorder, maintained on Velphoro and Renvela. 4. Oral ulcers not significantly improved. Patient has lidocaine gel. 5. Chronic hypotension, maintained on midodrine. Serum cortisol was not low. The patient is currently maintained on Solu-Cortef. I will discontinue that for now. MMODL / IJN: [id number] /
[2019-01-01] MEDS: FENOFIBRATE 160 MG TAB PO SCH (12:01)
[2019-01-01] MEDS: ATORVASTATIN 40 MG TAB PO SCH (12:01)
--- NOTE | 2019-01-01 12:27 | P.PN ---
Subjective Progress Note Date: 01/01/19 73-year-old male who is known from [facility] was hospitalized last week with hip fracture post-ORIF who had severe lethargy and change in mental status after surgery was transferred to [facility] where was seen by neurology and evaluated and found to have severe encephalopathy mostly medication related medication were adjusted patient started to feel much better still have no weight bearing on the hip area was transferred to [facility] for rehab. Patient is doing CAPD 4 end-stage renal disease and has been doing well with it continue to decline over ROM the last 12 hours. 2 calling EMS with found to have significant hypoxia with the worsening congestion and cough productive dark phlegm along with significant weight gain and fluid retention. Ended up coming via EMS to demurs department at [facility] where was seen and evaluated his influenza A was positive ration found to be in quite bed fluid overload with pro-BNP was 85,000 patient chest x-ray showed sign of pneumonia as well he was started on Zosyn and Levaquin along with Tamiflu patient will be seen pulmonary and admitted to the hospital with above problem. 12/19: Patient is receiving CAPD managed by Dr. Wilkinson. The removed significant fluid last night. Chest x-ray was ordered this morning. The patient has been seen by pulmonary medicine for multifactorial dyspnea but doubt pneumonia but we 'll plan to continue antibiotics. Cardiology is following for heart failure and fluid overload. They have decreased amiodarone to 200 mg daily and also recommend starting eliquis 5 mg twice daily. Acute coronary syndrome ruled out. Echocardiogram reveals EF 25-30% with LA severely dilated, mild mitral regurgitation, mild tricuspid regurgitation, borderline pulmonary hypertension. 12/20: Patient states he is feeling better today with decreased shortness of breath. He remains in influenza isolation. [place] removed moved from his previous hip surgery done yesterday. He is continued on CAPD managed by Dr. Wilkinson. He has been afebrile, blood pressure 93/55, heart rate in the 70s and 80s, pulse ox 99% on 3 L nasal cannula. The chest x-ray from yesterday reveals increasing interstitial infiltrates and edema compared to last exam. This could be worsening heart failure. 12/21: Patient had low blood pressure this morning and dialysis fluid has been adjusted by nephrology. Atenolol was held this morning. Patient has been eating very little and agrees that he is depressed. Remeron added at bedtime. CODE STATUS clarified for DO NOT RESUSCITATE. PT and OT are following the patient and he is total assist with early fatigue. He remains afebrile, heart rate running in the 80s, pulse ox 97% on 2 L. White count 13.8, hemoglobin 10.8. Sodium 132, potassium 4.4, chloride 90, CO2 27, BUN 77 creatinine 8.29. Blood sugars run between 107 and 165. Albumin is 2.6. Anticipate discharge back to [facility] on Monday. 12/22: Patient continues to have low blood pressure this morning. Patient has not had CAPD at this time due to the low blood pressure. Dr. Wilkinson has CAPD on hold until systolic is greater than 100. Patient's appetite continues to be poor. Affect continues to be depressed. Remeron was added. Patient remained afebrile, heart rate running in the 80s, pulse ox around 96-97% on 2 L. WAC 19.8, hemoglobin 11.3, sodium 132 potassium 4.6, chloride 90, BUN 77 creatinine 8.21. Lactic acid 1.8 12/23: Patient still has poor appetite complaining of sores in mouth. Upon examination thrush is present. Patient continues to be hypotensive blood pressure today 90/52 with a heart rate of 71. Affect continues to be depressed. Patient remains afebrile. Pulse ox 93% on room air. Blood sugar is running between 94 and 110. Family is at the bedside. 12/24: There was an A=Team : The patient over the weekend for acute bleeding with few episodes of bright red blood per rectum and altered mental status, temp greater than 100 and patient was subsequently transferred to the intensive care unit. He received a fluid bolus but has not been on vasopressors. Blood pressure this morning is 97/58, temperature 99.3, pulse ox 97% on 3 L nasal cannula, heart rate running in the 60s and 70s. White count is 11.3, hemoglobin 9.5. Sodium is improved to 133, potassium 3.5, chloride 93, CO2 27. BUN 75 and creatinine 7.15. Peritoneal fluid Gram stain hasn't finalized with no growth. Blood culture showing no growth and group A strep culture is finalized with no growth. Triple lumen was placed by Dr. Willis yesterday. Chest x-ray this morning reveals congestive heart failure. Right central line within the right atrium or within the proximal inferior vena cava. He is continued on CAPD. Patient remains very lethargic. He did have a bowel movement last night and this morning. 12/25: Patient remains lethargic, little oral intake, speech therapy has evaluated and recommended dysphagia diet with nectar thick liquids and aspiration precautions. Patient is also on tube feedings via Dobbhoff. No significant change from yesterday. He continues on CAPD managed by Dr. Chun. Discussed with Dr. Chun and decision made to start hydrocortisone 100 mg every 8 hours for the next 2 days. Zosyn was discontinued by Dr. Willis as he completed course. He was given a fluid bolus of 500 ML's. 12/26: Patient remains in the intensive care unit. He is on tube feedings but apparently did not get any oral feeding last night. He seems to be improving with Solu-Cortef and this will be decreased to 50 mg IV every 8 hours. We will change managing that was ordered by pulmonary medicine to when necessary for blood pressure. He has been afebrile, blood pressure 133/77, pulse 79, pulse ox 97% on 3 L nasal cannula. White count is normal at 5.3, hemoglobin 9.4, BUN 65 creatinine 6.71. Capillary blood glucose running between 144-199. Levemir will be added daily. He is also on NovoLog scale. 12/27: The patient remains in intensive care unit and waning for [facility] since yesterday. Patient is found sitting up in a recliner and appears to be comfortable. He is more interactive today. He ate is breakfast this morning. He has friends and family at the bedside. Repeat lab work shows a white count of 7.4, hemoglobin 9.7, platelet count 233. Sodium 132, potassium 3.4, chloride 94, CO2 26, BUN 63 and creatinine 6.26. Capillary blood glucose running between 116 and 161. Patient is plan for return to [facility] most likely this will occur on Monday. 12/28: Patient has been transferred to the [facility] floor. He has been afebrile. Heart rate in the 60s and 70s, blood pressure 143/71, pulse ox 95% on room air. Repeat lab work shows a white count of 8.2, hemoglobin 10.1, platelet count 276. Sodium 134, potassium 4.0, chloride 95, CO2 27, BUN 69 creatinine 5.88. Blood sugars are running 147 through 178. The patient is continued on CAPD. Patient is not eating much today. Nurse states the patient had 5 bowel movements this morning and stool will be sent for C. difficile toxin. Patient is noted to have a stage II decubitus on coccyx. Anticipate return to [facility] on Monday. 12/29: C. difficile toxin came back negative. He states that he is still having a lot of stools. Nursing states that he is having smaller amounts and is starting to form. He has been afebrile, blood pressure 116/59, pulse ox 93% on room air, heart rate running in the 70s and 80s. He is continued on Solu- Cortef 50 mg IV daily and manage drain is as needed.. Patient is continued on CAPD. 12/30: Patient remains afebrile, pulse 6670s, blood pressure 124/61, pulse ox 94% on room air. White count is normal 6.5, hemoglobin 10.5, BUN 17 creatinine 6.24. Sodium 135, potassium 3.5, chloride 95, CO2 31. Calcium 8.3. Patient is continued on CAPD. He's had no further diarrhea and stools are formed. Patient continues to have sores in his mouth despite use of Isordil extra O' Hernandez and IV Diflucan. We will add in Xylocaine gel. Patient continues to be quite lethargic and sleeping all the time. Patient does not have much energy. 3: Patient is complaining of sore mouth that has not been improved with the current treatment. He is not eating very much. He states he slept okay. He is taking his nephro and have to phoned Mag1,2,3 Listo cup. Patient's nephew is at the bedside. Plan to continue current treatment. Patient has been afebrile, heart rate in the 70s, blood pressure 117/69, pulse ox 94% on room air. He is currently on Solu-Cortef 50 mg IV daily. 01/01: Patient continues to have difficulty with eating. His mouth is sore and he has refused to take any food in this morning her take his medication until he has his schools solution. This has been provided by his nurse. He continues to have sores in his mouth and we will add salt and soda mouthwash 4 times daily. Patient's brother is at the bedside and has been updated. Patient is also now without bowel movements and MiraLAX has been given this morning. We are also changing Zoloft to Remeron to help with appetite. Review of Systems CONSTITUTIONAL: No fever no chills. Reports generalized weakness, reports malaise EYES: No icterus sclerae, no conjunctivitis. EARS, NOSE, MOUTH, THROAT, and FACE: No sore throat, lymphadenopathy, carotid bruits or deformity. Complains of sore mouth RESPIRATORY: Positive dyspnea and shortness of breath. CARDIOVASCULAR: Positive PND orthopnea palpitation. GASTROINTESTINAL: Abdominal distention and ascites from his CAPD. Denies diarrhea GENITOURINARY: Negative for Hematuria or UTI, no kidney stones. INTEGUMENT/BREAST: Possible right hip pain. HEMATOLOGIC/LYMPHATIC: Negative for bleed or purpura. MUSCULOSKELTAL: Negative for Myalgia or arthralgia. NEURLOGICAL: No LOC, Sz or syncope, blurred vision dizziness or abnormality. BEHAVIORAL/PSYCH: Reports depression reports lack of appetite. ENDOCRINE: Negative. Objective - Vital Signs Vital signs: Vital Signs Temp 97.8 F 01/01/19 05:00 Pulse 78 01/01/19 05:00 Resp 18 01/01/19 05:00 BP 135/68 01/01/19 05:00 Pulse Ox 94 L 01/01/19 05:00 Intake & Output 12/31/18 01/01/19 01/01/19 18:59 06:59 18:59 Intake Total 630 200 Output Total 3 1 Balance 627 199 Weight 62.5 kg 49 kg Intake: Intake, IV Titration 230 200 Amount Fluconazole in NaCl,Iso- 50 Osm 100 mg In Saline 1 50ml.bag @ 50 mls/hr IVPB Q24H [facility] Rx#:[id number] Potassium Chloride 20 meq 200 In Water For Injection 1 100ml.bag @ 50 mls/hr IVPB Q2H [facility] Rx#: [id number] Sodium Chloride 0.9% 1, 180 000 ml @ 20 mls/hr IV . Q24H [facility] Rx#:[id number] Oral 400 Tube Feeding 0 Output: Stool 3 1 Other: Voiding Method Diaper Diaper CAPD CAPD - Exam General Appearance: Alert, thin, cooperative, he seems older than his age. Patient in bed, resting, generalized weakness noted. Neck HEENT: Supple, no lymphadenopathy, no thyroid enlargement, no carotid bruits. Lungs: Decreased breath some bilateral fine rhonchi positive mild crackles in the bases specially the right side with mild inspiratory expiratory wheezes as well. Chest Wall: Chest wall normal expansion with deep inspiration no tenderness and no deformity was found on exam, no costochondral pain or discomfort. Heart: Irregular rhythm and rate S1,S2 +S3, +5 cm JVD. Back: Symmetric, no curvature, ROM normal, no CVA tenderness. Abdomen: Soft, positive bowel sounds, CAPD fluid Extremities: Right side incision looks fine. Pulses: 2+ and symmetric. Skin: Skin color, texture, tugor normal, no rashes or lesions. Neurologic: Generalized weakness, oriented 3, no focal neuro deficit. - Labs CBC & Chem 7: 12/30/18 06:29 12/31/18 08:45 Labs: Abnormal Lab Results - Last 24 Hours (Table) 12/31/18 12/31/18 12/31/18 Range/Units 11:52 16:38 21:11 POC Glucose (mg/dL) 143 H 177 H 205 H (75-99) mg/dL 01/01/19 Range/Units 07:04 POC Glucose (mg/dL) 118 H (75-99) mg/dL Assessment and Plan Plan: 1 acute hypoxic respiratory failure: Combination of possible pneumonia not ruled out, influenza A, and acute on chronic heart failure. Patient to continue CAPD, DuoNeb treatments, Levaquin, Zosyn. acute coronary syndrome ruled out by cardiology. 2 fluid overload: acute on chronic systolic heart failure with severe impaired left ventricular function patient has been on medical management with his chronic kidney disease this is a contributing factor this point. Continue CAPD we'll consult nephrology and if patient continued to decline might require hemodialysis in the meanwhile continue medical management. 3 COPD: Consult with pulmonary medicine appreciated. Continue nebulizer treatments and oxygen. 4 influenza A: Tamiflu completed. 5 interstitial pneumonitis: Antibiotics completed 6 CHF exacerbation: Mostly systolic dysfunction with acute on a chronic heart failure continue diuretics continue current management. 7 elevated troponin: Cardiology consult appreciated. Acute coronary syndrome ruled out. 8 recent hip fracture: Post ORIF still in rehab at [facility]. Paul have been removed. 9 end-stage renal disease: On CAPD has been seen nephrology for long time we'll consult nephrology at this point. 10 A. fib with RVR, paroxysmal atrial fibrillation: Amiodarone adjusted by cardiology to 200 mg daily. Continue eliquis 5 mg twice daily. 11 type 2 diabetes: Continue NovoLog per sliding scales. 12 hyperlipidemia: On Lopid 6 in the milligrams daily. 13 chronic anemia: On multivitamins and iron also still on Aranesp on weekly basis. 14 severe GERD/GI prophylaxis: Patient remain on Protonix 40 mg daily. 15 chronic pain syndrome: On pain management patient is on a on tramadol 50 mg 4 times a day as needed. 16. Recurrent depression with loss of appetite. Remeron added at bedtime, continue Zoloft. 17. Acute lower GI bleeding most likely hemorrhoidal bleed. 18. Oropharyngeal candidiasis continue Mycelex Jose, Diflucan IV, lidocaine viscus, salt and soda mouthwash 4 times daily. 19. Metabolic encephalopathy possibly related to uremia 20. Severe protein calorie malnutrition started on tube feedings through Dobbhoff, discontinued. Speech therapy is recommended dysphagia diet with nectar thick liquids and aspiration precautions as well. 21. Adrenal insufficiency. Hydrocortisone decreased to 50 mg IV daily. 22. Diarrhea. Ruled out C. difficile colitis. CODE STATUs: NO CODE PER PATIENT WISHES. Discharge plan: Return to [facility] Impression and plan of care have been directed as dictated by the signing physician. Margot Dorado nurse practitioner acting as scribe for signing physician.
[2019-01-01 12:59] LABS: Potassium 3.8 mmol/L (3.5-5.1)
[2019-01-01] MEDS: PANTOPRAZOLE 40 MG TABLET PO SCH (13:13)
[2019-01-01] MEDS: FLUCONAZOLE IN NACL,ISO-OSM 100 MG in SALINE 1 50ML.BAG IVPB SCH (13:22)
[2019-01-01] MEDS: GENTAMICIN 0.1% CREAM 15 GM TUBE TOPICAL SCH (13:22)
[2019-01-01] MEDS: AMIODARONE 200 MG TAB PO SCH (13:22)
[2019-01-01] MEDS: SERTRALINE 25 MG TAB PO SCH (13:31)
[2019-01-01] MEDS: ATENOLOL 12.5 MG TAB PO SCH (14:44)
[2019-01-01 17:01] LABS: Glucose,Whole Blood 101 mg/dL (75-99)
[2019-01-01] MEDS ORDERED: MIRTAZAPINE 15 MG TAB PO SCH (21:00)
[2019-01-01 21:23] LABS: Glucose,Whole Blood 165 mg/dL (75-99)
[2019-01-02] MEDS: DIALYSIS (PERIT 1.5%) 2,500 ML 37.5 G/2,500 ML BAG INTRAPERIT SCH ×3 (06:11→17:31)
[2019-01-02] MEDS: CLOTRIMAZOLE TROCHE 10 MG TROCHE MUCOUS MEM SCH ×3 (06:12→17:39)
[2019-01-02 07:15] LABS: Glucose,Whole Blood 84 mg/dL (75-99)
[2019-01-02] MEDS: INSULIN ASPART (NovoLOG) 100 UNIT/ML VIAL SQ SCH ×3 (07:34→17:18)
[2019-01-02] MEDS: VELPHORO 500 MG PO SCH (08:19)
[2019-01-02] MEDS: SEVELAMER 800 MG TAB PO SCH (08:20)
[2019-01-02] MEDS: LIDOCAINE VISCOUS 2% 15 ML CUP MUCOUS MEM SCH ×3 (08:20→17:38)
[2019-01-02] MEDS: ENOXAPARIN 30 MG/0.3 ML SYRINGE SQ SCH (08:20)
[2019-01-02] MEDS: MAG HYDROX/AL HYDROX/SIMETH 30 ML, LIDOCAINE VISCOUS 30 ML, diphenhydrAMINE ELIXIR 75 M... PO SCH ×12 (08:20→17:39)
[2019-01-02] MEDS: CALCIUM CARB-MAG CARB-FOLIC 1 EACH TAB PO SCH ×3 (08:21→17:39)
[2019-01-02] MEDS: GENTAMICIN 0.1% CREAM 15 GM TUBE TOPICAL SCH (08:21)
[2019-01-02] MEDS: FENOFIBRATE 160 MG TAB PO SCH (08:21)
[2019-01-02] MEDS: ATENOLOL 12.5 MG TAB PO SCH (08:21)
[2019-01-02] MEDS: ATORVASTATIN 40 MG TAB PO SCH (08:21)
[2019-01-02] MEDS: AMIODARONE 200 MG TAB PO SCH (08:21)
[2019-01-02] MEDS: PANTOPRAZOLE 40 MG TABLET PO SCH (08:21)
[2019-01-02] MEDS: SALT AND SODA MOUTHWASH 1,000 ML PO SCH ×3 (08:21→17:39)
[2019-01-02] MEDS: INSULIN DETEMIR (LEVEMIR) 100 UNIT/ML SYR SQ SCH ×2 (08:22→09:21)
[2019-01-02] MEDS: LIDOCAINE 5% PATCH TOPICAL SCH (08:22)
[2019-01-02 10:41] VITALS: BMI 19.1
--- NOTE | 2019-01-02 11:11 | P.DS ---
Providers Date of admission: 12/18/18 06:00 Expected date of discharge: 01/02/19 Attending physician: Mary Chavez MD Consults: 12/18/18 05:58 Consult Physician Stat Consulting Provider: Fallon Wilkinson Consult Reason/Comments: End-stage renal disease. Do you want consulting provider notified?: Already Contacted 12/18/18 10:05 Consult Physician Routine Consulting Provider: Beryl Smallwood Consult Reason/Comments: influenza Do you want consulting provider notified?: Yes Consult Physician Routine Consulting Provider: Zion Torres Consult Reason/Comments: elevated trop Do you want consulting provider notified?: Yes 12/22/18 06:08 Consult Physician Routine Consulting Provider: Grisel Willis Consult Reason/Comments: ICU Carpet Technician Do you want consulting provider notified?: Yes Primary care physician: [facility] [facility] Course: 73-year-old male who is known from [facility] was hospitalized last week with hip fracture post-ORIF who had severe lethargy and change in mental status after surgery was transferred to [facility] where was seen by neurology and evaluated and found to have severe encephalopathy mostly medication related medication were adjusted patient started to feel much better still have no weight bearing on the hip area was transferred to [facility] for rehab. Patient is doing CAPD 4 end-stage renal disease and has been doing well with it continue to decline over ROM the last 12 hours. 2 calling EMS with found to have significant hypoxia with the worsening congestion and cough productive dark phlegm along with significant weight gain and fluid retention. Ended up coming via EMS to demurs department at [facility] where was seen and evaluated his influenza A was positive ration found to be in quite bed fluid overload with pro-BNP was 85,000 patient chest x-ray showed sign of pneumonia as well he was started on Zosyn and Levaquin along with Tamiflu patient will be seen pulmonary and admitted to the hospital with above problem. 12/19: Patient is receiving CAPD managed by Dr. Wilkinson. The removed significant fluid last night. Chest x-ray was ordered this morning. The patient has been seen by pulmonary medicine for multifactorial dyspnea but doubt pneumonia but we'll plan to continue antibiotics. Cardiology is following for heart failure and fluid overload. They have decreased amiodarone to 200 mg daily and also recommend starting eliquis 5 mg twice daily. Acute coronary syndrome ruled out. Echocardiogram reveals EF 25-30% with LA severely dilated, mild mitral regurgitation, mild tricuspid regurgitation, borderline pulmonary hypertension. 12/20: Patient states he is feeling better today with decreased shortness of breath. He remains in influenza isolation. Paul removed moved from his previous hip surgery done yesterday. He is continued on CAPD managed by Dr. Wilkinson. He has been afebrile, blood pressure 93/55, heart rate in the 70s and 80s, pulse ox 99% on 3 L nasal cannula. The chest x-ray from yesterday reveals increasing interstitial infiltrates and edema compared to last exam. This could be worsening heart failure. 12/21: Patient had low blood pressure this morning and dialysis fluid has been adjusted by nephrology. Atenolol was held this morning. Patient has been eating very little and agrees that he is depressed. Remeron added at bedtime. CODE STATUS clarified for DO NOT RESUSCITATE. PT and OT are following the patient and he is total assist with early fatigue. He remains afebrile, heart rate running in the 80s, pulse ox 97% on 2 L. White count 13.8, hemoglobin 10.8. Sodium 132, potassium 4.4, chloride 90, CO2 27, BUN 77 creatinine 8.29. Blood sugars run between 107 and 165. Albumin is 2.6. Anticipate discharge back to [facility] on Monday. 12/22: Patient continues to have low blood pressure this morning. Patient has not had CAPD at this time due to the low blood pressure. Dr. Wilkinson has CAPD on hold until systolic is greater than 100. Patient's appetite continues to be poor. Affect continues to be depressed. Remeron was added. Patient remained afebrile, heart rate running in the 80s, pulse ox around 96-97% on 2 L. WAC 19.8, hemoglobin 11.3, sodium 132 potassium 4.6, chloride 90, BUN 77 creatinine 8.21. Lactic acid 1.8 12/23: Patient still has poor appetite complaining of sores in mouth. Upon examination thrush is present. Patient continues to be hypotensive blood pressure today 90/52 with a heart rate of 71. Affect continues to be depressed. Patient remains afebrile. Pulse ox 93% on room air. Blood sugar is running between 94 and 110. Family is at the bedside. 12/24: There was an A=Team : The patient over the weekend for acute bleeding with few episodes of bright red blood per rectum and altered mental status, temp greater than 100 and patient was subsequently transferred to the intensive care unit. He received a fluid bolus but has not been on vasopressors. Blood pressure this morning is 97/58, temperature 99.3, pulse ox 97% on 3 L nasal cannula, heart rate running in the 60s and 70s. White count is 11.3, hemoglobin 9.5. Sodium is improved to 133, potassium 3.5, chloride 93, CO2 27. BUN 75 and creatinine 7.15. Peritoneal fluid Gram stain hasn't finalized with no growth. Blood culture showing no growth and group A strep culture is finalized with no growth. Triple lumen was placed by Dr. Willis yesterday. Chest x-ray this morning reveals congestive heart failure. Right central line within the right atrium or within the proximal inferior vena cava. He is continued on CAPD. Patient remains very lethargic. He did have a bowel movement last night and this morning. 12/25: Patient remains lethargic, little oral intake, speech therapy has evaluated and recommended dysphagia diet with nectar thick liquids and aspiration precautions. Patient is also on tube feedings via [place]. No significant change from yesterday. He continues on CAPD managed by Dr. Chun. Discussed with Dr. Chun and decision made to start hydrocortisone 100 mg every 8 hours for the next 2 days. Zosyn was discontinued by Dr. Willis as he completed course. He was given a fluid bolus of 500 ML's. 12/26: Patient remains in the intensive care unit. He is on tube feedings but apparently did not get any oral feeding last night. He seems to be improving with Solu-Cortef and this will be decreased to 50 mg IV every 8 hours. We will change managing that was ordered by pulmonary medicine to when necessary for blood pressure. He has been afebrile, blood pressure 133/77, pulse 79, pulse ox 97% on 3 L nasal cannula. White count is normal at 5.3, hemoglobin 9.4, BUN 65 creatinine 6.71. Capillary blood glucose running between 144-199. Levemir will be added daily. He is also on NovoLog scale. 12/27: The patient remains in intensive care unit and waning for [facility] since yesterday. Patient is found sitting up in a recliner and appears to be comfortable. He is more interactive today. He ate is breakfast this morning. He has friends and family at the bedside. Repeat lab work shows a white count of 7.4, hemoglobin 9.7, platelet count 233. Sodium 132, potassium 3.4, chloride 94, CO2 26, BUN 63 and creatinine 6.26. Capillary blood glucose running between 116 and 161. Patient is plan for return to [facility] most likely this will occur on Monday. 12/28: Patient has been transferred to the [facility] floor. He has been afebrile. Heart rate in the 60s and 70s, blood pressure 143/71, pulse ox 95% on room air. Repeat lab work shows a white count of 8.2, hemoglobin 10.1, platelet count 276. Sodium 134, potassium 4.0, chloride 95, CO2 27, BUN 69 creatinine 5.88. Blood sugars are running 147 through 178. The patient is continued on CAPD. Patient is not eating much today. Nurse states the patient had 5 bowel movements this morning and stool will be sent for C. difficile toxin. Patient is noted to have a stage II decubitus on coccyx. Anticipate return to [facility] on Monday. 12/29: C. difficile toxin came back negative. He states that he is still having a lot of stools. Nursing states that he is having smaller amounts and is starting to form. He has been afebrile, blood pressure 116/59, pulse ox 93% on room air, heart rate running in the 70s and 80s. He is continued on Solu-Cortef 50 mg IV daily and manage drain is as needed.. Patient is continued on CAPD. 12/30: Patient remains afebrile, pulse 6670s, blood pressure 124/61, pulse ox 94% on room air. White count is normal 6.5, hemoglobin 10.5, BUN 17 creatinine 6.24. Sodium 135, potassium 3.5, chloride 95, CO2 31. Calcium 8.3. Patient is continued on CAPD. He's had no further diarrhea and stools are formed. Patient continues to have sores in his mouth despite use of Isordil extra O'Hernandez and IV Diflucan. We will add in Xylocaine gel. Patient continues to be quite lethargic and sleeping all the time. Patient does not have much energy. 3/4: Patient is complaining of sore mouth that has not been improved with the current treatment. He is not eating very much. He states he slept okay. He is taking his nephro and have to phoned [facility]. Patient's nephew is at the bedside. Plan to continue current treatment. Patient has been afebrile, heart rate in the 70s, blood pressure 117/69, pulse ox 94% on room air. He is currently on Solu-Cortef 50 mg IV daily. 3/5: Patient continues to have difficulty with eating. His mouth is sore and he has refused to take any food in this morning her take his medication until he has his schools solution. This has been provided by his nurse. He continues to have sores in his mouth and we will add salt and soda mouthwash 4 times daily. Patient's brother is at the bedside and has been updated. Patient is also now without bowel movements and MiraLAX has been given this morning. We are also changing Zoloft to Remeron to help with appetite. 3/6: Patient was found to have clotrimazole at his bedside that was not taken. Nursing has been watching him with all his medications make sure he is taking them as directed. He still has soreness in his mouth but thrush is improving. Plan will be for patient to go back to [facility] today and continue his rehab plan. He has been afebrile, blood pressure 147/71, pulse ox 94% on room air, heart rate in the 70s and 80s. Encourage oral intake. Patient will be discharged today in stable condition. Discharge diagnoses: 1 acute hypoxic respiratory failure secondary to possible pneumonia not ruled out, influenza A, and acute on chronic heart failure. 2 fluid overload: acute on chronic systolic heart failure with severe impaired left ventricular function 3 COPD 4 influenza A 5 interstitial pneumonitis 6 acute on a chronic systolic heart failure 7 elevated troponin. Acute coronary syndrome ruled out. 8 recent hip fracture: Post ORIF still in rehab at [facility]. Paul have been removed. 9 end-stage renal disease: On CAPD 10 A. fib with RVR, paroxysmal atrial fibrillation 11 type 2 diabetes 12 hyperlipidemia 13 chronic anemia 14 severe GERD 15 chronic pain syndrome 16. Recurrent depression with loss of appetite. 17. Acute lower GI bleeding most likely hemorrhoidal bleed. 18. Oropharyngeal candidiasis 19. Metabolic encephalopathy 20. Severe protein calorie malnutrition 21. Adrenal insufficiency 22. Diarrhea. Ruled out C. difficile colitis. Discharge plan: Return to [facility] Impression and plan of care have been directed as dictated by the signing physician. Margot Dorado nurse practitioner acting as scribe for signing physi jim. Patient Condition at Discharge: Good Plan - Discharge Summary Discharge Rx Participant: No New Discharge Prescriptions: New Amiodarone [Cordarone] 200 mg PO DAILY tab Atenolol [Tenormin] 12.5 mg PO QAM dose Atorvastatin [Lipitor] 40 mg PO DAILY tab diphenhydrAMINE ELIXIR [Benadryl Elixir] 75 mg PO ACHS cup INSULIN ASPART (NovoLOG) [NovoLOG (formulary)] 0 unit SQ ACHS vial Insulin Detemir (Levemir) [Levemir] 6 unit SQ HS syr Ipratropium-Albuterol Nebulize [Duoneb 0.5 mg-3 mg/3 ml Soln] 3 ml INHALATION RT-Q2H PRN ampul.neb PRN Reason: Shortness Of Breath Or Wheezing Lidocaine Viscous 2% [Xylocaine Viscous] 5 ml MUCOUS MEM ACHS ml Mag Hydrox/Al Hydrox/Simeth [Maalox] 30 ml PO ACHS cup Midodrine [ProAmatine] 10 mg PO AC-TID PRN tab PRN Reason: Hypotension Mirtazapine [Remeron] 15 mg PO HS tab Sevelamer [Renvela] 2,400 mg PO BID tab Non-Formulary Drug [Non Formulary Drug] 1 each PO ACHS #40 misc Fluconazole [Diflucan] 200 mg PO DAILY #1 tab Nystatin 100,000 Unit/ml Susp [Mycostatin Oral Susp] 3,000,000 unit PO ACHS cup Continue Gemfibrozil [Lopid] 600 mg PO DAILY Polyethylene Glycol 3350 [Miralax] 17 gm PO DAILY Ondansetron HCl [Zofran] 4 mg PO Q6H PRN PRN Reason: Nausea And Vomiting Na Phos,M-B/Na Phos,Di-Ba [Fleet Adult] 133 ml RECTAL DAILY PRN PRN Reason: Constipation Bisacodyl [Dulcolax] 10 mg RECTAL DAILY PRN PRN Reason: Constipation Acetaminophen [Tylenol] 975 mg PO Q6H PRN PRN Reason: Pain Or Fever > 100.5 Calcium Carb-Mag Carb-Folic [Magnebind 400] 1 tab PO AC-TID Lanthanum Carbonate 1,000 mg PO AC-TID Velphoro Tablet 500 Mg 500 mg PO DAILY Vit B Complx C/Folic Acid/Zinc [Renaplex Tablet] 1 tab PO DAILY@1700 predniSONE 20 mg PO DAILY Pantoprazole Sodium [Protonix] 40 mg PO DAILY@0600 Nepho Supplement 240 ml PO HS Lidocaine 5% Patch [Lidoderm 5% Patch] 1 patch TOPICAL DAILY Gentamicin 0.1% Cream 1 applic TOPICAL DAILY Darbepoetin Kenan [Aranesp] 40 mcg SQ FR@1700 Biotene Dry Mouth Liquid 15 ml PO DAILY Acetaminophen-Codeine 300-30mg [Tylenol w/codeine #3] 1 tab PO Q6H PRN #12 tab PRN Reason: Pain Discontinued Acetaminophen-Codeine 300-30mg [Tylenol w/codeine #3] 1 tab PO Q4H PRN PRN Reason: Pain traMADol HCl [Ultram] 50 mg PO Q6HR PRN PRN Reason: Pain Sevelamer [Renvela] 800 mg PO AC-TID INSULIN ASPART (NovoLOG) [NovoLOG (formulary)] See Protocol SQ AC-TID Amiodarone [Cordarone] 200 mg PO BID Insulin Aspart [NovoLOG] See Protocol SQ HS Louann-Tussin 10 ml PO Q4H PRN PRN Reason: Cough Discharge Medication List Gemfibrozil [Lopid] 600 mg PO DAILY 03/06/17 [History] Polyethylene Glycol 3350 [Miralax] 17 gm PO DAILY 07/12/17 [History] Acetaminophen [Tylenol] 975 mg PO Q6H PRN 12/18/18 [History] Biotene Dry Mouth Liquid 15 ml PO DAILY 12/18/18 [History] Bisacodyl [Dulcolax] 10 mg RECTAL DAILY PRN 12/18/18 [History] Calcium Carb-Mag Carb-Folic [Magnebind 400] 1 tab PO AC-TID 12/18/18 [History] Darbepoetin Kenan [Aranesp] 40 mcg SQ FR@1700 12/18/18 [History] Gentamicin 0.1% Cream 1 applic TOPICAL DAILY 12/18/18 [History] Lanthanum Carbonate 1,000 mg PO AC-TID 12/18/18 [History] Lidocaine 5% Patch [Lidoderm 5% Patch] 1 patch TOPICAL DAILY 12/18/18 [History] Na Phos,M-B/Na Phos,Di-Ba [Fleet Adult] 133 ml RECTAL DAILY PRN 12/18/18 [History] Nepho Supplement 240 ml PO HS 12/18/18 [History] Ondansetron HCl [Zofran] 4 mg PO Q6H PRN 12/18/18 [History] Pantoprazole Sodium [Protonix] 40 mg PO DAILY@0600 12/18/18 [History] Velphoro Tablet 500 Mg 500 mg PO DAILY 12/18/18 [History] Vit B Complx C/Folic Acid/Zinc [Renaplex Tablet] 1 tab PO DAILY@1700 12/18/18 [History] predniSONE 20 mg PO DAILY 12/18/18 [History] Acetaminophen-Codeine 300-30mg [Tylenol w/codeine #3] 1 tab PO Q6H PRN #12 tab 01/02/19 [Rx] Amiodarone [Cordarone] 200 mg PO DAILY tab 01/02/19 [Rx] Atenolol [Tenormin] 12.5 mg PO QAM dose 01/02/19 [Rx] Atorvastatin [Lipitor] 40 mg PO DAILY tab 01/02/19 [Rx] Fluconazole [Diflucan] 200 mg PO DAILY #1 tab 01/02/19 [Rx] INSULIN ASPART (NovoLOG) [NovoLOG (formulary)] 0 unit SQ ACHS vial 01/02/19 [Rx] Insulin Detemir (Levemir) [Levemir] 6 unit SQ HS syr 01/02/19 [Rx] Ipratropium-Albuterol Nebulize [Duoneb 0.5 mg-3 mg/3 ml Soln] 3 ml INHALATION RT-Q2H PRN ampul.neb 01/02/19 [Rx] Lidocaine Viscous 2% [Xylocaine Viscous] 5 ml MUCOUS MEM ACHS ml 01/02/19 [Rx] Mag Hydrox/Al Hydrox/Simeth [Maalox] 30 ml PO ACHS cup 01/02/19 [Rx] Midodrine [ProAmatine] 10 mg PO AC-TID PRN tab 01/02/19 [Rx] Mirtazapine [Remeron] 15 mg PO HS tab 01/02/19 [Rx] Non-Formulary Drug [Non Formulary Drug] 1 each PO ACHS #40 misc 01/02/19 [Rx] Nystatin 100,000 Unit/ml Susp [Mycostatin Oral Susp] 3,000,000 unit PO ACHS cup 01/02/19 [Rx] Sevelamer [Renvela] 2,400 mg PO BID tab 01/02/19 [Rx] diphenhydrAMINE ELIXIR [Benadryl Elixir] 75 mg PO ACHS cup 01/02/19 [Rx] Follow up Appointment(s)/Referral(s): Juan Ramon Maddox MD [Primary Care Provider] - 1 Week Marcel Chun DO [STAFF PHYSICIAN] - 1 Week Vitor Girard MD [STAFF PHYSICIAN] - 1 Week Activity/Diet/Wound Care/Special Instructions: benadryl, lidocaine, maalox swish and spit. Discharge Disposition: TRANSFER TO SNF/ECF
[2019-01-02 11:16] LABS: Glucose,Whole Blood 123 mg/dL (75-99)
[2019-01-02] MEDS: SODIUM CHLORIDE 0.9% 1,000 ML IV SCH (11:20)
[2019-01-02 12:31] VITALS: BP 117/67; PULSE 80; RESP 14; TEMP 98.6
[2019-01-02] MEDS: MULTIVITAMINS, THERA 1 EACH TAB PO SCH (12:35)
[2019-01-02] MEDS: FLUCONAZOLE IN NACL,ISO-OSM 100 MG in SALINE 1 50ML.BAG IVPB SCH (12:43)
--- NOTE | 2019-01-02 20:53 | PN ---
PROGRESS NOTE Patient is seen for followup for end-stage renal disease. He continues to have pain in his mouth and therefore does not want to eat much. There are plans for discharge to [facility] today. Patient is maintained on oral lidocaine gel. He is also being treated for thrush. He has had good UF with 1.5% dialysate. No other significant complaints this morning. Blood pressure was 147/71, heart rate 79 per minute. Patient is afebrile. EXAMINATION OF THE HEART: S1 and S2. EXAMINATION OF LUNGS: Bilateral breath sounds are heard. ABDOMEN: Soft, non-tender. Examination of lower extremities shows no significant edema. Labs show sodium of 133, potassium 3.8. ASSESSMENT: 1. End-stage renal disease, on peritoneal dialysis. Continue current PD exchanges. 2. Hypokalemia, status post replacement. 3. Influenza A with significant debility. 4. Fluid overload, currently improved. 5. Recent hip fracture, status post open reduction internal fixation. 6. Atrial fibrillation, initially with rapid ventricular response, currently with controlled ventricular response, maintained on Eliquis. 7. Anemia of chronic disease, maintained on Aranesp. 8. Oropharyngeal candidiasis, maintained on IV Diflucan, viscous lidocaine. PLAN: Patient is stable for discharge from nephrology standpoint. Continue off of hydrocortisone for now. Serum cortisol level was not low. Continue with the phosphate binders. The PD fluid will be adjusted as outpatient. For now I will discharge the patient on 1.5% solutions q.6 hours. MMODL / IJN: [id number] /
[2019-01-03] MEDS ORDERED: FLUCONAZOLE 100 MG TAB PO SCH (13:00)
== END 2019-01-02 19:32 | DRG 291 ==
LOC: EC 01:26 → 3SCARD 06:00 → 2SICU 12-22 04:13 → 3SCARD 12-22 04:54 → 2SICU 12-22 05:33 → 3NMEDONC 12-28 06:24
PROVIDERS: ADMIT Internal Medicine; ATTEND Internal Medicine
PROC: 3E1M39Z Irrigation of Peritoneal Cavity using Dialysate, Percutaneous Approach (ICD-10-PCS; principal; 2018-12-18)
PROC: 5A09357 Assistance with Respiratory Ventilation, Less than 24 Consecutive Hours, Continuous Positive Airway Pressure (ICD-10-PCS; 2018-12-18)
PROC: 02H633Z Insertion of Infusion Device into Right Atrium, Percutaneous Approach (ICD-10-PCS; 2018-12-23)
PROC: 0DH67UZ Insertion of Feeding Device into Stomach, Via Natural or Artificial Opening (ICD-10-PCS; 2018-12-24)
PROC: 3E0G76Z Introduction of Nutritional Substance into Upper GI, Via Natural or Artificial Opening (ICD-10-PCS; 2018-12-24)
DX: I13.2 Hypertensive heart and chronic kidney disease with heart failure and with stage 5 chronic kidney disease, or end stage renal disease (principal); J96.01 Acute respiratory failure with hypoxia; J10.00 Influenza due to other identified influenza virus with unspecified type of pneumonia; E43 Unspecified severe protein-calorie malnutrition; G93.41 Metabolic encephalopathy; N18.6 End stage renal disease; I50.23 Acute on chronic systolic (congestive) heart failure; E87.2 Acidosis; J44.0 Chronic obstructive pulmonary disease with (acute) lower respiratory infection; E87.1 Hypo-osmolality and hyponatremia; Z68.1 Body mass index [BMI] 19.9 or less, adult; F33.9 Major depressive disorder, recurrent, unspecified; K92.2 Gastrointestinal hemorrhage, unspecified; B37.0 Candidal stomatitis; E27.40 Unspecified adrenocortical insufficiency; L89.152 Pressure ulcer of sacral region, stage 2; I95.89 Other hypotension; E11.40 Type 2 diabetes mellitus with diabetic neuropathy, unspecified; E11.22 Type 2 diabetes mellitus with diabetic chronic kidney disease; E87.5 Hyperkalemia; I27.20 Pulmonary hypertension, unspecified; J84.89 Other specified interstitial pulmonary diseases; I25.5 Ischemic cardiomyopathy; J20.9 Acute bronchitis, unspecified; I48.0 Paroxysmal atrial fibrillation; I34.0 Nonrheumatic mitral (valve) insufficiency; D63.1 Anemia in chronic kidney disease; I25.10 Atherosclerotic heart disease of native coronary artery without angina pectoris; E78.5 Hyperlipidemia, unspecified; R74.8 Abnormal levels of other serum enzymes; G89.4 Chronic pain syndrome; S72.001D Fracture of unspecified part of neck of right femur, subsequent encounter for closed fracture with routine healing; M81.0 Age-related osteoporosis without current pathological fracture; K64.9 Unspecified hemorrhoids; R19.7 Diarrhea, unspecified; E87.6 Hypokalemia; E03.9 Hypothyroidism, unspecified; K21.9 Gastro-esophageal reflux disease without esophagitis; Z66 Do not resuscitate; Z79.899 Other long term (current) drug therapy; Z79.4 Long term (current) use of insulin; Z79.52 Long term (current) use of systemic steroids; Z98.42 Cataract extraction status, left eye; Z98.41 Cataract extraction status, right eye; Z99.2 Dependence on renal dialysis; Z96.1 Presence of intraocular lens; Z95.5 Presence of coronary angioplasty implant and graft; Z88.5 Allergy status to narcotic agent; Z82.49 Family history of ischemic heart disease and other diseases of the circulatory system
CPT/HCPCS: 36415; 71045; 71046; 80048; 80051; 80053; 82140; 82533; 82550; 82553; 83605; 83735; 83880; 84100; 84443; 84484; 84520; 85025; 85027; 85610; 85730; 87040; 87070; 87081; 87205; 87324; 87430; 87502; 93005; 93306; 94640; 94660; 94760; 96365; 96366; 96368; 96372; 96375; 99285

== ENCOUNTER 2019-01-03 12:46 | Inpatient (IN) | payer MEDICARE ==
[2019-01-03] MEDS ORDERED: ACETAMINOPHEN TAB 500 MG TAB PO STA (12:58)
[2019-01-03] MEDS ORDERED: IBUPROFEN 600 MG TAB PO STA (12:58)
[2019-01-03] MEDS: SODIUM CHLORIDE 0.9% 500 ML 500 ML IV SCH ×3 (13:22→18:00)
--- NOTE | 2019-01-03 13:24 | ED ---
General Adult HPI - General Chief complaint: GI Bleed Stated complaint: lethargic Time Seen by Provider: 01/03/19 12:50 Source: patient, EMS, RN notes reviewed Mode of arrival: EMS Limitations: no limitations - History of Present Illness Initial comments: Is a 73-year-old male presents emergency Department after having had dialysis today. Patient comes in today because at the snf they noticed positive blood per rectum. Patient denies any pain patient denies any cough patient denies any difficulty breathing shortest breath per patient denies chest pain. Patient has headache patient denies numbness weakness. Patient denies abdominal pain patient denies nausea vomiting or diarrhea. Patient is alert and oriented 2. There is no caregiver or family member with the patient so no further history is available. - Related Data Home Medications Medication Instructions Recorded Confirmed Gemfibrozil [Lopid] 600 mg PO DAILY 03/06/17 01/03/19 Polyethylene Glycol 3350 [Miralax] 17 gm PO DAILY 07/12/17 01/03/19 Acetaminophen [Tylenol] 975 mg PO Q6H PRN 12/18/18 01/03/19 Biotene Dry Mouth Liquid 15 ml PO DAILY 12/18/18 01/03/19 Bisacodyl [Dulcolax] 10 mg RECTAL DAILY PRN 12/18/18 01/03/19 Calcium Carb-Mag Carb-Folic 1 tab PO AC-TID 12/18/18 01/03/19 [Magnebind 400] Gentamicin 0.1% Cream 1 applic TOPICAL DAILY 12/18/18 01/03/19 Lanthanum Carbonate 1,000 mg PO AC-TID 12/18/18 01/03/19 Lidocaine 5% Patch [Lidoderm 5% 1 patch TOPICAL DAILY 12/18/18 01/03/19 Patch] Na Phos,M-B/Na Phos,Di-Ba [Fleet 133 ml RECTAL DAILY PRN 12/18/18 01/03/19 Adult] Nepho Supplement 240 ml PO HS 12/18/18 01/03/19 Ondansetron HCl [Zofran] 4 mg PO Q6H PRN 12/18/18 01/03/19 Pantoprazole Sodium [Protonix] 40 mg PO DAILY@0600 12/18/18 01/03/19 Velphoro Tablet 500 Mg 500 mg PO DAILY 12/18/18 01/03/19 Vit B Complx C/Folic Acid/Zinc 1 tab PO DAILY@1700 12/18/18 01/03/19 [Renaplex Tablet] Atenolol [Tenormin] 12.5 mg PO DAILY 01/03/19 01/03/19 Epoetin Kenan [Procrit] 10 unit SQ FR@1700 01/03/19 01/03/19 INSULIN ASPART (NovoLOG) [NovoLOG See Protocol SQ ACHS 01/03/19 01/03/19 (formulary)] Magnesium Hydroxide [Milk of 2,400 mg PO DAILY PRN 01/03/19 01/03/19 Magnesia] Mouth Wash 5 ml PO Q6H PRN 01/03/19 01/03/19 Sevelamer [Renvela] 2,400 mg PO BID@0800,1700 01/03/19 01/03/19 Previous Rx's Medication Instructions Recorded Acetaminophen-Codeine 300-30mg 1 tab PO Q6H PRN #12 tab 01/02/19 [Tylenol w/codeine #3] Amiodarone [Cordarone] 200 mg PO DAILY tab 01/02/19 Atorvastatin [Lipitor] 40 mg PO DAILY tab 01/02/19 Insulin Detemir (Levemir) [Levemir] 6 unit SQ HS syr 01/02/19 Ipratropium-Albuterol Nebulize 3 ml INHALATION RT-Q2H PRN 01/02/19 [Duoneb 0.5 mg-3 mg/3 ml Soln] ampul.neb Lidocaine Viscous 2% [Xylocaine 5 ml MUCOUS MEM ACHS ml 01/02/19 Viscous] Midodrine [ProAmatine] 10 mg PO AC-TID PRN tab 01/02/19 Mirtazapine [Remeron] 15 mg PO HS tab 01/02/19 Allergies Allergy/AdvReac Type Severity Reaction Status Date / Time hydromorphone [From Dilaudid] Allergy Hallucinati Verified 01/03/19 13:29 ons garlic AdvReac Diarrhea Verified 01/03/19 13:29 prednisone AdvReac Increased Verified 01/03/19 13:29 Blood Pressure sour cream AdvReac Diarrhea Uncoded 01/03/19 12:51 Review of Systems ROS Statement: Those systems with pertinent positive or pertinent negative responses have been documented in the HPI. ROS Other: All systems not noted in ROS Statement are negative. Past Medical History Past Medical History: Atrial Fibrillation, Coronary Artery Disease (CAD), Diabetes Mellitus, Dialysis, Hyperlipidemia, Hypertension, Osteoarthritis (OA), Prostate Disorder, Renal Disease, Thyroid Disorder Additional Past Medical History / Comment(s): PERITONEAL DIALYSIS (CAPD).Hx. cataracts removed bilat 2003 Hx. kidney biopsy 2012, multiple compression fractures History of Any Multi-Drug Resistant Organisms: None Reported Past Surgical History: Heart Catheterization With Stent Additional Past Surgical History / Comment(s): FIstula left arm. Hx. carotid artery surgery 2005; left carotid endarterectomy Past Anesthesia/Blood Transfusion Reactions: No Reported Reaction Date of Last Stent Placement:: 2011 Past Psychological History: Anxiety Smoking Status: Never smoker Past Alcohol Use History: None Reported Past Drug Use History: None Reported - Past Family History Father Additional Family Medical History / Comment(s): Hx. father "brights disease" age 47 Mom CHF at 81 Brother(s) Family Medical History: Deep Vein Thrombosis (DVT) Mother Family Medical History: Congestive Heart Failure (CHF) Additional Family Medical History / Comment(s): Mother of CHF at the age of 81yrs. General Exam - General Exam Comments Initial Comments: GENERAL: Patient is well-developed and well-nourished. Patient is nontoxic and well- hydrated and is in no acute distress. ENT: Neck is soft and supple. No significant lymphadenopathy is noted. Oropharynx is clear. Moist mucous membranes. Neck has full range of motion without eliciting any pain. EYES: The sclera were anicteric and conjunctiva were pink and moist. Extraocular movements were intact and pupils were equal round and reactive to light. Eyelids were unremarkable. PULMONARY: Unlabored respirations. Good breath sounds bilaterally. No audible rales rhonchi or wheezing was noted. CARDIOVASCULAR: There is a regular rate and rhythm without any murmurs gallops or rubs. ABDOMEN: Soft and nontender with normal bowel sounds. No palpable organomegaly was noted. There is no palpable pulsatile mass. RECTAL: Rectal exam shows gross blood. SKIN: Skin is clear with no lesions or rashes and otherwise unremarkable. NEUROLOGIC: Patient is alert and oriented 2. Cranial nerves II through XII are grossly intact. Motor and sensory are also intact. Normal speech, volume and content. Symmetrical smile. MUSCULOSKELETAL: Normal extremities with adequate strength and full range of motion. No lower extremity swelling or edema. No calf tenderness. LYMPHATICS: No significant lymphadenopathy is noted PSYCHIATRIC: Normal psychiatric evaluation. Limitations: no limitations Course Vital Signs 01/03/19 01/03/19 01/03/19 12:48 13:00 14:01 Temperature 100.0 F H Pulse Rate 82 88 73 Respiratory 16 Rate Blood Pressure 115/68 104/68 O2 Sat by Pulse 96 97 95 Oximetry 01/03/19 01/03/19 01/03/19 14:08 14:10 14:16 Temperature 98.0 F Pulse Rate 74 70 70 Respiratory 18 Rate Blood Pressure 90/56 90/56 91/55 O2 Sat by Pulse 94 L 96 Oximetry 01/03/19 14:20 Temperature Pulse Rate 70 Respiratory Rate Blood Pressure 91/55 O2 Sat by Pulse 95 Oximetry Medical Decision Making - Medical Decision Making EKG shows normal sinus rhythm at 81 bpm WI interval 248 QRS is 94 Q-T intervals 412 QTC is 478. Patient's EKG shows no ST segment elevation or depression. Family arrived and stated that patient's had similar symptoms before usually because discussed but when he has his first bowel movement there is quite a bit of blood and it slowly tapers off. Patient's according to family recently had a colonoscopy and nothing significant was found. I spoke with the primary medical care doctor and he agreed to admit the patient admitted the patient I consult to GI and a repeat CBC. Chest x-ray shows improvement over the past chest x-ray. - Lab Data Result diagrams: 01/03/19 13:10 01/03/19 13:10 Lab Results 01/03/19 01/03/19 01/03/19 Range/Units 13:10 13:10 13:10 WBC 5.9 (3.8-10.6) k/uL RBC 3.93 L (4.30-5.90) m/uL Hgb 10.7 L (13.0-17.5) gm/dL Hct 34.3 L (39.0-53.0) % MCV 87.4 (80.0-100.0) fL MCH 27.3 (25.0-35.0) pg MCHC 31.2 (31.0-37.0) g/dL RDW 17.8 H (11.5-15.5) % Plt Count 310 (150-450) k/uL Neutrophils % 77 % Lymphocytes % 12 % Monocytes % 7 % Eosinophils % 1 % Basophils % 0 % Neutrophils # 4.6 (1.3-7.7) k/uL Lymphocytes # 0.7 L (1.0-4.8) k/uL Monocytes # 0.4 (0-1.0) k/uL Eosinophils # 0.1 (0-0.7) k/uL Basophils # 0.0 (0-0.2) k/uL Hypochromasia Slight Poikilocytosis Slight Anisocytosis Slight PT (9.0-12.0) sec INR (<1.2) APTT (22.0-30.0) sec Sodium 134 L (137-145) mmol/L Potassium 3.6 (3.5-5.1) mmol/L Chloride 93 L (98-107) mmol/L Carbon Dioxide 32 H (22-30) mmol/L Anion Gap 9 mmol/L BUN 61 H (9-20) mg/dL Creatinine 6.17 H (0.66-1.25) mg/dL Est GFR (CKD-EPI)AfAm 9 (>60 ml/min/1.73 sqM) Est GFR (CKD-EPI)NonAf 8 (>60 ml/min/1.73 sqM) Glucose 75 (74-99) mg/dL Plasma Lactic Acid Zhen (0.7-2.0) mmol/L Calcium 8.2 L (8.4-10.2) mg/dL Total Bilirubin 0.6 (0.2-1.3) mg/dL AST 63 H (17-59) U/L ALT 54 (21-72) U/L Alkaline Phosphatase 117 (38-126) U/L Troponin I (0.000-0.034) ng/mL Total Protein 5.5 L (6.3-8.2) g/dL Albumin 2.5 L (3.5-5.0) g/dL Blood Type A Negative Blood Type Recheck No Antibody Screen NEGATIVE Spec Expiration Date 01/06/2019 - 230901/03/19 01/03/19 01/03/19 Range/Units 13:10 13:10 13:10 WBC (3.8-10.6) k/uL RBC (4.30-5.90) m/uL Hgb (13.0-17.5) gm/dL Hct (39.0-53.0) % MCV (80.0-100.0) fL MCH (25.0-35.0) pg MCHC (31.0-37.0) g/dL RDW (11.5-15.5) % Plt Count (150-450) k/uL Neutrophils % % Lymphocytes % % Monocytes % % Eosinophils % % Basophils % % Neutrophils # (1.3-7.7) k/uL Lymphocytes # (1.0-4.8) k/uL Monocytes # (0-1.0) k/uL Eosinophils # (0-0.7) k/uL Basophils # (0-0.2) k/uL Hypochromasia Poikilocytosis Anisocytosis PT 12.0 (9.0-12.0) sec INR 1.1 (<1.2) APTT 29.6 (22.0-30.0) sec Sodium (137-145) mmol/L Potassium (3.5-5.1) mmol/L Chloride (98-107) mmol/L Carbon Dioxide (22-30) mmol/L Anion Gap mmol/L BUN (9-20) mg/dL Creatinine (0.66-1.25) mg/dL Est GFR (CKD-EPI)AfAm (>60 ml/min/1.73 sqM) Est GFR (CKD-EPI)NonAf (>60 ml/min/1.73 sqM) Glucose (74-99) mg/dL Plasma Lactic Acid Zhen 1.0 (0.7-2.0) mmol/L Calcium (8.4-10.2) mg/dL Total Bilirubin (0.2-1.3) mg/dL AST (17-59) U/L ALT (21-72) U/L Alkaline Phosphatase (38-126) U/L Troponin I 0.091 H* (0.000-0.034) ng/mL Total Protein (6.3-8.2) g/dL Albumin (3.5-5.0) g/dL Blood Type Blood Type Recheck Antibody Screen Spec Expiration Date Critical Care Time Critical Care Time: Yes Total Critical Care Time: 35 Disposition Clinical Impression: Lower GI bleed Disposition: ADMITTED IP TO THIS HOSP Referrals: Juan Ramon Maddox MD [Primary Care Provider] - 1-2 days Time of Disposition: 14:37
[2019-01-03 13:35] LABS: Anisocytosis Slight; Basophils % (A) 0 %; Eosinophils # (A) 0.1 k/uL (0-0.7); Eosinophils % (A) 1 %; HCT 34.3 % (39.0-53.0); HGB 10.7 gm/dL (13.0-17.5); Hypochromasia Slight; Lymphocytes # (A) 0.7 k/uL (1.0-4.8); Lymphocytes % (A) 12 %; MCH 27.3 pg (25.0-35.0); MCHC 31.2 g/dL (31.0-37.0); MCV 87.4 fL (80.0-100.0); Monocytes # (A) 0.4 k/uL (0-1.0); Monocytes % (A) 7 %; Neutrophils # (A) 4.6 k/uL (1.3-7.7); Neutrophils % (A) 77 %; Platelet Count 310 k/uL (150-450); Poikilocytosis Slight; RBC 3.93 m/uL (4.30-5.90); RDW 17.8 % (11.5-15.5); WBC 5.9 k/uL (3.8-10.6)
[2019-01-03 13:36] LABS: INR 1.1 (<1.2); Partial Thromboplastin Time 29.6 sec (22.0-30.0)
[2019-01-03 13:39] LABS: Albumin 2.5 g/dL (3.5-5.0); Calcium 8.2 mg/dL (8.4-10.2); Potassium 3.6 mmol/L (3.5-5.1); Total Bilirubin 0.6 mg/dL (0.2-1.3); Total Protein 5.5 g/dL (6.3-8.2)
--- NOTE | 2019-01-03 14:07 | XR ---
EXAMINATION TYPE: XR chest 2V DATE OF EXAM: 01/03/2019 COMPARISON: 12/27/2018 HISTORY: Shortness of breath, fever and lethargy TECHNIQUE: Frontal and lateral views of the chest are obtained. FINDINGS: Patchy left midlung opacity is subtly seen, increased from the prior. Remainder the lungs are overall clear with low lung volumes redemonstrated. Cardiomediastinal silhouette is mildly enlarg ed. Again there is mild interstitial edema although improved from the prior. No pneumothorax or pleur al effusion. IMPRESSION: Improved interstitial edema. Left midlung patchy opacity may represent atelectasis or de veloping pneumonia
[2019-01-03] MEDS ORDERED: SODIUM CHLORIDE 0.9% 1,000 ML IV ONE (14:47)
[2019-01-03] MEDS ORDERED: SODIUM CHLORIDE 0.9% 500 ML 500 ML IV ONE (14:47)
[2019-01-03] MEDS ORDERED: DEXTROSE 50%-WATER 50 ML SYRINGE IVP ONE (16:14)
[2019-01-03 16:25] LABS: Glucose,Whole Blood 66 mg/dL (75-99)
[2019-01-03] MEDS: INSULIN ASPART (NovoLOG) 100 UNIT/ML VIAL SQ SCH ×2 (16:48→20:29)
[2019-01-03 17:02] LABS: Glucose,Whole Blood 203 mg/dL (75-99)
[2019-01-03] MEDS ORDERED: Potassium Replacement Protocol 1 EACH MISC MISCELLANE PRN (17:54)
[2019-01-03] MEDS: PANTOPRAZOLE 40 MG/10 ML VIAL IV SCH (18:06)
[2019-01-03] MEDS: POTASSIUM CHLORIDE 10 MEQ in WATER FOR INJECTION 1 100ML.BAG IVPB SCH ×3 (18:06→23:09)
[2019-01-03 19:13] LABS: Anisocytosis Slight; Basophils % (A) 1 %; Eosinophils % (A) 1 %; Hypochromasia Slight; Lymphocytes # (A) 0.9 k/uL (1.0-4.8); Lymphocytes % (A) 20 %; MCH 28.1 pg (25.0-35.0); MCHC 32.1 g/dL (31.0-37.0); MCV 87.6 fL (80.0-100.0); Mean Platelet Volume 6.7; Monocytes # (A) 0.4 k/uL (0-1.0); Monocytes % (A) 9 %; Neutrophils # (A) 3.1 k/uL (1.3-7.7); Neutrophils % (A) 66 %; Platelet Count 251 k/uL (150-450); Poikilocytosis Slight; RBC 3.19 m/uL (4.30-5.90); RDW 17.9 % (11.5-15.5); WBC 4.7 k/uL (3.8-10.6)
[2019-01-03] MEDS: NOREPINEPHRINE 4 MG in SODIUM CHLORIDE 0.9% 250 ML IV SCH (20:00)
[2019-01-03 20:12] LABS: Glucose,Whole Blood 96 mg/dL (75-99)
[2019-01-03] MEDS ORDERED: INSULIN ASPART (NovoLOG) 100 UNIT/ML VIAL SQ SCH (21:00)
[2019-01-03] MEDS ORDERED: INSULIN DETEMIR (LEVEMIR) 100 UNIT/ML SYR SQ SCH (21:00)
[2019-01-03] MEDS: Acetaminophen-Codeine 300-30mg TAB PO PRN (21:18)
[2019-01-03] MEDS: MIRTAZAPINE 15 MG TAB PO SCH (21:36)
[2019-01-03] MEDS: DIALYSIS (PERIT 1.5%) 2,000 ML 30 G/2,000 ML BAG INTRAPERIT SCH (23:00)
[2019-01-03] MEDS ORDERED: LIDOCAINE VISCOUS 2% 15 ML CUP MUCOUS MEM PRN (23:41)
[2019-01-04 00:02] LABS: Glucose,Whole Blood 94 mg/dL (75-99)
[2019-01-04] MEDS: HYDROCORTISONE SUCCINATE 100 MG/2 ML VIAL IV SCH ×3 (00:08→16:33)
[2019-01-04] MEDS: CLOTRIMAZOLE TROCHE 10 MG TROCHE MUCOUS MEM SCH ×2 (00:09→05:31)
[2019-01-04] MEDS: INSULIN ASPART (NovoLOG) 100 UNIT/ML VIAL SQ SCH ×6 (00:12→20:46)
[2019-01-04] MEDS: SCOPOLAMINE 1.5MG/72HR PATCH TRANSDERM SCH (01:27)
[2019-01-04] MEDS: Acetaminophen-Codeine 300-30mg TAB PO PRN ×2 (01:27→05:31)
[2019-01-04] MEDS ORDERED: DIALYSIS (PERIT 1.5%) 2,000 ML 30 G/2,000 ML BAG INTRAPERIT SCH ×2 (01:30→03:00)
[2019-01-04] MEDS: POTASSIUM CHLORIDE 10 MEQ in WATER FOR INJECTION 1 100ML.BAG IVPB SCH (01:43)
[2019-01-04 01:54] LABS: Anisocytosis Slight; HCT 30.4 % (39.0-53.0); Hypochromasia Moderate; MCH 29.2 pg (25.0-35.0); MCHC 32.9 g/dL (31.0-37.0); MCV 88.8 fL (80.0-100.0); Mean Platelet Volume 7.8; Platelet Count 321 k/uL (150-450); Poikilocytosis Slight; RBC 3.43 m/uL (4.30-5.90); WBC 7.2 k/uL (3.8-10.6)
[2019-01-04] MEDS: DIALYSIS (PERIT 1.5%) 2,000 ML 30 G/2,000 ML BAG INTRAPERIT SCH ×3 (02:30→10:34)
[2019-01-04 02:39] LABS: Band Neutrophils % 5 %; Crenated RBC Present; Eosinophils # (M) 0.14 k/uL (0-0.7); Lymphocytes # (M) 1.22 k/uL (1.0-4.8); Metamyelocytes # (M) 0.07 k/uL (0); Metamyelocytes % 1 %; Monocytes # (M) 0.86 k/uL (0-1.0); Neutrophils % (M) 64 %; Nucleated Red Blood Cells 0 /100 WBC (0-0); Total Cells Counted 200
[2019-01-04 02:40] LABS: Large Platelets Present; Polychromasia Present
[2019-01-04 04:09] LABS: Glucose,Whole Blood 124 mg/dL (75-99)
[2019-01-04 05:47] LABS: Anisocytosis Slight; Basophils % (A) 0 %; Eosinophils % (A) 1 %; HGB 8.7 gm/dL (13.0-17.5); Hypochromasia Marked; Lymphocytes # (A) 0.6 k/uL (1.0-4.8); Lymphocytes % (A) 15 %; MCH 27.8 pg (25.0-35.0); MCHC 29.9 g/dL (31.0-37.0); MCV 92.9 fL (80.0-100.0); Mean Platelet Volume 7.6; Monocytes # (A) 0.2 k/uL (0-1.0); Monocytes % (A) 6 %; Neutrophils # (A) 2.8 k/uL (1.3-7.7); Neutrophils % (A) 76 %; Platelet Count 248 k/uL (150-450); Poikilocytosis Slight; RBC 3.12 m/uL (4.30-5.90); RDW 18.1 % (11.5-15.5); WBC 3.6 k/uL (3.8-10.6)
[2019-01-04 05:59] LABS: Albumin 1.9 g/dL (3.5-5.0); Calcium 6.5 mg/dL (8.4-10.2); Magnesium 1.7 mg/dL (1.6-2.3); Phosphorus 3.9 mg/dL (2.5-4.5); Potassium 3.4 mmol/L (3.5-5.1); Total Bilirubin 0.6 mg/dL (0.2-1.3); Total Protein 4.3 g/dL (6.3-8.2)
[2019-01-04] MEDS: MIDODRINE 5 MG TAB PO SCH ×3 (07:00→17:16)
[2019-01-04] MEDS ORDERED: POTASSIUM CHLORIDE 10 MEQ in WATER FOR INJECTION 1 100ML.BAG IVPB SCH (07:00)
[2019-01-04] MEDS ORDERED: MAGNESIUM SULFATE-D5W PMX 1 GM in DEXTROSE/WATER 1 100ML.BAG IVPB ONE (07:00)
[2019-01-04] MEDS: IPRATROPIUM-ALBUTEROL 3 ML NEB INHALATION PRN ×2 (07:43→10:23)
--- NOTE | 2019-01-04 07:44 | XR ---
EXAMINATION TYPE: XR chest 1V portable DATE OF EXAM: 01/04/2019 COMPARISON: 01/03/2019 HISTORY: Shortness of breath TECHNIQUE: Single frontal view of the chest is obtained. FINDINGS: Atherosclerotic change aorta. Bilateral consolidation small effusion. Interstitial pattern noted. Diffuse osteopenia. Vascular calcifications noted. IMPRESSION: Interstitial pattern with bilateral consolidation small effusion correlate for CHF. Othe rwise consider pneumonia.
[2019-01-04] MEDS ORDERED: POTASSIUM BICARBONATE/CIT AC 20 MEQ TABLET.EFF PO ONE ×2 (08:00→15:17)
[2019-01-04] MEDS ORDERED: DESMOPRESSIN ACETATE 17 MCG in SODIUM CHLORIDE 0.9% 50 ML IVPB ONE (08:07)
[2019-01-04] MEDS: PANTOPRAZOLE 40 MG/10 ML VIAL IV SCH (09:47)
[2019-01-04] MEDS: ATENOLOL 25 MG TAB PO SCH ×2 (09:52→12:54)
[2019-01-04] MEDS: LIDOCAINE 5% PATCH TOPICAL SCH (09:53)
[2019-01-04] MEDS: ATORVASTATIN 40 MG TAB PO SCH ×2 (09:54→12:54)
[2019-01-04] MEDS: AMIODARONE 200 MG TAB PO SCH ×2 (09:54→12:54)
[2019-01-04] MEDS: FENOFIBRATE 160 MG TAB PO SCH ×2 (09:55→12:54)
[2019-01-04] MEDS: MAG HYDROX/AL HYDROX/SIMETH 30 ML, LIDOCAINE VISCOUS 30 ML, diphenhydrAMINE ELIXIR 75 M... PO SCH ×12 (10:17→21:30)
[2019-01-04 10:23] LABS: Glucose,Whole Blood 185 mg/dL (75-99)
--- NOTE | 2019-01-04 10:59 | P.HPIM ---
History of Present Illness H&P Date: 01/03/19 Chief Complaint: Lower GI bleed This is a 73-year-old male one of Dr. Maddox with a previous medical history significant for CAD post-PCI and stent placement, atrial fibrillation, chronic systolic heart failure, and stage renal disease on peritoneal dialysis, hypertension and hypertensive cardio vascular disease, hyperlipidemia, enlarged prostate, severe protein calorie malnutrition, patient was just discharged from the hospital yesterday after a prolonged hospital stay almost a month when he was admitted to the hospital for acute hypoxemic respiratory failure due to combination of influenza pneumonia as well as acute on chronic systolic heart failure with fluid overload and he was just discharged yesterday to go to [facility] for physical therapy and rehabilitation and prior to that he was hospitalized at our institution back in October 2018 for open reduction and internal fixation and IM nailing of the right hip due to the hip fracture, patient spent less than 24 hours at [facility] when he developed to have a significant bright red blood per rectum and he was immediately sent back to the ER at [facility] patient was admitted to the intensive care unit for evaluation by gastroenterology [employer] commissioners consultation was obtained from Dr. Smallwood, patient prognosis remains guarded. Review of Systems Constitutional: Reports anorexia, Reports chronic pain, Reports fatigue, Reports lethargy, Reports malaise, Reports weakness, Reports weight loss Eyes: Ears, nose, mouth and throat: Reports dysphagia, Reports mouth pain, Reports sore throat Cardiovascular: Reports shortness of breath, Denies chest pain, Denies decreased exercise tolerance, Denies dyspnea on exertion, Denies orthopnea, Denies rapid heart beat, Denies syncope Respiratory: Reports home oxygen, Denies congestion, Denies cough with sputum, Denies sleep apnea, Denies snoring, Denies wheezing Gastrointestinal: Reports BRBPR, Reports change in bowel habits, Reports hematochezia, Reports nausea, Denies abdominal pain, Denies coffee ground emesis, Denies dyspepsia, Denies excessive gas, Denies heartburn, Denies hematemesis, Denies jaundice, Denies lactose intolerance, Denies melena, Denies vomiting Genitourinary: Denies dysuria Musculoskeletal: Reports atrophy, Reports gait dysfunction, Reports muscle weakness, Reports myalgias Musculoskeletal: Integumentary: Denies pruritus, Denies rash Neurological: Denies numbness, Denies weakness Psychiatric: Reports anxiety, Reports depression, Reports sadness/tearfulness, Reports sleep disturbances, Denies suicidal ideation Endocrine: Denies fatigue, Denies weight change Past Medical History Past Medical History: Atrial Fibrillation, Coronary Artery Disease (CAD), Heart Failure, COPD, Diabetes Mellitus, Dialysis, Hyperlipidemia, Hypertension, Osteoarthritis (OA), Pneumonia, Prostate Disorder, Renal Disease, Thyroid Disorder Additional Past Medical History / Comment(s): Pt recently admitted to [facility] on 12/18/18 with acute hypoxic respiratory failure secondary possible to pneumonia, influenza A, acute on chronic CHF, impaired L ventricular function, Afib RVR, IDDM type II, ESRD with CAPD, lower GI bleed thougt likely hemorrhoid caused, oral candidiasis/mouth ulcers-dysphagia and difficulty chewing, severe protein calorie malnutrition, adrenal insufficiency, chronic anemia, mineral bone disorder, hypotension, chronic pain, multiple compression fractures in back and recent R hip fracture with surgery, hypothyroid, severe encephalopathy-thought d/t medication-was sent to [facility]. History of Any Multi-Drug Resistant Organisms: None Reported Past Surgical History: Heart Catheterization With Stent Additional Past Surgical History / Comment(s): Peritoneal catheter, renal biops y, L arm fistula, PCI with stent in 2011, L caratid endartetomy, bilateral cataract removals, IM nailing R hip. Past Anesthesia/Blood Transfusion Reactions: No Reported Reaction Date of Last Stent Placement:: 2011 Smoking Status: Never smoker - Past Family History Father Additional Family Medical History / Comment(s): Hx. father "brights disease" age 47 Mom CHF at 81 Brother(s) Family Medical History: Deep Vein Thrombosis (DVT) Mother Family Medical History: Congestive Heart Failure (CHF) Additional Family Medical History / Comment(s): Mother of CHF at the age of 81yrs. Medications and Allergies Home Medications Medication Instructions Recorded Confirmed Type Gemfibrozil [Lopid] 600 mg PO DAILY 03/06/17 01/03/19 History Polyethylene Glycol 3350 [Miralax] 17 gm PO DAILY 07/12/17 01/03/19 History Acetaminophen [Tylenol] 975 mg PO Q6H PRN 12/18/18 01/03/19 History Biotene Dry Mouth Liquid 15 ml PO DAILY 12/18/18 01/03/19 History Bisacodyl [Dulcolax] 10 mg RECTAL DAILY PRN 12/18/18 01/03/19 History Calcium Carb-Mag Carb-Folic 1 tab PO AC-TID 12/18/18 01/03/19 History [Magnebind 400] Gentamicin 0.1% Cream 1 applic TOPICAL DAILY 12/18/18 01/03/19 History Lanthanum Carbonate 1,000 mg PO AC-TID 12/18/18 01/03/19 History Lidocaine 5% Patch [Lidoderm 5% 1 patch TOPICAL DAILY 12/18/18 01/03/19 History Patch] Na Phos,M-B/Na Phos,Di-Ba [Fleet 133 ml RECTAL DAILY PRN 12/18/18 01/03/19 History Adult] Nepho Supplement 240 ml PO HS 12/18/18 01/03/19 History Ondansetron HCl [Zofran] 4 mg PO Q6H PRN 12/18/18 01/03/19 History Pantoprazole Sodium [Protonix] 40 mg PO DAILY@0600 12/18/18 01/03/19 History Velphoro Tablet 500 Mg 500 mg PO DAILY 12/18/18 01/03/19 History Vit B Complx C/Folic Acid/Zinc 1 tab PO DAILY@1700 12/18/18 01/03/19 History [Renaplex Tablet] Acetaminophen-Codeine 300-30mg 1 tab PO Q6H PRN #12 tab 01/02/19 01/03/19 Rx [Tylenol w/codeine #3] Amiodarone [Cordarone] 200 mg PO DAILY tab 01/02/19 01/03/19 Rx Atorvastatin [Lipitor] 40 mg PO DAILY tab 01/02/19 01/03/19 Rx Insulin Detemir (Levemir) [Levemir] 6 unit SQ HS syr 01/02/19 01/03/19 Rx Ipratropium-Albuterol Nebulize 3 ml INHALATION RT-Q2H PRN 01/02/19 01/03/19 Rx [Duoneb 0.5 mg-3 mg/3 ml Soln] ampul.neb Lidocaine Viscous 2% [Xylocaine 5 ml MUCOUS MEM ACHS ml 01/02/19 01/03/19 Rx Viscous] Midodrine [ProAmatine] 10 mg PO AC-TID PRN tab 01/02/19 01/03/19 Rx Mirtazapine [Remeron] 15 mg PO HS tab 01/02/19 01/03/19 Rx Atenolol [Tenormin] 12.5 mg PO DAILY 01/03/19 01/03/19 History Epoetin Kenan [Procrit] 10 unit SQ FR@1700 01/03/19 01/03/19 History INSULIN ASPART (NovoLOG) [NovoLOG See Protocol SQ ACHS 01/03/19 01/03/19 History (formulary)] Magnesium Hydroxide [Milk of 2,400 mg PO DAILY PRN 01/03/19 01/03/19 History Magnesia] Mouth Wash 5 ml PO Q6H PRN 01/03/19 01/03/19 History Sevelamer [Renvela] 2,400 mg PO BID@0800,1700 01/03/19 01/03/19 History Allergies Allergy/AdvReac Type Severity Reaction Status Date / Time hydromorphone [From Dilaudid] Allergy Hallucinati Verified 01/03/19 13:29 ons garlic AdvReac Diarrhea Verified 01/03/19 13:29 prednisone AdvReac Increased Verified 01/03/19 13:29 Blood Pressure sour cream AdvReac Diarrhea Uncoded 01/03/19 12:51 Physical Exam Vitals: Vital Signs Temp Pulse Resp BP Pulse Ox 01/03/19 17:00 61 19 115/67 95 01/03/19 16:45 64 17 103/54 94 L 01/03/19 16:30 72 17 107/61 85 L 01/03/19 16:15 65 10 L 107/61 97 01/03/19 16:11 66 15 95 01/03/19 16:00 10 L 01/03/19 15:45 97 F L 70 10 L 93/57 95 01/03/19 15:38 98.1 F 65 16 93/57 96 01/03/19 15:30 67 91/53 95 01/03/19 15:20 68 91/53 97 01/03/19 15:00 68 95/56 97 01/03/19 14:30 67 99/55 01/03/19 14:20 70 91/55 95 01/03/19 14:16 98.0 F 70 18 91/55 96 01/03/19 14:10 70 90/56 94 L 01/03/19 14:08 74 90/56 01/03/19 14:01 73 95 01/03/19 13:00 88 104/68 97 01/03/19 12:48 100.0 F H 82 16 115/68 96 Intake and Output 01/03/19 01/03/19 01/03/19 06:59 14:59 22:59 Intake Total 100 Output Total 0 Balance 100 Intake: IV 100 Potassium Chloride 10 meq 100 In Water For Injection 1 100ml.bag @ 100 mls/hr IVPB Q1HR LLUA Rx#: [id number] Sodium Chloride 0.9% 500 0 ml 500 ml @ 20 mls/hr IV .Q24H LULA Rx#:[id number] Output: Urine 0 Other: Weight 58.967 kg - Constitutional General appearance: mild distress, thin - EENT Eyes: anicteric sclerae, EOMI, PERRLA, no ptosis, no scleral icterus ENT: hearing grossly normal, NA/AT, no normal oropharynx, other (Tongue ulcers with thrush.), pharyngeal erythema, thrush Ears: - Neck Neck: no lymphadenopathy, normal ROM, no rigidity, no stridor, no thyromegaly Carotids: - Respiratory Respiratory: - Cardiovascular Rhythm: irregularly irregular Heart sounds: - Gastrointestinal General gastrointestinal: normal bowel sounds, soft, no tenderness, no umbilical hernia, no ventral hernia (There is PD catheter in place.) - Integumentary Integumentary: decreased turgor - Neurologic Neurologic: focal deficits - Musculoskeletal Musculoskeletal: generalized weakness - Psychiatric Psychiatric: A&O x's 3, no appropriate affect, intact judgment & insight Results CBC & Chem 7: 01/04/19 05:24 01/04/19 05:24 Labs: Abnormal Lab Results - Last 24 Hours (Table) 01/03/19 01/03/19 01/03/19 Range/Units 13:10 13:10 13:10 RBC 3.93 L (4.30-5.90) m/uL Hgb 10.7 L (13.0-17.5) gm/dL Hct 34.3 L (39.0-53.0) % RDW 17.8 H (11.5-15.5) % Lymphocytes # 0.7 L (1.0-4.8) k/uL Sodium 134 L (137-145) mmol/L Chloride 93 L (98-107) mmol/L Carbon Dioxide 32 H (22-30) mmol/L BUN 61 H (9-20) mg/dL Creatinine 6.17 H (0.66-1.25) mg/dL POC Glucose (mg/dL) (75-99) mg/dL Calcium 8.2 L (8.4-10.2) mg/dL AST 63 H (17-59) U/L Troponin I 0.091 H* (0.000-0.034) ng/mL Total Protein 5.5 L (6.3-8.2) g/dL Albumin 2.5 L (3.5-5.0) g/dL 01/03/19 01/03/19 Range/Units 16:12 16:50 RBC (4.30-5.90) m/uL Hgb (13.0-17.5) gm/dL Hct (39.0-53.0) % RDW (11.5-15.5) % Lymphocytes # (1.0-4.8) k/uL Sodium (137-145) mmol/L Chloride (98-107) mmol/L Carbon Dioxide (22-30) mmol/L BUN (9-20) mg/dL Creatinine (0.66-1.25) mg/dL POC Glucose (mg/dL) 66 L 203 H (75-99) mg/dL Calcium (8.4-10.2) mg/dL AST (17-59) U/L Troponin I (0.000-0.034) ng/mL Total Protein (6.3-8.2) g/dL Albumin (3.5-5.0) g/dL Thrombosis Risk Factor Assmnt - DVT/VTE Prophylaxis DVT/VTE Prophylaxis: Mechanical Prophylaxis ordered - Choose All That Apply Any of the Below Risk Factors Present?: Yes Other Risk Factors: Yes Each Risk Factor Represents 2 Points: Age 61-74 years Other congenital or acquired thrombophilia - If yes, enter type in comment: No Thrombosis Risk Factor Assessment Total Risk Factor Score: 2 Thrombosis Risk Factor Assessment Level: Low Risk Assessment and Plan Assessment: Assessment and plan: 1. Lower GI bleed of unclear etiology possible diverticular bleed. Type and cross and place on hold 2 units of packed red blood cells, transfuse for hemoglobin less than 7, keep the patient on nothing per mouth, GI consultation, Protonix 40 mg IV push every 12 hours, ICU consult for Dr. Smallwood. 2. Recent influenza a pneumonia. Patient did receive and finish Tamiflu treatment. 3. Severe thrush with tongue ulcers. Patient is currently on nothing per mouth. He just finished Diflucan yesterday. 4. Chronic systolic heart failure. Continue with current CAPD. Continue atenolol. 5. CAD post-PCI. Stable at this time. Continue atenolol 12.5 mg orally once every day. 6. Atrial fibrillation. Stable at this time. Continue atenolol 12.5 mg orally once every day. 7. Hypertension. Blood pressures pre-much controlled. 8. Hyperlipidemia. We will continue with Lopid 600 mg orally twice every day and Lipitor 40 mg orally once every day. 9. Adrenal insufficiency. Patient may need to be on hydrocortisone 50 mg IV push every 8 hours. 10. Severe protein calorie malnutrition. We will restart protein supplement when the patient is stable. 11. Depression. We will continue with Remeron 15 mg orally once every day. 12. Severe GERD. Continue with PPI. 13. Diabetes mellitus type 2. Currently on Levemir 6 units at bedtime along with a sliding scale insulin. 14. End-stage renal disease on CAPD. Consult nephrology. 15. Anemia of chronic kidney disease. Currently on Aranesp. 16. Admit to inpatient. Estimated length of stay 2 midnights. 17. No code. 18. Prognosis is very guarded.
--- NOTE | 2019-01-04 11:01 | P.CONS ---
History of Present Illness - Reason for Consult Consult date: 01/04/19 GI bleed Requesting physician: Carly Null - Chief Complaint GI bleeding - History of Present Illness 73-year-old gentleman end-stage renal disease CAPD, colonic diverticulosis, chronic pain syndrome, depression, constipation, atrial fibrillation, CAD, heart failure, diabetes, hyperlipidemia, recent pneumonia influenza A admitted with rectal bleeding. ECF noticed bright red blood per rectum with mild abdominal pain. Brother at bedside and states patient has been constipated and deals with this on a chronic basis however when discussing with medical service patient was experiencing diarrhea on his previous admission. Presently no active bleeding. He has multiple oral aphthous ulcers and candidiasis which is making it difficult for him to tolerate a diet. He was receiving Dobbhoff tube feedings on previous admission. Admission white count 4.7 hemoglobin 10.7 presently 8.7. MCV 92. Platelet 248. BUN 61. Creatinine 6.1. Sodium 136. Potassium 3.4. Previous hemoglobin on 12/30/2018 was 10.5. EGD colonoscopy May [address] Sanchez for evaluation of anemia and GI bleeding with findings of small hiatal hernia sigmoid diverticulosis. Review of Systems Constitutional: Denies fever, chills, sweats, weight gain, or loss. HEENT: Negative for migraines, blurred vision or loss, earaches, drainage, tinnitus, oral mucosal lesions, dysphagia, or odynophagia. Cardiac: Negative for chest pain, arrhythmias, or palpitation. Respiratory: Negative for shortness of breath, hemoptysis, cough, or sputum production. Gastrointestinal: See HPI for pertinent findings. Genitourinary: Negative for hematuria, urgency, frequency, polyuria, dysuria, or penile discharge. Musculoskeletal: Negative for muscle aches, swelling, arthritis, and arthralgias. Neurologic: Negative for stroke or TIA. Endocrine: Negative for thyroid problems. Skin: Negative for rash or itching. Psychiatric: Negative history for depression and anxiety Past Medical History Past Medical History: Atrial Fibrillation, Coronary Artery Disease (CAD), Heart Failure, COPD, Diabetes Mellitus, Dialysis, Hyperlipidemia, Hypertension, Osteoarthritis (OA), Pneumonia, Prostate Disorder, Renal Disease, Thyroid Disorder Additional Past Medical History / Comment(s): Pt recently admitted to [facility] on 12/18/18 with acute hypoxic respiratory failure secondary possible to pneumonia, influenza A, acute on chronic CHF, impaired L ventricular function, Afib RVR, IDDM type II, ESRD with CAPD, lower GI bleed thougt likely hemorrhoid caused, oral candidiasis/mouth ulcers-dysphagia and difficulty chewing, severe protein calorie malnutrition, adrenal insufficiency, chronic anemia, mineral bone disorder, hypotension, chronic pain, multiple compression fractures in back and recent R hip fracture with surgery, hypothyroid, severe encephalopathy-thought d/t medication-was [facility] to [facility]. History of Any Multi-Drug Resistant Organisms: None Reported Past Surgical History: Heart Catheterization With Stent Additional Past Surgical History / Comment(s): Peritoneal catheter, renal biopsy, L arm fistula, PCI with stent in 2011, L caratid endartetomy, bilateral cataract removals, IM nailing R hip. Past Anesthesia/Blood Transfusion Reactions: No Reported Reaction Date of Last Stent Placement:: 2011 Smoking Status: Never smoker - Past Family History Father Additional Family Medical History / Comment(s): Hx. father "brights disease" age 47 Mom CHF at 81 Brother(s) Family Medical History: Deep Vein Thrombosis (DVT) Mother Family Medical History: Congestive Heart Failure (CHF) Additional Family Medical History / Comment(s): Mother of CHF at the age of 81yrs. Medications and Allergies Home Medications Medication Instructions Recorded Confirmed Type Gemfibrozil [Lopid] 600 mg PO DAILY 03/06/17 01/03/19 History Polyethylene Glycol 3350 [Miralax] 17 gm PO DAILY 07/12/17 01/03/19 History Acetaminophen [Tylenol] 975 mg PO Q6H PRN 12/18/18 01/03/19 History Biotene Dry Mouth Liquid 15 ml PO DAILY 12/18/18 01/03/19 History Bisacodyl [Dulcolax] 10 mg RECTAL DAILY PRN 12/18/18 01/03/19 History Calcium Carb-Mag Carb-Folic 1 tab PO AC-TID 12/18/18 01/03/19 History [Magnebind 400] Gentamicin 0.1% Cream 1 applic TOPICAL DAILY 12/18/18 01/03/19 History Lanthanum Carbonate 1,000 mg PO AC-TID 12/18/18 01/03/19 History Lidocaine 5% Patch [Lidoderm 5% 1 patch TOPICAL DAILY 12/18/18 01/03/19 History Patch] Na Phos,M-B/Na Phos,Di-Ba [Fleet 133 ml RECTAL DAILY PRN 12/18/18 01/03/19 History Adult] Nepho Supplement 240 ml PO HS 12/18/18 01/03/19 History Ondansetron HCl [Zofran] 4 mg PO Q6H PRN 12/18/18 01/03/19 History Pantoprazole Sodium [Protonix] 40 mg PO DAILY@0600 12/18/18 01/03/19 History Velphoro Tablet 500 Mg 500 mg PO DAILY 12/18/18 01/03/19 History Vit B Complx C/Folic Acid/Zinc 1 tab PO DAILY@1700 12/18/18 01/03/19 History [Renaplex Tablet] Acetaminophen-Codeine 300-30mg 1 tab PO Q6H PRN #12 tab 01/02/19 01/03/19 Rx [Tylenol w/codeine #3] Amiodarone [Cordarone] 200 mg PO DAILY tab 01/02/19 01/03/19 Rx Atorvastatin [Lipitor] 40 mg PO DAILY tab 01/02/19 01/03/19 Rx Insulin Detemir (Levemir) [Levemir] 6 unit SQ HS syr 01/02/19 01/03/19 Rx Ipratropium-Albuterol Nebulize 3 ml INHALATION RT-Q2H PRN 01/02/19 01/03/19 Rx [Duoneb 0.5 mg-3 mg/3 ml Soln] ampul.neb Lidocaine Viscous 2% [Xylocaine 5 ml MUCOUS MEM ACHS ml 01/02/19 01/03/19 Rx Viscous] Midodrine [ProAmatine] 10 mg PO AC-TID PRN tab 01/02/19 01/03/19 Rx Mirtazapine [Remeron] 15 mg PO HS tab 01/02/19 01/03/19 Rx Atenolol [Tenormin] 12.5 mg PO DAILY 01/03/19 01/03/19 History Epoetin Kenan [Procrit] 10 unit SQ FR@1700 01/03/19 01/03/19 History INSULIN ASPART (NovoLOG) [NovoLOG See Protocol SQ ACHS 01/03/19 01/03/19 History (formulary)] Magnesium Hydroxide [Milk of 2,400 mg PO DAILY PRN 01/03/19 01/03/19 History Magnesia] Mouth Wash 5 ml PO Q6H PRN 01/03/19 01/03/19 History Sevelamer [Renvela] 2,400 mg PO BID@0800,1700 01/03/19 01/03/19 History Allergies Allergy/AdvReac Type Severity Reaction Status Date / Time hydromorphone [From Dilaudid] Allergy Hallucinati Verified 01/03/19 13:29 ons garlic AdvReac Diarrhea Verified 01/03/19 13:29 prednisone AdvReac Increased Verified 01/03/19 13:29 Blood Pressure sour cream AdvReac Diarrhea Uncoded 01/03/19 12:51 Physical Exam Vitals: Vital Signs Temp Pulse Resp BP Pulse Ox 01/04/19 07:56 68 01/04/19 07:45 68 01/04/19 07:00 67 22 131/72 94 L 01/04/19 06:00 71 16 124/67 95 01/04/19 05:00 63 15 128/72 93 L 01/04/19 04:00 68 23 125/75 95 01/04/19 03:00 70 16 130/71 93 L 01/04/19 02:00 70 21 137/72 95 01/04/19 01:00 71 15 100/89 95 01/04/19 00:00 98 F 64 12 107/62 97 01/03/19 23:03 62 15 101/56 96 01/03/19 23:00 64 15 113/63 96 01/03/19 22:00 64 7 L 110/82 97 01/03/19 21:00 63 17 98/56 97 01/03/19 20:00 97.9 F 66 19 114/66 99 01/03/19 19:00 60 11 L 97/59 98 01/03/19 18:45 58 L 12 79/52 97 01/03/19 18:30 58 L 10 L 77/50 97 01/03/19 18:15 57 L 11 L 103/60 97 01/03/19 18:00 60 15 113/69 98 01/03/19 17:45 61 12 116/65 98 01/03/19 17:30 73 10 L 110/62 98 01/03/19 17:15 65 15 116/59 95 01/03/19 17:00 61 19 115/67 95 01/03/19 16:45 64 17 103/54 94 L 01/03/19 16:30 72 17 107/61 85 L 01/03/19 16:15 65 10 L 107/61 97 01/03/19 16:11 66 15 95 01/03/19 16:00 10 L 01/03/19 15:45 97 F L 70 10 L 93/57 95 01/03/19 15:38 98.1 F 65 16 93/57 96 01/03/19 15:30 67 91/53 95 01/03/19 15:20 68 91/53 97 01/03/19 15:00 68 95/56 97 01/03/19 14:30 67 99/55 01/03/19 14:20 70 91/55 95 01/03/19 14:16 98.0 F 70 18 91/55 96 01/03/19 14:10 70 90/56 94 L 01/03/19 14:08 74 90/56 01/03/19 14:01 73 95 01/03/19 13:00 88 104/68 97 01/03/19 12:48 100.0 F H 82 16 115/68 96 Intake and Output 01/03/19 01/04/19 01/04/19 22:59 06:59 14:59 Intake Total 780 460 310 Output Total 0 0 0 Balance 780 460 310 Intake: IV 780 460 260 Magnesium Sulfate-D5w Pmx 100 1 gm In Dextrose/Water 1 100ml.bag @ 100 mls/hr IVPB ONCE ONE Rx#: [id number] Potassium Chloride 10 meq 200 300 100 In Water For Injection 1 100ml.bag @ 100 mls/hr IVPB Q1HR LULA Rx#: [id number] Sodium Chloride 0.9% 500 80 160 60 ml 500 ml @ 20 mls/hr IV .Q24H LULA Rx#:[id number] Sodium Chloride 0.9% 500 500 ml 500 ml @ 999 mls/hr IV .Q31M ONE Rx#:[id number] Intake, IV Titration 50 Amount Desmopressin Acetate 17 50 mcg In Sodium Chloride 0. 9% 50 ml @ 200 mls/hr IVPB ONCE ONE Rx#: [id number] Output: Urine 0 0 0 Other: Weight 57.3 kg General appearance: The patient is alert, in no acute distress. HET: Head is normocephalic and atraumatic. Pupils are equal and reactive. Oropharynx is without obvious candidiasis and oral aphthous ulcers. Neck: Supple without lymphadenopathy. Trachea midline. Heart: S1 S2. Lungs: No crackles or wheezes are heard. Slight diminishment in bilateral bases. Abdomen: Soft, nontender, nondistended with bowel sounds. No peritoneal signs. CAPD catheter without drainage or erythema. No palpable organomegaly or masses. Extremities: Normal skin color and turgor. No cyanosis, rash, ulceration, clubbing, or edema. Radial and pedal pulses are 2/4 bilaterally. Neurological: No focal deficits. Strength and sensation are grossly intact. Results CBC & Chem 7: 01/04/19 05:24 01/04/19 05:24 Labs: Abnormal Lab Results - Last 24 Hours (Table) 01/03/19 01/03/19 01/03/19 Range/Units 13:10 13:10 13:10 WBC (3.8-10.6) k/uL RBC 3.93 L (4.30-5.90) m/uL Hgb 10.7 L (13.0-17.5) gm/dL Hct 34.3 L (39.0-53.0) % MCHC (31.0-37.0) g/dL RDW 17.8 H (11.5-15.5) % Lymphocytes # 0.7 L (1.0-4.8) k/uL Metamyelocytes # (Man) (0) k/uL Sodium 134 L (137-145) mmol/L Potassium (3.5-5.1) mmol/L Chloride 93 L (98-107) mmol/L Carbon Dioxide 32 H (22-30) mmol/L BUN 61 H (9-20) mg/dL Creatinine 6.17 H (0.66-1.25) mg/dL Glucose (74-99) mg/dL POC Glucose (mg/dL) (75-99) mg/dL Calcium 8.2 L (8.4-10.2) mg/dL AST 63 H (17-59) U/L Troponin I 0.091 H* (0.000-0.034) ng/mL Total Protein 5.5 L (6.3-8.2) g/dL Albumin 2.5 L (3.5-5.0) g/dL 01/03/19 01/03/19 01/03/19 Range/Units 16:12 16:50 18:45 WBC (3.8-10.6) k/uL RBC 3.19 L (4.30-5.90) m/uL Hgb 9.0 L D (13.0-17.5) gm/dL Hct 28.0 L (39.0-53.0) % MCHC (31.0-37.0) g/dL RDW 17.9 H (11.5-15.5) % Lymphocytes # 0.9 L (1.0-4.8) k/uL Metamyelocytes # (Man) (0) k/uL Sodium (137-145) mmol/L Potassium (3.5-5.1) mmol/L Chloride (98-107) mmol/L Carbon Dioxide (22-30) mmol/L BUN (9-20) mg/dL Creatinine (0.66-1.25) mg/dL Glucose (74-99) mg/dL POC Glucose (mg/dL) 66 L 203 H (75-99) mg/dL Calcium (8.4-10.2) mg/dL AST (17-59) U/L Troponin I (0.000-0.034) ng/mL Total Protein (6.3-8.2) g/dL Albumin (3.5-5.0) g/dL 01/04/19 01/04/19 01/04/19 Range/Units 01:10 03:58 05:24 WBC 3.6 L (3.8-10.6) k/uL RBC 3.43 L 3.12 L (4.30-5.90) m/uL Hgb 10.0 L 8.7 L (13.0-17.5) gm/dL Hct 30.4 L 29.0 L (39.0-53.0) % MCHC 29.9 L (31.0-37.0) g/dL RDW 18.0 H 18.1 H (11.5-15.5) % Lymphocytes # 0.6 L (1.0-4.8) k/uL Metamyelocytes # (Man) 0.07 H (0) k/uL Sodium (137-145) mmol/L Potassium (3.5-5.1) mmol/L Chloride (98-107) mmol/L Carbon Dioxide (22-30) mmol/L BUN (9-20) mg/dL Creatinine (0.66-1.25) mg/dL Glucose (74-99) mg/dL POC Glucose (mg/dL) 124 H (75-99) mg/dL Calcium (8.4-10.2) mg/dL AST (17-59) U/L Troponin I (0.000-0.034) ng/mL Total Protein (6.3-8.2) g/dL Albumin (3.5-5.0) g/dL 01/04/19 Range/Units 05:24 WBC (3.8-10.6) k/uL RBC (4.30-5.90) m/uL Hgb (13.0-17.5) gm/dL Hct (39.0-53.0) % MCHC (31.0-37.0) g/dL RDW (11.5-15.5) % Lymphocytes # (1.0-4.8) k/uL Metamyelocytes # (Man) (0) k/uL Sodium 136 L (137-145) mmol/L Potassium 3.4 L (3.5-5.1) mmol/L Chloride 108 H (98-107) mmol/L Carbon Dioxide 21 L (22-30) mmol/L BUN 50 H (9-20) mg/dL Creatinine 4.66 H (0.66-1.25) mg/dL Glucose 110 H (74-99) mg/dL POC Glucose (mg/dL) (75-99) mg/dL Calcium 6.5 L (8.4-10.2) mg/dL AST (17-59) U/L Troponin I (0.000-0.034) ng/mL Total Protein 4.3 L (6.3-8.2) g/dL Albumin 1.9 L (3.5-5.0) g/dL Assessment and Plan (1) GI bleed Narrative/Plan: 73-year-old gentleman presents with mild abdominal pain rectal bleeding burgundy-colored in nature with acute blood loss anemia with underlying chronic pain syndrome, end-stage renal disease CAPD dependent history of colonic diverticulosis and constipation. Suspect rectal bleeding is colonic diverticular in nature however other differentials to consider is bleeding AVM, stercoral ulcer, possible inflammatory possible ischemic colitis. Current Visit: Yes Status: Acute Code(s): K92.2 - GASTROINTESTINAL HEMORRHAGE, UNSPECIFIED SNOMED Code(s): 73367128 (2) Constipation Current Visit: Yes Status: Acute Code(s): K59.00 - CONSTIPATION, UNSPECIFIED SNOMED Code(s): 06836425 (3) Acute blood loss anemia Current Visit: Yes Status: Acute Code(s): D62 - ACUTE POSTHEMORRHAGIC ANEMIA SNOMED Code(s): 673288267 (4) Aphthous ulcer of mouth Current Visit: Yes Status: Acute Code(s): K12.0 - RECURRENT ORAL APHTHAE SNOMED Code(s): 199613047 (5) Oral candidiasis Current Visit: Yes Status: Acute Code(s): B37.0 - CANDIDAL STOMATITIS SNOMED Code(s): 92793730 (6) Acute on chronic renal failure Current Visit: No Status: Acute Code(s): N17.9 - ACUTE KIDNEY FAILURE, UNSPECIFIED; N18.9 - CHRONIC KIDNEY DISEASE, UNSPECIFIED SNOMED Code(s): 459866873 (7) Colon, diverticulosis Current Visit: No Status: Acute Code(s): K57.30 - DVRTCLOS OF LG INT W/O PERFORATION OR ABSCESS W/O BLEEDING SNOMED Code(s): 022221810 (8) Dependence on peritoneal dialysis Current Visit: No Status: Acute Code(s): Z99.2 - DEPENDENCE ON RENAL DIALYSIS SNOMED Code(s): 858516206 Plan: 1. CBC monitoring. Protonix 40 mg IV daily. Cool solution/nystatin. Liquid soft diet as tolerated. Stool softener Senokot-S 2 tabs twice a day and avoid constipation. Will follow with you. 2. Inpatient endoscopic exams not planned at this time but contingent on clinical course EGD colonoscopy performed May 2018 with findings of sigmoid diverticulosis and hiatal hernia. Thank you for this kind referral and the opportunity to participate in the care of your patient. This consultation was discussed with Dr. Davis. The impression and plan of care have been directed as dictated.
[2019-01-04] MEDS ORDERED: BACLOFEN 10 MG TAB PO PRN (11:22)
--- NOTE | 2019-01-04 11:25 | P.PN ---
Subjective Progress Note Date: 01/04/19 This is a 73-year-old male one of Dr. Maddox with a previous medical history significant for CAD post-PCI and stent placement, atrial fibrillation, chronic systolic heart failure, and stage renal disease on peritoneal dialysis, hypertension and hypertensive cardio vascular disease, hyperlipidemia, enlarged prostate, severe protein calorie malnutrition, patient was just discharged from the hospital yesterday after a prolonged hospital stay almost a month when he was admitted to the hospital for acute hypoxemic respiratory failure due to combination of influenza pneumonia as well as acute on chronic systolic heart failure with fluid overload and he was just discharged yesterday to go to [facility] for physical therapy and rehabilitation and prior to that he was hospitalized at our institution back in October 2018 for open reduction and internal fixation and IM nailing of the right hip due to the hip fracture, patient spent less than 24 hours at [facility] when he developed to have a signifi cant bright red blood per rectum and he was immediately sent back to the ER at [facility] patient was admitted to the intensive care unit for evaluation by gastroenterology regulatory process manager consultation was obtained from Dr. Smallwood, patient prognosis remains guarded. 01/04: Patient is been afebrile, blood pressure 125/98, pulse ox 95% on room air, heart rate running in the 60s and 70s. White count 3.6, hemoglobin 8.7, platelet count 248. Sodium 136, potassium 3.4, chloride 108, CO2 21, BUN 50, creatinine 4.66. Patient is on CAPD managed by nephrology. With blood glucose ran between 94 and 185. Patient has been seen by GI with no plan for procedure at this point. Patient has had no bleeding. Hemoglobin is 8.7. Patient is also had no episodes of hypotension. Patient is complaining of back pain and baclofen will be added. He is currently on cool solution and salt and baking soda mouthwash will be added to that. Brother is at the bedside and has been updated about current plan. Discharge plan will be to return to [facility] to complete course of rehab for right hip surgery. Review of Systems Constitutional: Reports anorexia, Reports chronic pain, Reports fatigue, Reports lethargy, Reports malaise, Reports weakness, Reports weight loss Eyes, Ears, nose, mouth and throat: Reports dysphagia, Reports mouth pain, Reports sore throat Cardiovascular: Reports shortness of breath, Denies chest pain, Denies decreased exercise tolerance, Denies dyspnea on exertion, Denies orthopnea, Denies rapid heart beat, Denies syncope Respiratory: Reports home oxygen, Denies congestion, Denies cough with sputum, Denies sleep apnea, Denies snoring, Denies wheezing Gastrointestinal: Reports change in bowel habits, denies hematochezia, Reports nausea, Denies abdominal pain, Denies coffee ground emesis, Denies dyspepsia, Denies excessive gas, Denies heartburn, Denies hematemesis, Denies jaundice, Denies lactose intolerance, Denies melena, Denies vomiting Genitourinary: Denies dysuria Musculoskeletal: Reports atrophy, Reports gait dysfunction, Reports muscle weakness, Reports myalgias Musculoskeletal: Integumentary: Denies pruritus, Denies rash Neurological: Denies numbness, Denies weakness Psychiatric: Reports anxiety, Reports depression, Reports sadness/tearfulness, Reports sleep disturbances, Denies suicidal ideation Endocrine: Denies fatigue, Denies weight change Objective - Vital Signs Vital signs: Vital Signs Temp 98 F 01/04/19 00:00 Pulse 68 01/04/19 07:56 Resp 22 01/04/19 07:00 BP 131/72 01/04/19 07:00 Pulse Ox 94 L 01/04/19 07:00 Intake & Output 01/03/19 01/04/19 01/04/19 18:59 06:59 18:59 Intake Total 600 640 310 Output Total 0 0 0 Balance 600 640 310 Weight 58.967 kg 57.3 kg Intake: IV 600 640 260 Magnesium Sulfate-D5w Pmx 100 1 gm In Dextrose/Water 1 100ml.bag @ 100 mls/hr IVPB ONCE ONE Rx#: [id number] Potassium Chloride 10 meq 100 400 100 In Water For Injection 1 100ml.bag @ 100 mls/hr IVPB Q1HR LULA Rx#: [id number] Sodium Chloride 0.9% 500 0 240 60 ml 500 ml @ 20 mls/hr IV .Q24H LULA Rx#:[id number] Sodium Chloride 0.9% 500 500 ml 500 ml @ 999 mls/hr IV .Q31M ONE Rx#:[id number] Intake, IV Titration 50 Amount Desmopressin Acetate 17 50 mcg In Sodium Chloride 0. 9% 50 ml @ 200 mls/hr IVPB ONCE ONE Rx#: [id number] Output: Urine 0 0 0 - Exam General appearance: no distress, thin, brother at bedside - EENT Eyes: anicteric sclerae, EOMI, PERRLA, no ptosis, no scleral icterus ENT: hearing grossly normal, NA/AT, no normal oropharynx, other (Tongue ulcers with thrush.), pharyngeal erythema, thrush Ears: - Neck Neck: no lymphadenopathy, normal ROM, no rigidity, no stridor, no thyromegaly Carotids: - Respiratory Respiratory: - Cardiovascular Rhythm: irregularly irregular Heart sounds: - Gastrointestinal General gastrointestinal: normal bowel sounds, soft, no tenderness, no umbilical hernia, no ventral hernia (There is PD catheter in place.) - Integumentary Integumentary: decreased turgor - Neurologic Neurologic: focal deficits - Musculoskeletal Musculoskeletal: generalized weakness - Psychiatric Psychiatric: A&O x's 3, no appropriate affect, intact judgment & insight - Labs CBC & Chem 7: 01/04/19 05:24 01/04/19 05:24 Labs: Abnormal Lab Results - Last 24 Hours (Table) 01/03/19 01/03/19 01/03/19 Range/Units 13:10 13:10 13:10 WBC (3.8-10.6) k/uL RBC 3.93 L (4.30-5.90) m/uL Hgb 10.7 L (13.0-17.5) gm/dL Hct 34.3 L (39.0-53.0) % MCHC (31.0-37.0) g/dL RDW 17.8 H (11.5-15.5) % Lymphocytes # 0.7 L (1.0-4.8) k/uL Metamyelocytes # (Man) (0) k/uL Sodium 134 L (137-145) mmol/L Potassium (3.5-5.1) mmol/L Chloride 93 L (98-107) mmol/L Carbon Dioxide 32 H (22-30) mmol/L BUN 61 H (9-20) mg/dL Creatinine 6.17 H (0.66-1.25) mg/dL Glucose (74-99) mg/dL POC Glucose (mg/dL) (75-99) mg/dL Calcium 8.2 L (8.4-10.2) mg/dL AST 63 H (17-59) U/L Troponin I 0.091 H* (0.000-0.034) ng/mL Total Protein 5.5 L (6.3-8.2) g/dL Albumin 2.5 L (3.5-5.0) g/dL 01/03/19 01/03/19 01/03/19 Range/Units 16:12 16:50 18:45 WBC (3.8-10.6) k/uL RBC 3.19 L (4.30-5.90) m/uL Hgb 9.0 L D (13.0-17.5) gm/dL Hct 28.0 L (39.0-53.0) % MCHC (31.0-37.0) g/dL RDW 17.9 H (11.5-15.5) % Lymphocytes # 0.9 L (1.0-4.8) k/uL Metamyelocytes # (Man) (0) k/uL Sodium (137-145) mmol/L Potassium (3.5-5.1) mmol/L Chloride (98-107) mmol/L Carbon Dioxide (22-30) mmol/L BUN (9-20) mg/dL Creatinine (0.66-1.25) mg/dL Glucose (74-99) mg/dL POC Glucose (mg/dL) 66 L 203 H (75-99) mg/dL Calcium (8.4-10.2) mg/dL AST (17-59) U/L Troponin I (0.000-0.034) ng/mL Total Protein (6.3-8.2) g/dL Albumin (3.5-5.0) g/dL 01/04/19 01/04/19 01/04/19 Range/Units 01:10 03:58 05:24 WBC 3.6 L (3.8-10.6) k/uL RBC 3.43 L 3.12 L (4.30-5.90) m/uL Hgb 10.0 L 8.7 L (13.0-17.5) gm/dL Hct 30.4 L 29.0 L (39.0-53.0) % MCHC 29.9 L (31.0-37.0) g/dL RDW 18.0 H 18.1 H (11.5-15.5) % Lymphocytes # 0.6 L (1.0-4.8) k/uL Metamyelocytes # (Man) 0.07 H (0) k/uL Sodium (137-145) mmol/L Potassium (3.5-5.1) mmol/L Chloride (98-107) mmol/L Carbon Dioxide (22-30) mmol/L BUN (9-20) mg/dL Creatinine (0.66-1.25) mg/dL Glucose (74-99) mg/dL POC Glucose (mg/dL) 124 H (75-99) mg/dL Calcium (8.4-10.2) mg/dL AST (17-59) U/L Troponin I (0.000-0.034) ng/mL Total Protein (6.3-8.2) g/dL Albumin (3.5-5.0) g/dL 01/04/19 Range/Units 05:24 WBC (3.8-10.6) k/uL RBC (4.30-5.90) m/uL Hgb (13.0-17.5) gm/dL Hct (39.0-53.0) % MCHC (31.0-37.0) g/dL RDW (11.5-15.5) % Lymphocytes # (1.0-4.8) k/uL Metamyelocytes # (Man) (0) k/uL Sodium 136 L (137-145) mmol/L Potassium 3.4 L (3.5-5.1) mmol/L Chloride 108 H (98-107) mmol/L Carbon Dioxide 21 L (22-30) mmol/L BUN 50 H (9-20) mg/dL Creatinine 4.66 H (0.66-1.25) mg/dL Glucose 110 H (74-99) mg/dL POC Glucose (mg/dL) (75-99) mg/dL Calcium 6.5 L (8.4-10.2) mg/dL AST (17-59) U/L Troponin I (0.000-0.034) ng/mL Total Protein 4.3 L (6.3-8.2) g/dL Albumin 1.9 L (3.5-5.0) g/dL Assessment and Plan Plan: 1. Lower GI bleed of unclear etiology possible diverticular bleed. Type and cross and place on hold 2 units of packed red blood cells, transfuse for hemoglobin less than 7, keep the patient on nothing per mouth, GI consultation appreciated. No plan for procedure at this time. Protonix 40 mg IV push every 12 hours, ICU consult for Dr. Smallwood. 2. Recent influenza a pneumonia. Patient did receive and finish Tamiflu treatment. 3. Severe thrush with tongue ulcers. Patient is currently on nothing per mouth. Continue cool solution with nystatin, salt water baking soda mouth rinse. 4. Chronic systolic heart failure. Continue with current CAPD. Continue atenolol. 5. CAD post-PCI. Stable at this time. Continue atenolol 12.5 mg orally once every day. 6. Paroxysmal atrial fibrillation. Stable at this time. Continue atenolol 12.5 mg orally once every day. 7. Hypertension. Blood pressures pre-much controlled. 8. Hyperlipidemia. We will continue with Lopid 600 mg orally twice every day and Lipitor 40 mg orally once every day. 9. Adrenal insufficiency. Patient may need to be on hydrocortisone 50 mg IV push every 8 hours. 10. Severe protein calorie malnutrition. We will restart protein supplement when the patient is stable. 11. Recurrent depression. We will continue with Remeron 15 mg orally once every day. 12. Severe GERD. Continue with PPI. 13. Diabetes mellitus type 2. Currently on Levemir 6 units at bedtime along with a sliding scale insulin. 14. End-stage renal disease on CAPD. Consult nephrology. 15. Anemia of chronic kidney disease. Currently on Aranesp. 16. No code. Discharge plan: Return to [facility] Impression and plan of care have been directed as dictated by the signing physician. Margot Dorado nurse practitioner acting as scribe for signing physician.
--- NOTE | 2019-01-04 11:36 | P.CNPUL ---
History of Present Illness Consult date: 01/04/19 Requesting physician: Carly Null Reason for consult: other (Critical care management) Chief complaint: Rectal bleeding History of present illness: This is a pleasant 73-year-old gentleman who follows with Dr. Maddox as his primary care physician. He has a history of coronary artery disease with previous stent placement in 2011, atrial fibrillation, carotid stenosis with left endarterectomy, diabetes mellitus, end-stage renal failure receiving peritoneal dialysis, hyperlipidemia, hypertension, hypothyroidism, anxiety. The patient is a lifelong nonsmoker. The patient was just discharged from here on 01/02/2019 following an episode of acute hypoxic respiratory failure secondary to pneumonia, influenza A and acute on chronic systolic congestive heart failure. He also had some acute lower GI bleeding felt secondary to hemorrhoids. He was returned to the emergency room from [facility] on 01/03/2019 after being found with some bright red blood per rectum. Presenting hemoglobin 10.7. White count 4.7. Creatinine 6.17. Troponin 0.091. He was found to be hypotensive and received 2 L liters of fluid resuscitation. He did not require IV pressors. He was admitted to the ICU for the same. He is seen today in consultation. He is awake and alert in no acute distress. He is m aintaining good O2 saturations in the mid 90s on room air. Chest x-ray shows some bilateral consolidation with small effusion secondary to congestive heart failure. He's been afebrile. Hemodynamically stable. White count 3.6. Hemoglobin 8.7. Creatinine 4.66. He is receiving his CAPD. Currently has a 0.9 normal saline at 20 ML's per hour. GI consult pending. Review of Systems Constitutional: Reports fatigue, Reports poor appetite, Reports weakness Eyes: denies pain Ears: Ears, nose, mouth and throat: Reports dysphagia, Reports mouth pain, Reports sore throat Cardiovascular: Reports edema Respiratory: Reports dyspnea Gastrointestinal: Reports change in bowel habits Genitourinary: Reports as per HPI Musculoskeletal: Reports limitation of motion Integumentary: Denies pruritus, Denies rash Neurological: Reports confusion, Reports weakness Psychiatric: Reports depression Endocrine: Reports fatigue Hematologic/Lymphatic: Reports as per HPI Allergic/Immunologic: Reports as per HPI Past Medical History Past Medical History: Atrial Fibrillation, Coronary Artery Disease (CAD), Heart Failure, COPD, Diabetes Mellitus, Dialysis, Hyperlipidemia, Hypertension, Osteoarthritis (OA), Pneumonia, Prostate Disorder, Renal Disease, Thyroid Disorder Additional Past Medical History / Comment(s): Pt recently admitted to [facility] on 12/18/18 with acute hypoxic respiratory failure secondary possible to pneumonia, influenza A, acute on chronic CHF, impaired L ventricular function, Afib RVR, IDDM type II, ESRD with CAPD, lower GI bleed thougt likely hemorrhoid caused, o ral candidiasis/mouth ulcers-dysphagia and difficulty chewing, severe protein calorie malnutrition, adrenal insufficiency, chronic anemia, mineral bone disorder, hypotension, chronic pain, multiple compression fractures in back and recent R hip fracture with surgery, hypothyroid, severe encephalopathy-thought d/t medication-was sent to [facility]. History of Any Multi-Drug Resistant Organisms: None Reported Past Surgical History: Heart Catheterization With Stent Additional Past Surgical History / Comment(s): Peritoneal catheter, renal biopsy, L arm fistula, PCI with stent in 2011, L caratid endartetomy, bilateral cataract removals, IM nailing R hip. Past Anesthesia/Blood Transfusion Reactions: No Reported Reaction Date of Last Stent Placement:: 2011 Smoking Status: Never smoker - Past Family History Father Additional Family Medical History / Comment(s): Hx. father "brights disease" age 47 Mom CHF at 81 Brother(s) Family Medical History: Deep Vein Thrombosis (DVT) Mother Family Medical History: Congestive Heart Failure (CHF) Additional Family Medical History / Comment(s): Mother of CHF at the age of 81yrs. Medications and Allergies Home Medications Medication Instructions Recorded Confirmed Type Gemfibrozil [Lopid] 600 mg PO DAILY 03/06/17 01/03/19 History Polyethylene Glycol 3350 [Miralax] 17 gm PO DAILY 07/12/17 01/03/19 History Acetaminophen [Tylenol] 975 mg PO Q6H PRN 12/18/18 01/03/19 History Biotene Dry Mouth Liquid 15 ml PO DAILY 12/18/18 01/03/19 History Bisacodyl [Dulcolax] 10 mg RECTAL DAILY PRN 12/18/18 01/03/19 History Calcium Carb-Mag Carb-Folic 1 tab PO AC-TID 12/18/18 01/03/19 History [Magnebind 400] Gentamicin 0.1% Cream 1 applic TOPICAL DAILY 12/18/18 01/03/19 History Lanthanum Carbonate 1,000 mg PO AC-TID 12/18/18 01/03/19 History Lidocaine 5% Patch [Lidoderm 5% 1 patch TOPICAL DAILY 12/18/18 01/03/19 History Patch] Na Phos,M-B/Na Phos,Di-Ba [Fleet 133 ml RECTAL DAILY PRN 12/18/18 01/03/19 History Adult] Nepho Supplement 240 ml PO HS 12/18/18 01/03/19 History Ondansetron HCl [Zofran] 4 mg PO Q6H PRN 12/18/18 01/03/19 History Pantoprazole Sodium [Protonix] 40 mg PO DAILY@0600 12/18/18 01/03/19 History Velphoro Tablet 500 Mg 500 mg PO DAILY 12/18/18 01/03/19 History Vit B Complx C/Folic Acid/Zinc 1 tab PO DAILY@1700 12/18/18 01/03/19 History [Renaplex Tablet] Acetaminophen-Codeine 300-30mg 1 tab PO Q6H PRN #12 tab 01/02/19 01/03/19 Rx [Tylenol w/codeine #3] Amiodarone [Cordarone] 200 mg PO DAILY tab 01/02/19 01/03/19 Rx Atorvastatin [Lipitor] 40 mg PO DAILY tab 01/02/19 01/03/19 Rx Insulin Detemir (Levemir) [Levemir] 6 unit SQ HS syr 01/02/19 01/03/19 Rx Ipratropium-Albuterol Nebulize 3 ml INHALATION RT-Q2H PRN 01/02/19 01/03/19 Rx [Duoneb 0.5 mg-3 mg/3 ml Soln] ampul.neb Lidocaine Viscous 2% [Xylocaine 5 ml MUCOUS MEM ACHS ml 01/02/19 01/03/19 Rx Viscous] Midodrine [ProAmatine] 10 mg PO AC-TID PRN tab 01/02/19 01/03/19 Rx Mirtazapine [Remeron] 15 mg PO HS tab 01/02/19 01/03/19 Rx Atenolol [Tenormin] 12.5 mg PO DAILY 01/03/19 01/03/19 History Epoetin Kenan [Procrit] 10 unit SQ FR@1700 01/03/19 01/03/19 History INSULIN ASPART (NovoLOG) [NovoLOG See Protocol SQ ACHS 01/03/19 01/03/19 History (formulary)] Magnesium Hydroxide [Milk of 2,400 mg PO DAILY PRN 01/03/19 01/03/19 History Magnesia] Mouth Wash 5 ml PO Q6H PRN 01/03/19 01/03/19 History Sevelamer [Renvela] 2,400 mg PO BID@0800,1700 01/03/19 01/03/19 History Allergies Allergy/AdvReac Type Severity Reaction Status Date / Time hydromorphone [From Dilaudid] Allergy Hallucinati Verified 01/03/19 13:29 ons garlic AdvReac Diarrhea Verified 01/03/19 13:29 prednisone AdvReac Increased Verified 01/03/19 13:29 Blood Pressure sour cream AdvReac Diarrhea Uncoded 01/03/19 12:51 Physical Exam Vitals: Vital Signs Temp Pulse Resp BP Pulse Ox 01/04/19 10:00 69 14 125/98 95 01/04/19 09:00 67 13 155/84 94 L 01/04/19 08:00 97.0 F L 72 23 122/71 96 01/04/19 07:56 68 01/04/19 07:45 68 01/04/19 07:00 67 22 131/72 94 L 01/04/19 06:00 71 16 124/67 95 01/04/19 05:00 63 15 128/72 93 L 01/04/19 04:00 68 23 125/75 95 01/04/19 03:00 70 16 130/71 93 L 01/04/19 02:00 70 21 137/72 95 01/04/19 01:00 71 15 100/89 95 01/04/19 00:00 98 F 64 12 107/62 97 01/03/19 23:03 62 15 101/56 96 01/03/19 23:00 64 15 113/63 96 01/03/19 22:00 64 7 L 110/82 97 01/03/19 21:00 63 17 98/56 97 01/03/19 20:00 97.9 F 66 19 114/66 99 01/03/19 19:00 60 11 L 97/59 98 01/03/19 18:45 58 L 12 79/52 97 01/03/19 18:30 58 L 10 L 77/50 97 01/03/19 18:15 57 L 11 L 103/60 97 01/03/19 18:00 60 15 113/69 98 01/03/19 17:45 61 12 116/65 98 01/03/19 17:30 73 10 L 110/62 98 01/03/19 17:15 65 15 116/59 95 01/03/19 17:00 61 19 115/67 95 01/03/19 16:45 64 17 103/54 94 L 01/03/19 16:30 72 17 107/61 85 L 01/03/19 16:15 65 10 L 107/61 97 01/03/19 16:11 66 15 95 01/03/19 16:00 10 L 01/03/19 15:45 97 F L 70 10 L 93/57 95 01/03/19 15:38 98.1 F 65 16 93/57 96 01/03/19 15:30 67 91/53 95 01/03/19 15:20 68 91/53 97 01/03/19 15:00 68 95/56 97 01/03/19 14:30 67 99/55 01/03/19 14:20 70 91/55 95 01/03/19 14:16 98.0 F 70 18 91/55 96 01/03/19 14:10 70 90/56 94 L 01/03/19 14:08 74 90/56 01/03/19 14:01 73 95 01/03/19 13:00 88 104/68 97 01/03/19 12:48 100.0 F H 82 16 115/68 96 Intake and Output 01/03/19 01/04/19 01/04/19 22:59 06:59 14:59 Intake Total 780 460 330 Output Total 0 0 0 Balance 780 460 330 Intake: IV 780 460 280 Magnesium Sulfate-D5w Pmx 100 1 gm In Dextrose/Water 1 100ml.bag @ 100 mls/hr IVPB ONCE ONE Rx#: [id number] Potassium Chloride 10 meq 200 300 100 In Water For Injection 1 100ml.bag @ 100 mls/hr IVPB Q1HR LULA Rx#: [id number] Sodium Chloride 0.9% 500 80 160 80 ml 500 ml @ 20 mls/hr IV .Q24H LULA Rx#:[id number] Sodium Chloride 0.9% 500 500 ml 500 ml @ 999 mls/hr IV .Q31M ONE Rx#:[id number] Intake, IV Titration 50 Amount Desmopressin Acetate 17 50 mcg In Sodium Chloride 0. 9% 50 ml @ 200 mls/hr IVPB ONCE ONE Rx#: [id number] Output: Urine 0 0 0 Other: Weight 57.3 kg GENERAL EXAM: Flat affect. Alert, comfortable in no apparent distress. On room air. HEAD: Normocephalic. EYES: Normal reaction of pupils, equal size. NOSE: Clear with pink turbinates. THROAT: No erythema or exudates. NECK: No masses, no JVD. CHEST: No chest wall deformity. LUNGS: Equal air entry with crackles in the posterior bases. CVS: S1 and S2 normal with audible murmur, regular rhythm. ABDOMEN: CAPD catheter in place. No hepatosplenomegaly, normal bowel sounds, no guarding or rigidity. SPINE: No scoliosis or deformity SKIN: No rashes CENTRAL NERVOUS SYSTEM: No focal deficits, tone is normal in all 4 extremities. EXTREMITIES: There is no peripheral edema. No clubbing, no cyanosis. Peripheral pulses are intact. Results - Laboratory Findings CBC and BMP: 01/04/19 05:24 01/04/19 05:24 PT/INR, D-dimer PT 12.0 sec (9.0-12.0) 01/03/19 13:10 INR 1.1 (<1.2) 01/03/19 13:10 Abnormal lab findings: Abnormal Labs 01/03/19 01/03/19 01/03/19 13:10 13:10 13:10 WBC RBC 3.93 L Hgb 10.7 L Hct 34.3 L MCHC RDW 17.8 H Lymphocytes # 0.7 L Metamyelocytes # (Man) Sodium 134 L Potassium Chloride 93 L Carbon Dioxide 32 H BUN 61 H Creatinine 6.17 H Glucose POC Glucose (mg/dL) Calcium 8.2 L AST 63 H Troponin I 0.091 H* Total Protein 5.5 L Albumin 2.5 L 01/03/19 01/03/19 01/03/19 16:12 16:50 18:45 WBC RBC 3.19 L Hgb 9.0 L D Hct 28.0 L MCHC RDW 17.9 H Lymphocytes # 0.9 L Metamyelocytes # (Man) Sodium Potassium Chloride Carbon Dioxide BUN Creatinine Glucose POC Glucose (mg/dL) 66 L 203 H Calcium AST Troponin I Total Protein Albumin 01/04/19 01/04/19 01/04/19 01:10 03:58 05:24 WBC 3.6 L RBC 3.43 L 3.12 L Hgb 10.0 L 8.7 L Hct 30.4 L 29.0 L MCHC 29.9 L RDW 18.0 H 18.1 H Lymphocytes # 0.6 L Metamyelocytes # (Man) 0.07 H Sodium Potassium Chloride Carbon Dioxide BUN Creatinine Glucose POC Glucose (mg/dL) 124 H Calcium AST Troponin I Total Protein Albumin 01/04/19 01/04/19 05:24 10:11 WBC RBC Hgb Hct MCHC RDW Lymphocytes # Metamyelocytes # (Man) Sodium 136 L Potassium 3.4 L Chloride 108 H Carbon Dioxide 21 L BUN 50 H Creatinine 4.66 H Glucose 110 H POC Glucose (mg/dL) 185 H Calcium 6.5 L AST Troponin I Total Protein 4.3 L Albumin 1.9 L - Diagnostic Findings Chest x-ray: image reviewed Assessment and Plan Assessment: Impression: #1 Bleeding per rectum in a patient with a history of diverticular bleed secondary to constipation in the past, anemia current hemoglobin 8.7. #2 Hypotension, not requiring any pressors, received fluid resuscitation. Secondary to above. #3 End-stage renal disease receiving CAPD. #4 Acute on chronic systolic congestive heart failure with ejection fraction 25- 30%. #5 Recent admission for acute hypoxic respiratory failure secondary to above. #6 Coronary artery disease with previous stent placement. #7 Carotid artery disease with previous left carotid endarterectomy. #8 Diabetes mellitus. #9 Hypertension, history of. #10 Hyperlipidemia. #11 Hypothyroidism. #12 History of displaced right intertrochanteric femur fracture status post trochanteric intramedullary nailing in October 2018. #13 Poor overall functional performance based on the above-mentioned multiple comorbidities, currently in ECF. Plan: The patient was seen and evaluated by Dr. Smallwood. Chest x-ray and labs were reviewed. Patient is currently stable from the pulmonary and critical care standpoint. Currently not requiring pressors. Has not required blood transfusions. No further GI bleed this morning. GI and nephrology are on the case. We will continue to follow make further recommendations based on his clinical status. If the patient remains stable he may be transferred out of the ICU later today. His overall prognosis remains poor and guarded based on the above-mentioned multiple comorbidities. He is a DO NOT RESUSCITATE/DO NOT INTUBATE CODE STATUS. I, the cosigning physician, performed a history & physical examination of the pa enmanuel. Lungs sounds with faint crackles in the posterior bases. Maintaining good O2 saturations in the 90s on room air. I discussed the assessment and plan of care with my nurse practitioner, Marilin Ricks. I attest to the above consultation as dictated by her. Time with Patient: Greater than 30
[2019-01-04 12:17] LABS: Glucose,Whole Blood 162 mg/dL (75-99)
[2019-01-04] MEDS: SALT AND SODA MOUTHWASH 1,000 ML PO SCH ×3 (12:39→20:43)
[2019-01-04] MEDS: SENNOSIDES-DOCUSATE SODIUM 1 EACH TAB PO SCH ×2 (12:52→20:35)
[2019-01-04] MEDS ORDERED: ACETAMINOPHEN IV (For NPO) 1,000 MG in EMPTY BAG 1 BAG IVPB PRN (13:04)
--- NOTE | 2019-01-04 14:38 | XR ---
EXAMINATION TYPE: XR chest 1V portable DATE OF EXAM: 01/04/2019 COMPARISON: NONE HISTORY: Feeding tube TECHNIQUE: Single frontal view of the chest is obtained. FINDINGS: There is bilateral consolidation small effusion. Perihilar interstitial prominence noted. Biapical pleural thickening with pleural calcification. Atherosclerotic change aorta. Diffuse osteope stacey noted. IMPRESSION: Dobbhoff tube is seen with the tip in the left upper quadrant likely within the gastric fundus. Pleural-parenchymal changes are stable.
[2019-01-04] MEDS: FLUCONAZOLE IN NACL,ISO-OSM 200 MG in SALINE 1 100ML.BAG IVPB SCH (14:44)
[2019-01-04] MEDS ORDERED: DIALYSIS (PERIT 1.5%) 2,500 ML 30 G/2,000 ML BAG INTRAPERIT SCH (15:00)
[2019-01-04 16:31] LABS: Glucose,Whole Blood 124 mg/dL (75-99)
[2019-01-04] MEDS ORDERED: DARBEPOETIN ALFA 25 MCG/0.42 ML SYRINGE SQ SCH (17:00)
[2019-01-04] MEDS: NOREPINEPHRINE 4 MG in SODIUM CHLORIDE 0.9% 250 ML IV SCH (17:13)
[2019-01-04] MEDS: SODIUM CHLORIDE 0.9% 500 ML 500 ML IV SCH (18:11)
[2019-01-04 19:52] LABS: Glucose,Whole Blood 170 mg/dL (75-99)
[2019-01-04] MEDS: DIALYSIS (PERIT 1.5%) 2,500 ML 30 G/2,000 ML BAG INTRAPERIT SCH (20:26)
[2019-01-04] MEDS: MIRTAZAPINE 15 MG TAB PO SCH (20:59)
--- NOTE | 2019-01-04 23:21 | CONS ---
CONSULTATION REASON FOR CONSULT: End-stage renal disease. HISTORY OF PRESENT ILLNESS: The patient is a 73-year-old male with end-stage renal disease, on peritoneal dialysis, who was just discharged to [facility] yesterday after prolonged hospitalization for influenza A pneumonia and generalized debility. The patient was readmitted with history of maroon-colored blood per rectum. He denied any nausea. The patient has not been eating much since he has significant oral candidiasis and has significant dysphagia. He has tongue ulcers and has not been eating much. He has finished IV course of Diflucan. Hemoglobin was 10.0 g/dL. Previous hemoglobin right before discharge was about 10.7. PAST MEDICAL HISTORY: End-stage renal disease on peritoneal dialysis, recent influenza A pneumonia, chronic atrial fibrillation, coronary artery disease, COPD, hyperlipidemia, type 2 diabetes, osteoarthritis, BPH, hypothyroidism, CKD mineral bone disorder, recent oral candidiasis, multiple compression fractures and other hospitalization at [facility] for mental status changes related to medications which had been improved. PAST SURGICAL HISTORY: Cardiac catheterization, peritoneal dialysis catheter placement, coronary stent, carotid endarterectomy, cataract surgery, AV fistula. SOCIAL HISTORY: Negative for smoking, drug abuse or alcohol abuse. MEDICATIONS: Prior to admission included Lopid, MagneBind, Fosrenol, Nepro, Velphoro, Cordarone, Lipitor, insulin, midodrine, Remeron, atenolol, Procrit, ( ) mouthwash, insulin. ALLERGIES: Include PREDNISONE ADVERSE REACTION, CAUSES ELEVATED BLOOD PRESSURE. DILAUDID IS ALSO LISTED FOR HALLUCINATIONS. PHYSICAL EXAMINATION: Patient is currently comfortable, awake. He is not in any acute distress. Blood pressure this morning was 122/71, heart rate of 70 per minute. Patient is afebrile. Examination of the heart S1, S2. Examination lungs bilateral breath sounds are heard. Abdomen is soft, nontender. Examination of lower extremities shows no significant edema. The patient has significant oral ulcers. LAB: Show hemoglobin 8.7, sodium 136, potassium 3.4, calcium was 6.5, phosphorus 3.9. ASSESSMENT: 1. End-stage renal disease on peritoneal dialysis. Continue current PD exchanges. 2. Gastrointestinal bleed. We will give a dose of DDAVP. Gastroenterology has been consulted. The patient will be maintained on Aranesp as well. 3. Oral candidiasis and ulcers, currently quite symptomatic and patient is not able to eat. 4. Dyslipidemia. 5. Chronic atrial fibrillation. 6. Hypokalemia, will replace. PLAN: Continue current PD exchanges. Replace potassium IV as patient is not able to take p.o. Repeat labs in a.m. and DDAVP x1. Thank you for this consultation. We will continue to follow the patient with you during his hospitalization. OTTO / LEXIE: [id number] /
[2019-01-04 23:42] LABS: Glucose,Whole Blood 151 mg/dL (75-99)
[2019-01-05] MEDS: DIALYSIS (PERIT 1.5%) 2,500 ML 30 G/2,000 ML BAG INTRAPERIT SCH ×6 (00:19→20:17)
[2019-01-05] MEDS: HYDROCORTISONE SUCCINATE 100 MG/2 ML VIAL IV SCH ×3 (00:20→20:14)
[2019-01-05] MEDS: INSULIN ASPART (NovoLOG) 100 UNIT/ML VIAL SQ SCH ×6 (00:20→20:32)
[2019-01-05] MEDS: Acetaminophen-Codeine 300-30mg TAB PO PRN ×2 (03:31→20:12)
[2019-01-05 04:20] LABS: Glucose,Whole Blood 172 mg/dL (75-99)
[2019-01-05 06:05] LABS: Anisocytosis Slight; Basophils % (A) 0 %; Eosinophils % (A) 0 %; HCT 28.1 % (39.0-53.0); HGB 8.4 gm/dL (13.0-17.5); Hypochromasia Marked; Lymphocytes # (A) 0.5 k/uL (1.0-4.8); Lymphocytes % (A) 13 %; MCH 27.1 pg (25.0-35.0); MCHC 29.7 g/dL (31.0-37.0); Mean Platelet Volume 7.3; Monocytes # (A) 0.2 k/uL (0-1.0); Monocytes % (A) 6 %; Neutrophils # (A) 2.8 k/uL (1.3-7.7); Neutrophils % (A) 79 %; Platelet Count 365 k/uL (150-450); Poikilocytosis Slight; RBC 3.09 m/uL (4.30-5.90); RDW 17.9 % (11.5-15.5); WBC 3.5 k/uL (3.8-10.6)
[2019-01-05 06:46] LABS: Calcium 6.8 mg/dL (8.4-10.2); Magnesium 1.9 mg/dL (1.6-2.3); Potassium 3.9 mmol/L (3.5-5.1)
--- NOTE | 2019-01-05 07:28 | XR ---
EXAMINATION TYPE: XR chest 1V portable DATE OF EXAM: 01/05/2019 COMPARISON: 01/04/2019 HISTORY: Follow-up exam. Feeding tube placement. TECHNIQUE: Single frontal view of the chest is obtained. FINDINGS: Cardiomediastinal silhouette is again enlarged exaggerated by rotation. Minimal peripheral reticular opacities may relate to interstitial fluid overload or fibrosis. No new focal consolidatio n. Dobbhoff feeding tube is beyond the field of view, appropriately placed. Osseous structures are ge nerally demineralized. IMPRESSION: Stable exam from the prior of 01/04/2019. Peripheral reticular opacities may represent int erstitial fluid overload versus fibrosis.
--- NOTE | 2019-01-05 09:00 | P.PN ---
Subjective Patient is seen in follow-up for end-stage renal disease. He is maintained on peritoneal dialysis. He is currently receiving tube feedings due to risk for aspiration. He continues to have maroon-colored bowel movements. Hemoglobin is 8.4 this morning. No issues with PD. Vital signs are stable. General: The patient appeared well nourished and normally developed. HEENT: Head exam is unremarkable. Neck is without jugular venous distension. LUNGS: Breath sounds decreased. HEART: Rate and Rhythm are regular. First and second heart sounds normal. No murmurs, rubs or gallops. ABDOMEN: Abdominal exam reveals normal bowel sounds. Non-tender and non- distended. No evidence of peritonitis. EXTREMITITES: No clubbing, cyanosis, or edema. Objective - Vital Signs Vital signs: Vital Signs Temp 97.2 F L 01/05/19 04:00 Pulse 89 01/05/19 07:00 Resp 26 H 01/05/19 07:00 BP 148/76 01/05/19 07:00 Pulse Ox 94 L 01/05/19 07:00 Intake & Output 01/04/19 01/05/19 01/05/19 18:59 06:59 18:59 Intake Total 580 580 40 Output Total 0 0 0 Balance 580 580 40 Weight 57.3 kg 59.3 kg Intake: IV 460 320 20 ACETAMINOPHEN IV (For NPO 100 ) 1,000 mg In Empty Bag 1 bag @ 400 mls/hr IVPB Q6HR PRN Rx#:[id number] Magnesium Sulfate-D5w Pmx 100 1 gm In Dextrose/Water 1 100ml.bag @ 100 mls/hr IVPB ONCE ONE Rx#: [id number] Potassium Chloride 10 meq 100 In Water For Injection 1 100ml.bag @ 100 mls/hr IVPB Q1HR LULA Rx#: [id number] Sodium Chloride 0.9% 500 260 220 20 ml 500 ml @ 20 mls/hr IV .Q24H LULA Rx#:[id number] Intake, IV Titration 50 Amount Desmopressin Acetate 17 50 mcg In Sodium Chloride 0. 9% 50 ml @ 200 mls/hr IVPB ONCE ONE Rx#: [id number] Tube Feeding 40 170 20 Other 30 90 Output: Urine 0 0 0 Other: # Voids 1 # Bowel Movements 1 - Labs CBC & Chem 7: 01/05/19 05:35 01/05/19 05:35 Labs: Abnormal Lab Results - Last 24 Hours (Table) 01/04/19 01/04/19 01/04/19 Range/Units 10:11 11:56 16:30 WBC (3.8-10.6) k/uL RBC (4.30-5.90) m/uL Hgb (13.0-17.5) gm/dL Hct (39.0-53.0) % MCHC (31.0-37.0) g/dL RDW (11.5-15.5) % Lymphocytes # (1.0-4.8) k/uL Sodium (137-145) mmol/L BUN (9-20) mg/dL Creatinine (0.66-1.25) mg/dL Glucose (74-99) mg/dL POC Glucose (mg/dL) 185 H 162 H 124 H (75-99) mg/dL Calcium (8.4-10.2) mg/dL 01/04/19 01/04/19 01/05/19 Range/Units 19:51 23:40 04:18 WBC (3.8-10.6) k/uL RBC (4.30-5.90) m/uL Hgb (13.0-17.5) gm/dL Hct (39.0-53.0) % MCHC (31.0-37.0) g/dL RDW (11.5-15.5) % Lymphocytes # (1.0-4.8) k/uL Sodium (137-145) mmol/L BUN (9-20) mg/dL Creatinine (0.66-1.25) mg/dL Glucose (74-99) mg/dL POC Glucose (mg/dL) 170 H 151 H 172 H (75-99) mg/dL Calcium (8.4-10.2) mg/dL 01/05/19 01/05/19 Range/Units 05:35 05:35 WBC 3.5 L (3.8-10.6) k/uL RBC 3.09 L (4.30-5.90) m/uL Hgb 8.4 L (13.0-17.5) gm/dL Hct 28.1 L (39.0-53.0) % MCHC 29.7 L (31.0-37.0) g/dL RDW 17.9 H (11.5-15.5) % Lymphocytes # 0.5 L (1.0-4.8) k/uL Sodium 135 L (137-145) mmol/L BUN 49 H (9-20) mg/dL Creatinine 4.57 H (0.66-1.25) mg/dL Glucose 140 H (74-99) mg/dL POC Glucose (mg/dL) (75-99) mg/dL Calcium 6.8 L (8.4-10.2) mg/dL Microbiology - Last 24 Hours (Table) 01/03/19 13:10 Blood Culture - Preliminary Blood No Growth after 24 hours Assessment and Plan Plan: Assessment: 1. End-stage renal disease maintained on peritoneal dialysis. 2. GI bleed. Patient did receive a dose of DDAVP on January 04. GI following. Also on Aranesp. 3. Oral thrush. Patient currently maintained on tube feeding. 4. Hypokalemia from poor oral intake and PD losses. Status post placement. Better. 5. Chronic hypotension with concern for adrenal insufficiency. Blood pressures improved with IV steroids. He is also on midodrine. 6. Chronic kidney disease mineral bone disease. Plan: Maintain current PD exchanges. Decrease Solu-Cortef to 50 mg twice daily.
[2019-01-05 09:22] LABS: Glucose,Whole Blood 186 mg/dL (75-99)
[2019-01-05 09:30] LABS: Glucose,Whole Blood 193 mg/dL (75-99)
[2019-01-05] MEDS: MIDODRINE 5 MG TAB PO SCH ×3 (10:52→17:26)
[2019-01-05] MEDS: AMIODARONE 200 MG TAB PO SCH (10:54)
[2019-01-05] MEDS: ATENOLOL 25 MG TAB PO SCH (10:55)
[2019-01-05] MEDS: ATORVASTATIN 40 MG TAB PO SCH (10:56)
[2019-01-05] MEDS: FENOFIBRATE 160 MG TAB PO SCH (10:56)
[2019-01-05] MEDS: PANTOPRAZOLE 40 MG/10 ML VIAL IV SCH (10:57)
[2019-01-05] MEDS: SENNOSIDES-DOCUSATE SODIUM 1 EACH TAB PO SCH ×2 (10:57→20:12)
[2019-01-05] MEDS: MAG HYDROX/AL HYDROX/SIMETH 30 ML, LIDOCAINE VISCOUS 30 ML, diphenhydrAMINE ELIXIR 75 M... PO SCH ×12 (10:58→23:07)
--- NOTE | 2019-01-05 11:24 | P.PN ---
Subjective Progress Note Date: 01/05/19 Principal diagnosis: acute lower GI bleeding most likely secondary to diverticular disease, and hypotension This is a pleasant 73-year-old gentleman who follows with Dr. Maddox as his primary care physician. He has a history of coronary artery disease with previous stent placement in 2011, atrial fibrillation, carotid stenosis with left endarterectomy, diabetes mellitus, end-stage renal failure receiving peritoneal dialysis, hyperlipidemia, hypertension, hypothyroidism, anxiety. The patient is a lifelong nonsmoker. The patient was just discharged from here on 01/02/2019 following an episode of acute hypoxic respiratory failure secondary to pneumonia, influenza A and acute on chronic systolic congestive heart failure. He also had some acute lower GI bleeding felt secondary to hemorrhoids. He was returned to the emergency room from [facility] on 01/03/2019 after being found with some bright red blood per rectum. Presenting hemoglobin 10.7. White count 4.7. Creatinine 6.17. Troponin 0.091. He was found to be hypotensive and received 2 L liters of fluid resuscitation. He did not require IV pressors. He was admitted to the ICU for the same. He is seen today in consultation. He is awake and alert in no acute distress. He is maintaining good O2 saturations in the mid 90s on room air. Chest x-ray shows some bilateral consolidation with small effusion secondary to congestive heart failure. He's been afebrile. Hemodynamically stable. White count 3.6. Hemoglobin 8.7. Creatinine 4.66. He is receiving his CAPD. Currently has a 0.9 normal saline at 20 ML's per hour. GI consult pending. Patient was reevaluated today on 01/05/2019, remains in the ICU, continues to have some bloody stools, hemodynamically stable, not requiring any blood transfusion so far since admission. Continues to have issues with his oropharyngeal thrush which is quite severe, and yesterday were able to place a Dobbhoff tube for nutritional support. Continues on peritoneal dialysis, and no major events over the last 24 hours. Patient looks frail, and chronically ill.labs were reviewed relatively normal electrolytes however his BUN is 49 creatinine 4.57. Hemog lobin is 8.4 today. WBC count is 3.5. His hemoglobin on admission was 10.7.patient denies shortness of breath, no chest pain, no nausea no vomiting, had multiple maroon colored stools over the last 24 hours. Objective - Vital Signs Vital signs: Vital Signs Temp 97.5 F L 01/05/19 08:00 Pulse 73 01/05/19 09:00 Resp 18 01/05/19 09:00 BP 141/77 01/05/19 09:00 Pulse Ox 94 L 01/05/19 09:00 Intake & Output 01/04/19 01/05/19 01/05/19 18:59 06:59 18:59 Intake Total 580 580 130 Output Total 0 0 0 Balance 580 580 130 Weight 57.3 kg 59.3 kg Intake: IV 460 320 60 ACETAMINOPHEN IV (For NPO 100 ) 1,000 mg In Empty Bag 1 bag @ 400 mls/hr IVPB Q6HR PRN Rx#:[id number] Magnesium Sulfate-D5w Pmx 100 1 gm In Dextrose/Water 1 100ml.bag @ 100 mls/hr IVPB ONCE ONE Rx#: [id number] Potassium Chloride 10 meq 100 In Water For Injection 1 100ml.bag @ 100 mls/hr IVPB Q1HR [facility] Rx#: [id number] Sodium Chloride 0.9% 500 260 220 60 ml 500 ml @ 20 mls/hr IV .Q24H [facility] Rx#:[id number] Intake, IV Titration 50 Amount Desmopressin Acetate 17 50 mcg In Sodium Chloride 0. 9% 50 ml @ 200 mls/hr IVPB ONCE ONE Rx#: [id number] Tube Feeding 40 170 70 Other 30 90 Output: Urine 0 0 0 Other: # Voids 1 # Bowel Movements 1 - Exam GENERAL EXAM: Flat affect. Alert, comfortable in no apparent distress. On room air. HEAD: Normocephalic. EYES: Normal reaction of pupils, equal size. NOSE: Clear with pink turbinates. THROAT: significant thrush noted involving the whole mouth tongue, oropharynx, and inner cheeks NECK: No masses, no JVD. CHEST: No chest wall deformity. LUNGS: Equal air entry with crackles in the posterior bases. CVS: S1 and S2 normal with audible murmur, regular rhythm. ABDOMEN: CAPD catheter in place. No hepatosplenomegaly, normal bowel sounds, no guarding or rigidity. SPINE: No scoliosis or deformity SKIN: No rashes CENTRAL NERVOUS SYSTEM: No focal deficits, tone is normal in all 4 extremities. EXTREMITIES: There is no peripheral edema. No clubbing, no cyanosis. Peripheral pulses are intact. - Labs CBC & Chem 7: 01/05/19 05:35 01/05/19 05:35 Labs: Abnormal Lab Results - Last 24 Hours (Table) 01/04/19 01/04/19 01/04/19 Range/Units 11:56 16:30 19:51 WBC (3.8-10.6) k/uL RBC (4.30-5.90) m/uL Hgb (13.0-17.5) gm/dL Hct (39.0-53.0) % MCHC (31.0-37.0) g/dL RDW (11.5-15.5) % Lymphocytes # (1.0-4.8) k/uL Sodium (137-145) mmol/L BUN (9-20) mg/dL Creatinine (0.66-1.25) mg/dL Glucose (74-99) mg/dL POC Glucose (mg/dL) 162 H 124 H 170 H (75-99) mg/dL Calcium (8.4-10.2) mg/dL 01/04/19 01/05/19 01/05/19 Range/Units 23:40 04:18 05:35 WBC 3.5 L (3.8-10.6) k/uL RBC 3.09 L (4.30-5.90) m/uL Hgb 8.4 L (13.0-17.5) gm/dL Hct 28.1 L (39.0-53.0) % MCHC 29.7 L (31.0-37.0) g/dL RDW 17.9 H (11.5-15.5) % Lymphocytes # 0.5 L (1.0-4.8) k/uL Sodium (137-145) mmol/L BUN (9-20) mg/dL Creatinine (0.66-1.25) mg/dL Glucose (74-99) mg/dL POC Glucose (mg/dL) 151 H 172 H (75-99) mg/dL Calcium (8.4-10.2) mg/dL 01/05/19 01/05/19 01/05/19 Range/Units 05:35 09:19 09:28 WBC (3.8-10.6) k/uL RBC (4.30-5.90) m/uL Hgb (13.0-17.5) gm/dL Hct (39.0-53.0) % MCHC (31.0-37.0) g/dL RDW (11.5-15.5) % Lymphocytes # (1.0-4.8) k/uL Sodium 135 L (137-145) mmol/L BUN 49 H (9-20) mg/dL Creatinine 4.57 H (0.66-1.25) mg/dL Glucose 140 H (74-99) mg/dL POC Glucose (mg/dL) 186 H 193 H (75-99) mg/dL Calcium 6.8 L (8.4-10.2) mg/dL Microbiology - Last 24 Hours (Table) 01/03/19 13:10 Blood Culture - Preliminary Blood No Growth after 24 hours Assessment and Plan Assessment: Plan: 1. Lower GI bleed , most likely diverticular in nature unless for otherwise. 2. Recent influenza infection, resolved and treated. 3. Severe thrush with tongue ulcers. Continue feeding via Dobbhoff, and thrush is addressed accordingly. 4. chronic end-stage renal disease, on CAPD. 5. CAD post-PCI. Inactive at present 6. Paroxysmal atrial fibrillation. continue beta blockers/atenolol. 7. Hypertension. Fairly well controlled at present. 8. Hyperlipidemia. on Lopid and Lipitor. 9. Adrenal insufficiency. Continue hydrocortisone 10. Severe protein calorie malnutrition. being fed via Dobbhoff which should help. 12. GERD, on PPI by mouth 13. Diabetes mellitus type 2. on insulin. 14. End-stage renal disease on CAPD. Being followed by nephrology, CAPD is being continued to 15. Anemia of chronic kidney disease. continue Aranesp Recommendation: We'll continue to monitor the ICU, patient is quite ill and frail, all issues above are being addressed accordingly, at this point we will try to concentrate on his nutritional support, however overall picture remains poor and guarded. Prognosis is definitely poor. We will follow and again continue to address issues above as listed accordingly. Not ready for transfer out of the ICU at this point. Time with Patient: Less than 30
[2019-01-05] MEDS: LIDOCAINE 5% PATCH TOPICAL SCH (11:29)
[2019-01-05] MEDS: SALT AND SODA MOUTHWASH 1,000 ML PO SCH ×4 (11:39→20:15)
[2019-01-05 12:17] LABS: Glucose,Whole Blood 169 mg/dL (75-99)
--- NOTE | 2019-01-05 13:24 | P.PN ---
Subjective Progress Note Date: 01/05/19 This is a 73-year-old male one of Dr. Maddox with a previous medical history significant for CAD post-PCI and stent placement, atrial fibrillation, chronic systolic heart failure, and stage renal disease on peritoneal dialysis, hypertension and hypertensive cardio vascular disease, hyperlipidemia, enlarged prostate, severe protein calorie malnutrition, patient was just discharged from the hospital yesterday after a prolonged hospital stay almost a month when he was admitted to the hospital for acute hypoxemic respiratory failure due to combination of influenza pneumonia as well as acute on chronic systolic heart failure with fluid overload and he was just discharged yesterday to go to [facility] for physical therapy and rehabilitation and prior to that he was hospitalized at our institution back in October 2018 for open reduction and internal fixation and IM nailing of the right hip due to the hip fracture, patient spent less than 24 hours at [facility] when he developed to have a signifi cant bright red blood per rectum and he was immediately sent back to the ER at [facility] patient was admitted to the intensive care unit for evaluation by gastroenterology public health epidemiologist consultation was obtained from Dr. Smallwood, patient prognosis remains guarded. 01/04: Patient is been afebrile, blood pressure 125/98, pulse ox 95% on room air, heart rate running in the 60s and 70s. White count 3.6, hemoglobin 8.7, platelet count 248. Sodium 136, potassium 3.4, chloride 108, CO2 21, BUN 50, creatinine 4.66. Patient is on CAPD managed by nephrology. With blood glucose ran between 94 and 185. Patient has been seen by GI with no plan for procedure at this point. Patient has had no bleeding. Hemoglobin is 8.7. Patient is also had no episodes of hypotension. Patient is complaining of back pain and baclofen will be added. He is currently on cool solution and salt and baking soda mouthwash will be added to that. Brother is at the bedside and has been updated about current plan. Discharge plan will be to return to [facility] to complete course of rehab for right hip surgery. 01/05: Yesterday afternoon, we made patient nothing by mouth due to difficulty swallowing and coughing trying to take his cool solution. Speech therapy was added. Diflucan was added IV. Dobbhoff and tube feedings started severe protein calorie malnutrition. Patient did receive 1 dose of desmopressin yesterday afternoon. White count is currently 3.5, hemoglobin 8.4, platelet count 3 and 65. Sodium 135, potassium 3.9, chloride 104. CO2 22, BUN 49 and creatinine 4.57. Blood sugars running between 140 and 193. Blood culture shows no growth after 24 hours. Repeat chest x-ray shows peripheral reticular opacities may represent interstitial fluid overload versus fibrosis. Patient is followed by Dr. Chun and continued on CAPD. Solu-Cortef decreased to 50 mg twice daily. Patient had 1 bloody stool last night and a smear only this morning. He is having significant sputum production for which a sputum culture will be requested. Review of Systems Constitutional: Reports anorexia, Reports chronic pain, Reports fatigue, Reports lethargy, Reports malaise, Reports weakness, Reports weight loss Eyes, Ears, nose, mouth and throat: Reports dysphagia, Reports mouth pain, Reports sore throat Cardiovascular: Reports shortness of breath, Denies chest pain, Denies decreased exercise tolerance, Denies dyspnea on exertion, Denies orthopnea, Denies rapid heart beat, Denies syncope Respiratory: Reports home oxygen, Denies congestion, Denies cough with sputum, Denies sleep apnea, Denies snoring, Denies wheezing Gastrointestinal: Reports change in bowel habits, denies hematochezia, Reports nausea, Denies abdominal pain, Denies coffee ground emesis, Denies dyspepsia, Denies excessive gas, Denies heartburn, Denies hematemesis, Denies jaundice, D enies lactose intolerance, Denies melena, Denies vomiting Genitourinary: Denies dysuria Musculoskeletal: Reports atrophy, Reports gait dysfunction, Reports muscle weakness, Reports myalgias Integumentary: Denies pruritus, Denies rash Neurological: Denies numbness, Denies weakness Psychiatric: Reports anxiety, Reports depression, Reports sadness/tearfulness, Reports sleep disturbances, Denies suicidal ideation Endocrine: Denies fatigue, Denies weight change Objective - Vital Signs Vital signs: Vital Signs Temp 97.5 F L 01/05/19 08:00 Pulse 73 01/05/19 09:00 Resp 18 01/05/19 09:00 BP 141/77 01/05/19 09:00 Pulse Ox 94 L 01/05/19 09:00 Intake & Output 01/04/19 01/05/19 01/05/19 18:59 06:59 18:59 Intake Total 580 580 130 Output Total 0 0 0 Balance 580 580 130 Weight 57.3 kg 59.3 kg Intake: IV 460 320 60 ACETAMINOPHEN IV (For NPO 100 ) 1,000 mg In Empty Bag 1 bag @ 400 mls/hr IVPB Q6HR PRN Rx#:[id number] Magnesium Sulfate-D5w Pmx 100 1 gm In Dextrose/Water 1 100ml.bag @ 100 mls/hr IVPB ONCE ONE Rx#: [id number] Potassium Chloride 10 meq 100 In Water For Injection 1 100ml.bag @ 100 mls/hr IVPB Q1HR [facility] Rx#: [id number] Sodium Chloride 0.9% 500 260 220 60 ml 500 ml @ 20 mls/hr IV .Q24H [facility] Rx#:[id number] Intake, IV Titration 50 Amount Desmopressin Acetate 17 50 mcg In Sodium Chloride 0. 9% 50 ml @ 200 mls/hr IVPB ONCE ONE Rx#: [id number] Tube Feeding 40 170 70 Other 30 90 Output: Urine 0 0 0 Other: # Voids 1 # Bowel Movements 1 - Exam General appearance: no distress, thin, brother at bedside - EENT Eyes: anicteric sclerae, EOMI, PERRLA, no ptosis, no scleral icterus ENT: hearing grossly normal, NA/AT, no normal oropharynx, other (Tongue ulcers with thrush.), pharyngeal erythema, thrush, Dobbhoff in place Ears: - Neck Neck: no lymphadenopathy, normal ROM, no rigidity, no stridor, no thyromegaly Carotids: - Respiratory Respiratory: - Cardiovascular Rhythm: irregularly irregular Heart sounds: - Gastrointestinal General gastrointestinal: normal bowel sounds, soft, no tenderness, no umbilical hernia, no ventral hernia (There is PD catheter in place.) - Integumentary Integumentary: decreased turgor - Neurologic Neurologic: focal deficits - Musculoskeletal Musculoskeletal: generalized weakness - Psychiatric Psychiatric: A&O x's 3, no appropriate affect, intact judgment & insight - Labs CBC & Chem 7: 01/05/19 05:35 01/05/19 05:35 Labs: Abnormal Lab Results - Last 24 Hours (Table) 01/04/19 01/04/19 01/04/19 Range/Units 10:11 11:56 16:30 WBC (3.8-10.6) k/uL RBC (4.30-5.90) m/uL Hgb (13.0-17.5) gm/dL Hct (39.0-53.0) % MCHC (31.0-37.0) g/dL RDW (11.5-15.5) % Lymphocytes # (1.0-4.8) k/uL Sodium (137-145) mmol/L BUN (9-20) mg/dL Creatinine (0.66-1.25) mg/dL Glucose (74-99) mg/dL POC Glucose (mg/dL) 185 H 162 H 124 H (75-99) mg/dL Calcium (8.4-10.2) mg/dL 01/04/19 01/04/19 01/05/19 Range/Units 19:51 23:40 04:18 WBC (3.8-10.6) k/uL RBC (4.30-5.90) m/uL Hgb (13.0-17.5) gm/dL Hct (39.0-53.0) % MCHC (31.0-37.0) g/dL RDW (11.5-15.5) % Lymphocytes # (1.0-4.8) k/uL Sodium (137-145) mmol/L BUN (9-20) mg/dL Creatinine (0.66-1.25) mg/dL Glucose (74-99) mg/dL POC Glucose (mg/dL) 170 H 151 H 172 H (75-99) mg/dL Calcium (8.4-10.2) mg/dL 01/05/19 01/05/19 01/05/19 Range/Units 05:35 05:35 09:19 WBC 3.5 L (3.8-10.6) k/uL RBC 3.09 L (4.30-5.90) m/uL Hgb 8.4 L (13.0-17.5) gm/dL Hct 28.1 L (39.0-53.0) % MCHC 29.7 L (31.0-37.0) g/dL RDW 17.9 H (11.5-15.5) % Lymphocytes # 0.5 L (1.0-4.8) k/uL Sodium 135 L (137-145) mmol/L BUN 49 H (9-20) mg/dL Creatinine 4.57 H (0.66-1.25) mg/dL Glucose 140 H (74-99) mg/dL POC Glucose (mg/dL) 186 H (75-99) mg/dL Calcium 6.8 L (8.4-10.2) mg/dL 01/05/19 Range/Units 09:28 WBC (3.8-10.6) k/uL RBC (4.30-5.90) m/uL Hgb (13.0-17.5) gm/dL Hct (39.0-53.0) % MCHC (31.0-37.0) g/dL RDW (11.5-15.5) % Lymphocytes # (1.0-4.8) k/uL Sodium (137-145) mmol/L BUN (9-20) mg/dL Creatinine (0.66-1.25) mg/dL Glucose (74-99) mg/dL POC Glucose (mg/dL) 193 H (75-99) mg/dL Calcium (8.4-10.2) mg/dL Microbiology - Last 24 Hours (Table) 01/03/19 13:10 Blood Culture - Preliminary Blood No Growth after 24 hours Assessment and Plan Plan: 1. Lower GI bleed of unclear etiology possible diverticular bleed. Type and cross and place on hold 2 units of packed red blood cells, transfuse for hemoglobin less than 7, keep the patient on nothing per mouth, GI consultation appreciated. No plan for procedure at this time. Protonix 40 mg IV push every 12 hours, ICU consult for Dr. Smallwood. 2. Recent influenza a pneumonia. Patient did receive and finish Tamiflu treatment. 3. Severe thrush with tongue ulcers. Patient is currently on nothing per mouth. Continue cool solution with nystatin, salt water baking soda mouth rinse. 4. Chronic systolic heart failure. Continue with current CAPD. Continue atenolol. 5. CAD post-PCI. Stable at this time. Continue atenolol 12.5 mg orally once every day. 6. Paroxysmal atrial fibrillation. Stable at this time. Continue atenolol 12.5 mg orally once every day. 7. Hypertension. Blood pressures pre-much controlled. 8. Hyperlipidemia. We will continue with Lopid 600 mg orally twice every day and Lipitor 40 mg orally once every day. 9. Adrenal insufficiency. Patient may need to be on hydrocortisone 50 mg IV push decreased to every 12 hours. 10. Severe protein calorie malnutrition. We will restart protein supplement when the patient is stable. 11. Recurrent depression. We will continue with Remeron 15 mg orally once every day. 12. Severe GERD. Continue with PPI. 13. Diabetes mellitus type 2. Currently on Levemir 6 units at bedtime along with a sliding scale insulin. 14. End-stage renal disease on CAPD. Consult nephrology. 15. Anemia of chronic kidney disease. Currently on Aranesp. 16. Severe protein calorie malnutrition requiring Dobbhoff and tube feedings. 17. Possible aspiration. Patient is been made nothing by mouth, speech therapy evaluation. Dobbhoff and tube feedings for nutrition. Sputum culture requested. CODE STATUS: No code. Discharge plan: Return to [facility] Impression and plan of care have been directed as dictated by the signing physician. Margot Dorado nurse practitioner acting as scribe for signing physician.
[2019-01-05] MEDS: FLUCONAZOLE IN NACL,ISO-OSM 200 MG in SALINE 1 100ML.BAG IVPB SCH (14:08)
[2019-01-05 16:01] LABS: Glucose,Whole Blood 137 mg/dL (75-99)
[2019-01-05 16:22] LABS: Glucose,Whole Blood 138 mg/dL (75-99)
[2019-01-05] MEDS: NOREPINEPHRINE 4 MG in SODIUM CHLORIDE 0.9% 250 ML IV SCH (16:31)
[2019-01-05] MEDS: CLOTRIMAZOLE TROCHE 10 MG TROCHE MUCOUS MEM SCH ×3 (17:26→20:15)
[2019-01-05] MEDS: SODIUM CHLORIDE 0.9% 500 ML 500 ML IV SCH (17:58)
[2019-01-05] MEDS: MIRTAZAPINE 15 MG TAB PO SCH (20:14)
[2019-01-05 20:30] LABS: Glucose,Whole Blood 151 mg/dL (75-99)
[2019-01-05 23:50] LABS: Glucose,Whole Blood 109 mg/dL (75-99)
--- NOTE | 2019-01-06 00:26 | CONS ---
CONSULTATION DATE OF SERVICE: January 05, 2019. REASON FOR CONSULTATION: Extensive oropharyngeal candidiasis. HISTORY OF PRESENT ILLNESS: The patient is a 73 -year-old male who was recently admitted and treated at this facility for acute respiratory failure secondary to influenza A and congestive heart failure. The patient was stabilized and discharged back to the [facility] on the 01/02/2019. However, the next day, the patient was noticed to have bright red blood per rectum. Subsequently, the patient was sent back to the [facility] ER. On arrival, the patient was noticed to be hypertensive. Did have a fever of 100. Did receive fluid boluses and subsequently has been admitted to the ICU. Patient did have history of end-stage renal disease for which the patient is currently undergoing peritoneal dialysis. The patient noticed to have extensive oral thrush for which the patient was started on Diflucan. Infectious Disease was consulted for further recommendation management of his underlying oral thrush. The patient at the time of my evaluation was slightly lethargic and unable to provide any history. RN mentioned the patient is currently not on any pressor support. No further fevers has been noticed and his hemoglobin has been slightly 8.4 compared to 10.7 on admission. Blood culture on admission has been negative so far. REVIEW OF SYSTEMS: Could not be reliably obtained. The positive points have been mentioned in HPI. MEDICAL HISTORY: Atrial fibrillation, coronary artery disease, congestive heart failure, COPD, diabetes mellitus, hyperlipidemia, hypertension, osteoarthritis, pneumonia, end-stage renal disease on peritoneal dialysis. PAST SURGICAL HISTORY: PTCA with stent. Peritoneal dialysis catheter placement, renal biopsy, left arm AV fistula, PTCA with stent in 2011, left carotid endarterectomy, bilateral cataract surgery, IM nailing of the right hip. SOCIAL HISTORY: No history of smoking, drinking, or drug use. FAMILY HISTORY: Brother with history of DVT. Mother with history of congestive heart failure. ALLERGIES: TO HYDROMORPHONE, PREDNISONE. MEDICATION: Medications include the patient is currently on Tylenol, , Tenormin, Lipitor, baclofen, Lofibra, fluconazole 200 daily, Solu-Cortef, NovoLog, lidocaine, Midodrine, Remeron, Protonix, scopolamine patch. PHYSICAL EXAMINATION: Blood pressure 141/71 with pulse of 73, temperature 98. He is 92% on 2 L nasal cannula. General description is an elderly male lying in bed in no distress. No tachypnea. No accessory muscles of respiration use. HEENT: Shows pallor. No scleral icterus. Oral mucous membranes did show evidence of thrush. Neck trachea central. No thyromegaly.. Lungs unlabored breathing, decreased breath sounds at the bases. No wheeze. Heart S1, S2. Regular rate and rhythm. ABDOMEN: Soft, no tenderness. No guarding or rigidity. Extremities: No edema of the feet. SKIN: No rash or mass palpable. Neurological: Patient slightly lethargic. Orientation, mood and affect could not be determined. LABS: Hemoglobin is 8.4, white count 3.5. BUN of 49, creatinine 4.57. Electrolytes have been normal. Blood culture has been negative so far. DIAGNOSTIC IMPRESSION AND PLAN: Patient with extensive oral thrush in this patient who was recently admitted acute influenza and pneumonia and exposed to however no clear history of exposure to fluconazole. PLAN: 1. We will continue with . 2. We will add 5 times a day. 3. We will monitor his clinical course closely and adjust medication further if needed. Thank you for this consultation. Will follow this patient along with you. MMODL / IJN: [id number] /
[2019-01-06] MEDS: CLOTRIMAZOLE TROCHE 10 MG TROCHE MUCOUS MEM SCH ×7 (00:28→23:06)
[2019-01-06] MEDS: INSULIN ASPART (NovoLOG) 100 UNIT/ML VIAL SQ SCH ×6 (00:28→20:24)
[2019-01-06] MEDS: DIALYSIS (PERIT 1.5%) 2,500 ML 30 G/2,000 ML BAG INTRAPERIT SCH ×6 (00:30→20:11)
[2019-01-06] MEDS: Acetaminophen-Codeine 300-30mg TAB PO PRN ×2 (00:35→04:36)
[2019-01-06 04:28] LABS: Glucose,Whole Blood 223 mg/dL (75-99)
[2019-01-06] MEDS: ACETAMINOPHEN IV (For NPO) 1,000 MG in EMPTY BAG 1 BAG IVPB PRN ×2 (05:04→17:20)
[2019-01-06 06:37] LABS: Anisocytosis Slight; Basophils % (A) 0 %; Eosinophils % (A) 0 %; HGB 8.9 gm/dL (13.0-17.5); Hypochromasia Marked; Lymphocytes # (A) 0.7 k/uL (1.0-4.8); Lymphocytes % (A) 13 %; MCH 28.8 pg (25.0-35.0); MCHC 31.9 g/dL (31.0-37.0); MCV 90.3 fL (80.0-100.0); Mean Platelet Volume 7.3; Monocytes # (A) 0.4 k/uL (0-1.0); Monocytes % (A) 7 %; Neutrophils # (A) 3.9 k/uL (1.3-7.7); Neutrophils % (A) 78 %; Platelet Count 448 k/uL (150-450); Poikilocytosis Slight; RBC 3.11 m/uL (4.30-5.90); RDW 17.9 % (11.5-15.5)
[2019-01-06 07:09] LABS: Calcium 7.9 mg/dL (8.4-10.2); Magnesium 2.1 mg/dL (1.6-2.3); Phosphorus 4.1 mg/dL (2.5-4.5); Potassium 3.9 mmol/L (3.5-5.1)
--- NOTE | 2019-01-06 07:40 | XR ---
EXAMINATION TYPE: XR chest 1V portable DATE OF EXAM: 01/06/2019 COMPARISON: Prior chest x-ray 01/05/2019 HISTORY: Shortness of breath TECHNIQUE: Single frontal view of the chest is obtained. FINDINGS: There is been interval increase in the bilateral airspace disease, interstitium is increas ed. No pneumothorax. Bibasilar increased density is noted. Heart is enlarged. Aorta is dense. Patient is rotated, there are cardiac leads. Dobbhoff tube no longer seen. IMPRESSION: Correlate for volume overload, congestive heart failure. Pneumonia not excluded.
[2019-01-06 08:39] LABS: Glucose,Whole Blood 103 mg/dL (75-99)
--- NOTE | 2019-01-06 10:00 | P.PN ---
Subjective Patient is seen in follow-up for end-stage renal disease. He is maintained on peritoneal dialysis. He pulled out his NG tube last night. He continues to have maroon-colored bowel movements - had 1 episode last night. Hemoglobin is 8.9 this morning. No issues with PD. Vital signs are stable. General: The patient appeared well nourished and normally developed. HEENT: Head exam is unremarkable. Neck is without jugular venous distension. LUNGS: Breath sounds decreased. HEART: Rate and Rhythm are regular. First and second heart sounds normal. No murmurs, rubs or gallops. ABDOMEN: Abdominal exam reveals normal bowel sounds. Non-tender and non- distended. No evidence of peritonitis. EXTREMITITES: No clubbing, cyanosis, or edema. Objective - Vital Signs Vital signs: Vital Signs Temp 97.1 F L 01/06/19 08:30 Pulse 73 01/06/19 09:00 Resp 17 01/06/19 09:00 BP 148/85 01/06/19 09:00 Pulse Ox 95 01/06/19 09:00 Intake & Output 01/05/19 01/06/19 01/06/19 17:59 06:59 18:59 Intake Total 60 Output Total 0 Balance 60 Weight Intake: IV 60 ACETAMINOPHEN IV (For NPO ) 1,000 mg In Empty Bag 1 bag @ 400 mls/hr IVPB Q6HR PRN Rx#:[id number] Fluconazole in NaCl,Iso- Osm 200 mg In Saline 1 100ml.bag @ 100 mls/hr IVPB Q24H [facility] Rx#: [id number] Sodium Chloride 0.9% 500 60 ml 500 ml @ 20 mls/hr IV .Q24H [facility] Rx#:[id number] Oral Tube Feeding Other Output: Urine 0 Other: # Voids # Bowel Movements - Labs CBC & Chem 7: 01/06/19 06:00 01/06/19 06:00 Labs: Abnormal Lab Results - Last 24 Hours (Table) 01/05/19 01/05/19 01/05/19 Range/Units : 09:28 12:15 RBC (4.30-5.90) m/uL Hgb (13.0-17.5) gm/dL Hct (39.0-53.0) % RDW (11.5-15.5) % Lymphocytes # (1.0-4.8) k/uL Sodium (137-145) mmol/L Chloride (98-107) mmol/L BUN (9-20) mg/dL Creatinine (0.66-1.25) mg/dL Glucose (74-99) mg/dL POC Glucose (mg/dL) 186 H 193 H 169 H (75-99) mg/dL Calcium (8.4-10.2) mg/dL 01/05/19 01/05/19 01/05/19 Range/Units 15:59 16:20 20:28 RBC (4.30-5.90) m/uL Hgb (13.0-17.5) gm/dL Hct (39.0-53.0) % RDW (11.5-15.5) % Lymphocytes # (1.0-4.8) k/uL Sodium (137-145) mmol/L Chloride (98-107) mmol/L BUN (9-20) mg/dL Creatinine (0.66-1.25) mg/dL Glucose (74-99) mg/dL POC Glucose (mg/dL) 137 H 138 H 151 H (75-99) mg/dL Calcium (8.4-10.2) mg/dL 01/05/19 01/06/19 01/06/19 Range/Units 23:48 04:26 06:00 RBC 3.11 L (4.30-5.90) m/uL Hgb 8.9 L (13.0-17.5) gm/dL Hct 28.0 L (39.0-53.0) % RDW 17.9 H (11.5-15.5) % Lymphocytes # 0.7 L (1.0-4.8) k/uL Sodium (137-145) mmol/L Chloride (98-107) mmol/L BUN (9-20) mg/dL Creatinine (0.66-1.25) mg/dL Glucose (74-99) mg/dL POC Glucose (mg/dL) 109 H 223 H (75-99) mg/dL Calcium (8.4-10.2) mg/dL 01/06/19 01/06/19 Range/Units 06:00 08:36 RBC (4.30-5.90) m/uL Hgb (13.0-17.5) gm/dL Hct (39.0-53.0) % RDW (11.5-15.5) % Lymphocytes # (1.0-4.8) k/uL Sodium 133 L (137-145) mmol/L Chloride 97 L (98-107) mmol/L BUN 54 H (9-20) mg/dL Creatinine 4.83 H (0.66-1.25) mg/dL Glucose 123 H (74-99) mg/dL POC Glucose (mg/dL) 103 H (75-99) mg/dL Calcium 7.9 L (8.4-10.2) mg/dL Microbiology - Last 24 Hours (Table) 01/03/19 13:10 Blood Culture - Preliminary Blood No Growth after 48 hours Assessment and Plan Plan: Assessment: 1. End-stage renal disease maintained on peritoneal dialysis. 2. GI bleed. Patient did receive a dose of DDAVP on January 04. GI following. Also on Aranesp. 3. Oral thrush. Patient was receiving tube feeding but pulled heart his NG tube last night. 4. Hypokalemia from poor oral intake and PD losses. Status post placement. Better. 5. Chronic hypotension with concern for adrenal insufficiency. Blood pressures improved with IV steroids. He is also on midodrine. 6. Chronic kidney disease mineral bone disease. Plan: Maintain current PD exchanges. Discontinue IV hydrocortisone. Start Cortef 10 mg orally twice daily.
[2019-01-06] MEDS: SENNOSIDES-DOCUSATE SODIUM 1 EACH TAB PO SCH ×2 (11:13→20:19)
[2019-01-06] MEDS: AMIODARONE 200 MG TAB PO SCH (11:13)
[2019-01-06] MEDS: PANTOPRAZOLE 40 MG/10 ML VIAL IV SCH (11:13)
[2019-01-06] MEDS: MIDODRINE 5 MG TAB PO SCH ×3 (11:13→18:01)
[2019-01-06] MEDS: ATORVASTATIN 40 MG TAB PO SCH (11:13)
[2019-01-06] MEDS: LIDOCAINE 5% PATCH TOPICAL SCH (11:14)
[2019-01-06] MEDS: FENOFIBRATE 160 MG TAB PO SCH (11:14)
[2019-01-06] MEDS: SALT AND SODA MOUTHWASH 1,000 ML PO SCH ×4 (11:15→20:20)
[2019-01-06 11:26] LABS: Glucose,Whole Blood 117 mg/dL (75-99)
[2019-01-06] MEDS: ATENOLOL 25 MG TAB PO SCH (11:28)
[2019-01-06] MEDS: HYDROCORTISONE 10 MG TAB PO SCH ×2 (11:28→20:19)
[2019-01-06] MEDS: MAG HYDROX/AL HYDROX/SIMETH 30 ML, LIDOCAINE VISCOUS 30 ML, diphenhydrAMINE ELIXIR 75 M... PO SCH ×12 (12:23→20:19)
--- NOTE | 2019-01-06 12:38 | P.PN ---
Subjective Progress Note Date: 01/06/19 Principal diagnosis: acute lower GI bleeding most likely secondary to diverticular disease, and hypotension This is a pleasant 73-year-old gentleman who follows with Dr. Maddox as his primary care physician. He has a history of coronary artery disease with previous stent placement in 2011, atrial fibrillation, carotid stenosis with left endarterectomy, diabetes mellitus, end-stage renal failure receiving peritoneal dialysis, hyperlipidemia, hypertension, hypothyroidism, anxiety. The patient is a lifelong nonsmoker. The patient was just discharged from here on 01/02/2019 following an episode of acute hypoxic respiratory failure secondary to pneumonia, influenza A and acute on chronic systolic congestive heart failure. He also had some acute lower GI bleeding felt secondary to hemorrhoids. He was returned to the emergency room from [facility] on 01/03/2019 after being found with some bright red blood per rectum. Presenting hemoglobin 10.7. White count 4.7. Creatinine 6.17. Troponin 0.091. He was found to be hypotensive and received 2 L liters of fluid resuscitation. He did not require IV pressors. He was admitted to the ICU for the same. He is seen today in consultation. He is awake and alert in no acute distress. He is maintaining good O2 saturations in the mid 90s on room air. Chest x-ray shows some bilateral consolidation with small effusion secondary to congestive heart failure. He's been afebrile. Hemodynamically stable. White count 3.6. Hemoglobin 8.7. Creatinine 4.66. He is receiving his CAPD. Currently has a 0.9 normal saline at 20 ML's per hour. GI consult pending. Patient was reevaluated today on 01/05/2019, remains in the ICU, continues to have some bloody stools, hemodynamically stable, not requiring any blood transfusion so far since admission. Continues to have issues with his oropharyngeal thrush which is quite severe, and yesterday were able to place a Dobbhoff tube for nutritional support. Continues on peritoneal dialysis, and no major events over the last 24 hours. Patient looks frail, and chronically ill.labs were reviewed relatively normal electrolytes however his BUN is 49 creatinine 4.57. Hemog lobin is 8.4 today. WBC count is 3.5. His hemoglobin on admission was 10.7.patient denies shortness of breath, no chest pain, no nausea no vomiting, had multiple maroon colored stools over the last 24 hours. Reevaluated today on 01/06/2019, patient pulled his own Dobbhoff tube, and he doesn't wanted to be placed back. Feeling better, his oral thrush and stomatitis seems to be better, patient remains on cool solution, and I would recommend that we start some liquid diet only for today. And that is better than placing the Dobbhoff again. Patient remains on peritoneal dialysis, he is hemodynamically stable, no further episodes of any bleeding. Hemoglobin is stable at 8.9. WBC count is 5. *Normal BUN is 54 creatinine is 4.83. Patient denies any shortness of breath, no cough, no wheezing, no nausea, no vomiting, no abdominal pain. Objective - Vital Signs Vital signs: Vital Signs Temp 97.1 F L 01/06/19 08:30 Pulse 75 01/06/19 11:30 Resp 26 H 01/06/19 11:30 BP 131/72 01/06/19 11:30 Pulse Ox 64 L 01/06/19 11:30 Intake & Output 01/05/19 01/06/19 01/06/19 17:59 06:59 18:59 Intake Total 60 Output Total 0 Balance 60 Weight Intake: IV 60 ACETAMINOPHEN IV (For NPO ) 1,000 mg In Empty Bag 1 bag @ 400 mls/hr IVPB Q6HR PRN Rx#:[id number] Fluconazole in NaCl,Iso- Osm 200 mg In Saline 1 100ml.bag @ 100 mls/hr IVPB Q24H [facility] Rx#: [id number] Sodium Chloride 0.9% 500 60 ml 500 ml @ 20 mls/hr IV .Q24H [facility] Rx#:[id number] Oral Tube Feeding Other Output: Urine 0 Other: # Voids # Bowel Movements - Exam GENERAL EXAM: Flat affect. Alert, comfortable in no apparent distress. HEAD: Normocephalic. EYES: Normal reaction of pupils, equal size. NOSE: Clear with pink turbinates. THROAT: significant thrush noted involving the whole mouth tongue, oropharynx, and inner cheeks NECK: No masses, no JVD. CHEST: No chest wall deformity. LUNGS: Equal air entry with crackles in the posterior bases. CVS: S1 and S2 normal with audible murmur, regular rhythm. ABDOMEN: CAPD catheter in place. No hepatosplenomegaly, normal bowel sounds, no guarding or rigidity. SPINE: No scoliosis or deformity SKIN: No rashes CENTRAL NERVOUS SYSTEM: No focal deficits, tone is normal in all 4 extremities. EXTREMITIES: No clubbing, edema or cyanosis - Labs CBC & Chem 7: 01/06/19 06:00 01/06/19 06:00 Labs: Abnormal Lab Results - Last 24 Hours (Table) 01/05/19 01/05/19 01/05/19 Range/Units 12:15 15:59 16:20 RBC (4.30-5.90) m/uL Hgb (13.0-17.5) gm/dL Hct (39.0-53.0) % RDW (11.5-15.5) % Lymphocytes # (1.0-4.8) k/uL Sodium (137-145) mmol/L Chloride (98-107) mmol/L BUN (9-20) mg/dL Creatinine (0.66-1.25) mg/dL Glucose (74-99) mg/dL POC Glucose (mg/dL) 169 H 137 H 138 H (75-99) mg/dL Calcium (8.4-10.2) mg/dL 01/05/19 01/05/19 01/06/19 Range/Units 20:28 23:48 04:26 RBC (4.30-5.90) m/uL Hgb (13.0-17.5) gm/dL Hct (39.0-53.0) % RDW (11.5-15.5) % Lymphocytes # (1.0-4.8) k/uL Sodium (137-145) mmol/L Chloride (98-107) mmol/L BUN (9-20) mg/dL Creatinine (0.66-1.25) mg/dL Glucose (74-99) mg/dL POC Glucose (mg/dL) 151 H 109 H 223 H (75-99) mg/dL Calcium (8.4-10.2) mg/dL 01/06/19 01/06/19 01/06/19 Range/Units 06:00 06:00 08:36 RBC 3.11 L (4.30-5.90) m/uL Hgb 8.9 L (13.0-17.5) gm/dL Hct 28.0 L (39.0-53.0) % RDW 17.9 H (11.5-15.5) % Lymphocytes # 0.7 L (1.0-4.8) k/uL Sodium 133 L (137-145) mmol/L Chloride 97 L (98-107) mmol/L BUN 54 H (9-20) mg/dL Creatinine 4.83 H (0.66-1.25) mg/dL Glucose 123 H (74-99) mg/dL POC Glucose (mg/dL) 103 H (75-99) mg/dL Calcium 7.9 L (8.4-10.2) mg/dL 01/06/19 Range/Units 11:25 RBC (4.30-5.90) m/uL Hgb (13.0-17.5) gm/dL Hct (39.0-53.0) % RDW (11.5-15.5) % Lymphocytes # (1.0-4.8) k/uL Sodium (137-145) mmol/L Chloride (98-107) mmol/L BUN (9-20) mg/dL Creatinine (0.66-1.25) mg/dL Glucose (74-99) mg/dL POC Glucose (mg/dL) 117 H (75-99) mg/dL Calcium (8.4-10.2) mg/dL Microbiology - Last 24 Hours (Table) 01/03/19 13:10 Blood Culture - Preliminary Blood No Growth after 48 hours Assessment and Plan Assessment: Plan: 1. Lower GI bleed , most likely diverticular in nature unless for otherwise. 2. Recent influenza infection, resolved and treated. 3. Severe thrush with tongue ulcers. Continue feeding via Dobbhoff, and thrush is addressed accordingly. 4. chronic end-stage renal disease, on CAPD. 5. CAD post-PCI. Inactive at present 6. Paroxysmal atrial fibrillation. continue beta blockers/atenolol. 7. Hypertension. Fairly well controlled at present. 8. Hyperlipidemia. on Lopid and Lipitor. 9. Adrenal insufficiency. Continue hydrocortisone 10. Severe protein calorie malnutrition. being fed via Dobbhoff which should help. 12. GERD, on PPI by mouth 13. Diabetes mellitus type 2. on insulin. 14. End-stage renal disease on CAPD. Being followed by nephrology, CAPD is being continued to 15. Anemia of chronic kidney disease. continue Aranesp Recommendation: Continue present supportive care measures, patient could be tried on liquid diet and advanced slowly since he doesn't want the Dobbhoff tube to be placed back again. Continue treatment plan as outlined above for each individual issue, and I feel the patient could be transferred out of the ICU to a regular medical floor, and we will follow as needed. Patient continues to have multiple complex medical issues as outlined above, but all of them are b eing addressed by the admitting physician. No need for further stay in the ICU at this point. Time with Patient: Less than 30
--- NOTE | 2019-01-06 13:57 | P.PN ---
Subjective This is a 73-year-old male one of Dr. Maddox with a previous medical history significant for CAD post-PCI and stent placement, atrial fibrillation, chronic systolic heart failure, and stage renal disease on peritoneal dialysis, hypertension and hypertensive cardio vascular disease, hyperlipidemia, enlarged prostate, severe protein calorie malnutrition, patient was just discharged from the hospital yesterday after a prolonged hospital stay almost a month when he was admitted to the hospital for acute hypoxemic respiratory failure due to combination of influenza pneumonia as well as acute on chronic systolic heart failure with fluid overload and he was just discharged yesterday to go to [facility] for physical therapy and rehabilitation and prior to that he was hospitalized at our institution back in October 2018 for open reduction and internal fixation and IM nailing of the right hip due to the hip fracture, patient spent less than 24 hours at [facility] when he developed to have a significant bright red blood per rectum and he was immediately sent back to the ER at [facility] patient was admitted to the intensive care unit for evaluation by gastroenterology online editor consultation was obtained from Dr. Smallwood, patient prognosis remains guarded. 01/04: Patient is been afebrile, blood pressure 125/98, pulse ox 95% on room air, heart rate running in the 60s and 70s. White count 3.6, hemoglobin 8.7, platelet count 248. Sodium 136, potassium 3.4, chloride 108, CO2 21, BUN 50, creatinine 4.66. Patient is on CAPD managed by nephrology. With blood glucose ran between 94 and 185. Patient has been seen by GI with no plan for procedure at this point. Patient has had no bleeding. Hemoglobin is 8.7. Patient is al so had no episodes of hypotension. Patient is complaining of back pain and baclofen will be added. He is currently on cool solution and salt and baking soda mouthwash will be added to that. Brother is at the bedside and has been updated about current plan. Discharge plan will be to return to [facility] to complete course of rehab for right hip surgery. 01/05: Yesterday afternoon, we made patient nothing by mouth due to difficulty swallowing and coughing trying to take his cool solution. Speech therapy was added. Diflucan was added IV. Dobbhoff and tube feedings started severe protein calorie malnutrition. Patient did receive 1 dose of desmopressin yesterday afternoon. White count is currently 3.5, hemoglobin 8.4, platelet count 3 and 65. Sodium 135, potassium 3.9, chloride 104. CO2 22, BUN 49 and creatinine 4.57. Blood sugars running between 140 and 193. Blood culture shows no growth after 24 hours. Repeat chest x-ray shows peripheral reticular opacities may represent interstitial fluid overload versus fibrosis. Patient is followed by Dr. Chun and continued on CAPD. Solu-Cortef decreased to 50 mg twice daily. Patient had 1 bloody stool last night and a smear only this morning. He is having significant sputum production for which a sputum culture will be requested. 01/06: Patient evaluated this afternoon. Patient removed his Dobbhoff tube early this morning. He continues to be treated for severe oropharyngeal thrush. He continue with peritoneal dialysis without complications. Blood cultures show no growth to date. Hemoglobin 8.9, stable. WBC 5.0, sodium 133, BUN 54, creatinine 4.83, potassium 3.9. Repeat chest x-ray shows congestive heart failure, pneumonia cannot be excluded infectious disease on consult. Sputum cultures have been requested. He'll continue on PD exchanges. Cortef added 10 mg twice daily, IV hydrocortisone discontinued. He will start a liquid diet today, ensure 3 times a day has been added. He will be transferred out to the ICU to day. Objective - Vital Signs Vital signs: Vital Signs Temp 97.1 F L 01/06/19 08:30 Pulse 73 01/06/19 09:00 Resp 17 01/06/19 09:00 BP 148/85 01/06/19 09:00 Pulse Ox 95 01/06/19 09:00 Intake & Output 01/05/19 01/06/19 01/06/19 17:59 06:59 18:59 Intake Total 60 Output Total 0 Balance 60 Weight Intake: IV 60 ACETAMINOPHEN IV (For NPO ) 1,000 mg In Empty Bag 1 bag @ 400 mls/hr IVPB Q6HR PRN Rx#:[id number] Fluconazole in NaCl,Iso- Osm 200 mg In Saline 1 100ml.bag @ 100 mls/hr IVPB Q24H [facility] Rx#: [id number] Sodium Chloride 0.9% 500 60 ml 500 ml @ 20 mls/hr IV .Q24H [facility] Rx#:[id number] Oral Tube Feeding Other Output: Urine 0 Other: # Voids # Bowel Movements - Constitutional General appearance: Present: cooperative, no acute distress - EENT Eyes: Present: EOMI, PERRLA, normal appearance - Neck Neck: Present: normal ROM. Absent: lymphadenopathy, stridor, thyromegaly Thyroid: bilateral: normal size, negative: enlarged, firm, nodule - Respiratory Respiratory: bilateral: CTA, diminished, negative: rales, rhonchi, wheezing - Cardiovascular Rhythm: regular Heart sounds: normal: S1, S2 - Gastrointestinal General gastrointestinal: Present: normal bowel sounds, soft. Absent: distended, hepatomegaly, organomegaly - Neurologic Neurologic: Present: CNII-XII intact. Absent: focal deficits - Musculoskeletal Musculoskeletal: Present: generalized weakness, strength equal bilaterally - Psychiatric Psychiatric: Present: A&O x's 3, appropriate affect, intact judgment & insight - Labs CBC & Chem 7: 01/06/19 06:00 01/06/19 06:00 Labs: Abnormal Lab Results - Last 24 Hours (Table) 01/05/19 01/05/19 01/05/19 Range/Units 12:15 15:59 16:20 RBC (4.30-5.90) m/uL Hgb (13.0-17.5) gm/dL Hct (39.0-53.0) % RDW (11.5-15.5) % Lymphocytes # (1.0-4.8) k/uL Sodium (137-145) mmol/L Chloride (98-107) mmol/L BUN (9-20) mg/dL Creatinine (0.66-1.25) mg/dL Glucose (74-99) mg/dL POC Glucose (mg/dL) 169 H 137 H 138 H (75-99) mg/dL Calcium (8.4-10.2) mg/dL 01/05/19 01/05/19 01/06/19 Range/Units 20:28 23:48 04:26 RBC (4.30-5.90) m/uL Hgb (13.0-17.5) gm/dL Hct (39.0-53.0) % RDW (11.5-15.5) % Lymphocytes # (1.0-4.8) k/uL Sodium (137-145) mmol/L Chloride (98-107) mmol/L BUN (9-20) mg/dL Creatinine (0.66-1.25) mg/dL Glucose (74-99) mg/dL POC Glucose (mg/dL) 151 H 109 H 223 H (75-99) mg/dL Calcium (8.4-10.2) mg/dL 01/06/19 01/06/19 01/06/19 Range/Units 06:00 06:00 08:36 RBC 3.11 L (4.30-5.90) m/uL Hgb 8.9 L (13.0-17.5) gm/dL Hct 28.0 L (39.0-53.0) % RDW 17.9 H (11.5-15.5) % Lymphocytes # 0.7 L (1.0-4.8) k/uL Sodium 133 L (137-145) mmol/L Chloride 97 L (98-107) mmol/L BUN 54 H (9-20) mg/dL Creatinine 4.83 H (0.66-1.25) mg/dL Glucose 123 H (74-99) mg/dL POC Glucose (mg/dL) 103 H (75-99) mg/dL Calcium 7.9 L (8.4-10.2) mg/dL Microbiology - Last 24 Hours (Table) 01/03/19 13:10 Blood Culture - Preliminary Blood No Growth after 48 hours Assessment and Plan Plan: 1. Lower GI bleed of unclear etiology possible diverticular bleed. Type and cross and place on hold 2 units of packed red blood cells, transfuse for hemoglobin less than 7, keep the patient on nothing per mouth, GI consultation appreciated. No plan for procedure at this time. Protonix 40 mg IV push daily 2. Recent influenza a pneumonia. Patient did receive and finish Tamiflu treatment. 3. Severe thrush with tongue ulcers. Patient is currently on nothing per mouth. Continue cool solution with nystatin, salt water baking soda mouth rinse. 4. Chronic systolic heart failure. Continue with current CAPD. Continue atenolol. 5. CAD post-PCI. Stable at this time. Continue atenolol 12.5 mg orally once every day. 6. Paroxysmal atrial fibrillation. Stable at this time. Continue atenolol 12.5 mg orally once every day. 7. Hypertension. Blood pressures controlled. 8. Hyperlipidemia. We will continue with Lopid 600 mg orally twice every day and Lipitor 40 mg orally once every day. 9. Adrenal insufficiency. IV hydrocortisone discontinued, Cortef 10 mg twice a day added. 10. Severe protein calorie malnutrition. We will restart protein supplement today 11. Recurrent depression. We will continue with Remeron 15 mg orally once every day. 12. Severe GERD. Continue with PPI. 13. Diabetes mellitus type 2. Currently on Levemir 6 units at bedtime along with a sliding scale insulin. 14. End-stage renal disease on CAPD Nephrology on consult. 15. Anemia of chronic kidney disease. Currently on Aranesp. 16. Severe protein calorie malnutrition requiring Dobbhoff and tube feedings. Patient pulled out Dobbhoff, will hold off on replacing and see how patient does with liquid diet and advance as tolerated. 17. Possible aspiration. speech therapy evaluation. Sputum culture requested. CODE STATUS: No code. Discharge plan: Return to [facility] The above impression and plan of care have been discussed and directed by signing physician. Alma Overton nurse practitioner acting as scribe for signing physician.
[2019-01-06] MEDS: NOREPINEPHRINE 4 MG in SODIUM CHLORIDE 0.9% 250 ML IV SCH (15:43)
[2019-01-06] MEDS: FLUCONAZOLE IN NACL,ISO-OSM 200 MG in SALINE 1 100ML.BAG IVPB SCH (15:43)
[2019-01-06] MEDS: SODIUM CHLORIDE 0.9% 500 ML 500 ML IV SCH (17:20)
[2019-01-06 17:21] LABS: Glucose,Whole Blood 115 mg/dL (75-99)
[2019-01-06] MEDS: HYDROCORTISONE SUCCINATE 100 MG/2 ML VIAL IV SCH ×2 (19:00)
[2019-01-06 20:14] LABS: Glucose,Whole Blood 355 mg/dL (75-99)
[2019-01-06] MEDS: MIRTAZAPINE 15 MG TAB PO SCH (20:19)
[2019-01-07] LABS: Glucose,Whole Blood 69 mg/dL (75-99)
[2019-01-07 00:05] LABS: Glucose,Whole Blood 107 mg/dL (75-99)
[2019-01-07] MEDS: DIALYSIS (PERIT 1.5%) 2,500 ML 30 G/2,000 ML BAG INTRAPERIT SCH ×5 (00:19→17:17)
[2019-01-07] MEDS: SCOPOLAMINE 1.5MG/72HR PATCH TRANSDERM SCH (01:34)
[2019-01-07 04:06] LABS: Glucose,Whole Blood 322 mg/dL (75-99)
[2019-01-07] MEDS: CLOTRIMAZOLE TROCHE 10 MG TROCHE MUCOUS MEM SCH ×4 (04:54→22:07)
--- NOTE | 2019-01-07 05:11 | PN ---
PROGRESS NOTE DATE OF SERVICE: 01/06/2019 REASON FOR FOLLOWUP: Oropharyngeal candidiasis. INTERVAL HISTORY: The patient is currently afebrile, has been breathing comfortably. He was slightly lethargic at time of evaluation. No nausea, no vomiting, or any diarrhea per the nursing staff. PHYSICAL EXAMINATION: On examination, the patient's blood pressure is 137/66 with a pulse of 64, temperature 97.7. He is 94% on 2 L nasal cannula. General description is an elderly male lying in bed in no distress. HEENT EXAMINATION: Oral thrush slight decreased in intensity. LUNGS: Unlabored breathing, clear to auscultation anteriorly. HEART: S1, S2. Regular rate and rhythm. ABDOMEN: Soft, no tenderness. EXTREMITIES: No edema of the feet. DIAGNOSTIC IMPRESSION AND PLAN: Patient with extensive oral thrush with concern for . Patient to continue with and the Diflucan while monitoring his clinical closely. Continue supportive care. MMODL / IJN: [id number] /
[2019-01-07] MEDS: INSULIN ASPART (NovoLOG) 100 UNIT/ML VIAL SQ SCH ×4 (07:19→22:14)
[2019-01-07 07:20] LABS: Glucose,Whole Blood 125 mg/dL (75-99)
[2019-01-07 07:53] LABS: Anisocytosis Slight; Basophils % (A) 0 %; Eosinophils # (A) 0.1 k/uL (0-0.7); Eosinophils % (A) 2 %; HCT 26.8 % (39.0-53.0); HGB 8.3 gm/dL (13.0-17.5); Hypochromasia Marked; Lymphocytes # (A) 0.4 k/uL (1.0-4.8); Lymphocytes % (A) 10 %; MCH 27.7 pg (25.0-35.0); MCHC 31.1 g/dL (31.0-37.0); MCV 89.1 fL (80.0-100.0); Mean Platelet Volume 6.7; Monocytes # (A) 0.3 k/uL (0-1.0); Monocytes % (A) 6 %; Neutrophils # (A) 3.5 k/uL (1.3-7.7); Neutrophils % (A) 80 %; Platelet Count 438 k/uL (150-450); Poikilocytosis Slight; RBC 3.01 m/uL (4.30-5.90); RDW 17.9 % (11.5-15.5); WBC 4.4 k/uL (3.8-10.6)
[2019-01-07 08:08] LABS: Calcium 7.7 mg/dL (8.4-10.2); Potassium 3.2 mmol/L (3.5-5.1)
[2019-01-07] MEDS: MIDODRINE 5 MG TAB PO SCH ×3 (08:36→17:21)
[2019-01-07] MEDS: ATORVASTATIN 40 MG TAB PO SCH (08:37)
[2019-01-07] MEDS: SENNOSIDES-DOCUSATE SODIUM 1 EACH TAB PO SCH ×2 (08:37→22:08)
[2019-01-07] MEDS: ATENOLOL 25 MG TAB PO SCH (08:37)
[2019-01-07] MEDS: PANTOPRAZOLE 40 MG/10 ML VIAL IV SCH (08:37)
[2019-01-07] MEDS: FENOFIBRATE 160 MG TAB PO SCH (08:37)
[2019-01-07] MEDS: AMIODARONE 200 MG TAB PO SCH (08:37)
[2019-01-07] MEDS: SALT AND SODA MOUTHWASH 1,000 ML PO SCH ×4 (08:38→22:40)
[2019-01-07] MEDS: MAG HYDROX/AL HYDROX/SIMETH 30 ML, LIDOCAINE VISCOUS 30 ML, diphenhydrAMINE ELIXIR 75 M... PO SCH ×12 (08:39→22:47)
--- NOTE | 2019-01-07 11:23 | PN ---
PROGRESS NOTE This is a 73-year-old male, well known to our group. He has had multiple admissions recently in fact he has been admitted both October, and December of 2018. This most recent admission was primarily related to the lower GI bleed, likely from diverticular disease. He has a previous colonoscopy and EGD done last year by Dr. Sanchez, which showed evidence of significant diverticulosis. The patient does not want another procedure at this time. The patient does have a history of severe thrush with tongue ulcers, a recent treated influenza infection as well as a history of chronic end- stage renal disease, currently on CAPD, CAD, status post PCI, paroxysmal atrial fibrillation, hypertension, hyperlipidemia, adrenal insufficiency, severe protein calorie malnutrition, gastroesophageal reflux disease, and type 2 diabetes mellitus. Finally, he does have a history of anemia of chronic disease. The chronic disease of course being his chronic kidney disease. Anyway, the patient is resting comfortably. He is lying in bed. No respiratory distress. He states he is feeling a bit better, not a lot. Two family members are with him. He apparently was in the ICU I believe yesterday and transferred out to the floor. The patient has no major complaints today, but is profoundly weak as reflected in the fact that he has a difficult time just raising his arms and legs. Current vital signs are reviewed. His temperature is 97.9, heart rate 61, respiratory rate 15, blood pressure 133/79, mean 97, 2 L saturation 95%. Appears in no acute distress. No respiratory distress. No audible wheezing. No use of accessory muscles or conversational dyspnea noted. HEENT examination is grossly unremarkable say for a significant tongue ulcer. It is at the tip of his tongue favoring the left side. No oral thrush noted. NECK: Supple. Full range of motion. No adenopathy, thyromegaly or neck vein distention. Cardiovascular examination reveals irregular rhythm and rate. Heart rate is about 80 beats per minute. He is clearly in atrial fibrillation. A soft systolic murmur is noted. Lungs reveal mostly clear breath sounds. A few scattered mild rhonchi. No wheezes or crackles. ABDOMEN: Soft. Bowel sounds are heard. Extremities are intact. No cyanosis, clubbing, or edema. Skin without rash. Neurologic examination is brief but nonfocal. He has got diffuse weakness throughout. It is symmetric. LABS: Labs are reviewed. White count 4.4, hemoglobin 8.3, hematocrit 26.8, platelet count 438,000. Sodium 132, potassium 3.2, chloride 96, CO2 of 26, BUN and creatinine were 47 and 4.73. Anion gap is normal. No recent chest x-ray to report. The chest x-ray from January 06 shows mild volume overload/CHF. Medications are reviewed. ASSESSMENT: 1. Lower gastrointestinal bleed, likely secondary to previously discovered diverticular disease/diverticulosis. 2. Recently treated influenza infection. 3. Severe oropharyngeal candidiasis with tongue ulcerations. 4. Chronic end-stage renal disease, currently on CAPD. 5. Anemia of chronic disease. 6. Coronary artery disease, status post percutaneous coronary intervention. 7. Paroxysmal atrial fibrillation. 8. Essential hypertension. 9. Hyperlipidemia. 10.Chronic adrenal insufficiency. 11.Severe protein calorie malnutrition. 12.Gastroesophageal reflux disease. 13.Type 2 diabetes mellitus. PLAN: The patient's care at this time is supportive. The patient is being treated for an oropharyngeal candidiasis. He will continue to see Nephrology for his end-stage renal disease. His medications are reviewed and appear to be appropriate. He is on Diflucan IV. We will continue to follow. Prognosis is guarded. Chest x-ray shows some mild fluid overload consistent with the patient's underlying chronic kidney disease. MMODL / IJN: [id number] /
[2019-01-07 11:38] LABS: Glucose,Whole Blood 115 mg/dL (75-99)
--- NOTE | 2019-01-07 11:58 | P.PN ---
Subjective Progress Note Date: 01/07/19 This is a 73-year-old male one of Dr. Maddox with a previous medical history significant for CAD post-PCI and stent placement, atrial fibrillation, chronic systolic heart failure, and stage renal disease on peritoneal dialysis, hypertension and hypertensive cardio vascular disease, hyperlipidemia, enlarged prostate, severe protein calorie malnutrition, patient was just discharged from the hospital yesterday after a prolonged hospital stay almost a month when he was admitted to the hospital for acute hypoxemic respiratory failure due to combination of influenza pneumonia as well as acute on chronic systolic heart failure with fluid overload and he was just discharged yesterday to go to [facility] for physical therapy and rehabilitation and prior to that he was hospitalized at our institution back in October 2018 for open reduction and internal fixation and IM nailing of the right hip due to the hip fracture, patient spent less than 24 hours at [facility] when he developed to have a signifi cant bright red blood per rectum and he was immediately sent back to the ER at [facility] patient was admitted to the intensive care unit for evaluation by gastroenterology manager e commerce consultation was obtained from Dr. Smallwood, patient prognosis remains guarded. 01/04: Patient is been afebrile, blood pressure 125/98, pulse ox 95% on room air, heart rate running in the 60s and 70s. White count 3.6, hemoglobin 8.7, platelet count 248. Sodium 136, potassium 3.4, chloride 108, CO2 21, BUN 50, creatinine 4.66. Patient is on CAPD managed by nephrology. With blood glucose ran between 94 and 185. Patient has been seen by GI with no plan for procedure at this point. Patient has had no bleeding. Hemoglobin is 8.7. Patient is also had no episodes of hypotension. Patient is complaining of back pain and baclofen will be added. He is currently on cool solution and salt and baking soda mouthwash will be added to that. Brother is at the bedside and has been updated about current plan. Discharge plan will be to return to [facility] to complete course of rehab for right hip surgery. 01/05: Yesterday afternoon, we made patient nothing by mouth due to difficulty swallowing and coughing trying to take his cool solution. Speech therapy was added. Diflucan was added IV. Dobbhoff and tube feedings started severe protein calorie malnutrition. Patient did receive 1 dose of desmopressin yesterday afternoon. White count is currently 3.5, hemoglobin 8.4, platelet count 3 and 65. Sodium 135, potassium 3.9, chloride 104. CO2 22, BUN 49 and creatinine 4.57. Blood sugars running between 140 and 193. Blood culture shows no growth after 24 hours. Repeat chest x-ray shows peripheral reticular opacities may represent interstitial fluid overload versus fibrosis. Patient is followed by Dr. Chun and continued on CAPD. Solu-Cortef decreased to 50 mg twice daily. Patient had 1 bloody stool last night and a smear only this morning. He is having significant sputum production for which a sputum culture will be requested. 01/06: Patient evaluated this afternoon. Patient removed his Dobbhoff tube early this morning. He continues to be treated for severe oropharyngeal thrush. He continue with peritoneal dialysis without complications. Blood cultures show no growth to date. Hemoglobin 8.9, stable. WBC 5.0, sodium 133, BUN 54, creatinine 4.83, potassium 3.9. Repeat chest x-ray shows congestive heart failure, pneumonia cannot be excluded infectious disease on consult. Sputum cultures have been requested. He'll continue on PD exchanges. Cortef added 10 mg twice daily, IV hydrocortisone discontinued. He will start a liquid diet today, ensure 3 times a day has been added. He will be transferred out to the ICU today. 01/07: The patient is now seen on the [facility] floor. Patient's mouth continues to be sore and he states he has no appetite. His tongue still has some denuded areas but otherwise improving. PT and OT is following. Speech therapy is performing modified barium swallow today. Patient has been seen by Dr. Valdes and he is in agreement with current treatment with Diflucan IV and oral meds. Review of Systems Constitutional: Reports anorexia, Reports chronic pain, Reports fatigue, Reports lethargy, Reports malaise, Reports weakness, Reports weight loss Eyes, Ears, nose, mouth and throat: Reports dysphagia, Reports mouth pain, Reports sore throat Cardiovascular: Reports shortness of breath, Denies chest pain, Denies decreased exercise tolerance, Denies dyspnea on exertion, Denies orthopnea, Denies rapid heart beat, Denies syncope Respiratory: Reports home oxygen, Denies congestion, Denies cough with sputum, Denies sleep apnea, Denies snoring, Denies wheezing Gastrointestinal: Reports change in bowel habits, denies hematochezia, Reports nausea, Denies abdominal pain, Denies coffee ground emesis, Denies dyspepsia, Denies excessive gas, Denies heartburn, Denies hematemesis, Denies jaundice, Denies lactose intolerance, Denies melena, Denies vomiting Genitourinary: Denies dysuria Musculoskeletal: Reports atrophy, Reports gait dysfunction, Reports muscle weakness, Reports myalgias Integumentary: Denies pruritus, Denies rash Neurological: Denies numbness, Denies weakness Psychiatric: Reports anxiety, Reports depression, Reports sadness/tearfulness, Reports sleep disturbances, Denies suicidal ideation Endocrine: Denies fatigue, Denies weight change, reports decreased appetite Objective - Vital Signs Vital signs: Vital Signs Temp 97.9 F 01/07/19 07:00 Pulse 61 01/07/19 07:00 Resp 15 01/07/19 07:00 BP 133/79 01/07/19 07:00 Pulse Ox 93 L 01/07/19 08:50 Intake & Output 01/06/19 01/07/19 01/07/19 18:59 06:59 18:59 Intake Total 60 540 Output Total 0 Balance 60 540 Weight 57.5 kg Intake: IV 60 Sodium Chloride 0.9% 500 60 ml 500 ml @ 20 mls/hr IV .Q24H LULA Rx#:[id number] Intake, IV Titration 200 Amount Sodium Chloride 0.9% 500 200 ml 500 ml @ 20 mls/hr IV .Q24H LULA Rx#:[id number] Oral 340 Output: Urine 0 - Exam General appearance: no distress, thin, patient appears comfortable - EENT Eyes: anicteric sclerae, EOMI, PERRLA, no ptosis, no scleral icterus ENT: hearing grossly normal, NA/AT, no normal oropharynx, other (Tongue ulcers with thrush.), pharyngeal erythema, thrush, Dobbhoff in place Ears: - Neck Neck: no lymphadenopathy, normal ROM, no rigidity, no stridor, no thyromegaly Carotids: - Respiratory Respiratory: - Cardiovascular Rhythm: irregularly irregular Heart sounds: - Gastrointestinal General gastrointestinal: normal bowel sounds, soft, no tenderness, no umbilical hernia, no ventral hernia (There is PD catheter in place.) - Integumentary Integumentary: decreased turgor - Neurologic Neurologic: focal deficits - Musculoskeletal Musculoskeletal: generalized weakness - Psychiatric Psychiatric: A&O x's 3, no appropriate affect, intact judgment & insight - Labs CBC & Chem 7: 01/07/19 06:54 01/07/19 06:54 Labs: Abnormal Lab Results - Last 24 Hours (Table) 01/06/19 01/06/19 01/06/19 Range/Units 11:25 17:14 20:01 RBC (4.30-5.90) m/uL Hgb (13.0-17.5) gm/dL Hct (39.0-53.0) % RDW (11.5-15.5) % Lymphocytes # (1.0-4.8) k/uL Sodium (137-145) mmol/L Potassium (3.5-5.1) mmol/L Chloride (98-107) mmol/L BUN (9-20) mg/dL Creatinine (0.66-1.25) mg/dL POC Glucose (mg/dL) 117 H 115 H 355 H (75-99) mg/dL Calcium (8.4-10.2) mg/dL 01/06/19 01/07/19 01/07/19 Range/Units 23:44 00:04 04:04 RBC (4.30-5.90) m/uL Hgb (13.0-17.5) gm/dL Hct (39.0-53.0) % RDW (11.5-15.5) % Lymphocytes # (1.0-4.8) k/uL Sodium (137-145) mmol/L Potassium (3.5-5.1) mmol/L Chloride (98-107) mmol/L BUN (9-20) mg/dL Creatinine (0.66-1.25) mg/dL POC Glucose (mg/dL) 69 L 107 H 322 H (75-99) mg/dL Calcium (8.4-10.2) mg/dL 01/07/19 01/07/19 01/07/19 Range/Units 06:54 06:54 07:06 RBC 3.01 L (4.30-5.90) m/uL Hgb 8.3 L (13.0-17.5) gm/dL Hct 26.8 L (39.0-53.0) % RDW 17.9 H (11.5-15.5) % Lymphocytes # 0.4 L (1.0-4.8) k/uL Sodium 132 L (137-145) mmol/L Potassium 3.2 L (3.5-5.1) mmol/L Chloride 96 L (98-107) mmol/L BUN 47 H (9-20) mg/dL Creatinine 4.73 H (0.66-1.25) mg/dL POC Glucose (mg/dL) 125 H (75-99) mg/dL Calcium 7.7 L (8.4-10.2) mg/dL Microbiology - Last 24 Hours (Table) 01/03/19 13:10 Blood Culture - Preliminary Blood No Growth after 72 hours Assessment and Plan Plan: 1. Lower GI bleed of unclear etiology possible diverticular bleed. Type and cross and place on hold 2 units of packed red blood cells, transfuse for hemoglobin less than 7, keep the patient on nothing per mouth, GI consultation appreciated. No plan for procedure at this time. Protonix 40 mg IV push every 12 hours, consult with Dr. Smallwood. 2. Recent influenza A pneumonia. Patient did receive and finish Tamiflu treatment. 3. Severe thrush with tongue ulcers. Patient is currently on nothing per mouth. Continue cool solution with nystatin, salt water baking soda mouth rinse, IV Diflucan. Consult with Dr. Lambert appreciated.. 4. Chronic systolic heart failure. Continue with current CAPD. Continue atenolol. 5. CAD post-PCI. Stable at this time. Continue atenolol 12.5 mg orally once every day. 6. Paroxysmal atrial fibrillation. Stable at this time. Continue atenolol 12.5 mg orally once every day. 7. Hypertension. Blood pressures pre-much controlled. 8. Hyperlipidemia. We will continue with Lopid 600 mg orally twice every day and Lipitor 40 mg orally once every day. 9. Adrenal insufficiency. Patient may need to be on hydrocortisone 50 mg IV push decreased to every 12 hours. 10. Severe protein calorie malnutrition. We will restart protein supplement when the patient is stable. 11. Recurrent depression. We will continue with Remeron 15 mg orally once every day. 12. Severe GERD. Continue with PPI. 13. Diabetes mellitus type 2. Currently on Levemir 6 units at bedtime along with a sliding scale insulin. 14. End-stage renal disease on CAPD. Consult nephrology. 15. Anemia of chronic kidney disease. Currently on Aranesp. 16. Severe protein calorie malnutrition requiring Dobbhoff and tube feedings. Patient pulled out Dobbhoff, will hold off on replacing and see how patient does with liquid diet and advance as tolerated. 17. Possible aspiration. Patient is been made nothing by mouth, speech therapy evaluation. Dobbhoff and tube feedings for nutrition. Sputum culture requested. CODE STATUS: No code. Discharge plan: Return to [facility] on Monday Impression and plan of care have been directed as dictated by the signing physician. Margot Dorado nurse practitioner acting as scribe for signing physician.
[2019-01-07] MEDS: HYDROCORTISONE 10 MG TAB PO SCH ×2 (13:35→22:40)
[2019-01-07] MEDS: LIDOCAINE 5% PATCH TOPICAL SCH ×2 (13:36→13:42)
[2019-01-07] MEDS: FLUCONAZOLE IN NACL,ISO-OSM 200 MG in SALINE 1 100ML.BAG IVPB SCH (13:37)
[2019-01-07] MEDS ORDERED: Potassium Replacement Protocol 1 EACH MISC MISCELLANE PRN (13:57)
[2019-01-07] MEDS: POTASSIUM CHLORIDE 10 MEQ in WATER FOR INJECTION 1 100ML.BAG IVPB SCH ×4 (15:04→20:26)
[2019-01-07] MEDS ORDERED: BISACODYL 10 MG SUPP RECTAL STA (15:28)
[2019-01-07 15:32] VITALS: BMI 18.7
[2019-01-07] MEDS: Acetaminophen-Codeine 300-30mg TAB PO PRN (15:43)
[2019-01-07 16:54] LABS: Glucose,Whole Blood 106 mg/dL (75-99)
[2019-01-07] MEDS: SODIUM CHLORIDE 0.9% 500 ML 500 ML IV SCH (17:28)
[2019-01-07 21:03] LABS: Glucose,Whole Blood 126 mg/dL (75-99)
[2019-01-07 21:13] LABS: Hemoglobin A1C 5.5 % (4.0-6.0)
[2019-01-07] MEDS: MIRTAZAPINE 15 MG TAB PO SCH (22:08)
[2019-01-08] MEDS: DIALYSIS (PERIT 1.5%) 2,500 ML 37.5 G/2,500 ML BAG INTRAPERIT SCH (00:16)
[2019-01-08] MEDS: DIALYSIS (PERIT 1.5%) 2,000 ML 30 G/2,000 ML BAG INTRAPERIT SCH (00:50)
--- NOTE | 2019-01-08 00:57 | PN ---
PROGRESS NOTE DATE OF SERVICE: 01/07/2019. REASON FOR FOLLOW UP: Extensive thrush. INTERVAL HISTORY: The patient is afebrile. He is more awake and alert today. Denies having any chest pain. No cough. No abdominal pain or any diarrhea. PHYSICAL EXAMINATION: On examination, blood pressure is 146/84 with a pulse of 67, temperature 98.8, he is 94% 2 L nasal cannula. GENERAL DESCRIPTION: An elderly male lying in bed in no distress. HEENT: Oral thrush slightly decreased. LUNGS: Unlabored breathing. Clear to auscultation anteriorly. HEART: S1, S2. Regular rate and rhythm. ABDOMEN: Soft. LABS: Hemoglobin 8.2, white count 4.4, with a BUN of 47, creatinine 4.73. DIAGNOSTIC IMPRESSION AND PLAN: Patient with oral thrush with concern for oropharyngeal candidiasis. Patient currently covered with clotrimazole, in view of . Continue with Diflucan. Monitor his clinical course closely. Continue supportive care. MMODL / IJN: [id number] /
[2019-01-08] MEDS: CLOTRIMAZOLE TROCHE 10 MG TROCHE MUCOUS MEM SCH ×5 (02:45→22:07)
[2019-01-08] MEDS: DIALYSIS (PERIT 1.5%) 2,500 ML 30 G/2,000 ML BAG INTRAPERIT SCH ×3 (05:46→18:02)
[2019-01-08 07:10] LABS: Glucose,Whole Blood 132 mg/dL (75-99)
[2019-01-08 08:12] LABS: Calcium 7.9 mg/dL (8.4-10.2); Potassium 3.9 mmol/L (3.5-5.1)
[2019-01-08] MEDS: INSULIN ASPART (NovoLOG) 100 UNIT/ML VIAL SQ SCH ×4 (08:59→22:07)
[2019-01-08 09:14] LABS: Anisocytosis Slight; Basophils # (A) 0.1 k/uL (0-0.2); Basophils % (A) 1 %; Eosinophils # (A) 0.2 k/uL (0-0.7); Eosinophils % (A) 3 %; HCT 29.5 % (39.0-53.0); HGB 9.5 gm/dL (13.0-17.5); Hypochromasia Moderate; Lymphocytes # (A) 0.9 k/uL (1.0-4.8); Lymphocytes % (A) 14 %; MCH 27.9 pg (25.0-35.0); MCHC 32.1 g/dL (31.0-37.0); Mean Platelet Volume 8.7; Monocytes # (A) 0.5 k/uL (0-1.0); Monocytes % (A) 7 %; Neutrophils # (A) 4.9 k/uL (1.3-7.7); Neutrophils % (A) 74 %; Platelet Count 394 k/uL (150-450); Poikilocytosis Slight; RBC 3.39 m/uL (4.30-5.90); WBC 6.7 k/uL (3.8-10.6)
[2019-01-08] MEDS: SALT AND SODA MOUTHWASH 1,000 ML PO SCH ×3 (09:20→17:15)
[2019-01-08] MEDS: MIDODRINE 5 MG TAB PO SCH ×3 (09:21→17:13)
[2019-01-08] MEDS: SENNOSIDES-DOCUSATE SODIUM 1 EACH TAB PO SCH ×2 (09:22→22:06)
[2019-01-08] MEDS: AMIODARONE 200 MG TAB PO SCH (09:22)
[2019-01-08] MEDS: ATENOLOL 25 MG TAB PO SCH (09:22)
[2019-01-08] MEDS: PANTOPRAZOLE 40 MG/10 ML VIAL IV SCH (09:22)
[2019-01-08] MEDS: ATORVASTATIN 40 MG TAB PO SCH (09:23)
[2019-01-08] MEDS: FENOFIBRATE 160 MG TAB PO SCH (09:24)
[2019-01-08] MEDS: HYDROCORTISONE 10 MG TAB PO SCH ×2 (09:25→22:06)
[2019-01-08] MEDS: LIDOCAINE 5% PATCH TOPICAL SCH (09:25)
[2019-01-08] MEDS: MAG HYDROX/AL HYDROX/SIMETH 30 ML, LIDOCAINE VISCOUS 30 ML, diphenhydrAMINE ELIXIR 75 M... PO SCH ×12 (09:26→22:51)
--- NOTE | 2019-01-08 09:34 | P.PN ---
Subjective Progress Note Date: 01/08/19 Principal diagnosis: GI bleed oral candidiasis Denies rectal bleeding. Still reports slight constipation. Tolerating small amounts of softer foods. Receiving treatment for oral candidiasis oral ulcerations. Denies fever chills abdominal pain. Hemoglobin 9.5. Objective - Vital Signs Vital signs: Vital Signs Temp 97.8 F 01/08/19 07:00 Pulse 64 01/08/19 07:00 Resp 14 01/08/19 07:00 BP 136/76 01/08/19 07:00 Pulse Ox 99 01/08/19 07:00 Intake & Output 01/07/19 01/08/19 01/08/19 18:59 06:59 18:59 Output Total 0 Balance 0 Weight 57.5 kg 61 kg Output: Urine 0 Other: # Voids 0 0 # Bowel Movements 1 - Exam General appearance: The patient is alert, oriented, in no acute distress. HET: Head is normocephalic and atraumatic. Pupils are equal and reactive. Oropharynx with evidence of candidiasis erythema. Neck: Supple without lymphadenopathy. Trachea midline. Heart: S1 S2. Regular rate and rhythm. Lungs: No crackles or wheezes are heard. Abdomen: Soft, nontender, nondistended with bowel sounds. Peritoneal catheter without drainage or bleeding. No peritoneal signs. No palpable organomegaly or masses. Extremities: Normal skin color and turgor. No cyanosis, rash, ulceration, clubbing, or edema. Radial and pedal pulses are 2/4 bilaterally. Neurological: No focal deficits. Strength and sensation are grossly intact. - Labs CBC & Chem 7: 01/08/19 07:10 01/08/19 07:10 Labs: Abnormal Lab Results - Last 24 Hours (Table) 01/07/19 01/07/19 01/07/19 Range/Units 11:34 16:52 21:02 RBC (4.30-5.90) m/uL Hgb (13.0-17.5) gm/dL Hct (39.0-53.0) % RDW (11.5-15.5) % Lymphocytes # (1.0-4.8) k/uL Sodium (137-145) mmol/L Chloride (98-107) mmol/L BUN (9-20) mg/dL Creatinine (0.66-1.25) mg/dL Glucose (74-99) mg/dL POC Glucose (mg/dL) 115 H 106 H 126 H (75-99) mg/dL Calcium (8.4-10.2) mg/dL 01/08/19 01/08/19 01/08/19 Range/Units 06:59 07:10 07:10 RBC 3.39 L (4.30-5.90) m/uL Hgb 9.5 L (13.0-17.5) gm/dL Hct 29.5 L (39.0-53.0) % RDW 18.0 H (11.5-15.5) % Lymphocytes # 0.9 L (1.0-4.8) k/uL Sodium 132 L (137-145) mmol/L Chloride 96 L (98-107) mmol/L BUN 47 H (9-20) mg/dL Creatinine 5.02 H (0.66-1.25) mg/dL Glucose 111 H (74-99) mg/dL POC Glucose (mg/dL) 132 H (75-99) mg/dL Calcium 7.9 L (8.4-10.2) mg/dL Microbiology - Last 24 Hours (Table) 01/03/19 13:10 Blood Culture - Preliminary Blood No Growth after 96 hours Assessment and Plan (1) GI bleed Narrative/Plan: 73-year-old gentleman presents with mild abdominal pain rectal bleeding burgundy-colored in nature with acute blood loss anemia with underlying chronic pain syndrome, end-stage renal disease CAPD dependent history of colonic diverticulosis and constipation. Suspect rectal bleeding is colonic diverticular in nature however other differentials to consider is bleeding AVM, stercoral ulcer, possible inflammatory possible ischemic colitis. Presently no active rectal bleeding underlying constipation still being reported. Current Visit: Yes Status: Acute Code(s): K92.2 - GASTROINTESTINAL HEMORRHAGE, UNSPECIFIED SNOMED Code(s): 85096228 (2) Constipation Current Visit: Yes Status: Acute Code(s): K59.00 - CONSTIPATION, UNSPECIFIED SNOMED Code(s): 35821938 (3) Acute blood loss anemia Current Visit: Yes Status: Acute Code(s): D62 - ACUTE POSTHEMORRHAGIC ANEMIA SNOMED Code(s): 946009641 (4) Aphthous ulcer of mouth Current Visit: Yes Status: Acute Code(s): K12.0 - RECURRENT ORAL APHTHAE SNOMED Code(s): 885598550 (5) Oral candidiasis Current Visit: Yes Status: Acute Code(s): B37.0 - CANDIDAL STOMATITIS SNOMED Code(s): 93483177 (6) Acute on chronic renal failure Current Visit: No Status: Acute Code(s): N17.9 - ACUTE KIDNEY FAILURE, UNSPECIFIED; N18.9 - CHRONIC KIDNEY DISEASE, UNSPECIFIED SNOMED Code(s): 614309329 (7) Colon, diverticulosis Current Visit: No Status: Acute Code(s): K57.30 - DVRTCLOS OF LG INT W/O PERFORATION OR ABSCESS W/O BLEEDING SNOMED Code(s): 969586856 (8) Dependence on peritoneal dialysis Current Visit: No Status: Acute Code(s): Z99.2 - DEPENDENCE ON RENAL DIALYSIS SNOMED Code(s): 606771310 Plan: 1. CBC monitoring. Protonix 40 mg IV daily. Liquid soft diet as tolerated. Stool softener Senokot-S 2 tabs twice a day and avoid constipation. Will add MiraLAX 17 g daily. Will follow with you. 2. Continue with present medical therapy. Assessment and plan a care discussed with Dr. Sanchez
--- NOTE | 2019-01-08 10:01 | PN ---
PROGRESS NOTE Patient is seen for followup for end-stage renal disease. He was admitted to the hospital with gastrointestinal bleed. He also has severe oral ulcers and has now started to eat soft foods. He is able to tolerate the applesauce. PHYSICAL EXAMINATION: On examination today, blood pressure was 133/79, heart rate 61 per minute. He is afebrile. Examination of the heart S1, S2. Examination of lungs bilateral breath sounds are heard. Abdomen is soft, nontender. Examination of lower extremity shows no evidence of edema. [employer] exam is grossly intact. LAB: Show sodium 132, potassium 3.2, BUN 47, serum creatinine 4.73, hemoglobin 8.3 g/dL. ASSESSMENT: 1. End-stage renal disease, on peritoneal dialysis. Change IV peritoneal dialysis to q.6 hours from q.4 hours. 2. Hypokalemia, being replaced. 3. Gastrointestinal bleed, currently stable. No active bleeding noted maintained on Aranesp. 4. Recent influenza A with generalized debility, slowly improving. PLAN: Change dialysis to q.6 hours. We can try the midnight exchanges 2.5 L. Otherwise, patient does not like to be too full with the 2.5 L during the day. Currently, there is no evidence of volume overload or uremia. MMODL / IJN: [id number] /
[2019-01-08] MEDS: POLYETHYLENE GLYCOL 3350 17 GM POWD.PACK PO SCH (10:36)
[2019-01-08 11:52] LABS: Glucose,Whole Blood 138 mg/dL (75-99)
[2019-01-08] MEDS: LIDOCAINE VISCOUS 2% 15 ML CUP MUCOUS MEM SCH ×3 (12:28→22:50)
--- NOTE | 2019-01-08 12:31 | P.PN ---
Subjective Progress Note Date: 01/08/19 Principal diagnosis: Acute GI bleeding most likely secondary to diverticular disease and hypotension, resolved This is a pleasant 73-year-old gentleman who follows with Dr. Maddox as his primary care physician. He has a history of coronary artery disease with previous stent placement in 2011, atrial fibrillation, carotid stenosis with left endarterectomy, diabetes mellitus, end-stage renal failure receiving peritoneal dialysis, hyperlipidemia, hypertension, hypothyroidism, anxiety. The patient is a lifelong nonsmoker. The patient was just discharged from here on 01/02/2019 following an episode of acute hypoxic respiratory failure secondary to pneumonia, influenza A and acute on chronic systolic congestive heart failure. He also had some acute lower GI bleeding felt secondary to hemorrhoids. He was returned to the emergency room from [facility] on 01/03/2019 after being found with some bright red blood per rectum. Presenting hemoglobin 10.7. White count 4.7. Creatinine 6.17. Troponin 0.091. He was found to be hypotensive and received 2 L liters of fluid resuscitation. He did not require IV pressors. He was admitted to the ICU for the same. He is seen today in consultation. He is awake and alert in no acute distress. He is maintaining good O2 saturations in the mid 90s on room air. Chest x-ray shows some bilateral consolidation with small effusion secondary to congestive heart failure. He's been afebrile. Hemodynamically stable. White count 3.6. Hemoglobin 8.7. Creatinine 4.66. He is receiving his CAPD. Currently has a 0.9 normal saline at 20 ML's per hour. GI consult pending. Patient was reevaluated today on 01/05/2019, remains in the ICU, continues to have some bloody stools, hemodynamically stable, not requiring any blood transfusion so far since admission. Continues to have issues with his oropharyngeal thrush which is quite severe, and yesterday were able to place a Dobbhoff tube for nutritional support. Continues on peritoneal dialysis, and no major events over the last 24 hours. Patient looks frail, and chronically ill.labs were reviewed relatively normal electrolytes however his BUN is 49 creatinine 4.57. Hem oglobin is 8.4 today. WBC count is 3.5. His hemoglobin on admission was 10.7.patient denies shortness of breath, no chest pain, no nausea no vomiting, had multiple maroon colored stools over the last 24 hours. Reevaluated today on 01/06/2019, patient pulled his own Dobbhoff tube, and he doesn't wanted to be placed back. Feeling better, his oral thrush and stomatitis seems to be better, patient remains on cool solution, and I would recommend that we start some liquid diet only for today. And that is better than placing the Dobbhoff again. Patient remains on peritoneal dialysis, he is hemodynamically stable, no further episodes of any bleeding. Hemoglobin is stable at 8.9. WBC count is 5. *Normal BUN is 54 creatinine is 4.83. Patient denies any shortness of breath, no cough, no wheezing, no nausea, no vomiting, no abdominal pain. On 01/08/2019 patient seen in follow-up on medical surgical floor. Resting comfortably in bed, he is more awake, more interactive, and she is trying to eat his lunch, currently on full liquid diet, patient is feeding himself, but he states is still hard to taken food by mouth, because of ulcerations in his mouth. Otherwise his appetite is good, he would like to eat more if the pain in his mouth wasn't so bad, from pulmonary perspective he is stable, on 2 L per nasal cannula his pulse ox is 99%, respirations are even and nonlabored, lung sounds are issues that his bases, no coughing, no wheezing, no nausea or vomiting, no abdominal pain, and did have 2 bowel movements, last night and one this morning, with small amount of blood in it according to the patient. Today's lab work has been reviewed, showed a white blood cell count of 6.7, hem oglobin of 9.5, plate count is 394, sodium is 132, potassium is 3.9, chloride is 96, BUN is 47 creatinine is 5.02, patient is tolerating peritoneal dialysis exchanges. Blood pressure is 136/76, vital signs are stable. Objective - Vital Signs Vital signs: Vital Signs Temp 97.8 F 01/08/19 07:00 Pulse 64 01/08/19 07:00 Resp 14 01/08/19 07:00 BP 136/76 01/08/19 07:00 Pulse Ox 99 01/08/19 07:00 Intake & Output 01/07/19 01/08/19 01/08/19 18:59 06:59 18:59 Output Total 0 Balance 0 Weight 57.5 kg 61 kg Output: Urine 0 Other: Voiding Method CAPD # Voids 0 0 # Bowel Movements 1 - Exam GENERAL EXAM: Alert, pleasant, 73-year-old white male, little pale, and chronically ill-looking, but much more alert and conversant on today's exam compared to previous exams comfortable in no apparent distress. HEAD: Normocephalic/atraumatic. EYES: Normal reaction of pupils, equal size. Conjunctiva pink, sclera white. NOSE: Clear with pink turbinates. THROAT: No erythema or exudates. NECK: No masses, no JVD, no thyroid enlargement, no adenopathy. CHEST: No chest wall deformity. Symmetrical expansion. LUNGS: Equal air entry with no crackles, wheeze, rhonchi or dullness. CVS: Regular rate and rhythm, normal S1 and S2, no gallops, no murmurs, no rubs ABDOMEN: Soft, nontender. No hepatosplenomegaly, normal bowel sounds, no guard ing or rigidity. EXTREMITIES: No clubbing, no edema, no cyanosis, 2+ pulses and upper and lower extremities. MUSCULOSKELETAL: Muscle strength and tone normal. SPINE: No scoliosis or deformity SKIN: No rashes CENTRAL NERVOUS SYSTEM: Alert and oriented -3. No focal deficits, tone is normal in all 4 extremities. PSYCHIATRIC: Alert and oriented -3. Appropriate affect. Intact judgment and insight. - Labs CBC & Chem 7: 01/08/19 07:10 01/08/19 07:10 Labs: Abnormal Lab Results - Last 24 Hours (Table) 01/07/19 01/07/19 01/08/19 Range/Units 16:52 21:02 06:59 RBC (4.30-5.90) m/uL Hgb (13.0-17.5) gm/dL Hct (39.0-53.0) % RDW (11.5-15.5) % Lymphocytes # (1.0-4.8) k/uL Sodium (137-145) mmol/L Chloride (98-107) mmol/L BUN (9-20) mg/dL Creatinine (0.66-1.25) mg/dL Glucose (74-99) mg/dL POC Glucose (mg/dL) 106 H 126 H 132 H (75-99) mg/dL Calcium (8.4-10.2) mg/dL 01/08/19 01/08/19 01/08/19 Range/Units 07:10 07:10 11:50 RBC 3.39 L (4.30-5.90) m/uL Hgb 9.5 L (13.0-17.5) gm/dL Hct 29.5 L (39.0-53.0) % RDW 18.0 H (11.5-15.5) % Lymphocytes # 0.9 L (1.0-4.8) k/uL Sodium 132 L (137-145) mmol/L Chloride 96 L (98-107) mmol/L BUN 47 H (9-20) mg/dL Creatinine 5.02 H (0.66-1.25) mg/dL Glucose 111 H (74-99) mg/dL POC Glucose (mg/dL) 138 H (75-99) mg/dL Calcium 7.9 L (8.4-10.2) mg/dL Microbiology - Last 24 Hours (Table) 01/03/19 13:10 Blood Culture - Preliminary Blood No Growth after 96 hours Assessment and Plan Plan: 1. Lower GI bleed , most likely diverticular in nature unless for otherwise. 2. Recent influenza infection, resolved and treated. 3. Severe thrush with tongue ulcers. Continue feeding via Dobbhoff, and thrush is addressed accordingly. 4. chronic end-stage renal disease, on CAPD. 5. CAD post-PCI. Inactive at present 6. Paroxysmal atrial fibrillation. continue beta blockers/atenolol. 7. Hypertension. Fairly well controlled at present. 8. Hyperlipidemia. on Lopid and Lipitor. 9. Adrenal insufficiency. Continue hydrocortisone 10. Severe protein calorie malnutrition. Dobbhoff has been discontinued, and patient is tolerating oral intake 12. GERD, on PPI by mouth 13. Diabetes mellitus type 2. on insulin. 14. End-stage renal disease on CAPD. Being followed by nephrology, CAPD is being continued to 15. Anemia of chronic kidney disease. continue Aranesp Plan: Continue current medical treatment, hemoglobin is stable, hemodynamically patient is stable, he is tolerating oral intake, although still having some pain from oral ulcerations. Vital signs are stable, no hypotension, no active pulmonary issues, from pulmonary perspective he stable, and we will follow him on as-needed basis. I performed a history & physical examination of the patient and discussed their management with my nurse practitioner, Giovanna Banuelos. I reviewed the nurse practitioner's note and agree with the documented findings and plan of care. Lung sounds are positive for diminished at the bases. The findings and the impression was discussed with the patient. I attest to the documentation by the nurse practitioner. Time with Patient: Less than 30
[2019-01-08] MEDS: FLUCONAZOLE IN NACL,ISO-OSM 200 MG in SALINE 1 100ML.BAG IVPB SCH (13:38)
--- NOTE | 2019-01-08 14:24 | P.PN ---
Subjective Progress Note Date: 01/08/19 This is a 73-year-old male one of Dr. Maddox with a previous medical history significant for CAD post-PCI and stent placement, atrial fibrillation, chronic systolic heart failure, and stage renal disease on peritoneal dialysis, hypertension and hypertensive cardio vascular disease, hyperlipidemia, enlarged prostate, severe protein calorie malnutrition, patient was just discharged from the hospital yesterday after a prolonged hospital stay almost a month when he was admitted to the hospital for acute hypoxemic respiratory failure due to combination of influenza pneumonia as well as acute on chronic systolic heart failure with fluid overload and he was just discharged yesterday to go to [facility] for physical therapy and rehabilitation and prior to that he was hospitalized at our institution back in October 2018 for open reduction and internal fixation and IM nailing of the right hip due to the hip fracture, patient spent less than 24 hours at [facility] when he developed to have a signifi cant bright red blood per rectum and he was immediately sent back to the ER at [facility] patient was admitted to the intensive care unit for evaluation by gastroenterology hand trucker consultation was obtained from Dr. Smallwood, patient prognosis remains guarded. 01/04: Patient is been afebrile, blood pressure 125/98, pulse ox 95% on room air, heart rate running in the 60s and 70s. White count 3.6, hemoglobin 8.7, platelet count 248. Sodium 136, potassium 3.4, chloride 108, CO2 21, BUN 50, creatinine 4.66. Patient is on CAPD managed by nephrology. With blood glucose ran between 94 and 185. Patient has been seen by GI with no plan for procedure at this point. Patient has had no bleeding. Hemoglobin is 8.7. Patient is also had no episodes of hypotension. Patient is complaining of back pain and baclofen will be added. He is currently on cool solution and salt and baking soda mouthwash will be added to that. Brother is at the bedside and has been updated about current plan. Discharge plan will be to return to [facility] to complete course of rehab for right hip surgery. 01/05: Yesterday afternoon, we made patient nothing by mouth due to difficulty swallowing and coughing trying to take his cool solution. Speech therapy was added. Diflucan was added IV. Dobbhoff and tube feedings started severe protein calorie malnutrition. Patient did receive 1 dose of desmopressin yesterday afternoon. White count is currently 3.5, hemoglobin 8.4, platelet count 3 and 65. Sodium 135, potassium 3.9, chloride 104. CO2 22, BUN 49 and creatinine 4.57. Blood sugars running between 140 and 193. Blood culture shows no growth after 24 hours. Repeat chest x-ray shows peripheral reticular opacities may represent interstitial fluid overload versus fibrosis. Patient is followed by Dr. Chun and continued on CAPD. Solu-Cortef decreased to 50 mg twice daily. Patient had 1 bloody stool last night and a smear only this morning. He is having significant sputum production for which a sputum culture will be requested. 01/06: Patient evaluated this afternoon. Patient removed his Dobbhoff tube early this morning. He continues to be treated for severe oropharyngeal thrush. He continue with peritoneal dialysis without complications. Blood cultures show no growth to date. Hemoglobin 8.9, stable. WBC 5.0, sodium 133, BUN 54, creatinine 4.83, potassium 3.9. Repeat chest x-ray shows congestive heart failure, pneumonia cannot be excluded infectious disease on consult. Sputum cultures have been requested. He'll continue on PD exchanges. Cortef added 10 mg twice daily, IV hydrocortisone discontinued. He will start a liquid diet today, ensure 3 times a day has been added. He will be transferred out to the ICU today. 01/07: The patient is now seen on the [facility] floor. Patient's mouth continues to be sore and he states he has no appetite. His tongue still has some denuded areas but otherwise improving. PT and OT is following. Speech therapy is performing modified barium swallow today. Patient has been seen by Dr. Valdes and he is in agreement with current treatment with Diflucan IV and oral meds. 01/08: Patient was given a Dulcolax suppository last evening. MiraLAX has been added today. Mouth sores continue to be a problem. He is currently on a full l iquid diet. Patient has been followed by speech therapy recommending a full liquid nectar thick consistency diet and progress as tolerated. Respiratory status has been stable. Pulse ox 99% on room air, patient has been afebrile, heart rate in the 60s. White blood cell count of 6.7, hemoglobin of 9.5, plate count is 394, sodium is 132, potassium is 3.9, chloride is 96, BUN is 47 creatinine is 5.02. Blood pressure is 136/76, vital signs are stable. Only medicine has signed off and following on an as-needed basis. We are planning for patient return to [facility] tomorrow and patient is agreeable with this. Patient's brother is at the bedside. Review of Systems Constitutional: Reports anorexia, Reports chronic pain, Reports fatigue, Reports lethargy, Reports malaise, Reports weakness, Reports weight loss Eyes, Ears, nose, mouth and throat: Reports dysphagia, Reports mouth pain, Reports sore throat Cardiovascular: Reports shortness of breath, Denies chest pain, Denies decreased exercise tolerance, Denies dyspnea on exertion, Denies orthopnea, Denies rapid heart beat, Denies syncope Respiratory: Reports home oxygen, Denies congestion, Denies cough with sputum, Denies sleep apnea, Denies snoring, Denies wheezing Gastrointestinal: Reports change in bowel habits, denies hematochezia, Reports nausea, Denies abdominal pain, Denies coffee ground emesis, Denies dyspepsia, Denies excessive gas, Denies heartburn, Denies hematemesis, Denies jaundice, Denies lactose intolerance, Denies melena, Denies vomiting Genitourinary: Denies dysuria Musculoskeletal: Reports atrophy, Reports gait dysfunction, Reports muscle weakness, Reports myalgias Integumentary: Denies pruritus, Denies rash Neurological: Denies numbness, Denies weakness Psychiatric: Reports anxiety, Reports depression, Reports sadness/tearfulness, Reports sleep disturbances, Denies suicidal ideation Endocrine: Denies fatigue, Denies weight change, reports decreased appetite Objective - Vital Signs Vital signs: Vital Signs Temp 97.8 F 01/08/19 07:00 Pulse 64 01/08/19 07:00 Resp 14 01/08/19 07:00 BP 136/76 01/08/19 07:00 Pulse Ox 99 01/08/19 07:00 Intake & Output 01/07/19 01/08/19 01/08/19 18:59 06:59 18:59 Output Total 0 Balance 0 Weight 57.5 kg 61 kg Output: Urine 0 Other: # Voids 0 0 # Bowel Movements 1 - Exam General appearance: no distress, thin, patient appears comfortable - EENT Eyes: anicteric sclerae, EOMI, PERRLA, no ptosis, no scleral icterus ENT: hearing grossly normal, NA/AT, no normal oropharynx, other (Tongue ulcers with thrush.), pharyngeal erythema, thrush Ears: - Neck Neck: no lymphadenopathy, normal ROM, no rigidity, no stridor, no thyromegaly Carotids: - Respiratory Respiratory: - Cardiovascular Rhythm: irregularly irregular Heart sounds: - Gastrointestinal General gastrointestinal: normal bowel sounds, soft, no tenderness, no umbilical hernia, no ventral hernia (There is PD catheter in place.) - Integumentary Integumentary: decreased turgor - Neurologic Neurologic: focal deficits - Musculoskeletal Musculoskeletal: generalized weakness - Psychiatric Psychiatric: A&O x's 3, no appropriate affect, intact judgment & insight - Labs CBC & Chem 7: 01/08/19 07:10 01/08/19 07:10 Labs: Abnormal Lab Results - Last 24 Hours (Table) 01/07/19 01/07/19 01/07/19 Range/Units 11:34 16:52 21:02 RBC (4.30-5.90) m/uL Hgb (13.0-17.5) gm/dL Hct (39.0-53.0) % RDW (11.5-15.5) % Lymphocytes # (1.0-4.8) k/uL Sodium (137-145) mmol/L Chloride (98-107) mmol/L BUN (9-20) mg/dL Creatinine (0.66-1.25) mg/dL Glucose (74-99) mg/dL POC Glucose (mg/dL) 115 H 106 H 126 H (75-99) mg/dL Calcium (8.4-10.2) mg/dL 01/08/19 01/08/19 01/08/19 Range/Units 06:59 07:10 07:10 RBC 3.39 L (4.30-5.90) m/uL Hgb 9.5 L (13.0-17.5) gm/dL Hct 29.5 L (39.0-53.0) % RDW 18.0 H (11.5-15.5) % Lymphocytes # 0.9 L (1.0-4.8) k/uL Sodium 132 L (137-145) mmol/L Chloride 96 L (98-107) mmol/L BUN 47 H (9-20) mg/dL Creatinine 5.02 H (0.66-1.25) mg/dL Glucose 111 H (74-99) mg/dL POC Glucose (mg/dL) 132 H (75-99) mg/dL Calcium 7.9 L (8.4-10.2) mg/dL Microbiology - Last 24 Hours (Table) 01/03/19 13:10 Blood Culture - Preliminary Blood No Growth after 96 hours Assessment and Plan Plan: 1. Lower GI bleed of unclear etiology possible diverticular bleed. Type and cross and place on hold 2 units of packed red blood cells, transfuse for hemoglobin less than 7, keep the patient on nothing per mouth, GI consultation appreciated. No plan for procedure at this time. Protonix 40 mg IV push every 12 hours, consult with Dr. Smallwood. Pulmonary medicine is following on an as- needed basis. 2. Recent influenza A pneumonia. Patient did receive and finish Tamiflu treatment. 3. Severe thrush with tongue ulcers. Patient is currently on nothing per m outh. Continue cool solution with nystatin, salt water baking soda mouth rinse, IV Diflucan. Consult with Dr. Benson appreciated. 4. Chronic systolic heart failure. Continue with current CAPD. Continue atenolol. 5. CAD post-PCI. Stable at this time. Continue atenolol 12.5 mg orally once every day. 6. Paroxysmal atrial fibrillation. Stable at this time. Continue atenolol 12.5 mg orally once every day. 7. Hypertension. Blood pressures pre-much controlled. 8. Hyperlipidemia. We will continue with Lopid 600 mg orally twice every day and Lipitor 40 mg orally once every day. 9. Adrenal insufficiency. Patient may need to be on hydrocortisone 50 mg IV push decreased to every 12 hours. 10. Severe protein calorie malnutrition. We will restart protein supplement when the patient is stable. 11. Recurrent depression. We will continue with Remeron 15 mg orally once every day. 12. Severe GERD. Continue with PPI. 13. Diabetes mellitus type 2. Currently on Levemir 6 units at bedtime along with a sliding scale insulin. 14. End-stage renal disease on CAPD. Consult nephrology. 15. Anemia of chronic kidney disease. Currently on Aranesp. 16. Severe protein calorie malnutrition requiring Dobbhoff and tube feedings. Patient pulled out Dobbhoff, will hold off on replacing and see how patient does with liquid diet and advance as tolerated. 17. Possible aspiration. Patient is been made nothing by mouth, speech therapy evaluation. Dobbhoff and tube feedings for nutrition. Currently on a full liquid diet and nectar thick liquids. Sputum culture requested. CODE STATUS: No code. Discharge plan: Return to [facility] on Monday Impression and plan of care have been directed as dictated by the signing physician. Margot Dorado nurse practitioner acting as scribe for signing physician.
[2019-01-08 17:12] LABS: Glucose,Whole Blood 180 mg/dL (75-99)
[2019-01-08] MEDS: SODIUM CHLORIDE 0.9% 500 ML 500 ML IV SCH (17:15)
--- NOTE | 2019-01-08 20:25 | PN ---
PROGRESS NOTE Patient was seen this morning. He is awake comfortable, trying to eat. PHYSICAL EXAMINATION: This morning blood pressure was 136/76. The patient is afebrile. Heart rate about 56 per minute. Examination of the heart S1, S2. Examination of the lungs bilateral breath sounds are heard. Abdomen is soft, nontender. Exam of lower extremities shows no significant edema. LAB: Show hemoglobin 9.5, sodium 132, potassium 3.9. ASSESSMENT: 1. End-stage renal disease, on peritoneal dialysis. Continue current PD exchanges. 2. Severe oral ulcers with oral candidiasis, maintained on Diflucan, slowly improving. 3. Gastrointestinal bleed with no active bleeding noted. Hemoglobin is stable. 4. Anemia of chronic disease maintained on Aranesp. 5. Metabolic acidosis. Maintained on oral sodium bicarb, which I will decrease. PLAN: Decrease oral sodium bicarb. Continue to encourage increased oral intake. Avoid prolonged use of aluminium containing medications given his renal failure. MMODL / IJN: [id number] /
[2019-01-08 20:41] LABS: Glucose,Whole Blood 168 mg/dL (75-99)
[2019-01-08] MEDS: MIRTAZAPINE 15 MG TAB PO SCH (22:06)
--- NOTE | 2019-01-08 23:55 | PN ---
PROGRESS NOTE DATE OF SERVICE: 01/08/2019 REASON FOR FOLLOWUP: Extensive oral oropharyngeal candidiasis. INTERVAL HISTORY: The patient is currently afebrile. The patient is breathing comfortably. The patient continues to be lethargic, unable to provide any history. No nausea or vomiting or diarrhea reported by the nursing staff. PHYSICAL EXAMINATION: Blood pressure 135/69 with a pulse of 64, temperature 97.4. He is 95% on room air. General description is an elderly male lying in bed in no distress. HEENT examination shows dry oral mucous membrane. Overall thrush has decreased in intensity. LUNGS: Unlabored breathing. Clear to auscultation anteriorly. HEART: S1, S2. Regular rate and rhythm. ABDOMEN: Soft. No tenderness. LABS: Hemoglobin 9.5, white count 6.7, BUN 47, creatinine 5.02. DIAGNOSTIC IMPRESSION AND PLAN: Patient with extensive oral thrush, possible oropharyngeal candidiasis, for which the patient is currently covered with Diflucan and Mycelex Jose; to continue for now, while watching his clinical course closely. Continue with supportive care. MMODL / IJN: [id number] /
[2019-01-09] MEDS: SALT AND SODA MOUTHWASH 1,000 ML PO SCH ×3 (00:59→12:29)
[2019-01-09] MEDS: CLOTRIMAZOLE TROCHE 10 MG TROCHE MUCOUS MEM SCH ×3 (00:59→12:30)
[2019-01-09] MEDS: DIALYSIS (PERIT 1.5%) 2,500 ML 37.5 G/2,500 ML BAG INTRAPERIT SCH (00:59)
[2019-01-09] MEDS: DIALYSIS (PERIT 1.5%) 2,500 ML 30 G/2,000 ML BAG INTRAPERIT SCH ×2 (05:36→12:21)
[2019-01-09 06:01] VITALS: RESP 20
[2019-01-09 07:05] LABS: Glucose,Whole Blood 136 mg/dL (75-99)
[2019-01-09] MEDS: INSULIN ASPART (NovoLOG) 100 UNIT/ML VIAL SQ SCH ×2 (08:12→12:20)
[2019-01-09] MEDS: ATORVASTATIN 40 MG TAB PO SCH (08:12)
[2019-01-09] MEDS: AMIODARONE 200 MG TAB PO SCH (08:12)
[2019-01-09] MEDS: SENNOSIDES-DOCUSATE SODIUM 1 EACH TAB PO SCH (08:15)
[2019-01-09] MEDS: HYDROCORTISONE 10 MG TAB PO SCH (08:15)
[2019-01-09] MEDS: POLYETHYLENE GLYCOL 3350 17 GM POWD.PACK PO SCH (08:16)
[2019-01-09] MEDS: MAG HYDROX/AL HYDROX/SIMETH 30 ML, LIDOCAINE VISCOUS 30 ML, diphenhydrAMINE ELIXIR 75 M... PO SCH ×4 (08:17)
[2019-01-09] MEDS: ATENOLOL 25 MG TAB PO SCH (08:20)
[2019-01-09] MEDS: FENOFIBRATE 160 MG TAB PO SCH (08:20)
[2019-01-09] MEDS: MIDODRINE 5 MG TAB PO SCH ×2 (08:21→12:28)
[2019-01-09] MEDS: LIDOCAINE 5% PATCH TOPICAL SCH (08:21)
[2019-01-09] MEDS: LIDOCAINE VISCOUS 2% 15 ML CUP MUCOUS MEM SCH ×2 (08:22→13:33)
[2019-01-09] MEDS ORDERED: PANTOPRAZOLE 40 MG TABLET PO SCH (09:00)
--- NOTE | 2019-01-09 11:26 | P.DS ---
Providers Date of admission: 01/03/19 14:38 Expected date of discharge: 01/09/19 Attending physician: Carly Null Consults: 01/03/19 15:24 Consult Physician Urgent Consulting Provider: Beryl Smallwood Consult Reason/Comments: icu management Do you want consulting provider notified?: Already Contacted 01/03/19 18:58 Consult Physician Urgent Consulting Provider: Fallon Wilkinson Consult Reason/Comments: esrd, capd Do you want consulting provider notified?: Yes 01/05/19 11:23 Consult Physician Routine Consulting Provider: Erika Benson Consult Reason/Comments: refractory thrush Do you want consulting provider notified?: Yes Primary care physician: [facility] Course: This is a 73-year-old male one of Dr. Maddox with a previous medical history significant for CAD post-PCI and stent placement, atrial fibrillation, chronic systolic heart failure, and stage renal disease on peritoneal dialysis, hypertension and hypertensive cardio vascular disease, hyperlipidemia, enlarged prostate, severe protein calorie malnutrition, patient was just discharged from the hospital yesterday after a prolonged hospital stay almost a month when he was admitted to the hospital for acute hypoxemic respiratory failure due to combination of influenza pneumonia as well as acute on chronic systolic heart failure with fluid overload and he was just discharged yesterday to go to [facility] for physical therapy and rehabilitation and prior to that he was hospitalized at our institution back in October 2018 for open reduction and internal fixation and IM nailing of the right hip due to the hip fracture, patient spent less than 24 hours at [facility] when he developed to have a significant bright red blood per rectum and he was immediately sent back to the ER at [facility] patient was admitted to the intensive care unit for evaluation by gastroenterology rapid transit operator consultation was obtained from Dr. Smallwood, patient prognosis remains guarded. 01/04: Patient is been afebrile, blood pressure 125/98, pulse ox 95% on room air, heart rate running in the 60s and 70s. White count 3.6, hemoglobin 8.7, platelet count 248. Sodium 136, potassium 3.4, chloride 108, CO2 21, BUN 50, creatinine 4.66. Patient is on CAPD managed by nephrology. With blood glucose ran between 94 and 185. Patient has been seen by GI with no plan for procedure at this point. Patient has had no bleeding. Hemoglobin is 8.7. Patient is also had no episodes of hypotension. Patient is complaining of back pain and baclofen will be added. He is currently on cool solution and salt and baking soda mouthwash will be added to that. Brother is at the bedside and has been updated about current plan. Discharge plan will be to return to [facility] to complete course of rehab for right hip surgery. 01/05: Yesterday afternoon, we made patient nothing by mouth due to difficulty swallowing and coughing trying to take his cool solution. Speech therapy was added. Diflucan was added IV. Dobbhoff and tube feedings started severe protein calorie malnutrition. Patient did receive 1 dose of desmopressin yesterday afternoon. White count is currently 3.5, hemoglobin 8.4, platelet count 3 and 65. Sodium 135, potassium 3.9, chloride 104. CO2 22, BUN 49 and creatinine 4.57. Blood sugars running between 140 and 193. Blood culture shows no growth after 24 hours. Repeat chest x-ray shows peripheral reticular opacities may represent interstitial fluid overload versus fibrosis. Patient is followed by Dr. Chun and continued on CAPD. Solu-Cortef decreased to 50 mg twice daily. Patient had 1 bloody stool last night and a smear only this morning. He is having significant sputum production for which a sputum culture will be requested. 01/06: Patient evaluated this afternoon. Patient removed his Dobbhoff tube early this morning. He continues to be treated for severe oropharyngeal thrush. He continue with peritoneal dialysis without complications. Blood cultures show no growth to date. Hemoglobin 8.9, stable. WBC 5.0, sodium 133, BUN 54, creatinine 4.83, potassium 3.9. Repeat chest x-ray shows congestive heart failure, pneumonia cannot be excluded infectious disease on consult. Sputum cultures have been requested. He'll continue on PD exchanges. Cortef added 10 mg twice daily, IV hydrocortisone discontinued. He will start a liquid diet today, ensure 3 times a day has been added. He will be transferred out to the ICU today. 01/07: The patient is now seen on the [facility] floor. Patient's mouth continues to be sore and he states he has no appetite. His tongue still has some denuded areas but otherwise improving. PT and OT is following. Speech therapy is performing modified barium swallow today. Patient has been seen by Dr. Valdes and he is in agreement with current treatment with Diflucan IV and oral meds. 01/08: Patient was given a Dulcolax suppository last evening. MiraLAX has been added today. Mouth sores continue to be a problem. He is currently on a full liquid diet. Patient has been followed by speech therapy recommending a full liquid nectar thick consistency diet and progress as tolerated. Respiratory status has been stable. Pulse ox 99% on room air, patient has been afebrile, heart rate in the 60s. White blood cell count of 6.7, hemoglobin of 9.5, plate count is 394, sodium is 132, potassium is 3.9, chloride is 96, BUN is 47 creati nine is 5.02. Blood pressure is 136/76, vital signs are stable. Only medicine has signed off and following on an as-needed basis. We are planning for patient return to [facility] tomorrow and patient is agreeable with this. Patient's brother is at the bedside. 01/09: Patient has been afebrile, heart rate running in the 70s to 90s, blood pressure 156/79. Pulse ox 93% on room air. Patient continues to have sore mouth. He is eating very little. Speech therapy has recommended soft diet and advance as he is able to tolerate. The patient will be discharged today back to [facility] to complete his course of therapy. Patient is being discharged in stable condition. Discharge diagnoses: 1. Lower GI bleed of unclear etiology possible diverticular bleed. 2. Recent influenza A pneumonia. Patient did receive and finish Tamiflu treatment. 3. Severe thrush with tongue ulcers. 4. Chronic systolic heart failure. 5. CAD post-PCI. Stable 6. Paroxysmal atrial fibrillation. Stable 7. Hypertension. 8. Hyperlipidemia. 9. Adrenal insufficiency. 10. Severe protein calorie malnutrition. 11. Recurrent depression. 12. Severe GERD. 13. Diabetes mellitus type 2. 14. End-stage renal disease on CAPD. 15. Anemia of chronic kidney disease. 16. Severe protein calorie malnutrition 17. Possible aspiration secondary to dysphagia. Discharge plan: Return to [facility] Impression and plan of care have been directed as dictated by the signing physician. Margot Dorado nurse practitioner acting as scribe for signing physician. Patient Condition at Discharge: Good Plan - Discharge Summary Discharge Rx Participant: No New Discharge Prescriptions: New diphenhydrAMINE ELIXIR [Benadryl Elixir] 75 mg PO TID cup Hydrocortisone [Cortef] 10 mg PO BID tab Fluconazole [Diflucan] 200 mg PO DAILY@1400 #21 tab Clotrimazole Jania [Mycelex Jania] 10 mg MUCOUS MEM 5XD #70 jania Nystatin 100,000 Unit/ml Susp [Mycostatin Oral Susp] 3,000,000 unit PO TID #30 cup Lidocaine Viscous [Xylocaine Viscous 2%] 30 ml PO TID ml Benzocaine Blakely [Hurricaine Blakely] 1 applic MUCOUS MEM TID PRN #30 spray PRN Reason: sore tongue Continue Gemfibrozil [Lopid] 600 mg PO DAILY Polyethylene Glycol 3350 [Miralax] 17 gm PO DAILY Ondansetron HCl [Zofran] 4 mg PO Q6H PRN PRN Reason: Nausea And Vomiting Na Phos,M-B/Na Phos,Di-Ba [Fleet Adult] 133 ml RECTAL DAILY PRN PRN Reason: Constipation Bisacodyl [Dulcolax] 10 mg RECTAL DAILY PRN PRN Reason: Constipation Acetaminophen [Tylenol] 975 mg PO Q6H PRN PRN Reason: Pain Or Fever > 100.5 Calcium Carb-Mag Carb-Folic [Magnebind 400] 1 tab PO AC-TID Lanthanum Carbonate 1,000 mg PO AC-TID Velphoro Tablet 500 Mg 500 mg PO DAILY Vit B Complx C/Folic Acid/Zinc [Renaplex Tablet] 1 tab PO DAILY@1700 Pantoprazole Sodium [Protonix] 40 mg PO DAILY@0600 Nepho Supplement 240 ml PO HS Lidocaine 5% Patch [Lidoderm 5% Patch] 1 patch TOPICAL DAILY Gentamicin 0.1% Cream 1 applic TOPICAL DAILY Amiodarone [Cordarone] 200 mg PO DAILY tab Atorvastatin [Lipitor] 40 mg PO DAILY tab Insulin Detemir (Levemir) [Levemir] 6 unit SQ HS syr Ipratropium-Albuterol Nebulize [Duoneb 0.5 mg-3 mg/3 ml Soln] 3 ml INHALATION RT-Q2H PRN ampul.neb PRN Reason: Shortness Of Breath Or Wheezing Lidocaine Viscous 2% [Xylocaine Viscous] 5 ml MUCOUS MEM ACHS ml Midodrine [ProAmatine] 10 mg PO AC-TID PRN tab PRN Reason: Hypotension Mirtazapine [Remeron] 15 mg PO HS tab Atenolol [Tenormin] 12.5 mg PO DAILY Epoetin Kenan [Procrit] 10 unit SQ FR@1700 INSULIN ASPART (NovoLOG) [NovoLOG (formulary)] See Protocol SQ ACHS Magnesium Hydroxide [Milk of Magnesia] 2,400 mg PO DAILY PRN PRN Reason: Constipation Sevelamer [Renvela] 2,400 mg PO BID@0800,1700 Acetaminophen-Codeine 300-30mg [Tylenol w/codeine #3] 1 tab PO Q6H PRN #12 tab PRN Reason: Pain Discontinued Biotene Dry Mouth Liquid 15 ml PO DAILY Mouth Wash 5 ml PO Q6H PRN PRN Reason: SORE MOUTH Discharge Medication List Gemfibrozil [Lopid] 600 mg PO DAILY 03/06/17 [History] Polyethylene Glycol 3350 [Miralax] 17 gm PO DAILY 07/12/17 [History] Acetaminophen [Tylenol] 975 mg PO Q6H PRN 12/18/18 [History] Bisacodyl [Dulcolax] 10 mg RECTAL DAILY PRN 12/18/18 [History] Calcium Carb-Mag Carb-Folic [Magnebind 400] 1 tab PO AC-TID 12/18/18 [History] Gentamicin 0.1% Cream 1 applic TOPICAL DAILY 12/18/18 [History] Lanthanum Carbonate 1,000 mg PO AC-TID 12/18/18 [History] Lidocaine 5% Patch [Lidoderm 5% Patch] 1 patch TOPICAL DAILY 12/18/18 [History] Na Phos,M-B/Na Phos,Di-Ba [Fleet Adult] 133 ml RECTAL DAILY PRN 12/18/18 [History] Nepho Supplement 240 ml PO HS 12/18/18 [History] Ondansetron HCl [Zofran] 4 mg PO Q6H PRN 12/18/18 [History] Pantoprazole Sodium [Protonix] 40 mg PO DAILY@0600 12/18/18 [History] Velphoro Tablet 500 Mg 500 mg PO DAILY 12/18/18 [History] Vit B Complx C/Folic Acid/Zinc [Renaplex Tablet] 1 tab PO DAILY@1700 12/18/18 [History] Amiodarone [Cordarone] 200 mg PO DAILY tab 01/02/19 [Rx] Atorvastatin [Lipitor] 40 mg PO DAILY tab 01/02/19 [Rx] Insulin Detemir (Levemir) [Levemir] 6 unit SQ HS syr 01/02/19 [Rx] Ipratropium-Albuterol Nebulize [Duoneb 0.5 mg-3 mg/3 ml Soln] 3 ml INHALATION RT-Q2H PRN ampul.neb 01/02/19 [Rx] Lidocaine Viscous 2% [Xylocaine Viscous] 5 ml MUCOUS MEM ACHS ml 01/02/19 [Rx] Midodrine [ProAmatine] 10 mg PO AC-TID PRN tab 01/02/19 [Rx] Mirtazapine [Remeron] 15 mg PO HS tab 01/02/19 [Rx] Atenolol [Tenormin] 12.5 mg PO DAILY 01/03/19 [History] Epoetin Kenan [Procrit] 10 unit SQ FR@1700 01/03/19 [History] INSULIN ASPART (NovoLOG) [NovoLOG (formulary)] See Protocol SQ ACHS 01/03/19 [History] Magnesium Hydroxide [Milk of Magnesia] 2,400 mg PO DAILY PRN 01/03/19 [History] Sevelamer [Renvela] 2,400 mg PO BID@0800,1700 01/03/19 [History] Acetaminophen-Codeine 300-30mg [Tylenol w/codeine #3] 1 tab PO Q6H PRN #12 tab 01/09/19 [Rx] Benzocaine Blakely [Hurricaine Blakely] 1 applic MUCOUS MEM TID PRN #30 spray 01/09/19 [Rx] Clotrimazole Jania [Mycelex Jania] 10 mg MUCOUS MEM 5XD #70 jania 01/09/19 [Rx] Fluconazole [Diflucan] 200 mg PO DAILY@1400 #21 tab 01/09/19 [Rx] Hydrocortisone [Cortef] 10 mg PO BID tab 01/09/19 [Rx] Lidocaine Viscous [Xylocaine Viscous 2%] 30 ml PO TID ml 01/09/19 [Rx] Nystatin 100,000 Unit/ml Susp [Mycostatin Oral Susp] 3,000,000 unit PO TID #30 cup 01/09/19 [Rx] diphenhydrAMINE ELIXIR [Benadryl Elixir] 75 mg PO TID cup 01/09/19 [Rx] Follow up Appointment(s)/Referral(s): Juan Ramon Maddox MD [Primary Care Provider] - 1-2 days Activity/Diet/Wound Care/Special Instructions: Continue cool solution for an additional 10 days. CAPD: 1.5% solution, 2000 ML at 0600,1200,1800. 1.5%, 2500 ML at 0000.
[2019-01-09 12:22] LABS: Glucose,Whole Blood 102 mg/dL (75-99)
[2019-01-09] MEDS ORDERED: FLUCONAZOLE 100 MG TAB PO SCH (14:00)
[2019-01-09 15:59] VITALS: BP 134/77; PULSE 65; TEMP 98
--- NOTE | 2019-01-09 16:05 | PN ---
PROGRESS NOTE DATE OF SERVICE: 01/09/2019. REASON FOR FOLLOWUP: Oral thrush with oropharyngeal candidiasis. INTERVAL HISTORY: The patient is afebrile. The patient is feeling better. The patient's overall has improved. Denies any chest pain or shortness of breath or cough. No abdominal pain. PHYSICAL EXAMINATION: Blood pressure 156/79 with a pulse of 93, temperature 97.9. General description is an elderly male lying in bed in no distress. HEENT EXAMINATION: Oral thrush and redness have improved. LUNGS: Unlabored breathing. Clear to auscultation anteriorly. HEART: S1, S2. Regular rate and rhythm. ABDOMEN: Soft. No tenderness. LABS: No new labs have been obtained today. DIAGNOSTIC IMPRESSION AND PLAN: Patient with extensive thrush with oropharyngeal candidiasis. Patient at this time is to continue with oral Levaquin for another 2 weeks in addition to the nystatin swish and swallow for another week to 10 days and have close outpatient followup. Son was present at bedside. Questions and concerns were answered. MMODL / IJN: [id number] /
[2019-01-11] MEDS ORDERED: DARBEPOETIN ALFA 40 MCG/0.4 ML SYRINGE SQ SCH (17:00)
== END 2019-01-09 16:54 | DRG 377 ==
LOC: EC 12:46 → 2SICU 14:38 → 4SSUR 01-06 14:55
PROVIDERS: ADMIT Internal Medicine; ATTEND Internal Medicine
PROC: 3E1M39Z Irrigation of Peritoneal Cavity using Dialysate, Percutaneous Approach (ICD-10-PCS; principal; 2019-01-03)
PROC: 0DH67UZ Insertion of Feeding Device into Stomach, Via Natural or Artificial Opening (ICD-10-PCS; 2019-01-04)
PROC: 3E0G76Z Introduction of Nutritional Substance into Upper GI, Via Natural or Artificial Opening (ICD-10-PCS; 2019-01-04)
DX: K57.31 Diverticulosis of large intestine without perforation or abscess with bleeding (principal); E43 Unspecified severe protein-calorie malnutrition; N18.6 End stage renal disease; I50.23 Acute on chronic systolic (congestive) heart failure; B37.0 Candidal stomatitis; E27.40 Unspecified adrenocortical insufficiency; Z68.1 Body mass index [BMI] 19.9 or less, adult; I13.2 Hypertensive heart and chronic kidney disease with heart failure and with stage 5 chronic kidney disease, or end stage renal disease; D62 Acute posthemorrhagic anemia; N17.9 Acute kidney failure, unspecified; E87.2 Acidosis; F33.9 Major depressive disorder, recurrent, unspecified; E11.22 Type 2 diabetes mellitus with diabetic chronic kidney disease; I48.0 Paroxysmal atrial fibrillation; I95.89 Other hypotension; J44.9 Chronic obstructive pulmonary disease, unspecified; E83.9 Disorder of mineral metabolism, unspecified; D63.1 Anemia in chronic kidney disease; Z66 Do not resuscitate; T17.990A Other foreign object in respiratory tract, part unspecified in causing asphyxiation, initial encounter; K12.0 Recurrent oral aphthae; K21.9 Gastro-esophageal reflux disease without esophagitis; M54.9 Dorsalgia, unspecified; E87.6 Hypokalemia; G89.4 Chronic pain syndrome; K44.9 Diaphragmatic hernia without obstruction or gangrene; N40.0 Benign prostatic hyperplasia without lower urinary tract symptoms; R68.2 Dry mouth, unspecified; E03.9 Hypothyroidism, unspecified; K59.00 Constipation, unspecified; E78.5 Hyperlipidemia, unspecified; I25.10 Atherosclerotic heart disease of native coronary artery without angina pectoris; M19.90 Unspecified osteoarthritis, unspecified site; Z99.2 Dependence on renal dialysis; Z79.4 Long term (current) use of insulin; Z79.899 Other long term (current) drug therapy; Z71.3 Dietary counseling and surveillance; Z95.5 Presence of coronary angioplasty implant and graft; Z87.311 Personal history of (healed) other pathological fracture; Z87.01 Personal history of pneumonia (recurrent); Z98.42 Cataract extraction status, left eye; Z98.41 Cataract extraction status, right eye; Z91.011 Allergy to milk products; Z88.5 Allergy status to narcotic agent; Z88.8 Allergy status to other drugs, medicaments and biological substances; Z91.018 Allergy to other foods; Z82.49 Family history of ischemic heart disease and other diseases of the circulatory system; Z84.1 Family history of disorders of kidney and ureter; Z83.2 Family history of diseases of the blood and blood-forming organs and certain disorders involving the immune mechanism; Z87.81 Personal history of (healed) traumatic fracture
CPT/HCPCS: 36415; 71045; 71046; 80048; 80053; 83036; 83605; 83735; 84100; 84484; 85025; 85610; 85730; 86850; 86900; 86901; 87040; 93005; 94640; 94760; 96360; 96361; 99285